=== PATIENT | female | born 1955 | race Caucasian/White ===

== ENCOUNTER 2020-07-31 11:05 | Outpatient (CLI) | payer MEDICARE, MEDICAID, SELFPAY ==
[2020-07-31 11:28] LABS: Basophils Percent Auto 0.3 % (0.2-1.2); Eosinophils Absolute Auto 0.2 K/mm3 (0-0.3); Hematocrit 37.9 % (37.0-47.0); Immature Granulocyte Absolute 0.05 K/mm3 (0.00-0.031); Immature Granulocyte Percent A 0.5 % (0-0.5); Lymphocytes Absolute Auto 1.74 K/mm3 (0.9-3.2); Lymphocytes Percent Auto 17.7 % (18.3-44.2); Mean Corpuscular HGB Conc 31.7 g/dl (32-36); Mean Corpuscular Hemoglobin 27.5 pg (26-34); Mean Corpuscular Volume 86.9 fl (80-100); Mean Platelet Volume 9.3 fl (7.4-10.4); Monocytes Absolute Auto 0.9 K/mm3 (0.1-0.6); Monocytes Percent Auto 9.5 % (2.6-8.5); Neutrophils Absolute Auto 6.9 K/mm3 (1.3-6.7); Platelet Count Result 285 k/mm3 (150-375); Red Blood Count 4.36 M/mm3 (4.2-5.4); Red Cell Distribution Width 15.2 % (11.5-14.5); White Blood Count 9.8 K/mm3 (4.5-10.0)
[2020-07-31 15:12] LABS: Iron 38 ug/dL (37-170)
[2020-07-31 15:22] LABS: Percent Iron Saturation 10 % (20-50)
== END 2020-07-31 11:06 | disposition home or self-care (01) ==
PROVIDERS: PCP Internal Medicine; Visit Provider Internal Medicine Hematology & Oncology
DX: D50.9 Iron deficiency anemia, unspecified (principal)
CPT/HCPCS: 36415; 82728; 83540; 83550; 85025

== ENCOUNTER 2025-03-19 10:04 | Emergency (ER) | payer MEDICARE, MEDICAID, SELFPAY ==
--- NOTE | ~2025-03-19 | XR_ITS ---
XR shoulder LT min 2V Ordering provider: Vitaliy Otto III, DO History: . FALL, PAIN AND DECREASED rom, LEFT SHOULDER . Comparison: None. FINDINGS: BONES: No acute fracture or dislocation. JOINT SPACES: The acromioclavicular joint is normal. The glenohumeral joint is normal. SOFT TISSUES: Normal. Stents are seen in the left brachiocephalic and subclavian vessels area. IMPRESSION: No acute osseous abnormality left shoulder. Reviewed, dictated and finalized at location A.
[2025-03-19 10:09] VITALS: BP 129/64; PULSE 74; RESP 16; TEMP 36.6; O2SAT 94
--- OUTSIDE RECORDS SUMMARY | 2025-03-19 10:51 | XMS_ITS | Encounter Summary ---
Author Organization [facility] Health Address [address] [place] [address] [place] [address] Care Team Providers Care Corporation Officer Name Role Phone Mar Reynolds MD Primary Care Provider Reason for Visit * Reason Onset Date Comments Appointment 08/17/2019 Encounter Details Date Type Department Care Team (Late st Contact Info) Description 08/17/2019 Telephone [facility] [address] [place], [place] [id number] Lisa Cancino Appointment Social History Tobacco Use Types Packs/Day Years Used Date Smoking Tobacco: Former Cigarettes 2 46 Smokeless Tobacco: Never Comments:QUIT 9 YEARS AGO Alcohol Use Standard Drinks/Week Comments Yes 0 (1 standard drink = 0.6 oz pur e alcohol) HEAVY IN PAST, QUIT-1990 Comments Unknown Sex and Gender Information Value Date Recorded Sex Assigned at Not on file Legal Sex Female 9:49 AM CUTTER DOWN Gender Identity Not on file Sexual Orientation Not on file documented as of this encounter Miscellaneous Notes * Telephone Encounter - Lisa Cancino - 08/17/2019 3:16 PM CDT 1st attempt to contact this patient to reschedule appointment. No answer vm left. documented in this encounter Plan of Treatment Not on file documented as of this encounter Visit Diagnoses Not on filedocumented in this encounter Care Teams Corporation Officer Relationship Specialty Start Date End Date Mar Reynolds MD [address] [facility] [address] [place] [id number] PCP - General Internal Medicine 12/27/18 documented as of this encounter
--- OUTSIDE RECORDS SUMMARY | 2025-03-19 10:51 | XMS_ITS | Referral Summary ---
Author Organization [facility] Physician Office Building [address] [place] [address] Care Team Providers Care Lip Of Shank Cutter Name Role Phone Khalif Reynolds MD Primary Care Provide r Chriss Hendrickson MD Unavailable [phone] Zaid Adams MD Unavailable [phone] Nadir Ross MD Unavailable [phone] Encounters Date Type Department Care Team Description 03/07/2025 2:00 PM CDT Office Visit [facility] Pulmonary at [address] [place] [id number] Elizabeth Barr NP Immunoglobulin G subclass deficiency (HCC) (Primary Dx); Moderate chronic obstructive pulmonary disease (HCC); Obstructive sleep apnea 03/01/2025 7:00 PM CDT - 03/01/2025 11:59 PM CDT Hospital Encounter [facility] 1 [place] [address] Obstructive sleep apnea Discharge Disposition: Discharge to home or self care 02/12/2025 9:30 AM CDT Office Visit [facility] Sleep Medicine at [address] [place] [phone] Luli Devlin MD Obstructive sleep apnea (Primary Dx); Hypersomnia; Obesity, unspecified class, unspecified obesity type, unspecified whether serious comorbidity present 02/08/2025 9:30 AM CDT Office Visit [facility] Minimally Invasive Surgery [address] [place] [address] 12th Floor, [place] [address] Asad Aldridge MD Incisional hernia, without obstruction or gangrene (Primary Dx); Malignant neoplasm of right ovary (HCC) 01/14/2025 Telephone [facility] [address] [facility] [address] [place] [address] Asad Aldridge MD 01/14/2025 Telephone [facility] [id number] [place] [address] [address] [place] [address] Cat Villalba MD appointment schedule from Last 3 Months Allergies Active Allergy Reactions Criticality Noted Date Comments Doxycycline Hives Medium 12/12/2020 Levofloxacin Rash,Hives Medium 08/16/2014 Sulfa (Sulfonamide Antibiotics) Rash,Hives Medium 1001/2014 Medications calcitRIOL (ROCALTROL) 0.25 mcg capsule Take 1 capsule (0.25 mcg total) by mouth nightly Active lisinopril (PRINIVIL,ZESTRI L) 2.5 mg tablet Take 1 tablet (2.5 mg total) by mouth daily after lunch Active metoprolol (LOPRESSOR) 25 mg tablet Take 1 tablet (25 mg total) by mouth 2 (two) times a day Active montelukast (SINGULAIR) 10 mg tabletIndication s:Maintenance Therapy for Asthma Take 1 tablet (10 mg total) by mouth daily before lunch Active nitroglycerin (NITROSTAT) 0.[address] 1 tablet (0.4 mg total) under the tongue every 5 (five) minutes as needed for chest pain Active pantoprazole DR (PROTONIX) 40 mg EC tablet Take 1 tablet (40 mg total) by mouth every morning Active linaclotide (LINZESS) 290 mcg capsule Take 1 capsule (290 mcg total) by mouth every morning Active fluticasone propionate (FLONASE) 50 mcg/actuation nasal spray Administer 2 sprays into each nostril every morning 020 Active BD Ultra-Fine Meg Pen Needle 32 gauge x needle 022 Active allopurinoL (ZYLOPRIM) 300 mg tablet Take 1 tablet (300 mg total) by mouth every morning Active albuterol 0.63 mg/3 mL nebulizer solution Take 3 mL (0.63 mg total) by nebulization 2 (two) times a day Active multivit ujlilrto-xstt-DS -calcium (THERA-M) 9 mg iron-400 mcg tablet Take 1 tablet by mouth daily 30 tablet Active Additional Information Patient not taking.Reported on 03/07/2025 glimepiride (AMARYL) 2 mg tablet Take by mouth 2 (two) times a day before breakfast and dinner Active gabapentin (NEURONTIN) 300 mg capsule Take 1 capsule (300 mg total) by mouth 2 (two) times a day Active potassium chloride ER 20 mEq CR tablet Take 1 tablet (20 mEq total) by mouth Active Prolia 60 mg/mL syringe INJECT 1 ML SUBCUTANEOUSLY DIRECTED Active levothyroxine (SYNTHROID) 25 mcg tablet Take 1 tablet (25 mcg total) by mouth daily Active ipratropium (ATROVENT) 0.02 % nebulizer solution USE 1 VIAL VIA NEBULIZER EVERY 6 HOURS NEEDED Active Jardiance 10 mg tablet Take 1 tablet (10 mg total) by mouth daily Active budesonide-formo teroL (SYMBICORT) 160-4.5 mcg/actuation inhaler Inhale 2 puffs 2 (two) times a day Rinse mouth with water after use to reduce aftertaste and incidence of candidiasis. Do not swallow. 1 each Active albuterol HFA (ProAir HFA) 90 mcg/actuation inhaler Inhale 2 puffs every 4 (four) hours as needed for wheezing 8.5 g 2024 Active rosuvastatin (CRESTOR) 40 mg tablet Take 1 tablet (40 mg total) by mouth daily Active ipratropium-albu teroL (COMBIVENT RESPIMAT) 20-100 mcg/actuation inhalerIndicatio ns:Chronic Obstructive Pulmonary Disease with Bronchospasms Inhale 1 puff 4 (four) times a day as needed for wheezing 4 g 2 024 2024 Active budesonide-formo teroL (SYMBICORT) 160-4.5 mcg/actuation inhaler Inhale 2 puffs 2 (two) times a day Rinse mouth with water after use. Do not swallow. Active ensifentrine (Ohtuvayre) 3 mg/2.5 mL suspension for nebulization Inhale PRN Active zolpidem (AMBIEN) 10 mg tabletIndication s:Sleep-Onset Insomnia Take 1 tablet (10 mg total) by mouth nightly as needed for sleep (for sleep study) 1 tablet 025 Active torsemide (DEMADEX) 100 mg tablet Take 1 tablet (100 mg total) by mouth 2 (two) times a day 025 Active Trulicity 3 mg/0.5 mL pen injector Inject 0.5 mL (3 mg total) under the skin once a week 025 Active azithromycin (ZITHROMAX) 500 mg tabletIndication s:Moderate chronic obstructive pulmonary disease (HCC) Take 1 tablet (500 mg total) by mouth 3 (three) times a week On Tuesday and Tuesday 36 tablet 3 025 Active apixaban (ELIQUIS) 2.5 mg tablet Take 1 tablet (2.5 mg total) by mouth 2 (two) times a day for 28 days 56 tablet 022 2021 Discontinued cefuroxime (CEFTIN) 250 mg tablet every 12 hours 025 2024 Active Problems Problem Noted Date Diagnosed Date Incarcerated incisional hernia 02/21/2025 Incisional hernia, without obstruction or gangre ne 02/08/2025 Metatarsalgia of left foot 09/24/2024 Pain of left heel 05/29/2024 Plantar fasciitis of left foot 05/29/2024 Skin tag 04/17/2024 Skin lesion 12/07/2023 Pneumonia due to Streptococcus 10/02/2023 Coronary arteriosclerosis 09/23/2023 Overview (09/23/2023): s/p stent 09/28 Immunoglobulin G subclass deficiency 09/19/2023 Osteoarthritis of left knee 09/15/2023 Erythrocytosis 09/08/2023 Elevated liver enzymes 08/30/2023 Osteoporosis 07/19/2023 Hypokalemia 06/02/2023 Steatosis of liver 05/30/2023 Pruritic rash 03/07/2023 Neuropathy 01/20/2023 COVID-19 11/11/2022 Infection due to Klebsiella pneumoniae Multiple nodules of lung 09/07/2022 Assessment & Plan (05/10/2024 11:59 AM CDT): These appear to be stable per last CT imaging She has been followed with CT chest abdomen pelvis through Oncology with her next CT scheduled for June She does qualify for annual low-dose cancer screening, these will start after surveillance imaging through oncology is completed Hyperglycemia 09/01/2022 Urinary tract infectious disease 06/24/2022 Adnexal mass 06/02/2022 Severe malnutrition 06/02/2022 Abnormal voice 05/20/2022 Chronic pain syndrome 05/20/2022 Constipation 05/20/2022 Neck pain 05/20/2022 Pain in limb 05/20/2022 Onychomycosis 05/20/2022 Rectal hemorrhage 05/20/2022 Swelling of upper arm 05/20/2022 Syncope and collapse 05/20/2022 Tinea corporis 05/20/2022 Urinary incontinence 05/20/2022 Peripheral vascular disease 05/20/2022 Ovarian mass 05/18/2022 Overview (05/18/2022): Added automatically from request for surgery [id number] Abdominal pain 05/17/2022 Ovarian cancer 05/16/2022 Overview (02/14/2023): STEVE/BSO May 2022, then chemotherapy Pseudomonas aeruginosa infection 05/10/2022 Infection due to Pseudomonas species 05/10/2022 Chronic cough 03/19/2022 Assessment & Plan (05/10/2024 12:04 PM CDT): She has a history of Streptococcus and Pseudomonas infection (06/2023) She had no clinical benefit from Augmentin that was prescribed several weeks ago and continues to have yellow/green sputum in increased amounts Check sputum culture Uncontrolled type 2 diabetes mellitus 01/29/2022 Dyslipidemia 01/28/2022 Pain in left foot 12/28/2021 Arthralgia of left knee 12/10/2021 Selective deficiency of IgG 09/01/2021 Dystrophia unguium 01/21/2021 Ganglion cyst 09/24/2020 Leukemoid reaction 07/31/2020 Avulsion of toenail 06/02/2020 Cysts of both ovaries 04/14/2020 Plantar fasciitis of right foot 02/11/2020 Diabetic neuropathy 01/14/2020 Subclavian steal syndrome 01/14/2020 Hyperthyroidism 01/14/2020 Abnormal cardiovascular stress test 06/20/2019 Allergic rhinitis 02/05/2019 Anemia 02/05/2019 CAD (coronary artery disease) 02/05/2019 Overview (04/14/2020): Stented 2013, 2015, 2019 Depression 02/05/2019 GERD (gastroesophageal reflux disease) 9 Overview (04/14/2020): EGD 10/19/17 Gout 02/05/2019 Hyperlipidemia 02/05/2019 Hypertension 02/05/2019 IBS (irritable bowel syndrome) 02/05/2019 Overview (04/14/2020): Constipation Migraine 02/05/2019 NAFLD (nonalcoholic fatty liver disease) 019 Overview (02/14/2023): 08/14/18 CT w/o contrast: NAFLD 05/07/19 Fibroscan CAP 321, LSM 9.4 kPa dwp 01/14/20 Fibroscan CAP 323, LSM 10.5 kPa dwp 08/14/18 CT w/o contrast: NAFLD 05/07/19 Fibroscan CAP 321, LSM 9.4 kPa dwp 01/14/20 Fibroscan CAP 323, LSM 10.5 kPa dwp 02/07/23 Fibroscan CAP 301, LSM 5.7 kPa dwp Morbid obesity 02/05/2019 Obstructive sleep apnea 02/05/2019 Overview (04/14/2020): CPAP since about 2016 Assessment & Plan (03/10/2025 8:24 PM CDT): Continue PAP use with all sleep She is aware of the risks of uncorrected sleep apnea I have reinforced weekly cleaning and frequent supply replacement She should follow closely with sleep medicine Assessment & Plan (10/18/2024 1:36 PM CLOTH MENDER): Continue PAP use with all sleep She is aware of the risks of uncorrected sleep apnea I have reinforced weekly cleaning Assessment & Plan (05/10/2024 12:00 PM CDT): Continue PAP use with all sleep She is aware of the risks of uncorrected sleep apnea Osteoarthritis 02/05/2019 Type 2 diabetes mellitus 02/05/2019 Vitamin D deficiency 02/05/2019 Lipoma 01/08/2019 Retroperitoneal mass 05/29/2018 Renal mass 03/06/2018 Respiratory infection due to fungus 01/11/2018 Goiter 11/22/2017 Assessment & Plan (11/22/2017 4:45 PM CLOTH MENDER): Ultrasound performed ( see report ) No solid nodules that need attention are visualized Continue to watch, no indication for any intervention at this point. Subclinical hyperthyroidism 11/22/2017 Assessment & Plan (02/21/2018 3:49 PM CDT): Check TFT's Start Tapazole if indicated Otherwise, f/u in 6 m Assessment & Plan (11/22/2017 4:44 PM CLOTH MENDER): Will check TFTs Stop PTU ( risk of liver damage ) If TFT's are normal, will recheck and reassess in 3 months Otherwise, will consider use of Tapazole Asthma 05/26/2017 Moderate chronic obstructive pulmonary disease 0 05/26/2017 Assessment & Plan (03/10/2025 8:22 PM CDT): Continue Symbicort 160/4.5 twice daily While she is working she will continue DuoNebs while at home alternating with Combivent when working, not to exceed 4 times daily When she has no longer working we may investigate switch to traditional LAMA therapy or nebulized yupelri Her recent liver enzymes were normal. We have discussed additional therapies to decrease exacerbation frequency Otuvayre was cost prohibitive I will start her on Azithromycin three times weekly. I would also consider biologics cautiously, I will request recent CBC from her PCM We have discussed signs and symptoms that would require additional evaluation or change to her plan of care Assessment & Plan (10/18/2024 1:35 PM CLOTH MENDER): Continue Symbicort 160/4.5 twice daily While she is working she will continue DuoNebs while at home alternating with Combivent when working, not to exceed 4 times daily When she has no longer working we may investigate switch to traditional LAMA therapy Her recent liver enzymes were normal. We have discussed additional therapies to decrease exacerbation frequency I will start her on Otuvayre twice daily via nebulizer We have discussed signs and symptoms that would require additional evaluation or change to her plan of care Assessment & Plan (05/10/2024 12:02 PM CDT): Continue Symbicort 160 twice daily While she is working she will continue DuoNebs while at home alternating with Combivent when working, not to exceed 4 times daily When she has no longer working we may investigate switch to traditional LAMA therapy She has previously had elevated liver enzymes however consider roflumilast if sputum culture returns negative Mitral regurgitation 02/09/2017 Stage 2 chronic kidney disease 08/24/2016 Dyspnea on exertion 10/29/2015 Dizziness 09/17/2015 Immunizations Immunization Administration Dates Next Due Hep B, Unspecified 03/18/2023 Influenza, Quadrivalent, Hig h Dose, Preservative Free, Intrr 08/15/2022 Influenza, Quadrivalent, Spl it, Intramuscular 07/19/2019 Influenza, Quadrivalent, Spl it, Preservative Free, Intramuscular 08/27/2020,07/19/2019 Influenza, Trivalent, IM (MDV) 09/07/2021,2012 Pfizer Sars-Cov-2 Bivalent V accination (12+ YRS) 09/06/2022,03/01/2022 Pneumococcal Polysaccharide PPV23 12/17/2015 Sars-CoV-2, Unspecified 09/06/2022,03/01/2022, Tdap 07/19/2019 Social History Tobacco Use Types Packs/Day Years Used Date Smoking Tobacco: Former Cigarettes 1.3 44 1 967 - 2011 Smokeless Tobacco: Never Tobacco Cessation:Counseling Given: Not Answered Alcohol Use Standard Drinks/Week Comments No 0 (1 standard drink = 0.6 oz pur e alcohol) AUDIT-C Answer Date Recorded Q1: How often do you have a drink containing alc ohol? Monthly or less 2022 Q2: How many drinks containi ng alcohol do you have on a typical day when you are drinking? 1 or 2 2022 Q3: How often do you have si x or more drinks on one occasion? Never 2022 PHQ-2 Answer Date Recorded PHQ-2 Score 0 07/05/2019 Personal Safety Answer Date Recorded Have you ever been in or are you currently in a harmful physical or emotional relationship or is someone making you feel afraid or unsafe? Denies 05/03/2023 Comments No Sex and Gender Information Value Date Recorded Sex Assigned at Not on file Legal Sex Female 12:59 PM CLOTH MENDER Gender Identity Not on file Sexual Orientation Not on file Last Filed Vital Signs Vital Sign Reading Time Taken Comments Blood Pressure 114/50 03/07/2025 1:45 PM CDT Pulse 90 03/07/2025 1:45 PM CDT Temperature 36.4 C (97.5 F) 03/07/2025 1:45 PM CDT Respiratory Rate 20 02/21/2025 10:18 AM CDT Oxygen Saturation 93% 03/07/2025 1:45 PM CDT Inhaled Oxygen Concentration - - Weight 85.4 kg (188 lb 3.2 oz) 03/07/2025 1:45 P M CDT Height 157.5 cm (5' 2 ) 03/07/2025 1:45 PM CDT Body Mass Index 34.42 03/07/2025 1:45 PM CDT Plan of Treatment Upcoming Encounters Date Type Department Care Team (Late st Contact Info) Description 05/21/2025 Hospital Encounter [facility] Operating Room 1 [place] [id number] Asad Aldridge MD [address] [place] [address] (work) Scheduled Procedures Name Priority Associated Diagnoses Date/Ti me XI REPAIR INCISIONAL HERNIA - LAPAROSCOPIC ROBOTIC ASSISTED RETRO-RECTUS APPROACH Incarcerated incisional hernia Medical Devices Implanted Type Area Shuttle Threader Device Identifier Shelf Expiration Date Model / Serial / Lot [employer] Xcela Power Port 8fr [id number] - [id number] Implanted:Qty: 1 on 07/09/2022 at [facility] [employer] 01/05/2027 [id number] / / [id number] Procedures Procedure Name Priority Date/Time Associated Diagnosis Comments PSG (SIMPLE) Routine 03/05/2025 Obstructive sleep apnea COMPREHENSIVE METABOLIC PANEL Routine 10/02/2024 10:02 AM CLOTH MENDER HEMOGLOBIN A1C Timed 05/17/2022 12:15 AM CDT LIPID PANEL Timed 05/17/2022 12:15 AM CDT from Last 3 Months or Most Recently Relevant to Health Maintenance Results * PSG (03/05/2025) Impressions Luli Devlin MD - 03/05/2025 SPLIT NIGHT POLYSOMNOGRAPHY History: Crissy Parham is a 69 y.o. female who presented for a baseline polysomnogram. Reason for sleep study: Obstructive sleep apnea, needs a new device [place] sleepiness score: 1 Weight: 189 lbs BMI: 34.66 Procedure: This overnight split night polysomnogram was performed with the surgical scrub technologist in attendance. Patient is studied with multiple channel polysomnography to include EEG sleep stage recording, cardio-respiratory monitoring, monitoring for limb movements as well as videotaping. Central, frontal, occipital and temporal EEG, bilateral EOG, submental EMG, oral and nasal airflow, thoracoabdominal motion, bilateral anterior tibialis EMG, one lead EKG, snore sensor, pulse oximetry and transcutaneous CO2 were monitored. Sleep stages, periodic limb movements, EEG arousals and respiratory events were scored according to the criteria from The [place] [employer] (AASM) Manual for the scoring of sleep and associated events - version 2.6. Positive airway pressure titration was done using continuous positive airway pressure (CPAP). Findings: Diagnostic portion Baseline parameters: Baseline heart rate=80/m, Oxygen saturation =97% Sleep architecture: Diagnostic polysomnogram revealed total recording time of 229.5 minutes and total sleep time of 166.0 minutes with sleep efficiency of 72.3%. Sleep onset latency was 36.0 minutes, and REM latency 89.5 minutes. N1 9.0%, N2 69.3%, N3 13.6% and REM 8.1% accounted for the total sleep time during the diagnostic portion. EEG profile: EEG was reviewed. Snoring profile: The patient had mild snoring. Snoring was not associated with arousals. Respiratory analysis during diagnostic study: A total of 0 obstructive apneas, 0 mixed apneas, 0 central apneas and 40 hypopneas were seen with AHI of 14.5 per hour. In addition, 5 Respiratory Effort Related Arousals (RERAs) were seen with AHI+RERA index or respiratory disturbance index (RDI) of 16.3. Respiratory events occurred more in supine than non-supine position with a supine AHI 29.1, supine RDI of 32.6, nonsupine AHI of 3.8, and nonsupine RDI of 4.4 and during REM sleep with REM AHI of 57.8 and non-REM AHI 10.6. The study was split after observing significant obstructive respiratory events. Therapeutic portion Sleep architecture: PAP titration revealed total recording time of 215.9 minutes and total sleep time of 162.0 minutes with sleep efficiency of 75.0%. N1 5.2%, N2 63.6%, N3 6.2% and REM 25.0% accounted for the total sleep time during the therapeutic portion. Respiratory analysis during PAP titration: A total of 9 obstructive apneas, 0 mixed apneas, 1 central apneas, 24 hypopneas, and 3 Respiratory Effort Related Arousals (RERAs) were seen. PAP titration: CPAP was started at 4 cm of water. CPAP was incrementally increased to 11 cm of water. Sleep apnea was corrected at final CPAP pressure 11 cm of water where apnea hypopnea index was 0.0 and supine REM sleep was studied. The patient reported no significant change following CPAP titration. Oximetry data: Lowest oxygen saturation was 84%, and this was associated with a respiratory event. The patient had an O2 saturation < 88% for 18.5 minutes. Limb movement profile: A total of 105 periodic limb movements were noted, of which 36 movements were associated with arousal. Total movement index was 38.0 per hour and movement with arousal index was 13.0 per hour. Parasomnia profile: No abnormal behavior to suggest parasomnia was noted. EKG analysis: revealed normal sinus rhythm. Interpretation and Recommendations: This is an abnormal split night polysomnogram due to the presence of: 1. Moderate obstructive sleep apnea during the diagnostic portion of the study. This is supported by snoring, increased apnea/hypopnea index of 14.5, respiratory disturbance index of 16.3 and significant desaturations. Respiratory events occurred more in supine than non-supine position with a supine AHI 29.1, supine RDI of 32.6, nonsupine AHI of 3.8, and nonsupine RDI of 4.4 and during REM sleep with REM AHI of 57.8 and non-REM AHI 10.6. 2. Alleviation of obstructive sleep apnea at 11 cm of water during the therapeutic portion of the study. 3. CPAP at 11 cm of water is recommended for use. 4. ResMed, air touch, F20, small, fullface mask was used during titration. 5. Multiple factors can be contributory such as obesity, thyroid disease and structural/obstructive abnormalities in the upper airway. An evaluation and management of these factors may be beneficial. 6. Hypnotics, sedatives, and related medications have the potential of worsening the apnea and should be avoided. 7. Patients with sleep apnea may have excessive daytime hypersomnolence. If that is the case, driving or handling heavy machinery should be avoided until the apnea and excessive sleepiness have resolved. 8. Weight loss for ideal body weight range is recommended 9. Many periodic limb movements of sleep (PLMS) noted. PLMS can be associated with conditions such as restless leg syndrome, iron deficiency anemia, uremia, peripheral neuropathy, and use of medications such as tricyclic antidepressants. Clinical correlation is recommended. 10. Prolonged sleep latency and reduced sleep efficiency: Patient has prolonged sleep onset latency of 36.0 minutes and reduced sleep efficiency of 72.3%. Factors like, psychiatric illness, insomnia or chronic pain may be contributory as well as poor sleep hygiene and/or daytime napping. Clinical correlation is recommended. Luli Devlin MD [facility] Sleep Medicine Narrative Luli Devlin MD - 03/05/2025 In lab for review Luli Devlin MD SLEEP CENTER ORDERABLES Final Re sult * (ABNORMAL) Comprehensive metabolic panel (10/02/2024 10:02 AM CLOTH MENDER) Glucose 130(H) 65 - 99 mg/dL [facility] Comment: Fasting reference interval For someone without known diabetes, a glucose value >125 mg/dL indicates that they may have diabetes and this should be confirmed with a follow-up test. BUN 15 7 - 25 mg/dL [facility] Creatinine 1.01 0.50 - 1.05 mg/dL [facility] eGFR 61 > OR = 60 mL/min/1.7 3m2 [facility] BUN/creat ratio SEE NOTE: 6 - 22 (calc) [facility] Comment: Not Reported: BUN and Creatinine are within reference range. Sodium 137 135 - 146 mmol/L [facility] Potassium, pl 3.8 3.5 - 5.3 mmol/L [facility] Chloride 101 98 - 110 mmol/L [facility] CO2 26 20 - 32 mmol/L [facility] Calcium 9.4 8.6 - 10.4 mg/dL [facility] Protein, sr 6.8 6.1 - 8.1 g/dL [facility] Albumin 4.1 3.6 - 5.1 g/dL [facility] GLOBULIN 2.7 1.9 - 3.7 g/dL (calc) [facility] Alb/glob ratio 1.5 1.0 - 2.5 (calc) [facility] Bilirubin, total 0.6 0.2 - 1.2 mg/dL [facility] Alk phos 95 37 - 153 U/L [facility] AST 18 10 - 35 U/L [facility] ALT (SGPT) 18 6 - 29 U/L [facility] 10/02/2024 10:0 2 AM CLOTH MENDER 10/02/2024 10:02 AM CLOTH MENDER Lisseth Peters MD LAB BLOOD ORDERABLES Fin al Result Performing Organization Address City/State/[facility] de [facility] Number [facility] [address] [place] [address] * (ABNORMAL) Hemoglobin A1c (05/17/2022 12:15 AM CDT) Hgb A1C 6.0(H) 4.0 - 5.6 % [facility] Estimated Average Glucose 126 mg/dL [facility] Comment: The ADA recommends reporting an estimated Average Glucose (eAG) with all Hemoglobin A1c results using the equation derived from a study of 507 normal and diabetic adults. Minority populations were underrepresented and children were not included. (Diabetes Care 2020; 43(S1): S66-S76). The eAG is not equivalent to a fasting glucose. Blood 05/17/2022 12:1 5 AM CDT 05/17/2022 1:26 AM CDT [facility] Willie Peters MD LAB BLOOD ORDERABLES Fin al Result Performing Organization Address [facility] [facility] de Phone Number [facility] Department [place] [address] * Lipid panel (05/17/2022 12:15 AM CDT) Pathologist [facility] Cholesterol 88 30 - 199 mg/dL [facility] Comment: Interpretive Data Ages < or = 19 years Acceptable: <170 mg/dL Borderline high: 170-199 mg/dL High: >or= 200 mg/dL Ages > or = 20 years Desirable: <200 mg/dL Borderline high: 200-239 mg/dL High: >or= 240 mg/dL Literature References: 1. Expert Panel on Integrated Guidelines for Cardiovascular Health and Risk Reduction in Children and Adolescents. Pediatrics 2011;128:S213 2. NCEP Expert Panel. Circulation 2004;110:227 Current Interpretive Data was last revised on 2018. Triglycerides 100 <=149 mg/dL [facility] Comment: Interpretive Data Ages < or = 9 years Acceptable: <75 mg/dL Borderline high: 75-99 mg/dL High: >or= 100 mg/dL Ages 10 to 20 years Acceptable: <90 mg/dL Borderline high: 90-129 mg/dL High: >or= 130 mg/dL Ages > or = 20 years Desirable: <150 mg/dL Borderline high: 150-199 mg/dL High: 200-499 mg/dL Very high: >or= 499 mg/dL Literature References: 1. Expert Panel on Integrated Guidelines for Cardiovascular Health and Risk Reduction in Children and Adolescents. Pediatrics 2011;128:S213 2. NCEP Expert Panel. Circulation 2004;110:227 Current Interpretive Data was last revised on 2018. HDL 42 >=40 mg/dL [facility] Comment: Interpretive Data Ages < or = 19 years Acceptable: >45 mg/dL Borderline low: 40-45 mg/dL Low: <40 mg/dL Ages > or = 20 years Desirable: >or= 60 mg/dL Low: <40 mg/dL Literature References: 1. Expert Panel on Integrated Guidelines for Cardiovascular Health and Risk Reduction in Children and Adolescents. Pediatrics 2011;128:S213 2. NCEP Expert Panel. Circulation 2004;110:227 Current Interpretive Data was last revised on 2018. LDL, calculated 26 <=129 mg/dL [facility] Comment: Interpretive Data Ages < or = 19 years Acceptable: <110 mg/dL Borderline high: 110-129 mg/dL High: >or= 130 mg/dL Ages > or = 20 years Optimal: <100 mg/dL Near optimal: 100-129 mg/dL Borderline high: 130-159 mg/dL High: >160 mg/dL Literature References: 1. Expert Panel on Integrated Guidelines for Cardiovascular Health and Risk Reduction in Children and Adolescents. Pediatrics 2011;128:S213 2. NCEP Expert Panel. Circulation 2004;110:227 Current Interpretive Data was last revised on 2018. Non-HDL Cholesterol 46 mg/dL [facility] Comment: Interpretive Data Ages < or = 19 years Acceptable: <120 mg/dL Borderline high: 120-144 mg/dL High: >145 mg/dL Ages > or = 20 years When triglycerides are >200 mg/dL, Non-HDL cholesterol is a secondary target of therapy with treatment goals that are 30 mg/dL greater than the LDL cholesterol target. Literature References: 1. Expert Panel on Integrated Guidelines for Cardiovascular Health and Risk Reduction in Children and Adolescents. Pediatrics 2011;128:S213 2. NCEP Expert Panel. Circulation 2004;110:227 Current Interpretive Data was last revised on 2018. Chol/HDL ratio 2 [facility] Blood 05/17/2022 12:1 5 AM CDT 05/17/2022 1:26 AM CDT us Premal Willie Peters MD LAB BLOOD ORDERABLES Fin al Result [facility] Department [place] [address] from Last 3 Months or Most Recently Relevant to Health Maintenance Insurance * Guarantor: Crissy Parhma Account Type Relation to Patient Date of Phone Billing Address Personal/Family Self 1955 [address] [place] [address] [facility] MEDICARE ADVANTAGE IDPA * Guarantor: Crissy Parham Account Type Relation to Patient Date of Phone Billing Address Personal/Family Self 1955 [address] [place] [address] IDPA [facility] MEDICARE ADVANTAGE IDNE [facility] MEDICARE ADVANTAGE Advance Directives For more information, please contact: [phone] * Full Code (Latest Code Status on File) Date Activated Date Inactivated Comments 05/03/2023 12:51 PM 05/04/2023 4:49 AM * Full Code Date Activated Date Inactivated Comments 09/03/2022 7:43 AM 09/04/2022 4:50 AM * Full Code Date Activated Date Inactivated Comments 07/09/2022 7:09 AM 07/10/2022 4:47 AM * Full Code Date Activated Date Inactivated Comments 05/16/2022 11:52 PM 05/18/2022 9:16 PM Care Teams Lip Of Shank Cutter Relationship Specialty Start Date End Date Khalif Reynolds MD [address] [facility] [address] [place] [address] PCP - General Internal Medicine 10/28/17 Chriss Hendrickson MD [address] [place] [address] [place] [address] Referring Physician Obstetrics and Gynecology 01/18/20 Zaid Adams MD [facility] [place] [address] Referring Physician Gastroenterology 02/14/23 Nadir Ross MD [address] [place] [address] Consulting Physician Cardiovascular Disease 02/14/23
--- OUTSIDE RECORDS SUMMARY | 2025-03-19 10:51 | XMS_ITS | Continuity of Care Document ---
Author Organization [facility] Eye [facility] Address [address] [place] [address] [address] [place] [address] Phone Care Team Providers Care Line Construction Superintendent Name Role Phone Parker Cabral Unavailable Unavailable Procedures Procedure Date Visual Field Examination(s) Visual Field Examination(s) Eye Exam & Treatment Optic Nerve Head Eval No Script Corneal Pachymetry Eye Exam, New Patient Advance Directives Directive Yes / No Effective Date File Name No Information Encounters Encounter Description Practice Location Reason(s) For Visit Diagnoses Date Provider Providers Copied on Encounter [facility], [address] [place] [address] [address], [place], [place], [id number], tel:[phone] [facility] No Information 2-200 9 Krishnasamy Parker. [address] [place] [address], [facility], [place]. tel:[phone] Referring Provider: Parker douglas, [address] [place] [address], [facility]. tel:[phone] [facility], [address] [place] [address] [address], [place], [place], [id number], tel:[phone] [facility] No Information 5-200 9 Krishnasamy Parker. [address] [place] [address], [facility], [place]. tel:[phone] Referring Provider: Parker douglas, [address] [place] [address] [address], [place], [address]. tel:[phone] [facility], [address], [place], [place], [id number], tel:[phone] [facility] No Information Feb-2 7-200 9 Misha Herringhil. [address] [place] [address] [address], [place], [facility], . tel:[phone] Referring Provider: Parker douglas, [address] [place] [address] [address], [place], [place], [facility]. tel:[phone] [facility], [address] [place] [address], [place], [place], [id number], tel:[phone] [facility] No Information March-3 0-200 7 Cannon OD Jose. [address] [place] [address] , [address], [place], [address], . tel:[phone] Family History Family Member Type Diagnosis Age At Onset No Information Payers Payer name Insurance type Covered republican ID Authoriza tion(s) Medicare [facility] [id number] Medicaid [facility] [id number] Social History Type Description Quantity Date Captured Comments Sex Female Smoking Status No Information Chief Complaint And Reason For Visit No Information Reason For Referral Reason For Referral No Information History Of Present Illness Encounter Date Complaint History Of Prese nt Illness No Information Functional Status Date Functional Assessmen t No Information Instructions Date Instruction Additional Infor mation No Information Assessments Type Assessment Date No Information Patient Care Teams Name Effective Dates (start - stop) Status Members No Information
--- OUTSIDE RECORDS SUMMARY | 2025-03-19 10:51 | XMS_ITS ---
Author Organization [facility] [address] [place] [address] Care Team Providers Care Paint Preparer Name Role Phone Khalif Reynolds MD Primary Care Provide r Chriss Hendrickson MD Unavailable [phone] Zaid Adams MD Unavailable Nadir Ross MD Unavailable Active Problems Problem Noted Date Diagnosed Date [...] (05/18/2022): Added automatically from request for surgery [id number] Abdominal pain 05/17/2022 Ovarian cancer 05/16/2022 Overview [...] artery disease) 02/05/2019 Overview (04/14/2020): Stented 2013, 2014, 2018 Depression 02/05/2019 GERD (gastroesophageal reflux disease) 9 [...] medicine Assessment & Plan (10/18/2024 1:36 PM GOLD NIB GRINDER): Continue PAP use with all sleep She [...] 11/22/2017 Assessment & Plan (11/22/2017 4:45 PM GOLD NIB GRINDER): Ultrasound performed ( see report ) No solid nodules that need attention are visualized Continue to watch, no indication for any intervention at this point. Subclinical hyperthyroidism 11/22/2017 Assessment & Plan (02/21/2018 3:49 PM CDT): Check TFT's Start Tapazole if indicated Otherwise, f/u in 6 m Assessment & Plan (11/22/2017 4:44 PM GOLD NIB GRINDER): Will check TFTs Stop PTU ( risk [...] care Assessment & Plan (10/18/2024 1:35 PM GOLD NIB GRINDER): Continue Symbicort 160/4.5 twice daily While she [...] 08/24/2016 Dyspnea on exertion 10/29/2015 Dizziness 09/17/2015 Current Treatment and Therapy Plans IV Maintenance Therapy Plan* Plan Start Date:07/09/2022 Plan Provider:Lisseth Peters MD Linked Problems Ovarian cancer (HCC)Ovarian mass Treatment Medications No medications scheduled. PACLItaxel / CARBOplatin (AUC 5) 21 Day Cycles - EVENT SERVICES MANAGER* Plan Start Date:07/04/2022 Plan Provider:Lisseth Peters MD Linked Problems Ovarian cancer (HCC) Treatment Medications Current Day (Day 1 , Cycle 7 - Planned for 11/17/2022) CARBOplatin (by AUC:GOG) (PARAPLATIN)CARBOplatin (PARAPLATIN) IVPB in 250 mL (by AUC: GOG)PACLitaxel (TAXOL)PACLItaxel (TAXOL) IVPB in 500 mL CARBOplatin (PARAPLATIN) in sodium chloride 0.9% 250 mL IVPB (BY AUC GOG)PACLitaxeL (TAXOL) 270 mg in sodium chloride 0.9% (PVC-FREE) 500 mL IVPB Past Treatment and Therapy Plans No past plan information found. Lifetime Dose Tracking * Chemical Lifetime Dose Automatic Entry Manual Entr y Fluoro Time 0.2 minutes 0.2 minutes 0 minutes DLP 6,453 mGycm 6,453 mGycm 0 mGycm
--- OUTSIDE RECORDS SUMMARY | 2025-03-19 10:51 | XMS_ITS ---
Author Organization [facility] Address [address] [place] [address] [place] [address] Care Team Providers Care Results Engineer Name Role Phone MichaelMikeDamian Unavailable [phone] MEDICATIONS Medication SIG (Take, Route, Frequency, Duration) Notes Start Date End Date Status Cefuroxime Axetil 250 MG 1 tablet Orally every 12 hrs for 10 days 03/05/2025 03/15/2025 Active Encounters Encounter Location Date Provider Diagnosis [facility] [place] [facility] [address] [place] [address] [place] [address] 03/05/2025 Damian Rodriguez PLAN OF TREATMENT Medication Medication Name Sig Start Date Stop Date Notes Cefuroxime Axetil 250 MG 1 tablet Orally every 12 hrs for 10 days 03/05/2025 03/15/2025 Next Appt Details Provider Name:Damian Rodriguez , 03/22/2025 12:30:00 PM, [address] [place] [address], [place], [address], Progress Notes * KAYLACRISSY JUANDOB:1955 (69 yo F)Acc No.[id number]:03/05/2025 Patient: CRISSY GARZA :1955 Age:69 Y Sex:Female Address:[facility] [address] [place], [address] * Refills Start Cefuroxime Axetil Tablet, 250 MG, Orally, 20 Tablet, 1 tablet, every 12 hrs, 10 days, Refills=0 * * Date:
--- OUTSIDE RECORDS SUMMARY | 2025-03-19 10:51 | XMS_ITS ---
Author Organization [facility] Address [address] [facility] [address] [facility] [address] [place] [address] Care Team Providers Care Healthcare Management Consultant Name Role Phone Damian Rodriguez Unavailable [phone] Encounters Encounter Location Date Provider Diagnosis [place] [facility] [address] [facility] [address] [place] [address] 03/04/2025 Damian Rodriguez Chronic kidney disea se, [...] abdominal hernia without obstruction or gangrene K46.9 ASSESSMENTS Encounter Date Diagnosis Assessment Notes Treatment Notes Treatment Clinical Notes [...] without obstruction or gangrene (ICD-10 - K46.9) PLAN OF TREATMENT Next Appt Details Provider Name:Damian Michael , 03/22/2025 12:30:00 PM, [address] [place] [address], [place], [place], [address], Progress Notes * CRISSY GARZADOB:1955 (69 yo F)Acc No.[id number]:03/04/2025 Patient: CRISSY GARZA Provider: MD RAQUEL, F.A.C.P, F.A.S.N. :1955 Age:69 Y Sex:Female Date:03/04/2025 Address:[facility] [address] [facility] Subjective: * Chief Complaints: Objective: Assessment: * Assessment: 1. Chronic kidney disease, stage 3 unspecified - N18.30 (Primary) 2. Essential hypertension - I10 3. Type 2 diabetes mellitus with hyperglycemia - E11.65 4. Renal osteodystrophy - N25.0 5. Secondary hyperparathyroidism, not elsewhere classified - E21.1 6. Vitamin D deficiency, unspecified - E55.9 7. Viral upper respiratory tract infection - J06.9 8. Hyperlipidemia, unspecified - E78.5 9. Metabolic disorder, unspecified - E88.9 10. Unspecified abdominal hernia without obstruction or gangrene - K46.9 Plan: * Billing Information: * Visit Code: * Procedure Codes: * Sign off status: Pending * Provider: MD RAQUEL, F.A.C.P, F.A.S.N. Date: 03/04/2025
--- OUTSIDE RECORDS SUMMARY | 2025-03-19 10:52 | XMS_ITS ---
Author Organization [facility] Address [address] [place] [address] [place] [address] Care Team Providers Care Opinion Polls Survey Worker Name Role Phone RodriguezMikeDamian Unavailable [phone] MEDICATIONS Medication SIG (Take, Route, Fr equency, Duration) Notes Start Date End Date Status Jardiance 10 MG 1 tablet Orally Once a day for 30 day(s) 03/04/2025 04/03/2025 Active Encounters Encounter Location Date Provider Diagnosis [place] Office [address] [facility] [address] [place] [address] 03/04/2025 Damian Rodriguez PLAN OF TREATMENT Medication Medication Name Sig Start Date Stop Date Notes Jardiance 10 MG 1 tablet Orally Once a day for 30 day(s) 0 03/04/2025 04/03/2025 Next Appt Details Provider Name:Damian Rodriguez , 03/22/2025 12:30:00 PM, [address] [place] [address], [place], [address], Progress Notes * KAYLACRISSY JUANDOB:1955 (69 yo F)Acc No.[id number]:03/04/2025 Patient: CRISSY GARZA :1955 Age:69 Y Sex:Female Address:[facility] [address] [place], [address] * Refills Start Jardiance Tablet, 10 MG, Orally, 30, 1 tablet, Once a day, 30 day(s) * * Date:
--- OUTSIDE RECORDS SUMMARY | 2025-03-19 10:52 | XMS_ITS | Encounter Summary ---
Demographics Address [address] [place] [address] Mobile Phone Home Phone Preferred Language Mongolian Marital Status Single Judaism Affiliation Unknown Race White Ethnic Group Not or Lati no Author Organization [facility] Healthcare Address [address] [place] [address] Care Team Providers Care Emergency Medicine Physician Assistant Name Role Phone Khalif Reynolds MD Primary Care Provide r Chriss Hendrickson MD Unavailable [phone] Zaid Adams MD Unavailable [phone] Nadir Ross MD Unavailable [phone] Encounter Details Date Type Department Care Team (Late Contact Info) Description 09/02/2022 Telephone [facility] [address] [place] [address] Nicolasa Gilbert, RN Social History Tobacco Use Types Packs/Day Years Used Date Smoking Tobacco: Former Cigarettes 1.3 44 1 967 - 2010 Smokeless Tobacco: Never Alcohol Use Standard Drinks/Week Comments No 0 [...] Answer Date Recorded PHQ-2 Score 0 07/05/2019 Comments No Sex and Gender Information Value Date Recorded Sex Assigned at Not on file Legal Sex Female 12:59 PM MACHINE GRINDER Gender Identity Not on file Sexual Orientation Not on file documented as of this encounter Plan of Treatment Upcoming Encounters Date Type Department Care Team (Late Contact Info) Description 05/21/2025 Hospital Encounter [facility] 1 [place] [address] Asad Aldridge MD [address] [place] [address] Scheduled Procedures Name Priority Associated Diagnoses Date/Ti me XI REPAIR INCISIONAL HERNIA - LAPAROSCOPIC ROBOTIC ASSISTED RETRO-RECTUS APPROACH Incarcerated incisional hernia documented as of this encounter Visit Diagnoses Not on filedocumented in this encounter Care Teams Emergency Medicine Physician Assistant Relationship Specialty Start Date End Date Khalif Reynolds MD [address] [facility] [address] [place] [address] PCP - General Internal Medicine 10/28/17 Chriss Hendrickson MD [address] [place] [address] Referring Physician Obstetrics and Gynecology 01/18/20 Zaid Adams MD [address] [place] [address] Referring Physician Gastroenterology 02/14/23 Nadir Ross MD [address] [place] [address] Consulting Physician Cardiovascular Disease 02/14/23 documented as of this encounter
--- OUTSIDE RECORDS SUMMARY | 2025-03-19 10:52 | XMS_ITS | Clinical Summary ---
Author Organization [facility] Address [facility] [place] [address] Care Team Providers Care Screen Printing Inspector Name Role Phone Unavailable Primary Care Provider Unavailabl e Medications pantoprazole 40 MG tablet Take 1 tablet by mouth daily. 11/30/2016 Active tiotropium (SPIRIVA HANDIHALER) [address] into inhaler and inhale daily. 11/30/2016 Active budesonide-formo terol (SYMBICORT) 160-4.5 MCG/ACT inhaler Inhale 2 puffs into the lungs 2 (two) times daily. 11/30/2016 Active ipratropium-albu terol (COMBIVENT RESPIMAT) 20-100 MCG/ACT inhaler 11/30/2016 Act golden albuterol sulfate HFA (VENTOLIN HFA) 108 (90 Base) MCG/ACT inhalerIndicatio ns:Asthma ([facility]),COPD (chronic obstructive pulmonary disease) ([facility]) Inhale 2 puffs into the lungs every 6 (six) hours as needed for Wheezing. 12/01/2018 Active Active Problems Problem Noted Date Diagnosed Date Asthma ([facility]) 05/26/2017 COPD (chronic obstructive pu lmonary disease) ([facility]) 05/26/2017 Social History Tobacco Use Types Packs/Day Years Used Date Smoking Tobacco: Never Assessed Comments Unknown Sex and Gender Information Value Date Recorded Sex Assigned at Not on file Legal Sex Female 4:54 PM CDT Gender Identity Not on file Sexual Orientation Not on file Last Filed Vital Signs Vital Sign Reading Time Taken Comments Blood Pressure 100/60 06/02/2017 3:41 PM CDT Pulse 83 06/02/2017 3:41 PM CDT Temperature - - Respiratory Rate - - Oxygen Saturation - - Inhaled Oxygen Concentration - - Weight 99.8 kg (220 lb) 06/02/2017 3:41 PM CDT Height 162.6 cm (5' 4 ) 06/02/2017 3:41 PM CDT Body Mass Index 37.76 06/02/2017 3:41 PM CDT Plan of Treatment Health Maintenance Due Date Last Done Comments Colorectal Cancer Screening Colonoscopy (10 Years) 1955 Hepatitis C 1974 DTaP, Tdap and Td Vaccines ( 1 - Tdap) 1975 Mammogram Screening 1996 Pneumococcal Vaccine: 50+ Ye ars (1 of 1 - PCV) 2006 Zoster Vaccines (1 of 2) 2006 Dexa Scan (General) 2021 COVID-19 Vaccine ( - 2023-2 5 season) 2024 RSV Immunization or 60+ Years (1 - 1-dose 75+ series) 2031 Meningococcal B Vaccine Aged Out No l onger eligible based on patient's age to complete this topic Meningococcal Vaccine Aged Out No deneen marvin eligible based on patient's age to complete this topic RSV Immunizations Under 20 Months Aged Out No longer eligible based on patient's age to complete this topic
--- OUTSIDE RECORDS SUMMARY | 2025-03-19 10:52 | XMS_ITS | CONTINUITY OF CARE DOCUMENT ---
Author Name morales nielsen Address Unknown Organization [facility] Address [address] [place] [address] Phone [phone] Care Team Providers Care Construction Site Manager Name Role Phone Vandana COLUNGA, Nadir Bird Unavailable [phone] Lorraine COLUNGA, Premal H Unavailable [phone] MARIA A PINTO MD Unavailable PROBLEMS Condition Status Date Provider Notes Chronic kidney disease stage 2 active Deepak Mann Family History of CVA or Stroke: active ? Keyla Banks MD Family History of Hypertension: active ? Fabian Banks MD Other symptoms involving car diovascular system active Boston Banks MD PVD active Boston Banks MD COPD active Boston Banks MD Peripheral Vascular Disease active ? Nadir Ross MD Diabetes, Type 2 active ? Nadir Ross MD Hypertension active ? Nadir Ross MD HTN borderline active Nadir Ross MD Chest pain-type to be determined active Chaim Ross MD Dizziness active Nadir Ross MD Sleep apnea active Nadir Ross MD Shortness of breath active Nadir Ross MD COPD active Nadir Ross MD Dyspnea on exertion active Nadir Ross MD CAD S/P PROMUS PREMIER STENT TO RCA (09/2015) active Nadir Ross MD Mitral regurgitation active Nadir schneider MD Weakness - muscular active Nadir Ross MD Abnormal cardiovascular stress test active Nadir Ross MD Hypothyroidism active Nadir Ross MD Preop cardiovasc. examination active Solitario Ross MD Ovarian cancer active Nadir Ross MD Cardiology examination active Nadir workman MD ENCOUNTERS Date Type Provider Location Encounter Diag nosis - In-person encounter Office Visit Nadir Ross MD [place] [facility] - In-person encounter Office Visit Nadir Ross MD [facility] Cardiology examination - In-person encounter Office Visit Nadir Ross MD [facility] - In-person encounter Office Visit Nadir Ross MD [facility] - In-person encounter Office Visit Nadir Ross MD [facility] - In-person encounter Office Visit Nadir Ross MD [facility] - In-person encounter Office Visit Nadir Ross MD [facility] - In-person encounter Office Visit Nadir Ross MD [facility] - In-person encounter Office Visit Nadir Ross MD [facility] - In-person encounter Office Visit Nadir Ross MD [facility] - In-person encounter Office Visit Nadir Ross MD [facility] Ovarian cancer - In-person encounter Office Visit Nadir Ross MD [facility] - In-person encounter Office Visit Nadir Ross MD [facility] - In-person encounter Office Visit Nadir Ross MD [facility] - In-person encounter Office Visit Nadir Ross MD [facility] - In-person encounter Office Visit Nadir Ross MD [facility] - In-person encounter Office Visit Nadir Ross MD [facility] - In-person encounter Office Visit Nadir Ross MD [facility] - In-person encounter Office Visit Nadir Ross MD [facility] Preop cardiovasc. examination - In-person encounter Office Visit Nadir Ross MD [facility] Hypothyroidism - In-person encounter Office Visit Nadir Ross MD [facility] - In-person encounter Office Visit Chang Olivas MD [facility] - In-person encounter Office Visit Nadir Ross MD [facility] - In-person encounter Office Visit Nadir Ross MD [facility] Abnormal cardiovascular stress test - In-person encounter Office Visit Nadir Ross MD [facility] - In-person encounter Office Visit Nadir Ross MD [facility] - In-person encounter Office Visit Nadir Ross MD [facility] Weakness - muscular - In-person encounter Office Visit Nadir Ross MD [facility] - In-person encounter Office Visit Nadir Ross MD [facility] - In-person encounter Office Visit Nadir Ross MD [facility] - In-person encounter Office Visit Nadir Ross MD [facility] - In-person encounter Office Visit Nadir Ross MD [facility] - In-person encounter Office Visit Nadir Ross MD [facility] Mitral regurgitation - In-person encounter Office Visit Nadir Ross MD [facility] - In-person encounter Office Visit Nadir Ross MD [facility] - In-person encounter Office Visit Nadir Ross MD [facility] - In-person encounter Office Visit Nadir Ross MD [facility] CAD S/P PROMUS PREMIER STENT TO RCA (09/2015) - In-person encounter Office Visit Nadir Ross MD [facility] - In-person encounter Office Visit Nadir Ross MD [facility] Shortness of breathCOPDDyspnea on exertion - In-person encounter Office Visit Nadir Ross MD [facility] DizzinessSleep apnea - In-person encounter Office Visit Nadir Ross MD [facility] - In-person encounter Office Visit Naidr Ross MD [facility] - In-person encounter Office Visit Nadir Ross MD [facility] Chest pain-type to be determined - In-person encounter Office Visit Nadir Ross MD [facility] Peripheral Vascular DiseaseDiabetes, Type 2HypertensionHTN borderline - In-person encounter Office Visit Boston Banks MD [facility] Family History of CVA or Stroke:Family History of Hypertension:Other symptoms involving cardiovascular systemPVDCOPD VITAL SIGNS Date Observation Value Provider Body Mass Index (Ratio) 32.44 kg/m2 Jaskaran vin Umaña pulse rate 76 /min Eve hernandez oxygen saturation, oximetry 90 % Eve Melendez blood pressure, diastolic 79 mm[Hg] Ti aneudy Melendez blood pressure, systolic 127 mm[Hg] Jhoana Melendez weight E&M 189 [lb_av] Eve Byrne s blood pressure, cuff size regular Ti aneudy Melendez height E&M 64 [in_i] Eve Byrne s blood pressure, diastolic 72 mm[Hg] Li nkLogic blood pressure, systolic 100 mm[Hg] Jane kLogic blood pressure, cuff size regular Harjeet Shetty blood pressure, diastolic 72 mm[Hg] Harjeet Shetty blood pressure, systolic 100 mm[Hg] [facility] o[facility] 95 % Bibiana Shetty pulse rate 86 /min Bibiana Shetty height E&M 64 [in_i] Bibiana Shetty height in centimeters E&M 162.56 cm Harjeet Shetty Body Mass Index (Ratio) 36.04 kg/m2 Jessica Ross MD blood pressure, diastolic 73 mm[Hg] Li nkLogic blood pressure, systolic 128 mm[Hg] Jane kLogic blood pressure, cuff size regular Ja rret blood pressure, diastolic 73 mm[Hg] Ja rret blood pressure, systolic 128 mm[Hg] Jar ret pulse rate 96 /min Mark y oxygen saturation, oximetry 94 % Mark respiratory rate E&M 16 /min Mark weight E&M 210 [lb_av] Mark y height E&M 64 [in_i] Mark y Body Mass Index (Ratio) 36.73 kg/m2 Jessica Ross MD blood pressure, diastolic 69 mm[Hg] Li nkLogic blood pressure, systolic 100 mm[Hg] Jane og blood pressure, cuff size regular Ja et blood pressure, diastolic 69 mm[Hg] Ja et blood pressure, systolic 100 mm[Hg] Jar ret pulse rate 84 /min Mark oxygen saturation, oximetry 95 % Mark respiratory rate E&M 16 /min Mark weight E&M 214 [lb_av] Mark y height E&M 64 [in_i] Mark y Body Mass Index (Ratio) 48.57 kg/m2 Jessica Ross MD blood pressure, diastolic 66 mm[Hg] Li nkLogic blood pressure, systolic 98 mm[Hg] Jane kLogic blood pressure, cuff size regular Fa [facility] blood pressure, diastolic 66 mm[Hg] Fa ith Najera blood pressure, systolic 98 mm[Hg] Jak [facility] oxygen saturation, oximetry 93 % Serena Najera respiratory rate E&M 15 /min Serena ndiaye pulse rate 90 /min Serena Najera weight E&M 283 [lb_av] Serena Najera height E&M 64 [in_i] Serena Najera Body Mass Index (Ratio) 35.70 kg/m2 Jessica Ross MD blood pressure, diastolic -1 mm[Hg] Li nkLognandini blood pressure, systolic 108 mm[Hg] Jane Noraognandini blood pressure, diastolic 80 mm[Hg] Kim Santiago blood pressure, systolic 108 mm[Hg] She sarah beth Santiago weight E&M 208 [lb_av] Erin Santiago respiratory rate E&M 20 /min Erin Santiago pulse rate 90 /min Erin Santiago oxygen saturation, oximetry 94 % Erin Santiago blood pressure, cuff size large Sh lubna Santiago height E&M 64 [in_i] Erin Santiago Body Mass Index (Ratio) 34.67 kg/m2 Jessica Ross MD blood pressure, diastolic 76 mm[Hg] Li nkLogic blood pressure, systolic 126 mm[Hg] Jane blood pressure, cuff size regular Ja rret blood pressure, diastolic 76 mm[Hg] Ja rret blood pressure, systolic 126 mm[Hg] Jar ret oxygen saturation, oximetry 94 % Mark respiratory rate E&M 12 /min Mark pulse rate 81 /min Mark er y weight E&M 202 [lb_av] Mark erda y height E&M 64 [in_i] Mark erda y Body Mass Index (Ratio) 33.64 kg/m2 Jessica Ross MD blood pressure, diastolic 78 mm[Hg] St liane Myers blood pressure, systolic 114 mm[Hg] Amber Myers oxygen saturation, oximetry 93 % Zahraa Myers pulse rate 79 /min Zahraa Louis respiratory rate E&M 18 /min Zahraaivan boggs weight E&M 196 [lb_av] Zahraa Louis height E&M 64 [in_i] Zahraa Louis Body Mass Index (Ratio) 32.61 kg/m2 Jessica Ross MD blood pressure, diastolic 68 mm[Hg] Leticia gibsonLognandini blood pressure, systolic 122 mm[Hg] Jane Holliday blood pressure, diastolic 68 mm[Hg] St liane Myers blood pressure, systolic 122 mm[Hg] Amber olguin Louis oxygen saturation, oximetry 95 % Zahraa Louis pulse rate 85 /min Zahraa Louis respiratory rate E&M 18 /min Zahraa boggs weight E&M 190 [lb_av] Zahraa Louis height E&M 64 [in_i] Zahraa Louis Body Mass Index (Ratio) 33.12 kg/m2 Jessica Ross MD blood pressure, cuff size large Ke rri Carline blood pressure, diastolic 67 mm[Hg] Ke rri Carline blood pressure, systolic 109 mm[Hg] Elisabet ri Carline oxygen saturation, oximetry 96 % Mayela Carline respiratory rate E&M 14 /min Mayela G teresaenenfmadelin pulse rate 82 /min Mayela Giancarloueneamira er weight E&M 193 [lb_av] Mayela Gruenenfe lder height E&M 64 [in_i] Mayela Gruenenfe [facility] Body Mass Index (Ratio) 33.64 kg/m2 Billy Salazar blood pressure, diastolic 70 mm[Hg] Li nkLogic blood pressure, systolic 129 mm[Hg] Jane kLogic blood pressure, diastolic 70 mm[Hg] Sa ra Parsons blood pressure, systolic 129 mm[Hg] Mariama a Parsons respiratory rate E&M 17 /min Liz Si ms oxygen saturation, oximetry 95 % Liz Parsons pulse rate 83 /min Liz Parsons weight E&M 196 [lb_av] Liz Parsons blood pressure, cuff size regular Sa ra Parsons height E&M 64 [in_i] Liz Parsons Body Mass Index (Ratio) 40.16 kg/m2 Jessica Ross MD blood pressure, diastolic 61 mm[Hg] Leticia gibsonLogic blood pressure, systolic 120 mm[Hg] Jane kLogic blood pressure, cuff size regular Silvia Reyna blood pressure, diastolic 61 mm[Hg] Silvia Reyna blood pressure, systolic 120 mm[Hg] Ward banegasgraciela Axel oxygen saturation, oximetry 95 % Jaime Reyna respiratory rate E&M 18 /min Stacia Reyna pulse rate 83 /min Jaime franco weight E&M 234 [lb_av] Jaime franco height E&M 64 [in_i] Jaime franco Body Mass Index (Ratio) 39.82 kg/m2 Jessica Ross MD blood pressure, diastolic 71 mm[Hg] Leticia nkLognandini blood pressure, systolic 160 mm[Hg] Jane Melendezognandini blood pressure, diastolic 71 mm[Hg] Ca therine [place] blood pressure, systolic 160 mm[Hg] Cat herine [place] oxygen saturation, oximetry 93 % Sabrina Juancho respiratory rate E&M 16 /min Catheri ne [place] pulse rate 88 /min Sabrina Juancho weight E&M 232 [lb_av] Sabrina [place] blood pressure, cuff size regular Ca therine [place] height E&M 64 [in_i] Sabrina Juancho Body Mass Index (Ratio) 40.16 kg/m2 Jessica Ross MD blood pressure, cuff size large Ke rri Luis Miguelneafuaeldsun blood pressure, diastolic 76 mm[Hg] Ke rri Giancarlouedariuszeldsun blood pressure, systolic 132 mm[Hg] Ker ri Carline oxygen saturation, oximetry 96 % Mayela Carline respiratory rate E&M 16 /min Mayela G teresaeneafuaeldsun pulse rate 84 /min Mayela Luis Miguelnenfe lder weight E&M 234 [lb_av] Mayela Gruenenfe lder height E&M 64 [in_i] Mayela Gruenenfe lder Body Mass Index (Ratio) 40.16 kg/m2 Jessica Ross MD blood pressure, diastolic 60 mm[Hg] Ma ha O'Jaun blood pressure, systolic 120 mm[Hg] Jeana morris O'Jaun oxygen saturation, oximetry 92 % Laine O'Jaun respiratory rate E&M 16 /min Laine O'Jaun pulse rate 90 /min Laine O'Jaun weight E&M 234 [lb_av] Laine O'Jaun height E&M 64 [in_i] Laine O'Jaun Body Mass Index (Ratio) 39.13 kg/m2 Jessica Ross MD blood pressure, cuff size large Ke rri Gruenenfelder blood pressure, diastolic 60 mm[Hg] Ke rri Gruenenfelder blood pressure, systolic 96 mm[Hg] Ker ri Gruenenfelder oxygen saturation, oximetry 93 % Mayela Gruenenfelder respiratory rate E&M 18 /min Mayela G ruenenfelder pulse rate 75 /min Mayela Gruenenfe lder weight E&M 228 [lb_av] Mayela Gruenenfe lder height E&M 64 [in_i] Mayela Gruenenfe lder Body Mass Index (Ratio) 38.79 kg/m2 Jessica Ross MD blood pressure, cuff size large Ke rri Gruenenfelder blood pressure, diastolic 70 mm[Hg] Ke rri Gruenenfelder blood pressure, systolic 130 mm[Hg] Ker ri Gruenenfelder oxygen saturation, oximetry 96 % Mayela Gruenenfelder respiratory rate E&M 16 /min Mayela G ruenenfelder pulse rate 65 /min Mayela Gruenenfe lder weight E&M 226 [lb_av] Mayela Gruenenfe lder height E&M 64 [in_i] Mayela Gruenenfe lder Body Mass Index (Ratio) 39.13 kg/m2 Jessica Ross MD blood pressure, diastolic 69 mm[Hg] Ivan Hutchison blood pressure, systolic 114 mm[Hg] Evelyn peewee Hutchison blood pressure, cuff size regular Cy saroj Hutchison pulse rate 77 /min Tonya sanchez respiratory rate E&M 16 /min Tonya Hutchison oxygen saturation, oximetry 96 % Tonya Hutchison weight E&M 228 [lb_av] Tonya sanchez height E&M 64 [in_i] Tonya sanchez Body Mass Index (Ratio) 39.99 kg/m2 Jessica Ross MD blood pressure, diastolic 81 mm[Hg] Cy saroj Hutchison blood pressure, systolic 129 mm[Hg] Evelyn Hutchison blood pressure, cuff size regular Ivan Hutchison oxygen saturation, oximetry 93 % Tonya Hutchison pulse rate 87 /min Tonya sanchez respiratory rate E&M 18 /min Tonya Hutchison weight E&M 233 [lb_av] Tonya sanchez height E&M 64 [in_i] Tonya sanchez Body Mass Index (Ratio) 39.65 kg/m2 Jessica Ross MD pulse rate 134 /min [facility] weight E&M 231 [lb_av] [facility] height E&M 64 [in_i] [facility] respiratory rate E&M 16 /min [facility] Chanel Body Mass Index (Ratio) 40.16 kg/m2 Jessica Ross MD respiratory rate E&M 16 /min Tonsha Chanel blood pressure, resting Yes Tons mejia Chanel blood pressure, diastolic 84 mm[Hg] To nsha Chanel blood pressure, systolic 111 mm[Hg] Ton sha Chanel oxygen saturation, oximetry 95 % Tonsha Chaenl pulse rate 93 /min Tonsha Chanel weight E&M 234 [lb_av] Tonsha Chanel height E&M 64 [in_i] Tonsha Chanel Body Mass Index (Ratio) 39.13 kg/m2 Justin Olivas MD blood pressure, cuff size regular Cy saroj Hutchison blood pressure, diastolic 70 mm[Hg] Cy saroj Hutchison blood pressure, systolic 114 mm[Hg] Evelyn peewee Hutchison pulse rate 75 /min Tonya sanchez oxygen saturation, oximetry 95 % Tonya Hutchison respiratory rate E&M 16 /min Tonya Hutchison weight E&M 228 [lb_av] Tonya Luevano l height E&M 64 [in_i] Tonya Luevano l Body Mass Index (Ratio) 38.45 kg/m2 Jessica Ross MD blood pressure, diastolic 80 mm[Hg] Alexandr garcia Maurice blood pressure, systolic 120 mm[Hg] Apryl Readby pulse rate 96 /min Mai Maurice oxygen saturation, oximetry 97 % Mai Maurice respiratory rate E&M 18 /min Mai Maurice blood pressure, cuff size regular Kr isadalberto Readby weight E&M 224 [lb_av] Mai Maurice height E&M 64 [in_i] Mai Maurice Body Mass Index (Ratio) 37.76 kg/m2 Jessica Ross MD blood pressure, diastolic 68 mm[Hg] Ki lleen Hartman blood pressure, systolic 122 mm[Hg] Charanjit stover Hartman oxygen saturation, oximetry 96 % Carlton Hartman respiratory rate E&M 16 /min Ouray Hartman pulse rate 86 /min Carlton Hartman weight E&M 220 [lb_av] Ouray Hartman height E&M 64 [in_i] Carlton Hartman Body Mass Index (Ratio) 37.93 kg/m2 Jessica Ross MD blood pressure, cuff size large Cr lyn Acuña blood pressure, diastolic 60 mm[Hg] Cr lyn Domenico blood pressure, systolic 110 mm[Hg] Cry stal Domenico oxygen saturation, oximetry 96 % Nae Acuña respiratory rate E&M 17 /min Nae Acuña pulse rate 98 /min Nae Metzger s weight E&M 221 [lb_av] Nae Metzger s height E&M 64 [in_i] Nae Metzger s Body Mass Index (Ratio) 37.07 kg/m2 Jessica Ross MD blood pressure, cuff size regular Cr lyn Acuña blood pressure, diastolic 65 mm[Hg] Cr lyn Acuña blood pressure, systolic 130 mm[Hg] Cry stalaura Acuña oxygen saturation, oximetry 97 % Nae Acuña respiratory rate E&M 17 /min Nae Acuña pulse rate 90 /min Nae Metzger s weight E&M 216 [lb_av] Nae Metzger s height E&M 64 [in_i] Nae Metzger s Body Mass Index (Ratio) 37.07 kg/m2 Krishna Plurad blood pressure, diastolic 78 mm[Hg] Issac Fowler blood pressure, systolic 133 mm[Hg] Jeana Fowler oxygen saturation, oximetry 93 % Laury Fowler respiratory rate E&M 18 /min Rebel Fowler pulse rate 81 /min Laury milian weight E&M 216 [lb_av] Laury milian height E&M 64 [in_i] Laury milian Body Mass Index (Ratio) 37.66 kg/m2 Jessica Ross MD blood pressure, diastolic 75 mm[Hg] Issac Fowler blood pressure, systolic 132 mm[Hg] Jeana Fowler oxygen saturation, oximetry 96 % Laury Fowler respiratory rate E&M 20 /min Rebel Fowler pulse rate 109 /min Laury milian weight E&M 219.4 [lb_av] Laury bartletton height E&M 64 [in_i] Laury Oviedo nson Body Mass Index (Ratio) 38.62 kg/m2 Krishna Plurad blood pressure, cuff size large Ke rri Gruenenfelder blood pressure, diastolic 80 mm[Hg] Ke rri Gruenenfelder blood pressure, systolic 140 mm[Hg] Ker ri Emnfelder oxygen saturation, oximetry 96 % Mayela Hitesher respiratory rate E&M 20 /min Mayela mahajan pulse rate 90 /min Mayela Grnuhae er weight E&M 225 [lb_av] Mayela Gruenenfe er height E&M 64 [in_i] Mayela Gruenenfe lder Body Mass Index (Ratio) 39.13 kg/m2 Jose Fajardo blood pressure, diastolic 80 mm[Hg] Da kenia Sharla blood pressure, systolic 132 mm[Hg] Dac ia Sharla oxygen saturation, oximetry 93 % Yamileth Sharla respiratory rate E&M 20 /min Yamileth V oss pulse rate 85 /min Yamileth Sharla weight E&M 228 [lb_av] Yamileth Sharla height E&M 64 [in_i] Yamileth Sharla Body Mass Index (Ratio) 40.16 kg/m2 Jessica Ross MD blood pressure, diastolic 76 mm[Hg] Issac Fowler blood pressure, systolic 130 mm[Hg] Jeana Fowler oxygen saturation, oximetry 97 % Laury Fowler respiratory rate E&M 18 /min Rebel Fowler pulse rate 103 /min Laury milian weight E&M 234 [lb_av] Laury milian height E&M 64 [in_i] Laury milian Body Mass Index (Ratio) 39.82 kg/m2 Jessica Ross MD blood pressure, cuff size large Ke rri Giancarlouenedeuce blood pressure, diastolic 84 mm[Hg] Ke rri Giancarlouenenfmadelin blood pressure, systolic 122 mm[Hg] Elisabet ri Carline oxygen saturation, oximetry 97 % Mayela Carline respiratory rate E&M 20 /min Mayela G zaina pulse rate 88 /min Mayela Edwine lder weight E&M 232 [lb_av] Mayela Edwine lder height E&M 64 [in_i] Mayela Edwine lder Body Mass Index (Ratio) 36.73 kg/m2 Jessica Ross MD blood pressure, cuff size regular Ke rri Giancarlouenenfmadelin blood pressure, diastolic 62 mm[Hg] Ke rri Gruenenfmadelin blood pressure, systolic 112 mm[Hg] Ker ri Carline oxygen saturation, oximetry 96 % Mayela Luis Miguelnenfmadelin respiratory rate E&M 16 /min Mayela G teresaenenfelder pulse rate 88 /min Mayela Gruenenfe lder weight E&M 214 [lb_av] Mayela Gruenenfe lder height E&M 64 [in_i] Mayela Gruenenfe lder Body Mass Index (Ratio) 39.65 kg/m2 Jessica Ross MD blood pressure, cuff size regular Ke rri Giancarlonuhamadelin blood pressure, diastolic 75 mm[Hg] Ke rri Edwinmadelin blood pressure, systolic 122 mm[Hg] Elisabet Bolanossherryafuamadelin oxygen saturation, oximetry 95 % Mayela Pinedamadelin respiratory rate E&M 16 /min Mayela G teresaeneafuamadelin pulse rate 100 /min Mayela Quintero er weight E&M 231 [lb_av] Mayela Edwine lder height E&M 64 [in_i] Mayela Edwine rafitaer blood pressure, diastolic 60 mm[Hg] Issac Fowler blood pressure, systolic 114 mm[Hg] Jeana Fowler pulse rate 76 /min Laury milian oxygen saturation, oximetry 98 % Laury Fowler respiratory rate E&M 18 /min Rebel Fowler Body Mass Index (Ratio) 39.23 kg/m2 Lashae Fowler weight E&M 228.6 [lb_av] Laury bales blood pressure, diastolic 70 mm[Hg] Issac Fowler blood pressure, systolic 130 mm[Hg] Jeana Fowler pulse rate 74 /min Laury milian oxygen saturation, oximetry 96 % Laury Fowler respiratory rate E&M 18 /min Rebel Fowler Body Mass Index (Ratio) 37.86 kg/m2 Lashae Fowler weight E&M 220.6 [lb_av] Laury bales blood pressure, diastolic 79 mm[Hg] Issac Fowler blood pressure, systolic 143 mm[Hg] Jeana Fowler pulse rate 83 /min Laury milian oxygen saturation, oximetry 95 % Laury Fowler respiratory rate E&M 16 /min Rebel Fowler Body Mass Index (Ratio) 38.45 kg/m2 Lashae Fowler weight E&M 224 [lb_av] Laury milian blood pressure, diastolic 83 mm[Hg] Issac Fowler blood pressure, systolic 147 mm[Hg] Jeana Fowler pulse rate 61 /min Laury milian oxygen saturation, oximetry 96 % Laury Fowler respiratory rate E&M 16 /min Rebel Fowler Body Mass Index (Ratio) 38.34 kg/m2 Lashae Fowler weight E&M 223.4 [lb_av] Laury bartlettmaria eugenia blood pressure, diastolic 77 mm[Hg] In perry Macedo blood pressure, systolic 134 mm[Hg] Kimberly ellison Macedo pulse rate 82 /min Gaye Macedo oxygen saturation, oximetry 94 % Gaye Macedo respiratory rate E&M 16 /min Gaye Macedo Body Mass Index (Ratio) 36.39 kg/m2 Susan desai Macedo weight E&M 212 [lb_av] Gaye Macedo blood pressure, diastolic 74 mm[Hg] Issac Fowler blood pressure, systolic 128 mm[Hg] Jeana Fowler pulse rate 94 /min Laury Oviedo gregorymaria eugenia oxygen saturation, oximetry 98 % Laury Fowler respiratory rate E&M 18 /min Rebel Fowler Body Mass Index (Ratio) 38.10 kg/m2 Lashae Fowler weight E&M 222 [lb_av] Laury Oviedo gregorymaria eugenia Body Mass Index (Ratio) 37.59 kg/m2 Anea javier Cale blood pressure, diastolic 70 mm[Hg] An reyesris Cale blood pressure, systolic 111 mm[Hg] Ane atris Brown pulse rate 77 /min Aneatris Brown oxygen saturation, oximetry 96 % Aneatris Cale respiratory rate E&M 17 /min Aneatri s Brown weight E&M 219 [lb_av] Aneatris [facility] Body Mass Index (Ratio) 37.93 kg/m2 Anea javier [facility] blood pressure, diastolic 87 mm[Hg] An reyesris [facility] blood pressure, systolic 145 mm[Hg] Ane atris [facility] pulse rate 73 /min Aneatris [facility] oxygen saturation, oximetry 97 % Aneatris [facility] respiratory rate E&M 18 /min Aneatri s [facility] weight E&M 221 [lb_av] Aneatris [facility] Body Mass Index (Ratio) 35.70 kg/m2 Moran i Carline blood pressure, diastolic 60 mm[Hg] Ke rri [facility] plano blood pressure, systolic 112 mm[Hg] Elisabet ri Giancarlouecornelius pulse rate 79 /min Mayela Edwine lder oxygen saturation, oximetry 94 % Mayela Emnfmadelin respiratory rate E&M 16 /min Mayela Shree mooreenedeuce weight E&M 208 [lb_av] Mayela Giancarlouenenfe lder Body Mass Index (Ratio) 36.56 kg/m2 Moran i Giancarlouenenfeldsun blood pressure, diastolic 73 mm[Hg] Ke rri Gruenenfelder blood pressure, systolic 107 mm[Hg] Ker ri Giancarlouenenfelder pulse rate 79 /min Mayela Gruenenfe lder oxygen saturation, oximetry 96 % Mayela Crowley respiratory rate E&M 16 /min Mayela wallssun weight E&M 213 [lb_av] Mayela Quintero rafitaer height E&M 64 [in_i] Mayela Quintero [facility] blood pressure, diastolic 93 mm[Hg] An eatris [facility] blood pressure, systolic 134 mm[Hg] Ane atris [facility] Body Mass Index (Ratio) 39.86 kg/m2 Anea javier [facility] pulse rate 88 /min Aneatris [facility] oxygen saturation, oximetry 95 % Aneatris [facility] respiratory rate E&M 17 /min Aneatri s [facility] weight E&M 211 [lb_av] Aneatris [facility] height E&M 61 [in_i] [facility] Allergy Name Onset Date Reaction Criticality Status DOXYCYCLINE HYCLATE Low Criticality active LEVAQUIN hives hives Low Criticality active SULFA hives hives Low Criticality active RESULTS Date Observation Value Provider Reference Range Interpretation Location 4 alanine aminotransferase (SGPT), serum 25 1/L [facility] 0-32 4 aspartate aminotransferase (SGOT), serum 22 1/L [facility] 0-40 4 alkaline phosphatase, serum 165 1/L [facility] 44-121 High 4 bilirubin, serum, total 0.3 mg/dL [facility] 0.0-1.2 4 albumin/globulin ratio, serum 2.0 [facility] 1.2-2.2 4 globulin, serum 2.2 [facility] 1.5-4.5 4 albumin, serum 4.3 g/dL [facility] 3.8-4.8 4 protein, total, serum 6.5 g/dL [facility] 6.0-8.5 4 calcium, serum 9.5 mg/dL [facility] 8.7-10.3 4 carbon dioxide, venous blood 24 mmol/L [facility] 20-29 4 chloride, serum 99 mmol/L [facility] 96-106 4 potassium, serum 3.7 mmol/L [facility] 3.5-5.2 4 sodium, serum 141 mmol/L [facility] [phone]/10/1 4 urea nitrogen/creatinine ratio, serum 20 [facility] 12-28 4 eGFR if 57 mL/min/{1 .73_m2} [facility] >59 Low 4 eGFR if not 50 mL/min/{1 .73_m2} [facility] >59 Low 4 creatinine, serum 1.16 mg/dL [facility] 0.57-1.00 High 4 urea nitrogen, blood 23 mg/dL [facility] - 4 blood glucose, random 139 mg/dL [facility] 65-99 High 3 calcium, serum 11.1 mg/dL [facility] 8.7-10.3 High 3 carbon dioxide, venous blood 26 mmol/L [facility] - 3 chloride, serum 93 mmol/L [facility] 96-106 Low 3 potassium, serum 4.4 mmol/L [facility] 3.5-5.2 3 sodium, serum 137 mmol/L [facility] 704-300 8779/07/2 3 urea nitrogen/creatinine ratio, serum 26 [facility] - 3 eGFR if 37 mL/min/{1 .73_m2} [facility] >59 Low 3 eGFR if not 32 mL/min/{1 .73_m2} [facility] >59 Low 3 creatinine, serum 1.66 mg/dL [facility] 0.57-1.00 High 3 urea nitrogen, blood 43 mg/dL [facility] 8-27 High 3 blood glucose, random 195 mg/dL [facility] 65-99 High 8 prothrombin time (patient) 9.7 s [facility] 9.1-12.0 8 international normalized ratio (INR) 0.9 [facility] 0.8-1.2 8 lipoprotein, beta, serum, point, quantitative, calculated 45 mg/dL [facility] 0-99 8 very low density lipoproteins 24 mg/dL [facility] 5-40 8 HDL cholesterol, serum 54 mg/dL [facility] >39 8 triglyceride, serum, random 122 mg/dL [facility] 0-149 8 cholesterol, serum 123 mg/dL [facility] [phone] 8 calcium, serum 9.7 mg/dL [facility] 8.7-10.3 8 carbon dioxide, venous blood 21 mmol/L [facility] 20-29 8 chloride, serum 101 mmol/L [facility] 96-106 8 potassium, serum 4.1 mmol/L [facility] 3.5-5.2 8 sodium, serum 141 mmol/L [facility] [phone] 8 urea nitrogen/creatinine ratio, serum 21 [facility] 12-28 8 eGFR if 42 mL/min/{1 .73_m2} [facility] >59 Low 8 eGFR if not 37 mL/min/{1 .73_m2} [facility] >59 Low 8 creatinine, serum 1.51 mg/dL [facility] 0.57-1.00 High 8 urea nitrogen, blood 32 mg/dL [facility] 8-27 High 8 blood glucose, random 118 mg/dL [facility] 65-99 High 8 basophil count, absolute 0.0 x10E3/uL [facility] 0.0-0.2 8 Eosinophil Absolute Count 0.1 X10E3/UL [facility] 0.0-0.4 8 monocyte count, blood, automated 1.3 X10E3/UL [facility] 0.1-0.9 High 8 lymphocyte count, blood, automated 2.8 X10E3/UL [facility] 0.7-3.1 8 Absolute Neutrophils 9.2 X10E3/UL [facility] 1.4-7.0 High 8 basophils as percent of blood leukocytes 0 % [facility] Not Estab. 8 eosinophils as percent of blood leukocytes 1 % [facility] Not Estab. 8 monocytes as percent of blood leukocytes 10 % [facility] Not Estab. 8 lymphocytes as percent of blood leukocytes 21 % [facility] Not Estab. 8 neutrophils as percent of blood leukocytes 68 % [facility] Not Estab. 8 platelet count 360 X10E3/UL [facility] [phone] 8 red blood cell distribution width 14.4 % [facility] 12.3-15.4 8 mean corpuscular hemoglobin concentration, RBC 33.5 G/DL [facility] 31.5-35.7 8 mean corpuscular hemoglobin, RBC 27.4 pg [facility] 26.6-33.0 8 mean corpuscular volume, RBC 82 fL [facility] 79-97 8 hematocrit, blood 37.0 % [facility] 34.0-46.6 8 hemoglobin, blood 12.4 g/dL [facility] 11.1-15.9 8 erythrocyte (RBC) count 4.52 X10E6/UL [facility] 3.77-5.28 8 leukocyte count, blood 13.5 X10E3/UL [facility] 3.4-10.8 High 6 pro brain natriuretic peptide 85 pg/mL [facility] 0-450 6 Estimated Glomerular Filtration Rate (calc) 55 (?) [facility] >59 Low 6 chloride, serum 99 mmol/L [facility] 98-107 6 potassium, serum 4.4 mmol/L [facility] 3.5-5.1 6 sodium, serum 138 mmol/L [facility] 052-825 5150/10/1 6 creatinine, serum 1.1 mg/dL [facility] 0.5-0.9 High 6 carbon dioxide, venous blood 23 mmol/L [facility] 23-31 6 albumin, serum 4.6 g/dL [facility] 3.5-5.2 6 calcium, serum 9.3 mg/dL [facility] 8.6-10.2 6 aspartate aminotransferase (SGOT), serum 12 1/L [facility] 0-32 6 alkaline phosphatase, serum 90 1/L [facility] 40-130 6 alanine aminotransferase (SGPT), serum 25 1/L [facility] 0-33 6 protein, total, serum 6.7 g/dL [facility] 6.6-8.7 6 bilirubin, serum, total 0.2 mg/dL [facility] 0.0-1.2 6 urea nitrogen, blood 27 mg/dL [facility] 8-23 High 6 blood glucose, random 252 mg/dL [facility] 74-99 High 7 very low density lipoproteins 22.8 mg/dL [facility] 5.0 - 40.0 7 LDL/HDL (low-density lipoprotein/high-den sity lipoprotein) ratio 1.9 RATIO [facility] - 7 lipoprotein, beta, serum, point, quantitative, calculated 139.2 (?) [facility] 0.0 - 100.0 High 7 HDL cholesterol, serum 72.0 mg/dL [facility] 45.0 - 65.0 High 7 cholesterol, serum 234.0 mg/dL [facility] 0.0 - 200.0 High 7 triglyceride, serum, fasting 114.0 mg/dL [facility] 0.0 - 150.0 7 urea nitrogen/creatinine ratio, serum 17.8 [facility] - 7 Estimated Glomerular Filtration Rate (calc) 68.1 (?) [facility] 59.0 - 7 chloride, serum 102.2 mmol/L [facility] 98.0 - 107.0 7 potassium, serum 4.5 mmol/L [facility] 3.5 - 5.1 7 sodium, serum 143.0 mmol/L [facility] 136.0 - 145.0 7 creatinine, serum 0.9 mg/dL [facility] 0.5 - 1.0 7 carbon dioxide, venous blood 26.0 mmol/L [facility] 22.0 - 29.0 7 calcium, serum 9.9 mg/dL [facility] 8.6 - 10.2 7 urea nitrogen, blood 16.0 mg/dL [facility] 6.0 - 20.0 7 blood glucose, random 102.0 mg/dL [facility] 74.0 - 99.0 High red blood cell distribution width, size density 52.1 fL [facility] - 7 immature granulocytes, percentage of total cells, blood 0.5 % [facility] nucleated red blood cells as percent of blood leukocytes 0.0 % [facility] - 7 red blood cell (erythrocyte) count, per high power field 0.0 10*3/UL [facility] - 7 eosinophils as percent of blood leukocytes 1.7 % [facility] - 7 neutrophils as percent of blood leukocytes 61.7 % [facility] Absolute Neutrophils 4.8 CELLS/UL [facility] 1.5 - 7.8 7 basophils as percent of blood leukocytes 0.6 % [facility] - 7 Absolute Basophils 0.1 CELLS/UL [facility] 0.0 - 0.2 7 monocytes as percent of blood leukocytes 8.5 % [facility] - 7 Absolute Monocytes 0.7 CELLS/UL [facility] 0.2 - 1.0 7 lymphocytes as percent of blood leukocytes 27.0 % [facility] - 7 Absolute Lymphocytes 2.1 CELLS/UL [facility] 0.9 - 3.9 7 mean platelet volume 10.1 (?) [facility] - 7 platelet count 314.0 THOUSAND/ UL [facility] 100.0 - 400.0 7 mean corpuscular hemoglobin concentration, RBC 29.5 G/DL [facility] 31.0 - 38.0 Low 7 mean corpuscular hemoglobin, RBC 27.0 pg [facility] 25.0 - 35.0 7 mean corpuscular volume, RBC 91.7 fL [facility] 75.0 - 100.0 7 hematocrit, blood 46.1 % [facility] 35.0 - 55.0 7 hemoglobin, blood 13.6 g/dL [facility] 11.5 - 16.5 7 erythrocyte count, whole blood 5.0 MILLION/U L [facility] 3.5 - 5.5 7 prothrombin time (patient) 9.9 s [facility] 9.0 - 11.5 7 international normalized ratio (INR) 0.9 [facility] 0.9 - 1.1 2 very low density lipoproteins 18.8 mg/dL [facility] 5.0 - 40.0 2 LDL/HDL (low-density lipoprotein/high-den sity lipoprotein) ratio 1.2 RATIO [facility] - 2 lipoprotein, beta, serum, point, quantitative, calculated 91.2 (?) [facility] - 2 HDL cholesterol, serum 78.0 mg/dL [facility] 45.0 - 65.0 High 2 cholesterol, serum 188.0 mg/dL [facility] 0.0 - 200.0 2 triglyceride, serum, fasting 94.0 mg/dL [facility] 0.0 - 150.0 2 prothrombin time (patient) 9.6 s [facility] 9.0 - 11.5 2 international normalized ratio (INR) 0.9 [facility] 0.9 - 1.1 2 urea nitrogen/creatinine ratio, serum 19.1 [facility] - 2 Estimated Glomerular Filtration Rate (calc) 54.0 (?) [facility] 59.0 - Low 2 chloride, serum 99.7 mmol/L [facility] 98.0 - 107.0 2 potassium, serum 4.1 mmol/L [facility] 3.5 - 5.1 2 sodium, serum 141.0 mmol/L [facility] 136.0 - 145.0 2 creatinine, serum 1.1 mg/dL [facility] 0.5 - 0.9 High 2 carbon dioxide, venous blood 27.0 mmol/L [facility] 22.0 - 29.0 2 calcium, serum 9.5 mg/dL [facility] 8.6 - 10.2 2 urea nitrogen, blood 21.0 mg/dL [facility] 6.0 - 20.0 High 2 blood glucose, random 97.0 mg/dL [facility] 74.0 - 99.0 HISTORY OF MEDICATION USE Medication Status Instructions Dates Provider Indications [facility] cetirizine 10 mg tablet completed Take 1 tablet by mouth once a day - 12/22 Genevieve Mota NP glimepiride 2 mg tablet completed - 12/22 Genevieve Mota NP pantoprazole 40 mg tablet,delayed release (DR/EC) active TAKE 1 TABLET BY MOUTH EVERY DAY 03/01 Rolanda Madera clopidogrel 75 mg tablet completed TAKE 1 TABLET BY MOUTH EVERY DAY 01/26 - 03/25 Candelario Jane NP aspirin 81 mg tablet,delayed release (DR/EC) active TAKE 1 TABLET BY MOUTH EVERY DAY 01/26 Micheline Quevedo torsemide 100 mg tablet active Take 1/2 tablet twice a day 07/05 Candelario Jane NP Protonix 40 mg tablet,delayed release (DR/EC) completed TAKE ONE TABLET BY MOUTH EVERY DAY 03/03 - 03/01 Patricia Do clopidogrel 75 mg tablet completed TAKE 1 TABLET BY MOUTH EVERY DAY 01/18 - 12/24 Nadir Ross MD lisinopril 2.5 mg tablet active TAKE 1 TABLET BY MOUTH EVERY DAY 01/13 Mark Martinez rosuvastatin 20 mg tablet active TAKE 1 TABLET BY MOUTH DAILY 11/30 Laine Cheung potassium chloride 10 mEq tablet,ER particles/crystals active TAKE 1 TABLET BY MOUTH TWICE DAILY 07/31 Genevieve Mota NP metoprolol tartrate 25 mg tablet active TAKE 1 TABLET BY MOUTH TWICE DAILY 07/14 [facility] cholecalciferol (vitamin D3) 1,250 mcg (50,000 unit) capsule active 1 capsule by mouth once a week 04/24 Mayela Crowley levothyroxine 25 mcg capsule active Take 1 tablet once a day 12/12 Candelario Jane NP Toujeo Max U-300 SoloStar 300 unit/mL (3 mL) insulin pen active inject 6 am and 10 pm daily 11/19 Tonya Hutchison Trulicity 0.75 mg/0.5 mL pen injector active once a week 11/19 Tonya Hutchison gabapentin 300 mg capsule active Take 1 twice a day 11/19 Candelario Jane NP METHYLPREDNISOLONE 4 MG ORAL TABLET completed take as directed 11/20 - 12/12 Tonya Hutchison SPIRIVA HANDIHLR completed INHALE ONE CAPSULE VIA HANDIHALER ONCE DAILY 03/06 - 06/03 Mayela Crowley TRULICITY 0.75 MG/0.5ML SUBCUTANEOUS SOLUTION PEN-INJECTOR completed - 11/20 Tonya Hutchison #2, 30 days supply, Filled 9 torsemide 100 mg tablet completed Take 1 tablet by mouth twice a day - 07/05 Liz Parsons #90, 90 days supply, Filled 9 spironolactone 25 mg tablet active Take 1 tablet by mouth once a day Laine Cheung #90, 90 days supply, Filled 9 aspirin 325 mg tablet completed Take 1 tablet once a day 03/23 - 01/26 Micheline Quevedo allopurinol 300 mg tablet active Take 1 tablet once a day 11/19 Genevieve Mota NP METOLAZONE 2.5 MG ORAL TABLET completed once daily - 03/23 Nadir Ross MD TORSEMIDE 100 MG ORAL TABLET completed 1/2 tab once daily - 06/03 Laury Fowler Crestor 20 mg tablet completed 1 tablet on ce a day 01/06 - 11/30 Nadir Ross MD GNP IRON 142 (45 FE) MG ORAL TABLET EXTENDED RELEASE completed take one tablet daily 01/06 - 06/03 Laury Fowler VITAMIN D3 5000UNIT completed TAKE ONE TABLET BY MOUTH DAILY 03/23 - 12/12 Tonya Hutchison BUMETANIDE 2 MG ORAL TABLET completed 1 tab twice daily - 06/03 Laury Fowler calcitriol 0.25 mcg capsule active 1 tablet twice a day Laury Fowler GABAPENTIN 300 MG ORAL CAPSULE completed ONE TAB twice daily - 06/03 Laury Fowler Spiriva with HandiHaler 18 mcg capsule, w/inhalation device active Inhale 1 capsule once a day 03/23 Laine Linn'Jaun METOLAZONE 2.5 MG ORAL TABLET completed Take one tablet one half hour before taking Bumex Tuesday, Tuesday and Tuesday - 06/03 Laury Fowler Plavix 75 mg tablet completed 1 tablet onc e a day 12/30 - 01/18 Nadir Ross MD metoprolol tartrate 25 mg tablet completed Take 1 tablet by mouth twice a day 05/09 - 07/14 Lavjean Rojas STIOLTO RESPIMAT AEROSOL SOLUTION completed once dialy - 06/03 Mayela Crowley TOPIRAMATE 25 MG ORAL TABLET completed twice daily - 03/23 Nadir Ross MD PRESTIGE TRUE PLUS completed 3 times daily - 06/03 Mayela Crowley Klor-Con M10 10 mEq tablet,ER particles/crystals completed Take 1 twice a day 01/23 - 07/31 Mayela Crowley lisinopril 2.5 mg tablet completed Take 1 tablet by mouth once a day 05/09 - 01/13 Laury Fowler BLANCOSALON PERLES 100 MG ORAL CAPSULE completed take as directed 12/04 - 06/03 Aneatrtaz Madsen PROPYLTHIOURACIL 50 MG ORAL TABLET completed take one pill twice a day 12/04 - 06/03 Mayela Crowley BIAXIN XL 500 MG ORAL TABLET EXTENDED RELEASE 24 HOUR completed take one pill twice aday 12/04 - 06/03 Hilario Madsen TRAMADOL HCL 50 MG ORAL TABLET completed take one pill three times a day 12/04 - 06/03 Laury Fowler TRUDOZA completed twice a day 12/04 - 06/03 Laury Fowler ALBUTEROL SULFATE (5 MG/ML) 0.5% INHALATION NEBULIZATION SOLUTION completed use 4 times a day - 06/03 Laury Fowler Nitrostat 0.4 mg tablet, sublingual active 1 tablet under tongue as needed Nadir Ross MD NYSTATIN CREAM completed use twice a day - 06/03 Laury Fowler ZYRTEC ALLERGY 10 MG ORAL TABLET completed take one pill at betime - 06/03 Laury Fowler HYDROCODONE-ACETAMIN OPHEN TABLET completed as needed - 06/03 Mayela Crowley DALIRESP 500 MCG ORAL TABLET completed take one pill a day - 06/03 Laury Fowler Singulair 10 mg tablet active 1 tablet once a day 03/23 Nadir Ross MD Ventolin HFA 90 mcg/actuation HFA aerosol inhaler active 2 puff every four to six hours 04/07 Mayela Crowley Linzess 290 mcg capsule active as directed Candelario Jane NP Protonix 40 mg tablet,delayed release (DR/EC) completed 1 tablet once a day - 03/03 Laury Fowler BYSTOLIC TABLET completed as directed - 12/30 Gaye Macedo FLONASE SUSPENSION active as directed Laine Cheung Combivent Respimat 20-100 mcg/actuation mist active 2 puff every six hours 03/23 Nadir Ross MD RANITIDINE HCL 150 MG ORAL TABLET completed ONE TAB TWICE DAILY - 03/23 Nadir Ross MD BUSPIRONE HCL TABLET completed as directed - 06/03 Yamileth Sharla LAMISIL TABLET completed as directed - 06/03 Laury Fowler VITAMIN D CAPS completed as directed - 06/03 Mayela Bolanosnedeuce SPIRIVA HANDIHALER CAPSULE completed as directed - 06/03 Laury Fowler Symbicort 160-4.5 mcg/actuation HFA aerosol inhaler active as directed Laine Cheung METFORMIN HCL 500 MG ORAL TABLET completed take one pill three times a day 04/07 - 06/20 Carlton Hartman LEXAPRO TABLET completed 1 tab twice daily - 06/03 Laury Fowler PLAVIX 75 MG ORAL TABLET completed 1 tab daily - 06/03 Aneatris Brown ASPIRIN 325 MG ORAL TABLET completed take one pill a day - 03/23 Nadir Ross MD FUROSEMIDE 40 MG ORAL TABLET completed take one pill twice a day 02/09 - 06/03 Laury Fowler SOCIAL HISTORY Date Observation Value Provider alcohol use no Nadir schneider MD chewing tobacco use Current Nadir Ross MD smoking, year quit 2011 Nadir Ross MD number of years as a smoker 47 a Nadir Ross MD smoking, date started 47 Solitario Ross MD smoking history, tot al pack/day 2 Nadir Ross MD cigarette use yes Ndair tovar MD smoking status Former smoker Nadir kern MD alcohol use no Nadir schneider MD chewing tobacco use Current Nadir Ross MD smoking, year quit 2010 Nadir Ross MD number of years as a smoker 47 a Nadir Ross MD smoking, date started 47 Solitario Ross MD smoking history, tot al pack/day 2 Nadir Ross MD cigarette use yes Nadir tovar MD smoking status Former smoker Nadir kern MD alcohol use no Nadir schneider MD chewing tobacco use Current Nadir Ross MD smoking, year quit 2010 Nadir Ross MD number of years as a smoker 47 a Nadir Ross MD smoking, date started 47 Solitario Ross MD smoking history, tot al pack/day 2 Nadir Ross MD cigarette use yes Nadir tovar MD smoking status Former smoker Nadir kern MD smoking, year quit 2010 Genevieve Hansenr SAL[employer] APPRENTICE number of years as a smoker 47 a Genevieve Hansenr SALES APPRENTICE smoking history, tot al pack/day 2 Genevieve Hansenr SALES APPRENTICE cigarette use yes Genevieve Hilario er SALES APPRENTICE alcohol use no Genevieve Sodle r SALES APPRENTICE smoking status Former smoker Genevieve Saray leeer SALES APPRENTICE social history E&M Patient is a former smoker. s topped september 2011 pt had smoked for 46 yrs S moking History: P atient has never smoked. Nadir Ross MD social history reviewed E&M revi ewed - no changes required Nadir Ross MD social history E&M Patient is a former smoker. s topped september 2011 pt had smoked for 46 yrs Smoking History: Mayo mcintosh has never smoked. Nadir Ross MD social history reviewed E&M revi ewed - no changes required Nadir Ross MD smoking status Never smoker Erin Santiago social history reviewed E&M revi ewed - no changes required Nadir Ross MD social history E&M Patient is a former smoker. s topped september 2011 pt had smoked for 46 yrs Smoking History: P dayna is a former smoker. Candelario Jane NP social history reviewed E&M revi ewed - no changes required Candelario Jane NP chewing tobacco use Current Zahraa Andrea aguayo smoking, year quit 2010 Zahraa Alexis is number of years as a smoker 47 a Zahraa Louis smoking, date started 47 Zahraaivan Meyrs smoking history, tot al pack/day 2-3 ppd Zahraa Louis cigarette use yes Zahraa Louis smoking status Former smoker Zahraaivan Myers social history reviewed E&M revi ewed - no changes required Nadir Ross MD social history E&M Patient is a former smoker. s topped september 2011 pt had smoked for 46 yrs Smoking History: Mayo mcintosh is a former smoker. Nadir Ross MD social history reviewed E&M revi ewed - no changes required Nadir Ross MD chewing tobacco use Current Mayela Gr luz marinaenenfnorbetrer smoking, year quit 2010 Mayela Michelle granados number of years as a smoker 47 a Mayela Carline smoking, date started 47 Mayela Luis Miguelnenfelder smoking history, tot al pack/day 2-3 ppd Mayela Luis Miguelnenfelder cigarette use yes Mayela Edwin yusuf smoking status Former smoker Mayela Strickland nfelder social history reviewed E&M revi ewed - no changes required Nadir Ross MD social history reviewed E&M revi ewed - no changes required Nadir Ross MD social history E&M Patient is a former smoker. s topped september 2011 pt had smoked for 46 yrs Smoking History: P atient is a former smoker. Nadir Ross MD social history reviewed E&M revi ewed - no changes required Nadir Ross MD chewing tobacco use Current Catherin e Juancho smoking, year quit 2010 Sabrina Juancho number of years as a smoker 47 a Sabrina [place] smoking, date started 47 Cather ine Juancho smoking history, tot al pack/day 2-3 ppd Sabrina Juancho cigarette use yes Sabrina [place] smoking status Former smoker Sabrina Ot is social history E&M Patient is a former smoker. s topped september 2011 pt had smoked for 46 yrs Smoking History: P atient is a former smoker. Nadir Ross MD social history reviewed E&M revi ewed - no changes required Nadir Ross MD chewing tobacco use Current Mayela Giancarlo ernst smoking, year quit 2010 Mayela Michelle granados number of years as a smoker 47 a Mayela Hitesher smoking, date started 47 Mayela Hitesher smoking history, tot al pack/day 2-3 ppd Mayela Hitesher cigarette use yes Mayela Edwin yusuf smoking status Former smoker Mayela Mondragonubaldo nfelder social history reviewed E&M revi ewed - no changes required Nadir Ross MD social history E&M Patient is a former smoker. s topped september 2011 pt had smoked for 46 yrs Smoking History: P dayna is a former smoker. Nadir Ross MD chewing tobacco use Current Laine O 'Jaun smoking, year quit 2010 Laine O' Jaun number of years as a smoker 47 a Laine O'Jaun smoking, date started 47 Laine O'Jaun smoking history, tot al pack/day 2-3 ppd Laine O'Jaun cigarette use yes Laine O'Jaun smoking status Former smoker Laine Cabreraa l social history E&M Patient is a former smoker. s topped september 2011 pt had smoked for 46 yrs Smoking History: Mayo mcintosh is a former smoker. Nadir Ross MD social history reviewed E&M revi ewed - no changes required Nadir Ross MD chewing tobacco use Current Mayela Gr luz marinaenenfelder smoking, year quit 2010 Mayela Michelle enkristinafelder number of years as a smoker 47 a Mayela Pinedaelder smoking, date started 47 Mayela Luis Miguelneafuaelder smoking history, tot al pack/day 2-3 ppd Mayela Grjahnenfelder cigarette use yes Mayela Edwin [facility] plano smoking status Former smoker Mayela Bolanossherry caalelder social history E&M Patient is a former smoker. s topped september 2011 pt had smoked for 46 yrs Smoking History: P dayna is a former smoker. Nadir Ross MD social history reviewed E&M revi ewed - no changes required Nadir Ross MD chewing tobacco use Current Mayela Gr uenenfelder smoking, year quit 2010 Mayela Grluz marina enenfelder number of years as a smoker 47 a Mayela Carline smoking, date started 47 Mayela Crowley smoking history, tot al pack/day 2-3 ppd Mayela Crowley cigarette use yes Mayela yusuf smoking status Former smoker Mayela tripathi social history E&M Patient is a former smoker. s topped september 2011 pt had smoked for 46 yrs Smoking History: P atjet is a former smoker. Nadir Ross MD social history reviewed E&M revi ewed - no changes required Nadir Ross MD chewing tobacco use Current Tonya Foster smoking, year quit 2010 Tonya aragon number of years as a smoker 47 a Tonya Foster smoking, date started 47 Evelynclaudia wyatt Hutchison smoking history, tot al pack/day 2-3 ppd Tonya Foster cigarette use yes Tonya hook smoking status Former smoker Tonya egan social history E&M Patient is a former smoker. s topped september 2011 pt had smoked for 46 yrs Smoking History: P dayna is a former smoker. Nadir Ross MD social history reviewed E&M revi ewed - no changes required Nadir Ross MD chewing tobacco use Current Tonya Hutchison smoking, year quit 2010 Tonya aragon number of years as a smoker 47 a Tonya Foster smoking, date started 47 Nayeli schneider Foster smoking history, tot al pack/day 2-3 ppd Tonyawyatt Hutchison cigarette use yes Tonya hook smoking status Former smoker Tonya egan social history E&M Patient is a former smoker. s topped september 2011 pt had smoked for 46 yrs Smoking History: P dayna is a former smoker. Nadir Ross MD social history reviewed E&M revi ewed - no changes required Nadir Ross MD smoking status Former smoker Nadir kern MD chewing tobacco use Current Tonsha M oss smoking, year quit 2010 Tonsha Mo ss number of years as a smoker 47 a Tonsha Chanel smoking, date started 47 Tonsha Chanel smoking history, tot al pack/day 2-3 ppd Tonsha Chanel cigarette use yes Tonsha Chanel social history E&M Patient is a former smoker. s topped september 2011 pt had smoked for 46 yrs Smoking History: P atient is a former smoker. Nadir Ross MD social history reviewed E&M revi ewed - no changes required Nadir Ross MD chewing tobacco use Current Tonsha M oss smoking, year quit 2010 Tonsha Mo ss number of years as a smoker 47 a Tonsha Chanel smoking, date started 47 Tonsha Chanel smoking history, tot al pack/day 2-3 ppd Tonsha Chanel cigarette use yes Tonsha Chanel smoking status Former smoker Tonsha Chanel chewing tobacco use Current Tonya Foster smoking, year quit 2010 Tonya aragon number of years as a smoker 47 a oTnya Hutchison smoking, date started 47 Nayeli Hutchison smoking history, tot al pack/day 2-3 ppd Tonyawyatt Hutchison cigarette use yes Tonya hook smoking status Former smoker Tonya egan social history E&M Patient is a former smoker. s topped september 2011 pt had smoked for 46 yrs Smoking History: P atient is a former smoker. Nadir Ross MD chewing tobacco use Current Mai B usby smoking, year quit 2010 Mai Bu sby number of years as a smoker 47 a Mai Meryl smoking, date started 47 Mai Sheth smoking history, tot al pack/day 2-3 ppd Mai Sheth cigarette use yes Mai Sheth smoking status Former smoker Mai Sheth chewing tobacco use Current Carlton Hartman smoking, year quit 2010 Carlton friedman number of years as a smoker 47 a Carlton Hartman smoking, date started 47 Charles Solomonam smoking history, tot al pack/day 2-3 ppd Carlton Solomonam cigarette use yes Carlton Solomonam smoking status Former smoker Carlton Solomon social history E&M Patient is a former smoker. s topped september 2011 pt had smoked for 46 yrs Smoking History: P atjet is a former smoker. Nadir Ross MD social history reviewed E&M revi ewed - no changes required Nadir Ross MD cigarette use yes Nea Blackman ms smoking status Former smoker Nae [employer] social history E&M Patient is a former smoker. s topped september 2011 pt had smoked for 46 yrs Smoking History: P atjet is a former smoker. Nadir Ross MD social history reviewed E&M revi ewed - no changes required Nadir Ross MD cigarette use yes Nae Blackman ms smoking status Former smoker Nae [employer] social history E&M Patient is a former smoker. s topped september 2011 pt had smoked for 46 yrs Smoking History: P dayna is a former smoker. Nadir Ross MD social history reviewed E&M revi ewed - no changes required Nadir Ross MD alcohol use no Laury milian chewing tobacco use Current Connor Fowler smoking, year quit 2010 Laury Fowler number of years as a smoker 47 a Laury Fowler smoking, date started 47 Mckenzie Fowler smoking history, tot al pack/day 2-3 ppd Laury Fowler cigarette use yes Laury bartletton smoking status Former smoker Laury Fan social history reviewed E&M revi ewed - no changes required Nadir Ross MD alcohol use no Laury jenkinson chewing tobacco use Current Connor Fowler smoking, year quit 2010 Laury Fowler number of years as a smoker 47 a Laury Fowler smoking, date started 47 Mckenzie Fowler smoking history, tot al pack/day 2-3 ppd Laury Fowler cigarette use yes Laury bales smoking status Former smoker Laury Fan social history reviewed E&M revi ewed - no changes required Nadir Ross MD social history E&M Patient is a former smoker. s topped september 2011 pt had smoked for 46 yrs Smoking History: P atient is a former smoker. Nadir Ross MD alcohol use no Mayelajuan luis ellerer chewing tobacco use Current Mayela Mondragon mingoer smoking, year quit 2010 Mayela Michelle granados number of years as a smoker 47 a Mayela Mondragonmingoer smoking, date started 47 Mayela Edwinelder smoking history, tot al pack/day 2-3 ppd Mayela Edwinelder cigarette use yes Mayela yusuf smoking status Former smoker Mayela Mondargonubaldo jacksoner social history E&M Patient is a former smoker. s topped september 2011 pt had smoked for 46 yrs Smoking History: P atient is a former smoker. Nadir Ross MD social history reviewed E&M revi ewed - no changes required Nadir Ross MD alcohol use no Yamileth Sharla chewing tobacco use Current Yamileth Vo ss smoking, year quit 2010 Yamileth Hallie s number of years as a smoker 47 a Yamileth Sharla smoking, date started 47 Yamileth Sharla smoking history, tot al pack/day 2-3 ppd Yamileth Sharla cigarette use yes Yamileth Sharla smoking status Former smoker Yamileth Sharla social history reviewed E&M revi ewed - no changes required Nadir Ross MD social history E&M Patient is a former smoker. s topped september 2011 pt had smoked for 46 yrs Smoking History: P atient is a former smoker. Nadir Ross MD alcohol use no Laury Oviedo nson chewing tobacco use Current Connor Fowler smoking, year quit 2010 Laury Fowler number of years as a smoker 47 a Laury Fowler smoking, date started 47 Mckenzie Fowler smoking history, tot al pack/day 2-3 ppd Laury Fowler cigarette use yes Laury Mares enson smoking status Former smoker Laury Fan number of grandchildren Nadir Ross MD social history E&M Patient is a former smoker. s topped september 2011 pt had smoked for 46 yrs Smoking History: P atient is a former smoker. Nadir Ross MD social history reviewed E&M revi ewed - no changes required Nadir Ross MD alcohol use no Mayela Quintero lder chewing tobacco use Current Mayela Gr mingoer smoking, year quit 2010 Mayela Michelle enkristinafeldsun number of years as a smoker 47 a Mayela Carline smoking, date started 47 Mayela Carline smoking history, tot al pack/day 2-3 ppd Mayela Hitesher cigarette use yes Mayela yusuf smoking status Former smoker Mayela caalelder social history reviewed E&M revi ewed - no changes required Nadir Ross MD alcohol use no Mayela Leon lder chewing tobacco use Current Mayela Giancarlo ernst smoking, year quit 2010 Mayela Martinez enkristinafelder number of years as a smoker 47 a Mayela Proctorer smoking, date started 47 Mayela Crowley smoking history, tot al pack/day 2-3 ppd Mayela Proctorer cigarette use yes Mayela [facility] plano smoking status Former smoker Mayela caalelder alcohol use no Mayela Leon lder chewing tobacco use Current Mayela Giancarlo aguilaer smoking, year quit 2010 Mayela austinfeld number of years as a smoker 47 a Mayela Proctorer smoking, date started 47 Mayela Proctorer smoking history, tot al pack/day 2-3 ppd Mayela Hitesher cigarette use yes Mayela [facility] plano smoking status Former smoker Mayela caalelder social history reviewed E&M revi ewed - no changes required Nadir Ross MD alcohol use no Laury milian chewing tobacco use Current Connor Fowler smoking, year quit 2010 Laury Fowler number of years as a smoker 47 a Laury Fowler smoking, date started 47 Mckenzie Fowler smoking history, tot al pack/day 2-3 ppd Laury Maresenson cigarette use yes Laury Mares enson smoking status Former smoker Laury Fan alcohol use no Laury Oviedo nson chewing tobacco use Current Connor Fowler smoking, year quit 2010 Laury Maresenson number of years as a smoker 47 a Laury Fowler smoking, date started 47 Mckenzie Maresenson smoking history, tot al pack/day 2-3 ppd Laury Maresenson cigarette use yes Laury Mares enson smoking status Former smoker Laury Fan social history reviewed E&M revi dyllan - no changes required Nadir Ross MD alcohol use no Laury Oviedo nson chewing tobacco use Current Connor Fowler smoking, year quit 2010 Laury Fowler number of years as a smoker 47 a Laury Fowler smoking, date started 47 Mckenzie Maresenson smoking history, tot al pack/day 2-3 ppd Laury Maresenson cigarette use yes Laury Mares enson smoking status Former smoker Laury Fan chewing tobacco use 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 alcohol use no Laury Oviedo nson smoking, year quit 2010 Laury Fowler number of years as a smoker 47 a Laury Fowler smoking, date started 47 Mckenzie Maresenson smoking history, tot al pack/day 2-3 ppd Laury Maresenson cigarette use yes Laury Mares enson smoking status Former smoker Laury Fan alcohol use no Gaye Macedo smoking, year quit 2010 Gaye Comer Yeny number of years as a smoker 47 a Gaye Macedo smoking, date started 47 Eduard Macedo smoking history, tot al pack/day 2-3 ppd Gaye Macedo cigarette use yes Gaye Macedo smoking status Former smoker Gaye Blanca nn social history reviewed E&M revi ewed - no changes required Nadir Ross MD alcohol use no Laury Oviedo nson smoking, year quit 2010 Laury Fowler number of years as a smoker 47 a Laury Fowler smoking, date started 47 Mckenzie Fowler smoking history, tot al pack/day 2-3 ppd Laury Fowler cigarette use yes Laury bales smoking status Former smoker Laury Fan social history reviewed E&M revi ewed - no changes required Nadir Ross MD smoking status Former smoker Sammirhondataz camacho smoking status Former smoker Sammiluanne Ruben camacho social history reviewed E&M revi ewed - no changes required Nadir Ross MD alcohol use no Mayela ellerer smoking, date started 47 Mayela Crowley smoking history, tot al pack/day 2-3 ppd Mayela Proctorer smoking, year quit 2010 Mayela granados cigarette use yes Mayela yusuf smoking status Former smoker Mayela jacksoner social history E&M Patient is a former smoker. Smoking History: Mayo mcintosh is a former smoker. stopped september 2011 pt had smoked for 46 yrs Nadir Ross MD social history reviewed E&M revi ewed - no changes required Nadir Ross MD alcohol use no Mayela ellerer smoking, year quit 2010 Mayela granados number of years as a smoker 47 a Mayela Crowley smoking history, tot al pack/day 2 Mayela Carline cigarette use yes Mayela Edwin yusuf smoking status Former smoker Nadir kern MD social history reviewed E&M revi ewed - no changes required Boston Banks MD smoking, date started 1963 Aneatr is [facility] smoking, year quit 2010 Aneatris [facility] smoking history, tot al pack/day 3 Aneatris [facility] cigarette use yes Aneatris [facility] smoking status Former smoker Aneatris [facility] FUNCTIONAL STATUS Date Observation Value Provider HRA, CV Assess/Plan, Angina (inactive) Management Plan continue current therapy Nadir Ross MD HRA, CV Assess/Plan, Angina (inactive) Management Plan continue current therapy Nadir Ross MD HRA, CV Assess/Plan, Angina (inactive) Management Plan continue current therapy Genevieve Mota NP HRA, CV Assess/Plan, Angina (inactive) Management Plan continue current therapy Nadir Ross MD HRA, CV Assess/Plan, Angina (inactive) Management Plan continue current therapy Nadir Ross MD HRA, CV Assess/Plan, Angina (inactive) Management Plan continue current therapy Nadir Ross MD HRA, CV Assess/Plan, Angina (inactive) Management Plan continue current therapy Candelario Jane NP HRA, CV Assess/Plan, Angina (inactive) Management Plan continue current therapy Nadir Ross MD HRA, CV Assess/Plan, Angina (inactive) Management Plan continue current therapy Nadir Ross MD HRA, CV Assess/Plan, Angina (inactive) Management Plan continue current therapy Nadir Ross MD HRA, CV Assess/Plan, Angina (inactive) Management Plan continue current therapy Nadir Ross MD HRA, CV Assess/Plan, Angina (inactive) Management Plan continue current therapy Nadir Ross MD HRA, CV Assess/Plan, Angina (inactive) Management Plan continue current therapy Nadir Ross MD HRA, CV Assess/Plan, Angina (inactive) Management Plan continue current therapy Nadir Ross MD HRA, CV Assess/Plan, Angina (inactive) Management Plan continue current therapy, antianginal therapy Nadir Ross MD HRA, CV Assess/Plan, Angina (inactive) Management Plan continue current therapy Nadir Ross MD HRA, CV Assess/Plan, Angina (inactive) Management Plan continue current therapy Nadir Ross MD HRA, CV Assess/Plan, Angina (inactive) Management Plan continue current therapy Nadir Ross MD HRA, CV Assess/Plan, Angina (inactive) Management Plan continue current therapy Nadir Ross MD HRA, CV Assess/Plan, Angina (inactive) Management Plan continue current therapy Nadir Ross MD HRA, CV Assess/Plan, Angina (inactive) Management Plan continue current therapy Nadir Ross MD HRA, CV Assess/Plan, Angina (inactive) Management Plan continue current therapy Nadir Ross MD HRA, CV Assess/Plan, Angina (inactive) Management Plan continue current therapy Krishna Sorin HRA, CV Assess/Plan, Angina (inactive) Management Plan continue current therapy Nadir Ross MD HRA, CV Assess/Plan, Angina (inactive) Management Plan continue current therapy Krishna Sorin HRA, CV Assess/Plan, Angina (inactive) Management Plan continue current therapy Komal Fajardo HRA, CV Assess/Plan, Angina (inactive) Management Plan continue current therapy, antianginal therapy Nadir Ross MD HRA, CV Assess/Plan, Angina (inactive) Management Plan continue current therapy Nadir Ross MD HRA, CV Assess/Plan, Angina (inactive) Management Plan continue current therapy Nadir Ross MD HRA, CV Assess/Plan, Angina (inactive) Management Plan continue current therapy, refer to Cardiac Rehab Nadir Ross MD FAMILY HISTORY Family Member Condition Full Brother Family History of Co ngestive Heart Failure: Full Brother Family History of Co ronary Artery Disease: Full Brother Family History of Hy pertension: Full Brother Family History of Di abetes: Full Sister Family History of Co ngestive Heart Failure: Full Sister Family History of Co ronary Artery Disease: Full Sister Family History of Di abetes: Full Sister Family History of CV A or Stroke: INSURANCE PROVIDERS Payer name Policy type / Coverage type Rolfe red democrat ID [id number] COMPLETE CARE [id number] (PPO C-SNP) [employer] insurance [employer] [id number] [facility] Medicaid 1 [id number] ADVANCE DIRECTIVES Name Date DISCUSSED - NO DECISION MADE TREATMENT PLAN Date Name Performer [id number],C, d elen fatigue. G et sleep study on CPAP at home to evaluate for adewuate treatment. do on CPAP that she has at home to determine if she is adequately being treated or if she needs to be titrated July 27, 2019 H ad CPAP testing done with home sleep and was normal, suspect that she is adequatley treated. December 14, 2019 The patient is using CPAP on a regular basis. The patient has been benefiting from therapy and should continue use. January 23, 2021 T he patient is using CPAP on a regular basis. The patient has been benefiting from therapy and should continue use. April 24, 2021 T he patient is using CPAP on a regular basis. The patient has been benefiting from therapy and should continue use. September 02, 2023 T he patient is using CPAP on a regular basis. The patient has been benefiting from therapy and should continue use. Nadir Ross MD [id number],C,U tilizes nebulizer. M ay be underlying reason for SOB. S ees pulmonary December 24, 2022 H er SOB has gotten worse although I think it is more related to COPD since it resolves with Ventelon Nadir Ross MD [id number],[place] s corey rodriguez for renal Nadir Ross MD [id number],C,D ocumented BP reading is from patient's home BP readings due to white coat hypertension. BP today: 98/66 P rior BP: 108/-1 (07/08/2023) Labs Reviewed: C reat: 1.16 (08/27/2021) C hol: 123 (05/01/2019) HDL: 54 (05/01/2019) Her updated medication list for this problem includes: Metoprolol Tartrate 25 Mg Tablet (Metoprolol tartrate) ..... Take 1 tablet by mouth twice daily Lisinopril 2.5 Mg Tablet (Lisinopril) ..... Take 1 tablet by mouth every day Torsemide 100 Mg Tablet (Torsemide) ..... Take 1/2 tablet twice a day Aspirin 81 Mg Tablet,delayed Release (dr/ec) (Aspirin) ..... Take 1 tablet by mouth every day Spironolactone 25 Mg Tablet (Spironolactone) ..... Take 1 tablet by mouth once a day Nadir Ross MD [id number],David Lino Dr. for hypothyroidism and diabetes. Check tele for arrhythmia. Nadir Ross MD [id number],david Lino tage IIIA low-grade ovarian cancer, arising from the right ovary. The patient underwent an exam under anesthesia, exploratory laparotomy, t otal abdominal hysterectomy, bilateral salpingo-oophorectomy, omentectomy, along with peritoneal s taging biopsies. Frozen section revealed that the patient had at least a borderline tumor. 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 The patient had a prolonged hospital course secondary to the fact that the patient had developed an ileus. The patient was ultimately d ischarged on 06/08/2022. The patient re-presented to the emergency room on 06/10/2022, with wound d rainage that did not require any intervention. June 25, 2022 P ost op follow up with Dr Cabrera at [facility]. 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 Energy levels good since completing chemo. July 08, 2023 S iteman for ovarian ca Nadir Ross MD [id number],C, N ovember 2021 c urrent cp is completley reproducible and is not related to cardiac issues December 24, 2022 H er SOB has gotten worse although I think it is more related to COPD since it resolves with Ventelon. OKAY FOR HER TO HOLD OFF ON TAKING PLAVIX SINCE SHE IS TAKING CHEMO AND CURRENTLY SHE REMAINS ON ASA 81MG March 25, 2023 S table without angina. On Aspirin. Nadir Ross MD [id number],C, B ilateral subclavian stenosis S/P revascularization. Pulses are intact bialterally. 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 Stent of the LEFT subclavian artery with 8x19 omnilink stent 2018 Direct stenting of the left subclavian 70% instent stenosis reduced to 0% residual with implantation of 8 x 29 OmniLink bare metal stent, balloon expandable bare metal stent Still uses disposable cups and plates April 24, 2021 h ad stent to the LSCA in dec 2020 direct stenting of the left subclavian 70% instent stenosis reduced to 0% residual with implantation of 8 x 29 OmniLink bare metal stent, balloon expandable bare metal sten March 25, 2023 C HECK INGE AND HAVE ULTRASOUND OF THE LCFA DONE A LSO CHECK ARTERIAL ULTRASOUND OF LUE July 08, 2023 C heck US of upper extremities she is dropping coffee cups again September 02, 2023 S he had arterial doppler UE 07/27/23 C ONCLUSIONS: 1 . Triphasic waveforms are seen in the subclavian, brachial, ulnar and radial. 2 . Triphasic waveforms are seen in the subclavian, brachial and radial. Biphasic waveforms are seen in the ulnar. 3 . Wrist Pressures: Right 127mmHg Left 110mmHg N o plans for angio. Suspect neuropathy. REcommended B12 pills 100mcg. Nadir Ross MD [id number],C, M ay be underlying reason for SOB. S ees pulmonary December 24, 2022 H er SOB has gotten worse although I think it is more related to COPD since it resolves with Ventelon Nadir Ross MD [id number],C, B ilateral subclavian stenosis S/P revascularization. Pulses are intact bialterally. 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 Stent of the LEFT subclavian artery with 8x19 omnilink stent 2018 Direct stenting of the left subclavian 70% instent stenosis reduced to 0% residual with implantation of 8 x 29 OmniLink bare metal stent, balloon expandable bare metal stent Still uses disposable cups and plates April 24, 2021 h ad stent to the LSCA in dec 2020 direct stenting of the left subclavian 70% instent stenosis reduced to 0% residual with implantation of 8 x 29 OmniLink bare metal stent, balloon expandable bare metal sten March 25, 2023 C HECK INGE AND HAVE ULTRASOUND OF THE LCFA DONE A LSO CHECK ARTERIAL ULTRASOUND OF LUE July 08, 2023 C heck US of upper extremities she is dropping coffee cups again Nadir Ross MD [id number],C, C ONCLUSIONS: 1 . Normal left ventricular systolic function. Normal left ventricular size. Normal left ventricular wall thickness. There is E to A w ave reversal consistent with impaired LV relaxation. E/E': 6.2 Left ventricular ejection fraction is measured at 60 %. 2 . Normal right ventricular size. Normal right ventricular systolic function. 3 . There is trace physiologic mitral valve regurgitation. 4 . There is trace physiologic aortic valve regurgitation. 5 . There is trace physiologic tricuspid valve regurgitation. IVC is normal in size with normal respiratory response. The RA p ressure is estimated at 5.0 mmHg Estimated peak pulmonary artery systolic pressure is 27.0 mmHg. E lectronically signed by Nadir Ross MD on 09/27/2022 at 5:35 PM December 24, 2022 H er SOB has gotten worse although I think it is more related to COPD since it resolves with Ventelon Nadir Ross MD [id number],C, s tage IIIA low-grade ovarian cancer, arising from the right ovary. The patient underwent an exam under anesthesia, exploratory laparotomy, t otal abdominal hysterectomy, bilateral salpingo-oophorectomy, omentectomy, along with peritoneal s taging biopsies. Frozen section revealed that the patient had at least a borderline tumor. 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 The patient had a prolonged hospital course secondary to the fact that the patient had developed an ileus. The patient was ultimately d ischarged on 06/08/2022. The patient re-presented to the emergency room on 06/10/2022, with wound d rainage that did not require any intervention. June 25, 2022 P ost op follow up with Dr Cabrera at [facility]. 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 Energy levels good since completing chemo. July 08, 2023 S iteman for ovarian ca Nadir Ross MD [id number],C, N ovember 2021 c urrent cp is completley reproducible and is not related to cardiac issues December 24, 2022 H er SOB has gotten worse although I think it is more related to COPD since it resolves with Ventelon. OKAY FOR HER TO HOLD OFF ON TAKING PLAVIX SINCE SHE IS TAKING CHEMO AND CURRENTLY SHE REMAINS ON ASA 81MG March 25, 2023 S table without angina. On Aspirin. Nadir Ross MD [id number],C, F INDINGS: R t Upper Ext: Triphasic waveforms are seen in the subclavian, brachial, ulnar and radial. L t Upper Ext: Triphasic waveforms are seen in the subclavian, brachial, ulnar and radial. Elevated velocities are demonstrated in t he mid subclavian at stent. - C ONCLUSIONS: 1 . Elevated velocities in the left middle subclavian artery consistant with in-stent restenosis (PSV=3.23m/s). 2 . Wrist Pressures: Right 129mmHg Left 113mmHg. LSCA 8 x 19 omnilink. S He had new stenosis in the mid left subclavian that was stented. 8x19 omnilink. June 11, 2020 S he has leg fatigue, may be related to PAD and edema. Check arterial/ venous doppler. September 19, 2020 S uspects that she has developed stenosis in the LSCA. Dropping coffee cups again. Plan for UE angio. June 25, 2022 n o new sxs in the upper ext. March 25, 2023 H aving claudication type symptoms in the legs (L>R) and potential symptoms in the L arm. 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 Hx of subclavian stent and will check u/s LUE. Nadir Ross MD [id number],C, s s [facility] for renal Nadir Ross MD [id number],C,C ONCLUSIONS: 1 . Normal left ventricular systolic function. Normal left ventricular size. Normal left ventricular wall thickness. Normal left v entricular diastolic function. E/E': 12.8 Left ventricular ejection fraction is measured at 60 %. 2 . Normal right ventricular size. Normal right ventricular systolic function. 3 . The tricuspid valve is normal in appearance and function. There is mild tricuspid regurgitation. IVC is normal in size with n ormal respiratory response. The RA pressure is estimated at 5.0 mmHg Estimated peak pulmonary artery systolic pressure is 2 5.0 mmHg. 4 . Normal pericardium with no pericardial or pleural effusion. There is an anterior echo free space consistent with epicardial f at pad. Nadir Ross MD [id number],S, N ovember 2021 c urrent cp is completley reproducible and is not related to cardiac issues December 24, 2022 H er SOB has gotten worse although I think it is more related to COPD since it resolves with Ventelon. OKAY FOR HER TO HOLD OFF ON TAKING PLAVIX SINCE SHE IS TAKING CHEMO AND CURRENTLY SHE REMAINS ON ASA 81MG March 25, 2023 S table without angina. On Aspirin. Nadir Ross MD [id number],C,B lood pressure at goal. Her updated medication list for this problem includes: Torsemide 100 Mg Tablet (Torsemide) ..... Take 1/2 tablet twice a day Aspirin 81 Mg Tablet,delayed Release (dr/ec) (Aspirin) ..... Take 1 tablet by mouth every day Lisinopril 2.5 Mg Tablet (Lisinopril) ..... Take 1 tablet by mouth every day Metoprolol Tartrate 25 Mg Tablet (Metoprolol tartrate) ..... Take 1 tablet by mouth twice daily Spironolactone 25 Mg Tablet (Spironolactone) ..... Take 1 tablet by mouth once a day Candelario Jane NP [id number],C,N ovember 2021 c urrent cp is completley reproducible and is not related to cardiac issues December 24, 2022 H er SOB has gotten worse although I think it is more related to COPD since it resolves with Ventelon. OKAY FOR HER TO HOLD OFF ON TAKING PLAVIX SINCE SHE IS TAKING CHEMO AND CURRENTLY SHE REMAINS ON ASA 81MG March 25, 2023 S table without angina. On Aspirin. Candelario Jane NP [id number],C,s tage IIIA low-grade ovarian cancer, arising from the right ovary. The patient underwent an exam under anesthesia, exploratory laparotomy, t otal abdominal hysterectomy, bilateral salpingo-oophorectomy, omentectomy, along with peritoneal s taging biopsies. Frozen section revealed that the patient had at least a borderline tumor. 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 The patient had a prolonged h ospital course secondary to the fact that the patient had developed an ileus. The patient was ultimately d ischarged on 06/08/2022. The patient re-presented to the emergency room on 06/10/2022, with wound d rainage that did not require any intervention. June 25, 2022 P ost op follow up with Dr Cabrera at [facility]. 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 Energy levels good since completing chemo. Candelario Jane SALES APPRENTICE [id number],C, F INDINGS: R t Upper Ext: Triphasic waveforms are seen in the subclavian, brachial, ulnar and radial. L t Upper Ext: Triphasic waveforms are seen in the subclavian, brachial, ulnar and radial. Elevated velocities are demonstrated in t he mid subclavian at stent. - C ONCLUSIONS: 1 . Elevated velocities in the left middle subclavian artery consistant with in-stent restenosis (PSV=3.23m/s). 2 . Wrist Pressures: Right 129mmHg Left 113mmHg. LSCA 8 x 19 omnilink. S He had new stenosis in the mid left subclavian that was stented. 8x19 omnilink. June 11, 2020 S he has leg fatigue, may be related to PAD and edema. Check arterial/ venous doppler. September 19, 2020 S uspects that she has developed stenosis in the LSCA. Dropping coffee cups again. Plan for UE angio. June 25, 2022 n o new sxs in the upper ext. March 25, 2023 H aving claudication type symptoms in the legs (L>R) and potential symptoms in the L arm. 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 Hx of subclavian stent and will check u/s LUE. Candelario Jane NP [id number],C,B ilateral subclavian stenosis S/P revascularization. Pulses are intact bialterally. 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 Stent of the LEFT subclavian artery with 8x19 omnilink stent 2018 Direct stenting of the left subclavian 70% instent stenosis reduced to 0% residual with implantation of 8 x 29 OmniLink bare metal stent, balloon expandable bare metal stent Still uses disposable cups and plates April 24, 2021 h ad stent to the LSCA in dec 2020 direct stenting of the left subclavian 70% instent stenosis reduced to 0% residual with implantation of 8 x 29 OmniLink bare metal stent, balloon expandable bare metal sten March 25, 2023 C HECK INGE AND HAVE ULTRASOUND OF THE LCFA DONE A LSO CHECK ARTERIAL ULTRASOUND OF CAMMIE Jane 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 Normal left ventricular systolic function. Normal left ventricular size. Normal left ventricular wall thickness. There is E to A w ave reversal consistent with impaired LV relaxation. E/E': 6.2 Left ventricular ejection fraction is measured at 60 %. 2 . Normal right ventricular size. Normal right ventricular systolic function. 3 . There is trace physiologic mitral valve regurgitation. 4 . There is trace physiologic aortic valve regurgitation. 5 . There is trace physiologic tricuspid valve regurgitation. IVC is normal in size with normal respiratory response. The RA p ressure is estimated at 5.0 mmHg Estimated peak pulmonary artery systolic pressure is 27.0 mmHg. E lectronically signed by Nadir Ross MD on 09/27/2022 at 5:35 PM December 24, 2022 H er SOB has gotten worse although I think it is more related to COPD since it resolves with Ventelon Nadir Ross MD [id number],C, M ay be underlying reason for SOB. S ees pulmonary December 24, 2022 H er SOB has gotten worse although I think it is more related to COPD since it resolves with Ventelon Nadir Ross MD [id number],C, L ikely related to obesity. S till sees pulmonary. s ays she uses the inhalers and was feeling sob thinks its related to the mask wears it almost all the time since she is on chemo s he had recent stress done 03/01/22 C ONCLUSIONS: 1 . Normal resting ECG. 2 . Normal walking Regadenoson ECG with no ischemic ST or T changes. Threre is no ECG evidence of myocardial ischemia w ith vasodilator stress and simultaneous low-level exercise. 3 . Normal left ventricle size. 4 . Left Ventricular Ejection Fraction is 63 %. TID: 1.03. 5 . Normal myocardial perfusion imaging with no evidence of ischemia or scar. echo done recnetly showed C ONCLUSIONS: 1 . Technically difficult study, limited views secondary to poor acoustic windows. Interpretation is based on available limited v iews. Normal left ventricular systolic function. Normal left ventricular size. Normal left ventricular wall thickness. There is E t o A wave reversal consistent with impaired LV relaxation. E/E': 6.0 Left ventricular ejection fraction is measured at 60 %. 2 . No significant valvular abnormalities. F ebruary 2022 H er SOB has gotten worse although I think it is more related to COPD since it resolves with Ventelon Nadir Ross MD [id number],C, s tage IIIA low-grade ovarian cancer, arising from the right ovary. The patient underwent an exam under anesthesia, exploratory laparotomy, t otal abdominal hysterectomy, bilateral salpingo-oophorectomy, omentectomy, along with peritoneal s taging biopsies. Frozen section revealed that the patient had at least a borderline tumor. 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 The patient had a prolonged hospital course secondary to the fact that the patient had developed an ileus. The patient was ultimately d ischarged on 06/08/2022. The patient re-presented to the emergency room on 06/10/2022, with wound d rainage that did not require any intervention. June 25, 2022 P ost op follow up with Dr Cabrera at [facility]. 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 OKAY FOR HER TO HOLD OFF ON TAKING PLAVIX SINCE SHE IS TAKING CHEMO AND CURRENTLY SHE REMAINS ON ASA 81MG Nadir Ross MD [id number],S, L ikely related to obesity. S onesimo sees pulmonary. s ays she uses the inhalers and was feeling sob thinks its related to the mask wears it almost all the time since she is on chemo s he had recent stress done 03/01/22 C ONCLUSIONS: 1 . Normal resting ECG. 2 . Normal walking Regadenoson ECG with no ischemic ST or T changes. Threre is no ECG evidence of myocardial ischemia w ith vasodilator stress and simultaneous low-level exercise. 3 . Normal left ventricle size. 4 . Left Ventricular Ejection Fraction is 63 %. TID: 1.03. 5 . Normal myocardial perfusion imaging with no evidence of ischemia or scar. echo done recnetly showed C ONCLUSIONS: 1 . Technically difficult study, limited views secondary to poor acoustic windows. Interpretation is based on available limited v iews. Normal left ventricular systolic function. Normal left ventricular size. Normal left ventricular wall thickness. There is E t o A wave reversal consistent with impaired LV relaxation. E/E': 6.0 Left ventricular ejection fraction is measured at 60 %. 2 . No significant valvular abnormalities. Nadir Ross MD [id number],C, C ONCLUSIONS: 1 . Technically difficult study, limited views secondary to poor acoustic windows. Interpretation is based on available limited v iews. Normal left ventricular systolic function. Normal left ventricular size. Normal left ventricular wall thickness. There is E t o A wave reversal consistent with impaired LV relaxation. E/E': 0.2. Left ventricular ejection fraction is measured at 70 %. 2 . Normal right ventricular size. Normal right ventricular systolic function. 3 . There is trace physiologic aortic valve regurgitation. 4 . Normal appearing tricuspid valve leaflets. There is trace physiologic tricuspid valve regurgitation. IVC is normal in size with n ormal respiratory response. Unable to adequately assess the RVSP. E lectronically Signed By: David Ross MD, [facility] 2 020-06-30 09:31:19 CDT Nadir Ross MD [id number],C, S janie Siddiqi for hypothyroidism and diabetes. Check tele for arrhythmia. Nadir Ross MD [id number],C, s tage IIIA low-grade ovarian cancer, arising from the right ovary. The patient underwent an exam under anesthesia, exploratory laparotomy, t otal abdominal hysterectomy, bilateral salpingo-oophorectomy, omentectomy, along with peritoneal s taging biopsies. Frozen section revealed that the patient had at least a borderline tumor. 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 The patient had a prolonged hospital course secondary to the fact that the patient had developed an ileus. The patient was ultimately d ischarged on 06/08/2022. The patient re-presented to the emergency room on 06/10/2022, with wound d rainage that did not require any intervention. June 25, 2022 P ost op follow up with Dr Cabrera at [facility]. 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 Pulses are intact bialterally. 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 Stent of the LEFT subclavian artery with 8x19 omnilink stent 2018 Direct stenting of the left subclavian 70% instent stenosis reduced to 0% residual with implantation of 8 x 29 OmniLink bare metal stent, balloon expandable bare metal stent Still uses disposable cups and plates April 24, 2021 h ad stent to the LSCA in dec 2020 direct stenting of the left subclavian 70% instent stenosis reduced to 0% residual with implantation of 8 x 29 OmniLink bare metal stent, balloon expandable bare metal sten Nadir Ross MD [id number],C, F INDINGS: R t Upper Ext: Triphasic waveforms are seen in the subclavian, brachial, ulnar and radial. L t Upper Ext: Triphasic waveforms are seen in the subclavian, brachial, ulnar and radial. Elevated velocities are demonstrated in t he mid subclavian at stent. - C ONCLUSIONS: 1 . Elevated velocities in the left middle subclavian artery consistant with in-stent restenosis (PSV=3.23m/s). 2 . Wrist Pressures: Right 129mmHg Left 113mmHg. LSCA 8 x 19 omnilink. S He had new stenosis in the mid left subclavian that was stented. 8x19 omnilink. June 11, 2020 S he has leg fatigue, may be related to PAD and edema. Check arterial/ venous doppler. September 19, 2020 S uspects that she has developed stenosis in the LSCA. Dropping coffee cups again. Plan for UE angio. June 25, 2022 n o new sxs in the upper ext. Nadir Ross MD [id number],C, P rior CAD stent RCA, no new CP Nadir Ross MD [id number],C,s tage IIIA low-grade ovarian cancer, arising from the right ovary. The patient underwent an exam under anesthesia, exploratory laparotomy, t otal abdominal hysterectomy, bilateral salpingo-oophorectomy, omentectomy, along with peritoneal s taging biopsies. Frozen section revealed that the patient had at least a borderline tumor. 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 The patient had a prolonged h ospital course secondary to the fact that the patient had developed an ileus. The patient was ultimately d ischarged on 06/08/2022. The patient re-presented to the emergency room on 06/10/2022, with wound d rainage that did not require any intervention. June 25, 2022 P ost op follow up with Dr Cabrera at [facility]. Currently holding plavix and glimeperide for DM, continues with ASA at present Nadir Ross MD [id number],C, F INDINGS: R t Upper Ext: Triphasic waveforms are seen in the subclavian, brachial, ulnar and radial. L t Upper Ext: Triphasic waveforms are seen in the subclavian, brachial, ulnar and radial. Elevated velocities are demonstrated in t he mid subclavian at stent. - C ONCLUSIONS: 1 . Elevated velocities in the left middle subclavian artery consistant with in-stent restenosis (PSV=3.23m/s). 2 . Wrist Pressures: Right 129mmHg Left 113mmHg. LSCA 8 x 19 omnilink. S He had new stenosis in the mid left subclavian that was stented. 8x19 omnilink. June 11, 2020 S he has leg fatigue, may be related to PAD and edema. Check arterial/ venous doppler. September 19, 2020 S uspects that she has developed stenosis in the LSCA. Dropping coffee cups again. Plan for UE angio. Nadir Ross MD [id number],C, L ikely related to obesity. S till sees pulmonary. Nadir Ross MD [id number],C, C ath 11/01/19 I MPRESSION: 1 . False positive stress. 2 . Patent subclavians B/L. 3 . Elevated SBP and LVDEP. Nadir Ross MD [id number],C,S he used to be on protnix, suspect based on current testing and sx it is not cardiac related. Recommend restarting protonix. 03/01/22 CONCLUSIONS: 1 . Normal resting ECG. 2 . Normal walking Regadenoson ECG with no ischemic ST or T changes. Threre is no ECG evidence of myocardial ischemia w ith vasodilator stress and simultaneous low-level exercise. 3 . Normal left ventricle size. 4 . Left Ventricular Ejection Fraction is 63 %. TID: 1.03. 5 . Normal myocardial perfusion imaging with no evidence of ischemia or scar. - C ONCLUSIONS: 1 . Technically difficult study, limited views secondary to poor acoustic windows. Interpretation is based on available limited v iews. Normal left ventricular systolic function. Normal left ventricular size. Normal left ventricular wall thickness. There is E t o A wave reversal consistent with impaired LV relaxation. E/E': 6.0 Left ventricular ejection fraction is measured at 60 %. 2 . No significant valvular abnormalities. Nadir Ross MD [id number],C,P er PCP H er updated medication list for this problem includes: Lisinopril 2.5 Mg Tablet (Lisinopril) ..... Take 1 tablet by mouth every day Glimepiride 2 Mg Tablet (Glimepiride) ..... Take 1 tablet once a day Trulicity 0.75 Mg/0.5 Ml Pen Injector (Dulaglutide) ..... Once a week Aspirin 325 Mg Tablet (Aspirin) ..... Take 1 tablet once a day Toujeo Max U-300 Solostar 300 Unit/ml (3 Ml) Insulin Pen (Insulin glargine u-300 conc) ..... Inject 6 am and 10 pm daily Nadir Ross MD [id number],S,Check stress nuc Nadir Ross MD [id number],C,L upper ex stent, pulses are equal, back to using foam cups. Will obtain US of L subclavain Nadir Ross MD [id number],S,P rior CAD stent RCA, has intemittent CP, will obtrain nuc stress Nadir Ross MD [id number],C, L ikely related to obesity. S till sees pulmonary. Nadir Ross MD [id number],C, d escribes fatigue. G et sleep study on CPAP at home to evaluate for adewuate treatment. do on CPAP that she has at home to determine if she is adequately being treated or if she needs to be titrated July 27, 2019 H ad CPAP testing done with home sleep and was normal, suspect that she is adequatley treated. December 14, 2019 The patient is using CPAP on a regular basis. The patient has been benefiting from therapy and should continue use. January 23, 2021 T he patient is using CPAP on a regular basis. The patient has been benefiting from therapy and should continue use. April 24, 2021 T he patient is using CPAP on a regular basis. The patient has been benefiting from therapy and should continue use. Nadir Ross MD [id number],[place] C ath 11/01/19 I MPRESSION: 1 . False positive stress. 2 . Patent subclavians B/L. 3 . Elevated SBP and LVDEP. Nadir Ross MD [id number],C, S tays on ASA Plavix Nadir Ross MD [id number],C, B ilateral subclavian stenosis S/P revascularization. Pulses are intact bialterally. Direct stenting of the left subclavian 70% instent stenosis reduced to 0% residual with implantation of 8 x 29 OmniLink bare metal stent, balloon expandable bare metal stent Still uses disposable cups and plates April 24, 2021 h ad stent to the LSCA in dec 2020 will get ultrasound to eval patency Nadir Ross MD [id number],C, H er updated medication list for this problem includes: Lisinopril 2.5 Mg Tablet (Lisinopril) ..... Take 1 tablet by mouth once a day Glimepiride 2 Mg Tablet (Glimepiride) ..... Take 1 tablet once a day Trulicity 0.75 Mg/0.5 Ml Pen Injector (Dulaglutide) ..... Once a week Aspirin 325 Mg Tablet (Aspirin) ..... Take 1 tablet once a day Toujeo Max U-300 Solostar 300 Unit/ml (3 Ml) Insulin Pen (Insulin glargine u-300 conc) ..... Inject 6 am and 10 pm daily Nadir Ross MD [id number],C, C ONCLUSIONS: 1 . Technically difficult study, limited views secondary to poor acoustic windows. Interpretation is based on available limited v iews. Normal left ventricular systolic function. Normal left ventricular size. Normal left ventricular wall thickness. There is E t o A wave reversal consistent with impaired LV relaxation. E/E': 0.2. Left ventricular ejection fraction is measured at 70 %. 2 . Normal right ventricular size. Normal right ventricular systolic function. 3 . There is trace physiologic aortic valve regurgitation. 4 . Normal appearing tricuspid valve leaflets. There is trace physiologic tricuspid valve regurgitation. IVC is normal in size with n ormal respiratory response. Unable to adequately assess the RVSP. E lectronically Signed By: David Ross MD, [facility] 2 020-06-30 09:31:19 CDT Nadir Ross MD [id number],C, A ortogram performed demonstrated RSCA, prior 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 site, with 30% stenosis. LSCA two stents, both w/out significant ISR. Both patent. Nadir Ross MD [id number],C, W ILL GET HEART MONITOR TO EXCLUDE AFIB t 07/2020 Rhythm: Sinus Rhythm T he average heart rate was 81 BPM with a maximum of 104 BPM and a minimum of 57 BPM. N o arrhythmias or ectopy was observed for duration of test. Nadir Ross MD [id number],C,sees IJ rodriguez for renal Nadir Ross MD [id number],S, M ay be underlying reason for SOB. S ees pulmonary Nadir Ross MD [id number],S, L ikely related to obesity. S till sees pulmonary. Nadir Ross MD [id number],C, d escribes fatigue. G et sleep study on CPAP at home to evaluate for adewuate treatment. do on CPAP that she has at home to determine if she is adequately being treated or if she needs to be titrated July 27, 2019 H ad CPAP testing done with home sleep and was normal, suspect that she is adequatley treated. December 14, 2019 The patient is using CPAP on a regular basis. The patient has been benefiting from therapy and should continue use. January 23, 2021 T he patient is using CPAP on a regular basis. The patient has been benefiting from therapy and should continue use. April 24, 2021 T he patient is using CPAP on a regular basis. The patient has been benefiting from therapy and should continue use. Nadir Ross MD [id number],C, B ilateral subclavian stenosis S/P revascularization. Pulses are intact bialterally. Direct stenting of the left subclavian 70% instent stenosis reduced to 0% residual with implantation of 8 x 29 OmniLink bare metal stent, balloon expandable bare metal stent Still uses disposable cups and plates April 24, 2021 h ad stent to the LSCA in dec 2020 will get ultrasound to eval patency Nadir Ross MD Cardiology: s corey rodriguez for renal; avoid iv dye exposure due to known hx of CKD. Nadir Ross MD Cardiology: A BI and B/L upper extremity US reviewed. No plans for angio 12/20/23 CONCLUSIONS: 1 . Left upper extremity biphasic waveforms are seen in the subclavian, brachial, ulnar and radial. Possible stenosis of the mid t o distal subclavian artery with monophasic and biphasic flow. 2 . Normal arterial flow of the right upper extremity. 12/20/23 FINDINGS: R ight Lower Extremity: Triphasic waveforms are seen in the common femoral, proximal femoral, mid femoral and distal femoral. B iphasic waveforms are seen in the profunda femoris, popliteal, anterior tibial and posterior tibial. The INGE is 0.96. L eft Lower Extremity: Biphasic waveforms are seen in the common femoral, profunda femoris, proximal femoral, mid femoral, d istal femoral, popliteal, anterior tibial and posterior tibial. The INGE is 0.87. - C ONCLUSIONS: 1 . Mild arterial disease of the lower extremities bilaterally. Nadir Ross MD Cardiology: N ovember 2021 c urrent cp is completley reproducible and is not related to cardiac issues December 24, 2022 H er SOB has gotten worse although I think it is more related to COPD since it resolves with Ventelon. OKAY FOR HER TO HOLD OFF ON TAKING PLAVIX SINCE SHE IS TAKING CHEMO AND CURRENTLY SHE REMAINS ON ASA 81MG March 25, 2023 S table without angina. On Aspirin. , d ecember 06/2023 n o angina February 27, 2024 N o new angina symptoms August 24, 2024 N o new angina symptoms February 22, 2025 p hansel jackson for evaluation. Nadir Ross MD Cardiology: a t baseline Nadir Ross MD Cardiology: E CHO 03/2023 C ONCLUSIONS: 1 . Normal left ventricular systolic function. Normal left ventricular size. Normal left ventricular wall thickness. Normal left v entricular diastolic function. E/E': 12.8 Left ventricular ejection fraction is measured at 60 %. 2 . Normal right ventricular size. Normal right ventricular systolic function. 3 . The tricuspid valve is normal in appearance and function. There is mild tricuspid regurgitation. IVC is normal in size with n ormal respiratory response. The RA pressure is estimated at 5.0 mmHg Estimated peak pulmonary artery systolic pressure is 2 5.0 mmHg. 4 . Normal pericardium with no pericardial or pleural effusion. There is an anterior echo free space consistent with epicardial f at pad F ebruary 2022 H er SOB has gotten worse although I think it is more related to COPD since it resolves with Ventelon continues with intermittent sob/baig February 27, 2024 C urrently is congested, suspect related to seasonal allergies and COPD rather than heart failure. August 24, 2024 n o new sob at present Nadir Ross MD Cardiology: C ath 11/01/19 I MPRESSION: 1 . False positive stress. 2 . Patent subclavians B/L. 3 . Elevated SBP and LVDEP. February 22, 2025 p reviously had false positive stress 2019; if unchanged will recommend she proceed with surgery for hernia. Nadir Ross MD Cardiology:Macie mcdonough planning on hernia surgey with Soraya. Will arrange for a preop eval: nuclear stress, echo. Robbi has known hx of PAD. No plans for intervention at present. Expect her to be able to come off ASA prior to procedure. Nadir Ross MD Cardiology: s tage IIIA low-grade ovarian cancer, arising from the right ovary. The patient underwent an exam under anesthesia, exploratory laparotomy, t otal abdominal hysterectomy, bilateral salpingo-oophorectomy, omentectomy, along with peritoneal s taging biopsies. Frozen section revealed that the patient had at least a borderline tumor. 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 The patient had a prolonged h ospital course secondary to the fact that the patient had developed an ileus. The patient was ultimately d ischarged on 06/08/2022. The patient re-presented to the emergency room on 06/10/2022, with wound d rainage that did not require any intervention. June 25, 2022 P ost op follow up with Dr Cabrera at [facility]. 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 Energy levels good since completing chemo. & #13;July 08, 2023 S iteman for ovarian ca February 27, 2024 C eric has a hernia, plan for surgical management once she loses weight with TRADE SHOW MANAGER/Onc Nadir Ross MD Cardiology: B ilateral subclavian stenosis S/P revascularization. Pulses are intact bialterally. 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 Stent of the LEFT subclavian artery with 8x19 omnilink stent 2018 Direct stenting of the left subclavian 70% instent stenosis reduced to 0% residual with implantation of 8 x 29 OmniLink bare metal stent, balloon expandable bare metal stent Still uses disposable cups and plates April 24, 2021 h ad stent to the LSCA in dec 2020 direct stenting of the left subclavian 70% instent stenosis reduced to 0% residual with implantation of 8 x 29 OmniLink bare metal stent, balloon expandable bare metal sten March 25, 2023 C HECK INGE AND HAVE ULTRASOUND OF THE LCFA DONE A LSO CHECK ARTERIAL ULTRASOUND OF LUE July 08, 2023 C heck US of upper extremities she is dropping coffee cups again September 02, 2023 S he had arterial doppler UE 07/27/23 C ONCLUSIONS: 1 . Triphasic waveforms are seen in the subclavian, brachial, ulnar and radial. 2 . Triphasic waveforms are seen in the subclavian, brachial and radial. Biphasic waveforms are seen in the ulnar. 3 . Wrist Pressures: Right 127mmHg Left 110mmHg N o plans for angio. Suspect neuropathy. REcommended B12 pills 100mcg. August 24, 2024 O N EXAM SHE HAS EQUAL RADIAL PULSES BILATERALLY. THERE IS NO PLAN TO REPEAT ANGIO THE SX ARE GROSSLY UNCHANGED COMPARED TO PRIOR EVALUATIONS Nadir Ross MD Cardiology: S he used to be on protnix, suspect based on current testing and sx it is not cardiac related. Recommend restarting protonix. 03/01/22 CONCLUSIONS: 1 . Normal resting ECG. 2. Normal walking Regadenoson ECG with no ischemic ST or T changes. Threre is no ECG evidence of myocardial ischemia w ith vasodilator stress and simultaneous low-level exercise. 3 . Normal left ventricle size. 4 . Left Ventricular Ejection Fraction is 63 %. TID: 1.03. 5 . Normal myocardial perfusion imaging with no evidence of ischemia or scar. Echo from 03/14/2023 C ONCLUSIONS: 1 . Normal left ventricular systolic function. Normal left ventricular size. Normal left ventricular wall thickness. Normal left v entricular diastolic function. E/E': 12.8 Left ventricular ejection fraction is measured at 60 %. 2 . Normal right ventricular size. Normal right ventricular systolic function. 3 . The tricuspid valve is normal in appearance and function. There is mild tricuspid regurgitation. IVC is normal in size with n ormal respiratory response. The RA pressure is estimated at 5.0 mmHg Estimated peak pulmonary artery systolic pressure is 2 5.0 mmHg. 4. Normal pericardium with no pericardial or pleural effusion. There is an anterior echo free space consistent with epicardial f at pad. Nadir Ross MD Cardiology:This visi t has been a part of the consistent, comprehensive, and ongoing management of the chronic medical condition(s) listed above for the patient. H er updated medication list for this problem includes: Metoprolol Tartrate 25 Mg Tablet (Metoprolol tartrate) ..... Take 1 tablet by mouth twice daily Lisinopril 2.5 Mg Tablet (Lisinopril) ..... Take 1 tablet by mouth every day Torsemide 100 Mg Tablet (Torsemide) ..... Take 1/2 tablet twice a day Aspirin 81 Mg Tablet,delayed Release (dr/ec) (Aspirin) ..... Take 1 tablet by mouth every day Spironolactone 25 Mg Tablet (Spironolactone) ..... Take 1 tablet by mouth once a day BP today: 100/72 P rior BP: 128/73 (02/27/2024) Labs Reviewed: C reat: 1.16 (08/27/2021) C hol: 123 (05/01/2019) HDL: 54 (05/01/2019) LDL: 45 (05/01/2019) T (05/01/2019) Nadir Ross MD Cardiology: N ovember 2021 c urrent cp is completley reproducible and is not related to cardiac issues December 24, 2022 H er SOB has gotten worse although I think it is more related to COPD since it resolves with Ventelon. OKAY FOR HER TO HOLD OFF ON TAKING PLAVIX SINCE SHE IS TAKING CHEMO AND CURRENTLY SHE REMAINS ON ASA 81MG March 25, 2023 S table without angina. On Aspirin. , d ecember 06/2023 n o angina February 27, 2024 N o new angina symptoms August 24, 2024 N o new angina symptoms Nadir Ross MD Cardiology: E CHO 03/2023 C ONCLUSIONS: 1 . Normal left ventricular systolic function. Normal left ventricular size. Normal left ventricular wall thickness. Normal left v entricular diastolic function. E/E': 12.8 Left ventricular ejection fraction is measured at 60 %. 2 . Normal right ventricular size. Normal right ventricular systolic function. 3 . The tricuspid valve is normal in appearance and function. There is mild tricuspid regurgitation. IVC is normal in size with n ormal respiratory response. The RA pressure is estimated at 5.0 mmHg Estimated peak pulmonary artery systolic pressure is 2 5.0 mmHg. 4 . Normal pericardium with no pericardial or pleural effusion. There is an anterior echo free space consistent with epicardial f at pad F ebruary 2022 H er SOB has gotten worse although I think it is more related to COPD since it resolves with Ventelon continues with intermittent sob/baig February 27, 2024 C urrently is congested, suspect related to seasonal allergies and COPD rather than heart failure. August 24, 2024 n o new sob at present Nadir Ross MD Cardiology:at baseline Nadir Ross MD Cardiology:ECHO CONCLUSIONS: 1 . Normal left ventricular systolic function. Normal left ventricular size. Normal left ventricular wall thickness. Normal left v entricular diastolic function. E/E': 12.8 Left ventricular ejection fraction is measured at 60 %. 2 . Normal right ventricular size. Normal right ventricular systolic function. 3 . The tricuspid valve is normal in appearance and function. There is mild tricuspid regurgitation. IVC is normal in size with n ormal respiratory response. The RA pressure is estimated at 5.0 mmHg Estimated peak pulmonary artery systolic pressure is 2 5.0 mmHg. 4 . Normal pericardium with no pericardial or pleural effusion. There is an anterior echo free space consistent with epicardial f at pad. T his visit has been a part of the consistent, comprehensive, and ongoing management of the chronic medical condition(s) listed above for the patient. Nadir Ross MD Cardiology: s tage IIIA low-grade ovarian cancer, arising from the right ovary. The patient underwent an exam under anesthesia, exploratory laparotomy, t otal abdominal hysterectomy, bilateral salpingo-oophorectomy, omentectomy, along with peritoneal s taging biopsies. Frozen section revealed that the patient had at least a borderline tumor. 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 The patient had a prolonged h ospital course secondary to the fact that the patient had developed an ileus. The patient was ultimately d ischarged on 06/08/2022. The patient re-presented to the emergency room on 06/10/2022, with wound d rainage that did not require any intervention. June 25, 2022 P ost op follow up with Dr Cabrera at [facility]. 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 Energy levels good since completing chemo. & #13;July 08, 2023 S iteman for ovarian ca February 27, 2024 C urrently has a hernia, plan for surgical management once she loses weight with TRADE SHOW MANAGER/Onc Nadir Ross MD Cardiology:INGE and B /L upper extremity US reviewed. No plans for angio 12/20/23 CONCLUSIONS: 1 . Left upper extremity biphasic waveforms are seen in the subclavian, brachial, ulnar and radial. Possible stenosis of the mid t o distal subclavian artery with monophasic and biphasic flow. 2 . Normal arterial flow of the right upper extremity. 12/20/23 FINDINGS: R ight Lower Extremity: Triphasic waveforms are seen in the common femoral, proximal femoral, mid femoral and distal femoral. B iphasic waveforms are seen in the profunda femoris, popliteal, anterior tibial and posterior tibial. The INGE is 0.96. L eft Lower Extremity: Biphasic waveforms are seen in the common femoral, profunda femoris, proximal femoral, mid femoral, d istal femoral, popliteal, anterior tibial and posterior tibial. The INGE is 0.87. - C ONCLUSIONS: 1 . Mild arterial disease of the lower extremities bilaterally. Nadir Ross MD Cardiology: E CHO 03/2023 C ONCLUSIONS: 1 . Normal left ventricular systolic function. Normal left ventricular size. Normal left ventricular wall thickness. Normal left v entricular diastolic function. E/E': 12.8 Left ventricular ejection fraction is measured at 60 %. 2 . Normal right ventricular size. Normal right ventricular systolic function. 3 . The tricuspid valve is normal in appearance and function. There is mild tricuspid regurgitation. IVC is normal in size with n ormal respiratory response. The RA pressure is estimated at 5.0 mmHg Estimated peak pulmonary artery systolic pressure is 2 5.0 mmHg. 4 . Normal pericardium with no pericardial or pleural effusion. There is an anterior echo free space consistent with epicardial f at pad F ebruary 2022 H er SOB has gotten worse although I think it is more related to COPD since it resolves with Ventelon continues with intermittent sob/baig February 27, 2024 C urrently is congested, suspect related to seasonal allergies and COPD rather than heart failure. Nadir Ross MD Cardiology: N ovember 2021 c urrent cp is completley reproducible and is not related to cardiac issues December 24, 2022 H er SOB has gotten worse although I think it is more related to COPD since it resolves with Ventelon. OKAY FOR HER TO HOLD OFF ON TAKING PLAVIX SINCE SHE IS TAKING CHEMO AND CURRENTLY SHE REMAINS ON ASA 81MG March 25, 2023 S table without angina. On Aspirin. , d ecember 06/2023 n o angina February 27, 2024 N o new angina symptoms Nadir Ross MD Cardiology: L ikely related to obesity. S till sees pulmonary. Sees Dr. Jacoby Fields in [place]. Pulmonary Nadir Ross MD Cardiology: s tage IIIA low-grade ovarian cancer, arising from the right ovary. The patient underwent an exam under anesthesia, exploratory laparotomy, t otal abdominal hysterectomy, bilateral salpingo-oophorectomy, omentectomy, along with peritoneal s taging biopsies. Frozen section revealed that the patient had at least a borderline tumor. 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 The patient had a prolonged h ospital course secondary to the fact that the patient had developed an ileus. The patient was ultimately d ischarged on 06/08/2022. The patient re-presented to the emergency room on 06/10/2022, with wound d rainage that did not require any intervention. June 25, 2022 P ost op follow up with Dr Cabrera at [facility]. 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 Energy levels good since completing chemo. & #13;July 08, 2023 S iteman for ovarian ca February 27, 2024 C eric has a hernia, plan for surgical management once she loses weight with TRADE SHOW MANAGER/Onc Nadir Ross MD Cardiology:Bronchi o n exam. Likely related to COPD, allergies. Uses nebulizer at home. Nadir Ross MD Cardiology: F INDINGS: R t Upper Ext: Triphasic waveforms are seen in the subclavian, brachial, ulnar and radial. L t Upper Ext: Triphasic waveforms are seen in the subclavian, brachial, ulnar and radial. Elevated velocities are demonstrated in t he mid subclavian at stent. - C ONCLUSIONS: 1 . Elevated velocities in the left middle subclavian artery consistant with in-stent restenosis (PSV=3.23m/s). 2 . Wrist Pressures: Right 129mmHg Left 113mmHg. LSCA 8 x 19 omnilink. S He had new stenosis in the mid left subclavian that was stented. 8x19 omnilink. & #13;June 11, 2020 S he has leg fatigue, may be related to PAD and edema. Check arterial/ venous doppler. September 19, 2020 S uspects that she has developed stenosis in the LSCA. Dropping coffee cups again. Plan for UE angio. June 25, 2022 n o new sxs in the upper ext. March 25, 2023 H aving claudication type symptoms in the legs (L>R) and potential symptoms in the L arm. 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 Hx of subclavian stent and will check u/s LUE. W ith IVUS interrogation, we were unable to find definitive location of mobile plaque as identified on the surface vascular US in LCFA. This leads to possibility of embolization or dissolution of the ultrasound finding. Would recommend repeat surface US to evaluate October 21, 2023 B ILRTERAL PULSES IN RADIAL ARE EQUAL WILL NOT PROCEED WITH ANIGO Genevieve Mota SALES APPRENTICE Cardiology: C ath 11/01/19 I MPRESSION: 1 . False positive stress. 2 . Patent subclavians B/L. 3 . Elevated SBP and LVDEP. Genevieve Mota NP Cardiology: S janie Siddiqi for hypothyroidism and diabetes. Genevieve Mota NP Cardiology:ECHO 04/02 23 C ONCLUSIONS: 1 . Normal left ventricular systolic function. Normal left ventricular size. Normal left ventricular wall thickness. Normal left v entricular diastolic function. E/E': 12.8 Left ventricular ejection fraction is measured at 60 %. 2 . Normal right ventricular size. Normal right ventricular systolic function. 3 . The tricuspid valve is normal in appearance and function. There is mild tricuspid regurgitation. IVC is normal in size with n ormal respiratory response. The RA pressure is estimated at 5.0 mmHg Estimated peak pulmonary artery systolic pressure is 2 5.0 mmHg. 4 . Normal pericardium with no pericardial or pleural effusion. There is an anterior echo free space consistent with epicardial f at pad F ebruary 2022 H er SOB has gotten worse although I think it is more related to COPD since it resolves with Ventelon continues with intermittent sob/baig Genevieve Mota NP Cardiology:no recurrence Rian Mota NP Cardiology: B P today: 100/69 P rior BP: 98/66 (09/02/2023) Labs Reviewed: C reat: 1.16 (08/27/2021) C hol: 123 (05/01/2019) HDL: 54 (05/01/2019) LDL: 45 (05/01/2019) T (05/01/2019) Her updated medication list for this problem includes: Metoprolol Tartrate 25 Mg Tablet (Metoprolol tartrate) ..... Take 1 tablet by mouth twice daily Lisinopril 2.5 Mg Tablet (Lisinopril) ..... Take 1 tablet by mouth every day Torsemide 100 Mg Tablet (Torsemide) ..... Take 1/2 tablet twice a day Aspirin 81 Mg Tablet,delayed Release (dr/ec) (Aspirin) ..... Take 1 tablet by mouth every day Spironolactone 25 Mg Tablet (Spironolactone) ..... Take 1 tablet by mouth once a day Genevieve Mota NP Cardiology: s corey rodriguez for renal Genevieve Mota NP Cardiology: N ovember 2021 c urrent cp is completley reproducible and is not related to cardiac issues December 24, 2022 H er SOB has gotten worse although I think it is more related to COPD since it resolves with Ventelon. OKAY FOR HER TO HOLD OFF ON TAKING PLAVIX SINCE SHE IS TAKING CHEMO AND CURRENTLY SHE REMAINS ON ASA 81MG March 25, 2023 S table without angina. On Aspirin. , d ecember 06/2023 n o angina Genevieve Mota NP Cardiology: d escribes fatigue. G et sleep study on CPAP at home to evaluate for adewuate treatment. do on CPAP that she has at home to determine if she is adequately being treated or if she needs to be titrated July 27, 2019 H ad CPAP testing done with home sleep and was normal, suspect that she is adequatley treated. December 14, 2019 The patient is using CPAP on a regular basis. The patient has been benefiting from therapy and should continue use. January 23, 2021 T he patient is using CPAP on a regular basis. The patient has been benefiting from therapy and should continue use. April 24, 2021 T he patient is using CPAP on a regular basis. The patient has been benefiting from therapy and should continue use. September 02, 2023 T he patient is using CPAP on a regular basis. The patient has been benefiting from therapy and should continue use. Nadir Ross MD Cardiology:Utilizes nebulizer. M ay be underlying reason for SOB. S ees pulmonary December 24, 2022 H er SOB has gotten worse although I think it is more related to COPD since it resolves with Ventelon Nadir Ross MD Cardiology: s corey rodriguez for renal Nadir Ross MD Cardiology:Documente d BP reading is from patient's home BP readings due to white coat hypertension. BP today: 98/66 P rior BP: 108/-1 (07/08/2023) Labs Reviewed: C reat: 1.16 (08/27/2021) C hol: 123 (05/01/2019) HDL: 54 (05/01/2019) Her updated medication list for this problem includes: Metoprolol Tartrate 25 Mg Tablet (Metoprolol tartrate) ..... Take 1 tablet by mouth twice daily Lisinopril 2.5 Mg Tablet (Lisinopril) ..... Take 1 tablet by mouth every day Torsemide 100 Mg Tablet (Torsemide) ..... Take 1/2 tablet twice a day Aspirin 81 Mg Tablet,delayed Release (dr/ec) (Aspirin) ..... Take 1 tablet by mouth every day Spironolactone 25 Mg Tablet (Spironolactone) ..... Take 1 tablet by mouth once a day Nadir Ross MD Cardiology: S ee Dr. Siddiqi for hypothyroidism and diabetes. Check tele for arrhythmia. Nadir Ross MD Cardiology: s tage IIIA low-grade ovarian cancer, arising from the right ovary. The patient underwent an exam under anesthesia, exploratory laparotomy, t otal abdominal hysterectomy, bilateral salpingo-oophorectomy, omentectomy, along with peritoneal s taging biopsies. Frozen section revealed that the patient had at least a borderline tumor. 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 The patient had a prolonged h ospital course secondary to the fact that the patient had developed an ileus. The patient was ultimately d ischarged on 06/08/2022. The patient re-presented to the emergency room on 06/10/2022, with wound d rainage that did not require any intervention. June 25, 2022 P ost op follow up with Dr Cabrera at [facility]. 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 Energy levels good since completing chemo. July 08, 2023 S iteman for ovarian ca Nadir Ross MD Cardiology: N ovember 2021 c urrent cp is completley reproducible and is not related to cardiac issues December 24, 2022 H er SOB has gotten worse although I think it is more related to COPD since it resolves with Ventelon. OKAY FOR HER TO HOLD OFF ON TAKING PLAVIX SINCE SHE IS TAKING CHEMO AND CURRENTLY SHE REMAINS ON ASA 81MG March 25, 2023 S table without angina. On Aspirin. Nadir Ross MD Cardiology: B ilateral subclavian stenosis S/P revascularization. Pulses are intact bialterally. 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 Stent of the LEFT subclavian artery with 8x19 omnilink stent 2018 Direct stenting of the left subclavian 70% instent stenosis reduced to 0% residual with implantation of 8 x 29 OmniLink bare metal stent, balloon expandable bare metal stent Still uses disposable cups and plates April 24, 2021 h ad stent to the LSCA in dec 2020 direct stenting of the left subclavian 70% instent stenosis reduced to 0% residual with implantation of 8 x 29 OmniLink bare metal stent, balloon expandable bare metal sten March 25, 2023 C HECK INGE AND HAVE ULTRASOUND OF THE LCFA DONE A LSO CHECK ARTERIAL ULTRASOUND OF [facility] July 08, 2023 C heck US of upper extremities she is dropping coffee cups again September 02, 2023 S he had arterial doppler UE 07/27/23 C ONCLUSIONS: 1 . Triphasic waveforms are seen in the subclavian, brachial, ulnar and radial. 2 . Triphasic waveforms are seen in the subclavian, brachial and radial. Biphasic waveforms are seen in the ulnar. 3 . Wrist Pressures: Right 127mmHg Left 110mmHg N o plans for angio. Suspect neuropathy. REcommended B12 pills 100mcg. Nadir Ross MD Cardiology: M ay be underlying reason for SOB. S ees pulmonary December 24, 2022 H er SOB has gotten worse although I think it is more related to COPD since it resolves with Ventelon Nadir Ross MD Cardiology: B ilateral subclavian stenosis S/P revascularization. Pulses are intact bialterally. 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 Stent of the LEFT subclavian artery with 8x19 omnilink stent 2018 Direct stenting of the left subclavian 70% instent stenosis reduced to 0% residual with implantation of 8 x 29 OmniLink bare metal stent, balloon expandable bare metal stent Still uses disposable cups and plates April 24, 2021 h ad stent to the LSCA in dec 2020 direct stenting of the left subclavian 70% instent stenosis reduced to 0% residual with implantation of 8 x 29 OmniLink bare metal stent, balloon expandable bare metal sten March 25, 2023 C HECK INGE AND HAVE ULTRASOUND OF THE LCFA DONE A LSO CHECK ARTERIAL ULTRASOUND OF [facility] July 08, 2023 C heck US of upper extremities she is dropping coffee cups again Nadir Ross MD Cardiology: C ONCLUSIONS: 1 . Normal left ventricular systolic function. Normal left ventricular size. Normal left ventricular wall thickness. There is E to A w ave reversal consistent with impaired LV relaxation. E/E': 6.2 Left ventricular ejection fraction is measured at 60 %. 2 . Normal right ventricular size. Normal right ventricular systolic function. 3 . There is trace physiologic mitral valve regurgitation. 4 . There is trace physiologic aortic valve regurgitation. 5 . There is trace physiologic tricuspid valve regurgitation. IVC is normal in size with normal respiratory response. The RA p ressure is estimated at 5.0 mmHg Estimated peak pulmonary artery systolic pressure is 27.0 mmHg. E lectronically signed by Nadir Ross MD on 09/27/2022 at 5:35 PM F ebruary 2022 H er SOB has gotten worse although I think it is more related to COPD since it resolves with Ventelon Nadir Ross MD Cardiology: s tage IIIA low-grade ovarian cancer, arising from the right ovary. The patient underwent an exam under anesthesia, exploratory laparotomy, t otal abdominal hysterectomy, bilateral salpingo-oophorectomy, omentectomy, along with peritoneal s taging biopsies. Frozen section revealed that the patient had at least a borderline tumor. 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 The patient had a prolonged h ospital course secondary to the fact that the patient had developed an ileus. The patient was ultimately d ischarged on 06/08/2022. The patient re-presented to the emergency room on 06/10/2022, with wound d rainage that did not require any intervention. June 25, 2022 P ost op follow up with Dr Cabrera at [facility]. 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 Energy levels good since completing chemo. July 08, 2023 S iteman for ovarian ca Nadir Ross MD Cardiology: N ovember 2021 c urrent cp is completley reproducible and is not related to cardiac issues December 24, 2022 H er SOB has gotten worse although I think it is more related to COPD since it resolves with Ventelon. OKAY FOR HER TO HOLD OFF ON TAKING PLAVIX SINCE SHE IS TAKING CHEMO AND CURRENTLY SHE REMAINS ON ASA 81MG March 25, 2023 S table without angina. On Aspirin. Nadir Ross MD Cardiology: F INDINGS: R t Upper Ext: Triphasic waveforms are seen in the subclavian, brachial, ulnar and radial. L t Upper Ext: Triphasic waveforms are seen in the subclavian, brachial, ulnar and radial. Elevated velocities are demonstrated in t he mid subclavian at stent. - C ONCLUSIONS: 1 . Elevated velocities in the left middle subclavian artery consistant with in-stent restenosis (PSV=3.23m/s). 2 . Wrist Pressures: Right 129mmHg Left 113mmHg. LSCA 8 x 19 omnilink. S He had new stenosis in the mid left subclavian that was stented. 8x19 omnilink. & #13;June 11, 2020 S he has leg fatigue, may be related to PAD and edema. Check arterial/ venous doppler. September 19, 2020 S uspects that she has developed stenosis in the LSCA. Dropping coffee cups again. Plan for UE angio. June 25, 2022 n o new sxs in the upper ext. March 25, 2023 H aving claudication type symptoms in the legs (L>R) and potential symptoms in the L arm. 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 Hx of subclavian stent and will check u/s LUE. Nadir Ross MD Cardiology: s corey rodriguez for renal Nadir Ross MD Cardiology:CONCLUSIO NS: 1 . Normal left ventricular systolic function. Normal left ventricular size. Normal left ventricular wall thickness. Normal left v entricular diastolic function. E/E': 12.8 Left ventricular ejection fraction is measured at 60 %. 2 . Normal right ventricular size. Normal right ventricular systolic function. 3 . The tricuspid valve is normal in appearance and function. There is mild tricuspid regurgitation. IVC is normal in size with n ormal respiratory response. The RA pressure is estimated at 5.0 mmHg Estimated peak pulmonary artery systolic pressure is 25.0 mmHg. 4 . Normal pericardium with no pericardial or pleural effusion. There is an anterior echo free space consistent with epicardial f at pad. Nadir Ross MD Cardiology: N ovember 2021 c urrent cp is completley reproducible and is not related to cardiac issues December 24, 2022 H er SOB has gotten worse although I think it is more related to COPD since it resolves with Ventelon. OKAY FOR HER TO HOLD OFF ON TAKING PLAVIX SINCE SHE IS TAKING CHEMO AND CURRENTLY SHE REMAINS ON ASA 81MG March 25, 2023 S table without angina. On Aspirin. Nadir Ross MD Cardiology:Blood pre ssure at goal. Her updated medication list for this problem includes: Torsemide 100 Mg Tablet (Torsemide) ..... Take 1/2 tablet twice a day Aspirin 81 Mg Tablet,delayed Release (dr/ec) (Aspirin) ..... Take 1 tablet by mouth every day Lisinopril 2.5 Mg Tablet (Lisinopril) ..... Take 1 tablet by mouth every day Metoprolol Tartrate 25 Mg Tablet (Metoprolol tartrate) ..... Take 1 tablet by mouth twice daily Spironolactone 25 Mg Tablet (Spironolactone) ..... Take 1 tablet by mouth once a day Candelario Jane NP Cardiology:September 24, 2022 c urrent cp is completley reproducible and is not related to cardiac issues December 24, 2022 H er SOB has gotten worse although I think it is more related to COPD since it resolves with Ventelon. OKAY FOR HER TO HOLD OFF ON TAKING PLAVIX SINCE SHE IS TAKING CHEMO AND CURRENTLY SHE REMAINS ON ASA 81MG March 25, 2023 S table without angina. On Aspirin. Candelario Jane NP Cardiology:stage III A low-grade ovarian cancer, arising from the right ovary. The patient underwent an exam under anesthesia, exploratory laparotomy, t otal abdominal hysterectomy, bilateral salpingo-oophorectomy, omentectomy, along with peritoneal s taging biopsies. Frozen section revealed that the patient had at least a borderline tumor. 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 The patient had a prolonged h ospital course secondary to the fact that the patient had developed an ileus. The patient was ultimately d ischarged on 06/08/2022. The patient re-presented to the emergency room on 06/10/2022, with wound drainage that did not require any intervention. June 25, 2022 P ost op follow up with Dr Cabrera at [facility]. 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 Energy levels good since completing chemo. Candelario Jane NP Cardiology: F INDINGS: R t Upper Ext: Triphasic waveforms are seen in the subclavian, brachial, ulnar and radial. L t Upper Ext: Triphasic waveforms are seen in the subclavian, brachial, ulnar and radial. Elevated velocities are demonstrated in t he mid subclavian at stent. - C ONCLUSIONS: 1 . Elevated velocities in the left middle subclavian artery consistant with in-stent restenosis (PSV=3.23m/s). 2 . Wrist Pressures: Right 129mmHg Left 113mmHg. LSCA 8 x 19 omnilink. S He had new stenosis in the mid left subclavian that was stented. 8x19 omnilink. & #13;June 11, 2020 S he has leg fatigue, may be related to PAD and edema. Check arterial/ venous doppler. September 19, 2020 S uspects that she has developed stenosis in the LSCA. Dropping coffee cups again. Plan for UE angio. June 25, 2022 n o new sxs in the upper ext. March 25, 2023 H aving claudication type symptoms in the legs (L>R) and potential symptoms in the L arm. 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 Hx of subclavian stent and will check u/s LUE. Candelario Jane NP Cardiology:Bilateral subclavian stenosis S/P revascularization. Pulses are intact bialterally. 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 Stent of the LEFT subclavian artery with 8x19 omnilink stent 2018 Direct stenting of the left subclavian 70% instent stenosis reduced to 0% residual with implantation of 8 x 29 OmniLink bare metal stent, balloon expandable bare metal stent Still uses disposable cups and plates April 24, 2021 h ad stent to the LSCA in dec 2020 direct stenting of the left subclavian 70% instent stenosis reduced to 0% residual with implantation of 8 x 29 OmniLink bare metal stent, balloon expandable bare metal sten March 25, 2023 C HECK INGE AND HAVE ULTRASOUND OF THE LCFA DONE A LSO CHECK ARTERIAL ULTRASOUND OF CAMMIE Jane NP Cardiology:CONCLUSIO NS: 1 . Normal left ventricular systolic function. Normal left ventricular size. Normal left ventricular wall thickness. There is E to A w ave reversal consistent with impaired LV relaxation. E/E': 6.2 Left ventricular ejection fraction is measured at 60 %. 2 . Normal right ventricular size. Normal right ventricular systolic function. 3 . There is trace physiologic mitral valve regurgitation. 4 . There is trace physiologic aortic valve regurgitation. 5 . There is trace physiologic tricuspid valve regurgitation. IVC is normal in size with normal respiratory response. The RA p ressure is estimated at 5.0 mmHg Estimated peak pulmonary artery systolic pressure is 27.0 mmHg. E lectronically signed by Nadir Ross MD on 09/27/2022 at 5:35 PM & #13;December 24, 2022 H er SOB has gotten worse although I think it is more related to COPD since it resolves with Antolin Ross MD Cardiology: M ay be underlying reason for SOB. S ees pulmonary December 24, 2022 H er SOB has gotten worse although I think it is more related to COPD since it resolves with Antolin Ross MD Cardiology: L ikely related to obesity. S till sees pulmonary. s ays she uses the inhalers and was feeling sob thinks its related to the mask wears it almost all the time since she is on chemo s he had recent stress done 03/01/22 C ONCLUSIONS: 1 . Normal resting ECG. 2 . Normal walking Regadenoson ECG with no ischemic ST or T changes. Threre is no ECG evidence of myocardial ischemia w ith vasodilator stress and simultaneous low-level exercise. 3 . Normal left ventricle size. 4 . Left Ventricular Ejection Fraction is 63 %. TID: 1.03. 5 . Normal myocardial perfusion imaging with no evidence of ischemia or scar. echo done recnetly showed C ONCLUSIONS: 1 . Technically difficult study, limited views secondary to poor acoustic windows. Interpretation is based on available limited v iews. Normal left ventricular systolic function. Normal left ventricular size. Normal left ventricular wall thickness. There is E t o A wave reversal consistent with impaired LV relaxation. E/E': 6.0 Left ventricular ejection fraction is measured at 60 %. 2 . No significant valvular abnormalities. F ebruary 2022 H er SOB has gotten worse although I think it is more related to COPD since it resolves with Ventelon Nadir Ross MD Cardiology: s tage IIIA low-grade ovarian cancer, arising from the right ovary. The patient underwent an exam under anesthesia, exploratory laparotomy, t otal abdominal hysterectomy, bilateral salpingo-oophorectomy, omentectomy, along with peritoneal s taging biopsies. Frozen section revealed that the patient had at least a borderline tumor. 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 The patient had a prolonged h ospital course secondary to the fact that the patient had developed an ileus. The patient was ultimately d ischarged on 06/08/2022. The patient re-presented to the emergency room on 06/10/2022, with wound d rainage that did not require any intervention. June 25, 2022 P ost op follow up with Dr Cabrera at [facility]. 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 OKAY FOR HER TO HOLD OFF ON TAKING PLAVIX SINCE SHE IS TAKING CHEMO AND CURRENTLY SHE REMAINS ON ASA 81MG Nadir Ross MD Cardiology: L ikely related to obesity. S till sees pulmonary. s ays she uses the inhalers and was feeling sob thinks its related to the mask wears it almost all the time since she is on chemo s he had recent stress done 03/01/22 C ONCLUSIONS: 1 . Normal resting ECG. 2 . Normal walking Regadenoson ECG with no ischemic ST or T changes. Threre is no ECG evidence of myocardial ischemia w ith vasodilator stress and simultaneous low-level exercise. 3 . Normal left ventricle size. 4 . Left Ventricular Ejection Fraction is 63 %. TID: 1.03. 5 . Normal myocardial perfusion imaging with no evidence of ischemia or scar. echo done recnetly showed C ONCLUSIONS: 1 . Technically difficult study, limited views secondary to poor acoustic windows. Interpretation is based on available limited v iews. Normal left ventricular systolic function. Normal left ventricular size. Normal left ventricular wall thickness. There is E t o A wave reversal consistent with impaired LV relaxation. E/E': 6.0 Left ventricular ejection fraction is measured at 60 %. 2 . No significant valvular abnormalities. Nadir Ross MD Cardiology: C ONCLUSIONS: 1 . Technically difficult study, limited views secondary to poor acoustic windows. Interpretation is based on available limited v iews. Normal left ventricular systolic function. Normal left ventricular size. Normal left ventricular wall thickness. There is E t o A wave reversal consistent with impaired LV relaxation. E/E': 0.2. Left ventricular ejection fraction is measured at 70 %. 2 . Normal right ventricular size. Normal right ventricular systolic function. 3 . There is trace physiologic aortic valve regurgitation. 4 . Normal appearing tricuspid valve leaflets. There is trace physiologic tricuspid valve regurgitation. IVC is normal in size with n ormal respiratory response. Unable to adequately assess the RVSP. E lectronically Signed By: David Ross MD, [facility] 2 020-06-30 09:31:19 CDT Nadir Ross MD Cardiology: S ee Dr. Siddiqi for hypothyroidism and diabetes. Check tele for arrhythmia. Nadir Ross MD Cardiology: s tage IIIA low-grade ovarian cancer, arising from the right ovary. The patient underwent an exam under anesthesia, exploratory laparotomy, t otal abdominal hysterectomy, bilateral salpingo-oophorectomy, omentectomy, along with peritoneal s taging biopsies. Frozen section revealed that the patient had at least a borderline tumor. 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 The patient had a prolonged h ospital course secondary to the fact that the patient had developed an ileus. The patient was ultimately d ischarged on 06/08/2022. The patient re-presented to the emergency room on 06/10/2022, with wound d rainage that did not require any intervention. June 25, 2022 P ost op follow up with Dr Cabrera at [facility]. 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 Pulses are intact bialterally. 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 Stent of the LEFT subclavian artery with 8x19 omnilink stent 2018 Direct stenting of the left subclavian 70% instent stenosis reduced to 0% residual with implantation of 8 x 29 OmniLink bare metal stent, balloon expandable bare metal stent Still uses disposable cups and plates April 24, 2021 h ad stent to the LSCA in dec 2020 direct stenting of the left subclavian 70% instent stenosis reduced to 0% residual with implantation of 8 x 29 OmniLink bare metal stent, balloon expandable bare metal sten Nadir Ross MD Cardiology: F INDINGS: R t Upper Ext: Triphasic waveforms are seen in the subclavian, brachial, ulnar and radial. L t Upper Ext: Triphasic waveforms are seen in the subclavian, brachial, ulnar and radial. Elevated velocities are demonstrated in t he mid subclavian at stent. - C ONCLUSIONS: 1 . Elevated velocities in the left middle subclavian artery consistant with in-stent restenosis (PSV=3.23m/s). 2 . Wrist Pressures: Right 129mmHg Left 113mmHg. LSCA 8 x 19 omnilink. S He had new stenosis in the mid left subclavian that was stented. 8x19 omnilink. & #13;June 11, 2020 S he has leg fatigue, may be related to PAD and edema. Check arterial/ venous doppler. September 19, 2020 S uspects that she has developed stenosis in the LSCA. Dropping coffee cups again. Plan for UE angio. June 25, 2022 n o new sxs in the upper ext. Nadir Ross MD Cardiology: P rior CAD stent RCA, no new CP Nadir Ross MD Cardiology:stage III A low-grade ovarian cancer, arising from the right ovary. The patient underwent an exam under anesthesia, exploratory laparotomy, t otal abdominal hysterectomy, bilateral salpingo-oophorectomy, omentectomy, along with peritoneal s taging biopsies. Frozen section revealed that the patient had at least a borderline tumor. 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 The patient had a prolonged h ospital course secondary to the fact that the patient had developed an ileus. The patient was ultimately d ischarged on 06/08/2022. The patient re-presented to the emergency room on 06/10/2022, with wound drainage that did not require any intervention. June 25, 2022 P ost op follow up with Dr Cabrera at [facility]. Currently holding plavix and glimeperide for DM, continues with ASA at present Nadir Ross MD Cardiology: F INDINGS: R t Upper Ext: Triphasic waveforms are seen in the subclavian, brachial, ulnar and radial. L t Upper Ext: Triphasic waveforms are seen in the subclavian, brachial, ulnar and radial. Elevated velocities are demonstrated in t he mid subclavian at stent. - C ONCLUSIONS: 1 . Elevated velocities in the left middle subclavian artery consistant with in-stent restenosis (PSV=3.23m/s). 2 . Wrist Pressures: Right 129mmHg Left 113mmHg. LSCA 8 x 19 omnilink. S He had new stenosis in the mid left subclavian that was stented. 8x19 omnilink. & #13;June 11, 2020 S he has leg fatigue, may be related to PAD and edema. Check arterial/ venous doppler. September 19, 2020 S uspects that she has developed stenosis in the LSCA. Dropping coffee cups again. Plan for UE angio. Nadir Ross MD Cardiology: L ikely related to obesity. S till sees pulmonary. Nadir Ross MD Cardiology: C ath 11/01/19 I MPRESSION: 1 . False positive stress. 2 . Patent subclavians B/L. 3 . Elevated SBP and LVDEP. Nadir Ross MD Cardiology:She used to be on protnix, suspect based on current testing and sx it is not cardiac related. Recommend restarting protonix. 03/01/22 CONCLUSIONS: 1 . Normal resting ECG. 2 . Normal walking Regadenoson ECG with no ischemic ST or T changes. Threre is no ECG evidence of myocardial ischemia w ith vasodilator stress and simultaneous low-level exercise. 3 . Normal left ventricle size. 4 . Left Ventricular Ejection Fraction is 63 %. TID: 1.03. 5 . Normal myocardial perfusion imaging with no evidence of ischemia or scar. - C ONCLUSIONS: 1 . Technically difficult study, limited views secondary to poor acoustic windows. Interpretation is based on available limited v iews. Normal left ventricular systolic function. Normal left ventricular size. Normal left ventricular wall thickness. There is E t o A wave reversal consistent with impaired LV relaxation. E/E': 6.0 Left ventricular ejection fraction is measured at 60 %. 2 . No significant valvular abnormalities. Nadir Ross MD Cardiology:Per PCP H er updated medication list for this problem includes: Lisinopril 2.5 Mg Tablet (Lisinopril) ..... Take 1 tablet by mouth every day Glimepiride 2 Mg Tablet (Glimepiride) ..... Take 1 tablet once a day Trulicity 0.75 Mg/0.5 Ml Pen Injector (Dulaglutide) ..... Once a week Aspirin 325 Mg Tablet (Aspirin) ..... Take 1 tablet once a day Toujeo Max U-300 Solostar 300 Unit/ml (3 Ml) Insulin Pen (Insulin glargine u-300 conc) ..... Inject 6 am and 10 pm daily Nadir Ross MD Cardiology:Check stress nuc Jessica Ross MD Cardiology:L upper e x stent, pulses are equal, back to using foam cups. Will obtain US of L subclavain Nadir Ross MD Cardiology:Prior CAD stent RCA, has intemittent CP, will obtrain nuc stress Nadir Ross MD Cardiology: L ikely related to obesity. S onesimo sees pulmonary. Nadir Ross MD Cardiology: d mkribedavid fatigue. G et sleep study on CPAP at home to evaluate for adewuate treatment. do on CPAP that she has at home to determine if she is adequately being treated or if she needs to be titrated July 27, 2019 H ad CPAP testing done with home sleep and was normal, suspect that she is adequatley treated. December 14, 2019 The patient is using CPAP on a regular basis. The patient has been benefiting from therapy and should continue use. January 23, 2021 T he patient is using CPAP on a regular basis. The patient has been benefiting from therapy and should continue use. April 24, 2021 T he patient is using CPAP on a regular basis. The patient has been benefiting from therapy and should continue use. Nadir Ross MD Cardiology: C ath 11/01/19 I MPRESSION: 1 . False positive stress. 2 . Patent subclavians B/L. 3 . Elevated SBP and LVDEP. Nadir Ross MD Cardiology: S shonda on ASA Plavix Nadir Ross MD Cardiology: B ilateral subclavian stenosis S/P revascularization. Pulses are intact bialterally. Direct stenting of the left subclavian 70% instent stenosis reduced to 0% residual with implantation of 8 x 29 OmniLink bare metal stent, balloon expandable bare metal stent Still uses disposable cups and plates April 24, 2021 h ad stent to the LSCA in dec 2020 will get ultrasound to eval patency Nadir Ross MD Cardiology: H er updated medication list for this problem includes: Lisinopril 2.5 Mg Tablet (Lisinopril) ..... Take 1 tablet by mouth once a day Glimepiride 2 Mg Tablet (Glimepiride) ..... Take 1 tablet once a day Trulicity 0.75 Mg/0.5 Ml Pen Injector (Dulaglutide) ..... Once a week Aspirin 325 Mg Tablet (Aspirin) ..... Take 1 tablet once a day Toujeo Max U-300 Solostar 300 Unit/ml (3 Ml) Insulin Pen (Insulin glargine u-300 conc) ..... Inject 6 am and 10 pm daily Nadir Ross MD Cardiology: C ONCLUSIONS: 1 . Technically difficult study, limited views secondary to poor acoustic windows. Interpretation is based on available limited v iews. Normal left ventricular systolic function. Normal left ventricular size. Normal left ventricular wall thickness. There is E t o A wave reversal consistent with impaired LV relaxation. E/E': 0.2. Left ventricular ejection fraction is measured at 70 %. 2 . Normal right ventricular size. Normal right ventricular systolic function. 3 . There is trace physiologic aortic valve regurgitation. 4 . Normal appearing tricuspid valve leaflets. There is trace physiologic tricuspid valve regurgitation. IVC is normal in size with n ormal respiratory response. Unable to adequately assess the RVSP. E lectronically Signed By: David Ross MD, [facility] 2 020-06-30 09:31:19 CDT Nadir Ross MD Cardiology: A ortogram performed demonstrated RSCA, prior 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 site, with 30% stenosis. LSCA two stents, both w/out significant ISR. Both patent. Nadir Ross MD Cardiology follow up : W ILL GET HEART MONITOR TO EXCLUDE AFIB t jaylen 07/2020 Rhythm: Sinus Rhythm T he average heart rate was 81 BPM with a maximum of 104 BPM and a minimum of 57 BPM. N o arrhythmias or ectopy was observed for duration of test. Nadir Ross MD Cardiology follow up:sees IJ sin gh for renal Nadir Ross MD Cardiology follow up : M ay be underlying reason for SOB. S ees pulmonary Nadir Ross MD Cardiology follow up : L ikely related to obesity. S till sees pulmonary. Nadir Ross MD Cardiology follow up : d escribedavid fatigue. G et sleep study on CPAP at home to evaluate for adewuate treatment. do on CPAP that she has at home to determine if she is adequately being treated or if she needs to be titrated July 27, 2019 H ad CPAP testing done with home sleep and was normal, suspect that she is adequatley treated. December 14, 2019 The patient is using CPAP on a regular basis. The patient has been benefiting from therapy and should continue use. January 23, 2021 T he patient is using CPAP on a regular basis. The patient has been benefiting from therapy and should continue use. April 24, 2021 T he patient is using CPAP on a regular basis. The patient has been benefiting from therapy and should continue use. Nadir Ross MD Cardiology follow up : B ilateral subclavian stenosis S/P revascularization. Pulses are intact bialterally. Direct stenting of the left subclavian 70% instent stenosis reduced to 0% residual with implantation of 8 x 29 OmniLink bare metal stent, balloon expandable bare metal stent Still uses disposable cups and plates April 24, 2021 h ad stent to the LSCA in dec 2020 will get ultrasound to eval patency Nadir Ross MD Cardiology Hospital Follow up : [place]. G et sleep study on CPAP at home to evaluate for adewuate treatment. do on CPAP that she has at home to determine if she is adequately being treated or if she needs to be titrated July 27, 2019 H ad CPAP testing done with home sleep and was normal, suspect that she is adequatley treated. December 14, 2019 The patient is using CPAP on a regular basis. The patient has been benefiting from therapy and should continue use. January 23, 2021 T he patient is using CPAP on a regular basis. The patient has been benefiting from therapy and should continue use. Nadir Ross [facility] Follow up : C ONCLUSIONS: 1 . Technically difficult study, limited views secondary to poor acoustic windows. Interpretation is based on available limited v iews. Normal left ventricular systolic function. Normal left ventricular size. Normal left ventricular wall thickness. There is E t o A wave reversal consistent with impaired LV relaxation. E/E': 0.2. Left ventricular ejection fraction is measured at 70 %. 2 . Normal right ventricular size. Normal right ventricular systolic function. 3 . There is trace physiologic aortic valve regurgitation. 4 . Normal appearing tricuspid valve leaflets. There is trace physiologic tricuspid valve regurgitation. IVC is normal in size with n ormal respiratory response. Unable to adequately assess the RVSP. E lectronically Signed By: David Ross MD, [facility] 2 020-06-30 09:31:19 CDT Nadir Ross MD [facility] Follow up : B ilateral subclavian stenosis S/P revascularization. Pulses are intact bialterally. Direct stenting of the left subclavian 70% instent stenosis reduced to 0% residual with implantation of 8 x 29 OmniLink bare metal stent, balloon expandable bare metal stent Still uses disposable cups and plates Nadir [facility] Follow up : S shonda on ASA Plavix Nadir Ross MD Cardiology follow up : B ilateral subclavian stenosis S/P revascularization. Pulses are intact bialterally. Nadir Ross MD Cardiology follow up : S janie Siddiqi for hypothyroidism and diabetes. Check tele for arrhythmia. Nadir Ross MD Cardiology follow up :FINDINGS: R t Upper Ext: Triphasic waveforms are seen in the subclavian, brachial, ulnar and radial. L t Upper Ext: Triphasic waveforms are seen in the subclavian, brachial, ulnar and radial. Elevated velocities are demonstrated in t he mid subclavian at stent. - C ONCLUSIONS: 1 . Elevated velocities in the left middle subclavian artery consistant with in-stent restenosis (PSV=3.23m/s). 2 . Wrist Pressures: Right 129mmHg Left 113mmHg. LSCA 8 x 19 omnilink. S He had new stenosis in the mid left subclavian that was stented. 8x19 omnilink. J brianna 2019 S he has leg fatigue, may be related to PAD and edema. Check arterial/ venous doppler. September 19, 2020 S uspects that she has developed stenosis in the LSCA. Dropping coffee cups again. Plan for UE angio. Nadir Ross MD Cardiology follow up : N eeds to see renal for clearance to proceed with any further angio. creatinine was 1.88 06/2020 C R 1.66 06/04/2020 and 1.88 06/23/2020 Nadir Ross MD Cardiology follow up :EFE FOR GI PROCEDURE WITH MARIAH. EFE FOR HOLDING ASA PLAVIX FOR 5 DAYS. Nadir Ross MD Cardiology follow up :CONCLUSIONS: 1 . Technically difficult study, limited views secondary to poor acoustic windows. Interpretation is based on available limited v iews. Normal left ventricular systolic function. Normal left ventricular size. Normal left ventricular wall thickness. There is E t o A wave reversal consistent with impaired LV relaxation. E/E': 0.2. Left ventricular ejection fraction is measured at 70 %. 2 . Normal right ventricular size. Normal right ventricular systolic function. 3 . There is trace physiologic aortic valve regurgitation. 4 . Normal appearing tricuspid valve leaflets. There is trace physiologic tricuspid valve regurgitation. IVC is normal in size with n ormal respiratory response. Unable to adequately assess the RVSP. E lectronically Signed By: David Ross MD, [facility] 020-- 09:31:19 CDT Nadir Ross MD Cardiology follow up :Needs to see renal for clearance to proceed with any further angio C R 1.66 06/04/2020 and 1.88 06/23/2020 Nadir Ross MD Cardiology follow up :Likely related to obesity. S till sees pulmonary. Nadir Ross MD Cardiology follow up : L SCA 8 x 19 omnilink. S He had new stenosis in the mid left subclavian that was stented. 8x19 omnilink. June 11, 2020 S he has leg fatigue, may be related to PAD and edema. Check arterial/ venous doppler. September 19, 2020 S uspects that she has developed stenosis in the LSCA. Dropping coffee cups again. Plan for UE angio. Nadir Ross MD Cardiology:See Dr. Fransisco guo for hypothyroidism and diabetes. Check tele for arrhythmia. Nadir Ross MD Cardiology: Mayo rior BP: 111/84 (12/14/2019) Labs Reviewed: C reat: 1.66 (06/05/2020) C hol: 123 (05/01/2019) HDL: 54 (05/01/2019) Her updated medication list for this problem includes: Torsemide 100 Mg Oral Tablet (Torsemide) ..... Take one tablet by mouth twice daily Spironolactone 25 Mg Oral Tablet (Spironolactone) ..... Take one tablet by mouth once daily Aspirin Adult Low Dose 81 Mg Oral Tablet Delayed Release (Aspirin) ..... One tab by mouth daily Metoprol Tar 25mg (Metoprolol tartrate) ..... Take one tablet by mouth twice daily Lisinopril 2.5mg (Lisinopril) ..... Take 1 tablet by mouth every day Nadir Ross MD Cardiology: L SCA 8 x 19 omnilink. S He had new stenosis in the mid left subclavian that was stented. 8x19 omnilink. June 11, 2020 S he has leg fatigue, may be related to PAD and edema. Check arterial/ venous doppler. Nadir Ross MD Cardiology: S nixons on ASA Plavix Nadir Ross MD Cardiology: C ath 11/01/19 I MPRESSION: 1 . False positive stress. 2 . Patent subclavians B/L. 3 . Elevated SBP and LVDEP. Nadir Ross MD Cardiology: P er Pulmonary/IM Nadir Ross MD Cardiology: d elen fatigue. G et sleep study on CPAP at home to evaluate for adewuate treatment. do on CPAP that she has at home to determine if she is adequately being treated or if she needs to be titrated July 27, 2019 H ad CPAP testing done with home sleep and was normal, suspect that she is adequatley treated. December 14, 2019 The patient is using CPAP on a regular basis. The patient has been benefiting from therapy and should continue use. Nadir Ross MD Cardiology: H er updated medication list for this problem includes: Torsemide 100 Mg Oral Tablet (Torsemide) ..... Take one tablet by mouth twice daily Spironolactone 25 Mg Oral Tablet (Spironolactone) ..... Take one tablet by mouth once daily Aspirin Adult Low Dose 81 Mg Oral Tablet Delayed Release (Aspirin) ..... One tab by mouth daily Metoprolol Tartrate 25 Mg Oral Tablet (Metoprolol tartrate) ..... One tab. twice daily Lisinopril 2.5 Mg Oral Tablet (Lisinopril) ..... Daily BP today: 111/84 P rior BP: 114/70 (09/20/2019) Labs Reviewed: C reat: 1.51 (05/01/2019) C hol: 123 (05/01/2019) HDL: 54 (05/01/2019) Nadir Ross MD Cardiology: S shonda on ASA Plavix Nadir Ross MD Cardiology: P er Pulmonary/IM Nadir Ross MD Cardiology:Cath 10/14 08/02 I MPRESSION: 1 . False positive stress. 2 . Patent subclavians B/L. 3 . Elevated SBP and LVDEP. Nadir Ross MD Cardiology:Aortogram performed demonstrated RSCA, prior 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 site, with 30% stenosis. LSCA two stents, both w/out significant ISR. Both patent. Nadir Ross MD Cardiology follow up Chang comer MD Cardiology follow up :Per Pulmon jose de jesus/IM Chang Haddadyum MD Cardiology follow up Chang comer MD Cardiology follow up :Will let Vin Ross decide. Chang Olivas MD Cardiology: Jyotsna hinds 01/2018 Conclusions: 1 . Normal left ventricular systolic function. Normal left ventricular size. Normal left ventricular wall t hickness. Mitral inflow Doppler demonstrates pseudonormal pattern consistent with diastolic d ysfunction. Normal E/E` 9.0. Left ventricular ejection fraction is estimated at 60 %. 2 . Normal right ventricular size. Normal right ventricular systolic function. 3 . No significant valvular abnormalities. Nadir Ross MD Cardiology: vin terrazasribedavid fatigue. G et sleep study on CPAP at home to evaluate for adewuate treatment. do on CPAP that she has at home to determine if she is adequately being treated or if she needs to be titrated July 27, 2019 H ad CPAP testing done with home sleep and was normal, suspect that she is adequatley treated. Nadir Ross MD Cardiology:Stays on ASA Plavix S tu Ross MD Cardiology:Stent to L: SCA with occlusion that was noted. WIll get UE US done. Nadir Ross MD Cardiology:Cath munoz nt cors, stent patent LCX. Normal NL LVF. Nadir Ross MD Cardiology:I'll have her come back in a month, she will determine if her Sx are worse or stable and will review with her regarding cardiac cath. Nadir Ross MD Cardiology: L SCA 8 x 19 omnilink. S He had new stenosis in the mid left subclavian that was stented. 8x19 omnilink. Nadir Ross MD Cardiology:Instent r estenosis, may be an issues. Abnormal stress test inferior wall. Reviewed with her. At present, it is unclear what her symptoms are and everything may be just related to COPD. Her LVF is preserved. R emains DAPT. P TCA stenting of high-grade 90% to 95% mid RCA lesion reduced to a 0% residual with implantation o f a 3 mm x 12 mm [employer] Promus PREMIER drug-eluting stent. Nadir Ross MD Cardiology:May be un derlying reason for SOB. S ees pulmonary Nadir Ross MD Cardiology: B P today: 110/60 P rior BP: 130/65 (04/06/2019) Labs Reviewed: C reat: 1.51 (05/01/2019) C hol: 123 (05/01/2019) HDL: 54 (05/01/2019) Her updated medication list for this problem includes: Torsemide 100 Mg Oral Tablet (Torsemide) ..... Take one tablet by mouth twice daily Spironolactone 25 Mg Oral Tablet (Spironolactone) ..... Take one tablet by mouth once daily Aspirin Adult Low Dose 81 Mg Oral Tablet Delayed Release (Aspirin) ..... One tab by mouth daily Metoprolol Tartrate 25 Mg Oral Tablet (Metoprolol tartrate) ..... One tab. twice daily Lisinopril 2.5 Mg Oral Tablet (Lisinopril) ..... Daily Nadir Ross MD Cardiology: d escribes fatigue. G et sleep study on CPAP at home to evaluate for adewuate treatment. do on CPAP that she has at home to determine if she is adequately being treated or if she needs to be titrated Nadir Ross MD Cardiology: R emains DAPT. P TCA stenting of high-grade 90% to 95% mid RCA lesion reduced to a 0% residual with implantation o f a 3 mm x 12 mm [employer] Promus PREMIER drug-eluting stent. Nadir Ross MD Cardiology:LSCA 8 x 19 omnilink. c rogerk INGE LUE Nadir Ross MD Cardiology :Echo 01/13 018 Conclusions: 1 . Normal left ventricular systolic function. Normal left ventricular size. Normal left ventricular wall t hickness. Mitral inflow Doppler demonstrates pseudonormal pattern consistent with diastolic d ysfunction. Normal E/E` 9.0. Left ventricular ejection fraction is estimated at 60 %. 2 . Normal right ventricular size. Normal right ventricular systolic function. 3 . No significant valvular abnormalities. Nadir Ross MD Cardiology Nadir Ross MD Cardiology :Arterial Conclusions: 1 . Severe disease of the left upper extremity. Normal waveforms are seen in the proximal segment of the subclavian artery, however they b ecome monophasic just distal to the body of the clavicle. Disturbed flow with alaising can be seen as the artery emerges from behind the c lavicular body. Suspected high grade stenosis, although this could not be confirmed with ultrasound due to bone shadowing. There is no e vidence of vertebral steal syndrome The risks and benefits of the procedure, including but not limited the risk of heart attack, , stroke, bleeding, kidney failure, and loss of limb as well as the alternative of continued medical therapy, stress testing or bypass surgery were discussed with the patient and any present family members and the patient wishes to proceed with cardiac cath and stenting. The patient and family had opportunity to discuss this with us. Written material including informed consent was given out. Nadir Ross MD Cardiology :Remains DAPT. P TCA stenting of high-grade 90% to 95% mid RCA lesion reduced to a 0% residual with implantation o f a 3 mm x 12 mm [employer] Promus PREMIER drug-eluting stent. Nadir Ross MD Cardiology:having up per ext weakenss on left says she dropps coffee cup and cant hold on to anything h ad an arterial study done before and was neg for blockage by ultrasound no prior angio or cta Nadir Ross MD Cardiology: S ees pulmonary had cxr done recently by pcp Nadir Ross MD Cardiology:still has wekness in the uper extremities has weak pulse on the left radial compared to right this started 2-3 wks ago and unclear if vascular U E ABIs. C onclusions: 1 . Normal arterial flow of the upper extremities. Nadir Ross MD Cardiology: U E ABIs. C onclusions: 1 . Normal arterial flow of the upper extremities. Nadir Ross MD Cardiology Nadir Ross MD Cardiology: 1 . Normal left ventricular systolic function. Normal left ventricular size. Normal left ventricular wall t hickness. Mitral inflow Doppler demonstrates pseudonormal pattern consistent with diastolic d ysfunction. Normal E/E` 9.0. Left ventricular ejection fraction is estimated at 60 %. 2 . Normal right ventricular size. Normal right ventricular systolic function. 3 . No significant valvular abnormalities. Nadir Ross MD Cardiology:Wheezing. Nadir bravo MD Cardiology: T he following medications were removed from the medication list: Bumetanide 2 Mg Oral Tablet (Bumetanide) ..... 1 tab twice daily Metolazone 2.5 Mg Oral Tablet (Metolazone) ..... Take one tablet one half hour before taking bumex tuesday, tuesday and tuesday Her updated medication list for this problem includes: Metolazone 2.5 Mg Oral Tablet (Metolazone) ..... Once daily Torsemide 100 Mg Oral Tablet (Torsemide) ..... 1/2 tab once daily Metoprolol Tartrate 25 Mg Oral Tablet (Metoprolol tartrate) ..... One tab. twice daily Lisinopril 2.5 Mg Oral Tablet (Lisinopril) ..... Daily Aspirin 325 Mg Oral Tablet (Aspirin) ..... Take one pill a day BP today: 132/75 P rior BP: 140/80 (04/07/2018) Labs Reviewed: C reat: 1.1 (08/29/2017) C hol: 234.0 (05/20/2016) HDL: 72.0 (05/20/2016) T.0 (05/20/2016) Nadir Ross MD Cardiology Follow up : d escribedavid fatigue. G et sleep study on CPAP at home to evaluate for adewuate treatment. do on CPAP that she has at home to determine if she is adequately being treated or if she needs to be titrated Krishna Sorin Cardiology Follow up : d elen fatigue. G et sleep study on CPAP at home to evaluate for adewuate treatment. Nadir Ross MD Cardiology Follow up : H er updated medication list for this problem includes: Bumetanide 2 Mg Oral Tablet (Bumetanide) ..... 1 tab twice daily Metolazone 2.5 Mg Oral Tablet (Metolazone) ..... Take one tablet one half hour before taking bumex tuesday, tuesday and tuesday Metoprolol Tartrate 25 Mg Oral Tablet (Metoprolol tartrate) ..... One tab. twice daily Lisinopril 2.5 Mg Oral Tablet (Lisinopril) ..... Daily Aspirin 325 Mg Oral Tablet (Aspirin) ..... Take one pill a day Nadir Ross MD Cardiology Follow up : David nicole pulmonary Nadir Ross MD Cardiology Follow up :1. Normal left ventricular systolic function. Normal left ventricular size. Normal left ventricular wall t hickness. Mitral inflow Doppler demonstrates pseudonormal pattern consistent with diastolic d ysfunction. Normal E/E` 9.0. Left ventricular ejection fraction is estimated at 60 %. 2 . Normal right ventricular size. Normal right ventricular systolic function. 3 . No significant valvular abnormalities. Nadir Ross MD Cardiology Follow up Nadir bravo MD Cardiology follow up:JAH Griffith. Sa dann Ross MD Cardiology follow up :describes fatigue. G et sleep study on CPAP at home to evaluate for adewuate treatment. Nadir Ross MD Cardiology follow up:Phylicia Ross MD Cardiology follow up Nadir bravo MD Cardiology follow up :No new issues. No recent stress test. Nadir Ross MD Cardiology follow up Nadir bravo MD Cardiology:Belkis barber following medications were removed from the medication list: Furosemide 40 Mg Oral Tablet (Furosemide) ..... Take one pill twice a day Her updated medication list for this problem includes: Bumetanide 2 Mg Oral Tablet (Bumetanide) ..... 1 tab twice daily Metolazone 2.5 Mg Oral Tablet (Metolazone) ..... Take one tablet one half hour before taking bumex tuesday, tuesday and tuesday Metoprolol Tartrate 25 Mg Oral Tablet (Metoprolol tartrate) ..... One tab. twice daily Lisinopril 2.5 Mg Oral Tablet (Lisinopril) ..... Daily Aspirin 325 Mg Oral Tablet (Aspirin) ..... Take one pill a day Nadir Ross MD Cardiology:Intermitt enly there. Most likely, COPD related. Nadir Ross MD Cardiology Nadir Ross MD Cardiology:Needs to be seen by pulmonary. Has had PFTs done. Nadir Ross MD Cardiology:Coronarie s patent 2016 in the setting of abnormal stress test. Continues ASA/Plavix Nadir Ross MD Cardiology Follow up :Elevated d ue to steroids. Nadir Ross MD Cardiology Follow up : U sing CPAP T he patient has been using their CPAP device at least 4 hours at night, at least 5 days per week and has noticed sleep apnea symptoms improved, including improved energy, decreased daytime sleepiness, decreased awakenings, and improved sleep quality. Nadir Ross MD Cardiology Follow up Nadir bravo MD Cardiology Follow up :Most likely diastolic CHF. Has to have salt reduction, has been eating pickles. Nadir Ross MD Cardiology Follow up :Wheezing. Nadir Ross MD Cardiology Follow up :Bilateral subclavian stenosis S/P revascularization. Pulses are intact bialterally. Nadir Ross MD Cardiology Follow up :Check echo. Last echo was in 2013, she has HTN and CAD and PVD. Nadir Ross MD Cardiology Follow up Nadir bravo MD Cardiology Follow up :Check an echo to evaluate for LVH. Nadir Ross MD Cardiology Follow up :Patent based on recent cath and in the setting of abnormal stress. Has remained on Aspirin and Plavix. Prefers to remain on it. In perspective of CAD and PAD. Nadir Ross MD Cardiology Follow up : U sing CPAP T he patient has been using their CPAP device at least 4 hours at night, at least 5 days per week and has noticed sleep apnea symptoms improved, including improved energy, decreased daytime sleepiness, decreased awakenings, and improved sleep quality. Nadir Ross MD Cardiology Follow up :Stable, no med channges at si time. H er updated medication list for this problem includes: Metoprolol Tartrate 25 Mg Tabs (Metoprolol tartrate) ..... One tab. twice daily Lisinopril 2.5 Mg Tabs (Lisinopril) ..... Daily Aspirin 325 Mg Tabs (Aspirin) ..... Hold till 09/02 Lasix 20 Mg Tabs (Furosemide) ..... 1 tab daily Erin Macias NP Cardiology Follow up :Stable H er updated medication list for this problem includes: Stiolto Respimat Aers (Tiotropium bromide-olodaterol aers) ..... Once dialy Singulair 10 Mg Tabs (Montelukast sodium) ..... As directed Proair Hfa Aers (Albuterol sulfate aers) ..... As directed Combivent Respimat Aers (Ipratropium-albuterol aers) ..... As directed Symbicort Aero (Budesonide-formoterol fumarate aero) ..... As directed Erin Macias NP Cardiology Follow up :Denies chest pain or sob. H er updated medication list for this problem includes: Plavix 75 Mg Tabs (Clopidogrel bisulfate) ..... One tab. daily Metoprolol Tartrate 25 Mg Tabs (Metoprolol tartrate) ..... One tab. twice daily Lisinopril 2.5 Mg Tabs (Lisinopril) ..... Daily Nitroglycerin Aers (Nitroglycerin aers) ..... Use as needed Aspirin 325 Mg Tabs (Aspirin) ..... Hold till 09/02 Erin Macias NP Cardiology Follow up:No complain ts of chest pain. Erin Macias NP Cardiology Nadir Ross MD Cardiology Nadir Ross MD Cardiology:Using CPAP Nadir Ross MD Cardiology: H er updated medication list for this problem includes: Stiolto Respimat Aers (Tiotropium bromide-olodaterol aers) ..... Once dialy Singulair 10 Mg Tabs (Montelukast sodium) ..... As directed Proair Hfa Aers (Albuterol sulfate aers) ..... As directed Combivent Respimat Aers (Ipratropium-albuterol aers) ..... As directed Symbicort Aero (Budesonide-formoterol fumarate aero) ..... As directed Nadir Ross MD Cardiology Nadir Ross MD Cardiology:Will chec k upper extremity and lower extremity ultrasounds in the setting of her symptoms and history of PAD H er updated medication list for this problem includes: Plavix 75 Mg Tabs (Clopidogrel bisulfate) ..... One tab. daily Aspirin 325 Mg Tabs (Aspirin) ..... Hold till 09/02 Nadir Ross MD Cardiology Nadir Ross MD Cardiology:C/O inter mitten chest pain. Plan for cath in light of positive nuclear stress test. H er updated medication list for this problem includes: Plavix 75 Mg Tabs (Clopidogrel bisulfate) ..... One tab. daily Metoprolol Tartrate 25 Mg Tabs (Metoprolol tartrate) ..... One tab. twice daily Lisinopril 2.5 Mg Tabs (Lisinopril) ..... Daily Nitroglycerin Aers (Nitroglycerin aers) ..... Use as needed Aspirin 325 Mg Tabs (Aspirin) ..... Hold till 09/02 Erin Macias NP Cardiology:Managed p er her PCP H er updated medication list for this problem includes: Lisinopril 2.5 Mg Tabs (Lisinopril) ..... Daily Metformin Hcl Tabs (Metformin hcl tabs) ..... 1 tab daily Aspirin 325 Mg Tabs (Aspirin) ..... Hold till 09/02 Erin Macias NP Cardiology: H er updated medication list for this problem includes: Lisinopril 2.5 Mg Tabs (Lisinopril) ..... Daily Metformin Hcl Tabs (Metformin hcl tabs) ..... 1 tab daily Aspirin 325 Mg Tabs (Aspirin) ..... Hold till 09/02 Erin Macias NP Cardiology:BP adequa tely controlled H er updated medication list for this problem includes: Metoprolol Tartrate 25 Mg Tabs (Metoprolol tartrate) ..... One tab. twice daily Lisinopril 2.5 Mg Tabs (Lisinopril) ..... Daily Aspirin 325 Mg Tabs (Aspirin) ..... Hold till 09/02 Lasix 20 Mg Tabs (Furosemide) ..... 1 tab daily Erin Macias NP Cardiology:Positive nuclear stress test. Will triage for cardiac catheterization. Patient aware and agreeable Erin Macias NP Cardiology: H er updated medication list for this problem includes: Plavix 75 Mg Tabs (Clopidogrel bisulfate) ..... One tab. daily Metoprolol Tartrate 25 Mg Tabs (Metoprolol tartrate) ..... One tab. twice daily Lisinopril 2.5 Mg Tabs (Lisinopril) ..... Daily Nitroglycerin Aers (Nitroglycerin aers) ..... Use as needed Aspirin 325 Mg Tabs (Aspirin) ..... Hold till 09/02 Erin Macias NP Cardiology Erin Huber Cardiology:BP today: 143/79 P rior BP: 147/83 (02/06/2016) Nadir Ross MD Cardiology:S/P BILAT ERAL SUBCLAVIAN INTERVENTION. L SUBCLAVIAN STENT. WILL OBTAIN UPPER EXTREMITY INGE'S Nadir Ross MD Cardiology:Bilateral subclavian steel. Erin Macias NP Cardiology:Stress te st reviewed by Dr. Ross. No need for repeat cardiac cath. Continue current meds. H er updated medication list for this problem includes: Plavix 75 Mg Tabs (Clopidogrel bisulfate) ..... One tab. daily Metoprolol Tartrate 25 Mg Tabs (Metoprolol tartrate) ..... One tab. twice daily Lisinopril 2.5 Mg Tabs (Lisinopril) ..... Daily Nitroglycerin Aers (Nitroglycerin aers) ..... Use as needed Aspirin 325 Mg Tabs (Aspirin) ..... Hold till 09/02 Erin Macias NP Cardiology:controlled Nadir Ross MD Cardiology:repeat nu clear stress test just had stent to the rca and has sob still c heck pft Nadir Ross MD Cardiology:do repeat titration study mask doesnt fit and has a leak Nadir Ross MD Cardiology: O rders: [phone] HIGH Complex ([id number]) S TR - Adenosine (62462) S leep Study Home (*) F VC - 35024 (43137) F RC - 01696 (00907) D LCO - 34292 (57266) S NOMED-CT: [id number] Physical Exam, Performed: Pulse Exam of Foot ([id number]) Nadir Ross MD Cardiology:SLEEP STUDY TITRATION Nadir Ross MD Cardiology: H er updated medication list for this problem includes: Lisinopril 2.5 Mg Tabs (Lisinopril) ..... Daily Bystolic Tabs (Nebivolol hcl tabs) ..... As directed Aspirin 325 Mg Tabs (Aspirin) ..... Hold till 09/02 Lasix 20 Mg Tabs (Furosemide) ..... 1 tab daily Nadir Ross MD Cardiology:REPEAT TO STRESS WIT H ? ANGINA Nadir Ross MD Cardiology:WILL GET HEART MONITO R TO EXCLUDE AFIB Nadir Ross MD follow up: O rders: E KG (CPT-[id number]) Nadir Ross MD Hospital Follow up : H er updated medication list for this problem includes: Lisinopril 2.5 Mg Tabs (Lisinopril) ..... Daily Metformin Hcl Tabs (Metformin hcl tabs) ..... 1 tab daily Aspirin 325 Mg Tabs (Aspirin) ..... Hold till 09/02 Orders: C omplete Echo (CPT-12275) S TR - Adenosine (86844) C arotid Duplex Bilateral (CPT-68529) A ortic Abdominal Ultrasound (CPT-87739) Nadir Ross MD Hospital Follow up : H er updated medication list for this problem includes: Plavix 75 Mg Tabs (Clopidogrel bisulfate) ..... 1 tab daily Aspirin 325 Mg Tabs (Aspirin) ..... Hold till 09/02 Orders: C omplete Echo (CPT-74012) S TR - Adenosine (75375) C arotid Duplex Bilateral (CPT-59559) A ortic Abdominal Ultrasound (CPT-57384) Nadir Ross MD Hospital Follow up : O rders: C omplete Echo (CPT-76267) S TR - Adenosine (67230) C arotid Duplex Bilateral (CPT-00326) A ortic Abdominal Ultrasound (CPT-03259) Nadir Ross MD Hospital Follow up : O rders: E KG (CPT-83685) Nadir Ross MD Hospital Follow up : H er updated medication list for this problem includes: Lisinopril 2.5 Mg Tabs (Lisinopril) ..... Daily Bystolic Tabs (Nebivolol hcl tabs) ..... As directed Aspirin 325 Mg Tabs (Aspirin) ..... Hold till 09/02 Lasix 20 Mg Tabs (Furosemide) ..... 1 tab daily Orders: C omplete Echo (CPT-74525) S TR - Adenosine (18211) C arotid Duplex Bilateral (CPT-78373) A ortic Abdominal Ultrasound (CPT-05372) Nadir Ross MD Follow u p: H er updated medication list for this problem includes: Metformin Hcl Tabs (Metformin hcl tabs) ..... 1 tab daily Aspirin 325 Mg Tabs (Aspirin) ..... Hold till 09/02 Nadir Ross MD Follow u p: H er updated medication list for this problem includes: Plavix 75 Mg Tabs (Clopidogrel bisulfate) ..... 1 tab daily Aspirin 325 Mg Tabs (Aspirin) ..... Hold till 09/02 Nadir Ross MD Follow u p: H er updated medication list for this problem includes: Bystolic Tabs (Nebivolol hcl tabs) ..... As directed Aspirin 325 Mg Tabs (Aspirin) ..... Hold till 09/02 Lasix 20 Mg Tabs (Furosemide) ..... 1 tab daily aNdir Ross MD Follow u p: O rders: E KG (CPT-23911) Nadir Ross MD Follow u p: H er updated medication list for this problem includes: Bystolic Tabs (Nebivolol hcl tabs) ..... As directed Aspirin 325 Mg Tabs (Aspirin) ..... Hold till 09/02 Lasix 20 Mg Tabs (Furosemide) ..... 1 tab daily Nadir Ross MD hospital fu after subclavian PTC A faxed 09/03/14 0939 Boston Banks MD hospital fu after hinds bclavian PTCA faxed 09/03/14 0939:On 07/09/2014 P ROCEDURES PERFORMED: 1 . Aortogram. 2 . Selective injection of the right subclavian artery with catheter within the right subclavian. 3 . Selective injection of the left subclavian artery with catheter in the left subclavian. 4 . Percutaneous transluminal angioplasty of the right subclavian 99% stenosis reduced to a 30% r esidual with 7 mm x 40 mm balloon. 5 . Right femoral angiogram, and 8-[place] Angio-Seal closure. O rders: S chedule Followup (*) Boston Banks MD hospital fu after subclavian PTC A faxed 09/03/14 0939 Boston Banks MD hospital fu after subclavian PTC A faxed 09/03/14 0939 Boston Banks MD Date Name Complete Echo Stress Regadenoson Arterial Duplex Bi-L ower EX Arterial Duplex Uppe r Extremity Bilateral EKG Arterial Duplex Uppe r Extremity Bilateral Arterial Duplex LUE Arterial Duplex Bi-L ower EX Complete Echo Complete Echo Arterial Duplex LUE Stress Regadenoson Complete Echo COMPREHENSIVE METABO LIC PANEL, W/EGFR COMPREHENSIVE METABO LIC PANEL, W/EGFR Carotid Duplex Bilat eral Arterial Duplex LUE LIPID PANEL BASIC METABOLIC PANE L W/EGFR AIF Intervention - S LHV Arterial Duplex Uppe r Extremity Bilateral Event Monitor Venous Doppler Bilat eral LE - Reflux Arterial Duplex Bi-L ower EX BASIC METABOLIC PANE L W/EGFR Carotid Duplex Bilat eral Complete Echo Arterial Duplex LUE Arterial Duplex Uppe r Extremity Bilateral PROTHROMBIN TIME WIT H INR LIPID PANEL CBC (INCLUDES DIFF/P LT) BASIC METABOLIC PANE L W/EGFR AIF Diagnostic - SLH V AIF Intervention - S LHV Arterial Duplex Uppe r Extremity Bilateral Sleep Study Home Sleep Study Home Arterial Duplex Uppe r Extremity Bilateral STR - Adenosine Complete Echo COMPREHENSIVE METABO LIC PANEL, W/EGFR B TYPE NATRIURETIC P EPTIDE (BNP) Holter Monitor 24 Hr 6 minute walk test DLCO - 32579 FRC - 94309 FVC - 92875 Complete Echo Complete Echo Arterial Duplex Bi-L ower EX Arterial Duplex to r /o psuedoanuerysim Arterial Duplex Uppe r Extremity Bilateral PROTHROMBIN TIME WIT H INR CBC (INCLUDES DIFF/P LT) LIPID PANEL BASIC METABOLIC PANE L W/EGFR Arterial Duplex Uppe r Extremity Bilateral Sleep Study Titratio n DLCO - 53386 FRC - 55322 FVC - 77452 Sleep Study Home STR - Adenosine LIPID PANEL PROTHROMBIN TIME WIT H INR BASIC METABOLIC PANE L W/EGFR Holter Monitor 24 Hr Sleep Study Titratio n STR - Adenosine Arterial Duplex Uppe r Extremity Bilateral Arterial Duplex Bi-L ower EX Aortic Abdominal Ult rasound Carotid Duplex Bilat eral STR - Adenosine Complete Echo Peripheral Stent - G C AIF - GC Arterial Duplex RUE HISTORY OF PROCEDURES Procedure Date Procedure Name Provider Procedure Notes S tatus Complex e/m visit add on Nadir Ross MD completed EKG Nadir Ross MD completed Complex e/m visit add on Nadir Ross MD completed EKG Nadir Ross MD completed EKG Nadir Ross MD completed EKG Nadir Ross MD completed EKG Nadir Ross MD completed EKG Nadir Ross MD completed EKG Sanjaya Pelon Ross MD completed EKG Radhaya Pelon Ross MD completed EKG Radhaya Pelon Ross MD completed EKG Radhaya Pelon Ross MD completed EKG Radhaya Pelon Ross MD completed EKG Radhaya Pelon Ross MD completed EKG Nadir Ross MD completed EKG Nadir Ross MD completed EKG Chaimjaya Pelon Ross MD completed EKG Radhaya Pelon Ross MD completed EKG Radhaya Pelon Ross MD completed Mobile Cardiac Telem etry - Tech Nadir Ross MD completed Mobile Cardiac Telem etry - Prof Nadir Ross MD completed EKG Nadir Ross MD completed EKG Nadir Ross MD completed EKG Chang Olivas MD completed EKG Chaimjaya Pelon Ross MD completed EKG Radhaya Pelon Ross MD completed Regadenoson, 4 units Nadir bravo MD completed Cardiolite, 2 units Nadir kern MD completed SPECT Images Nadir Ross MD completed Stress EKG Nadir Ross MD completed EKG Nadir Ross MD completed EKG Radhaya Pelon Ross MD completed EKG Nadir Ross MD completed EKG Nadir Ross MD completed EKG Nadir Ross MD completed Regadenoson, 4 units Radhaya Pelon bravo MD completed Cardiolite, 2 units Radhaya Pelon kern MD completed SPECT Images Criselda Hoang MD compl eted Stress EKG Nate Bundy MD complete d EKG Nadir Ross MD completed EKG Nadir Ross MD completed SNOMED-CT: 824654708720814 Current Medications Documented Nadir Ross MD completed FVC / MVV with bronchodilator - 61334 Nadir Ross MD completed 6 minute walk test Nadir workman MD completed BLOOD COUNT HEMOGLOBIN Nadir Ross MD completed FRC - 74687 Nadir Ross MD completed SpO2 - 13276 Nadir Ross MD completed DLCO - 48249 Nadir Ross MD completed ZIO Holter Hookup Nadir tovar MD completed Ambulatory Oximetry Nadir kern MD completed EKG Nadir Ross MD completed SNOMED-CT: 017292286071549 Current Medications Documented Nadir Ross MD completed EKG Nadir Ross MD completed SNOMED-CT: 680390980319544 Current Medications Documented Nadir Ross MD completed EKG Nadir Ross MD completed SNOMED-CT: 702777977515809 Current Medications Documented Nadir Ross MD completed Ultrasound, retroperitoneal, complete Maykel Rodriguez MD completed EKG Nadir Ross MD completed SNOMED-CT: 462062011081504 Current Medications Documented Nadir Ross MD completed EKG Nadir Ross MD completed SNOMED-CT: 745822518560595 Current Medications Documented Nadir Ross MD completed Stress EKG Nadir Ross MD completed Regadenoson, 4 units Nadir bravo MD completed Cardiolite, 2 units Nadir kern MD completed SPECT Images Nadir Ross MD completed SNOMED-CT: 75607674 Physical Exam, Performed: Pulse Exam of Foot Nadir Ross MD completed EKG Nadir Ross MD completed SNOMED-CT: 110004355767348 Current Medications Documented Nadir Ross MD completed EKG Nadir Ross MD completed SNOMED-CT: 162705236569485 Current Medications Documented Nadir Ross MD completed Stress EKG Alonso Renner MD complete d Regadenoson, 4 units Nadir bravo MD completed Cardiolite, 2 units Nadir kren MD completed SPECT Images Criselda Hoang MD compl eted BLOOD COUNT HEMOGLOBIN Nadir Ross MD completed FVC - 54338 Nadir Ross MD completed FRC - 54618 Nadir Ross MD completed DLCO - 85994 Nadir Ross MD completed SNOMED-CT: 51398350 Physical Exam, Performed: Pulse Exam of Foot Nadir Ross MD completed EKG Nadir Ross MD completed SNOMED-CT: 284000389521267 Current Medications Documented Nadir Ross MD completed Stress EKG Maykel Rodriguez MD completed Regadenoson, 4 units Nadir bravo MD completed Cardiolite, 2 units Nadir kern MD completed SPECT Images Nadir Ross MD completed Holter, 24 or 48 Criselda Hoang MD c ompleted EKG Nadir Ross MD completed SNOMED-CT: 885362887825060 Current Medications Documented Nadir Ross MD completed EKG Nadir Ross MD completed EKG Nadir Ross MD completed EKG Boston hernandez MD completed EKG Nadir Ross MD completed Schedule Followup Boston hines MD Please schedule a follow-up appointment with Dr. ross in 6 months. completed EKG Boston hernandez MD completed
--- OUTSIDE RECORDS SUMMARY | 2025-03-19 10:52 | XMS_ITS | Patient Health Record ---
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 Waxer Operator Name Role Phone Damian Rodriguez Unavailable [phone] REASON FOR REFERRAL No Information MEDICATIONS Medication SIG (Take, Route, Frequency, Duration) Notes Start Date End Date Status Torsemide 100 MG TAKE 1/2 TABLET BY MOUTH TWICE DAILY DIRECTED for 90 Active Cipro 500 MG 1 tablet Orally ever y 12 hrs for 10 01/18/2024 Active Potassium Chloride ER 20 MEQ TAKE 1 TABLET BY MOUTH TWICE DAILY WITH FOOD for 90 Active Jardiance 10 MG 1 tablet Orally Once a day for 30 day(s) 03/04/2025 04/03/2025 Active Vitamin D (Ergocalciferol) 1.25 MG (93307 UT) TAKE 1 CAPSULE BY MOUTH 1 TIME A WEEK for 91 Active Klor-Con 20 MEQ MIX AND DRINK 1 PACK ET BY MOUTH DAILY WITH FOOD for 90 Active Spironolactone 25 MG 1 tablet Orally onc e a day for 90 days 09/20/2024 09/15/2025 Active Protonix 40 MG 1 tablet Orally Once a day for 90 day(s) 03/10/2022 Active Medrol 4 MG as directed Orally 03/10/2022 Active Azithromycin 1 GM 1 martina as directed 03/10/2022 Active Calcitriol 0.25 MCG TAKE 1 CAPSULE BY MO UTH TWICE DAILY for 90 Active Allopurinol 300 MG TAKE 1 TABLET BY MAY TH DAILY for 90 Active PROBLEMS Problem Type ICD Code Onset Dates Problem Status W/U Status Risk SNOMED Code Notes Problem Type 2 diabetes mellitus with hyperglycemia (E11.65) Active confirmed Hyperglycemia d ue to type 2 diabetes mellitus (931564040755171) Problem Secondary hyperparathyroid ism, not elsewhere classified (E21.1) Active confirmed Secondary hyperparathyroidism (79737733) Problem Vitamin D deficiency, unspecified (E55.9) Active confirmed Vitamin D defic iency (57688222) Problem Hyperlipidemia, unspecified (E78.5) Active confirmed Hyperlipidemia (97624753) Problem Metabolic disorder, unspecified (E88.9) Active confirmed Metabolic disor beto (41311230) Problem Unspecified abdominal hernia without obstruction or gangrene (K46.9) Active confirmed Problem Renal osteodystrophy (N25.0) Active confirmed Renal osteodyst rophy (48904670) Problem Essential hypertension (I10) Active confirmed Essential hypertension (68813254) Problem Viral upper respiratory tract infection (J06.9) Active confirmed Viral upper respiratory tract infection (519968921) Problem Chronic kidney disease, stage 3 unspecified (N18.30) Active confirmed Chronic kidney disease stage 3 (disorder) (042472895) Encounters Encounter Location Date Provider Diagnosis [facility] [address] [address] 03/21/2024 Damian Rodriguez Chronic kidney disea se, stage 3 unspecified N18.30 ; Type 2 diabetes mellitus with hyperglycemia E11.65 ; Renal osteodystrophy N25.0 ; Secondary hyperparathyroidism, not elsewhere classified E21.1 ; Vitamin D deficiency, unspecified E55.9 and Viral upper respiratory tract infection J06.9 [facility] [address] [place] [address] 04/13/2024 Damian Rodriguez Chronic kidney disea se, stage 3 unspecified N18.30 ; Type 2 diabetes mellitus with hyperglycemia E11.65 ; Renal osteodystrophy N25.0 ; Secondary hyperparathyroidism, not elsewhere classified E21.1 ; Vitamin D deficiency, unspecified E55.9 and Viral upper respiratory tract infection J06.9 [facility] [address] [address] 07/11/2024 Damian Rodriguez Chronic kidney disea se, stage 3 unspecified N18.30 ; Essential hypertension I10 ; Type 2 diabetes mellitus with hyperglycemia E11.65 ; Renal osteodystrophy N25.0 ; Secondary hyperparathyroidism, not elsewhere classified E21.1 ; Vitamin D deficiency, unspecified E55.9 and Viral upper respiratory tract infection J06.9 [facility] [address] [place] [address] [place] [address] 08/29/2024 Damian Rodriguez [facility] [address] [place] [address] [place] [address] 08/31/2024 Damian Rodriguez Chronic kidney disea se, stage 3 unspecified N18.30 ; Type 2 diabetes mellitus with hyperglycemia E11.65 ; Renal osteodystrophy N25.0 ; Secondary hyperparathyroidism, not elsewhere classified E21.1 ; Vitamin D deficiency, unspecified E55.9 ; Viral upper respiratory tract infection J06.9 and Essential hypertension I10 [facility] [address] [place] [address] 09/19/2024 Damian Rodriguez Chronic kidney disea se, stage 3 unspecified N18.30 ; Type 2 diabetes mellitus with hyperglycemia E11.65 ; Renal osteodystrophy N25.0 ; Secondary hyperparathyroidism, not elsewhere classified E21.1 ; Vitamin D deficiency, unspecified E55.9 ; Viral upper respiratory tract infection J06.9 and Essential hypertension I10 [facility] [address] [place] [address] 09/21/2024 [facility] [address] [place] [address] 10/05/2024 Damian Rodriguez Chronic kidney disea se, stage 3 unspecified N18.30 ; Type 2 diabetes mellitus with hyperglycemia E11.65 ; Renal osteodystrophy N25.0 ; Secondary hyperparathyroidism, not elsewhere classified E21.1 ; Vitamin D deficiency, unspecified E55.9 ; Viral upper respiratory tract infection J06.9 and Essential hypertension I10 [facility] [address] [place] [address] 11/30/2024 Damian Rodriguez Chronic kidney disea se, stage 3 unspecified N18.30 ; Type 2 diabetes mellitus with hyperglycemia E11.65 ; Hypokalemia E87.6 ; Edema, unspecified R60.9 ; Hyperlipidemia, unspecified E78.5 ; Renal osteodystrophy N25.0 and Secondary hyperparathyroidism, not elsewhere classified E21.1 [facility] [address] [place] [address] 01/18/2025 Damian Rodriguez Chronic kidney disea se, stage 3 unspecified N18.30 ; Type 2 diabetes mellitus with hyperglycemia E11.65 ; Renal osteodystrophy N25.0 ; Secondary hyperparathyroidism, not elsewhere classified E21.1 ; Vitamin D deficiency, unspecified E55.9 ; Viral upper respiratory tract infection J06.9 ; Essential hypertension I10 and Hyperlipidemia, unspecified E78.5 [facility] [address] [place] [address] 02/27/2025 Damian Rodriguez Chronic kidney disea se, [...] abdominal hernia without obstruction or gangrene K46.9 [facility] [address] [place] [address] 03/04/2025 Damian Rodriguez Chronic kidney disea se, [...] abdominal hernia without obstruction or gangrene K46.9 [facility] [address] [address] 09/20/2024 [facility] [address] [address] 09/20/2024 [facility] [address] [address] 09/20/2024 [facility] [address] [address] 11/30/2024 [facility] [address] [address] 02/27/2025 [facility] [address] [address] 02/27/2025 [facility] [address] [facility] [place] [address] [place] [address] 03/04/2025 Damian Rodriguez [facility] [address] [place] [address] [place] [address] 03/05/2025 Damian Rodriguez [facility] [address] [facility] [place] [address] [place] [address] 09/20/2024 Damian Rodriguez [facility] [address] [address] 09/20/[address] [place] [address] [place] [address] 09/20/[address] [place] [address] [place] [address] 09/20/2024 Damian Rodriguez ASSESSMENTS Encounter Date Diagnosis Assessment Notes Treatment Notes Treatment Clinical Notes Section Notes 03/21/2024 Chronic kidney disease, stage 3 unspecified (ICD-10 - N18.30) 04/13/2024 Chronic kidney disease, stage 3 unspecified (ICD-10 - N18.30) 07/11/2024 Chronic kidney disease, stage 3 unspecified (ICD-10 - N18.30) 07/11/2024 Essential hypertension (ICD-10 - I10) 08/31/2024 Chronic kidney disease, stage 3 unspecified (ICD-10 - N18.30) 09/19/2024 Chronic kidney disease, stage 3 unspecified (ICD-10 - N18.30) 10/05/2024 Chronic kidney disease, stage 3 unspecified (ICD-10 - N18.30) 01/18/2025 Chronic kidney disease, stage 3 unspecified (ICD-10 - N18.30) 02/27/2025 Chronic kidney disease, stage 3 unspecified (ICD-10 - N18.30) 03/04/2025 Chronic kidney disease, stage 3 unspecified (ICD-10 - N18.30) 11/30/2024 Chronic kidney disease, stage 3 unspecified (ICD-10 - N18.30) 11/30/2024 Type 2 diabetes mellitus with hyperglycemia (ICD-10 - E11.65) 11/30/2024 Hypokalemia (ICD-10 - E87.6) 03/04/2025 Essential hypertension (ICD-10 - I10) 02/27/2025 Essential hypertension (ICD-10 - I10) 01/18/2025 Type 2 diabetes mellitus with hyperglycemia (ICD-10 - E11.65) 10/05/2024 Type 2 diabetes mellitus with hyperglycemia (ICD-10 - E11.65) 09/19/2024 Type 2 diabetes mellitus with hyperglycemia (ICD-10 - E11.65) 08/31/2024 Type 2 diabetes mellitus with hyperglycemia (ICD-10 - E11.65) 07/11/2024 Type 2 diabetes mellitus with hyperglycemia (ICD-10 - E11.65) 04/13/2024 Type 2 diabetes mellitus with hyperglycemia (ICD-10 - E11.65) 03/21/2024 Type 2 diabetes mellitus with hyperglycemia (ICD-10 - E11.65) 03/21/2024 Renal osteodystrophy (ICD-10 - N25.0) 04/13/2024 Renal osteodystrophy (ICD-10 - N25.0) 07/11/2024 Renal osteodystrophy (ICD-10 - N25.0) 08/31/2024 Renal osteodystrophy (ICD-10 - N25.0) 09/19/2024 Renal osteodystrophy (ICD-10 - N25.0) 10/05/2024 Renal osteodystrophy (ICD-10 - N25.0) 01/18/2025 Renal osteodystrophy (ICD-10 - N25.0) 02/27/2025 Type 2 diabetes mellitus with hyperglycemia (ICD-10 - E11.65) 03/04/2025 Type 2 diabetes mellitus with hyperglycemia (ICD-10 - E11.65) 11/30/2024 Edema, unspecified (ICD-10 - R60.9) 11/30/2024 Hyperlipidemia, unspecified (ICD-10 - E78.5) 03/04/2025 Renal osteodystrophy (ICD-10 - N25.0) 02/27/2025 Renal osteodystrophy (ICD-10 - N25.0) 01/18/2025 Secondary hyperparathyroidism , not elsewhere classified (ICD-10 - E21.1) 10/05/2024 Secondary hyperparathyroidism , not elsewhere classified (ICD-10 - E21.1) 09/19/2024 Secondary hyperparathyroidism , not elsewhere classified (ICD-10 - E21.1) 08/31/2024 Secondary hyperparathyroidism , not elsewhere classified (ICD-10 - E21.1) 07/11/2024 Secondary hyperparathyroidism , not elsewhere classified (ICD-10 - E21.1) 04/13/2024 Secondary hyperparathyroidism , not elsewhere classified (ICD-10 - E21.1) 03/21/2024 Secondary hyperparathyroidism , not elsewhere classified (ICD-10 - E21.1) 03/21/2024 Vitamin D deficiency, unspecified (ICD-10 - E55.9) 04/13/2024 Vitamin D deficiency, unspecified (ICD-10 - E55.9) 07/11/2024 Vitamin D deficiency, unspecified (ICD-10 - E55.9) 08/31/2024 Vitamin D deficiency, unspecified (ICD-10 - E55.9) 09/19/2024 Vitamin D deficiency, unspecified (ICD-10 - E55.9) 10/05/2024 Vitamin D deficiency, unspecified (ICD-10 - E55.9) 01/18/2025 Vitamin D deficiency, unspecified (ICD-10 - E55.9) 02/27/2025 Secondary hyperparathyroidism , not elsewhere classified (ICD-10 - E21.1) 03/04/2025 Secondary hyperparathyroidism , not elsewhere classified (ICD-10 - E21.1) 11/30/2024 Renal osteodystrophy (ICD-10 - N25.0) 11/30/2024 Secondary hyperparathyroidism , not elsewhere classified (ICD-10 - E21.1) 03/04/2025 Vitamin D deficiency, unspecified (ICD-10 - E55.9) 02/27/2025 Vitamin D deficiency, unspecified (ICD-10 - E55.9) 01/18/2025 Viral upper respiratory tract infection (ICD-10 - J06.9) 10/05/2024 Viral upper respiratory tract infection (ICD-10 - J06.9) 09/19/2024 Viral upper respiratory tract infection (ICD-10 - J06.9) 08/31/2024 Viral upper respiratory tract infection (ICD-10 - J06.9) 07/11/2024 Viral upper respiratory tract infection (ICD-10 - J06.9) 04/13/2024 Viral upper respiratory tract infection (ICD-10 - J06.9) 03/21/2024 Viral upper respiratory tract infection (ICD-10 - J06.9) 08/31/2024 Essential hypertension (ICD-10 - I10) 09/19/2024 Essential hypertension (ICD-10 - I10) 10/05/2024 Essential hypertension (ICD-10 - I10) 01/18/2025 Essential hypertension (ICD-10 - I10) 02/27/2025 Viral upper respiratory tract infection (ICD-10 - J06.9) 03/04/2025 Viral upper respiratory tract infection (ICD-10 - J06.9) 03/04/2025 Hyperlipidemia, unspecified (ICD-10 - E78.5) 02/27/2025 Hyperlipidemia, unspecified (ICD-10 - E78.5) 01/18/2025 Hyperlipidemia, unspecified (ICD-10 - E78.5) 02/27/2025 Metabolic disorder, unspecified (ICD-10 - E88.9) 03/04/2025 Metabolic disorder, unspecified (ICD-10 - E88.9) 03/04/2025 Unspecified abdominal hernia without obstruction or gangrene (ICD-10 - K46.9) 02/27/2025 Unspecified abdominal hernia without obstruction or gangrene (ICD-10 - K46.9) 09/20/2024 Other CancelRx Response got Denied on 2024-09-20 10:26:52 for 'Spironolacto ne 25 MG Tablet'Pharma cy Notes: Unable to Cancel Rx. Please contact Pharmacy CancelRx Response got Denied on 2024-09-20 10:26:52 for 'Spironolacto ne 25 MG Tablet'Pharma cy Notes: Unable to Cancel Rx. Please contact Pharmacy CancelRx Response got Denied on 2024-09-20 10:26:52 for 'Spironolacto ne 25 MG Tablet'Pharma cy Notes: Unable to Cancel Rx. Please contact Pharmacy CancelRx Response got Denied on 2024-09-20 10:26:52 for 'Spironolacto ne 25 MG Tablet'Pharma cy Notes: Unable to Cancel Rx. Please contact Pharmacy CancelRx Response got Denied on 2024-09-20 10:26:52 for 'Spironolacto ne 25 MG Tablet'Pharma cy Notes: Unable to Cancel Rx. Please contact Pharmacy CancelRx Response got Denied on 2024-09-20 10:26:52 for 'Spironolacto ne 25 MG Tablet'Pharma cy Notes: Unable to Cancel Rx. Please contact Pharmacy CancelRx Response got Denied on 2024-09-20 10:26:52 for 'Spironolacto ne 25 MG Tablet'Pharma cy Notes: Unable to Cancel Rx. Please contact Pharmacy CancelRx Response got Denied on 2024-09-20 10:26:53 for 'Spironolacto ne 25 MG Tablet'Pharma cy Notes: Unable to Cancel Rx. Please contact Pharmacy CancelRx Response got Denied on 2024-09-20 10:26:53 for 'Spironolacto ne 25 MG Tablet'Pharma cy Notes: Unable to Cancel Rx. Please contact Pharmacy CancelRx Response got Denied on 2024-09-20 10:26:53 for 'Spironolacto ne 25 MG Tablet'Pharma cy Notes: Unable to Cancel Rx. Please contact Pharmacy CancelRx Response got Denied on 2024-09-20 10:26:53 for 'Spironolacto ne 25 MG Tablet'Pharma cy Notes: Unable to Cancel Rx. Please contact Pharmacy PLAN OF TREATMENT Next Appt Details Provider Name:Damian Rodriguez , 03/22/2025 12:30:00 PM, [address] [place] [address], [place], [address],
--- OUTSIDE RECORDS SUMMARY | 2025-03-19 10:52 | XMS_ITS | Encounter Summary ---
Demographics Address [address] [place] [address] Mobile Phone Home Phone Preferred Language Khmer Marital Status Single Orthodox Affiliation Unknown Race White Ethnic Group Not or Lati no Author Organization [facility] Healthcare Address [address] [place] [address] Care Team Providers Care Or Rn Name Role Phone Khalif Reynolds MD Primary Care Provide r Chriss Hendrickson MD Unavailable [phone] Zaid Adams MD Unavailable [phone] Nadir Ross MD Unavailable [phone] Encounter Details Date Type Department Care Team (Late st Contact Info) Description 07/07/2022 Telephone [facility] Radiology [facility] [place] [address] [place] [address] Mellissa Junior RN Social History Tobacco Use Types Packs/Day [...] on file 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 Gender Identity Not on file Sexual Orientation Not on file documented as of this encounter Plan of Treatment Upcoming Encounters Date Type Department Care Team (Late Contact Info) Description 05/21/2025 Hospital Encounter [facility] Operating Room 1 [place] [address] Asad Aldrideg MD [address] [place] [address] Scheduled Procedures Name Priority Associated Diagnoses Date/Ti me XI REPAIR INCISIONAL HERNIA - LAPAROSCOPIC ROBOTIC ASSISTED RETRO-RECTUS APPROACH Incarcerated incisional hernia documented as of this encounter Visit Diagnoses Not on filedocumented in this encounter Care Teams Or Rn Relationship Specialty Start Date End Date Khalif Reynolds MD [address] [facility] [place] [address] [place] [address] PCP - General Internal Medicine 10/28/17 Chriss Hendrickson MD [address] [place] [address] [place] [address] Referring Physician Obstetrics and Gynecology 01/18/20 Zaid Adams MD [address] [place] [address] Referring Physician Gastroenterology 02/14/23 Nadir Ross MD [address] [place] [address] Consulting Physician Cardiovascular Disease 02/14/23 documented as of this encounter
--- OUTSIDE RECORDS SUMMARY | 2025-03-19 10:52 | XMS_ITS | Clinical Summary ---
Demographics Address [address] [place] [address] Home Phone Mobile Phone Email Address Preferred Language Unknown Marital Status Yazdanism Affiliation Unknown Race White Ethnic Group Unknown Author Organization [facility] Address [address] [facility] [address] Care Team Providers Care Consultant Name Role Phone Mar Reynolds MD Primary Care Provider Allergies Active Allergy Reactions Criticality Noted Date Comments Levofloxacin Rash Medium 11/22/2017 Sulfa (Sulfonamide Antibiotics) Rash Medium 07/2018 Medications ipratropium/al buterol sulfate (COMBIVENT INHALATION) Post-Proc q 6 hours. Active magnesium oxide 400 mg magnesium Tablet magnesium 400 mg (as magnesium oxide) tablet Take by oral route. Active allopurinoL (ZYLOPRIM) 100 mg tablet allopurinol 100 mg tablet 9 Active aspirin (ECOTRIN EC) 325 mg Tablet, Delayed Release (E.C.) aspirin 325 mg tablet,delayed release TAKE ONE TABLET BY MOUTH ONCE DAILY Active budesonide-for moterol (SYMBICORT) 160-4.5 mcg/actuation HFA Aerosol Inhaler Take 2 Puffs by inhalation. Active calcitRIOL (ROCALTROL) 0.25 mcg capsule calcitriol 0.25 mcg capsule 9 Active Cetirizine 10 mg Capsule every 24 hours. Act golden cholecalcifero l, Vitamin D3, (VITAMIN D3) 1,000 unit Capsule Take by mouth. Activ e clopidogrel (PLAVIX) 75 mg Tablet clopidogrel 75 mg tablet 9 Active dulaglutide (TRULICITY) 0.75 mg/0.5 mL Pen Injector Trulicity 0.75 mg/0.5 mL subcutaneous pen injector 9 Active fluticasone propionate (FLOVENT DISKUS) 100 mcg/actuation Disk with Device Take 1 Puff by inhalation. Active linaclotide (LINZESS) 290 mcg capsule Linzess 290 mcg capsule 9 Active montelukast (SINGULAIR) 10 mg tablet montelukast 10 mg tablet Active nitroglycerin (NITROSTAT) 0.4 mg Tablet, Sublingual nitroglycerin 0.4 mg sublingual tablet 9 Active potassium CHLORIDE (KLOR-CON) 20 mEq Packet potassium chloride 20 mEq oral packet One packet in water daily po Active rosuvastatin (CRESTOR) 20 mg tablet rosuvastatin 20 mg tablet 9 Active torsemide (DEMADEX) 100 mg tablet torsemide 100 mg tablet Take 1/2 bid 9 Active lisinopril (PRINIVIL) 2.5 mg tablet Take 2.5 mg by mouth daily. Active metoprolol succinate (TOPROL XL) 25 mg Extended Release 24 hour tablet Take 25 mg by mouth daily. Active albuterol HFA 90 mcg inhaler Take 2 Puffs by inhalation every 6 hours as needed for Shortness of Breath. Active spironolactone (ALDACTONE) 25 mg tablet Take 25 mg by mouth daily. Active insulin glargine,hum.r ec.anlog (TOUTRESA SOLOSTAR U-300 INSULIN SUBCUT) Inject by subcutaneous injection 2 times daily. 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 Family History Medical History Relation Name Comments Diabetes Brother 2 Dislocations Brother 2 Heart Disease Brother 2 Diabetes Sister 1 Diabetes Sister 2 Heart Disease Sister 2 Relation Name Status Comments Brother 1 Brother 2 Alive Brother 3 Alive Brother 4 Alive Brother 5 Alive Father Mother Sister 1 Alive Sister 2 Social History Tobacco Use Types Packs/Day Years Used Date Smoking Tobacco: Former Cigarettes 2 46 0 03/07/1965 - 03/07/2011 Smokeless Tobacco: Never Tobacco Cessation:Counseling Given: Not Answered Alcohol Use Standard Drinks/Week Comments Not Currently 0 (1 standard drink = 0.6 oz pur e alcohol) Comments No Sex and Gender Information Value Date Recorded Sex Assigned at Not on file Legal Sex Female 3:07 AM WRAPPER AND PRESERVER Gender Identity Not on file Sexual Orientation Not on file Last Filed Vital Signs Vital Sign Reading Time Taken Comments Blood Pressure 119/73 12/01/2022 2:00 PM WRAPPER AND PRESERVER Pulse 85 12/01/2022 2:00 PM WRAPPER AND PRESERVER Temperature 37.4 C (99.3 F) 12/01/2022 2:00 PM WRAPPER AND PRESERVER Respiratory Rate 14 12/01/2022 2:00 PM WRAPPER AND PRESERVER Oxygen Saturation 96% 12/01/2022 2:00 PM WRAPPER AND PRESERVER Inhaled Oxygen Concentration - - Weight 87.3 kg (192 lb 8 oz) 12/01/2022 2:00 PM WRAPPER AND PRESERVER Height 161.3 cm (5' 3.5 ) 07/31/2020 11:29 AM CD T Body Mass Index 33.56 07/31/2020 11:29 AM CDT Plan of Treatment Upcoming Encounters Date Type Department Care Team (Late st Contact Info) Description 05/28/2025 11:15 AM CDT Office Visit [facility] Oncology and Hematology [facility] [address] [facility] [address] [place] [address] Stephen Douglas MD [address] [facility] [address] [place] [address] Health Maintenance Due Date Last Done Comments DIABETES MICROALBUMIN ANNUAL SCREEN 1974 LDL CHOLESTEROL ANNUAL 1974 ZOSTER VACCINE (1 of 2) 1975 FIT-DNA Q 3 years 2001 FIT/FOBT Q 1 year 2001 Flex Sig/CT Colonography Q 5 years 2001 RSV VACCINE (60+ or ) (1 - Risk 60-74 years 1-dose series) 2016 PNEUMOCOCCAL VACCINE 50+ YEA RS (2 of 2 - PCV) 12/17/2016 12/17/2015 DIABETES ANNUAL FOOT EXAM 02/21/2019 02/21/2018 DIABETES ANNUAL RETINAL EXAM 03/31/2021, 03/31/2020, 03/07/2018, Additional history exists BREAST CANCER SCREENING 09/01/2021 09/01/20 20, 09/01/2020, 12/04/2018, Additional history exists DIABETES HBA1C Q 6 MONTHS 11/17/20222021, 01/26/2021, 11/25/2020, Additional history exists INFLUENZA VACCINE (#1) 2024 2, 09/07/2021, 08/27/2020, Additional history exists OSTEOPOROSIS SCREENING 08/20/2024 08/20/2019 DTAP/TDAP/TD VACCINES (2 - T d or Tdap) 07/19/2029 07/19/2019 COLORECTAL SCREENING 08/31/2029 08/31/2019, 08/31/2019, 08/31/2019 Colorectal Cancer Screening 08/31/2029 Insurance [address] [address] [facility] [address] [place] [id number] [facility] [address] [facility] [place] Care Teams Consultant Relationship Specialty Start Date End Date Mar Reynolds MD PCP - General Internal Medicine 02/13/19
--- OUTSIDE RECORDS SUMMARY | 2025-03-19 10:52 | XMS_ITS | Clinical Summary ---
Author Organization [facility] Physician Office Building [address] [place] [address] Care Team Providers Care Wash Oil Pump Operator Helper Name Role Phone Khalif Reynolds MD Primary Care Provide r Chriss Hendrickson MD Unavailable Zaid Adams MD Unavailable [phone] Nadir Ross MD Unavailable Allergies Active Allergy Reactions Criticality Noted Date Comments Doxycycline Hives Medium 12/12/2020 Levofloxacin Rash,Hives Medium 08/16/2014 Sulfa (Sulfonamide Antibiotics) Rash,Hives Medium 01/2014 Medications calcitRIOL (ROCALTROL) 0.25 mcg capsule Take [...] 2 sprays into each nostril every morning Active BD Ultra-Fine Meg Pen Needle 32 gauge x 5/32 needle Active allopurinoL (ZYLOPRIM) 300 mg tablet Take 1 tablet (300 mg total) by mouth every morning Active albuterol 0.63 mg/3 mL nebulizer solution Take 3 mL (0.63 mg total) by nebulization 2 (two) times a day Active multivit pivsedcs-yfwb-DJ -calcium (THERA-M) 9 mg iron-400 mcg tablet [...] tablet (40 mg total) by mouth daily 024 Active ipratropium-albu teroL (COMBIVENT RESPIMAT) 20-100 mcg/actuation inhalerIndicatio ns:Chronic Obstructive Pulmonary Disease with Bronchospasms Inhale 1 puff 4 (four) times a day as needed for wheezing 4 g 11 024 2024 Active budesonide-formo teroL (SYMBICORT) 160-4.5 [...] (05/18/2022): Added automatically from request for surgery [id number] Abdominal pain 05/17/2022 Ovarian cancer 05/16/2022 Overview [...] disease) 02/05/2019 Overview (04/14/2020): Stented 2013, 2014, 2019 Depression 02/05/2019 GERD (gastroesophageal reflux disease) [...] medicine Assessment & Plan (10/18/2024 1:36 PM LEAD EMBEDDED SOFTWARE ENGINEER): Continue PAP use with all sleep She [...] 11/22/2017 Assessment & Plan (11/22/2017 4:45 PM LEAD EMBEDDED SOFTWARE ENGINEER): Ultrasound performed ( see report ) No solid nodules that need attention are visualized Continue to watch, no indication for any intervention at this point. Subclinical hyperthyroidism 11/22/2017 Assessment & Plan (02/21/2018 3:49 PM CDT): Check TFT's Start Tapazole if indicated Otherwise, f/u in 6 m Assessment & Plan (11/22/2017 4:44 PM LEAD EMBEDDED SOFTWARE ENGINEER): Will check TFTs Stop PTU ( risk [...] care Assessment & Plan (10/18/2024 1:35 PM LEAD EMBEDDED SOFTWARE ENGINEER): Continue Symbicort 160/4.5 twice daily While she [...] 08/24/2016 Dyspnea on exertion 10/29/2015 Dizziness 09/17/2015 Encounters Date Type Department Care Team Description 03/07/2025 2:00 PM CDT Office Visit [facility] Pulmonary at [address] [place] [address] Elizabeth Barr, MENDEL Immunoglobulin G subclass deficiency (HCC) (Primary Dx); Moderate chronic obstructive pulmonary disease (HCC); Obstructive sleep apnea 03/01/2025 7:00 PM CDT - 03/01/2025 11:59 PM CDT Hospital Encounter [facility] 1 [place] [address] Obstructive sleep apnea Discharge Disposition: Discharge to home or self care 02/12/2025 9:30 AM CDT Office Visit [facility] Sleep Medicine at [place] [address] [facility] [address] [place] [address] Luli Devlin MD Obstructive sleep apnea (Primary Dx); Hypersomnia; Obesity, unspecified class, unspecified obesity type, unspecified whether serious comorbidity present 02/08/2025 9:30 AM CDT Office Visit [facility] Minimally Invasive Surgery [address] [place] [address] 12th [place], [place] [address] Asad Aldridge MD Incisional hernia, without obstruction or gangrene (Primary Dx); Malignant neoplasm of right ovary (HCC) 01/14/2025 Telephone [facility] Minimally Invasive Surgery [address] [facility] Medical Office Building [address] [place] [address] Asad Aldridge MD 01/14/2025 [facility]phone [facility] [id number] [place] [address] [address] [place] [address] Cat Villalba MD appointment schedule from Last 3 Months Immunizations Immunization Administration Dates Next Due Hep B, Unspecified 03/18/2023 Influenza, Quadrivalent, Hig h Dose, Preservative Free, Intrr 08/15/2022 Influenza, Quadrivalent, Spl it, Intramuscular 07/19/2019 Influenza, Quadrivalent, Spl it, Preservative Free, Intramuscular 08/27/2020,07/19/2019 Influenza, Trivalent, IM (MDV) 09/07/2021,2012 Pfizer Sars-Cov-2 Bivalent V accination (12+ YRS) 09/06/2022,03/01/2022 Pneumococcal Polysaccharide PPV23 12/17/2015 Sars-CoV-2, Unspecified 09/06/2022,03/01/2022, Tdap 07/19/2019 Surgical History Surgery Date Site/Laterality Comments FOOT SURGERY ganglion KNEE SURGERY Right TUBAL LIGATION PORT PLACEMENT CHEST >5 YEARS 07/09/2022 N/A HYSTERECTOMY PORT REMOVAL 05/03/2023 N/A Medical History Medical History Date Comments Asthma COPD (chronic obstructive pulmonary disease) (HC C) Hypertension Type 2 diabetes mellitus (HCC) Hyperthyroidism Kidney disease Heart palpitations Heart failure (HCC) Heart attack (HCC) Headache Liver disease Sleep apnea 2000-uses cpap Hyperlipidemia H/O blood clots Diabetes (HCC) CHF (congestive heart failure) (HCC) Irritable bowel syndrome Cancer (HCC) Ovarian cancer (HCC) Obesity Family History Medical History Relation Name Comments Cirrhosis Brother 1 Other Brother 2 internal bleedi ng Other Father bleeding hemorr hoids/ulcer Car Accident Mother Heart attack Sister Thyroid disease Sister Anesthesia problems Neg Hx Relation Name Status Comments Brother 1 Brother 2 Father Mother Sister Social History Tobacco Use Types Packs/Day Years Used Date Smoking Tobacco: Former Cigarettes 1.3 44 1 967 - 2010 Smokeless Tobacco: Never Tobacco Cessation:Counseling Given: Not [...] on file Legal Sex Female 12:59 PM LEAD EMBEDDED SOFTWARE ENGINEER Gender Identity Not on file Sexual Orientation Not on file Obstetrics History Para Term AB IAB SAB Ectopic Multiple Livin g Live Births 0 0 0 0 0 0 0 0 0 0 0 Last Filed Vital Signs Vital Sign Reading [...] st Contact Info) Description 05/21/2025 Hospital Encounter [facility] Operating Room 1 [place] [address] Asad Aldridge MD [address] [place] [address] Scheduled Procedures Name Priority Associated Diagnoses Date/Ti me XI REPAIR INCISIONAL HERNIA - LAPAROSCOPIC ROBOTIC ASSISTED RETRO-RECTUS APPROACH Incarcerated incisional hernia Health Maintenance Due Date Last Done Comments Albumin Creatinine Ratio, Urine 1955 Breast Cancer Screening-Mammogram 1955 Colon Cancer Screening-Colonoscopy 1955 Hepatitis C Screening 1955 Dilated Eye Exam 1955 Zoster Vaccine (1 of 2) 1975 Lung Cancer Screening 2006 Pneumococcal vaccine 65+ (2 of 2 - PCV) 12/17/2016 12/17/2015 Foot Exam 02/21/2019 02/21/2018 Depression Screening 09/05/2019 09/05/2018, 02/21/2018, 11/22/2017 Well Visit 65+ 2021 Hemoglobin A1C 11/17/2022 05/17/2022, 04/14/2020 Lipid Panel 05/17/2023 05/17/2022, 02/15/2018 Fall Risk Assessment 09/03/2023 09/03/2022 Covid-19 Vaccine (8 - 2024-2 5 season) 2024 09/06/2022, 09/06/2022, 03/01/2022, Additional history exists Osteoporosis Screening-Bone Density Scan 06/07/2025 06/07/2023, 09/21/2021, 08/25/2021 Influenza Vaccine (Season Ended) 2025 08/15/2022, 09/07/2021, 08/27/2020, Additional history exists eGFR 10/02/2025 10/02/2024, 05/15, 06/06/2022, Additional history exists DTaP/Tdap/Td Vaccine (2 - Td or Tdap) 07/19/2029 07/19/2019 Medical Devices Implanted Type Area Loss Prevention Officer Device Identifier Shelf Expiration Date Model / Serial / Lot [employer] Xcela Power Port 8fr [id number] - [id number] Implanted:Qty: 1 on 07/09/2022 at [facility] [employer] 01/05/2027 [id number] / / [id number] Procedures Procedure Name Priority Date/Time Associated Diagnosis Comments PSG (SIMPLE) Routine 03/05/2025 Obstructive sleep apnea COMPREHENSIVE METABOLIC PANEL Routine 10/02/2024 10:02 AM LEAD EMBEDDED SOFTWARE ENGINEER HEMOGLOBIN A1C Timed 05/17/2022 12:15 AM CDT LIPID PANEL Timed 05/17/2022 12:15 AM CDT from Last 3 Months or Most Recently Relevant to Health Maintenance Results * PSG (03/05/2025) Impressions Luli Devlin MD - 03/05/2025 SPLIT NIGHT POLYSOMNOGRAPHY History: Crissy Parham is a 69 y.o. female who presented for a baseline polysomnogram. Reason for sleep study: Obstructive sleep apnea, needs a new device [place] sleepiness score: 1 Weight: 189 lbs BMI: 34.66 Procedure: This overnight split night polysomnogram was performed with the fiber technologist in attendance. Patient is studied with [...] scored according to the criteria from The [place] Academy of Sleep Medicine (AASM) Manual for [...] Clinical correlation is recommended. Luli Devlin MD [facility] Sleep Medicine Narrative Luli Delvin MD - 03/05/2025 In lab for review us Luli Devlin MD SLEEP CENTER ORDERABLES Final Re sult * (ABNORMAL) Comprehensive metabolic panel (10/02/2024 10:02 AM LEAD EMBEDDED SOFTWARE ENGINEER) Glucose 130(H) 65 - 99 mg/dL [email or web address] Comment: Fasting reference interval For someone without known diabetes, a glucose value >125 mg/dL indicates that they may have diabetes and this should be confirmed with a follow-up test. BUN 15 7 - 25 mg/dL [facility] [place] [facility] Creatinine 1.01 0.50 - 1.05 mg/dL [facility] eGFR 61 > OR = 60 mL/min/1.7 3m2 [facility] [place] [facility] BUN/creat ratio SEE NOTE: 6 - 22 (calc) [facility] Comment: Not Reported: BUN and Creatinine are within reference range. Sodium 137 135 - 146 mmol/L [facility] [place] [facility] Potassium, pl 3.8 3.5 - 5.3 mmol/L [facility] Chloride 101 98 - 110 mmol/L [facility] CO2 26 20 - 32 mmol/L [facility] Calcium 9.4 8.6 - 10.4 mg/dL [facility] Protein, sr 6.8 6.1 - 8.1 g/dL [facility] [place] [facility] Albumin 4.1 3.6 - 5.1 g/dL [facility] GLOBULIN 2.7 1.9 - 3.7 g/dL (calc) [facility] [place] [facility] Alb/glob ratio 1.5 1.0 - 2.5 (calc) [facility] [place] [facility] Bilirubin, total 0.6 0.2 - 1.2 mg/dL [facility] Alk phos 95 37 - 153 U/L [facility] AST 18 10 - 35 U/L [facility] ALT (SGPT) 18 6 - 29 U/L [facility] 10/02/2024 10:0 2 AM LEAD EMBEDDED SOFTWARE ENGINEER 10/02/2024 10:02 AM LEAD EMBEDDED SOFTWARE ENGINEER [facility] Willie Peters MD LAB BLOOD ORDERABLES Fin al Result Performing Organization Address City/[facility] Co de Phone Number [facility] [address] [place] [address] * (ABNORMAL) Hemoglobin A1c (05/17/2022 12:15 AM CDT) Hgb A1C 6.0(H) 4.0 - 5.6 % [facility]ONATHAN SLOAN Estimated Average Glucose 126 mg/dL JONATHAN SLOAN Comment: The ADA recommends reporting an estimated Average Glucose (eAG) with all Hemoglobin A1c results using the equation derived from a study of 507 normal and diabetic adults. Minority populations were underrepresented and children were not included. (Diabetes Care 2020; 43(S1): S66-S76). The eAG is not equivalent to a fasting glucose. Blood 05/17/2022 12:1 5 AM CDT 05/17/2022 1:26 AM CDT [facility] LAB BLOOD ORDERABLES Fin al Result Performing Organization Address [facility] de Phone Number [facility] Department [place] [address] * Lipid panel (05/17/2022 12:15 AM CDT) Cholesterol 88 30 - 199 mg/dL [facility] Comment: Interpretive Data Ages < or = [...] revised on 2018. Triglycerides 100 <=149 mg/dL [facility] Comment: Interpretive Data Ages < or = [...] revised on 2018. HDL 42 >=40 mg/dL [facility] Comment: Interpretive Data Ages < or = [...] on 2018. LDL, calculated 26 <=129 mg/dL [facility] Comment: Interpretive Data Ages < or = [...] revised on 2018. Non-HDL Cholesterol 46 mg/dL [facility] Comment: Interpretive Data Ages < or = [...] last revised on 2018. Chol/HDL ratio 2 JONATHAN SLOAN Blood 05/17/2022 12:1 5 AM CDT 05/17/2022 1:26 AM CDT [facility] Willie Peters MD LAB BLOOD ORDERABLES Fin al Result JONATHAN SLOAN [facility] Department [place] [address] from Last 3 Months or Most Recently Relevant to Health Maintenance Insurance * Guarantor: Crissy Parham Account Type Relation to Patient Date of Phone Billing Address Personal/Family Self 1955 [address] [place] [address] [facility]V[employer]AGE IDPA * Guarantor: Crissy Parham Account Type Relation to Patient Date of Phone Billing Address Personal/Family Self 1955 [address] [place] [address] [employer]PA [facility] [employer] * Guarantor: Crissy Parham Account Type Relation to Patient Date of Phone Billing Address Personal/Family Self 1955 [address] [place] [address] [employer]PA [facility] [employer] Advance Directives For more information, please contact: [phone] * Full Code (Latest Code Status on File) Date Activated Date Inactivated Comments 05/03/2023 12:51 PM 05/04/2023 4:49 AM * Full Code Date Activated Date Inactivated Comments 09/03/2022 7:43 AM 09/04/2022 4:50 AM * Full Code Date Activated Date Inactivated Comments 07/09/2022 7:09 AM 07/10/2022 4:47 AM * Full Code Date Activated Date Inactivated Comments 05/16/2022 11:52 PM 05/18/2022 9:16 PM Care Teams Wash Oil Pump Operator Helper Relationship Specialty Start Date End Date Khalif Reynolds MD [address] [facility] [address] [place] [address] PCP - General Internal Medicine 10/28/17 Chriss Hendrickson MD [address] [place] [address] Referring Physician Obstetrics and Gynecology 01/18/20 Zaid Adams MD [address] [place] [address] Referring Physician Gastroenterology 02/14/23 Nadir Ross MD [address] [place] [address] Consulting Physician Cardiovascular Disease 02/14/23
--- OUTSIDE RECORDS SUMMARY | 2025-03-19 10:53 | XMS_ITS | Clinical Summary ---
Author Organization [facility] [employer] Address [employer] 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 This disclosure is being madepursuant to the Care Everywhere program and may not contain all information available regarding this patient. Last updated 18.[facility] [employer] Allergies Active Allergy Reactions Criticality Noted Date Comments Levofloxacin Rash Medium 11/22/2017 other [Other] Rash Medium 11/22/2017 Received name: Sulfa (sulfonamide Antibiotics) Medications * Be aware that medications may not be up to date on this document. Alwaysverify current medications with the patient. VENTOLIN HFA 108 (90 BASE) MCG/ACT inhaler Inhale 2 (two) puffs by mouth every 4 hours as needed 9 Active allopurinol (ZYLOPRIM) 100 MG tablet Take 3 (three) tablets by mouth once daily 9 Active ASPIRIN 81 PO Take 81 mg by mouth once daily Active budesonide-for moterol (Symbicort) 160-4.5 MCG/ACT inhaler Inhale 2 (two) puffs by mouth 2 times daily Active calcitriol (ROCALTROL) 0.25 MCG capsule Take 1 (one) capsule by mouth once daily 9 Active cetirizine (ZYRTEC) 10 MG tablet Take 1 (one) tablet by mouth once daily Active clopidogrel (PLAVIX) 75 MG tablet Take 75 mg by mouth once daily 9 Active TRULICITY 0.75 MG/0.5ML injection Inject 0.75 mg subcutaneously every 7 days 9 Active fluticasone propionate (FLONASE) 50 MCG/ACT nasal spray [place] 2 (two) sprays into each nostril once daily 9 Active COMBIVENT RESPIMAT 20-100 MCG/ACT inhaler Inhale 1 (one) puff by mouth 4 times daily 9 Active albuterol-ipra tropium (DUO-NEB) 0.5-2.5 (3) MG/3ML nebulizer solution Inhale by mouth every 6 hours Active LINZESS 290 MCG capsule Take 1 (one) capsule by mouth daily before breakfast 9 Active lisinopril (PRINIVIL; ZESTRIL) 2.5 MG tablet Take 1 (one) tablet by mouth once daily 9 Active metoprolol tartrate (LOPRESSOR) 25 MG tablet Take 1 (one) tablet by mouth 2 times daily Active montelukast (SINGULAIR) 10 MG tablet Take 1 (one) tablet by mouth once daily Active potassium chloride ER (Klor-Con) 10 MEQ tablet Take 2 (two) tablets by mouth 2 times daily Active raNITIdine (ZANTAC) 150 MG tablet Take 150 mg by mouth 2 times daily Active rosuvastatin (CRESTOR) 20 MG tablet Take 1 (one) tablet by mouth at bedtime 9 Active tiotropium (Spiriva) 18 MCG inhalation capsule Inhale 1 (one) capsule by mouth once daily 9 Active torsemide (DEMADEX) 100 MG tablet Take 0.5 (one-half) tablet by mouth once daily 9 Active spironolactone (ALDACTONE) 25 MG tablet Take 1 (one) tablet by mouth once daily Active glimepiride (AMARYL) 2 MG tablet Take 1 (one) tablet by mouth daily with breakfast 0 Active nizatidine (AXID) 300 MG capsule Take 1 capsule by mouth once daily 30 capsule 5 0 Active Docusate Sodium (DSS) 100 MG Take 1 capsule by mouth once daily 2 Active gabapentin (Neurontin) 100 MG capsule Take 1 (one) capsule by mouth once daily 3 Active levothyroxine (Synthroid) 25 MCG tablet Take 1 (one) tablet by mouth once daily 2 Active nitroGLYCERIN (Nitrostat) 0.4 MG tablet Dissolve 1 (one) tablet under the tongue as needed Active ondansetron (Zofran) 8 MG tablet Take 1 (one) tablet by mouth every 8 hours as needed 2 Active pantoprazole EC (Protonix) 40 MG tablet Take 1 (one) tablet by mouth once daily 2 Active polyethylene glycol 3350 (Miralax) 17 GM/SCOOP powder Take 17 (seventeen) g by mouth 2 times daily 2 Active prochlorperazi ne (Compazine) 10 MG tablet Take 1 (one) tablet by mouth every 6 hours as needed 2 Active sennosides (Senokot) 8.6 MG tablet Take 1 (one) tablet by mouth 2 times daily 2 Active Insulin Glargine, 1 Unit Dial, (Kalyn SoloStar) pen INJECT UP TO 12 UNITS IN MORNING AND 14 UNITS AT BEDTIME x 90 DAYS 1 Active denosumab (Prolia) 60 MG/ML SC injection Inject 1 mL subcutaneously once EVERY 6 MONTHS Active empagliflozin (Jardiance) 10 MG tablet Take 1 (one) tablet by mouth once daily Active Active Problems Problem Noted Date Diagnosed Date Ovarian cancer 06/25/2022 Overview (02/07/2023): STEVE/BSO May 2022, then chemotherapy Diabetic neuropathy 01/14/2020 Hyperthyroidism 01/14/2020 Subclavian steal syndrome 01/14/2020 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, previously known as NAFLD) 02/05/2019 Overview (02/11/2025): 08/14/18 CT w/o contrast: NAFLD 05/07/19 Fibroscan CAP 321, LSM 9.4 kPa 01/14/20 Fibroscan CAP 323, LSM 10.5 kPa 02/07/23 Fibroscan CAP 301, LSM 5.7 kPa 02/13/24 Fibroscan CAP 281, LSM 4.6 kPa 02/11/25 Fibroscan CAP 285, LSM 5.3 kPa Obesity 02/05/2019 Hypertension 02/05/2019 COPD (chronic obstructive pulmonary disease) Type 2 diabetes mellitus 02/05/2019 GERD (gastroesophageal reflux disease) 9 Overview (02/05/2019): EGD 10/19/17 CAD (coronary artery disease) 02/05/2019 Overview (01/14/2020): Stented 2013, 2015, 2018 Osteoarthritis 02/05/2019 Hyperlipidemia 02/05/2019 Gout 02/05/2019 Migraine 02/05/2019 IBS (irritable bowel syndrome) 02/05/2019 Overview (02/05/2019): Constipation Allergic rhinitis 02/05/2019 Anemia 02/05/2019 CKD (chronic kidney disease) 02/05/2019 Vitamin D deficiency 02/05/2019 Depression 02/05/2019 JASE (obstructive sleep apnea) 02/05/2019 Overview (02/05/2019): CPAP since about 2016 Asthma 05/26/2017 Encounters Date Type Department Care Team Description 02/11/2025 8:30 AM CDT Office Visit [facility] [address] [facility], [place] [phone] None, Physician Zaid Randolph MD 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, previously known as NAFLD) (Primary Dx) 02/11/2025 8:00 AM CDT Procedure visit [facility] - [facility] [address] [facility], [place] [phone] None, Physician ERIS (metabolic dysfunction associated steatotic liver disease, previously known as NAFLD) 02/11/2025 Travel from Last 3 Months Immunizations Immunization Administration Dates Next Due HEP B VACCINE ADOL/ADULT 2 DOSE 04/14/2023 Social History Tobacco Use Types Packs/Day Years Used Date Smoking Tobacco: Former Cigarettes 2 46 Smokeless Tobacco: Never Tobacco Cessation:Counseling Given: Not Answered Comments:QUIT 9 YEARS AGO Alcohol Use Standard Drinks/Week Comments Yes 0 (1 standard drink = 0.6 oz pure alcohol) HEAVY IN PAST, QUIT-1990. 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 Gender Identity Not on file Sexual Orientation Not on file Last Filed Vital Signs Vital Sign Reading Time Taken Comments Blood Pressure 121/54 02/11/2025 8:23 AM CDT Pulse 75 02/11/2025 8:23 AM CDT Temperature 36.1 C (97 F) 02/13/2024 8:21 AM CDT Respiratory Rate 20 02/07/2023 8:39 AM CDT Oxygen Saturation 94% 02/11/2025 8:23 AM CDT Inhaled Oxygen Concentration - - Weight 84.4 kg (186 lb) 02/11/2025 8:23 AM CDT Height 157.5 cm (5' 2 ) 02/07/2023 8:39 AM CDT Body Mass Index 34.02 02/07/2023 8:39 AM CDT Plan of Treatment Health Maintenance Due Date Last Done Comments BONE DENSITY TESTING 1955 COLOGUARD (AGES 45-75) - COLON CA SCREENING [address] COLONO[address]APHY - COLON CA SCREENING 1955 FIT - COLON CA SCREENING 1955 FLEX SIG - COLON CA SCREENING 1955 DTAP/TDAP/TD VACCINES (1 - Tdap) 1975 PNEUMOCOCCAL VACCINE 50+ (1 of 2 - PCV) 1975 ZOSTER VACCINE (1 of 2) 2006 Respiratory Syncytial Virus (RSV) Vaccine Pt: or over 60 yrs (1 - Risk 60-74 years 1-dose series) 2016 DIABETES RETINOPATHY SCREENING 02/05/2019 DIABETES-FOOT EXAM WITH MONOFILAMENT 02/05/2019 MAMMOGRAM 03/15/2020 03/15/2018 DIABETES-HGB A1C 11/17/2022 05/17/2022, 01/11/2020 HEPATITIS B VACCINE (2 of 3 - 19+ 3-dose series) 05/12/2023 04/14/2023 DIABETES-SERUM CREATININE 06/10/20232021, 06/07/2022, 06/06/2022, Additional history exists COVID-19 VACCINE ( season) 2024 09/06/2022, 09/06/2022, 03/01/2022, Additional history exists DEPRESSION SCREENING 11/14/2024 DIABETES - URINE PROTEIN SCREENING 11/14/2024 MEDICARE AWV CALENDAR YEAR 2024 INFLUENZA VACCINE (Season Ended) 2025 09/07/2021, 08/27/2020, 07/19/2019, Additional history exists COLONOSCOPY - COLON CA SCREENING 08/31/2029 08/31/2019 Colorectal Cancer Screening 08/31/2029 HEPATITIS C SCREENING Completed 02/26/2019 HIB VACCINE Aged Out No longer eligi ble based on patient's age to complete this topic HPV VACCINE Aged Out No longer eligi ble based on patient's age to complete this topic MENINGOCOCCAL (Group B) VACCINE SHARED DECISION-MAKING Aged Out No longer eligible based on patient's age to complete this topic MENINGOCOCCAL GROUPS A/C/Y/W VACCINE Aged Out No longer eligible based on patient's age to complete this topic Goals Goal Patient Goal Type Associated Problems Recent Progress Patient-Stated? 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 Procedure explained. Date of Exam: 02/11/2025 Liver Stiffness: (LSM, kPa) median: 5.3 IQR/Median% (ideally < 30%): 8% CAP (controlled attenuation parameter): 285 Technical Difficulty: None Ordering Provider: Dr. Adams Phone Fax Fibroscan interpretation: I have personally reviewed the Fibroscan report and associated tracings. The calculated Liver Stiffness Measurement (LSM, kPa) indicates that: The probability of advanced liver fibrosis is: low. The loss of ultrasound signal, (controlled attenuation parameter, CAP [dB/m]), indicates that the probability of hepatic steatosis is: high. Zaid Adams MD The following criteria are used to indicate the probability of advanced (stage 3-4) fibrosis: < 7.0 kPa: low 7.0-8.9 kPa: low to moderate 9.0-14.9 kPa: moderate 15-20 kPa: high > 20 kPa: very high Liver stiffness > 12 kPa is associated with an increased risk of cirrhosis-related complications over the next 3-5 years (Boabdulazizier, 202). Liver stiffness > 20 kPa is also associated with a high probability of complications of portal hypertension including varices and ascites. Liver stiffness > 50 kPa is associated with a high risk of variceal bleeding. These interpretations are based on the following published data: Jovana J, Hagstr m H, Ekstedt M, Florian C, Bonacci M, Cure S, Ampuero J, Nasr P, Tallab L, Canivet CM, Kelivia S, S ncjoyce Y, Franco E, Irina A, Randy M, Laura J, Orly A and Cuong-Vic M. Non-invasive tests accurately stratify patients with NAFLD based on their risk of liver-related events. J Hepatol (2021) 76: 4960-3723. Sandar PJ, Florence M, Beth M, et al. Accuracy of FibroScan controlled attenuation parameter and liver stiffness measurement in assessing steatosis and fibrosis in patients with nonalcoholic fatty liver disease. Gastroenterology 2019;156:7928-3838. Sharif MS, Rubin R, Van Gera ML, et al. Vibration-controlled transient elastography to assess fibrosis and steatosis in patients with nonalcoholic fatty liver disease. Clin Gastroenterol Hepatol 2019;17:156-163. Note that scores have been developed that incorporate the Fibroscan liver stiffness measurement from large cohorts of patients with liver biopsies to further refine the ability of Fibroscan to identify patients with MASH and advanced fibrosis. These include the FAST (Fibroscan-AST) score (Connor, 2021) and the Agile3+ and Agile4 scores (Shira, 2022; Jane, 2023). Connor TA, Joe ARMSTRONG, Kenzie M, Juan A, et al. Validation of the accuracy of the FAST score for detecting patients with at-risk nonalcoholic steatohepatitis (WILCOX) in a [place] cohort and comparison to other non-invasive algorithms. PLoS ONE (2021) 17: [id number]. Shira GARCIA, Gavin J, Youncooper ZM, et al. Enhanced diagnosis of advanced fibrosis and cirrhosis in individuals with NAFLD using FibroScan-based Agile scores. J Hepatol (2022) 78: 247-259. Jane et al. Vibration-controlled transient elastography scores to predict liver-related events in steatotic liver disease. OLEKSANDR (2023) 331: 0825-4675 Fibroscan LSM can also be used with laboratory parameters without formulas to assess prognosis. According to the Baveno-VII criteria (Leyva, 2021), Fibroscan LSM <=15 kPa plus a platelet count of >=[id number]/L rules out clinically significant portal hypertension (sensitivity and negative predictive value >90%) in patients with compensated advanced chronic liver disease. Leyva R, Oz J, Carrington-Lexus G, Shima T, David Lino on behalf of the Baveno VII Faculty. Baveno VII--Renewing consensus in portal hypertension. J Hepatol (2021) 76: 959-974 Assessing the likelihood of advanced fibrosis in patients with intermediate liver stiffness measurement (LSM) by Fibroscan (e.g., 8-15 kPa) can be improved by also calculating the FIB-4 score (Jagdish et al. Hepatology Communications 2019;3:3881-8003) or NAFLD Fibrosis score (Turcios et al. Clinical Gastroenterology and Hepatology 2019;17:7565-2186 using routine clinical data. Notes: 1. Fibroscan cannot reliably identify earlier stages of fibrosis (ie distinguish F0 from F1 and F2) and thus a histologic stage cannot be predicted from the Fibroscan reading. 2. Liver stiffness can be increased by factors other than fibrosis including passive congestion, infiltrative processes, active alcoholism, recent moderate alcohol consumption in the 2 weeks before the exam, biliary obstruction and marked inflammation. The interpretation of the Fibroscan result provided above may not have taken such clinical factors into account. 3. Identifying steatosis by an elevated CAP score (> 250 db/m) is useful for establishing a diagnosis of steatotic liver disease. However the severity of steatosis does not correlate with liver related outcomes. Disease etiology also influences Fibroscan cutoff values for fibrosis stages and the following cutoffs have been proposed (Liam et al, Clin Gastro Hepatol 2015; 13:27-36): Cutoffs for Stage 3 and Stage 4 fibrosis respectively: Hepatitis B: >9 and >11.7 kPa Hepatitis C: >9.5 and >12.5 kPa HCV-HIV: >11 and >14 kPa Cholestatic liver diseases: >10 and >17.9 kPa MASLD/MASH: >10 and >14 kPa CAP estimates of steatosis: normal <200 dB/m mild 200 to 250 dB/m moderate 250-290 dB/m substantial > 290 dB/m (Note that Fibroscan is not a quantitative measure of liver fat.) These criteria are estimates and may change as additional supporting data becomes available. (This additional interpretive data was last updated 11/16/24.) [email or web address] Zaid Randolph MD PROCEDURE/MINOR PATEL RGICAL ORDERABLES Final Result * (ABNORMAL) COMP MET PANEL (EXTERNAL RESULT ENTRY) (01/11/2020) Glucose (EXTERNAL) 86 70 - 99 mg/dL Sodium (EXTERNAL RESULT) 138 137 - 145 mmol/L Potassium (EXTERNAL RESULT) 3.4(A) 3.5 - 5.1 mmol/L Chloride (EXTERNAL RESULT) 95(A) 98 - 107 mmol/L CO2 (EXTERNAL) 29 22 - 30 mmol/L Calcium (EXTERNAL RESULT) 9.5 8.4 - 10.2 mg/dL Anion Gap (EXTERNAL RESULT) 17.4 14 - 22 mmol/L BUN (EXTERNAL RESULT) 29(A) 8 - 19 mg/dL Creatinine (EXTERNAL RESULT) 1.11 0.66 - 1.25 mg/dl Alkaline Phosphatase (EXTERNAL RESULT) 143(A) 38 - 126 U/L ALT (EXTERNAL RESULT) 35 0 - 35 U/L AST (EXTERNAL RESULT) 41(A) 15 - 37 U/L Protein Total (EXTERNAL RESULT) 6.9 6.3 - 8.2 gm/dL Albumin (EXTERNAL RESULT) 4.2 3.0 - 4.4 gm/dL Bilirubin Total (EXTERNAL RESULT) 0.50 0.20 - 1.30 mg/dL eGFR MDRD (EXTERNAL RESULT) 50(A) >60 mL/min/1.7 3m2 eGFR (EXTERNAL) Blood BLOOD SPECIMEN / Unknown 01/11/2020 Historical Provider MD LAB - CHEMISTRY ORDERABLE S Final Result * (ABNORMAL) HEMOGLOBIN A1C (EXTERNAL RESULT ENTRY) (01/11/2020) Hemoglobin A1c (EXTERNAL RESULT) 7.4(A) 4.0 - 6.0 % Blood BLOOD SPECIMEN / Unknown 01/11/2020 [facility] Provider MD LAB - CHEMISTRY ORDERABLE S Final Result * HEPATITIS SCREEN ACUTE (EXTERNAL RESULTS) (02/26/2019 3:06 PM CDT) Hepatitis A Virus Antibody IgM (EXTERNAL RESULT) NONREACTIVE NONREACTIVE Hepatitis B Core Virus Antibody IgM (EXTERNAL RESULT) NONREACTIVE NONREACTIVE Hepatitis B Virus Surface Antigen (EXTERNAL RESULT) NONREACTIVE NONREACTIVE Hepatitis C Antibody Screen (EXTERNAL RESULT) 0.01 0.00 - 0.99 Hepatitis C Virus Index (EXTERNAL) Blood 02/26/2019 3:06 PM CDT us Historical Provider LAB - CHEMISTRY ORDERABLE S Final Result from Last 3 Months or Most Recently Relevant to Health Maintenance Insurance MEDICAID - OUT OF STATE [facility] MANAGED MEDICARE ADV * Guarantor: Crissy Parham Account Type Relation to Patient Date of Phone Billing Address Personal/Family Self 1955 [facility] [address] [place] [address] [facility] MANAGED MEDICARE ADV [facility] MEDICAID 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
--- NOTE | 2025-03-19 12:23 | ED_ITS ---
HPI - Extremity Injury (Upper) General Chief Complaint: Extremity Injury, Upper Stated Complaint: left shoulder pain after fall Time Seen by Provider: 03/19/25 11:57 Source: patient Mode of arrival: ambulatory Limitations: no limitations History of Present Illness HPI narrative: This is a 69-year-old female, no significant past medical history, presents emergency department complaining of left shoulder pain after a ground level fall. The patient states last night she tripped on a [id number], landing on the right shoulder. She complains of dull, moderate left shoulder pain She denies head injury or loss of consciousness. She denies chest pain, shortness of breath or palpitations. She has no other complaints at this time. Related Data Allergies Allergy/AdvReac Type Severity Reaction Status Date / Time doxycycline Allergy Mild Rash Verified 03/19/25 10:32 levofloxacin (From Levaquin) Allergy Mild Rash Verified 03/19/25 10:32 Sulfa (Sulfonamide AdvReac Mild Rash Verified 03/19/25 10:32 Antibiotics) Review of Systems Review of Systems: All systems reviewed & are unremarkable except as noted in HPI and below PMFSH Past Medical History Medical History Hyperthyroidism Diabetes type 2, uncontrolled Surgical History Surgical History No significant past surgical history Family History Family History Other Cerebrovascular accident Depression Diabetes mellitus Family history of arthritis Family history of cardiovascular disease Family history of congestive heart failure Hypertension Social History Social History Smoking status: Never smoker Alcohol intake: never Exam Narrative: GENERAL: Well-developed, well-nourished, and in no acute distress. HEAD: Normocephalic, atraumatic. EYES: PERRLA and EOMI. NECK: Supple. No midline spine tenderness to palpation, no step-off or crepitus CHEST: Clear to auscultation. No respiratory distress. No wheezes rales or rhonchi HEART: Regular rate and rhythm. No murmur heard. Normal peripheral pulses. ABDOMEN: Soft, nontender, nondistended, normal active bowel sounds. EXTREMITIES: There is no noted deformity of the left shoulder. Tender palpation over the 3rd left trapezius and lateral shoulder. Range of motion of the left shoulder limited on abduction, anterior and posterior rotation by pain. Range of motion of the elbow, hand and wrist intact. Normal range of motion of all other extremities. No edema. SKIN: Warm, dry, no rash. NEURO: Alert and oriented x3. No focal deficit. Moving all 4 limbs spontaneously PSYCH: Normal mood and affect. Course Course Emergency Course: 12:23 - X-rays of left shoulder not concerning for fracture or dislocation. Range of motion limited by pain without other changes concerning for humerus fracture. I suspect contusion of the shoulder. Will discharge with lidocaine patches, Tylenol and recommendation for shoulder exercises and primary care follow-up. I discussed the findings and recommendations with the patient. Discussed return and emergency precautions including signs/symptoms of septic arthritis and neurovascular compromise. The patient voiced understanding and agreement with the plan. All questions answered to her satisfaction. Vital Signs Vital signs: Vital Signs Temperature 97.8 F 03/19/25 10:09 Pulse Rate 74 03/19/25 10:09 Respiratory Rate 16 03/19/25 10:09 Blood Pressure 129/64 03/19/25 10:09 Pulse Oximetry 94 03/19/25 10:09 Oxygen Delivery Room Air 03/19/25 10:09 Temperature 97.8 F 03/19/25 10:09 Pulse Rate 74 03/19/25 10:09 Respiratory Rate 16 03/19/25 10:09 Blood Pressure 129/64 03/19/25 10:09 Pulse Oximetry 94 03/19/25 10:09 Oxygen Delivery Room Air 03/19/25 10:09 MDM - Extremity Injury (Upper) MDM Narrative Medical decision making narrative: Plan: Imaging, pain control, reassess Differential Diagnosis Differential diagnosis: Likely dislocation of shoulder, fracture of clavicle and other (Humerus fracture, shoulder separation, other) Discharge Plan Discharge Clinical Impression: Acute pain of left shoulder Contusion of left shoulder Qualifiers: Encounter type: initial encounter Qualified Code(s): S40.012A - Contusion of left shoulder, initial encounter Patient Disposition: Home Condition: Stable Instructions: Antibiotic Form, Contusion in Adults (ED), Rotator Cuff Injury Exercises (DC) Additional Instructions: You were seen in the emergency department. X-ray of the shoulder were not concerning for fracture or dislocation. I recommend lidocaine patches, Tylenol, rest, gentle exercises and follow-up with your primary care doctor. If you develop weakness/numbness in the arm, fevers with severe joint pain in the arm appears blue/cold, or if you have other emergent concerns for life, limb, or eyesight, return to the emergency department. Patient Language: Kinyarwanda Prescriptions: New lidocaine 5 % adhesive patch,medicated 1 patch topical DAILY Qty: 30 0RF Rx Instructions: leave on most painful area for up to 12 hrs Follow-up/Referrals: Rodolfo,MD Mar [Primary Care Provider] - 2 Weeks Time of Disposition: 12:23
--- OUTSIDE RECORDS SUMMARY | 2025-03-19 12:25 | XMS_ITS | CONTINUITY OF CARE DOCUMENT ---
Author Name morales nielsen Address Unknown Organization [facility] Address [address] [place] [address] Phone [phone] Care Team Providers Care Carpenter Labor Supervisor Name Role Phone Vandana COLUNGA, Nadir Bird Unavailable Lorraine COLUNGA, Premal H Unavailable [phone] MARIA A PINTO MD Unavailable [phone] PROBLEMS Condition Status Date Provider Notes Chronic [...] In-person encounter Office Visit Nadir Ross MD [facility] - In-person encounter Office Visit Nadir Ross MD [facility] Cardiology examination - In-person encounter Office Visit Nadir Ross MD [facility] - In-person encounter Office Visit Nadir Ross MD [facility] - In-person encounter Office Visit Nadir Ross MD [facility] - In-person encounter Office Visit Nadir Ross MD [facility] - In-person encounter Office Visit Nadir Ross MD [facility] - In-person encounter Office Visit Nadir Ross MD [facility] - In-person encounter Office Visit Nadir Ross MD [facility] - In-person encounter Office Visit Nadir Ross MD [facility] - In-person encounter Office Visit Nadir Ross MD [facility] Ovarian cancer - In-person encounter Office Visit Nadir Ross MD [facility] - In-person encounter Office Visit Nadir Ross MD [facility] - In-person encounter Office Visit Nadir Ross MD [facility] - In-person encounter Office Visit Nadir Ross MD [facility] - In-person encounter Office Visit Nadir Ross MD [facility] - In-person encounter Office Visit Nadir Ross MD [facility] - In-person encounter Office Visit Nadir Ross MD [facility] - In-person encounter Office Visit Nadir Ross MD [facility] Preop cardiovasc. examination - In-person encounter Office Visit Nadir Ross MD [facility] Hypothyroidism - In-person encounter Office Visit Nadir Ross MD [facility] - In-person encounter Office Visit Chang Olivas MD [facility] - In-person encounter Office Visit Nadir Ross MD [facility] - In-person encounter Office Visit Nadir Ross MD [facility] Abnormal cardiovascular stress test - In-person encounter Office Visit Nadir Ross MD [facility] - In-person encounter Office Visit Nadir Ross MD [facility] - In-person encounter Office Visit Nadir Ross MD [facility] Weakness - muscular - In-person encounter Office Visit Nadir Ross MD [facility] - In-person encounter Office Visit Nadir Ross MD [facility] - In-person encounter Office Visit Nadir Ross MD [facility] - In-person encounter Office Visit Nadir Ross MD [facility] - In-person encounter Office Visit Nadir Ross MD [facility] - In-person encounter Office Visit Nadir Ross MD [facility] Mitral regurgitation - In-person encounter Office Visit Nadir Ross MD [facility] - In-person encounter Office Visit Nadir Ross MD [facility] - In-person encounter Office Visit Nadir Ross MD [facility] - In-person encounter Office Visit Nadir Ross MD [facility] CAD S/P PROMUS PREMIER STENT TO RCA (09/2015) - In-person encounter Office Visit Nadir Ross MD [facility] - In-person encounter Office Visit Nadir Ross MD [facility] Shortness of breathCOPDDyspnea on exertion - In-person encounter Office Visit Nadir Ross MD [facility] DizzinessSleep apnea - In-person encounter Office Visit Nadir Ross MD [facility] - In-person encounter Office Visit Nadir Ross MD [facility] - In-person encounter Office Visit Nadir Ross MD [facility] Chest pain-type to be determined - In-person encounter Office Visit Nadir Ross MD [facility] Peripheral Vascular DiseaseDiabetes, Type 2HypertensionHTN borderline - In-person encounter Office Visit Boston Banks MD [facility] Family History of CVA or Stroke:Family [...] Shetty blood pressure, systolic 100 mm[Hg] [facility], oximetry 95 % Bibiana [...] kLogic blood pressure, cuff size regular Fa [facility] blood pressure, diastolic 66 mm[Hg] Fa ith Najera blood pressure, systolic 98 mm[Hg] Jak [facility] oxygen saturation, oximetry 93 % Serena Najera [...] lder height E&M 64 [in_i] Mayela Gruenenfe formerly named [facility] Body Mass Index (Ratio) 33.64 kg/m2 Billy [...] blood pressure, diastolic 71 mm[Hg] Ca therine [place] blood pressure, systolic 160 mm[Hg] Cat herine [place] oxygen saturation, oximetry 93 % Sabrina Juancho respiratory rate E&M 16 /min Catheri ne [place] pulse rate 88 /min Sabrina Juancho weight E&M 232 [lb_av] Sabrina [place] blood pressure, cuff size regular Ca therine [place] height E&M 64 [in_i] Sabrina Juancho Body [...] Tonya Hutchison weight E&M 233 [lb_av] Tonya sancehz height E&M 64 [in_i] Tonya sanchez Body Mass Index (Ratio) 39.65 kg/m2 Jessica Ross MD pulse rate 134 /min [facility] weight E&M 231 [lb_av] [facility] height E&M 64 [in_i] [facility] respiratory rate E&M 16 /min [facility] Chanel Body Mass Index (Ratio) 40.16 kg/m2 Jessica Ross MD respiratory rate E&M 16 /min Tonsha Chanel blood pressure, resting Yes Tons mejia Chanel blood pressure, diastolic 84 mm[Hg] To nsha Chanel blood pressure, systolic 111 mm[Hg] Ton sha Chanel oxygen saturation, oximetry 95 % Tonsha Chanel pulse rate 93 /min Tonsha Chanel weight [...] blood pressure, diastolic 80 mm[Hg] Alexandr garcia [place] blood pressure, systolic 120 mm[Hg] Apryl Readby pulse rate 96 /min Mai [place] oxygen saturation, oximetry 97 % Mai [place]a respiratory rate E&M 18 /min Mai [place] blood pressure, cuff size regular Kr isadalberto Readby weight E&M 224 [lb_av] Mai [place] height E&M 64 [in_i] Mai [place] Body Mass Index (Ratio) 37.76 kg/m2 Jessica Ross MD blood pressure, diastolic 68 mm[Hg] Ki lleen Hartman blood pressure, systolic 122 mm[Hg] Charanjit stover Hartman oxygen saturation, oximetry 96 % Carlton Hartman respiratory rate E&M 16 /min Upperglade Hartman pulse rate 86 /min Carlton Hartman weight E&M 220 [lb_av] Upperglade Hartman height E&M 64 [in_i] Carlton Hartman [...] Body Mass Index (Ratio) 38.34 kg/m2 Lashae Folwer weight E&M 223.4 [lb_av] Laury bartlettmaria eugenia blood pressure, diastolic 77 mm[Hg] Ms perry Macedo blood pressure, systolic 134 mm[Hg] [...] s Brown weight E&M 219 [lb_av] Aneatris [facility] Body Mass Index (Ratio) 37.93 kg/m2 Anea javier [facility] blood pressure, diastolic 87 mm[Hg] An reyesris [facility] blood pressure, systolic 145 mm[Hg] Ane atris [facility] pulse rate 73 /min Aneatris [facility] oxygen saturation, oximetry 97 % Aneatris [facility] respiratory rate E&M 18 /min Aneatri s [facility] weight E&M 221 [lb_av] Aneatris [facility] Body Mass Index (Ratio) 35.70 kg/m2 Moran i Carline blood pressure, diastolic 60 mm[Hg] Ke rri [facility] blood pressure, systolic 112 mm[Hg] Elisabet ri [...] rafitaer height E&M 64 [in_i] Mayela Quintero formerly named [facility] blood pressure, diastolic 93 mm[Hg] An eatris [facility] blood pressure, systolic 134 mm[Hg] Ane atris [facility] Body Mass Index (Ratio) 39.86 kg/m2 Anea javier [facility] pulse rate 88 /min Aneatris [facility] oxygen saturation, oximetry 95 % Aneatris [facility] respiratory rate E&M 17 /min Aneatri s [facility] weight E&M 211 [lb_av] Aneatris [facility] height E&M 61 [in_i] [facility] Allergy Name Onset Date Reaction Criticality [...] 3.5-5.2 4 sodium, serum 141 mmol/L LinkLogic 360-326 5994/10/1 4 urea nitrogen/creatinine ratio, serum 20 LinkLogic [...] 3.5-5.2 3 sodium, serum 137 mmol/L [employer] 314-348 8020/07/2 3 urea nitrogen/creatinine ratio, serum 26 LinkLogic [...] 0-149 8 cholesterol, serum 123 mg/dL [facility] 140-601 4958 8 calcium, serum 9.7 mg/dL [facility] 8.7-10.3 8 carbon dioxide, venous blood 21 mmol/L [employer] 20-29 8 chloride, serum 101 mmol/L [facility] 96-106 8 potassium, serum 4.1 mmol/L [facility] 3.5-5.2 8 sodium, serum 141 mmol/L [facility] 297-073 1913 8 urea nitrogen/creatinine ratio, serum 21 LinkLogic [...] Estab. 8 platelet count 360 X10E3/UL [facility] [phone] 8 red blood cell distribution width 14.4 [...] 3.5-5.1 6 sodium, serum 138 mmol/L [facility] 408-168 1255/10/1 6 creatinine, serum 1.1 mg/dL LinkLogic 0.5-0.9 [...] cell distribution width, size density 52.1 fL [facility] - 7 immature granulocytes, percentage of total cells, blood 0.5 % [facility] nucleated red blood cells as percent of blood leukocytes 0.0 % [facility] - 7 red blood cell (erythrocyte) count, per high power field 0.0 10*3/UL [facility] - 7 eosinophils as percent of blood leukocytes 1.7 % [facility] - 7 neutrophils as percent of blood leukocytes 61.7 % [facility] Absolute Neutrophils 4.8 CELLS/UL [...] USE Medication Status Instructions Dates Provider Indications [facility] cetirizine 10 mg tablet completed Take 1 [...] 1 TABLET BY MOUTH TWICE DAILY 07/14 [facility] cholecalciferol (vitamin D3) 1,250 mcg (50,000 unit) [...] Nadir kern MD alcohol use no Nadir schnedier MD chewing tobacco use Current Nadir Ross [...] MD smoking, year quit 2010 Genevieve Hansenr SOFTWARE SALES CONSULTANT number of years as a smoker 47 a Genevieve Hansenr SOFTWARE SALES CONSULTANT smoking history, tot al pack/day 2 Genevieve Hansenr SOFTWARE SALES CONSULTANT cigarette use yes Genevieve Hilario er SOFTWARE SALES CONSULTANT alcohol use no Genevieve Sodle r SOFTWARE SALES CONSULTANT smoking status Former smoker Genevieve Saray leeer SOFTWARE SALES CONSULTANT social history E&M Patient is a former [...] Zahraa Louis smoking, date started 47 Zahraaivan Myers smoking history, tot al pack/day 2-3 ppd [...] chewing tobacco use Current Mayela Gr luz marinaenenfnorberter smoking, year quit 2010 Mayela Michelle granados [...] years as a smoker 47 a Sabrina [place] smoking, date started 47 Cather ine Juancho smoking history, tot al pack/day 2-3 ppd Sabrina Juancho cigarette use yes Sabrina [place] smoking status Former smoker Sabrina Ot is [...] Mayela Grjahnenfelder cigarette use yes Mayela [facility] smoking status Former smoker Mayela Bolanossherry caalelder [...] Foster smoking, date started 47 Nayeli schneider Fsoter smoking history, tot al pack/day 2-3 ppd [...] years as a smoker 47 a Tonya Hutchison smoking, date started 47 Nayeli Hutchison [...] Current Carlton Hartman smoking, year quit 2010 Cralton friedman number of years as a smoker [...] ms smoking status Former smoker Nae [facility] social history E&M Patient is a former smoker. s topped september 2011 pt had smoked for 46 yrs Smoking History: P atjet is a former smoker. Nadir Ross MD social history reviewed E&M revi ewed - no changes required Nadir Ross MD cigarette use yes Nae Blackman ms smoking status Former smoker Nae [facility] social history E&M Patient is a former [...] years as a smoker 47 a Mayela Mondragonminoger smoking, date started 47 Mayela Edwinelder smoking history, tot al pack/day 2-3 ppd Mayela Edwinelder cigarette use yes Mayela yusuf smoking status Former smoker Mayela Mondragonubaldo jacksoner social history E&M Patient is a [...] Mayela Proctorer cigarette use yes Mayela Pineda [facility] smoking status Former smoker Mayela caalelder alcohol use no Mayela Leon lder chewing tobacco use Current Mayela Giancarlo aguilaer smoking, year quit 2010 Mayela austinfeld number of years as a smoker 47 a Mayela Proctorer smoking, date started 47 Mayela Proctorer smoking history, tot al pack/day 2-3 ppd Mayela Hitesher cigarette use yes Mayela Pineda [facility] smoking status Former smoker Mayela caalelder social [...] Fan chewing tobacco use Current Erin zuletageno SOFTWARE SALES CONSULTANT alcohol use no Laury Oviedo nson smoking, [...] Nadir Ross MD alcohol use no Laury Ovideo nson smoking, year quit 2010 Laury Fowler [...] MD smoking, date started 1964 Aneatr is [facility] smoking, year quit 2010 Aneatris [facility] smoking history, tot al pack/day 3 Aneatris [facility] cigarette use yes Aneatris [facility] smoking status Former smoker Aneatris [facility] FUNCTIONAL STATUS Date Observation Value Provider HRA, [...] Payer name Policy type / Coverage type [place] red libertarian ID UHC COMPLETE CARE [id number] (PPO C-SNP) [employer] insurance PVPower [id number] [facility] Medicaid 1 [id number] ADVANCE DIRECTIVES Name Date DISCUSSED - NO DECISION MADE TREATMENT PLAN Date Name Performer [id number],C, d elen fatigue. G et sleep study [...] and should continue use. Nadir Ross MD [id number],C,U tilizes nebulizer. M ay be underlying reason for SOB. S ees pulmonary December 24, 2022 H er SOB has gotten worse although I think it is more related to COPD since it resolves with Ventelon Nadir Ross MD [id number],[place] s corey rodriguez for renal Nadir Ross MD [id number],C,D ocumented BP reading is from patient's home [...] mouth once a day Nadir Ross MD [id number],David Lino Dr. for hypothyroidism and diabetes. Check tele for arrhythmia. Nadir Ross MD [id number],david Lino tage IIIA low-grade ovarian cancer, arising [...] op follow up with Dr Cabrera at [facility]. Currently holding plavix and glimeperide for DM, continues with ASA at present September 24, 2022 s ees OCC THERAPY ASST ONC at [facility] Dr Cabrera and managed for right ovarian cancer March 25, 2023 D oing well overall. Energy levels good since completing chemo. July 08, 2023 S iteman for ovarian ca Nadir Ross MD [id number],C, N ovember 2021 c urrent cp is [...] without angina. On Aspirin. Nadir Ross MD [id number],C, B ilateral subclavian stenosis S/P revascularization. Pulses are intact bialterally. PROCESSING ASSISTANT Stent of the LEFT subclavian artery with [...] REcommended B12 pills 100mcg. Nadir Ross MD [id number],C, M ay be underlying reason for SOB. S ees pulmonary December 24, 2022 H er SOB has gotten worse although I think it is more related to COPD since it resolves with Ventelon Nadir Ross MD [id number],C, B ilateral subclavian stenosis S/P revascularization. Pulses are intact bialterally. PROCESSING ASSISTANT Stent of the LEFT subclavian artery with [...] dropping coffee cups again Nadir Ross MD [id number],C, C ONCLUSIONS: 1 . Normal left ventricular [...] it resolves with Ventelon Nadir Ross MD [id number],C, s tage IIIA low-grade ovarian cancer, arising [...] op follow up with Dr Cabrera at [facility]. Currently holding plavix and glimeperide for DM, continues with ASA at present September 24, 2022 s ees OCC THERAPY ASST ONC at [facility] Dr Cabrera and managed for right ovarian cancer March 25, 2023 D oing well overall. Energy levels good since completing chemo. July 08, 2023 S iteman for ovarian ca Nadir Ross MD [id number],C, N ovember 2021 c urrent cp is [...] without angina. On Aspirin. Nadir Ross MD [id number],C, F INDINGS: R t Upper Ext: Triphasic [...] u/s to re-evaluate flow and visualize L GROUT MACHINE TENDER which had a potential mobile plaque in past. Hx of subclavian stent and will check u/s LUE. Nadir Ross MD [id number],C, s s [facility] for renal Nadir Ross MD [id number],C,C ONCLUSIONS: 1 . Normal left ventricular systolic [...] epicardial f at pad. Nadir Ross MD [id number],S, N ovember 2021 c urrent cp is [...] without angina. On Aspirin. Nadir Ross MD [id number],C,B lood pressure at goal. Her updated medication [...] mouth once a day Candelario Jane NP [id number],C,N ovember 2021 c urrent cp is completley [...] without angina. On Aspirin. Candelario Jane NP [id number],C,s tage IIIA low-grade ovarian cancer, arising from [...] op follow up with Dr Cabrera at [facility]. Currently holding plavix and glimeperide for DM, continues with ASA at present September 24, 2022 s ees OCC THERAPY ASST ONC at [facility] Dr Cabrera and managed for right ovarian cancer March 25, 2023 D oing well overall. Energy levels good since completing chemo. Candelario Jane SOFTWARE SALES CONSULTANT [id number],C, F INDINGS: R t Upper Ext: Triphasic [...] u/s to re-evaluate flow and visualize L GROUT MACHINE TENDER which had a potential mobile plaque in past. Hx of subclavian stent and will check u/s LUE. Candelario Jane NP [id number],C,B ilateral subclavian stenosis S/P revascularization. Pulses are intact bialterally. PROCESSING ASSISTANT Stent of the LEFT subclavian artery with [...] LSO CHECK ARTERIAL ULTRASOUND OF CAMMIE Jane SOFTWARE SALES CONSULTANT [id number],C,C ONCLUSIONS: 1 . Normal left ventricular systolic [...] it resolves with Ventelon Nadir Ross MD [id number],C, M ay be underlying reason for SOB. S ees pulmonary December 24, 2022 H er SOB has gotten worse although I think it is more related to COPD since it resolves with Ventelon Nadir Ross MD [id number],C, L ikely related to obesity. S till [...] it resolves with Ventelon Nadir Ross MD [id number],C, s tage IIIA low-grade ovarian cancer, arising [...] op follow up with Dr Cabrera at [facility]. Currently holding plavix and glimeperide for DM, continues with ASA at present September 24, 2022 s ees OCC THERAPY ASST ONC at [facility] Dr Cabrera and managed for right ovarian cancer Nadir Ross MD [id number],S, P rior CAD stent RCA, no new [...] REMAINS ON ASA 81MG Nadir Ross MD [id number],S, L ikely related to obesity. S onesimo [...] No significant valvular abnormalities. Nadir Ross MD [id number],C, C ONCLUSIONS: 1 . Technically difficult study, [...] 2 020-06-30 09:31:19 CDT Nadir Ross MD [id number],C, S janie Siddiqi for hypothyroidism and diabetes. Check tele for arrhythmia. Nadir Ross MD [id number],C, s tage IIIA low-grade ovarian cancer, arising [...] op follow up with Dr Cabrera at [facility]. Currently holding plavix and glimeperide for DM, continues with ASA at present September 24, 2022 s ees OCC THERAPY ASST ONC at [facility] Dr Cabrera and managed for right ovarian cancer Nadir Ross MD [id number],C, P rior CAD stent RCA, no new CP September 24, 2022 c urrent cp is completley reproducible and is not related to cardiac issues Nadir Ross MD [id number],C, B ilateral subclavian stenosis S/P revascularization. Pulses are intact bialterally. PROCESSING ASSISTANT Stent of the LEFT subclavian artery with [...] metal stent, balloon expandable bare metal sten Naidr Ross MD [id number],C, F INDINGS: R t Upper Ext: Triphasic [...] in the upper ext. Nadir Ross MD [id number],C, P rior CAD stent RCA, no new CP Nadir Ross MD [id number],C,s tage IIIA low-grade ovarian cancer, arising from [...] op follow up with Dr Cabrera at [facility]. Currently holding plavix and glimeperide for DM, continues with ASA at present Nadir Ross MD [id number],C, F INDINGS: R t Upper Ext: Triphasic [...] Plan for UE angio. Nadir Ross MD [id number],C, L ikely related to obesity. S till sees pulmonary. Nadir Ross MD [id number],C, C ath 11/01/19 I MPRESSION: 1 . False positive stress. 2 . Patent subclavians B/L. 3 . Elevated SBP and LVDEP. Nadir Ross MD [id number],C,S he used to be on protnix, suspect [...] No significant valvular abnormalities. Nadir Ross MD [id number],C,P er PCP H er updated medication list [...] and 10 pm daily Nadir Ross MD [id number],S,Check stress nuc Nadir Ross MD [id number],C,L upper ex stent, pulses are equal, back to using foam cups. Will obtain US of L subclavain Nadir Ross MD [id number],S,P rior CAD stent RCA, has intemittent CP, will obtrain nuc stress Nadir Ross MD [id number],C, L ikely related to obesity. S till sees pulmonary. Nadir Ross MD [id number],C, d escribes fatigue. G et sleep study [...] and should continue use. Nadir Ross MD [id number],[place] C ath 11/01/19 I MPRESSION: 1 . False positive stress. 2 . Patent subclavians B/L. 3 . Elevated SBP and LVDEP. Nadir Ross MD [id number],C, S tays on ASA Plavix Nadir Ross MD [id number],C, B ilateral subclavian stenosis S/P revascularization. Pulses [...] ultrasound to eval patency Nadir Ross MD [id number],C, H er updated medication list for this [...] and 10 pm daily Nadir Ross MD [id number],C, C ONCLUSIONS: 1 . Technically difficult study, [...] 2 020-06-30 09:31:19 CDT Nadir Ross MD [id number],C, A ortogram performed demonstrated RSCA, prior PROCESSING ASSISTANT site, with 30% stenosis. LSCA two stents, both w/out significant ISR. Both patent. Nadir Ross MD [id number],C, W ILL GET HEART MONITOR TO EXCLUDE AFIB t 07/2020 Rhythm: Sinus Rhythm T he average heart rate was 81 BPM with a maximum of 104 BPM and a minimum of 57 BPM. N o arrhythmias or ectopy was observed for duration of test. Nadir Ross MD [id number],C,sees IJ rodriguez for renal Nadir Ross MD [id number],S, M ay be underlying reason for SOB. S ees pulmonary Nadir Ross MD [id number],S, L ikely related to obesity. S till sees pulmonary. Nadir Ross MD [id number],C, d escribes fatigue. G et sleep study [...] and should continue use. Nadir Ross MD [id number],C, B ilateral subclavian stenosis S/P revascularization. Pulses [...] op follow up with Dr Cabrera at [facility]. Currently holding plavix and glimeperide for DM, continues with ASA at present September 24, 2022 s ees OCC THERAPY ASST ONC at [facility] Dr Cabrera and managed for right ovarian cancer March 25, 2023 D oing well overall. Energy levels good since completing chemo. & #13;July 08, 2023 S iteman for ovarian ca February 27, 2024 C eric has a hernia, plan for surgical management once she loses weight with OCC THERAPY ASST/Onc Nadir Ross MD Cardiology: B ilateral subclavian stenosis S/P revascularization. Pulses are intact bialterally. 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 Currently holding plavix and glimeperide for DM, continues with ASA at present September 24, 2022 s ees OCC THERAPY ASST ONC at [facility] Dr Cabrera and managed for right ovarian cancer March 25, 2023 D oing well overall. Energy levels good since completing chemo. & #13;July 08, 2023 S iteman for ovarian ca February 27, 2024 C urrently has a hernia, plan for surgical management once she loses weight with OCC THERAPY ASST/Onc Nadir Ross MD Cardiology:INGE and B /L [...] sees pulmonary. Sees Dr. Jacoby Fields in [place]. Pulmonary Nadir Ross MD Cardiology: s tage [...] op follow up with Dr Cabrera at [facility]. Currently holding plavix and glimeperide for DM, continues with ASA at present September 24, 2022 s ees OCC THERAPY ASST ONC at [facility] Dr Cabrera and managed for right ovarian cancer March 25, 2023 D oing well overall. Energy levels good since completing chemo. & #13;July 08, 2023 S iteman for ovarian ca February 27, 2024 C eric has a hernia, plan for surgical management once she loses weight with OCC THERAPY ASST/Onc Nadir Ross MD Cardiology:Bronchi o n exam. [...] u/s to re-evaluate flow and visualize L GROUT MACHINE TENDER which had a potential mobile plaque in [...] WILL NOT PROCEED WITH ANIGO Genevieve Mota SOFTWARE SALES CONSULTANT Cardiology: C ath 11/01/19 I MPRESSION: 1 [...] op follow up with Dr Cabrera at [facility]. Currently holding plavix and glimeperide for DM, continues with ASA at present September 24, 2022 s ees OCC THERAPY ASST ONC at [facility] Dr Cabrera and managed for right ovarian [...] stenosis S/P revascularization. Pulses are intact bialterally. PROCESSING ASSISTANT Stent of the LEFT subclavian artery with [...] DONE A [place] [facility] C heck US of [...] stenosis S/P revascularization. Pulses are intact bialterally. PROCESSING ASSISTANT Stent of the LEFT subclavian artery with [...] DONE A [place] [facility] C heck US of [...] op follow up with Dr Cabrera at [facility]. Currently holding plavix and glimeperide for DM, continues with ASA at present September 24, 2022 s ees OCC THERAPY ASST ONC at [facility] Dr Cabrera and managed for right ovarian [...] u/s to re-evaluate flow and visualize L GROUT MACHINE TENDER which had a potential mobile plaque in [...] op follow up with Dr Cabrera at [facility]. Currently holding plavix and glimeperide for DM, continues with ASA at present N ovember 2021 s ees OCC THERAPY ASST ONC at [facility] Dr Cabrera and managed for right ovarian [...] u/s to re-evaluate flow and visualize L GROUT MACHINE TENDER which had a potential mobile plaque in past. Hx of subclavian stent and will check u/s LUE. Candelario Jane NP Cardiology:Bilateral subclavian stenosis S/P revascularization. Pulses are intact bialterally. 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 Currently holding plavix and glimeperide for DM, continues with ASA at present September 24, 2022 s ees OCC THERAPY ASST ONC at [facility] Dr Cabrera and managed for right ovarian [...] op follow up with Dr Cabrera at [facility]. Currently holding plavix and glimeperide for DM, continues with ASA at present September 24, 2022 s ees OCC THERAPY ASST ONC at [facility] Dr Cabrera and managed for right ovarian cancer Nadir Ross MD Cardiology: P rior CAD stent RCA, no new CP September 24, 2022 c urrent cp is completley reproducible and is not related to cardiac issues Nadir Ross MD Cardiology: B ilateral subclavian stenosis S/P revascularization. Pulses are intact bialterally. 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 Currently holding plavix and glimeperide for [...] Cardiology: A ortogram performed demonstrated RSCA, prior PROCESSING ASSISTANT site, with 30% stenosis. LSCA two stents, [...] E lectronically Signed By: David Ross MD, [facility] 020-- 09:31:19 CDT Nadir Ross MD [...] Ross MD Cardiology:Aortogram performed demonstrated RSCA, prior PROCESSING ASSISTANT site, with 30% stenosis. LSCA two stents, both w/out significant ISR. Both patent. Nadir Ross MD Cardiology follow up Chang comer MD Cardiology follow up :Per Pulmon jose de jesus/IM Chang Haddadyum MD Cardiology follow up Chang comer MD Cardiology follow up :Will let Vin Ross decide. Chang Olivas MD Cardiology: Joytsna hinds 01/2018 Conclusions: 1 . Normal left [...] f a 3 mm x 12 mm [employer] Promus PREMIER drug-eluting stent. Nadir Ross [...] f a 3 mm x 12 mm [employer] Promus PREMIER drug-eluting stent. Nadir Ross [...] f a 3 mm x 12 mm [employer] Promus PREMIER drug-eluting stent. Nadir Ross [...] 09/02 Erin Macias NP Cardiology Follow up:No complai nts of chest pain. Erin Macias NP Cardiology [...] Cardiology: O rders: 9 9215 HIGH Complex (CPT-46556) S TR - Adenosine (99166) S leep Study Home (*) F VC - 58573 (58639) F RC - 36864 (59971) D LCO - 82336 (13708) S NOMED-CT: 54360209 Physical Exam, Performed: Pulse Exam of Foot (SCT-[id number]) Nadir Ross MD Cardiology:SLEEP STUDY TITRATION Nadir [...] MD follow up: O rders: E KG (CPT-92221) Nadir Ross MD Hospital Follow up : H er updated medication list for this problem includes: Lisinopril 2.5 Mg Tabs (Lisinopril) ..... Daily Metformin Hcl Tabs (Metformin hcl tabs) ..... 1 tab daily Aspirin 325 Mg Tabs (Aspirin) ..... Hold till 09/02 Orders: C omplete Echo (CPT-20857) S TR - Adenosine (55450) C arotid Duplex Bilateral (CPT-37185) A ortic Abdominal Ultrasound (CPT-07045) Nadir Ross MD Hospital Follow up : H er updated medication list for this problem includes: Plavix 75 Mg Tabs (Clopidogrel bisulfate) ..... 1 tab daily Aspirin 325 Mg Tabs (Aspirin) ..... Hold till 09/02 Orders: C omplete Echo (CPT-22348) S TR - Adenosine (67142) C arotid Duplex Bilateral (CPT-35800) A ortic Abdominal Ultrasound (CPT-48220) Nadir Ross MD Hospital Follow up : O rders: C omplete Echo (CPT-08860) S TR - Adenosine (33270) C arotid Duplex Bilateral (CPT-44197) A ortic Abdominal Ultrasound (CPT-53663) Nadir Ross MD Hospital Follow up : O rders: E KG (CPT-62593) Nadir Ross MD Hospital Follow up : H er updated medication list for this problem includes: Lisinopril 2.5 Mg Tabs (Lisinopril) ..... Daily Bystolic Tabs (Nebivolol hcl tabs) ..... As directed Aspirin 325 Mg Tabs (Aspirin) ..... Hold till 09/02 Lasix 20 Mg Tabs (Furosemide) ..... 1 tab daily Orders: C omplete Echo (CPT-12081) S TR - Adenosine (53359) C arotid Duplex Bilateral (CPT-27881) A ortic Abdominal Ultrasound (CPT-44452) Nadir Ross MD Follow u p: H [...] ..... 1 tab daily Nadir Ross MD Follow u p: O rders: E KG (CPT-72194) Nadir Ross MD Follow u p: H [...] balloon. 5 . Right femoral angiogram, and 8-Japanese Angio-Seal closure. O rders: S chedule Followup [...] Hr 6 minute walk test DLCO - 03329 FRC - 85858 FVC - 99257 Complete Echo Complete Echo Arterial Duplex Bi-L ower EX Arterial Duplex to r /o psuedoanuerysim Arterial Duplex Uppe r Extremity Bilateral PROTHROMBIN TIME WIT H INR CBC (INCLUDES DIFF/P LT) LIPID PANEL BASIC METABOLIC PANE L W/EGFR Arterial Duplex Uppe r Extremity Bilateral Sleep Study Titratio n DLCO - 21875 FRC - 41903 FVC - 70725 Sleep Study Home STR - Adenosine LIPID [...] completed EKG Nadir Ross MD completed EKG Naidr Ross MD completed EKG Sanjaya Pelon Ross [...] Radhaya Pelon Ross MD completed EKG Nadir oRss MD completed EKG Nadir Ross MD completed EKG Nadir Ross MD completed Regadenoson, 4 units Radhaya Pelon bravo MD completed Cardiolite, 2 units Radhaya Pelon kern MD completed SPECT Images Criselda Hoang MD compl eted Stress EKG Nate Bundy MD complete d EKG Nadir Ross MD completed EKG Nadir Ross MD completed SNOMED-CT: 820551233030741 Current Medications Documented Nadir Ross MD completed FVC / MVV with bronchodilator - 27777 Nadir Ross MD completed 6 minute walk test Nadir workman MD completed BLOOD COUNT HEMOGLOBIN Nadir Ross MD completed FRC - 84528 Nadir Ross MD completed SpO2 - 51864 Nadir Ross MD completed DLCO - 94820 Nadir Ross MD completed ZIO Holter Hookup Nadir tovar MD completed Ambulatory Oximetry Nadir kern MD completed EKG Nadir Ross MD completed SNOMED-CT: 971669541514691 Current Medications Documented Nadir Ross MD completed EKG Nadir Ross MD completed SNOMED-CT: 303722816999842 Current Medications Documented Nadir Ross MD completed EKG Nadir Ross MD completed SNOMED-CT: 349695200816285 Current Medications Documented Nadir Ross MD completed Ultrasound, retroperitoneal, complete Maykel Rodriguez MD completed EKG Nadir Ross MD completed SNOMED-CT: 769717547749770 Current Medications Documented Nadir Ross MD completed EKG Nadir Ross MD completed SNOMED-CT: 794184604315021 Current Medications Documented Nadir Ross MD completed Stress EKG Nadir Ross MD completed Regadenoson, 4 units Nadir bravo MD completed Cardiolite, 2 units Nadir kern MD completed SPECT Images Nadir Ross MD completed SNOMED-CT: 92418004 Physical Exam, Performed: Pulse Exam of Foot Nadir Ross MD completed EKG Nadir Ross MD completed SNOMED-CT: 689032288149175 Current Medications Documented Nadir Ross MD completed EKG Nadir Ross MD completed SNOMED-CT: 315602591761817 Current Medications Documented Nadir Ross MD completed Stress EKG Alonso Renner MD complete d Regadenoson, 4 units Nadir bravo MD completed Cardiolite, 2 units Nadir kern MD completed SPECT Images Criselda Hoang MD compl eted BLOOD COUNT HEMOGLOBIN Nadir Ross MD completed FVC - 51324 Nadir Ross MD completed FRC - 35194 Nadir Ross MD completed DLCO - 46586 Nadir Ross MD completed SNOMED-CT: 92697615 Physical Exam, Performed: Pulse Exam of Foot Nadir Rsos MD completed EKG Nadir Ross MD completed SNOMED-CT: 702716025831667 Current Medications Documented Nadir Ross MD completed Stress EKG Maykel Rodriguez MD completed Regadenoson, 4 units Nadir bravo MD completed Cardiolite, 2 units Nadir kern MD completed SPECT Images Nadir Ross MD completed Holter, 24 or 48 Criselda Hoang MD c ompleted EKG Nadir Ross MD completed SNOMED-CT: 659261406421862 Current Medications Documented Nadir Ross MD completed EKG Nadir Ross MD completed EKG Nadir Ross MD completed EKG [place] hernandez MD completed EKG Nadir Ross MD completed Schedule Followup Boston hines MD Please schedule a follow-up appointment with Dr. ross in 6 months. completed EKG Boston hernandez MD completed
--- OUTSIDE RECORDS SUMMARY | 2025-03-19 12:25 | XMS_ITS | Encounter Summary ---
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
--- OUTSIDE RECORDS SUMMARY | 2025-03-19 12:25 | XMS_ITS | Continuity of Care Document ---
Author Organization [facility] [place] [address] [place] [address] [address] [place] [address] Phone Care Team Providers Care Golf Caddy Name Role Phone Parker Cabral Unavailable Unavailable Procedures Procedure Date Visual Field Examination(s) Visual Field Examination(s) Eye Exam & Treatment Optic Nerve Head Eval No Script Corneal Pachymetry Eye Exam, New Patient Advance Directives Directive Yes / No Effective Date File Name No Information Encounters Encounter Description Practice Location Reason(s) For Visit Diagnoses Date Provider Providers Copied on Encounter [facility], [address] [place] [address] [address], [place], [place], [id number], tel:[phone] [facility] No Information 2-200 9 Krishnasamy Parker. [address] [place] [address], [facility], [place]. tel:[phone] Referring Provider: Parker douglas, [address] [place] [address], [facility]. tel:[phone] [facility], [address] [place] [address] [address], [place], [place], [id number], tel:[phone] [facility] No Information 5-200 9 Krishnasamy Parker. [address] [place] [address], [facility], [place]. tel:[phone] Referring Provider: Parker douglas, [address] [place] [address] [address], [place], [address]. tel:[phone] [facility], [address], [place], [place], [id number], tel:[phone] [facility] No Information Feb-2 7-200 9 Misha Herringhil. [address] [place] [address] [address], [place], [facility], . tel:[phone] Referring Provider: Parker douglas, [address] [place] [address] [address], [place], [place], [facility]. tel:[phone] [facility], [address], [place], [place], [id number], tel:[phone] [facility] No Information March-3 0-200 7 Cannon OD Jose. [address] [place] [address] , [address], [place], [address], . tel:[phone] Family History Family Member Type Diagnosis Age At Onset No Information Payers Payer name Insurance type Covered alliance party ID Authoriza tion(s) Medicare [facility] [id number] Medicaid [facility]LY [facility], 1928–1983 [id number] Social History Type Description Quantity Date Captured [...]
--- OUTSIDE RECORDS SUMMARY | 2025-03-19 12:25 | XMS_ITS ---
Author Organization [facility] [address] [place] [address] Care Team Providers Care Gmat Instructor Name Role Phone Khalif Reynolds MD Primary Care Provide r Chriss Hendrickson MD Unavailable [phone] Zaid Adams MD Unavailable [phone] Nadir Ross MD Unavailable [phone] Active Problems Problem Noted Date Diagnosed Date [...] (05/18/2022): Added automatically from request for surgery [id number] Abdominal pain 05/17/2022 Ovarian cancer 05/16/2022 Overview [...] medicine Assessment & Plan (10/18/2024 1:36 PM ROCK CRUSHER): Continue PAP use with all sleep She [...] 11/22/2017 Assessment & Plan (11/22/2017 4:45 PM ROCK CRUSHER): Ultrasound performed ( see report ) No solid nodules that need attention are visualized Continue to watch, no indication for any intervention at this point. Subclinical hyperthyroidism 11/22/2017 Assessment & Plan (02/21/2018 3:49 PM CDT): Check TFT's Start Tapazole if indicated Otherwise, f/u in 6 m Assessment & Plan (11/22/2017 4:44 PM ROCK CRUSHER): Will check TFTs Stop PTU ( risk [...] care Assessment & Plan (10/18/2024 1:35 PM ROCK CRUSHER): Continue Symbicort 160/4.5 twice daily While she [...] CARBOplatin (AUC 5) 21 Day Cycles - MANAGER PUBLIC* Plan Start Date:07/04/2022 Plan Provider:Lisseth Peters MD [...]
--- OUTSIDE RECORDS SUMMARY | 2025-03-19 12:25 | XMS_ITS | Clinical Summary ---
Author Organization [facility] Address [facility] [place] [address] Care Team Providers Care Breakdown Worker Name Role Phone Unavailable Primary Care Provider [...] HFA) 108 (90 Base) MCG/ACT inhalerIndicatio ns:Asthma ([facility]),COPD (chronic obstructive pulmonary disease) ([facility]) Inhale 2 puffs into the lungs every 6 (six) hours as needed for Wheezing. 12/01/2018 Active Active Problems Problem Noted Date Diagnosed Date Asthma ([facility]) 05/26/2017 COPD (chronic obstructive pu lmonary disease) ([facility]) 05/26/2017 Social History Tobacco Use Types Packs/Day [...]
--- OUTSIDE RECORDS SUMMARY | 2025-03-19 12:25 | XMS_ITS | Encounter Summary ---
Demographics Address [address] [place] [address] Mobile Phone Home Phone Preferred Language Italian Marital Status Single Pentecostalism Affiliation Unknown Race White Ethnic Group Not or Lati no Author Organization [facility] Healthcare Address [address] [place] [address] Care Team Providers Care Habitat Management Coordinator Name Role Phone Khalif Reynolds MD Primary Care Provide r Chriss Hendrickson MD Unavailable [phone] Zaid Adams MD Unavailable [phone] Nadir Ross MD Unavailable [phone] Encounter Details Date Type Department Care Team (Late Contact Info) Description 09/02/2022 Telephone [facility] Radiology 1 [place] [address] Nicolasa Gilbert, RN Social History Tobacco Use [...] on file 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 Gender Identity Not on file Sexual Orientation Not on file documented as of this encounter Plan of Treatment Upcoming Encounters Date Type Department Care Team (Late Contact Info) Description 05/21/2025 Hospital Encounter [facility] Operating Room [address] [place] [address] Asad Aldridge MD [address] [place] [address] Scheduled Procedures Name Priority Associated Diagnoses Date/Ti me XI REPAIR INCISIONAL HERNIA - LAPAROSCOPIC ROBOTIC ASSISTED RETRO-RECTUS APPROACH Incarcerated incisional hernia documented as of this encounter Visit Diagnoses Not on filedocumented in this encounter Care Teams Habitat Management Coordinator Relationship Specialty Start Date End Date Khalif Reynolds MD [address] [facility] [place] [address] [place] [address] PCP - General Internal Medicine 10/28/17 Chriss Hendrickson MD [address] [place] [address] [place] [address] Referring Physician Obstetrics and Gynecology 01/18/20 Zaid Adams MD [address] [place] [address] Referring Physician Gastroenterology 02/14/23 Nadir Ross MD [address] [place] [address] Consulting Physician Cardiovascular Disease 02/14/23 documented as of this encounter
--- OUTSIDE RECORDS SUMMARY | 2025-03-19 12:25 | XMS_ITS | Encounter Summary ---
Demographics Address [address] [place] [address] Mobile Phone Home Phone Preferred Language Greenlandic Marital Status Single Mosque Affiliation Unknown Race White Ethnic Group Not or Lati no Author Organization [facility] Healthcare Address [address] [place] [address] Care Team Providers Care Chief Diversity Officer Name Role Phone Khalif Reynolds MD Primary Care Provide r Chriss Hendrickson MD Unavailable [phone] Zaid Adams MD Unavailable [phone] Nadir Ross MD Unavailable [phone] Encounter Details Date Type Department Care Team (Late st Contact Info) Description 07/07/2022 Telephone [facility] Radiology [facility] [place] [address] [place] [address] Mellissa Junior RN Social History Tobacco Use [...] on file 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 Gender Identity Not on file Sexual Orientation Not on file documented as of this encounter Plan of Treatment Upcoming Encounters Date Type Department Care Team (Late Contact Info) Description 05/21/2025 Hospital Encounter [facility] Operating Room [address] [place] [address] Asad Aldridge MD [address] [place] [address] Scheduled Procedures Name Priority Associated Diagnoses Date/Ti me XI REPAIR INCISIONAL HERNIA - LAPAROSCOPIC ROBOTIC ASSISTED RETRO-RECTUS APPROACH Incarcerated incisional hernia documented as of this encounter Visit Diagnoses Not on filedocumented in this encounter Care Teams Chief Diversity Officer Relationship Specialty Start Date End Date Khalif Reynolds MD [address] [facility] [place] [address] [place] [address] PCP - General Internal Medicine 10/28/17 Chriss Hendrickson MD [address] [place] [address] [place] [address] Referring Physician Obstetrics and Gynecology 01/18/20 Zaid Adams MD [address] [place] [address] Referring Physician Gastroenterology 02/14/23 Nadir Ross MD [address] [place] [address] Consulting Physician Cardiovascular Disease 02/14/23 documented as of this encounter
--- OUTSIDE RECORDS SUMMARY | 2025-03-19 12:25 | XMS_ITS | Clinical Summary ---
Author Organization [facility] Physician Office Building [address] [place] [address] Care Team Providers Care Bankruptcy Paralegal Name Role Phone Khalif Reynolds MD Primary Care Provide r Chriss Hendrickson MD Unavailable [phone] Zaid Adams MD Unavailable [phone] Nadir oRss MD Unavailable Allergies Active Allergy Reactions Criticality [...] 2 (two) times a day Active multivit adcovcmm-hain-ZC -calcium (THERA-M) 9 mg iron-400 mcg tablet [...] (05/18/2022): Added automatically from request for surgery [id number] Abdominal pain 05/17/2022 Ovarian cancer 05/16/2022 Overview [...] medicine Assessment & Plan (10/18/2024 1:36 PM ENGINEERING PROFESSOR): Continue PAP use with all sleep She [...] 11/22/2017 Assessment & Plan (11/22/2017 4:45 PM ENGINEERING PROFESSOR): Ultrasound performed ( see report ) No solid nodules that need attention are visualized Continue to watch, no indication for any intervention at this point. Subclinical hyperthyroidism 11/22/2017 Assessment & Plan (02/21/2018 3:49 PM CDT): Check TFT's Start Tapazole if indicated Otherwise, f/u in 6 m Assessment & Plan (11/22/2017 4:44 PM ENGINEERING PROFESSOR): Will check TFTs Stop PTU ( risk [...] care Assessment & Plan (10/18/2024 1:35 PM ENGINEERING PROFESSOR): Continue Symbicort 160/4.5 twice daily While she [...] Description 03/07/2025 2:00 PM CDT Office Visit [facility] Pulmonary at [address] [place] [address] Elizabeth Barr, MENDEL Immunoglobulin G subclass deficiency (HCC) (Primary Dx); Moderate chronic obstructive pulmonary disease (HCC); Obstructive sleep apnea 03/01/2025 7:00 PM CDT - 03/01/2025 11:59 PM CDT Hospital Encounter [facility] Center 1 [place] [address] Obstructive sleep apnea Discharge Disposition: Discharge to home or self care 02/12/2025 9:30 AM CDT Office Visit [facility] Sleep Medicine at [place] [address] [facility] [address] [place] [address] Luli Devlin MD Obstructive sleep apnea (Primary Dx); Hypersomnia; Obesity, unspecified class, unspecified obesity type, unspecified whether serious comorbidity present 02/08/2025 9:30 AM CDT Office Visit [facility] Minimally Invasive Surgery [address] [place] [address] 12th Floor, [place] [phone] Asad Aldridge MD Incisional hernia, without obstruction or gangrene (Primary Dx); Malignant neoplasm of right ovary (HCC) 01/14/2025 Telephone [facility] Minimally Invasive Surgery [address] [facility] Medical Office Building 4 [address] [place] [address] Asad Aldridge MD 01/14/2025 [facility] [id number] [place] [address] [address] [place] [address] Cat Villalba MD appointment schedule [...] on file Legal Sex Female 12:59 PM ENGINEERING PROFESSOR Gender Identity Not on file Sexual Orientation [...] st Contact Info) Description 05/21/2025 Hospital Encounter [facility] Operating Room 1 [place] [address] Asad Aldridge MD [address] [place] [address] Scheduled Procedures Name Priority Associated Diagnoses Date/Ti [...] 07/19/2029 07/19/2019 Medical Devices Implanted Type Area Sap Director Device Identifier Shelf Expiration Date Model / Serial / Lot [employer] Xcela Power Port 8fr [id number] - [id number] Implanted:Qty: 1 on 07/09/2022 at [facility] [employer] 01/05/2027 [id number] / / [id number] Procedures Procedure Name Priority Date/Time Associated Diagnosis Comments PSG (SIMPLE) Routine 03/05/2025 Obstructive sleep apnea COMPREHENSIVE METABOLIC PANEL Routine 10/02/2024 10:02 AM ENGINEERING PROFESSOR HEMOGLOBIN A1C Timed 05/17/2022 12:15 AM CDT LIPID PANEL Timed 05/17/2022 12:15 AM CDT from Last 3 Months or Most Recently Relevant to Health Maintenance Results * PSG (03/05/2025) Impressions Luli Devlin MD - 03/05/2025 SPLIT NIGHT POLYSOMNOGRAPHY History: Crissy Parham is a 69 y.o. female who presented for a baseline polysomnogram. Reason for sleep study: Obstructive sleep apnea, needs a new device [place] sleepiness score: 1 Weight: 189 lbs BMI: 34.66 Procedure: This overnight split night polysomnogram was performed with the processing technologist in attendance. Patient is studied with [...] scored according to the criteria from The [place] Academy of Sleep Medicine (AASM) Manual for [...] Clinical correlation is recommended. Luli Devlin MD [facility] Sleep Medicine Narrative Luli Devlin MD - 03/05/2025 In lab for review us Luli Devlin MD SLEEP CENTER ORDERABLES Final Re sult * (ABNORMAL) Comprehensive metabolic panel (10/02/2024 10:02 AM ENGINEERING PROFESSOR) Glucose 130(H) 65 - 99 mg/dL [facility] Comment: Fasting reference interval For someone without known diabetes, a glucose value >125 mg/dL indicates that they may have diabetes and this should be confirmed with a follow-up test. BUN 15 7 - 25 mg/dL [facility] Creatinine 1.01 0.50 - 1.05 mg/dL [facility] eGFR 61 > OR = 60 mL/min/1.7 3m2 [facility] BUN/creat ratio SEE NOTE: 6 - 22 (calc) [facility] Comment: Not Reported: BUN and Creatinine are within reference range. Sodium 137 135 - 146 mmol/L [facility] Potassium, pl 3.8 3.5 - 5.3 mmol/L [facility] Chloride 101 98 - 110 mmol/L [facility] CO2 26 20 - 32 mmol/L [facility] Calcium 9.4 8.6 - 10.4 mg/dL [facility] Protein, sr 6.8 6.1 - 8.1 g/dL [facility] Albumin 4.1 3.6 - 5.1 g/dL [facility] GLOBULIN 2.7 1.9 - 3.7 g/dL (calc) [facility] Alb/glob ratio 1.5 1.0 - 2.5 (calc) [facility] Bilirubin, total 0.6 0.2 - 1.2 mg/dL [facility] Alk phos 95 37 - 153 U/L [facility] AST 18 10 - 35 U/L [facility] ALT (SGPT) 18 6 - 29 U/L [facility] 10/02/2024 10:0 2 AM ENGINEERING PROFESSOR 10/02/2024 10:02 AM ENGINEERING PROFESSOR [facility] Willie Peters MD LAB BLOOD ORDERABLES Fin al Result Performing Organization Address City/[facility] Co de Phone Number [facility] [address] [place] [address] * (ABNORMAL) Hemoglobin A1c (05/17/2022 12:15 AM [...] 5 AM CDT 05/17/2022 1:26 AM CDT [facility] MD LAB BLOOD ORDERABLES Fin al Result Performing Organization Address [facility] de Phone Number [facility] Department [place] [address] * Lipid panel (05/17/2022 12:15 AM CDT) Cholesterol 88 30 - 199 mg/dL [facility] Comment: Interpretive Data Ages < or [...] on 2018. Triglycerides 100 <=149 mg/dL [facility] Comment: Interpretive Data Ages < or [...] on 2018. HDL 42 >=40 mg/dL [facility] Comment: Interpretive Data Ages < or [...] 2018. LDL, calculated 26 <=129 mg/dL [facility] Comment: Interpretive Data Ages < or [...] on 2018. Non-HDL Cholesterol 46 mg/dL [facility] Comment: Interpretive Data Ages < or [...] 5 AM CDT 05/17/2022 1:26 AM CDT [facility] Willie Peters MD LAB BLOOD ORDERABLES Fin al Result [facility] Department [place] [address] from Last 3 Months or Most Recently Relevant to Health Maintenance Insurance * Guarantor: Crissy Parham Account Type Relation to Patient Date of Phone Billing Address Personal/Family Self 1955 [address] [place] [address] [facility] MEDICARE ADVANTAGE IDPA * Guarantor: Crissy Parham Account Type Relation to Patient Date of Phone Billing Address Personal/Family Self 1955 [address] [place] [address] [employer] [facility] MEDICARE ADVANTAGE * Guarantor: Crissy Parham Account Type Relation to Patient Date of Phone Billing Address Personal/Family Self 1955 [address] [place] [address] [employer] [facility] MEDIC[facility] ADVANTAGE Advance Directives For more information, please contact: [phone] * Full Code (Latest Code Status on File) Date Activated Date Inactivated Comments 05/03/2023 12:51 PM 05/04/2023 4:49 AM * Full Code Date Activated Date Inactivated Comments 09/03/2022 7:43 AM 09/04/2022 4:50 AM * Full Code Date Activated Date Inactivated Comments 07/09/2022 7:09 AM 07/10/2022 4:47 AM * Full Code Date Activated Date Inactivated Comments 05/16/2022 11:52 PM 05/18/2022 9:16 PM Care Teams Bankruptcy Paralegal Relationship Specialty Start Date End Date Khalif Reynolds MD [address] [facility] [address] [place] [address] PCP - General Internal Medicine 10/28/17 Chriss Hendrickson MD [address] [place] [address] [place] [address] Referring Physician Obstetrics and Gynecology 01/18/20 Zaid Adams MD [address] [place] [address] Referring Physician Gastroenterology 02/14/23 Nadir Ross MD [address] [place] [address] Consulting Physician Cardiovascular Disease 02/14/23
--- OUTSIDE RECORDS SUMMARY | 2025-03-19 12:25 | XMS_ITS | Clinical Summary ---
Author Organization [facility] Address [facility] [place] [address] Care Team Providers Care Veterinary Medicine Teacher Name Role Phone Mar Reynolds MD Primary Care Provider Source Comments [facility],non-owned Affiliates and Associated Physician Practices is amultiple site organization consisting of ambulatory clinics and hospital sitesin [place], [place], [place] and [place]. This disclosure is being madepursuant to the Care Everywhere program and may not contain all information available regarding this patient. 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, previously known as NAFLD) (Primary Dx) 02/11/2025 8:00 AM CDT Procedure visit [facility] - GI [address] [facility], [place] [phone] None, Physician ERIS (metabolic dysfunction associated steatotic [...] on file Legal Sex Female 9:49 AM AUTOMATIC STEEL TIE ADJUSTER Gender Identity Not on file Sexual Orientation [...] Procedure Name Priority Date/Time Associated Diagnosis Comments SC LIVER ELASTOGRAPHY Routine 02/11/2025 8:02 AM CDT 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, previously known as NAFLD) COMP MET PANEL (EXTERNAL RESULT ENTRY) Routine 01/11/2020 HEMOGLOBIN A1C (EXTERNAL RESULT ENTRY) Routine 01/11/2020 HEPATITIS SCREEN ACUTE (EXTERNAL RESULTS) Routine 02/26/2019 3:06 PM CDT from Last 3 Months or Most Recently Relevant to Health Maintenance Results * SC LIVER ELASTOGRAPHY (02/11/2025 8:02 AM CDT) Narrative [...] of liver-related events. J Hepatol (2021) 76: 9514-9325. Sandra PJ, Florence M, Beth M, et al. Accuracy of FibroScan controlled attenuation parameter and liver stiffness measurement in assessing steatosis and fibrosis in patients with nonalcoholic fatty liver disease. Gastroenterology 2019;156:4450-2912. Sharif MS, Rubin R, Van Gera ML, [...] at-risk nonalcoholic steatohepatitis (WILCOX) in a [place] cohort and comparison to other non-invasive algorithms. PLoS ONE (2021) 17: [id number]. Shira GARCIA, Gavin J, Youncooper ZM, et al. Enhanced diagnosis of advanced fibrosis and cirrhosis in individuals with NAFLD using FibroScan-based Agile scores. J Hepatol (2022) 78: 247-259. Jane et al. Vibration-controlled transient elastography scores to predict liver-related events in steatotic liver disease. OLEKSANDR (2023) 331: 8025-0515 Fibroscan LSM can also be used with laboratory parameters without formulas to assess prognosis. According to the Baveno-VII criteria (Leyva, 2021), Fibroscan LSM <=15 kPa plus a platelet count of >=136j467/L rules out clinically significant portal hypertension (sensitivity [...] FIB-4 score (Jagdish et al. Hepatology Communications 2019;3:3653-5616) or NAFLD Fibrosis score (Turcios et al. Clinical Gastroenterology and Hepatology 2019;17:9674-6495 using routine clinical data. Notes: 1. Fibroscan [...] additional interpretive data was last updated 11/16/24.) [email or web address] Zaid Randolph MD PROCEDURE/MINOR PATEL RGICAL [...] % Blood BLOOD SPECIMEN / Unknown 01/11/2020 [facility] Provider MD LAB - CHEMISTRY ORDERABLE S [...] Maintenance Insurance MEDICAID - OUT OF STATE [facility] MANAGED MEDICARE ADV * Guarantor: Crissy Parham Account Type Relation to Patient Date of Phone Billing Address Personal/Family Self 1955 [facility] [address] [place] [address] [facility] MANAGED MEDICARE ADV [facility] MEDICAID Care Teams Veterinary Medicine Teacher Relationship Specialty Start Date End Date Mar Reynolds MD [address] [place] [phone] PCP - General Internal Medicine 12/27/18
--- OUTSIDE RECORDS SUMMARY | 2025-03-19 12:25 | XMS_ITS | Clinical Summary ---
Demographics Address [address] [place] [address] Home Phone Mobile Phone Email Address Preferred Language Unknown Marital Status Jehovah'S Witness Affiliation Unknown Race White Ethnic Group Unknown Author Organization [facility] Address [address] [facility] [place] [address] Care Team Providers Care Record Pressman Name Role Phone Mar Reynolds MD Primary [...] on file Legal Sex Female 3:07 AM CONTROL CLERK SUBASSEMBLY Gender Identity Not on file Sexual Orientation Not on file Last Filed Vital Signs Vital Sign Reading Time Taken Comments Blood Pressure 119/73 12/01/2022 2:00 PM CONTROL CLERK SUBASSEMBLY Pulse 85 12/01/2022 2:00 PM CONTROL CLERK SUBASSEMBLY Temperature 37.4 C (99.3 F) 12/01/2022 2:00 PM CONTROL CLERK SUBASSEMBLY Respiratory Rate 14 12/01/2022 2:00 PM CONTROL CLERK SUBASSEMBLY Oxygen Saturation 96% 12/01/2022 2:00 PM CONTROL CLERK SUBASSEMBLY Inhaled Oxygen Concentration - - Weight 87.3 kg (192 lb 8 oz) 12/01/2022 2:00 PM CONTROL CLERK SUBASSEMBLY Height 161.3 cm (5' 3.5 ) 07/31/2020 11:29 AM CD T Body Mass Index 33.56 07/31/2020 11:29 AM CDT Plan of Treatment Upcoming Encounters Date Type Department Care Team (Late st Contact Info) Description 05/28/2025 11:15 AM CDT Office Visit [facility] Oncology and Hematology [facility] [address] [facility] [address] [place] [address] Stephen Douglas MD [address] [facility] [address] [place] [address] Health Maintenance Due Date Last [...] Colorectal Cancer Screening 08/31/2029 Insurance [address] [address] [facility] [address] [place] [id number] [facility] [address] [facility] [place] Care Teams Record Pressman Relationship Specialty Start Date End Date Mar Reynolds MD PCP - General Internal Medicine 02/13/19
--- OUTSIDE RECORDS SUMMARY | 2025-03-19 12:25 | XMS_ITS | Referral Summary ---
Author Organization [facility] Physician Office Building [address] [place] [address] Care Team Providers Care Internet Marketing Executive Name Role Phone Khalif Reynolds MD Primary Care Provide r Chriss Hendrickson MD Unavailable [phone] Zaid Adams MD Unavailable [phone] Nadir Ross MD Unavailable [phone] Encounters Date Type Department Care Team Description 03/07/2025 2:00 PM CDT Office Visit [facility] Pulmonary at [address] [place] [address] Elizabeth Barr NP Immunoglobulin G subclass deficiency (HCC) (Primary Dx); Moderate chronic obstructive pulmonary disease (HCC); Obstructive sleep apnea 03/01/2025 7:00 PM CDT - 03/01/2025 11:59 PM CDT Hospital Encounter [facility] 1 [place] [address] Obstructive sleep apnea Discharge Disposition: Discharge to home or self care 02/12/2025 9:30 AM CDT Office Visit [facility] Sleep Medicine at [address] [place] [address] Luli Devlin MD Obstructive sleep apnea (Primary Dx); Hypersomnia; Obesity, unspecified class, unspecified obesity type, unspecified whether serious comorbidity present 02/08/2025 9:30 AM CDT Office Visit [facility]ally [facility]vasive Surgery [address] [place] [address] 12th Floor, [place] [address] Asad Aldridge MD Incisional hernia, without obstruction or gangrene (Primary Dx); Malignant neoplasm of right ovary (HCC) 01/14/2025 Telephone [facility] [address] [facility] [address] [place] [address] Asad Aldridge MD 01/14/[address] [facility] Specialists [facility] [address] [place] [address] [address] [place] [address] Cat Villalba MD appointment schedule [...] 2 (two) times a day Active multivit eltekznh-ykej-GC -calcium (THERA-M) 9 mg iron-400 mcg tablet [...] (05/18/2022): Added automatically from request for surgery [id number] Abdominal pain 05/17/2022 Ovarian cancer 05/16/2022 Overview [...] medicine Assessment & Plan (10/18/2024 1:36 PM SCARF GLUER): Continue PAP use with all sleep She [...] 11/22/2017 Assessment & Plan (11/22/2017 4:45 PM SCARF GLUER): Ultrasound performed ( see report ) No solid nodules that need attention are visualized Continue to watch, no indication for any intervention at this point. Subclinical hyperthyroidism 11/22/2017 Assessment & Plan (02/21/2018 3:49 PM CDT): Check TFT's Start Tapazole if indicated Otherwise, f/u in 6 m Assessment & Plan (11/22/2017 4:44 PM SCARF GLUER): Will check TFTs Stop PTU ( risk [...] care Assessment & Plan (10/18/2024 1:35 PM SCARF GLUER): Continue Symbicort 160/4.5 twice daily While she [...] on file Legal Sex Female 12:59 PM SCARF GLUER Gender Identity Not on file Sexual Orientation [...] st Contact Info) Description 05/21/[address] [facility] Operating Room 1 [place] [id number] Asad Aldridge MD [address] [place] [address] (work) Scheduled Procedures Name Priority Associated Diagnoses Date/Ti me XI REPAIR INCISIONAL HERNIA - LAPAROSCOPIC ROBOTIC ASSISTED RETRO-RECTUS APPROACH Incarcerated incisional hernia Medical Devices Implanted Type Area Auditing Specialist Device Identifier Shelf Expiration Date Model / Serial / Lot [employer] Xcela Power Port 8fr [id number] - [id number] Implanted:Qty: 1 on 07/09/2022 at [facility] [employer] 01/05/2027 [id number] / / [id number] Procedures Procedure Name Priority Date/Time Associated Diagnosis Comments PSG (SIMPLE) Routine 03/05/2025 Obstructive sleep apnea COMPREHENSIVE METABOLIC PANEL Routine 10/02/2024 10:02 AM SCARF GLUER HEMOGLOBIN A1C Timed 05/17/2022 12:15 AM CDT LIPID PANEL Timed 05/17/2022 12:15 AM CDT from Last 3 Months or Most Recently Relevant to Health Maintenance Results * PSG (03/05/2025) Impressions Luli Devlin MD - 03/05/2025 SPLIT NIGHT POLYSOMNOGRAPHY History: Crissy Parham is a 69 y.o. female who presented for a baseline polysomnogram. Reason for sleep study: Obstructive sleep apnea, needs a new device [place] sleepiness score: 1 Weight: 189 lbs BMI: 34.66 Procedure: This overnight split night polysomnogram was performed with the agricultural research technologist in attendance. Patient is studied with [...] scored according to the criteria from The [place] Academy [employer] Sleep Medicine (AASM) Manual for [...] Clinical correlation is recommended. Luli Devlin MD [facility] Sleep Medicine Narrative Luli Devlin MD - 03/05/2025 In lab for review Luli Devlin MD SLEEP CENTER ORDERABLES Final Re sult * (ABNORMAL) Comprehensive metabolic panel (10/02/2024 10:02 AM SCARF GLUER) Glucose 130(H) 65 - 99 mg/dL [facility] [...] Diagnostics-S t Greg 10/02/2024 10:0 2 AM SCARF GLUER 10/02/2024 10:02 AM SCARF GLUER Lisseth Peters MD LAB BLOOD ORDERABLES Fin al Result Performing Organization Address City/State/[facility] de Phone Number [facility] [address] [place] [address] * (ABNORMAL) Hemoglobin A1c (05/17/2022 12:15 AM CDT) Hgb A1C 6.0(H) 4.0 - 5.6 % [facility] Estimated Average Glucose 126 mg/dL [facility] Comment: The ADA recommends reporting an estimated Average Glucose (eAG) with all Hemoglobin A1c results using the equation derived from a study of 507 normal and diabetic adults. Minority populations were underrepresented and children were not included. (Diabetes Care 2020; 43(S1): S66-S76). The eAG is not equivalent to a fasting glucose. Blood 05/17/2022 12:1 5 AM CDT 05/17/2022 1:[address] [facility] Willie Peters MD LAB BLOOD ORDERABLES Fin al Result Performing Organization Address [facility] de Phone Number [facility] Department [place] [address] * Lipid panel (05/17/2022 12:15 AM CDT) Pathologist [facility] Cholesterol 88 30 - 199 mg/dL [facility] Comment: Interpretive Data Ages < or = [...] revised on 2018. Triglycerides 100 <=149 mg/dL [facility] Comment: Interpretive Data Ages < or = [...] revised on 2018. HDL 42 >=40 mg/dL [facility] Comment: Interpretive Data Ages < or = [...] on 2018. LDL, calculated 26 <=129 mg/dL [facility] Comment: Interpretive Data Ages < or = [...] revised on 2018. Non-HDL Cholesterol 46 mg/dL [facility] Comment: Interpretive Data Ages < or [...] last revised on 2018. Chol/HDL ratio 2 [facility] Blood 05/17/2022 12:1 5 AM CDT 05/17/2022 1:26 AM CDT us Premal Willie Peters MD LAB BLOOD ORDERABLES Fin al Result [facility] Department [place] [address] from Last 3 Months or Most Recently Relevant to Health Maintenance Insurance * Guarantor: Crissy Parham Account Type Relation to Patient Date of Phone Billing Address Personal/Family Self 1955 [address] [place] [address] [facility] MEDICARE ADVANTAGE IDPA * Guarantor: Crissy Parham Account Type Relation to Patient Date of Phone Billing Address Personal/Family Self 1955 [address] [place] [address] [facility] MEDICARE ADVANTAGE IDIA [facility] MEDICARE ADVANTAGE Advance Directives For more information, please contact: [phone] * Full Code (Latest Code Status on File) Date Activated Date Inactivated Comments 05/03/2023 12:51 PM 05/04/2023 4:49 AM * Full Code Date Activated Date Inactivated Comments 09/03/2022 7:43 AM 09/04/2022 4:50 AM * Full Code Date Activated Date Inactivated Comments 07/09/2022 7:09 AM 07/10/2022 4:47 AM * Full Code Date Activated Date Inactivated Comments 05/16/2022 11:52 PM 05/18/2022 9:16 PM Care Teams Internet Marketing Executive Relationship Specialty Start Date End Date Khalif Reynolds MD [address] [facility] [place] [address] [place] [address] PCP - General Internal Medicine 10/28/17 Chriss Hendrickson MD [address] [place] [address] [place] [address] Referring Physician Obstetrics and Gynecology 01/18/20 Zaid Adams MD [facility] [place] [address] Referring Physician Gastroenterology 02/14/23 Nadir Ross MD [address] [place] [address] Consulting Physician Cardiovascular Disease 02/14/23
== END 2025-03-19 12:34 | disposition home or self-care (01) ==
PROVIDERS: Emergency Provider Preventive Medicine Aerospace Medicine; PCP Internal Medicine
DX: S40.012A Contusion of left shoulder, initial encounter (principal); E05.90 Thyrotoxicosis, unspecified without thyrotoxic crisis or storm; E11.9 Type 2 diabetes mellitus without complications; W01.0XXA Fall on same level from slipping, tripping and stumbling without subsequent striking against object, initial encounter
CPT/HCPCS: 73030; 99283

== ENCOUNTER 2025-06-25 10:30 | Outpatient (CLI) | payer MEDICARE, MEDICAID, SELFPAY ==
--- NOTE | ~2025-06-25 | XR_ITS ---
Exam: X-ray right third toe minimum 2 views. Clinical history: Pain in right third toe. TECHNIQUE: 4 images of the right third toe were obtained. Comparisons: None. FINDINGS: Bone mineralization is within normal limits. No fracture. No dislocation. No sclerotic or destructive bone lesion. Soft tissue swelling about the right third toe. No convincing radiographic evidence for osteomyelitis at this time. Mild joint space narrowing in the PIP and DIP joints of the third toe. IMPRESSION: 1. No acute bony abnormality identified. If symptoms persist or worsen, consider a short-term follow-up study or additional imaging for furthe r assessment. Reviewed, dictated and finalized at location A. IMPRESSION: 1. No acute bony abnormality identified. If symptoms persist or worsen, consider a short-term follow-up study or additio nal imaging for further assessment.
--- OUTSIDE RECORDS SUMMARY | 2025-06-25 11:19 | XMS_ITS | Encounter Summary ---
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 [place] 15 [place] [address] PCP - General Internal Medicine 12/27/18 documented as of this encounter
--- OUTSIDE RECORDS SUMMARY | 2025-06-25 11:19 | XMS_ITS ---
Author Organization [facility] Address [address] [facility] [address] [facility] [address] [place] [address] Care Team Providers Care Websphere Process Server Developer Name Role Phone Damian Rodriguez Unavailable [phone] Encounters Encounter Location Date Provider Diagnosis [place] [facility] 2043 [facility] 15 [place] [address] 03/04/2025 Damian Rodriguez Chronic kidney disea se, [...] gangrene (ICD-10 - K46.9) Plan Of Treatment No Information Progress Notes * CRISSY GARZADOB:1955 (70 yo F)Acc No.[id number]:03/04/2025 Patient: CRISSY RUIZ Provider: Deepika ABDI MD, F.A.C.P, F.A.S.N. :1955 A ge:69 Y S ex:Female Date:03/04/2025 Address:[facility] 11[address] [facility] Subjective: * Chief Complaints: Objective: Assessment: * [...] Electronic signature of Raphael Rodriguez MD on 06/25/2025 at 11:19 AM CDT Sign off status: Pending * Provider: Deepika ABDI MD, F.A.C.P, F.A.S.N. Date: 0 03/04/2025 Generated for Printing/Faxing/eTransmitting on: 0 06/25/2025 11:19 AM CDT
--- OUTSIDE RECORDS SUMMARY | 2025-06-25 11:20 | XMS_ITS ---
Author Organization [facility] Address [address] [address] Care Team Providers Care Brim Plater Name Role Phone Vicky Siddiqi Unavailable [phone] REASON FOR VISIT referral / diabetes Encounters Encounter Location Date Provider Diagnosis [facility] Siddiqi [address] [place] [address] 06/21/2025 Vicky Siddiqi Plan Of Treatment Next Appt Details Provider Name:Vicky Siddiqi, 09:20:00 AM, [address] [place] [address], [phone], Progress Notes * Tsering GARZADOB:1955 (70 yo F)Acc No.[id number]:06/21/2025 Progress Notes Patient: Tsering Garcia Provider: Jarret Siddiqi MD :1955 A ge:70 Y S ex:Female Date:06/21/2025 Phone: Address:[address] [place], [place] [phone] Subjective: * Chief Complaints: * R eferral / diabetes * Electronic signature of Rafa Siddiqi MD on 06/25/2025 at 11:19 AM CDT Sign off status: Pending * Provider: Jarret Siddiqi MD Date: 06/21/2025 Generated for Danny ng/Fakareng/eTransmitting on: 0 06/25/2025 11:19 AM CDT
--- OUTSIDE RECORDS SUMMARY | 2025-06-25 11:20 | XMS_ITS ---
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 Name Role Phone Vicky Siddiqi Unavailable [phone] Allergies No Known Allergies REASON FOR VISIT EST CARE Medications Medication SIG (Take, Route, Frequency, Duration) Notes Start Date End Date Status Prolia 60 MG/ML Solution Prefilled Syringe BRING TO DOCTOR OFFICE EVERY 6 MONTHS FOR INJECTION Subcutaneous; Duration: 180 Days Active Calcitriol 0.25 MCG Capsule Oral; Duration: 90 Days Active Torsemide 100 MG Tablet Oral; Duration: 90 Days Active Allopurinol 300 MG Tablet Oral; Duration: 90 Days Active Albuterol Sulfate HFA 108 (90 Base) MCG/ACT Aerosol Solution INHALE 2 PUFFS BY MOUTH EVERY 4 HOURS NEEDED FOR WHEEZING Inhalation; Duration: 16 Days Active Gabapentin 300 MG Capsule TAKE 1 CAPSULE BY MOUTH TWICE DAILY Oral; Duration: 90 Days Active Linzess 290 MCG Capsule TAKE 1 CAPSULE B Y MOUTH DAILY Oral; Duration: 90 Days Active Nitroglycerin 0.4 MG Tablet Sublingual Sublingual; Duration: 10 Days Active Toujeo SoloStar 300 UNIT/ML Solution Pen-injector INJECT UP TO 12 UNITS EVERY MORNING AND INJECT 14 UNITS EVERY NIGHT AT BEDTIME Subcutaneous; Duration: 75 Days Active Dexcom G7 Sensor - Miscellaneous as directed every 10 days; Duration: 90 days 06/24/2025 Active Jardiance 10 MG Tablet Oral; Duration: 30 Days Active Fluticasone Propionate 50 MCG/ACT Suspension SHAKE LIQUID AND USE 2 SPRAYS IN EACH NOSTRIL DAILY Nasal; Duration: 90 Days Active Trulicity 06/24/2025 Active Potassium 06/24/2025 Active Ozempic (0.25 or 0.5 MG/DOSE) 2 MG/3ML Solution Pen-injector 0.5 mg Subcutaneous once a week; Duration: 90 days 06/24/2025 Active Pantoprazole Sodium 40 MG Tablet Delayed Release TAKE 1 TABLET BY MOUTH EVERY DAY Oral; Duration: 90 Days Active Montelukast Sodium 06/24/2025 Active OneTouch Verio - Strip USE TO TEST BLOOD SUGAR THREE TIMES DAILY In Vitro; Duration: 90 Days Active Metoprolol Succinate 06/24/2025 Active Lisinopril 06/24/2025 Active dexAMETHasone 1 MG Tablet 1 tablet Orall y at 10 pm night before 8 am cortisol; Duration: 1 days 06/24/2025 Active Glimepiride 06/24/2025 Active Aspirin 81 81 MG Tablet Delayed Release 1 tablet Orally Once a day; Duration: 30 day(s) 06/24/2025 Active Levothyroxine Sodium 06/24/2025 Active Ipratropium Bruni 06/24/2025 Active BD Pen Needle Meg 2nd Gen 32G X 4 MM Miscellaneous USE WITH INSULIN INJECTIONS TWICE DAILY; Duration: 90 Days Active Rosuvastatin Calcium 20 MG Tablet TAKE 1 TABLET BY MOUTH EVERY DAY Oral; Duration: 90 Days Active Problems Problem Type SNOMED Code ICD Code Onset Dates Problem Status W/U Status Risk Notes Problem Hyperglycemia due to type 2 diabetes mellitus (872111204224178) Type 2 diabetes mellitus with hyperglycemia (E11.65) Active confirmed Problem Long-term current use of insulin (761741544) 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 (Z79.4) Active confirmed Problem Dyslipidemia (406916433) Dyslipidemia (E78.5) Active confirmed Problem Obesity (089583811) Obesity (BMI 30-39.9) (E66.9) Active confirmed Problem 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 E06.3 and Dietary counseling and surveillance Z71.3 Assessments Encounter Date Diagnosis (ICD Code) Assessment Notes Treatment Notes Treatment Clinical Notes Section Notes 06/24/2025 Type 2 diabetes mellitus with hyperglycemia (ICD-10 - E11.65) 06/24/2025 custodial (current) use of insulin (ICD-10 - Z79.4) 06/24/2025 Dyslipidemia (ICD-10 - E78.5) 06/24/2025 Obesity (BMI 30-39.9) (ICD-10 - E66.9) 06/24/2025 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 06/24/2025 Loli Cagle is a female patient with a history of diabetes, heart disease, and recent surgery, presenting for endocrinology follow-up with concerns about medication management and recurrent infections. Type 2 Diabetes MellitusAssessment : Patient has a history of type 2 diabetes mellitus with suboptimal control. Recent A1c was 7.4% (improved from 7.7% in January). Currently on Trulicity and Toujeo insulin (13 units AM, 15 units PM). Patient reports frequent infections, which may be related to poorly controlled blood glucose. Recent discontinuation of Jardiance by another provider, possibly due to concerns about kidney function or recurrent infections.Plan:- Discontinue Trulicity- Start Ozempic (semaglutide) weekly injections - Provided patient education on administration and storage - Informed patient to check with pharmacy for insurance coverage - Discussed [employer] patient assistance program as a backup option- Continue Toujeo insulin at current doses (13 units AM, 15 units PM)- Initiate continuous glucose monitoring - Provided PinkUP G7 sensor and reader device as patient doesn't have a compatible cell phone - Educated patient on sensor application, use of reader, and interpretation of results - Instructed to change sensor every 10 days- Follow up in 4-6 weeks Cardiovascular DiseaseAssessment: Patient has a history of myocardial infarction and coronary artery stents. 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 No recent cardiac symptoms reported.Plan:- Continue current cardiac medications (not specified in transcript)- Emphasized importance of switching from Trulicity to Ozempic due to cardiovascular history Suspected Adrenal excessAssessment: Given patient's history of recurrent infections, recent surgery, and multiple comorbidities, there is concern for possible adrenal insufficiency. Further evaluation is warranted.Plan:- Order cortisol level testing - Patient to take dexamethasone between 10-11 PM night before test - Blood draw to be done between 8-9 AM the following morning- Instructed patient to schedule blood draw with [facility] Thyroid NoduleAssessment: Previous ultrasound from May 2024 showed a 0.8 cm nodule in the right posterior thyroid. Given the small size, no immediate intervention is required.Plan:- Continue monitoring; no immediate biopsy indicated due to small size Peripheral NeuropathyAssessme nt: Patient reports numbness in feet, which may be contributing to falls. Recent toe fracture on June 05, 2025, possibly related to neuropathy and fall risk.Plan:- Emphasize fall prevention strategies (not detailed in transcript)- Consider referral for podiatry evaluation (not explicitly stated in transcript) Osteoporosis RiskAssessment: Given patient's age, gender, and recent fracture, there is concern for possible osteoporosis. Bone density scan is already scheduled for September.Plan:- Await results of scheduled bone density scan in September- Follow up on results at next visit Spent 45 minutes preparing to see the patient (ex review of tests/chart), obtaining and / or reviewing separately obtained history, performing a medically appropriate examination and/or evaluation, counseling and educating the patient/family/car egiver, ordering medications, tests, or procedures, referring and communicating with other health hearing care professional, documenting clinical information in the electronic or other health record, independently interpreting results and communicating results to the patient/family/car egiver and care coordinating patient plan. Patient alert and oriented x 4 and aware of discussion noted above and in agreeance to plan in management of uncontrolled type 2 dm/treatment resistant, hypertension, dyslipidemia, hx of heart disease, hypothyroidism and concern for hypercortisolism. Plan Of Treatment Medication Medication Name Sig Start Date Stop Date Notes Dexcom G7 Sensor - Miscellaneous as directed every 10 days; Duration: 90 days 06/24/2025 Ozempic (0.25 or 0.5 MG/DOSE ) 2 MG/3ML Solution Pen-injector 0.5 mg Subcutaneous once a week; Duration: 90 days 06/24/2025 dexAMETHasone 1 MG Tablet 1 tablet Orall y at 10 pm night before 8 am cortisol; Duration: 1 days 06/24/2025 Treatment Notes Assessment Notes Dietary counseling and surveillance Spent 15 minutes preventative counseling patient on dietary recommendations and changes in setting of hyperglycemia- need to restrict refined sugars and processed foods and incorporate up to 150 minutes of moderate level activity weekly. Other Tsering is a female patient with a history of diabetes, heart disease, and recent surgery, presenting for endocrinology follow-up with concerns about medication management and recurrent infections. Type 2 Diabetes MellitusAssessment: Patient has a history of type 2 diabetes mellitus with suboptimal control. Recent A1c was 7.4% (improved from 7.7% in January). Currently on Trulicity and Toujeo insulin (13 units AM, 15 units PM). Patient reports frequent infections, which may be related to poorly controlled blood glucose. Recent discontinuation of Jardiance by another provider, possibly due to concerns about kidney function or recurrent infections.Plan:- Discontinue Trulicity- Start Ozempic (semaglutide) weekly injections - Provided patient education on administration and storage - Informed patient to check with pharmacy for insurance coverage - Discussed [employer] patient assistance program as a backup option- Continue Toujeo insulin at current doses (13 units AM, 15 units PM)- Initiate continuous glucose monitoring - Provided DexInnohat G7 sensor and reader device as patient doesn't have a compatible cell phone - Educated patient on sensor application, use of reader, and interpretation of results - Instructed to change sensor every 10 days- Follow up in 4-6 weeks Cardiovascular DiseaseAssessment: Patient has a history of myocardial infarction and coronary artery stents. 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 No recent cardiac symptoms reported.Plan:- Continue current cardiac medications (not specified in transcript)- Emphasized importance of switching from Trulicity to Ozempic due to cardiovascular history Suspected Adrenal excessAssessment: Given patient's history of recurrent infections, recent surgery, and multiple comorbidities, there is concern for possible adrenal insufficiency. Further evaluation is warranted.Plan:- Order cortisol level testing - Patient to take dexamethasone between 10-11 PM night before test - Blood draw to be done between 8-9 AM the following morning- Instructed patient to schedule blood draw with [facility] Thyroid NoduleAssessment: Previous ultrasound from May 2024 showed a 0.8 cm nodule in the right posterior thyroid. Given the small size, no immediate intervention is required.Plan:- Continue monitoring; no immediate biopsy indicated due to small size Peripheral NeuropathyAssessment: Patient reports numbness in feet, which may be contributing to falls. Recent toe fracture on June 05, 2025, possibly related to neuropathy and fall risk.Plan:- Emphasize fall prevention strategies (not detailed in transcript)- Consider referral for podiatry evaluation (not explicitly stated in transcript) Osteoporosis RiskAssessment: Given patient's age, gender, and recent fracture, there is concern for possible osteoporosis. Bone density scan is already scheduled for September.Plan:- Await results of scheduled bone density scan in September- Follow up on results at next visit Spent 45 minutes preparing to see the patient (ex review of tests/chart), obtaining and / or reviewing separately obtained history, performing a medically appropriate examination and/or evaluation, counseling and educating the patient/family/caregiver, ordering medications, tests, or procedures, referring and communicating with other health hearing care professional, documenting clinical information in the electronic or other health record, independently interpreting results and communicating results to the patient/family/caregiver and care coordinating patient plan. Patient alert and oriented x 4 and aware of discussion noted above and in agreeance to plan in management of uncontrolled type 2 dm/treatment resistant, hypertension, dyslipidemia, hx of heart disease, hypothyroidism and concern for hypercortisolism. Next Appt Details Follow Up: 2 Months, Reason: labwork Provider Name:Vicky Siddiqi, 09:20:00 AM, [address] [place] [address], [phone], History and Physical Notes * HPI (History of Present Illness) Category Sub-Category Detail Notes Category Not es History of Present Illness 70 yo female comes in as referral by courtesy of Dr. Reynolds for management and evaluation of poorly controlled type 2 DM/treatment resistant (A1C of 7.7%), dyslipidemia, hx of CAD/CKD, obesity and concern for hypercortisolism. Tsering, a female with diabetes, presented for endocrinology follow-up reporting frequent infections, foot numbness causing falls, and a possible toe fracture from June 05. Her medical history includes coronary artery disease with stents, chronic kidney disease, and obstructive sleep apnea requiring CPAP. Recent A1c improved to 7.4% from 7.7% in January. Trulicity was discontinued and replaced with weekly Ozempic injections while continuing Toujeo insulin (13 units AM, 15 units PM). A Freestyle Elias continuous glucose monitor was provided, and cortisol testing was ordered to evaluate for possible hypercortisolism. Chief Complaint Diabetes management, frequent infections, numbness in feet, recent fall with possible toe fracture, history of heart problems History of Present Illness Tsering is a patient with a history of diabetes, heart disease, and kidney problems presenting for follow-up of her diabetes management. She reports frequent infections, including urinary tract infections, which she attributes to toilet paper use. Tsering mentions having heart stents and a history of heart attack, but no strokes. She uses a CPAP machine for sleep which helps, but she still wakes up to urinate. The patient reports numbness in her feet, which she believes contributes to her falls. She mentions fracturing her toe on June 05 after having surgery on June 07. Tsering also sustained an injury to her arm where she tore all this off and there was no skin. She is scheduled for a bone density scan in September due to concerns about osteoporosis. Tsering is currently taking Trulicity weekly on Saturdays, along with Toujeo insulin (13 units in the morning and 15 units in the evening). She was previously on Jardiance but reports it was discontinued by Dr. Rodriguez due to concerns about her kidney function. The patient denies any retinopathy or eye damage based on recent eye tests. Medical History - Diabetes mellitus - Coronary artery disease with history of myocardial infarction and multiple stent placements - Chronic kidney disease - Obstructive sleep apnea, using CPAP - Peripheral neuropathy - History of falls - Possible osteoporosis (pending bone density scan) Surgical History - Multiple cardiac stent placements in both arms - Heart surgery (type unspecified) Medications and Supplements - Jardiance - Discontinued due to frequent infections - Trulicity - Taken every Tuesday - Toujeo - 13 units in the morning and 15 units in the evening - Insulin Social History - Living Situation: Lives independently, requires some assistance from a worker for appointment tracking - Transportation: Uses [employer] for medical appointments - Technology Use: Has a basic cell phone ([employer]ibe [employer] phone), not a smartphone - Social Support: Has a worker who helps keep track of appointments Review of Systems General: Positive for frequent infections. Skin: Positive for skin infections. HEENT: Negative for vision changes. Cardiovascular: Negative for recent heart attacks or strokes. Genitourinary: Positive for frequent urination. Musculoskeletal: Positive for falls, numbness in feet. Neurological: Positive for numbness in feet. Physical Examination Skin: Few stretch call noted, not super dark. Wound observed on arm where skin was torn off. Musculoskeletal: Possible fractured toe observed. Laboratory, Imaging, and Diagnostic Test Results - Date: 01/2025 - Hemoglobin A1c: 7.7% - TSH: 0.24 - T4: 1.4 - Previous results: - Hemoglobin A1c: 7.4% (06/13/2025) - Thyroid ultrasound (05/2024): 0.8 cm nodule in right posterior thyroid - Bone density scan: Scheduled for September 2025 Complications: positive CAD with hx of stent placement, no stroke last eye exam: no retinopathy last foot exam: positive neuropathy, no sores, ulcers or amputations Examination Category Sub-Category Detail Notes Category Not es Physical Exam SPC General: no acute distress obese female Eyes: pupil equal and reac tive to light, conjunctiva pink Ear, Nose, and Throat: No erythema poste rior Pharynx,, tympanic membrane normal Neck/Thyroid: neck supple, no thyr oid enlargement noticed Lymphatics: no palpable lymph no de in neck Cardiac: regular, rate and rh ythm Lung: clear to auscultatio n Abdomen: soft, non tender, no n distended, bowel sounds present Musculoskeletal normal range of vince on Extremities: no edema Neurologic: alert oriented Progress Notes * Tsering GARZADOB:1955 (70 yo F)Acc No.[id number]:06/24/2025 Progress Notes Patient: Tsering Garcia Provider: Jarret Siddiqi MD :1955 A ge:70 Y S ex:Female Date:06/24/2025 Phone: Address:[facility] [place], [place] [id number] Subjective: * Chief Complaints: * 1 . EST CARE. * HPI: H istory of Present Illness: 70 yo female comes in as referral by courtesy of Dr. Reynolds for management and evaluation of poorly controlled type 2 DM/treatment resistant (A1C of 7.7%), dyslipidemia, hx of CAD/CKD, obesity and concern for hypercortisolism. Tsering, a female with diabetes, presented for endocrinology follow-up reporting frequent infections, foot numbness causing falls, and a possible toe fracture from June 05. Her medical history includes coronary artery disease with stents, chronic kidney disease, and obstructive sleep apnea requiring CPAP. Recent A1c improved to 7.4% from 7.7% in January. Trulicity was discontinued and replaced with weekly Ozempic injections while continuing Toujeo insulin (13 units AM, 15 units PM). A [employer] Elias continuous glucose monitor was provided, and cortisol testing was ordered to evaluate for possible hypercortisolism. Chief Complaint Diabetes management, frequent infections, numbness in feet, recent fall with possible toe fracture, history of heart problems History of Present Illness Tsering is a patient with a history of diabetes, heart disease, and kidney problems presenting for follow-up of her diabetes management. She reports frequent infections, including urinary tract infections, which she attributes to toilet paper use. Tsering mentions having heart stents and a history of heart attack, but no strokes. She uses a CPAP machine for sleep which helps, but she still wakes up to urinate. The patient reports numbness in her feet, which she believes contributes to her falls. She mentions fracturing her toe on June 05 after having surgery on June 07. Tsering also sustained an injury to her arm where she tore all this off and there was no skin. She is scheduled for a bone density scan in September due to concerns about osteoporosis. Tsering is currently taking Trulicity weekly on Saturdays, along with Toujeo insulin (13 units in the morning and 15 units in the evening). She was previously on Jardiance but reports it was discontinued by Dr. Rodriguez due to concerns about her kidney function. The patient denies any retinopathy or eye damage based on recent eye tests. Medical History - Diabetes mellitus - Coronary artery disease with history of myocardial infarction and multiple stent placements - Chronic kidney disease - Obstructive sleep apnea, using CPAP - Peripheral neuropathy - History of falls - Possible osteoporosis (pending bone density scan) Surgical History - Multiple cardiac stent placements in both arms - Heart surgery (type unspecified) Medications and Supplements - Jardiance - Discontinued due to frequent infections - Trulicity - Taken every Tuesday - Toujeo - 13 units in the morning and 15 units in the evening - Insulin Social History - Living Situation: Lives independently, requires some assistance from a worker for appointment tracking - Transportation: Uses [employer] for medical appointments - Technology Use: Has a basic cell phone ([employer] phone), not a smartphone - Social Support: Has a worker who helps keep track of appointments Review of Systems General: Positive for frequent infections. Skin: Positive for skin infections. HEENT: Negative for vision changes. Cardiovascular: Negative for recent heart attacks or strokes. Genitourinary: Positive for frequent urination. Musculoskeletal: Positive for falls, numbness in feet. Neurological: Positive for numbness in feet. Physical Examination Skin: Few stretch call noted, not super dark. Wound observed on arm where skin was torn off. Musculoskeletal: Possible fractured toe observed. Laboratory, Imaging, and Diagnostic Test Results - Date: 01/2025 - Hemoglobin A1c: 7.7% - TSH: 0.24 - T4: 1.4 - Previous results: - Hemoglobin A1c: 7.4% (06/13/2025) - Thyroid ultrasound (05/2024): 0.8 cm nodule in right posterior thyroid - Bone density scan: Scheduled for September 2025 Complications: positive CAD with hx of stent placement, no stroke last eye exam: no retinopathy last foot exam: positive neuropathy, no sores, ulcers or amputations. * ROS: G eneral: Fatigue a dmits. N o F ever. S leep disturbance?admits. W eakness a dmits. E ye: No C hange in vision. E NT: No C hange in hearing. R espiratory: Yes C ough. Y es S hortness of breath. ? C ardiovascular: No C hest pain. I rregular heartbeat a dmits. N o P alpitations. G astrointestinal: No A bdominal pain. Y es C onstipation. Y es?Diarrhea. N o N ausea. N o V omiting. G enitourinary: No F requent urination. N o P ainful urination.? M usculoskeletal: No B ack pain. N o M uscle aches. N o N brennon pain. N o P ainful joints. N eurologic: No D izziness. N o H eadache. P sychiatric: Anxiety a dmits. N o R ecent mood changes. ? A llergy / Immunology: Patient denies h verito, itching, rash. O phthalmologic: Patient denies b lurry vision, discharge, red eye(s). P atient complains of d ouble vision. N o C hange in vision. E ndocrine: Patient denies c old intolerance, hair loss. n o C old intolerance. n o D izziness. n o E xcessive sweating. n o E xcessive thirst. n o F requent urination. H air loss y es. n o H eat intolerance. n o H ot flashes. n o I rregular menses. n o W eakness. n o W eight loss.? B reast: Patient denies b loody nipple discharge, breast pain, breast swelling. n o B loody nipple discharge. n o B reast lump or mass. n o B reast pain. n o B reast swelling. n o F ever. n o N ipple discharge. n o?Persistent breast pain. n o R ed skin. H ematology: Patient denies e asy bleeding, easy bruising, recent transfusion. E asy bleeding a dmits. E asy bruising a dmits. G ynecology: Patient denies a bnormal bleeding, hot flashes, pelvic pain. A bnormal bleeding N o. B reast lump N o. B reast pain N o. D ischarge from the breast N o. H eavy bleeding during menses N o. H ot flashes N o. I rregular menses N o. M issed periods N o. P ainful intercourse N o. P ainful menses N o. P elvic pain N o. V aginal bleeding between periods N o. V aginal discharge / itching N o. I nterval between periods is more than 35 days N o. P eriods lasting more than 7 days N o. H aving a period in the past 6 months N o. V aginal odor N o. F H of breast cancer N o. C ontraception N o. S exually active?Yes. S coretta partner as last visit Y es. P eripheral Vascular: Patient denies b lanching of skin, cold extremities, decreased sensation in extremities. P odiatric: Patient denies a nkle pain, foot pain, sole pain. ? S kin: Patient complains of S KIN TEAR. n o A cne. n o?Changing moles. n o E czema. n o I tching. n o M ole(s). n o R juanjo. n o S kin cancer. G eneral PWC: no C hange in appetite. n o C hills. n o F atigue. n o F ever. n o H eadache. n o L ightheadedness. n o N ight sweats. n o S leep disturbance. n o W eight gain. n o W eight loss. n o?Weakness. G eneral health is good y es. E NT PWC: no B locked ear(s). n o C hange in hearing. n o?Decreased sense of smell. n o D ifficulty in swallowing. n o D ry mouth. n o E ar pain. n o H oarseness. n o M ass. n o N bertha congestion. n o Nosebleed. n o P ain. n o R inging in the ears. n o S cratchy throat.?no S inus pain. n o S inus problems. n o S neezing. n o S ore throat. n o S wollen glands. R espiratory PWC: no C hest pain. n o C hest tightness. n o C hronic cough. n o C ough. n o H emoptysis. n o P ain with inspiration. n o S hortness of breath. n o S hortness of breath at rest. n o S hortness of breath with exertion. n o S putum production. n o W heezing. C ardiovascular PWC: no C hest pain. n o C hest pain at rest. n o?Chest pain with exertion. n o C laudication. n o C ongenital heart problems. n o C yanosis. n o D ifficulty laying flat. n o D izziness. n o D yspnea on exertion. n o F luid accumulation in the legs. n o H eart murmur. n o H igh blood pressure. n o I rregular heartbeat. n o O rthopnea. n o O ther vascular anomalies. n o P alpitations. n o R heumatic fever. n o S hortness of breath. n o S welling in hands / feet. n o W eakness. n o W eight gain. G astrointestinal PWC: no A bdominal pain. n o B lood in stool. n o?Change in bowel habits. n o C olitis. n o C onstipation. n o D ecreased appetite. n o D iarrhea. n o D ifficulty swallowing. n o E xposure to hepatitis. n o H eartburn. n o H epatitis. n o J aundice. n o N ausea. n o R ectal bleeding. n o S tomach problems. n o V omiting. n o W eight loss. G enitourinary PWC: no A bdominal pain / swelling. n o B lood in the urine. n o D ifficulty urinating. n o F requent urination. n o S tress Incontinence. n o P ainful urination. n o P oor urine output. n o S ymptoms of urinary tract infection. M usculoskeletal PWC: no A rthritis / arthralgia. n o B ack pain. n o?Back problems. n o H istory of gout. n o J oint stiffness. n o L eg cramps. n o L imping gait. n o M uscle aches. n o M uscle spasms. n o N brennon pain. n o P ain in shoulder(s). n o P ainful joints. n o S ciatica.?no S wollen joints. n o T rauma to arm(s). n o T rauma to hip(s). n o?Trauma to knee(s). n o T rauma to ankle(s). n o W eakness. N eurologic PWC: no B alance difficulty. n o D ifficulty speaking.?no D izziness. n o F ainting. n o G ait abnormality. n o H eadache.?no I rritability. n o L oss of strength. n o L oss of use of extremity. no L ow back pain. n o M tiana loss. n o P ain. n o P aralysis. n o S eizures. n o S troke. n o T ic. n o T ingling / numbness. n o?Transient loss of vision. n o T remor. P sychiatric PWC: no A nxiety. n o A uditory / visual hallucinations.?no D elusions. n o R ecent mood changes. n o D ifficulty sleeping. n o?Eating disorder. n o L oss of appetite. n o M ental or physical abuse. n o Mood disorder. n o N ervous breakdown. n o S tressors. n o S ubstance abuse. n o S uicidal thoughts. G ynecology PWC: no A bnormal bleeding. n o B reast lump. n o?Breast pain. n o D ischarge from the breast. n o H eavy bleeding during menses.?no H ot flashes. n o I rregular menses. n o M issed periods. n o P ainful intercourse. n o P ainful menses. n o P elvic pain. n o V aginal bleeding between periods. n o V aginal discharge / itching. n o I nterval between periods is more than 35 days. n o P eriods lasting more than 7 days. n o H aving a period in the past 6 months. n o V aginal odor. n o F H of breast cancer. n o C ontraception. n o S exually active. n o S coretta partner as last visit. B reast PWC: no B loody nipple discharge. n o B reast lump or mass. n o B reast pain. n o B reast swelling. n o F ever. n o N ipple discharge. n o P ersistent breast pain. n o R ed skin. A llergy PWC: no B listering skin. n o C ongestion. n o C ough. n o H verito. n o I tching. n o R juanjo. n o R ecurrent serious infections. n o S easonal allergies. n o S neezing. n o U nusual reaction to medication(s), food, animals or insects. n o W atery eyes. n o W heezing. E ndocrine PWC: no C old intolerance. n o D izziness. n o E xcessive sweating. n o E xcessive thirst. n o F requent urination. n o H air loss. n o H eat intolerance. n o H ot flashes. n o I rregular menses. n o W eakness. n o W eight loss. G astroenterology PWC: no N ausea. n o H eartburn. n o S tool incontinence. n o R eflux. n o A bdominal pain. n o I ndigestion. n o H emorrhoids. n o H iatal hernia. n o U lcers. n o A nal fissures. n o?Hepatitis. n o G allstones. n o R ed blood after bowel movements. n o V omiting. n o B loating/belching. n o D ifficulty swallowing. n o D iarrhea.?no C onstipation. n o C hange in bowel habits. n o B lood in stool. ? U rology PWC: no D ifficulty urinating. n o B lood in urine. n o U rinary urgency. n o F requent urination. n o U rinary incontinence. n o V oiding dysfunction. n o V ulvodynia. n o D ysparaunia. n o R ecurrent UTI. n o W eak flow. n o D ribbling after urination. n o F requent bladder infections. n o K idney stone. n o K idney disease. n o U rine hesitancy.?no P ainful urination. C onstitutional PWC: no N o weight gain. n o L oss of appetite. n o?Fever. n o W eakness. n o W eight loss. n o N ight sweats. n o N ausea. n o V isual changes. n o C hange in sleep patterns. H +p reviewed y es. n o C hange in activity capacity. F emale Reproductive PWC: no H eavy periods. n o D ysparaunia. n o S exually active. n o P remenstrual syndrome. n o D ysmenorrhea. n o I nfertility. n o F requent yeast infections. n o V aginal itching. n o I ntermenstrual bleeding. n o P ost coital bleeding. n o P ostmenopausal bleeding. n o P elvic pain. n o M enstral cycle. n o V aginal discharge. n o V aginal dryness. n o O varian cysts. No fibroids. n o D ischarge from breast. n o A bn. Bleeding between cycles. n o P ostmenopausal symptoms. n o L oss of sexual interest.?no P ainful sexual intercourse. n o E ndometriosis. n o V aginal warts. n o A bnormal pap. n o I rregular periods. n o A bnormal vaginal discharge. n o H ot flashes. H ematology/lymph PWC: no S wollen glands. n o F atigue. n o L oss of appetite. n o E asy bruising. n o E asy bleeding. n o A nemia. ? s noring falls. * Medical History: * Family History: Zac menjivar: diagnosed with Diabetes. Leticia parekh: diagnosed with Diabetes. * Social History: Social History Verified. No Social History documented. * Medications: T aking Jardiance 10 MG Tablet Oral , Taking Fluticasone Propionate 50 MCG/ACT Suspension SHAKE LIQUID AND USE 2 SPRAYS IN EACH NOSTRIL DAILY Nasal , Taking Linzess 290 MCG Capsule TAKE 1 CAPSULE BY MOUTH DAILY Oral , Taking Gabapentin 300 MG Capsule TAKE 1 CAPSULE BY MOUTH TWICE DAILY Oral , Taking Toujeo SoloStar 300 UNIT/ML Solution Pen-injector INJECT UP TO 12 UNITS EVERY MORNING AND INJECT 14 UNITS EVERY NIGHT AT BEDTIME Subcutaneous , Taking Nitroglycerin 0.4 MG Tablet Sublingual Sublingual , Taking Albuterol Sulfate HFA 108 (90 Base) MCG/ACT Aerosol Solution INHALE 2 PUFFS BY MOUTH EVERY 4 HOURS NEEDED FOR WHEEZING Inhalation , Taking Allopurinol 300 MG Tablet Oral , Taking Calcitriol 0.25 MCG Capsule Oral , Taking Prolia 60 MG/ML Solution Prefilled Syringe BRING TO DOCTOR OFFICE EVERY 6 MONTHS FOR INJECTION Subcutaneous , Taking Torsemide 100 MG Tablet Oral , Taking BD Pen Needle Meg 2nd Gen 32G X 4 MM Miscellaneous USE WITH INSULIN INJECTIONS TWICE DAILY , Taking Rosuvastatin Calcium 20 MG Tablet TAKE 1 TABLET BY MOUTH EVERY DAY Oral , Taking Aspirin 81 81 MG Tablet Delayed Release 1 tablet Orally Once a day , Taking Glimepiride , Taking Ipratropium [place] , Taking Levothyroxine Sodium , Taking Lisinopril , Taking Metoprolol Succinate , Taking Montelukast Sodium , Taking Pantoprazole Sodium 40 MG Tablet Delayed Release TAKE 1 TABLET BY MOUTH EVERY DAY Oral , Taking OneTouch Verio - Strip USE TO TEST BLOOD SUGAR THREE TIMES DAILY In Vitro , Taking Potassium , Taking Trulicity * Allergies: N .K.D.A. Allergies Verified. Objective: * Vitals: H t:62in, Wt:180.0lbs, BMI:32.92Index, BP:103/64mm Hg, HR:82/min, Oxygen sat %:92%, Wt-k.65 kg, Ht-cm: 157.48 cm, Body Surface Area: 1.89. * Examination: P hysical Exam SPC: General: n o acute distress obese female. Eyes: p upil equal and reactive to light, conjunctiva pink.? Ear, Nose, and Throat: N o erythema posterior Pharynx,, tympanic membrane normal. Neck/Thyroid: n brennon supple, no thyroid enlargement noticed.? Lymphatics: n o palpable lymph node in neck. Cardiac: r egular, rate and rhythm. Lung: c lear to auscultation. Abdomen: s oft, non tender, non distended, bowel sounds present. Musculoskeletal n ormal range of motion. Extremities: n o edema. Neurologic: a lert oriented. Assessment: * Assessment: 1. T ype 2 diabetes mellitus with hyperglycemia - E11.65 (Primary) 2 . L serjio term (current) use of insulin - Z79.4 3 . D yslipidemia - E78.5 ?4. O besity (BMI 30-39.9) - E66.9 5 . 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 D ietary counseling and surveillance - Z71.3 ? Plan: * Treatment: 2. L serjio term (current) use of insulin Start Dexcom G7 Sensor Miscellaneous, -, as directed every 10 days, 90 days, 9, Refills 1. ? 3. O besity (BMI 30-39.9) Start dexAMETHasone Tablet, 1 MG, 1 tablet, Orally, at 10 pm night before 8 am cortisol, 1 days, 1, Refills 1. 4. D ietary counseling and surveillance Notes: Spent 15 minutes preventative counseling patient on dietary recommendations and changes in setting of hyperglycemia- need to restrict refined sugars and processed foods and incorporate up to 150 minutes of moderate level activity weekly. 5. O thers Notes: Tsering is a female patient with a history of diabetes, heart disease, and recent surgery, presenting for endocrinology follow-up with concerns about medication management and recurrent infections. Type 2 Diabetes MellitusAssessment: Patient has a history of type 2 diabetes mellitus with suboptimal control. Recent A1c was 7.4% (improved from 7.7% in January). Currently on Trulicity and Toujeo insulin (13 units AM, 15 units PM). Patient reports frequent infections, which may be related to poorly controlled blood glucose. Recent discontinuation of Jardiance by another provider, possibly due to concerns about kidney function or recurrent infections.Plan:- Discontinue Trulicity- Start Ozempic (semaglutide) weekly injections - Provided patient education on administration and storage - Informed patient to check with pharmacy for insurance coverage - Discussed [employer] patient assistance program as a backup option- Continue Toujeo insulin at current doses (13 units AM, 15 units PM)- Initiate continuous glucose monitoring - Provided Dexcom G7 sensor and reader device as patient doesn't have a compatible cell phone - Educated patient on sensor application, use of reader, and interpretation of results - Instructed to change sensor every 10 days- Follow up in 4-6 weeks Cardiovascular DiseaseAssessment: Patient has a history of myocardial infarction and coronary artery stents. 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 No recent cardiac symptoms reported.Plan:- Continue current cardiac medications (not specified in transcript)- Emphasized importance of switching from Trulicity to Ozempic due to cardiovascular history Suspected Adrenal excessAssessment: Given patient's history of recurrent infections, recent surgery, and multiple comorbidities, there is concern for possible adrenal insufficiency. Further evaluation is warranted.Plan:- Order cortisol level testing - Patient to take dexamethasone between 10-11 PM night before test - Blood draw to be done between 8-9 AM the following morning- Instructed patient to schedule blood draw with [facility] Thyroid NoduleAssessment: Previous ultrasound from May 2024 showed a 0.8 cm nodule in the right posterior thyroid. Given the small size, no immediate intervention is required.Plan:- Continue monitoring; no immediate biopsy indicated due to small size Peripheral NeuropathyAssessment: Patient reports numbness in feet, which may be contributing to falls. Recent toe fracture on June 05, 2025, possibly related to neuropathy and fall risk.Plan:- Emphasize fall prevention strategies (not detailed in transcript)- Consider referral for podiatry evaluation (not explicitly stated in transcript) Osteoporosis RiskAssessment: Given patient's age, gender, and recent fracture, there is concern for possible osteoporosis. Bone density scan is already scheduled for September.Plan:- Await results of scheduled bone density scan in September- Follow up on results at next visit Spent 45 minutes preparing to see the patient (ex review of tests/chart), obtaining and / or reviewing separately obtained history, performing a medically appropriate examination and/or evaluation, counseling and educating the patient/family/caregiver, ordering medications, tests, or procedures, referring and communicating with other health hearing care professional, documenting clinical information in the electronic or other health record, independently interpreting results and communicating results to the patient/family/caregiver and care coordinating patient plan. Patient alert and oriented x 4 and aware of discussion noted above and in agreeance to plan in management of uncontrolled type 2 dm/treatment resistant, hypertension, dyslipidemia, hx of heart disease, hypothyroidism and concern for hypercortisolism. * Procedure Codes: 9 9401 P/M CORRECTION OFFICER, INDIV 15 MIN, 44259 GLUC MONITOR, CONT, PHYS I&R * Follow Up: 2 Months (Reason: labwork) Billing Information: * Visit Code: 62897 Office Visit, New Pt., Level 4. * Procedure Codes: 58394 P/M CORRECTION OFFICER, INDIV 15 MIN. 85943 GLUC MONITOR, CONT, PHYS I&R. * Sign off status: Completed true * Provider: Jarret Siddiqi MD Date: 0 06/24/2025 Generated for Danny wright/Asmita/Wendi on: 0 06/25/2025 11:20 AM CDT
--- OUTSIDE RECORDS SUMMARY | 2025-06-25 11:20 | XMS_ITS | Patient Health Record ---
Author Organization [facility] MENA PRESTIGE Address [address] [facility] [address] [place] [address] Care Team Providers Care Sanipractic Physician Name Role Phone Solitario Connell Unavailable [phone] Reason For Referral No Information Plan Of Treatment No Information
--- OUTSIDE RECORDS SUMMARY | 2025-06-25 11:20 | XMS_ITS | Patient Health Record ---
Author Organization [facility] Address [address] [facility] [address] [place] [address] Care Team Providers Care Gamb Cutter Name Role Phone Vicky Siddiqi Unavailable [phone] Allergies No Known Allergies Reason For Referral No Information Medications Medication SIG (Take, Route, Frequency, Duration) Notes Start Date End Date Status Prolia 60 MG/ML Solution Prefilled Syringe BRING TO DOCTOR OFFICE EVERY 6 MONTHS FOR INJECTION Subcutaneous; Duration: 180 Days Active Calcitriol 0.25 MCG Capsule Oral; Duration: 90 Days Active BD Pen Needle Meg 2nd Gen 32G X 4 MM Miscellaneous USE WITH INSULIN INJECTIONS TWICE DAILY; Duration: 90 Days Active Torsemide 100 MG Tablet Oral; Duration: 90 Days Active Trulicity 06/24/2025 Active Potassium 06/24/2025 Active Gabapentin 300 MG Capsule TAKE 1 CAPSULE BY MOUTH TWICE DAILY Oral; Duration: 90 Days Active Linzess 290 MCG Capsule TAKE 1 CAPSULE B Y MOUTH DAILY Oral; Duration: 90 Days Active Nitroglycerin 0.4 MG Tablet Sublingual Sublingual; Duration: 10 Days Active Ozempic (0.25 or 0.5 MG/DOSE) 2 MG/3ML Solution Pen-injector 0.5 mg Subcutaneous once a week; Duration: 90 days 06/24/2025 Active Toujeo SoloStar 300 UNIT/ML Solution Pen-injector INJECT UP TO 12 UNITS EVERY MORNING AND INJECT 14 UNITS EVERY NIGHT AT BEDTIME Subcutaneous; Duration: 75 Days Active Dexcom G7 Sensor - Miscellaneous as directed every 10 days; Duration: 90 days 06/24/2025 Active Allopurinol 300 MG Tablet Oral; Duration: 90 Days Active Albuterol Sulfate HFA 108 (90 Base) MCG/ACT Aerosol Solution INHALE 2 PUFFS BY MOUTH EVERY 4 HOURS NEEDED FOR WHEEZING Inhalation; Duration: 16 Days Active dexAMETHasone 1 MG Tablet 1 tablet Orall y at 10 pm night before 8 am cortisol; Duration: 1 days 06/24/2025 Active Pantoprazole Sodium 40 MG Tablet Delayed Release TAKE 1 TABLET BY MOUTH EVERY DAY Oral; Duration: 90 Days Active Montelukast Sodium 06/24/2025 Active Jardiance 10 MG Tablet Oral; Duration: 30 Days Active OneTouch Verio - Strip USE TO TEST BLOOD SUGAR THREE TIMES DAILY In Vitro; Duration: 90 Days Active Fluticasone Propionate 50 MCG/ACT Suspension SHAKE LIQUID AND USE 2 SPRAYS IN EACH NOSTRIL DAILY Nasal; Duration: 90 Days Active Rosuvastatin Calcium 20 MG Tablet TAKE 1 TABLET BY MOUTH EVERY DAY Oral; Duration: 90 Days Active Glimepiride 06/24/2025 Active Aspirin 81 81 MG Tablet Delayed Release 1 tablet Orally Once a day; Duration: 30 day(s) 06/24/2025 Active Levothyroxine Sodium 06/24/2025 Active Ipratropium [place] 06/24/2025 Active Metoprolol Succinate 06/24/2025 Active Lisinopril 06/24/2025 Active Problems Problem Type SNOMED Code ICD Code Onset Dates Problem Status W/U Status Risk Notes Problem Hyperglycemia due to type 2 diabetes mellitus (704264753656735) Type 2 diabetes mellitus with hyperglycemia (E11.65) Active confirmed Problem Long-term current use of insulin (633597940) exterminator helper termite (current) use of insulin (Z79.4) Active confirmed Problem Dyslipidemia (892001301) Dyslipidemia (E78.5) Active confirmed Problem Obesity (557436152) Obesity (BMI 30-39.9) (E66.9) Active confirmed Problem Hypothyroidism due to Avelina thyroiditis (054797791) Hypothyroidism due to Avelina thyroiditis (E06.3) Active confirmed Vital Signs Heart Rate 82 /min 06/24/2025 Height-cm 157.48 cm 06/24/2025 Oximetry 92 % 06/24/2025 Blood pressure diastolic 64 mm Hg 06/24/2025 Weight-kg 81.65 kg 06/24/2025 Height 62 in 06/24/2025 Blood pressure systolic 103 mm Hg 06/24/2025 Weight 180.0 lbs 06/24/2025 BMI 32.92 kg/m2 06/24/2025 Encounters Encounter Location Date Provider Diagnosis [facility] Siddiqi [address] [place] [address] 06/24/2025 Vicky Siddiqi Type 2 diabetes tisha litus with hyperglycemia E11.65 ; exterminator helper termite (current) use of insulin Z79.4 ; Dyslipidemia E78.5 ; Obesity (BMI 30-39.9) E66.9 ; Hypothyroidism due to Avelina thyroiditis E06.3 and Dietary counseling and surveillance Z71.3 Assessments Encounter Date Diagnosis (ICD Code) Assessment Notes Treatment Notes Treatment Clinical Notes Section Notes 06/24/2025 skilled nursing (current) use of insulin (ICD-10 - Z79.4) 06/24/2025 Type 2 diabetes mellitus with hyperglycemia (ICD-10 - E11.65) 06/24/2025 Dyslipidemia (ICD-10 - E78.5) 06/24/2025 Obesity [...] with pharmacy for insurance coverage - Discussed [employer] patient assistance program as a backup option- Continue Toujeo insulin at current doses (13 units AM, 15 units PM)- Initiate continuous glucose monitoring - Provided DexVoxeo G7 sensor and reader device as patient doesn't have a compatible cell phone - Educated patient on sensor application, use of reader, and interpretation of results - Instructed to change sensor every 10 days- Follow up in 4-6 weeks Cardiovascular DiseaseAssessment: Patient has a history of myocardial infarction and coronary artery stents. 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 No recent cardiac symptoms reported.Plan:- Continue current [...] Instructed patient to schedule blood draw with [facility] Thyroid NoduleAssessment: Previous ultrasound from May 2024 [...] procedures, referring and communicating with other health care specialist, documenting clinical information in the electronic or [...] and concern for hypercortisolism. Plan Of Treatment Next Appt Details Provider Name:Vicky Siddiqi, 09:20:00 AM, [address] [place], [address], Insurance Providers Payer Name Payer Address Payer Phone Subscriber Number Group Number Insured Name Patient Relationship to Insured Coverage Start Date Coverage End Date [facility] ([facility]) [address] [address] [place] [address] [id number] Tsering Parham Self - patient is the insured Medical (General) History Medical History History ICD Code diabeties
--- OUTSIDE RECORDS SUMMARY | 2025-06-25 11:20 | XMS_ITS ---
Author Organization [facility] Address [address] [facility] [address] [facility] [address] [place] [address] Care Team Providers Care Public Relations Analyst Name Role Phone Damian Rodriguez Unavailable [phone] Encounters Encounter Location Date Provider Diagnosis [place] [facility] [address] [facility] [address] [place] [address] 03/22/2025 Damian Rodriguez Chronic kidney disea se, [...] Notes * CRISSY GARZADOB:1955 (70 yo F)Acc No.[id number]:03/22/2025 Patient: CRISSY RUIZ Provider: Deepika ABDI MD, F.Kael.C.P, F.A.S.N. :1955 A ge:69 Y S ex:Female Date:03/22/2025 Address:[facility] [address] [facility] Subjective: * Chief Complaints: Objective: Assessment: * [...] Plan: * Billing Information: * Visit Code: 66218 Office Visit, Est Pt., Level 5. * Procedure Codes: * Electronic signature of Raphael Rodriguez MD on 06/25/2025 at 11:20 AM CDT Sign off status: Pending * Provider: Deepika ABDI MD, F.Kael.C.P, F.A.S.N. Date: 0 03/22/2025 Generated for Printing/Faxing/eTransmitting on: 0 06/25/2025 11:20 AM CDT
--- OUTSIDE RECORDS SUMMARY | 2025-06-25 11:20 | XMS_ITS | Clinical Summary ---
Author Organization [facility] [address] [place] [address] Care Team Providers Care Photograph Retoucher Name Role Phone Khalif Reynolds MD Primary Care Provide r Chriss Hendrickson MD Unavailable [phone] Zaid Adams MD Unavailable [phone] Nadir Ross MD Unavailable Asad Aldridge MD Unavailable [phone] Allergies Active Allergy Reactions Criticality Noted Date Comments Doxycycline Hives Medium 12/12/2020 Levofloxacin Hives,Rash Medium 08/16/2014 Levaquin Sulfa (Sulfonamide Antibiotics) Rash,Hives Medium 01/2014 Medications calcitRIOL (ROCALTROL) 0.25 mcg capsuleIndicatio ns:Vitamin D Deficiency,hypoc alcemia Take 1 capsule (0.25 mcg total) by mouth 2 (two) times a day Active lisinopril (PRINIVIL,ZESTRI L) 2.5 mg tabletIndication s:hypertension Take 1 tablet (2.5 mg total) by mouth daily after lunch Active metoprolol (LOPRESSOR) 25 mg tabletIndication s:hypertension Take 1 tablet (25 mg total) by mouth 2 (two) times a day Active montelukast (SINGULAIR) 10 mg tabletIndication s:Maintenance Therapy for Asthma Take 1 tablet (10 mg total) by mouth daily before lunch Active nitroglycerin (NITROSTAT) 0.[address] 1 tablet (0.4 mg total) under the tongue every 5 (five) minutes as needed for chest pain Emergency use Active pantoprazole DR (PROTONIX) 40 mg EC tabletIndication s:Treatment of Non-Bleeding Gastric Disorder Take 1 tablet (40 mg total) by mouth every morning Active linaclotide (LINZESS) 290 mcg capsuleIndicatio ns:functional constipation Take 1 capsule (290 mcg total) by mouth nightly Active fluticasone propionate (FLONASE) 50 mcg/actuation nasal sprayIndications :Allergic Conjunctivitis,A llergic Rhinitis Administer 2 sprays into each nostril every morning 020 Active BD Ultra-Fine Meg Pen Needle 32 gauge x /32 needle 022 Active allopurinoL (ZYLOPRIM) 300 mg tabletIndication s:prevention of acute gout attack,states she has neuropathy Take 1 tablet (300 mg total) by mouth every morning 022 Active glimepiride (AMARYL) 2 mg tabletIndication s:type 2 diabetes mellitus Take 1 tablet (2 mg total) by mouth 2 (two) times a day before breakfast and dinner 023 Active gabapentin (NEURONTIN) 300 mg capsuleIndicatio ns:Neuropathic Pain Take 1 capsule (300 mg total) by mouth 2 (two) times a day 023 Active potassium chloride ER 20 mEq CR tabletIndication s:supplement Take 1 tablet (20 mEq total) by mouth director of early childhood education before breakfast 023 Active Prolia 60 mg/mL syringeIndicatio ns:postmenopausa l osteoporosis and high fracture risk Inject under the skin once Every 6 months for bone health 023 Active levothyroxine (SYNTHROID) 25 mcg tabletIndication s:hypothyroidism Take 1 tablet (25 mcg total) by mouth director of early childhood education before breakfast 023 Active ipratropium (ATROVENT) 0.02 % nebulizer solution Take 2.5 mL (0.5 mg total) by nebulization director of early childhood education before breakfast 023 Active Jardiance 10 mg tabletIndication s:type 2 diabetes mellitus Take 1 tablet (10 mg total) by mouth director of early childhood education before breakfast Active rosuvastatin (CRESTOR) 40 mg tabletIndication s:hyperlipidemia Take 1 tablet (40 mg total) by mouth nightly 11/07/2 024 Active ipratropium-albu teroL (COMBIVENT RESPIMAT) 20-100 mcg/actuation inhalerIndicatio ns:Chronic Obstructive Pulmonary Disease with Bronchospasms Inhale 1 puff 4 (four) times a day as needed for wheezing 4 g 11 2024 Active torsemide (DEMADEX) 100 mg tabletIndication s:Edema Take 1 tablet (100 mg total) by mouth 2 (two) times a day Active Trulicity 3 mg/0.5 mL pen injectorIndicati ons:type 2 diabetes mellitus Inject 0.5 mL (3 mg total) under the skin once a week Saturdays Active cetirizine (ZyrTEC) 10 mg tabletIndication s:Allergic Conjunctivitis,A llergic Rhinitis Take 1 tablet (10 mg total) by mouth director of early childhood education before breakfast Active OneTouch Delica Plus Lancet 33 gauge misc USE TO TEST THREE TIMES DAILY Active lidocaine (LIDODERM) 5 %Indications:Alvarado ropathic Pain Place 1 patch on the skin director of early childhood education before breakfast Active meloxicam (MOBIC) 7.5 mg tabletIndication s:Osteoarthritis Take 1 tablet (7.5 mg total) by mouth 2 (two) times a day as needed for pain Active PopJaxTouch Verio test strips strip as directed Active TOUJEO 300 unit/mL (1.5 mL) pen for injection Inject 13 Units under the skin 2 (two) times a day 13 Units in the morning and 15 units in the Evening Active aspirin 81 mg chewable tabletIndication s:prevention of thrombosis Take 1 tablet (81 mg total) by mouth director of early childhood education before breakfast Active senna (SENOKOT) 8.6 mg tablet Take 1 tablet by mouth daily Active budesonide-formo teroL (Symbicort) 160-4.5 mcg/actuation inhaler INHALE 2 PUFFS BY MOUTH TWICE DAILY. RINSE MOUTH WITH WATER AFTER USE FOR AFTERTASTE AND INCIDENCE OF CANDIDIASIS. DO NOT SWALLOW 10.2 g 11 Active acetaminophen 500 mg capsuleIndicatio ns:Pain Take 2 capsules (1,000 mg total) by mouth every 8 (eight) hours as needed for pain 025 Active apixaban (ELIQUIS) 2.5 mg tablet Take 1 tablet (2.5 mg total) by mouth 2 (two) times a day for 28 days 56 tablet 022 2021 Discontinued revefenacin (Yupelri) 175 mcg/3 mL solution for nebulizationIndi cations:Moderate chronic obstructive pulmonary disease (HCC) Inhale 3 mL daily To replace Combivent and duoneb 90 mL 11 025 2024 oxyCODONE (ROXICODONE) 5 mg immediate release tabletIndication s:Pain Take 1 tablet (5 mg total) by mouth every 4 (four) hours as needed for pain 10 tablet 025 2024 Discontinued(P atient Reported) docusate sodium (COLACE) 100 mg capsuleIndicatio ns:constipation Take 1 capsule (100 mg total) by mouth 2 (two) times a day 30 capsule 025 2024 Discontinued(P atient Reported) cyclobenzaprine (FLEXERIL) 10 mg tabletIndication s:Muscle Spasm Take 1 tablet (10 mg total) by mouth 3 (three) times a day as needed for muscle spasms 15 tablet 025 2024 Discontinued(P atient Reported) Active Problems Problem Noted Date Diagnosed Date History of incisional hernia repair 06/21/2025 Cigarette nicotine dependence in remission 05/06 Assessment & Plan (05/06/2025 11:03 AM CDT): She quit in 2010 At the latest she will be due for her annual screening in June of 2025 Hoarseness, persistent 05/06/2025 Assessment & Plan (05/06/2025 11:05 AM CDT): I have sent a referral to ENT today to evaluate for laryngoscopy Pain in joint of left shoulder 03/21/2025 Metatarsalgia of left foot 09/24/2024 Pain of left heel 05/29/2024 Plantar fasciitis of left foot 05/29/2024 Skin tag 04/17/2024 Skin lesion 12/07/2023 Pneumonia due to Streptococcus 10/02/2023 Coronary arteriosclerosis 09/23/2023 Overview (09/23/2023): s/p stent 09/28 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 pn eumoniae) as the cause of diseases classified elsewhere 09/07/2022 Multiple nodules of lung 09/07/2022 Assessment & [...] (05/18/2022): Added automatically from request for surgery [id number] Abdominal pain 05/17/2022 Malignant neoplasm of ovary 05/16/2022 Overview (02/14/2023): STEVE/BSO May 2022, then chemotherapy Pseudomonas aeruginosa infection 05/10/2022 Infection due to Pseudomonas species 05/10/2022 Chronic cough 03/19/2022 Assessment & Plan (05/06/2025 11:02 AM CDT): She has a history of Streptococcus and Pseudomonas infection (06/2023) I previously spent for additional sputum cultures but she has been able to complete this She denies GERD I have encouraged her to start NAC 600 mg twice daily in order to thin secretions She does have a component of chronic bronchitis and we are trialing azithromycin 3 times weekly I will review her labs and discuss a further plan of care with her. Assessment & Plan (05/10/2024 12:04 PM CDT): [...] CPAP since about 2016 Assessment & Plan (05/06/2025 11:00 AM CDT): Continue PAP use with all sleep including naps She is aware of the risks of uncorrected sleep apnea I have reinforced weekly cleaning and frequent supply replacement She is aware that recurrent infections could come from contaminated disposable parts She should follow closely with sleep medicine Assessment & Plan (03/10/2025 8:24 PM CDT): Continue PAP use with all sleep She is aware of the risks of uncorrected sleep apnea I have reinforced weekly cleaning and frequent supply replacement She should follow closely with sleep medicine Assessment & Plan (10/18/2024 1:36 PM FIRE MANAGER): Continue PAP use with all sleep She is aware of the risks of uncorrected sleep apnea I have reinforced weekly cleaning Assessment & Plan (05/10/2024 12:00 PM CDT): Continue PAP use with all sleep She is aware of the risks of uncorrected sleep apnea Osteoarthritis 02/05/2019 Type 2 diabetes mellitus 02/05/2019 Vitamin D deficiency 02/05/2019 NAFLD (nonalcoholic fatty liver disease) 019 Overview (04/01/2025): 08/14/18 CT w/o contrast: NAFLD 05/07/19 Fibroscan CAP 321, LSM 9.4 kPa 01/14/20 Fibroscan CAP 323, LSM 10.5 kPa 02/07/23 Fibroscan CAP 301, LSM 5.7 kPa 02/13/24 Fibroscan CAP 281, LSM 4.6 kPa 02/11/25 Fibroscan CAP 285, LSM 5.3 kPa Lipoma 01/08/2019 Retroperitoneal mass 05/29/2018 Renal mass 03/06/2018 Recurrent respiratory infection 01/11/2018 Assessment & Plan (05/06/2025 11:04 AM CDT): We will check immunoglobulin levels today Goiter 11/22/2017 Assessment & Plan (11/22/2017 4:45 PM FIRE MANAGER): Ultrasound performed ( see report ) No solid nodules that need attention are visualized Continue to watch, no indication for any intervention at this point. Subclinical hyperthyroidism 11/22/2017 Assessment & Plan (02/21/2018 3:49 PM CDT): Check TFT's Start Tapazole if indicated Otherwise, f/u in 6 m Assessment & Plan (11/22/2017 4:44 PM FIRE MANAGER): Will check TFTs Stop PTU ( risk of liver damage ) If TFT's are normal, will recheck and reassess in 3 months Otherwise, will consider use of Tapazole Asthma 05/26/2017 Moderate chronic obstructive pulmonary disease 0 05/26/2017 Assessment & Plan (05/06/2025 11:00 AM CDT): Continue Symbicort 160/4.5 twice daily Anticipate that she would have better clinical benefit from once daily long- acting nebulized LAMA therapy I have discussed switching her to Yupelri and I have sent this to her pharmacy to check a hooker We may end up having to send this to a mail-order specialty pharmacy. Otuvayre was cost prohibitive She will restart her Azithromycin 500 mg three times weekly after she is finished with her Augmentin. I would also consider biologics cautiously I have ordered lab work today to check for peripheral eosinophilia and also immunoglobulin levels We have discussed signs and symptoms that would require additional evaluation or change to her plan of care Assessment & Plan (03/10/2025 8:22 PM CDT): [...] care Assessment & Plan (10/18/2024 1:35 PM FIRE MANAGER): Continue Symbicort 160/4.5 twice daily While she [...] 08/24/2016 Dyspnea on exertion 10/29/2015 Dizziness 09/17/2015 Resolved Problems Problem Noted Date Diagnosed Date Resolved Date Incarcerated incisional hernia 02/21/2025 06/21/2025 Incisional hernia, without o bstruction or gangrene 02/08/2025 06/21/2025 Encounters Date Type Department Care Team Description 06/21/2025 11:30 AM CDT [facility] ([facility]) - [facility] Minimally Invasive Surgery [address], [place] [address] Sujatha Sibley NP History of incisional hernia repair (Primary Dx); Personal history of fall 05/31/2025 Telephone [facility]) [facility] Minimally Invasive Surgery [address], [place] [address] Belinda Spears, KARLA Post-op Problem 05/27/2025 Telephone [facility]) [facility] Minimally Invasive Surgery [address], [place] [phone] Asad Aldridge MD Post-op Problem 05/21/2025 2:25 PM CDT Anesthesia Event [facility] Operating Room [address] [place] [address] Brenda Archer DO Botkin, Amanda Marie, NP 05/21/2025 1:45 PM CDT - 05/21/2025 4:55 PM CDT Surgery [facility] Operating Room [address] [place] [address] Asad Aldridge MD Robotic, retro-rectus repair of incisional hernia 05/21/2025 10:44 AM CDT - 05/22/2025 12:06 PM CDT Hospital Encounter [address] [address] Asad Aldridge MD Incarcerated incisional hernia [K43.0] (Primary Dx) Discharge Disposition: Discharge to home or self care 05/20/2025 Telephone [facility] ([facility]) - [facility] Minimally Invasive Surgery [address], [place] [address] Asad Aldridge MD Medical Question/Miscellaneo us 05/20/2025 [facility] ([facility]) - [facility] Minimally Invasive Surgery [address], [place] [phone] Asad Aldridge MD 05/16/2025 Telephone [facility]) [facility] Minimally Invasive Surgery [address], [place] [phone] Belinda Spears, make ready mechanic Confirmation 05/10/2025 Telephone [facility] Pulmonary at [address] [place] [address] Agnes Murcia LPN 05/09/2025 Telephone [facility]) - [facility] Minimally Invasive Surgery [address], [place] [phone] Asad Aldridge MD Medical Question/Miscellaneo us 05/08/2025 Results Follow-Up [facility] Pulmonary at [address] [place] [address] Elizabeth Barr NP CBC with auto differential, IgM, IgA, Additional followed-up results: 2 05/07/2025 Telephone [facility] Pulmonary at [address] [place] [address] Tomasa Pino LPN Surgical Clearance 05/06/2025 10:30 AM CDT Lab [address] Recurrent respiratory infection 05/06/2025 10:00 AM CDT Office Visit [facility] Pulmonary at [address] [place] [phone] Elizabeth Barr NP Moderate chronic obstructive pulmonary disease (HCC) (Primary Dx); Obstructive sleep apnea; Recurrent respiratory infection; Hoarseness, persistent; Chronic cough; Cigarette nicotine dependence in remission 04/22/2025 Telephone [facility] Obstetrics and Gynecology [address] [place] [address] [place] [phone] Marita Lamar RN 04/16/2025 7:44 AM CDT - 04/16/2025 11:59 PM CDT Hospital Encounter [facility] [address] [place] [address] Malignant neoplasm of right ovary (HCC) Discharge Disposition: Discharge to home or self care 04/03/2025 Telephone [facility] Pulmonary at [address] [place] [phone] Tomasa Pino LPN sick call 04/01/2025 8:30 AM CDT Office Visit [facility] Obstetrics and Gynecology [address] [facility] 13th [place] [address] [place] [address] Lisseth Peters MD Malignant neoplasm of right ovary (HCC) (Primary Dx); Ventral hernia without obstruction or gangrene 03/26/2025 9:30 AM CDT Office Visit [facility] Sleep Medicine at [address] [place] [phone] Luli Devlin MD Obstructive sleep apnea (Primary Dx); Hypersomnia; Obesity, unspecified class, unspecified obesity type, unspecified whether serious comorbidity present from Last 3 Months Immunizations Immunization Administration [...] History Surgery Date Site/Laterality Comments FOOT SURGERY Right ganglion/unknown date KNEE SURGERY Right unknown date TUBAL LIGATION unknown date PORT PLACEMENT CHEST >5 YEARS 07/09/2022 N/A HYSTERECTOMY 11/14/2023 - 11/13/2024 PORT REMOVAL 05/03/2023 N/A CARDIAC STENT PLACEMENT x1//unknown date per pt VASCULAR SURGERY multiple vascular stents in upper extremeties per pt/unknown dates Medical History Medical History Date Comments Asthma COPD (chronic obstructive pulmonary disease) Hypertension Type 2 diabetes mellitus Hyperthyroidism Kidney disease Heart palpitations Heart failure Heart attack (HCC) Headache Liver disease Sleep apnea 1999-uses cpap Hyperlipidemia H/O blood clots Diabetes (HCC) CHF (congestive heart failure) (HCC) Irritable bowel syndrome Cancer (HCC) Ovarian cancer (HCC) Obesity Cigarette nicotine dependence in remission 05/06 Incisional hernia, without obstruction or gangre ne 02/08/2025 Family History Medical History Relation Name Comments [...] Cigarettes 1.3 44 1 967 - 2010 Passive Smoke Exposure: Past Smokeless Tobacco: Never Tobacco Cessation:Counseling Given: Yes Alcohol Use Standard Drinks/Week Comments No 0 (1 standard drink = 0.6 oz pur e alcohol) AUDIT-C Answer Date Recorded Q1: How often do you have a drink containing alcohol? Never 05/21/2025 Q2: How many drinks containi ng alcohol do you have on a typical day when you are drinking? Patient does not drink Q3: How often do you have si x or more drinks on one occasion? Never 05/21/2025 PHQ-2 Answer Date Recorded PHQ-2 Score 0 07/05/2019 Personal Safety Answer Date Recorded Have you ever been in or are you currently in a harmful physical or emotional relationship or is someone making you feel afraid or unsafe? Denies 05/21/2025 Comments No Sex and Gender Information Value Date Recorded Sex Assigned at Not on file Legal Sex Female 12:59 PM FIRE MANAGER Gender Identity Not on file Sexual Orientation Not on file Obstetrics History Para Term AB IAB SAB Ectopic Multiple Livin g Live Births 0 0 0 0 0 0 0 0 0 0 0 Last Filed Vital Signs Vital Sign Reading Time Taken Comments Blood Pressure 101/63 06/21/2025 11:06 AM CDT Pulse 90 06/21/2025 11:06 AM CDT Temperature 36.7 C (98 F) 06/21/2025 11:06 AM CDT Respiratory Rate 18 05/22/2025 8:01 AM CDT Oxygen Saturation 93% 05/22/2025 10:16 AM CDT Inhaled Oxygen Concentration - - Weight 83.2 kg (183 lb 6.4 oz) 06/21/2025 11:06 AM CDT Height 157.5 cm (5' 2) 06/21/2025 11:06 AM CDT Body Mass Index 33.54 06/21/2025 11:06 AM CDT Plan of Treatment Health Maintenance [...] 05/17/2022, 04/14/2020 Lipid Panel 05/17/2023 05/17/2022, 02/15/2018 Covid-19 Vaccine (8 - 2023-2 5 season) 2024 09/06/2022, 09/06/2022, 03/01/2022, Additional history exists Osteoporosis Screening-Bone Density Scan 06/07/2025 06/07/2023, 09/21/2021, 08/25/2021 Influenza Vaccine (#1) 2025 , 09/07/2021, 08/27/2020, Additional history exists eGFR 05/21/2026 05/21/2025, 09/14, 06/07/2022, Additional history exists Fall Risk Assessment 05/22/2026 05/22/2025 DTaP/Tdap/Td Vaccine (2 - Td or Tdap) 07/19/2029 07/19/2019 Medical Devices Implanted Type Area Director Of Operations Support Device Identifier Shelf Expiration Date Model / Serial / Lot [employer]/C R Bard Mesh Surgical Hernia Synthetic Patch [id number] Polypropylene [id number] - [id number] Implanted:Qty: 1 on 05/21/2025 by Asad Aldridge MD at [facility] Mesh N/A: Abdomen [employer] [id number] 08/11/2029 [id number] / / Stent Stent Heart Stent Stent Bilateral: Leg Description:For DVT Explanted Type Area Director Of Operations Support Device Identifier Shelf Expiration Date Model / Serial / Lot [employer] Xcela Power Port 8fr [id number] - [id number] Implanted:Qty: 1 on 07/09/2022 at [facility] [employer] 01/05/2027 [id number] / / [id number] Procedures Procedure Name Priority Date/Time Associated Diagnosis Comments POCT GLUCOSE DEVICE Routine 05/22/2025 8 :25 AM CDT EGFR Routine 05/21/2025 9:43 PM CDT MAGNESIUM Routine 05/21/2025 9:43 PM CDT BASIC METABOLIC PANEL Routine 05/21/2025 9:43 PM CDT CBC WITHOUT DIFFERENTIAL Routine 05/21/2025 9:43 PM CDT POCT GLUCOSE DEVICE Routine 05/21/2025 9 :32 PM CDT POCT GLUCOSE DEVICE Routine 05/21/2025 5 :35 PM CDT FL AN PROCEDURE PLACEHOLDER Routine 05/21/2025 3:11 PM CDT FL AN PROCEDURE PLACEHOLDER Routine 05/21/2025 3:10 PM CDT FL AN ELECTIVE ENDOTRACHEAL AIRWAY Routine 05/21/2025 3:10 PM CDT POCT GLUCOSE DEVICE Routine 05/21/2025 3 :02 PM CDT XI REPAIR INCISIONAL HERNIA - LAPAROSCOPIC ROBOTIC ASSISTED RETRO-RECTUS APPROACH 05/21/2025 2:29 PM CDT Incarcerated incisional hernia Special Needs Mesh POCT GLUCOSE DEVICE Routine 05/21/2025 1 2:06 PM CDT POCT GLUCOSE DEVICE Routine 05/21/2025 1 2:05 PM CDT DIFFERENTIAL AUTO Routine 05/06/2025 10: 24 AM CDT Recurrent respiratory infection IMMUNOGLOBULIN IGG SUBCLASSES Routine 05/06/2025 10:24 AM CDT Recurrent respiratory infection IGA Routine 05/06/2025 10:24 AM CDT Recurrent respiratory infection IGM Routine 05/06/2025 10:24 AM CDT Recurrent respiratory infection CBC WITH AUTO DIFFERENTIAL Routine 05/06/2025 10:24 AM CDT Recurrent respiratory infection CT ABDOMEN PELVIS W CONTRAST Schedule Routine, Read Routine (OP Routine) 04/16/2025 9:09 AM CDT Malignant neoplasm of right ovary (HCC) POCT CREATININE - DEVICE Routine 04/16/2025 8:33 AM CDT HEMOGLOBIN A1C Timed 05/17/2022 12:15 AM CDT LIPID PANEL Timed 05/17/2022 12:15 AM CDT from Last 3 Months or Most Recently Relevant to Health Maintenance Results * POCT glucose (05/22/2025 8:25 AM CDT) Glucose, POC 137 70 - 199 mg/dL Blood 05/22/2025 8:25 AM CDT 05/22/2025 8:25 AM CDT Asad Aldridge MD LAB POCT ORDERABLES - DE VICE Final Result Performing Organization Address [facility] Co de Phone Number [facility] [place] [address] * eGFR (05/21/2025 9:43 PM CDT) eGFR 60 >=60 mL/min/1. 73 m2 Comment: Interpretive Data Reference Interval Normal >/= 90 mL/min/1.73m2 Mildly decreased* 60 - 89 mL/min/1.73m2 Mildly to moderately decreased 45 - 59 mL/min/1.73m2 Moderately to severely decreased 30 - 44 mL/min/1.73m2 Severely decreased 15 - 29 mL/min/1.73m2 Kidney Failure < 15 mL/min/1.73m2 *Relative to young adult level Estimated glomerular filtration rate is determined by the 2020 CKD-EPI equation recommended by the National Kidney Foundation (A Unifying Approach to GFR Estimation: Recommendations of the NKF-ASK Task Force on Reassessing the Inclusion of Race in Diagnosing Kidney Disease, JASN 2020). The CKD-EPI equation should not be used for patients with unstable renal function and has not been validated in children and those over 70. Current interpretive data was last reviewed 2021. Blood 05/21/2025 9:43 PM CDT 05/21/2025 10:40 PM CDT Dewayne Santillan MD LAB BLOOD ORDERABLES Fin al Result Performing Organization Address City/[facility]/ZIP Co de Phone Number JONATHAN [facility] [place] [address] * (ABNORMAL) CBC without differential (05/21/2025 9:43 PM CDT) WBC 11.91(H) 3.80 - 9.90 K/cumm Hgb 13.3 11.9 - 15.5 g/dL [facility] Hct 40.7 35.6 - 45.5 % [facility] Plt 242 150 - 400 K/cumm [facility] MPV 10.0 9.1 - 12.3 fL [facility] RBC 4.69 3.90 - 5.20 M/cumm [facility] MCV 86.8 81.3 - 96.4 fL [facility] MCH 28.4 27.1 - 33.3 pg [facility] MCHC 32.7 32.3 - 35.7 g/dL [facility] RDW CV 16.5(H) 11.1 - 14.9 % [facility] RDW SD 52.3(H) 35.7 - 48.1 fL [facility] NRBC abs 0.00 0.00 - 0.01 K/cumm [facility] Blood 05/21/2025 9:43 PM CDT 05/21/2025 10:43 PM CDT Dewayne Santillan MD LAB BLOOD ORDERABLES Fin al Result Performing Organization Address [facility] de Phone Number [facility] [place] [address] * (ABNORMAL) Magnesium (05/21/2025 9:43 PM CDT) [facility] Magnesium 2.8(H) 1.4 - 2.5 mg/dL Blood 05/21/2025 9:43 PM CDT 05/21/2025 10:40 PM CDT Dewayne Santillan MD LAB BLOOD ORDERABLES Fin al Result Performing Organization Address [facility] de Phone Number [facility] [place] [address] * Basic metabolic panel (05/21/2025 9:43 PM CDT) [facility] Sodium 141 135 - 145 mmol/L Potassium, pl 4.0 3.3 - 4.9 mmol/L [facility] Chloride 106 97 - 110 mmol/L [facility] CO2 24 22 - 32 mmol/L [facility] Anion gap 11 2 - 15 mmol/L [facility] BUN 15 6 - 25 mg/dL [facility] Creatinine 1.02 0.60 - 1.10 mg/dL [facility] Glucose 199 70 - 199 mg/dL [facility] Comment: Interpretive Data Fasting glucose >/= 126 mg/dl is diagnostic for diabetes. Fasting is defined as no caloric intake for at least 8 hours. Fasting glucose between 100 mg/dl to 125 mg/dl is diagnostic of prediabetes. In a patient with classic symptoms of hyperglycemia or hyperglycemic crisis, a random glucose >/= 200 mg/dl is diagnostic for diabetes. In the absence of unequivocal hyperglycemia, results should be confirmed by repeat testing. The classification and Diagnosis of Diabetes Diabetes Care 2021; 46: S19-S40. Current interpretive data was last revised 2022. Calcium 8.9 8.5 - 10.3 mg/dL [facility] Blood 05/21/2025 9:43 PM CDT 05/21/2025 10:40 PM CDT us Dewayne Santillan MD LAB BLOOD ORDERABLES Fin al Result [facility] Department [place] [employer] [place] [address] * POCT glucose (05/21/2025 9:32 PM CDT) Glucose, POC 177 70 - 199 mg/dL Blood 05/21/2025 9:32 PM CDT 05/21/2025 9:32 PM CDT Asad Aldridge MD LAB POCT ORDERABLES - DE VICE Final Result [facility] [employer] [place] [employer] [place] [address] * POCT glucose (05/21/2025 5:35 PM CDT) Glucose, POC 149 70 - 199 mg/dL Blood 05/21/2025 5:35 PM CDT 05/21/2025 5:35 PM CDT Asad Aldridge MD LAB POCT ORDERABLES - DE VICE Final Result [facility] [place] [address] * FL AN PROCEDURE PLACEHOLDER (05/21/2025 3:11 PM CDT) Narrative Lashae Arellano CRNA - 05/21/2025 3:11 PM CDT Lashae Arellano CRNA 05/21/2025 3:11 PM Peripheral IV Catheter Patient location: OR Staff: Placed by: Anesthesiologist: Bennett Carcamo MD Preprocedure prep: Prep solution: chlorhexadine PPE: gloves and provider hat/mask PIV line: Laterality: right Site: forearm Catheter size: 20 g Technique: anatomical landmarks Procedure details: good blood return and occlusive dressing applied Number of attempts: 1 Assessment: Events: patient tolerated procedure well with no complications Bennett Carcamo MD ANESTHESIA ORDERABLES Final Res ult * FL AN ELECTIVE ENDOTRACHEAL AIRWAY, FL AN PROCEDURE PLACEHOLDER (05/21/2025 3:10 PM CDT) Lashae Gonzalez CRNA - 05/21/2025 3:10 PM CDT Lashae Arellano CRNA 05/21/2025 3:11 PM Airway Patient location: OR Urgency: elective Indications for airway management: anesthesia Difficult airway: no Staff: Supervising provider: Bennett Carcamo MD Placed by: HVAC TECHNICIAN: Lashae Arellano CRNA Emergent airway documentation: Risks and benefits discussed: yes Consent obtained: yes Consent given by: patient Airway prep: Preoxygenated: yes Patient position: sniffing Mask difficulty assessment: 0 - not attempted Spontaneous ventilation during airway: absent Sedation level during airway: GA Final airway details: Final airway type: endotracheal airway Tube type: ETT ETT size: 7.0 mm Cuffed: yes Technique used for successful ETT placement: video laryngoscopy Devices/Methods used in placement: intubating stylet Insertion site: oral Video blade type: Samson Blade size: 3 Cormack-Lehane (video): grade I - full view of glottis Initial cuff pressure: 29 cm H2O Cuff volume: 7 mL Cuff inflated with: air ETT to teeth: 20 cm Placement verified by: auscultation and CO2 detection Airway secured with: silk tape Number of attempts: 1 Bennett Carcamo MD ANESTHESIA ORDERABLES Final Res ult * POCT glucose (05/21/2025 3:02 PM CDT) Glucose, POC 87 70 - 199 mg/dL Blood 05/21/2025 3:02 PM CDT 05/21/2025 3:02 PM CDT Asad Aldridge MD LAB POCT ORDERABLES - DE VICE Final Result Performing Organization Address [facility] Phone Number [facility] [employer] [place] [employer] [place] [address] * POCT glucose (05/21/2025 12:06 PM CDT) Glucose, POC 93 70 - 199 mg/dL Blood 05/21/2025 12:0 6 PM CDT 05/21/2025 12:06 PM CDT Asad Aldridge MD LAB POCT ORDERABLES - DE VICE Final Result Performing Organization Address [facility] Co ri Phone Number [facility] [place] [employer] [place] [address] * (ABNORMAL) POCT glucose (05/21/2025 12:05 PM CDT) Glucose, POC 66(L) 70 - 199 mg/dL Blood 05/21/2025 12:0 5 PM CDT 05/21/2025 12:05 PM CDT Asad Aldridge MD LAB POCT ORDERABLES - DE VICE Final Result [facility] [place] [address] * (ABNORMAL) Immunoglobulin IgG subclasses (05/06/2025 10:24 AM CDT) Pathologist [facility] IgG 607(L) 767 - 1590 mg/dL [place] [facility] IgG, fraction 1 421 341 - 894 mg/dL [facility] ([facility]) IgG, fraction 2 76(L) 171 - 632 mg/dL [facility] ([facility]) IgG, fraction 3 29.0 18.4 - 106.0 mg/dL [facility] ([facility]) IgG, fraction 4 1.3(L) 2.4 - 121.0 mg/dL [facility] ([facility]) Comment: Test Performed by: [place] [address] Employee Counselor: Mohan Mcgraw Ph.D.; CLIA# [id number] Blood 05/06/2025 10:2 4 AM CDT 05/06/2025 1:26 PM CDT us Elizabeth Barr [employer] DEVELOPER LAB BLOOD ORDERABLES Final Result JONATHAN [facility] (ROB) 1 [facility] Department [place] [address] [place] ref [facility] * Differential, auto (05/06/2025 10:24 AM CDT) Neutrophil abs 5.90 1.50 - 6.50 K/cumm Imm gran abs 0.04 0.00 - 0.10 K/cumm [facility] ([facility]) Lymphocyte abs 2.58 0.80 - 3.30 K/cumm [facility] ([facility]) Monocyte abs 0.70 0.20 - 0.80 K/cumm [facility] ([facility]) Eosinophil abs 0.17 0.00 - 0.50 K/cumm [facility] ([facility]) Basophil abs 0.04 0.00 - 0.10 K/cumm [facility] ([facility]) Neutrophil pct 62.6 % [facility] ([facility]) Comment: Interpretive Data Percent cell count reference ranges are not reported, since discordance with absolute values may lead to misinterpretation of CBC data. Current Interpretive Data was last revised on 2018. Imm gran pct 0.4 % [facility] ([facility]) Comment: Interpretive Data Percent cell count reference ranges are not reported, since discordance with absolute values may lead to misinterpretation of CBC data. Current Interpretive Data was last revised on 2018. Lymphocyte pct 27.4 % [facility] ([facility]) Comment: Interpretive Data Percent cell count reference ranges are not reported, since discordance with absolute values may lead to misinterpretation of CBC data. Current Interpretive Data was last revised on 2018. Monocyte pct 7.4 % [facility] ([facility]) Comment: Interpretive Data Percent cell count reference ranges are not reported, since discordance with absolute values may lead to misinterpretation of CBC data. Current Interpretive Data was last revised on 2018. Eosinophil pct 1.8 % [facility] ([facility]) Comment: Interpretive Data Percent cell count reference ranges are not reported, since discordance with absolute values may lead to misinterpretation of CBC data. Current Interpretive Data was last revised on 2018. Basophil pct 0.4 % [facility] ([facility]) Comment: Interpretive Data Percent cell count reference ranges are not reported, since discordance with absolute values may lead to misinterpretation of CBC data. Current Interpretive Data was last revised on 2018. Blood 05/06/2025 10:2 4 AM CDT 05/06/2025 1:26 PM CDT us Elizabeth Barr RU[employer] DEVELOPER LAB BLOOD ORDERABLES Final Result JONATHNA PA (ROB) 1 [facility] Department [place] [address] * (ABNORMAL) CBC with auto differential (05/06/2025 10:24 AM CDT) WBC 9.43 3.80 - 9.90 K/cumm Hgb 14.2 11.9 - 15.5 g/dL [facility] ([facility]) Hct 43.9 35.6 - 45.5 % [facility] ([facility]) Plt 262 150 - 400 K/cumm [facility] ([facility]) MPV 9.7 9.1 - 12.3 fL [facility] ([facility]) RBC 4.98 3.90 - 5.20 M/cumm [facility] ([facility]) MCV 88.2 81.3 - 96.4 fL [facility] ([facility]) MCH 28.5 27.1 - 33.3 pg [facility] ([facility]) MCHC 32.3 32.3 - 35.7 g/dL [facility] ([facility]) RDW CV 16.4(H) 11.1 - 14.9 % [facility] ([facility]) RDW SD 52.2(H) 35.7 - 48.1 fL [facility] ([facility]) NRBC abs 0.00 0.00 - 0.01 K/cumm [facility] ([facility]) Blood 05/06/2025 10:2 4 AM CDT 05/06/2025 1:26 PM CDT us Elizabeth Barr RU[employer] DEVELOPER LAB BLOOD ORDERABLES Final Result Performing Organization Address City/[facility]/ZIP Co de Phone Number JONATHAN PA (ROB) 1 [facility] [place] [address] * IgA (05/06/2025 10:24 AM CDT) [facility] Signature Immunoglobulin A 194 70 - 400 mg/dL Comment:Testing performed by : [facility], [address] [place] [address]., [id number] Blood 05/06/2025 10:2 4 AM CDT 05/06/2025 7:03 PM CDT us Elizabeth Barr RU[employer] DEVELOPER LAB BLOOD ORDERABLES Final Result JONATHAN PA (ROB) 1 [facility] [place] [employer] [place] [address] * IgM (05/06/2025 10:24 AM CDT) Pathologist [facility] Immunoglobulin M 62 40 - 150 mg/dL Comment:Testing performed by : [facility], [address] [place] [address], [place]., [address] Blood 05/06/2025 10:2 4 AM CDT 05/06/2025 7:03 PM CDT us Elizabeth Barr RU[employer] RA[employer] DEVELOPER LAB BLOOD ORDERABLES Final Result JONATHAN PA (CARY) 1 [facility] Department of Laboratories [place], [place] [id number] * CT Abdomen Pelvis W Contrast (04/16/2025 9:09 AM CDT) Anatomical Region Laterality Modality Body N/A Computed Tomogra phy 04/16/2025 9:45 AM CDT Impressions 04/16/2025 9:52 AM CDT 1. No evidence of metastatic disease in the abdomen or pelvis. 2. Unchanged indeterminant left retroperitoneal lipomatous lesion which was previously biopsied benign. Dictated by: Herber Patel MD The radiology attending physician has personally reviewed this study, and had reviewed and/or edited this written report and agrees with it. Electronically signed by: Leobardo Sheikh M.D. Narrative 04/16/2025 9:52 AM CDT EXAMINATION: CT of the abdomen and pelvis with intravenous contrast. HISTORY: Ovarian cancer status post chemotherapy. TECHNIQUE: Transaxial computed tomographic images of the abdomen and pelvis were obtained after the uneventful administration of 72 mL of Optiray 350 intravenous contrast according to the standard protocol. COMPARISON: Multiple prior CTs most recently dated 07/02/2024. FINDINGS: 4 mm fitz-fissural right middle lobe pulmonary nodule is unchanged dating back to 01/08/2020 and is considered benign. Coronary vascular calcifications. The remaining imaged lower chest is unremarkable. No suspicious hepatic mass. Patent portal venous vasculature. Cholecystectomy. No intrahepatic or extra hepatic biliary ductal dilation. Normal spleen, pancreas, and adrenal glands. Kidneys enhance symmetrically without hydronephrosis. Normal caliber small and large bowel without evidence of obstruction or bowel wall thickening. Normal urinary bladder. Postsurgical changes of hysterectomy and bilateral salpingo-oophorectomy. No ascites or organized fluid collection. No pneumoperitoneum. Unchanged ill-defined left retroperitoneal lipomatous lesion. Small fat-containing anterior abdominal wall incisional hernias. No intra-abdominal or pelvic lymphadenopathy. Normal caliber intra-abdominal aorta with moderate calcified atherosclerosis. No suspicious osseous lesions. Procedure Note Leobardo Sheikh MD - 04/16/2025 EXAMINATION: CT of the abdomen and pelvis with intravenous contrast. HISTORY: Ovarian cancer status post chemotherapy. TECHNIQUE: Transaxial computed tomographic images of the abdomen and pelvis were obtained after the uneventful administration of 72 mL of Optiray 350 intravenous contrast according to the standard protocol. COMPARISON: Multiple prior CTs most recently dated 07/02/2024. FINDINGS: 4 mm fitz-fissural right middle lobe pulmonary nodule is unchanged dating back to 01/08/2020 and is considered benign. Coronary vascular calcifications. The remaining imaged lower chest is unremarkable. No suspicious hepatic mass. Patent portal venous vasculature. Cholecystectomy. No intrahepatic or extra hepatic biliary ductal dilation. Normal spleen, pancreas, and adrenal glands. Kidneys enhance symmetrically without hydronephrosis. Normal caliber small and large bowel without evidence of obstruction or bowel wall thickening. Normal urinary bladder. Postsurgical changes of hysterectomy and bilateral salpingo-oophorectomy. No ascites or organized fluid collection. No pneumoperitoneum. Unchanged ill-defined left retroperitoneal lipomatous lesion. Small fat-containing anterior abdominal wall incisional hernias. No intra-abdominal or pelvic lymphadenopathy. Normal caliber intra-abdominal aorta with moderate calcified atherosclerosis. No suspicious osseous lesions. IMPRESSION: 1. No evidence of metastatic disease in the abdomen or pelvis. 2. Unchanged indeterminant left retroperitoneal lipomatous lesion which was previously biopsied benign. Dictated by: Herber Patel MD The radiology attending physician has personally reviewed this study, and had reviewed and/or edited this written report and agrees with it. Electronically signed by: Leobardo Sheikh M.D. us Premal Willie Peters MD IMG CT PROCEDURES Final Result * POCT creatinine (04/16/2025 8:33 AM CDT) Creatinine POC 1.0 0.6 - 1.1 mg/dL Blood 04/16/2025 8:33 AM CDT 04/16/2025 8:33 AM CDT [facility] Willie Peters MD LAB POCT ORDERABLES - DE VICE Final Result Performing Organization Address [facility] Co de Phone Number [facility] [place] [address] * (ABNORMAL) Hemoglobin A1c (05/17/2022 12:15 AM CDT) Hgb A1C 6.0(H) 4.0 - 5.6 % [facility] Estimated Average Glucose 126 mg/dL [facility] Comment: The ADA recommends reporting an estimated Average Glucose (eAG) with all Hemoglobin A1c results using the equation derived from a study of 507 normal and diabetic adults. Minority populations were underrepresented and children were not included. (Diabetes Care 2020; 43(S1): S66-S76). The eAG is not equivalent to a fasting glucose. Blood 05/17/2022 12:1 5 AM CDT 05/17/2022 1:26 AM CDT [facility] Willie Peters MD LAB BLOOD ORDERABLES Fin al Result Performing Organization Address [facility] Co de Phone Number [facility] [place] [address] * Lipid panel (05/17/2022 12:15 AM CDT) Cholesterol 88 30 - 199 mg/dL [facility] Comment: Interpretive Data Ages < or [...] revised on 2018. Triglycerides 100 <=149 mg/dL [facility] Comment: Interpretive Data Ages < or [...] revised on 2018. HDL 42 >=40 mg/dL [facility] Comment: Interpretive Data Ages < or [...] on 2018. LDL, calculated 26 <=129 mg/dL [facility] Comment: Interpretive Data Ages < or [...] revised on 2018. Non-HDL Cholesterol 46 mg/dL [facility] Comment: Interpretive Data Ages < or [...] Fin al Result [facility] [place] [address] from Last 3 Months or Most Recently Relevant to Health Maintenance Insurance * Guarantor: Crissy Parham Account Type Relation to Patient Date of Phone Billing Address Personal/Family Self 1955 [address] [place] [address] [facility] Address: [address] [address] [place] [address] IDPA * Guarantor: Crissy Parham Account Type Relation to Patient Date of Phone Billing Address Personal/Family Self 1955 [address] [place] [address] [employer] [facility] MEDIC[facility] Address: [address] [address] [place] [address] [employer] [facility] MEDIC[facility] Address: [facility] [address] [place] [address] Advance Directives For more information, please contact: [phone] * Full Code (Latest Code Status on File) Date Activated Date Inactivated Comments 05/21/2025 7:01 PM 05/22/2025 4:12 PM * Full Code Date Activated Date Inactivated Comments 05/03/2023 12:51 PM 05/04/2023 4:49 AM * Full Code Date Activated Date Inactivated Comments 09/03/2022 7:43 AM 09/04/2022 4:50 AM * Full Code Date Activated Date Inactivated Comments 07/09/2022 7:09 AM 07/10/2022 4:47 AM * Full Code Date Activated Date Inactivated Comments 05/16/2022 11:52 PM 05/18/2022 9:16 PM Care Teams Photograph Retoucher Relationship Specialty Start Date End Date Khalif Reynolds MD [address] [facility] [place] [address] [place] [address] PCP - General Internal Medicine 10/28/17 Chriss Hendrickson MD [address] [place] [address] [place] [address] Referring Physician Obstetrics and Gynecology 01/18/20 Zaid Adams MD [address] [facility] [address] [place] [address] Referring Physician Gastroenterology 02/14/23 Nadir Ross MD [address] [place] [address] Consulting Physician Cardiovascular Disease 02/14/23 Asad Aldridge MD [address] [facility] [address] [place] [address] Consulting Physician General Surgery 05/08/25
--- OUTSIDE RECORDS SUMMARY | 2025-06-25 11:20 | XMS_ITS | Encounter Summary ---
Demographics Address [address] [place] [address] Mobile Phone Home Phone Preferred Language Citizen Of [place] Marital Status Single Mandaeism Affiliation Unknown Race White Ethnic Group Not or Lati no Author Organization [facility] Healthcare Address [address] [place] [address] Care Team Providers Care Quality Process Lead Name Role Phone Khalif Reynolds MD Primary Care Provide r Chriss Hendrickson MD Unavailable [phone] Zaid Adams MD Unavailable [phone] Nadir Ross MD Unavailable [phone] Asad Aldridge MD Unavailable [phone] Encounter Details Date Type Department Care Team (Late st Contact Info) Description 05/08/2025 Results Follow-Up [facility] Pulmonary at [address] [place] [address] Elizabeth Barr, MENDEL [address] [place] [address] [address] [place] [address] CBC with auto differential, IgM, IgA, Additional followed-up results: 2 Social History Tobacco Use Types Packs/Day Years Used Date Smoking Tobacco: Former Cigarettes 1.3 44 1 967 - 2011 Smokeless Tobacco: Never Alcohol Use Standard Drinks/Week Comments No 0 (1 standard drink = 0.6 oz pur e alcohol) AUDIT-C Answer Date Recorded Q1: How often do you have a drink containing alc ohol? Monthly or less 05/03/2025 Q2: How many drinks containi ng alcohol do you have on a typical day when you are drinking? 1 or 2 05/03/2025 Q3: How often do you have si x or more drinks on one occasion? Never 05/03/2025 PHQ-2 Answer Date Recorded PHQ-2 Score 0 07/05/2019 Personal Safety Answer Date Recorded Have you ever been in or are you currently in a harmful physical or emotional relationship or is someone making you feel afraid or unsafe? 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 Gender Identity Not on file Sexual Orientation Not on file documented as of this encounter Plan of Treatment Not on file documented as of this encounter Visit Diagnoses Not on filedocumented in this encounter Care Teams Quality Process Lead Relationship Specialty Start Date End Date Khalif Reynolds MD [address] [facility] [address] [place] [address] PCP - General Internal Medicine 10/28/17 Chriss Hendrickson MD [address] [place] [address] [place] [address] Referring Physician Obstetrics and Gynecology 01/18/20 Zaid Adams MD [address] [place] [address] Referring Physician Gastroenterology 02/14/23 Nadir Ross MD [address] [place] [address] Consulting Physician Cardiovascular Disease 02/14/23 Asad Aldridge MD [address] [facility] [address] [place] [address] Consulting Physician General Surgery 05/08/25 documented as of this encounter
--- OUTSIDE RECORDS SUMMARY | 2025-06-25 11:20 | XMS_ITS ---
Author Organization [facility] Physician Office Building [address] [place] [address] Care Team Providers Care Ship Manager Name Role Phone Khalif Reynolds MD Primary Care Provide r Chriss Hendrickson MD Unavailable [phone] Zaid Adams MD Unavailable [phone] Nadir Ross MD Unavailable [phone] Asad Aldridge MD Unavailable [phone] Active Problems Problem Noted Date Diagnosed Date [...] (05/18/2022): Added automatically from request for surgery [id number] Abdominal pain 05/17/2022 Malignant neoplasm of ovary [...] medicine Assessment & Plan (10/18/2024 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 Subclinical hyperthyroidism 11/22/2017 Assessment & Plan (02/21/2018 3:49 PM CDT): Check TFT's Start Tapazole if indicated Otherwise, f/u in 6 m Assessment & Plan (11/22/2017 4:44 PM MIXED LIVESTOCK FARMER): Will check TFTs Stop PTU ( risk [...] care Assessment & Plan (10/18/2024 1:35 PM MIXED LIVESTOCK FARMER): Continue Symbicort 160/4.5 twice daily While she [...] Date:07/09/2022 Plan Provider:Lisseth Peters MD Linked Problems Malignant neoplasm of ovaryO varian mass Treatment Medications No medications scheduled. PACLItaxel / CARBOplatin (AUC 5) 21 Day Cycles - FORKLIFT PICKER* Plan Start Date:07/04/2022 Plan Provider:Lisseth Peters MD Linked Problems Malignant neoplasm of ovary Treatment Medications Current Day (Day 1 , [...] 0.2 minutes 0.2 minutes 0 minutes DLP 7,015 mGycm 7,015 mGycm 0 mGycm Resolved Problems Problem Noted Date Diagnosed Date Resolved Date Incarcerated incisional hernia 02/21/2025 06/21/2025 Incisional hernia, without o bstruction or gangrene 02/08/2025 06/21/2025
--- OUTSIDE RECORDS SUMMARY | 2025-06-25 11:20 | XMS_ITS | Clinical Summary ---
Author Organization [facility] Address [facility] [place] [address] Care Team Providers Care Automatic Glove Turner And Former Name Role Phone Unavailable Primary Care Provider [...] HFA) 108 (90 Base) MCG/ACT inhalerIndicatio ns:Asthma ([facility]),COPD (chronic obstructive pulmonary disease) ([facility]) Inhale 2 puffs into the lungs every 6 (six) hours as needed for Wheezing. 12/01/2018 Active Active Problems Problem Noted Date Diagnosed Date Asthma ([facility]) 05/26/2017 COPD (chronic obstructive pu lmonary disease) ([facility]) 05/26/2017 Social History Tobacco Use [...] 3:41 PM CDT Height 162.6 cm (5' 4) 06/02/2017 3:41 PM CDT Body Mass Index [...]
--- OUTSIDE RECORDS SUMMARY | 2025-06-25 11:20 | XMS_ITS | Patient Health Record ---
Author Organization [facility] Address [address] [place] [address] [place] [address] Care Team Providers Care Resource Program Teacher Name Role Phone Damian Rodriguez Unavailable [phone] Reason For Referral No Information Medications Medication SIG (Take, Route, Frequency, Duration) Notes Start Date End Date Status Torsemide 100 MG TAKE 1/2 TABLET BY MOUTH TWICE DAILY DIRECTED; Duration: 90 Active Cipro 500 MG 1 tablet Orally ever y 12 hrs; Duration: 10 01/18/2024 Active Potassium Chloride ER 20 MEQ TAKE 1 TABLET BY MOUTH TWICE DAILY WITH FOOD; Duration: 90 Active Jardiance 10 MG TAKE 1 TABLET BY MAY TH DAILY; Duration: 30 Active Vitamin D (Ergocalciferol) 1.25 MG (88772 UT) TAKE 1 CAPSULE BY MOUTH 1 TIME A WEEK; Duration: 91 Active Klor-Con 20 MEQ MIX AND DRINK 1 PACK ET BY MOUTH DAILY WITH FOOD; Duration: 90 Active Spironolactone 25 MG 1 tablet Orally onc e a day; Duration: 90 days 09/20/2024 09/15/2025 Active Protonix 40 MG 1 tablet Orally Once a day; Duration: 90 day(s) 03/10/2022 Active Medrol 4 MG as directed Orally 03/10/2022 Active Azithromycin 1 GM 1 martina as directed 03/10/2022 Active Calcitriol 0.25 MCG TAKE 1 CAPSULE BY MO UTH TWICE DAILY; Duration: 90 Active Allopurinol 300 MG TAKE 1 TABLET BY MAY TH DAILY; Duration: 90 Active Problems Problem Type SNOMED Code ICD Code Onset Dates Problem Status W/U Status Risk Notes Problem Hypothyroidism (81702074) Hypothyroidism, unspecified (E03.9) Active confirmed Problem Hyperglycemia due to type 2 diabetes mellitus (067715019710523) Type 2 diabetes mellitus with hyperglycemia (E11.65) Active confirmed Problem Primary hyperparathyroidism (60079287) Primary hyperparathyroidism (E21.0) Active confirmed Problem Secondary hyperparathyroidism (28696452) Secondary hyperparathyroidism, not elsewhere classified (E21.1) Active confirmed Problem Vitamin D deficiency (36289381) Vitamin D deficiency, unspecified (E55.9) Active confirmed Problem Hyperlipidemia (17057266) Hyperlipidemia, unspecified (E78.5) Active confirmed Problem Metabolic disorder (34458491) Metabolic disorder, unspecified (E88.9) Active confirmed Problem Hernia of abdominal cavity (disorder) (13828794) Unspecified abdominal hernia without obstruction or gangrene (K46.9) Active confirmed Problem Renal osteodystrophy (07366385) Renal osteodystrophy (N25.0) Active confirmed Problem Essential hypertension (49019465) Essential hypertension (I10) Active confirmed Problem Viral upper respiratory tract infection (371386894) Viral upper respiratory tract infection (J06.9) Active confirmed Problem Chronic kidney disease stage 3A (disorder) (556621582) Chronic kidney disease, stage 3a (N18.31) Active confirmed Encounters Encounter Location Date Provider Diagnosis [facility] [address] [address] 07/11/2024 Damian Rodriguez Chronic kidney disea se, stage 3 unspecified N18.30 ; Essential hypertension I10 ; Type 2 diabetes mellitus with hyperglycemia E11.65 ; Renal osteodystrophy N25.0 ; Secondary hyperparathyroidism, not elsewhere classified E21.1 ; Vitamin D deficiency, unspecified E55.9 and Viral upper respiratory tract infection J06.9 [facility] [address] [place] [address] [place] [address] 08/31/2024 Damian Rodriguez Chronic kidney disea se, stage 3 unspecified N18.30 ; Type 2 diabetes mellitus with hyperglycemia E11.65 ; Renal osteodystrophy N25.0 ; Secondary hyperparathyroidism, not elsewhere classified E21.1 ; Vitamin D deficiency, unspecified E55.9 ; Viral upper respiratory tract infection J06.9 and Essential hypertension I10 [facility] [address] [address] 09/19/2024 Damian Rodriguez Chronic kidney disea se, stage 3 unspecified N18.30 ; Type 2 diabetes mellitus with hyperglycemia E11.65 ; Renal osteodystrophy N25.0 ; Secondary hyperparathyroidism, not elsewhere classified E21.1 ; Vitamin D deficiency, unspecified E55.9 ; Viral upper respiratory tract infection J06.9 and Essential hypertension I10 [facility] [address] [place] [address] 10/05/2024 Damian Rodriguez Chronic kidney disea se, stage 3 unspecified N18.30 ; Type 2 diabetes mellitus with hyperglycemia E11.65 ; Renal osteodystrophy N25.0 ; Secondary hyperparathyroidism, not elsewhere classified E21.1 ; Vitamin D deficiency, unspecified E55.9 ; Viral upper respiratory tract infection J06.9 and Essential hypertension I10 [facility] [address] [place] [address] 11/30/2024 Damian Rodriguez Chronic kidney disea se, stage 3 unspecified N18.30 ; Type 2 diabetes mellitus with hyperglycemia E11.65 ; Hypokalemia E87.6 ; Edema, unspecified R60.9 ; Hyperlipidemia, unspecified E78.5 ; Renal osteodystrophy N25.0 and Secondary hyperparathyroidism, not elsewhere classified E21.1 [facility] [address] [place] [address] 01/18/2025 Damian Rodriguez Chronic kidney disea se, stage 3 unspecified N18.30 ; Type 2 diabetes mellitus with hyperglycemia E11.65 ; Renal osteodystrophy N25.0 ; Secondary hyperparathyroidism, not elsewhere classified E21.1 ; Vitamin D deficiency, unspecified E55.9 ; Viral upper respiratory tract infection J06.9 ; Essential hypertension I10 and Hyperlipidemia, unspecified E78.5 [facility] [address] [place] [address] 02/27/2025 Damian Rodriguez Chronic kidney disea se, [...] abdominal hernia without obstruction or gangrene K46.9 [facility] [address] [place] [address] 03/04/2025 Damian Rodriguez Chronic kidney disea se, [...] abdominal hernia without obstruction or gangrene K46.9 [facility] [address] [address] 03/22/2025 Damian Rodriguez Chronic kidney disea se, [...] abdominal hernia without obstruction or gangrene K46.9 [facility] [address] [address] 04/24/2025 Damian Rodriguez Chronic kidney disea se, stage 3a N18.31 [...] Hypothyroidism, unspecified E03.9 and Primary hyperparathyroidism E21.0 [facility] [address] [address] 09/20/[facility] [address] [address] [facility] [address] [address] [facility] [address] [address] [place] [address] 11/30/2024 Damian Rodriguez [facility] [address] [place] [address] [place] [address] 02/27/2025 Damian Rodriguez [facility] [address] [place] [address] [place] [address] 02/27/2025 Damian Rodriguez [facility] [address] [place] [address] [place] [address] 03/04/2025 Damian Rodriguez [facility] [address] [place] [address] [place] [address] 03/05/2025 Damain Rodriguez [facility] [address] [place] [address] [place] [address] 09/20/2024 Damian Rodriguez [facility] [address] [facility] [place] [address] [place] [address] 09/20/[address] [place] [address] [place] [address] 09/20/2024 Damian Mckeon [address] [place] [address] 09/20/2024 Damian Rodriguez Assessments Encounter Date Diagnosis (ICD Code) Assessment Notes Treatment Notes Treatment Clinical Notes Section Notes 11/30/2024 Type 2 diabetes mellitus with hyperglycemia (ICD-10 - E11.65) 11/30/2024 Chronic kidney disea se, stage 3 unspecified (ICD-10 - N18.30) 03/04/2025 Chronic kidney disea se, stage 3 unspecified (ICD-10 - N18.30) 03/22/2025 Chronic kidney disea se, stage 3 unspecified (ICD-10 - N18.30) 04/24/2025 Chronic kidney disea se, stage 3a (ICD-10 - N18.31) 04/24/2025 Essential hypertensi on (ICD-10 - I10) 02/27/2025 Chronic kidney disea se, stage 3 unspecified (ICD-10 - N18.30) 01/18/2025 Chronic kidney disea se, stage 3 unspecified (ICD-10 - N18.30) 09/19/2024 Chronic kidney disea se, stage 3 unspecified (ICD-10 - N18.30) 08/31/2024 Chronic kidney disea se, stage 3 unspecified (ICD-10 - N18.30) 07/11/2024 Chronic kidney disea se, stage 3 unspecified (ICD-10 - N18.30) 07/11/2024 Essential hypertensi on (ICD-10 - I10) 10/05/2024 Chronic kidney disea se, stage 3 unspecified (ICD-10 - N18.30) 10/05/2024 Type 2 diabetes mellitus with hyperglycemia (ICD-10 - E11.65) 07/11/2024 Type 2 diabetes mellitus with hyperglycemia (ICD-10 - E11.65) 08/31/2024 Type 2 diabetes mellitus with hyperglycemia (ICD-10 - E11.65) 09/19/2024 Type 2 diabetes mellitus with hyperglycemia (ICD-10 - E11.65) 01/18/2025 Type 2 diabetes mellitus with hyperglycemia (ICD-10 - E11.65) 02/27/2025 Essential hypertensi on (ICD-10 - I10) 04/24/2025 Type 2 diabetes mellitus with hyperglycemia (ICD-10 - E11.65) 03/22/2025 Essential hypertensi on (ICD-10 - I10) 03/04/2025 Essential hypertensi on (ICD-10 - I10) 11/30/2024 Hypokalemia (ICD-10 - E87.6) 11/30/2024 Edema, unspecified (ICD-10 - R60.9) 03/22/2025 Type 2 diabetes mellitus with hyperglycemia (ICD-10 - E11.65) 03/04/2025 Type 2 diabetes mellitus with hyperglycemia (ICD-10 - E11.65) 04/24/2025 Renal osteodystrophy (ICD-10 - N25.0) 02/27/2025 Type 2 diabetes mellitus with hyperglycemia (ICD-10 - E11.65) 01/18/2025 Renal osteodystrophy (ICD-10 - N25.0) 09/19/2024 Renal osteodystrophy (ICD-10 - N25.0) 08/31/2024 Renal osteodystrophy (ICD-10 - N25.0) 07/11/2024 Renal osteodystrophy (ICD-10 - N25.0) 10/05/2024 Renal osteodystrophy (ICD-10 - N25.0) 10/05/2024 Secondary hyperparathyroidism, not elsewhere classified (ICD-10 - E21.1) 08/31/2024 Secondary hyperparathyroidism, not elsewhere classified (ICD-10 - E21.1) 07/11/2024 Secondary hyperparathyroidism, not elsewhere classified (ICD-10 - E21.1) 09/19/2024 Secondary hyperparathyroidism, not elsewhere classified (ICD-10 - E21.1) 01/18/2025 Secondary hyperparathyroidism, not elsewhere classified (ICD-10 - E21.1) 02/27/2025 Renal osteodystrophy (ICD-10 - N25.0) 04/24/2025 Secondary hyperparathyroidism, not elsewhere classified (ICD-10 - E21.1) 03/04/2025 Renal osteodystrophy (ICD-10 - N25.0) 03/22/2025 Renal osteodystrophy (ICD-10 - N25.0) 11/30/2024 Hyperlipidemia, unspecified (ICD-10 - E78.5) 11/30/2024 Renal osteodystrophy (ICD-10 - N25.0) 03/04/2025 Secondary hyperparathyroidism, not elsewhere classified (ICD-10 - E21.1) 03/22/2025 Secondary hyperparathyroidism, not elsewhere classified (ICD-10 - E21.1) 04/24/2025 Vitamin D deficiency , unspecified (ICD-10 - E55.9) 02/27/2025 Secondary hyperparathyroidism, not elsewhere classified (ICD-10 - E21.1) 01/18/2025 Vitamin D deficiency , unspecified (ICD-10 - E55.9) 09/19/2024 Vitamin D deficiency , unspecified (ICD-10 - E55.9) 07/11/2024 Vitamin D deficiency , unspecified (ICD-10 - E55.9) 08/31/2024 Vitamin D deficiency , unspecified (ICD-10 - E55.9) 10/05/2024 Vitamin D deficiency , unspecified (ICD-10 - E55.9) 10/05/2024 Viral upper respirat ory tract infection (ICD-10 - J06.9) 07/11/2024 Viral upper respirat ory tract infection (ICD-10 - J06.9) 08/31/2024 Viral upper respirat ory tract infection (ICD-10 - J06.9) 01/18/2025 Viral upper respirat ory tract infection (ICD-10 - J06.9) 09/19/2024 Viral upper respirat ory tract infection (ICD-10 - J06.9) 02/27/2025 Vitamin D deficiency , unspecified (ICD-10 - E55.9) 04/24/2025 Viral upper respirat ory tract infection (ICD-10 - J06.9) 03/22/2025 Vitamin D deficiency , unspecified (ICD-10 - E55.9) 03/04/2025 Vitamin D deficiency , unspecified (ICD-10 - E55.9) 11/30/2024 Secondary hyperparathyroidism, not elsewhere classified (ICD-10 - E21.1) 03/04/2025 Viral upper respirat ory tract infection (ICD-10 - J06.9) 03/22/2025 Viral upper respirat ory tract infection (ICD-10 - J06.9) 04/24/2025 Hyperlipidemia, unspecified (ICD-10 - E78.5) 09/19/2024 Essential hypertensi on (ICD-10 - I10) 01/18/2025 Essential hypertensi on (ICD-10 - I10) 02/27/2025 Viral upper respirat ory tract infection (ICD-10 - J06.9) 08/31/2024 Essential hypertensi on (ICD-10 - I10) 10/05/2024 Essential hypertensi on (ICD-10 - I10) 01/18/2025 Hyperlipidemia, unspecified (ICD-10 - E78.5) 04/24/2025 Metabolic disorder, unspecified (ICD-10 - E88.9) 02/27/2025 Hyperlipidemia, unspecified (ICD-10 - E78.5) 03/04/2025 Hyperlipidemia, unspecified (ICD-10 - E78.5) 03/22/2025 Hyperlipidemia, unspecified (ICD-10 - E78.5) 03/22/2025 Metabolic disorder, unspecified (ICD-10 - E88.9) 03/04/2025 Metabolic disorder, unspecified (ICD-10 - E88.9) 02/27/2025 Metabolic disorder, unspecified (ICD-10 - E88.9) 04/24/2025 Unspecified abdomina l hernia without obstruction or gangrene (ICD-10 - K46.9) 04/24/2025 Hypokalemia (ICD-10 - E87.6) 02/27/2025 Unspecified abdomina l hernia without obstruction or gangrene (ICD-10 - K46.9) 03/04/2025 Unspecified abdomina l hernia without obstruction or gangrene (ICD-10 - K46.9) 03/22/2025 Unspecified abdomina l hernia without obstruction or gangrene (ICD-10 - K46.9) 04/24/2025 Hypothyroidism, unspecified (ICD-10 - E03.9) 04/24/2025 Primary hyperparathyroidism (ICD-10 - E21.0) 09/20/2024 Other CancelRx Response got Denied on [...] Unable to Cancel Rx. Please contact Pharmacy Plan Of Treatment No Information
--- OUTSIDE RECORDS SUMMARY | 2025-06-25 11:21 | XMS_ITS | Encounter Summary ---
Demographics Address [address] [place] [address] Mobile Phone Home Phone Preferred Language Burundian Marital Status Single Presybeterian Affiliation Unknown Race White Ethnic Group Not or Lati no Author Organization [facility] Address [address] [place] [address] Care Team Providers Care Toy Assembler Wood Name Role Phone Khalif Reynolds MD Primary Care Provide r Chriss Hendrickson MD Unavailable [phone] Zaid Adams MD Unavailable [phone] Nadir Ross MD Unavailable [phone] Asad Aldridge MD Unavailable [phone] Encounter Details Date Type Department Care Team (Late st Contact Info) Description 09/02/2022 Telephone [facility] [address] [place] [address] Nicolasa Gilbert, RN Social History Tobacco Use [...] on file 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 Gender Identity Not on file Sexual Orientation Not on file documented as of this encounter Plan of Treatment Not on file documented as of this encounter Visit Diagnoses Not on filedocumented in this encounter Care Teams Toy Assembler Wood Relationship Specialty Start Date End Date Khalif Reynolds MD [address] [facility] [place] [address] [place] [address] PCP - General Internal Medicine 10/28/17 Chriss Hendrickson MD [address] [place] [address] [place] [address] Referring Physician Obstetrics and Gynecology 01/18/20 Zaid Adams MD [address] [place] [address] Referring Physician Gastroenterology 02/14/23 Nadir Ross MD [address] [place] [address] Consulting Physician Cardiovascular Disease 02/14/23 Asad Aldridge MD [address] [facility] [address] [place] [address] Consulting Physician General Surgery 05/08/25 documented as of this encounter
--- OUTSIDE RECORDS SUMMARY | 2025-06-25 11:21 | XMS_ITS ---
Author Organization [facility] Address [address] [place] [address] Care Team Providers Care Four Slide Machine Operator Name Role Phone MichaelMekaDamian Unavailable [phone] Problems Problem Type SNOMED Code ICD Code Onset Dates Problem Status W/U Status Risk Notes Problem Chronic kidney disease stage 3A (disorder) (886484072) Chronic kidney disease, stage 3a (N18.31) Active confirmed Problem Hypothyroidism, unspecified (E03.9) Active confirmed Problem Primary hyperparathyroidism (95338551) Primary hyperparathyroidism (E21.0) Active confirmed Encounters Encounter Location Date Provider Diagnosis [place] [facility] [address] [facility] [address] [place] [address] 04/24/2025 Damian Rodriguez Chronic kidney disea se, [...] hyperparathyroidism (ICD-10 - E21.0) Plan Of Treatment No Information Progress Notes * KAYLA CRISSYDOB:1955 (70 yo F)Acc No.[id number]:04/24/2025 Progress Notes Patient: CRISSY RUIZ Provider: Deepika ABDI MD, F.A.C.P, F.A.S.N. :1955 A ge:69 Y S ex:Female Date:04/24/2025 Address:[facility] [address] [address] Subjective: * Chief Complaints: * * Medical [...] Treatment: * Billing Information: * Visit Code: 58859 Office Visit, Est Pt., Level 4. * Procedure Codes: * Electronic signature of Raphael Rodriguez MD on 06/25/2025 at 11:20 AM CDT Sign off status: Pending * Provider: Deepika ABDI MD, F.A.C.P, F.A.S.N. Date: 04/24/2025 Generated for Printing/Faxing/eTransmitting on: 0 06/25/2025 11:20 AM CDT
--- OUTSIDE RECORDS SUMMARY | 2025-06-25 11:21 | XMS_ITS | Encounter Summary ---
Demographics Address [address] [place] [address] Mobile Phone Home Phone Preferred Language Equ[place] Guinean Marital Status Single Pentecostal Affiliation Unknown Race White Ethnic Group Not or Lati no Author Organization [facility] Healthcare Address [address] [place] [address] Care Team Providers Care Business Area Director Name Role Phone Khalif Reynolds MD Primary Care Provide r Chriss Hendrickson MD Unavailable [phone] Zaid [place] MD Unavailable [phone] Nadir Ross MD Unavailable [phone] Asad Aldridge MD Unavailable [phone] Encounter Details Date Type Department Care Team (Late st Contact Info) Description 07/07/2022 Telephone [facility] [place] [address] Mellissa Junior RN Social History Tobacco Use [...] on file 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 Gender Identity Not on file Sexual Orientation Not on file documented as of this encounter Plan of Treatment Not on file documented as of this encounter Visit Diagnoses Not on filedocumented in this encounter Care Teams Business Area Director Relationship Specialty Start Date End Date Khalif Reynolds MD [address] [facility] [place] [address] [place] [address] PCP - General Internal Medicine 10/28/17 Chriss Hendrickson MD [address] [place] [address] [place] [address] Referring Physician Obstetrics and Gynecology 01/18/20 Zaid Adams MD [address] [place] [address] Referring Physician Gastroenterology 02/14/23 Nadir Ross MD [address] [place] [address] Consulting Physician Cardiovascular Disease 02/14/23 Asad Aldridge MD [address] [facility] [place] [address] [place] [address] Consulting Physician General Surgery 05/08/25 documented as of this encounter
--- OUTSIDE RECORDS SUMMARY | 2025-06-25 11:21 | XMS_ITS | Clinical Summary ---
Demographics Address [address] [place] [address] Home Phone Mobile Phone Email Address Preferred Language Unknown Marital Status Latter-Day Affiliation Unknown Race White Ethnic Group Unknown Author Organization [facility] Address [address] [facility] [place] [address] Care Team Providers Care Horses Or Mules Teamster Name Role Phone Mar Reynolds MD Primary [...] by mouth daily. Active insulin glargine,hum.r ec.anlog (TOUJEO SOLOSTAR U-300 INSULIN SUBCUT) Inject by subcutaneous injection 2 times daily. Active docusate sodium (COLACE) 100 mg capsule Take 100 mg by mouth 2 times daily. 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 Encounters Date Type Department Care Team Description 05/28/2025 11:15 AM CDT Office Visit [facility] Oncology and Hematology - [place] [address] [place] [id number] Stephen Douglas MD Chronic anemia (Primary Dx) 05/27/2025 Orders Only Initial Department [address] JEROME: [place] [address] Provider, Historical 03/26/2025 Orders Only [facility] Oncology and Hematology - [place] [address] [place] [phone] Stephen Douglas MD Iron deficiency anemia, unspecified iron deficiency anemia type (Primary Dx) 03/25/2025 Abstract [facility] Oncology and Hematology [facility] [address] [facility] [place] [address] Stephen Douglas MD from Last 3 Months Family History Medical History Relation Name Comments [...] on file Legal Sex Female 3:07 AM ACUTE DIALYSIS REGISTERED NURSE Gender Identity Not on file Sexual Orientation Not on file Last Filed Vital Signs Vital Sign Reading Time Taken Comments Blood Pressure 112/69 05/28/2025 11:12 AM CDT Pulse 81 05/28/2025 11:12 AM CDT Temperature 36.7 C (98.1 F) 05/28/2025 11:12 AM CDT Respiratory Rate 16 05/28/2025 11:12 AM CDT Oxygen Saturation 94% 05/28/2025 11:12 AM CDT Inhaled Oxygen Concentration - - Weight 85.5 kg (188 lb 6.4 oz) 05/28/2025 11:12 AM CDT Height 161.3 cm (5' 3.5) 07/31/2020 11:29 AM CD T Body Mass Index 32.85 07/31/2020 11:29 AM CDT Plan of Treatment Upcoming Encounters Date Type Department Care Team (Late st Contact Info) Description 12/05/2025 10:15 AM ACUTE DIALYSIS REGISTERED NURSE Office Visit [facility] Oncology and Hematology [facility] [address] [place] [address] Stephen Douglas MD [address] [facility] [address] [place] [address] Health Maintenance Due Date Last Done Comments DIABETES MICROALBUMIN ANNUAL SCREEN 1974 LDL CHOLESTEROL ANNUAL 1974 ZOSTER VACCINE (1 of 2) 1975 FIT-DNA Q 3 years 2001 FIT/FOBT Q 1 year 2001 Flex Sig/CT Colonography Q 5 years 2001 Lung Cancer Screening 2006 RSV VACCINE (60+ or ) (1 - Risk 60-74 years 1-dose series) 2016 PNEUMOCOCCAL VACCINE 50+ YEA RS (2 of 2 - PCV) 12/17/2016 12/17/2015 DIABETES ANNUAL FOOT EXAM 02/21/2019 02/21/2018 DIABETES ANNUAL RETINAL EXAM 03/31/2021, 03/31/2020, 03/07/2018, Additional history exists BREAST CANCER SCREENING 09/01/2021 09/01/20 20, 09/01/2020, 12/04/2018, Additional history exists DIABETES HBA1C Q 6 MONTHS 11/17/20222021, 01/26/2021, 11/25/2020, Additional history exists OSTEOPOROSIS SCREENING 08/20/2024 08/20/2019 INFLUENZA VACCINE (#1) 2025 2, 09/07/2021, 08/27/2020, Additional history exists DTAP/TDAP/TD VACCINES (2 - T d or Tdap) 07/19/2029 07/19/2019 COLORECTAL SCREENING 08/31/2029 08/31/2019, 08/31/2019, 08/31/2019 Colorectal Cancer Screening 08/31/2029 Procedures Procedure Name Priority Date/Time Associated Diagnosis Comments VITAMIN B12 AND FOLATE Routine 9:02 AM CDT FERRITIN Routine 05/27/2025 9:02 AM CDT IRON, TIBC, AND PERCENT SATURATION Routine 05/27/2025 9:02 AM CDT CBC WITH DIFFERENTIAL Routine 05/27/2025 9:02 AM CDT COMPREHENSIVE METABOLIC PANEL Routine 05/27/2025 9:02 AM CDT from Last 3 Months Results * (ABNORMAL) VITAMIN B12 AND FOLATE (05/27/2025 9:02 AM CDT) VITAMIN B12 1213(H) 200 - 1100 pg/mL [facility] FOLATE, SERUM 7.1 ng/mL [facility] Comment: Reference Range Low: <3.4 Borderline: 3.4-5.4 Normal: >5.4 FASTING:YES FASTING: YES Test Performed at: [facility] [address] [place] [address] Andra Macias MD 05/27/2025 9:02 AM CDT 05/27/2025 9:04 AM CDT Stephen Douglas MD CHEMISTRY ORDERABLES Final Resu lt Performing Organization Address [facility] Co de Phone Number [facility] [phone] [address] [place] [phone] * (ABNORMAL) IRON, TIBC, AND PERCENT SATURATION (05/27/2025 9:02 AM CDT) IRON 42(L) 45 - 160 mcg/dL [facility] TIBC 311 250 - 450 mcg/dL (calc) [facility] IRON % SATURATION 14(L) 16 - 45 % (calc) [facility] Comment: FASTING:YES FASTING: YES Test Performed at: [facility] [address] [place] [address] Andra Macias MD 05/27/2025 9:02 AM CDT 05/27/2025 9:04 AM CDT Stephen Douglas MD CHEMISTRY ORDERABLES Final Resu lt Performing Organization Address [facility] Co de Phone Number [facility] [phone] [facility] [place] [address] * (ABNORMAL) CBC WITH DIFFERENTIAL (05/27/2025 9:02 AM CDT) Pathologist [facility] WBC 12.2(H) 3.8 - 10.8 Thousand/ uL [facility] RBC 5.05 3.80 - 5.10 Million/u L [facility] HEMOGLOBIN 14.5 11.7 - 15.5 g/dL [facility] HEMATOCRIT 45.3(H) 35.0 - 45.0 % [facility] MCV 89.7 80.0 - 100.0 fL [facility] MCH 28.7 27.0 - 33.0 pg [facility] MCHC 32.0 32.0 - 36.0 g/dL [facility] Comment: For adults, a slight decrease in the calculated MCHC value (in the range of 30 to 32 g/dL) is most likely not clinically significant; however, it should be interpreted with caution in correlation with other red cell parameters and the patient's clinical condition. RDW 16.0(H) 11.0 - 15.0 % [facility] PLATELETS 298 140 - 400 Thousand/ uL [facility] MPV 10.2 7.5 - 12.5 fL [facility] NEUTROPHIL ABSOLUTE 9,065(H) 1,500 - 7,800 cells/uL [facility] LYMPHOCYTE ABSOLUTE 1,976 850 - 3,900 cells/uL [facility] MONOCYTE ABSOLUTE 732 200 - 950 cells/uL [facility] EOSINOPHIL ABSOLUTE 378 15 - 500 cells/uL [facility] BASOPHILS ABSOLUTE 49 0 - 200 cells/uL [facility] NEUTROPHIL 74.3 % [facility] LYMPHOCYTES 16.2 % [facility] MONOCYTE 6.0 % [facility] EOSINOPHILS 3.1 % [facility] BASOPHILS 0.4 % [facility] Comment: FASTING:YES FASTING: YES Test Performed at: [facility] [address] [address] [facility] 05/27/2025 9:02 AM CDT 05/27/2025 9:04 AM CDT Stephen Douglas MD HEMATOLOGY ORDERABLES Final Res ult [facility] [phone] [facility] [address] [place] [address] * FERRITIN (05/27/2025 9:02 AM CDT) [facility] FERRITIN 139 16 - 288 ng/mL [facility] Comment: Test Performed at: [facility] [address] [place] [address] Andra Macias MD 05/27/2025 9:02 AM CDT 05/27/2025 9:04 AM CDT Stephen Douglas MD CHEMISTRY ORDERABLES Final Resu lt Performing Organization Address City/State/ZIP Co nc Phone Number [facility] [phone] [facility] [address] [place] [address] * (ABNORMAL) COMPREHENSIVE METABOLIC PANEL (05/27/2025 9:02 AM CDT) [facility] GLUCOSE 193(H) 65 - 99 mg/dL [facility] Comment: Fasting reference interval For someone without known diabetes, a glucose value >125 mg/dL indicates that they may have diabetes and this should be confirmed with a follow-up test. BUN 20 7 - 25 mg/dL [facility] CREATININE 1.07(H) 0.50 - 1.05 mg/dL [facility] GFR 57(L) > OR = 60 mL/min/1. 73m2 [facility] BUN/CREAT RATIO 19 6 - 22 (calc) [facility] SODIUM 137 135 - 146 mmol/L [facility] POTASSIUM 3.2(L) 3.5 - 5.3 mmol/L [facility] CHLORIDE 98 98 - 110 mmol/L [facility] CO2 29 20 - 32 mmol/L [facility] CALCIUM 8.8 8.6 - 10.4 mg/dL [facility] TOTAL PROTEIN 6.4 6.1 - 8.1 g/dL [facility] ALBUMIN 3.9 3.6 - 5.1 g/dL [facility] GLOBULIN 2.5 1.9 - 3.7 g/dL (calc) [facility] ALBUMIN/GLOBULIN RATIO 1.6 1.0 - 2.5 (calc) [facility] BILIRUBIN TOTAL 0.6 0.2 - 1.2 mg/dL [facility] ALKALINE PHOSPHATASE 103 37 - 153 U/L [facility] AST 17 10 - 35 U/L [facility] ALT 25 6 - 29 U/L [facility] Comment: FASTING:YES FASTING: YES Test Performed at: [facility] [place] [address] [address] [address] Andra Smart Gilberto 05/27/2025 9:02 AM CDT 05/27/2025 9:04 AM CDT us Stephen Douglas MD CHEMISTRY ORDERABLES Final Resu lt [facility] [phone] [place] [address] [address] [address] from Last 3 Months Insurance [facility] 1/[address] DUAL COMPLETE PPO DSNP [facility] [id number] [facility] PLAN [address] [place] [id number] [facility] DUAL COMPLETE PPO DSNP [facility] [id number] [facility] Care Teams Horses Or Mules Teamster Relationship Specialty Start Date End Date Mar Reynolds MD PCP - General Internal Medicine 02/13/19
--- OUTSIDE RECORDS SUMMARY | 2025-06-25 11:21 | XMS_ITS | Clinical Summary ---
Author Organization [facility] Address [facility] [place] [address] Care Team Providers Care Cooker Loader Name Role Phone Mar Reynolds MD Primary Care Provider Source Comments [facility],non-owned Affiliates and Associated Physician Practices is amultiple site organization consisting of ambulatory clinics and hospital sitesin [place], [place], [place] and [place]. This disclosure is being madepursuant to the Care Everywhere program and may not contain all information available regarding this patient. Last updated 18.[facility] Allergies Active Allergy Reactions Criticality Noted Date [...] fluticasone propionate (FLONASE) 50 MCG/ACT nasal spray [place] 2 (two) sprays into each nostril once [...] (02/05/2019): CPAP since about 2016 Asthma 05/26/2017 Immunizations Immunization Administration Dates Next Due HEP [...] on file Legal Sex Female 9:49 AM DIRECTOR OF CLINICAL SERVICES Gender Identity Not on file Sexual Orientation [...] 8:23 AM CDT Height 157.5 cm (5' 2) 02/07/2023 8:39 AM CDT Body Mass Index 34.02 02/07/2023 8:39 AM CDT Plan of Treatment Health Maintenance Due Date Last Done Comments BONE DENSITY TESTING 1955 COLOGUARD (AGES 45-75) - COLON CA SCREENING 1955 CT COLONOGRAPHY - COLON CA SCREENING 1955 FIT - COLON CA SCREENING 1955 FLEX SIG - COLON CA SCREENING 1955 MAMMOGRAM 1955 DTAP/TDAP/TD VACCINES (1 - Tdap) 1975 PNEUMOCOCCAL VACCINE 50+ (1 of 2 - PCV) 1975 ZOSTER VACCINE (1 of 2) 2006 Respiratory Syncytial Virus (RSV) Vaccine Pt: or over 60 yrs (1 - Risk 60-74 years 1-dose series) 2016 DIABETES RETINOPATHY SCREENING 02/05/2019 DIABETES-FOOT EXAM WITH MONOFILAMENT 02/05/2019 DIABETES-HGB A1C 11/17/2022 05/17/2022, 01/11/2020 HEPATITIS B VACCINE (2 of 3 - 19+ 3-dose series) 05/12/2023 04/14/2023 DIABETES-SERUM CREATININE 06/10/20232021, 06/07/2022, 06/06/2022, Additional history exists COVID-19 VACCINE ( season) 2024 09/06/2022, 09/06/2022, 03/01/2022, Additional history exists DEPRESSION SCREENING 11/14/2024 DIABETES - URINE PROTEIN SCREENING 11/14/2024 MEDICARE AWV CALENDAR YEAR 2024 INFLUENZA VACCINE (#1) 2025 , 08/27/2020, 07/19/2019, Additional history exists COLON MONITORING 08/31/2029 08/31/2019 COLONOSCOPY - COLON CA SCREENING 08/31/2029 08/31/2019 [...] Procedure Name Priority Date/Time Associated Diagnosis Comments COMP MET PANEL (EXTERNAL RESULT ENTRY) Routine 01/11/2020 HEMOGLOBIN A1C (EXTERNAL RESULT ENTRY) Routine 01/11/2020 HEPATITIS SCREEN ACUTE (EXTERNAL RESULTS) Routine 02/26/2019 3:06 PM CDT from Last 3 Months or Most Recently Relevant to Health Maintenance Results * (ABNORMAL) COMP MET PANEL (EXTERNAL RESULT [...] (EXTERNAL) Blood BLOOD SPECIMEN / Unknown 01/11/2020 [facility] Provider LAB - CHEMISTRY ORDERABLE S Final Result * (ABNORMAL) HEMOGLOBIN A1C (EXTERNAL RESULT ENTRY) (01/11/2020) Hemoglobin A1c (EXTERNAL RESULT) 7.4(A) 4.0 - 6.0 % Blood BLOOD SPECIMEN / Unknown 01/11/2020 [facility] Provider LAB - CHEMISTRY ORDERABLE S Final [...] Index (EXTERNAL) Blood 02/26/2019 3:06 PM CDT Result [facility] Provider LAB - CHEMISTRY ORDERABLE S Final Result from Last 3 Months or Most Recently Relevant to Health Maintenance Insurance MEDICAID - OUT OF STATE [facility] MANAGED MEDICARE ADV * Guarantor: Tsering Garza Account Type Relation to Patient Date of Phone Billing Address Personal/Family Self 1955 [facility] [address] [place] [address] [facility] MANAGED MEDICARE ADV [facility] MEDICAID Care Teams Cooker Loader Relationship Specialty Start Date End Date Mar Reynolds MD [address] [address] PCP - General Internal Medicine 12/27/18
== END 2025-06-25 10:31 | disposition home or self-care (01) ==
PROVIDERS: PCP Internal Medicine; Visit Provider Podiatrist Foot & Ankle Surgery
DX: M79.674 Pain in right toe(s) (principal)
CPT/HCPCS: 73660

== ENCOUNTER 2025-07-25 08:43 | Outpatient (CLI) | payer MEDICARE, MEDICAID, SELFPAY ==
--- NOTE | ~2025-07-25 | MM_ITS ---
EXAMINATION: MM screening elise BI w mackenzie HISTORY: Screening TECHNIQUE: Craniocaudal and mediolateral oblique 3-D tomosynthesis images were obtained and synthetic 2-D images were generated. CAD analysis was submitted and interpreted. COMPARISON: None provided BREAST PARENCHYMAL COMPOSITION: The breasts are almost entirely fatty. FINDINGS: There is no evidence of suspicious mass, calcification, or architectural distortion to suggest malignancy in either breast. IMPRESSION: 1. No mammographic evidence of malignancy. 2. Recommend routine screening mammography in one year. BI-RADS Category 1: Negative Reviewed, dictated and finalized at location B.
--- NOTE | ~2025-07-25 | US_ITS ---
EXAMINATION: US thyroid DATE: 07/25/2025 09:11 INDICATION: Hypothyroidism. TECHNIQUE: Multiple ultrasound images of the thyroid were obtained. COMPARISON: None. FINDINGS: The right thyroid lobe measures 6.9 x 2.4 x 2.1 cm. The left thyroid lobe measures 4.3 x 1.7 x 1.6 cm. The thyroid demonstrates diffusely heterogeneous echogenicity. Vascularity is normal. In the right thyroid lobe, there is a 12 mm solid, hypoechoic, wider than tall nodule with ill-defined margin without echogenic foci (TI-RADS TR4). In the right thyroid lobe, there is a 13 mm solid, hypoechoic, wider than tall nodule with ill-defined margin (TR4). In the left thyroid lobe, there is a 5 mm solid, hypoechoic, wider than tall nodule with smooth margin without echogenic foci (TR4). IMPRESSION: 1. Multinodular goiter. Consider thyroid ultrasound in one year. Reviewed, dictated and finalized at location E.
== END 2025-07-25 08:44 | disposition home or self-care (01) ==
LOC: MICIMG 08:44
PROVIDERS: PCP Internal Medicine; Visit Provider Internal Medicine
DX: Z12.31 Encounter for screening mammogram for malignant neoplasm of breast (principal); E03.9 Hypothyroidism, unspecified; E04.2 Nontoxic multinodular goiter
CPT/HCPCS: 76536; 77063; 77067

== ENCOUNTER 2025-10-04 12:49 | Outpatient (CLI) | payer MEDICARE, MEDICAID, SELFPAY ==
--- OUTSIDE RECORDS SUMMARY | 2024-11-30 08:15 | XMS_ITS ---
Author Organization [facility] Office Address [address] [place] [address] Care Team Providers Care Entry Level Finance Name Role Phone Michael Damian Unavailable [phone] Social History Sex Assigned At : Social History Observation Description Sex Assigned At Female Problems Problem Type SNOMED Code ICD Code Onset Dates Problem Status W/U Status Risk Notes Problem Hyperlipidemia (93930805) Hyperlipidemia, unspecified (E78.5) Active confirmed Encounters Encounter Location Date Provider Diagnosis [facility] [address] [facility] [address] [place] [address] 11/30/2024 Damian Rodriguez Chronic kidney disease, stage 3 unspecified N18.30 ; Type 2 diabetes mellitus with hyperglycemia E11.65 ; Hypokalemia E87.6 ; Edema, unspecified R60.9 ; Hyperlipidemia, unspecified E78.5 ; Renal osteodystrophy N25.0 and Secondary hyperparathyroidism, not elsewhere classified E21.1 Assessments Encounter Date Diagnosis (ICD Code) Assessment Notes Treatment Notes Treatment Clinical Notes Section Notes 11/30/2024 Chronic kidney disease, stage 3 unspecified (ICD-10 - N18.30) 11/30/2024 Type 2 diabetes mellitus with hyperglycemia (ICD-10 - E11.65) 11/30/2024 Hypokalemia (ICD-10 - E87.6) 11/30/2024 Edema, unspecified (ICD-10 - R60.9) 11/30/2024 Hyperlipidemia, unspecified (ICD-10 - E78.5) 11/30/2024 Renal osteodystrophy (ICD-10 - N25.0) 11/30/2024 Secondary hyperparathyroidism , not elsewhere classified (ICD-10 - E21.1) Plan Of Treatment Next Appt Details Provider Name:Damian Rodriguez , 10/18/2025 02:30:00 PM, [facility], [place], [address], Progress Notes * CRISSY GARZADOB:1955 (70 yo F)Acc No.[id number]:11/30/2024 Progress Notes Patient: CRISSY RUIZ Provider: Deepika ABDI MD, Rk.Kael.Holland.P, F.A.S.N. :1955 A ge:69 Y S ex:Female Date:11/30/2024 Address:[facility] 11/15 [id number] Subjective: * Chief Complaints: * * Medical History: Objective: * Vitals: Assessment: * Assessment: 1. C hronic kidney disease, stage 3 unspecified - N18.30 (Primary) 2 . T ype 2 diabetes mellitus with hyperglycemia - E11.65 3 . H ypokalemia - E87.6 ? 4 . E janes, unspecified - R60.9 5 . H yperlipidemia, unspecified - E78.5 6 . R enal osteodystrophy - N25.0 7 . S econdary hyperparathyroidism, not elsewhere classified - E21.1 Plan: * Treatment: * Billing Information: * Visit Code: 48530 Office Visit, Est Pt., Level 4. * Procedure Codes: * Electronic signature of Raphael Rodriguez MD on 10/04/2025 at 12:56 PM SALES PROJECT COORDINATOR Sign off status: Pending * Provider: Deepkia ABDI MD, F.Kael.C.P, F.A.S.N. Date: 11/30/2024 Generated for Printing/Faxing/eTransmitting on: 12/04/2024 12:56 PM SALES PROJECT COORDINATOR
--- OUTSIDE RECORDS SUMMARY | 2025-01-18 08:30 | XMS_ITS ---
Author Organization [facility] Office Address [address] [facility] [address] [facility] [address] [place] [address] Care Team Providers Care Digital Operations Analyst Name Role Phone Michael Damian Unavailable [phone] Medications Medication SIG (Take, Route, Frequency, Duration) Notes Start Date End Date Status Torsemide 100 MG TAKE 1/2 TABLET BY MOUTH TWICE DAILY DIRECTED; Duration: 90 Active Calcitriol 0.25 MCG TAKE 1 CAPSULE BY MO UTH TWICE DAILY; Duration: 90 Active Allopurinol 300 MG TAKE 1 TABLET BY MAY TH DAILY; Duration: 90 Active Potassium Chloride ER 20 MEQ TAKE 1 TABLET BY MOUTH TWICE DAILY WITH FOOD; Duration: 90 Active Spironolactone 25 MG 1 tablet Orally onc e a day; Duration: 90 days 09/20/2024 09/15/2025 Active Cipro 500 MG 1 tablet Orally ever y 12 hrs; Duration: 10 01/18/2024 Active Vitamin D (Ergocalciferol) 1.25 MG (03643 UT) TAKE 1 CAPSULE BY MOUTH 1 TIME A WEEK; Duration: 91 Active Klor-Con 20 MEQ MIX AND DRINK 1 PACK ET BY MOUTH DAILY WITH FOOD; Duration: 90 Active Medrol 4 MG as directed Orally 03/10/2022 Active Azithromycin 1 GM 1 martina as directed 03/10/2022 Active Protonix 40 MG 1 tablet Orally Once a day; Duration: 90 day(s) 03/10/2022 Active Social History Sex Assigned At : Social History Observation Description Sex Assigned At Female Encounters Encounter Location Date Provider Diagnosis [place] [facility] 2043 [facility] 15 [place] [address] 01/18/2025 Damian Rodriguez Chronic kidney disea se, stage 3 unspecified N18.30 ; Type 2 diabetes mellitus with hyperglycemia E11.65 ; Renal osteodystrophy N25.0 ; Secondary hyperparathyroidism, not elsewhere classified E21.1 ; Vitamin D deficiency, unspecified E55.9 ; Viral upper respiratory tract infection J06.9 ; Essential hypertension I10 and Hyperlipidemia, unspecified E78.5 Assessments Encounter Date Diagnosis (ICD Code) Assessment Notes Treatment Notes Treatment Clinical Notes Section Notes 01/18/2025 Chronic kidney disease, stage 3 unspecified (ICD-10 - N18.30) 01/18/2025 Type 2 diabetes mellitus with hyperglycemia (ICD-10 - E11.65) 01/18/2025 Renal osteodystrophy (ICD-10 - N25.0) 01/18/2025 Secondary hyperparathyroidism , not elsewhere classified (ICD-10 - E21.1) 01/18/2025 Vitamin D deficiency, unspecified (ICD-10 - E55.9) 01/18/2025 Viral upper respiratory tract infection (ICD-10 - J06.9) 01/18/2025 Essential hypertension (ICD-10 - I10) 01/18/2025 Hyperlipidemia, unspecified (ICD-10 - E78.5) Plan Of Treatment Next Appt Details Provider Name:Damian Rodriguez , 10/18/2025 02:30:00 PM, [address], [address], Progress Notes * KAYLA, CRISSYDOB:1955 (70 yo F)Acc No.[id number]:01/18/2025 Progress Notes Patient: CRISSY RUIZ Provider: Deepika ABDI MD, F.A.C.P, F.A.S.N. :1955 A ge:69 Y S ex:Female Date:01/18/2025 Address:[facility] 11/15 [id number] Subjective: * Chief Complaints: * * Medical History: * Medications: T aking Protonix 40 MG Tablet Delayed Release 1 tablet Orally Once a day , Taking Medrol 4 MG Tablet Therapy Pack as directed Orally , Taking Azithromycin 1 GM Packet 1 martina as directed , Taking Cipro 500 MG Tablet 1 tablet Orally every 12 hrs , Taking Vitamin D (Ergocalciferol) 1.25 MG (38054 UT) Capsule TAKE 1 CAPSULE BY MOUTH 1 TIME A WEEK , Taking Klor-Con 20 MEQ Packet MIX AND DRINK 1 PACKET BY MOUTH DAILY WITH FOOD , Taking Spironolactone 25 MG Tablet 1 tablet Orally once a day , stop date 09/15/2025, Taking Torsemide 100 MG Tablet TAKE 1/2 TABLET BY MOUTH TWICE DAILY DIRECTED , Taking Calcitriol 0.25 MCG Capsule TAKE 1 CAPSULE BY MOUTH TWICE DAILY , Taking Allopurinol 300 MG Tablet TAKE 1 TABLET BY MOUTH DAILY , Taking Potassium Chloride ER 20 MEQ Tablet Extended Release TAKE 1 TABLET BY MOUTH TWICE DAILY WITH FOOD Objective: * Vitals: Assessment: * Assessment: 1. C hronic kidney disease, stage 3 unspecified - N18.30 (Primary) 2 . T ype 2 diabetes mellitus with hyperglycemia - E11.65 3 . R enal osteodystrophy - N25.0 4 . S econdary hyperparathyroidism, not elsewhere classified - E21.1 & #160; 5 . V itamin D deficiency, unspecified - E55.9 6 . V iral upper respiratory tract infection - J06.9 7 . E ssential hypertension - I10 ?8. H yperlipidemia, unspecified - E78.5 Plan: * Treatment: * Billing Information: * Visit Code: 85203 Office Visit, Est Pt., Level 5. * Procedure Codes: * Electronic signature of Raphael Rodriguez MD on 10/04/2025 at 12:54 PM MECHATRONICS TECHNOLOGIST Sign off status: Pending * Provider: Deepika ABDI MD, F.A.C.P, F.A.S.N. Date: 0 01/18/2025 Generated for Printing/Faxing/eTransmitting on: 12/04/2024 12:54 PM MECHATRONICS TECHNOLOGIST
--- OUTSIDE RECORDS SUMMARY | 2025-02-27 09:30 | XMS_ITS ---
Author Organization [facility] Office Address [address] [place] [address] Care Team Providers Care Activity Coordinator Name Role Phone MichaelMekaDamian Unavailable [phone] Social History Sex Assigned At : Social History Observation Description Sex Assigned At Female Problems Problem Type SNOMED Code ICD Code Onset Dates Problem Status W/U Status Risk Notes Problem Metabolic disorder (56482860) Metabolic disorder, unspecified (E88.9) Active confirmed Problem Hernia of abdominal cavity (disorder) (86601160) Unspecified abdominal hernia without obstruction or gangrene (K46.9) Active confirmed Encounters Encounter Location Date Provider Diagnosis [place] [facility] 2043 [facility] 15 [place] [address] 02/27/2025 Damian Rodriguez Chronic kidney disea se, stage 3 unspecified N18.30 ; Essential hypertension I10 ; Type 2 diabetes mellitus with hyperglycemia E11.65 ; Renal osteodystrophy N25.0 ; Secondary hyperparathyroidism, not elsewhere classified E21.1 ; Vitamin D deficiency, unspecified E55.9 ; Viral upper respiratory tract infection J06.9 ; Hyperlipidemia, unspecified E78.5 ; Metabolic disorder, unspecified E88.9 and Unspecified abdominal hernia without obstruction or gangrene K46.9 Assessments Encounter Date Diagnosis (ICD Code) Assessment Notes Treatment Notes Treatment Clinical Notes Section Notes 02/27/2025 Chronic kidney disease, stage 3 unspecified (ICD-10 - N18.30) 02/27/2025 Essential hypertension (ICD-10 - I10) 02/27/2025 Type 2 diabetes mellitus with hyperglycemia (ICD-10 - E11.65) 02/27/2025 Renal osteodystrophy (ICD-10 - N25.0) 02/27/2025 Secondary hyperparathyroidism , not elsewhere classified (ICD-10 - E21.1) 02/27/2025 Vitamin D deficiency, unspecified (ICD-10 - E55.9) 02/27/2025 Viral upper respiratory tract infection (ICD-10 - J06.9) 02/27/2025 Hyperlipidemia, unspecified (ICD-10 - E78.5) 02/27/2025 Metabolic disorder, unspecified (ICD-10 - E88.9) 02/27/2025 Unspecified abdominal hernia without obstruction or gangrene (ICD-10 - K46.9) Plan Of Treatment Next Appt Details Provider Name:Damian Michael , 10/18/2025 02:30:00 PM, 2043 [facility] [address], [address], Progress Notes * KAYLA, CRISSYDOB:1955 (70 yo F)Acc No.[id number]:02/27/2025 Progress Notes Patient: CRISSY RUIZ Provider: Deepika ABDI MD, F.A.C.P, F.A.S.N. :1955 A ge:69 Y S ex:Female Date:02/27/2025 Address:[facility] 11/15 [id number] Subjective: * Chief Complaints: * * Medical History: Objective: * Vitals: Assessment: * Assessment: 1. C hronic kidney disease, stage 3 unspecified - N18.30 (Primary) 2 . E ssential hypertension - I10 3 . T ype 2 diabetes mellitus with hyperglycemia - E11.65 4 . R enal osteodystrophy - N25.0 5 . S econdary hyperparathyroidism, not elsewhere classified - E21.1 6 . V itamin D deficiency, unspecified - E55.9 7 . V iral upper respiratory tract infection - J06.9 ?8. H yperlipidemia, unspecified - E78.5 9 . M etabolic disorder, unspecified - E88.9 1 0. U nspecified abdominal hernia without obstruction or gangrene - K46.9 Plan: * Treatment: * Billing Information: * Visit Code: 36806 Office Visit, Est Pt., Level 4. * Procedure Codes: * Electronic signature of Raphael Rodriguez MD on 10/04/2025 at 12:54 PM TUBE DRAW HELPER Sign off status: Pending * Provider: Deepika ABDI MD, F.A.C.P, F.A.S.N. Date: 0 02/27/2025 Generated for Printing/Faxing/eTransmitting on: 1 12/04/2024 12:54 PM TUBE DRAW HELPER
--- OUTSIDE RECORDS SUMMARY | 2025-03-04 11:45 | XMS_ITS ---
Author Organization [facility] Office Address [address] [place] [address] Care Team Providers Care Exploration Manager Name Role Phone MichaelMekaDamian Unavailable [phone] Social History Sex Assigned At : Social History Observation Description Sex Assigned At Female Encounters Encounter Location Date Provider Diagnosis [place] [facility] 2043 [facility] 15 [place] [address] 03/04/2025 Damian Rodriguez Chronic kidney disea se, stage [...] Treatment Notes Treatment Clinical Notes Section Notes 03/04/2025 Chronic kidney disease, stage 3 unspecified (ICD-10 - N18.30) 03/04/2025 Essential hypertension (ICD-10 - I10) 03/04/2025 Type 2 diabetes mellitus with hyperglycemia (ICD-10 - E11.65) 03/04/2025 Renal osteodystrophy (ICD-10 - N25.0) 03/04/2025 Secondary hyperparathyroidism , not elsewhere classified (ICD-10 - E21.1) 03/04/2025 Vitamin D deficiency, unspecified (ICD-10 - E55.9) 03/04/2025 Viral upper respiratory tract infection (ICD-10 - J06.9) 03/04/2025 Hyperlipidemia, unspecified (ICD-10 - E78.5) 03/04/2025 Metabolic disorder, unspecified (ICD-10 - E88.9) 03/04/2025 Unspecified abdominal hernia without obstruction or gangrene (ICD-10 - K46.9) Plan Of Treatment Next Appt Details Provider Name:Damian Rodriguez , 10/18/2025 02:30:00 PM, 2043 [facility], [facility] 15, [place], [address], Progress Notes * CRISSY GARZADOB:1955 (70 yo F)Acc No.[id number]:03/04/2025 Patient: CRISSY RUIZ Provider: Deepika ABDI MD, F.A.C.P, F.A.S.N. :1955 A ge:69 Y S ex:Female Date:03/04/2025 Address:[facility] 11/15 [id number] Subjective: * Chief Complaints: Objective: Assessment: * Assessment: 1. C hronic kidney [...] obstruction or gangrene - K46.9 Plan: * Billing Information: * Visit Code: * Procedure Codes: * Electronic signature of Raphael Rodriguez MD on 10/04/2025 at 12:53 PM OVEREDGER Sign off status: Pending * Provider: Deepika ABDI MD, F.A.C.P, F.A.S.N. Date: 0 03/04/2025 Generated for Printing/Faxing/eTransmitting on: 1 12/04/2024 12:53 PM OVEREDGER
--- OUTSIDE RECORDS SUMMARY | 2025-03-22 11:00 | XMS_ITS ---
Author Organization [facility] Address [address] [place] [address] Care Team Providers Care Track Repairer Name Role Phone MichaelMekaDamian Unavailable [phone] Social History Sex Assigned At : Social History Observation Description Sex Assigned At Female Encounters Encounter Location Date Provider Diagnosis [place] [facility] [address] [facility] 15 [place] [address] 03/22/2025 Damian Rodriguez Chronic kidney disea se, stage [...] Treatment Notes Treatment Clinical Notes Section Notes 03/22/2025 Chronic kidney disease, stage 3 unspecified (ICD-10 - N18.30) 03/22/2025 Essential hypertension (ICD-10 - I10) 03/22/2025 Type 2 diabetes mellitus with hyperglycemia (ICD-10 - E11.65) 03/22/2025 Renal osteodystrophy (ICD-10 - N25.0) 03/22/2025 Secondary hyperparathyroidism , not elsewhere classified (ICD-10 - E21.1) 03/22/2025 Vitamin D deficiency, unspecified (ICD-10 - E55.9) 03/22/2025 Viral upper respiratory tract infection (ICD-10 - J06.9) 03/22/2025 Hyperlipidemia, unspecified (ICD-10 - E78.5) 03/22/2025 Metabolic disorder, unspecified (ICD-10 - E88.9) 03/22/2025 Unspecified abdominal hernia without obstruction or gangrene (ICD-10 - K46.9) Plan Of Treatment Next Appt Details Provider Name:Damian Michael , 10/18/2025 02:30:00 PM, [address] [facility], [place], [address], Progress Notes * CRISSY GARZADOB:1955 (70 yo F)Acc No.[id number]:03/22/2025 Patient: CRISSY RUIZ Provider: Deepika ABDI MD, F.A.C.P, F.A.S.N. :1955 A ge:69 Y S ex:Female Date:03/22/2025 Address:[facility] [address] [facility] Subjective: * Chief Complaints: Objective: Assessment: * [...] Plan: * Billing Information: * Visit Code: 84050 Office Visit, Est Pt., Level 5. * Procedure Codes: * Electronic signature of Raphael Rodriguez MD on 10/04/2025 at 12:55 PM TUBULAR STOCK GLASS BULB MACHINE FORMER Sign off status: Pending * Provider: Deepika ABDI MD, Rk.Kael.C.P, F.A.S.N. Date: 0 03/22/2025 Generated for Printing/Faxing/eTransmitting on: 12/04/2024 12:55 PM TUBULAR STOCK GLASS BULB MACHINE FORMER
--- OUTSIDE RECORDS SUMMARY | 2025-04-24 08:45 | XMS_ITS ---
Author Organization [facility] Address [address] [place] [address] Care Team Providers Care Dietetic Assistant Name Role Phone MichaelMikeDamian Unavailable [phone] Social History Sex Assigned At : Social History Observation Description Sex Assigned At Female Problems Problem Type SNOMED Code ICD Code Onset Dates Problem Status W/U Status Risk Notes Problem Chronic kidney disease stage 3A (disorder) (165944300) Chronic kidney disease, stage 3a (N18.31) Active confirmed Problem Hypothyroidism (25177921) Hypothyroidism, unspecified (E03.9) Active confirmed Problem Primary hyperparathyroidism (26574275) Primary hyperparathyroidism (E21.0) Active confirmed Encounters Encounter Location Date Provider Diagnosis [place] [facility] [address] [facility] 15 [place] [address] 04/24/2025 Damian Rodrigeuz Chronic kidney disea se, stage 3a N18.31 ; Essential hypertension I10 ; Type 2 diabetes mellitus with hyperglycemia E11.65 ; Renal osteodystrophy N25.0 ; Secondary hyperparathyroidism, not elsewhere classified E21.1 ; Vitamin D deficiency, unspecified E55.9 ; Viral upper respiratory tract infection J06.9 ; Hyperlipidemia, unspecified E78.5 ; Metabolic disorder, unspecified E88.9 ; Unspecified abdominal hernia without obstruction or gangrene K46.9 ; Hypokalemia E87.6 ; Hypothyroidism, unspecified E03.9 and Primary hyperparathyroidism E21.0 Assessments Encounter Date Diagnosis (ICD Code) Assessment Notes Treatment Notes Treatment Clinical Notes Section Notes 04/24/2025 Chronic kidney disea se, stage 3a (ICD-10 - N18.31) 04/24/2025 Essential hypertensi on (ICD-10 - I10) 04/24/2025 Type 2 diabetes mellitus with hyperglycemia (ICD-10 - E11.65) 04/24/2025 Renal osteodystrophy (ICD-10 - N25.0) 04/24/2025 Secondary hyperparathyroidism, not elsewhere classified (ICD-10 - E21.1) 04/24/2025 Vitamin D deficiency , unspecified (ICD-10 - E55.9) 04/24/2025 Viral upper respirat ory tract infection (ICD-10 - J06.9) 04/24/2025 Hyperlipidemia, unspecified (ICD-10 - E78.5) 04/24/2025 Metabolic disorder, unspecified (ICD-10 - E88.9) 04/24/2025 Unspecified abdomina l hernia without obstruction or gangrene (ICD-10 - K46.9) 04/24/2025 Hypokalemia (ICD-10 - E87.6) 04/24/2025 Hypothyroidism, unspecified (ICD-10 - E03.9) 04/24/2025 Primary hyperparathyroidism (ICD-10 - E21.0) Plan Of Treatment Next Appt Details Provider Name:Damian Rodriguez , 10/18/2025 02:30:00 PM, [address], [address], Progress Notes * KAYLA, CRISSYDOB:1955 (70 yo F)Acc No.[id number]:04/24/2025 Progress Notes Patient: CRISSY RUIZ Provider: Deepika ABDI MD, F.A.C.P, F.A.S.N. :1955 A ge:69 Y S ex:Female Date:04/24/2025 Address:[facility] 11[address] [facility] Subjective: * Chief Complaints: * * Medical History: Objective: * Vitals: Assessment: * Assessment: 1. C hronic kidney disease, stage 3a - N18.31 (Primary) 2 . E ssential hypertension - I10 3 . T ype 2 diabetes mellitus with hyperglycemia - E11.65 ? 4 . R enal osteodystrophy - N25.0 5 . S econdary hyperparathyroidism, not elsewhere classified - E21.1 6 . V itamin D deficiency, unspecified - E55.9 7 . V iral upper respiratory tract infection - J06.9 8 . H yperlipidemia, unspecified - E78.5 9 . M etabolic disorder, unspecified - E88.9 1 0. U nspecified abdominal hernia without obstruction or gangrene - K46.9? 11. H ypokalemia - E87.6 1 2. H ypothyroidism, unspecified - E03.9 1 3. P rimary hyperparathyroidism - E21.0 Plan: * Treatment: * Billing Information: * Visit Code: 22999 Office Visit, Est Pt., Level 4. * Procedure Codes: * Electronic signature of Raphael Rodriguez MD on 10/04/2025 at 12:56 PM [facility] Sign off status: Pending * Provider: Deepika ABDI MD, F.A.C.P, F.A.S.N. Date: 0 04/24/2025 Generated for Printing/Faxing/eTransmitting on: 1 12/04/2024 12:56 PM [facility]
--- OUTSIDE RECORDS SUMMARY | 2025-06-21 02:40 | XMS_ITS ---
Author Organization [facility] Address [address] [place] [address] [place] [address] Care Team Providers Care Chief Recordist Name Role Phone Vicky Siddiqi Unavailable [phone] REASON FOR VISIT referral / diabetes Encounters Encounter Location Date Provider Diagnosis [facility] S[facility] [address] [place] [address] 06/21/2025 Vicky Siddiqi Plan Of Treatment No Information Progress Notes * KAYLATsering JUANDOB:1955 (70 yo F)Acc No.[id number]:06/21/2025 Progress Notes Patient: Tsering Garcia Provider: Jarret Siddiqi MD :1955 A ge:70 Y S ex:Female Date:06/21/2025 Phone: Address:[address] [place], [place] [id number] Subjective: * Chief Complaints: * R eferral / diabetes * Electronic signature of Rafa Siddiqi MD on 10/04/2025 at 12:54 PM SKI TOW OPERATOR Sign off status: Pending * Provider: Jarret Siddiqi MD Date: 0 06/21/2025 Generated for Danny wright/Asmita/eTransmitting on: 12/04/2024 12:54 PM SKI TOW OPERATOR
--- OUTSIDE RECORDS SUMMARY | 2025-07-03 08:15 | XMS_ITS ---
Author Organization [facility] Address [address] [place] [address] [place] [address] Care Team Providers Care Health Safety Engineer Name Role Phone Damian Rodriguez Unavailable [phone] Medications Medication SIG (Take, Route, Frequency, Duration) Notes Start Date End Date Status Calcitriol 0.25 MCG TAKE 1 CAPSULE BY MO UTH TWICE DAILY; Duration: 90 Active Potassium Chloride ER 20 MEQ TAKE 1 TABLET BY MOUTH TWICE DAILY WITH FOOD; Duration: 90 Active Cipro 500 MG 1 tablet Orally ever y 12 hrs; Duration: 10 01/18/2024 Active Torsemide 100 MG TAKE 1/2 TABLET BY MOUTH TWICE DAILY DIRECTED; Duration: 90 Active Allopurinol 300 MG TAKE 1 TABLET BY MAY TH DAILY; Duration: 90 Active Medrol 4 MG as directed Orally 03/10/2022 Active Vitamin D (Ergocalciferol) 1.25 MG (50110 UT) TAKE 1 CAPSULE BY MOUTH 1 TIME A WEEK; Duration: 91 Active Azithromycin 1 GM 1 martina as directed 03/10/2022 Active Spironolactone 25 MG 1 tablet Orally onc e a day; Duration: 90 days 09/20/2024 09/15/2025 Active Klor-Con 20 MEQ MIX AND DRINK 1 PACK ET BY MOUTH DAILY WITH FOOD; Duration: 90 Active Protonix 40 MG 1 tablet Orally Once a day; Duration: 90 day(s) 03/10/2022 Active Jardiance 10 MG TAKE 1 TABLET BY MAY TH DAILY; Duration: 30 Active Social History Sex Assigned At : Social History Observation Description Sex Assigned At Female Problems Problem Type SNOMED Code ICD Code Onset Dates Problem Status W/U Status Risk Notes Problem Coronary artery disease (85004785) CAD (coronary artery disease) (I25.10) Active confirmed Problem History of malignant neoplasm of ovary (429782069) Personal history of malignant neoplasm of ovary (Z85.43) Active confirmed Encounters Encounter Location Date Provider Diagnosis [facility] [address] [facility] [address] [place] [address] 07/03/2025 Damian Rodriguez Chronic kidney disea se, stage [...] hernia without obstruction or gangrene K46.9 ; Hypothyroidism, unspecified E03.9 ; Primary hyperparathyroidism E21.0 ; Hypokalemia E87.6 ; CAD (coronary artery disease) I25.10 ; Glycosuria R81 and Personal history of malignant neoplasm of ovary Z85.43 Assessments Encounter Date Diagnosis (ICD Code) Assessment Notes Treatment Notes Treatment Clinical Notes Section Notes 07/03/2025 Chronic kidney disea se, stage 3a (ICD-10 - N18.31) 07/03/2025 Essential hypertensi on (ICD-10 - I10) 07/03/2025 Type 2 diabetes mellitus with hyperglycemia (ICD-10 - E11.65) 07/03/2025 Renal osteodystrophy (ICD-10 - N25.0) 07/03/2025 Secondary hyperparathyroidism, not elsewhere classified (ICD-10 - E21.1) 07/03/2025 Vitamin D deficiency , unspecified (ICD-10 - E55.9) 07/03/2025 Viral upper respirat ory tract infection (ICD-10 - J06.9) 07/03/2025 Hyperlipidemia, unspecified (ICD-10 - E78.5) 07/03/2025 Metabolic disorder, unspecified (ICD-10 - E88.9) 07/03/2025 Unspecified abdomina l hernia without obstruction or gangrene (ICD-10 - K46.9) 07/03/2025 Hypothyroidism, unspecified (ICD-10 - E03.9) 07/03/2025 Primary hyperparathyroidism (ICD-10 - E21.0) 07/03/2025 Hypokalemia (ICD-10 - E87.6) 07/03/2025 CAD (coronary artery disease) (ICD-10 - I25.10) 07/03/2025 Glycosuria (ICD-10 - R81) 07/03/2025 Personal history of malignant neoplasm of ovary (ICD-10 - Z85.43) Plan Of Treatment Next Appt Details Provider Name:Damian Rodriguez , 10/18/2025 02:30:00 PM, [address] [facility] [address], [place], [address], Progress Notes * CRISSY GARZADOB:1955 (70 yo F)Acc No.[id number]:07/03/2025 Progress Notes Patient: CRISSY RUIZ Provider: Deepika ABDI MD, F.A.C.P, F.A.S.N. :1955 A ge:70 Y S ex:Female Date:07/03/2025 Address:[facility] [address] [facility] Subjective: * Chief Complaints: Objective: Assessment: [...] obstruction or gangrene - K46.9? 11. H ypothyroidism, unspecified - E03.9 1 2. P rimary hyperparathyroidism - E21.0 1 3. H ypokalemia - E87.6 1 4. C AD (coronary artery disease) - I25.10 1 5. G lycosuria - R81 1 6. P ersonal history of malignant neoplasm of ovary - Z85.43 Plan: * Billing Information: * Visit Code: 42767 Office Visit, Est Pt., Level 4. * Procedure Codes: * Electronic signature of Raphael Rodriguez MD on 10/04/2025 at 12:55 PM LOOM DOFFER Sign off status: Pending * Provider: Deepika ABDI MD, F.A.C.P, F.A.S.N. Date: 0 07/03/2025 Generated for Printing/Faxing/eTransmitting on: 1 12/04/2024 12:55 PM LOOM DOFFER
--- OUTSIDE RECORDS SUMMARY | 2025-08-28 13:45 | XMS_ITS ---
Author Organization [facility] Address [address] [facility] [address] [facility] [address] [place] [address] Care Team Providers Care Bioinformatics Software Engineer Name Role Phone MichaelMkeaDamian Unavailable [phone] REASON FOR VISIT r/s 09/13 Social History Sex Assigned At : Social History Observation Description Sex Assigned At Female Encounters Encounter Location Date Provider Diagnosis [place] [facility] [address] [facility] [address] [place] [address] 08/28/2025 Damian Rodriguez Plan Of Treatment Next Appt Details Provider Name:Damian Rodriguez , 10/18/2025 02:30:00 PM, [address] [facility] [address], [place], [address], Progress Notes * CRISSY GARZADOB:1955 (70 yo F)Acc No.[id number]:08/28/2025 Progress Notes Patient: CRISSY RUIZ Provider: Deepika ABDI MD, Rk.Kael.C.P, F.A.S.N. :1955 A ge:70 Y S ex:Female Date:08/28/2025 Address:[facility] [place], [place] [id number] Subjective: * Chief Complaints: Objective: Assessment: Plan: * Billing Information: * Visit Code: * Procedure Codes: * Electronic signature of Raphael Rodriguez MD on 10/04/2025 at 12:55 PM JUNIOR PHP DEVELOPER Sign off status: Pending * Provider: Deepika ABDI MD, Rk.Kael.C.P, F.A.S.N. Date: Generated for Printing/Faxing/eTransmitting on: 12/04/2024 12:55 PM JUNIOR PHP DEVELOPER
--- OUTSIDE RECORDS SUMMARY | 2025-09-13 12:00 | XMS_ITS ---
Author Organization [facility] Office Address [address] [facility] [address] [place] [address] Care Team Providers Care Surveyor Mine Name Role Phone MichaelMekaDamian Unavailable [phone] Social History Sex Assigned At : Social History Observation Description Sex Assigned At Female Encounters Encounter Location Date Provider Diagnosis [facility] [address] [facility] [address] [place] [address] 09/13/2025 Damian Rodriguez Plan Of Treatment Next Appt Details Provider Name:Damian Rodriguez , 10/18/2025 02:30:00 PM, [address] [facility], [facility] [address], [place], [address], Progress Notes * CRISSY GARZADOB:1955 (70 yo F)Acc No.[id number]:09/13/2025 Progress Notes Patient: CRISSY RUIZ Provider: Deepika ABDI MD, Rk.Kael.C.P, F.A.S.N. :1955 A ge:70 Y S ex:Female Date:09/13/2025 Address:[facility] [place], [place] [id number] Subjective: * Chief Complaints: Objective: Assessment: Plan: * Billing Information: * Visit Code: * Procedure Codes: * Electronic signature of Raphael Rdoriguez MD on 10/04/2025 at 12:56 PM HAIR PREPARER Sign off status: Pending * Provider: Deepika ABDI MD, Rk.Kael.C.P, F.A.S.N. Date: Generated for Printing/Faxing/eTransmitting on: 12/04/2024 12:56 PM HAIR PREPARER
--- OUTSIDE RECORDS SUMMARY | 2025-09-23 08:15 | XMS_ITS ---
Author Organization [facility] Address [address] [facility] [address] [facility] [address] [place] [address] Care Team Providers Care Manufacturing Accountant Name Role Phone Michael Damian Unavailable [phone] Social History Sex Assigned At : Social History Observation Description Sex Assigned At Female Encounters Encounter Location Date Provider Diagnosis [facility] [address] [place] [address] 09/23/2025 Damian Rodriguez Chronic kidney disea se, stage [...] unspecified E03.9 ; Primary hyperparathyroidism E21.0 ; CAD (coronary artery disease) I25.10 and Personal history of malignant neoplasm of ovary Z85.43 Assessments Encounter Date Diagnosis (ICD Code) Assessment Notes Treatment Notes Treatment Clinical Notes Section Notes 09/23/2025 Chronic kidney disea se, stage 3a (ICD-10 - N18.31) 09/23/2025 Essential hypertensi on (ICD-10 - I10) 09/23/2025 Type 2 diabetes mellitus with hyperglycemia (ICD-10 - E11.65) 09/23/2025 Renal osteodystrophy (ICD-10 - N25.0) 09/23/2025 Secondary hyperparathyroidism, not elsewhere classified (ICD-10 - E21.1) 09/23/2025 Vitamin D deficiency , unspecified (ICD-10 - E55.9) 09/23/2025 Viral upper respirat ory tract infection (ICD-10 - J06.9) 09/23/2025 Hyperlipidemia, unspecified (ICD-10 - E78.5) 09/23/2025 Metabolic disorder, unspecified (ICD-10 - E88.9) 09/23/2025 Unspecified abdomina l hernia without obstruction or gangrene (ICD-10 - K46.9) 09/23/2025 Hypothyroidism, unspecified (ICD-10 - E03.9) 09/23/2025 Primary hyperparathyroidism (ICD-10 - E21.0) 09/23/2025 CAD (coronary artery disease) (ICD-10 - I25.10) 09/23/2025 Personal history of malignant neoplasm of ovary (ICD-10 - Z85.43) Plan Of Treatment Next Appt Details Provider Name:Damian Michael , 10/18/2025 02:30:00 PM, [address], [address], Progress Notes * KAYLA, CRISSYDOB:1955 (70 yo F)Acc No.[id number]:09/23/2025 Progress Notes Patient: CRISSY RUIZ Provider: Deepika ABDI MD, F.A.C.P, F.A.S.N. :1955 A ge:70 Y S ex:Female Date:09/23/2025 Address:[facility] [address] [id number] Subjective: * Chief Complaints: Objective: Assessment: [...] P rimary hyperparathyroidism - E21.0 1 3. C AD (coronary artery disease) - I25.10 14. P ersonal history of malignant neoplasm of ovary - Z85.43 Plan: * Billing Information: * Visit Code: * Procedure Codes: * Electronic signature of Raphael Rodriguez MD on 10/04/2025 at 12:55 PM FILM RENTAL CLERK Sign off status: Pending * Provider: Deepika ABDI MD, F.A.C.P, F.A.S.N. Date: 11/23/2024 Generated for Printing/Faxing/eTransmitting on: 12/04/2024 12:55 PM FILM RENTAL CLERK
--- NOTE | ~2025-10-04 | DEXA_ITS ---
Bone Density Report Name: CRISSY GARZA Age: 70 Sex: Female Ethnicity: White Date of : 1955 Indication: postmenopausal; screening for osteoporosis; height loss; cancer; hysterectomy; Referring Provider: MILLIE, MARIA A Study: Bone densitometry was performed. Exam Date: October 04, 2025 Accession number: [id number] Bone Density: Region BMD T-score Z-score Classification AP Spine(L1-L4) 0.952 -0.9 1.2 Normal Femoral Neck (Left) 0.496 -3.2 -1.4 Osteoporosis Total Hip (Left) 0.728 -1.8 -0.3 Osteopenia Femoral Neck (Right) 0.509 -3.1 -1.3 Osteoporosis Total Hip (Right) 0.746 -1.6 -0.1 Osteopenia Total Hip Mean 0.737 -1.7 -0.2 Osteopenia World Health Organization criteria for BMD impression classify patients as: Normal (T-score at or above -1.0), Osteopenia (T-score between -1.0 and -2.5), or Osteoporosis (T-score at or below -2.5). 10-year Fracture Risk: FRAX not reported because: Some T-score for Spine Total or Hip Total or Femoral Neck at or below -2.5 Treated for osteoporosis Clinical Information Provided by Patient: Is being treated for osteoporosis Has used the following medications: Prolia (i.e. denosumab) Has the following medical conditions: Cancer, Hysterectomy Patient maximum height was 66 Menopause Age: 47 No regular weight bearing exercise Drinks caffeinated beverages Onset of menses at age 12 Number of children 0 Impression: The patient has osteoporosis, based on the Left Femoral Neck T-score. Discussion: It is important to ask patients whether they are taking their medications and to encourage continued and appropriate compliance with their osteoporosis therapies to reduce fracture risk. It is also important to review their risk factors and encourage appropriate calcium and vitamin D intakes, exercise, fall prevention and other lifestyle measures. Follow-Up: Consider a repeat BMD and Vertebral Fracture Assessment (VFA) exam in 2 years or sooner if medically necessary, to reassess this patient's status. Reported by: SOBEIDA on 10/04/2025 1:33:00 PM. Reviewed, dictated and finalized at location A.
--- OUTSIDE RECORDS SUMMARY | 2025-10-04 12:54 | XMS_ITS | Encounter Summary ---
Author Organization [facility] Address [address] [place] [address] [place] [address] Care Team Providers Care Community Planner Name Role Phone Mar Reynolds MD Primary Care Provider Reason for Visit * Reason Onset Date Comments Appointment 08/17/2019 Encounter Details Date Type Department Care Team (Late st Contact Info) Description 08/17/2019 Telephone [facility] [address] [place], [place] [phone] Lisa Cancino Appointment Social History Tobacco Use [...] on file Legal Sex Female 9:49 AM [employer] Gender Identity Not on file Sexual Orientation [...] on filedocumented in this encounter Care Teams Community Planner Relationship Specialty Start Date End Date Mar Reynolds MD [address] [facility] [address] [place] [id number] PCP - General Internal Medicine 12/27/18 documented as of this encounter
--- OUTSIDE RECORDS SUMMARY | 2025-10-04 12:55 | XMS_ITS | Data Portability ---
Demographics Address [address] [place] [address] Home Phone Mobile Phone Preferred Language en Marital Status Episcopal Affiliation Unknown Race White Ethnic Group Not or Lati no Author Organization [place] [facility], Main Office Address [address] [place] [address] Care Team Providers Care Assistant Portfolio Manager Name Role Phone MARIA A REYNOLDS Primary Care Provider MARIA A REYNOLDS Referring Provider AMANDA HURTADO Cloth Colors Examiner AASHISH BOND Crossing Guard MIKI VILLALBA Switch Tender DORCAS BARR Water Taxi Captain Assessment Encounter Date Assessment Date Assessment LastModified by Organization Details LastModified Time 04/02/2025 04/02/2025 69-year-old patient presents today with left shoulder pain and weakness after a fall 2 weeks ago. She states that she fell directly onto the left shoulder and landed on a box. She felt immediate pain and was not able to lift her arm. The pain shoots up into her neck and down her arm. She denies any bruising around the shoulder or feeling a pop. She x-rays taken and she was told she did not have a fracture. Since then she has been using Tylenol and lidocaine patches, which have not helped. She denies any issues with moving the arm before this injury. She rates her pain today 8/10. Review of systems per patient questionnaire Imaging: X-rays reviewed of shoulder and clavicle show no acute bony abnormality or fracture. physical exam: Patient states that the majority of her pain is along the clavicle and down the biceps. Pain with palpitation along the clavicle and anterior shoulder. Active range of motion 80 / 20/back pocket. Passive elevation to 120. Unable to keep arm elevated. Sensation intact. No bruising. Positive spurlings. we discussed that she likely tore her rotator cuff in her fall. Typically with acute loss of function we would order an MRI, she states she is claustrophobic and can not handle a closed MRI. We discussed taking a sedative medication beforehand and she does not think this would work. She would need a open MRI. She states she has a scheduled surgery coming up for hernia repair and does not want shoulder surgery at this time. She would like to try more conservative measures 1st. We will order physical therapy. She can continue with tylenol as needed. We will see her back in a few weeks and see how her function is. She is in agreement with this plan. Not available 04/02/2025 15:36:46 05/13/2025 05/13/2025 69-year-old patient presents today for follow up of left shoulder pain and weakness after a fall directly onto the left shoulder. She felt immediate pain and was not able to lift her arm. She has been attending physical therapy, which she states has helped with function. She has been using Tylenol and lidocaine patches, which have helped. She denies any issues with moving the arm before this injury. She rates her pain today 8/10. She is scheduled for hernia surgery next week and will not be able to continue PT. physical exam: Pain with palpitation of anterior shoulder, down the biceps. Active range of motion 110/30/back pocket. Passive elevation to 120. Sensation intact. We discussed that she likely tore her rotator cuff in her fall. Typically with acute loss of function we would order an MRI, she states she is claustrophobic and can not handle a closed MRI. We discussed taking a sedative medication beforehand and she does not think this would work. She would need a open MRI. We will see her back after she has recovered from her hernia repair and order an MRI at that time. In the meantime for pain we discussed risks and benefits of a cortisone injection to help with pain. This was given without issue. She will call when she is ready to return. Not available 05/13/2025 09:50:28 06/25/2025 06/25/2025 This note is dictated and transcribed by [employer]. Shooting Gallery Operator variances may occur. Despite proofreading, typographical errors may occur. Occasional wrong-word or 'aywge-e-erpa' substitutions may have occurred due to the inherent limitations of voice recording. Read the chart carefully and recognize, using context, where substitutions have occurred. Not available 06/25/2025 14:10:19 06/27/2025 06/27/2025 02/17/2023: A1C 7.7 Urine alb 20.3 05/20/2023: Dr Michael BROWN K 3.3, ALP 148, Gluc 124 WBC 12.4 A1C 7.5 TSH <0.015L 08/29/2023: A1C 8.4 Gluc 152, ALP 159 TSH <0.015 HCT 48.4 10/25/2023: TSH 0.296 A1C 7.4 Gluc 130, BUN 21, GFR 51 11/21/2023: COIVD 19 Neg 03/19/2024: A1C 8.4 TSH 0.345L Gluc 149, Glob 2.4 07/17/2024: A1C 7.9 WBC 11.3 TSH 0.247 Urine micro alb 23.2 K 3.1L, gluc 108, BUN 21, Cr 1.23, GFR 43, TP 6.1L, Glob 2.1 09/13/2024: TSH 0.150L TG 180 K 2.9L Gluc 276, AST/ALT 38/36 HCT 45.8 A1C 7.4 09/20/2024: K 3.6 01/15/2025: A1C 7.7 TSH 0.24L, FT4 1.4 WBC 12.6H, HCT 47.1 Gluc 167, Cr 1.09, GFR 55, K 2.9 Urine alb 50 06/13/2025: A1C 7.7 Gluc 120, Cr 1.12, GFR 53, K 2.8 WBC 11.7, HCT 46.3 45 minutes spent with the patient from 8.40am till 9.25am, reviewed all her labs and provided referrals and labs to be done Case discussed with Dr Michael BROWN and her K and jardiance sent as he did agree [email or web address] Not available 06/27/2025 14:02:35 09/24/2025 09/24/2025 This note is dictated and transcribed by [employer]. Shooting Gallery Operator variances may occur. Despite proofreading, typographical errors may occur. Occasional wrong-word or 'gtaei-d-aiig' substitutions may have occurred due to the inherent limitations of voice recording. Read the chart carefully and recognize, using context, where substitutions have occurred. Not available 09/24/2025 09:50:42 Plan of Treatment Reminders Order Date Submit Date Provider Last Modified By Organization Details Last Modified Time Details Appointments Any 15 2024 09:15A M Maria A vasquez MD Not available Not available Not available Establish ed Patient 10 2025 10:00A M Aashish Bond DPM Not available Not available Not available Lab lipid panel, serum [address] (Lab), [address] [place], [address], 06/27/2025 10:37:52 CMP, serum or plasma [address] (Lab), [address] [place], [address], 06/27/2025 10:37:53 CBC w/ auto diff [address] (Lab), [address] [place], [address], 06/27/2025 10:37:53 TSH + free T4, serum [address] (Lab), [address] [place], [address], 06/27/2025 10:37:53 vitamin D, 25-hydrox y, total, serum [address] (Lab), [address] [place], [address], 06/27/2025 10:37:53 microalbu min, urine [address] (Lab), [address] [place], [address], 06/27/2025 10:37:52 glycohemo globin, total, blood [address] (Lab), [address] [place], [address], 06/27/2025 10:37:52 potassium , serum or plasma [address] (Lab), [address] [place], [address], 07/08/2025 11:57:41 Referral orthopedi c surgeon referral - Please call patient to schedule an appointme nt. Thank you. 2024 025 LALITHA Milligan MD, [address] [facility], [address], [place], [address], 09/29/2025 04:05:04 nephrolog ist referral - Please call patient to schedule an appointme nt. Thank you. 2024 025 LALITHA Hurtado MD (Nephrology, [address], [address], [place], [address], 09/29/2025 04:05:03 cardiolog ist referral - Please call patient to schedule an appointme nt. Thank you. 2024 025 LALITHA Ross MD, [address] [facility], [address], [place], [address], 09/29/2025 04:05:04 physical therapist referral - Please schedule pt for L shoulder. Thanks [address] [facility] [address], [address] [facility], [place], [address], 04/22/2025 15:20:25 Procedures injection /aspirati on joint/bur sa (PROC) 2024 025 [email or web address] 1 In-Office Order, Internal Use Only DO Not Attach Compendium DO Not Attach Compendium, Do Not Delete/merge, [id number] 05/13/2025 09:46:37 Surgeries None recorded. Imaging XR, toe(s), 2 or more view 2024 025 [email or web address] [facility] ([facility] Sched[facility]), [address] [place], [address], 10/01/2025 08:14:24 MAMMO, screening , digital, bilateral 2024 025 [email or web address] [facility], [address] [place], [address], 06/27/2025 11:20:01 US, thyroid - Please call patient to schedule. 2024 025 [email or web address] [facility], [address] [facility], [place], [address], 07/31/2025 16:15:29 XR, toe(s), 2 or more view 2024 025 [email or web address] [facility] ([facility] Call Scheduling), [address] [place], [address], 08/20/2025 08:20:54 XR, clavicle 2024 025 [email or web address] [facility], [address] [place] [address], [address], [place], [address], 04/03/2025 09:06:25 Medication Orders Jardiance 10 mg tablet 2024 025 [facility] [address] [place], [place], [id number], 06/27/2025 10:36:58 Unithroid 25 mcg tablet 2024 025 [facility] [address] [place], [place], [id number], 06/27/2025 10:36:59 potassium chloride ER 20 mEq tablet,ex tended release 2024 025 [facility], [address] [place], [place], [id number], 06/27/2025 10:36:57 bupivacai ne HCl 0.5 % (5 mg/mL) injection solution [address] [facility]46, [address] [place], [place], [id number], 06/27/2025 10:11:18 Kenalog 10 mg/mL suspensio n for injection [address] [facility]96237, [address] [place], [place], [id number], 06/27/2025 10:11:40 Patient Targets Encounter Date Encounter Id Patient Goals Patient Target Last Modified By Organization Details Last Modified Time 06/27/2025 [id number] reviewed , diet, exercise, home safety, bladder control , alcohol/ tobacco , vaccines Not available 06/27/2025 10:42:44 Patient Instructions Encounter Date Encounter Id Patient Instructions Last Modified By Organization Details Last Modified Time 06/27/2025 [id number] dementia rating scale-2* [email or web address] Not available 08/28/2025 18:09:28 multi-dimensiona l health assessment questionnaire* [email or web address] Not available 08/28/2025 18:09:38 care plan* Not available 06/14 10:42:34 advance directiv es: care instructions [email or web address] Not available 06/27/2025 10:36:51 advance care planning: care instructions [email or web address] Not available 06/27/2025 10:36:50 [place] Advance Directives [email or web address] Not available 06/27/2025 10:36:50 diabetic eye exam* [email or web address] Not availa ble 06/27/2025 10:37:54 Personalized Hea lt Plan and Screening Recommendations Advance Directives - Do you have one? No Advance Directives - Do we have your advance directive on file in your health record? No, please bring in a copy at your earliest convenience Primary Prevention/Interven tion (prevents or decreases the chance of common diseases from occurring) Smoking Risk: Non Smoker Alcohol Misuse Screening: Negative Weight: Overweight Physical activity: Need more exercise/physical activity minimum of 10-20 minutes of activity that causes mild breathlessness/day Nutrition: Average Fall Risk (screened today): High Vaccines Pneumococcal: Recommended today Influenza: Recommended today Chronic Disease Risks Stroke: Intermediate Risk Active diagnosis, Continue current treatment plan Heart Attack: Intermediate Risk Active diagnosis, Continue current treatment plan Clogging of the Arteries: Active diagnosis, Continue current treatment plan Diabetes: High Risk Active diagnosis, Continue current treatment plan Secondary Prevention/Interven tion (detects treatable diseases before they may cause symptoms, disability, or ) Breast Cancer Screening with mammogram: Recommended today Cervical/Uterine/Ov delbert Cancer Screening: Recommended today Osteoporosis Screening: Recommended today Date Screening Last Performed: Colon Cancer Screening: No screening necessary Date Screening Last Performed: Eye Disease Screening: Recommended today Dementia Risk: Low Depression Screening: Negative Active diagnosis, Continue current treatment plan Not available 06/27/2025 10:43:30 reviewed , diet, exercise, home safety, bladder control , alcohol/ tobacco , vaccines . patient needs smoke detector provided resource Not available 06/27/2025 10:44:03 Reason for Referral Physical Therapist Referral for Pain of left shoulder region L shoulder pain Please schedule pt for L shoulder. Thanks Referring Physician: Sujatha Klein, Orthopedic Surgery, Encounter Date: 04/02/2025 Cloth Colors Examiner Referral for Ch ronic kidney disease Please call patient to schedule an appointment. Thank you. Referring Physician: Maria A Reynolds, Internal Medicine, Encounter Date: 06/27/2025 Orthopedic Surgeon Referral for Pain of left shoulder joint Please call patient to schedule an appointment. Thank you. Referring Physician: Maria A Reynolds, Internal Medicine, Encounter Date: 06/27/2025 Paymaster Of Purses Referral for Co ronary arteriosclerosis Please call patient to schedule an appointment. Thank you. Referring Physician: Maria A Reynolds, Internal Medicine, Encounter Date: 06/27/2025 Results Created Date Observation Date Name Description Value Unit Range Abnormal Flag Note LastModifiedBy Organization Detail LastModifiedTime 03/06/20 25 03/05/2025 imagi ng/di agnos tic resul t No observ ation record ed. [facility] [address], [place], [address], 03/06/2025 10:23:38 03/19/20 25 03/19/2025 imagi ng/di agnos tic resul t No observ ation record ed. [place] [id number] [facility] [address], [place], [address], 03/19/2025 11:57:05 04/02/20 XR, clavi ken No observ ation record ed. [email or web address] [facility] [address], [address], [place], [address], 04/02/2025 15:12:41 04/11/20 25 04/11/2025 imagi ng/di agnos tic resul t No observ ation record ed. [facility] [address], [place], [address], 04/11/2025 18:38:59 06/25/20 25 06/25/2025 imagi ng/di agnos tic resul t No observ ation record ed. [place] [id number] [facility] [address], [place], [address], 06/25/2025 13:26:54 07/25/20 25 07/25/2025 MAMMO , scree ankur, digit al, bilat eral No observ ation record ed. [facility] [address] [facility], [place], [address], 07/25/2025 18:28:37 08/03/2007/25/2025 US, thyro id No observ ation record ed. [facility] [address], [place], [address], 08/03/2025 11:07:02 09/18/20 25 09/06/2025 imagi ng/di agnos tic resul t No observ ation record ed. [facility] [address], [place], [address], 09/18/2025 09:48:05 09/18/2009/06/2025 imagi ng/di agnos tic resul t No observ ation record ed. [facility] [address], [place], [address], 09/18/2025 15:34:26 10/03/20 25 10/03/2025 imagi ng/di agnos tic resul t No observ ation record ed. [facility] [address], [place], [address], 10/03/2025 13:03:20 10/03/20 25 09/13/2025 imagi ng/di agnos tic resul t No observ ation record ed. [facility] [address], [place], [address], 10/03/2025 14:12:19 Result Notes None recorded. Problems Name Problem SNOMED Code Status Onset Date Resolution Date Notes Provider Name and Address Organization Details Recorded Time Acute bronchiti s 88862261 Active Not Available [facility] 3 00:51:38 Rectal hemorrhag e 06640934 Active Not Available [facility] 3 00:51:39 Chronic obstructi ve pulmonary disease 30781819 Active Not Available [facility] 3 00:51:39 Constipat ion 56591739 Active Not Available [facility] 3 00:51:39 Subclavia n steal syndrome 86448362 Active Not Available [facility] 3 00:51:39 Acute sinusitis 65018013 Active Not Available [facility] 3 00:51:39 Urinary incontine nce 052361521 Active Not Available [facility] 3 00:51:39 Acute exacerbat ion of chronic obstructi ve pulmonary disease 187835762 Active Not Available [facility] 3 00:51:39 Disorder of upper respirato ry system 524175423 Active [facility] 3 00:51:39 Neuropath y due to diabetes mellitus 286687243 Active Not Available [facility] 3 00:51:39 Gastroeso phageal reflux disease 553916110 Active Not Available [facility] 3 00:51:39 Syncope and collapse 322972579 Active Not Available [facility] 3 00:51:39 Bronchiti s 35834610 Active Not Available [facility] 3 00:51:39 Hyperthyr oidism 20970383 Active Not Available [facility] 3 00:51:39 Vitamin D deficienc y 18448694 Active Not Available [facility] 3 00:51:39 Depressiv e disorder 76488633 Active Not Available [facility] 3 00:51:39 Sinusitis 50581469 Active Not Available [facility] 3 00:51:39 Goiter 8812975 Active Not Available [facility] 3 00:51:39 Chronic pain syndrome 707178642 Active Not Available [facility] 3 00:51:39 Abnormal voice 18009776 Active Not Available [facility] 3 00:51:39 Disorder of vitamin D 477725156 Active Not Available [facility] 3 00:51:39 Osteoarth ritis 280529669 Active Not Available [facility] 3 00:51:39 Pharyngit is 734690738 Active Not Available [facility] 3 00:51:39 Obesity 866518766 Active Not Available [facility] 3 00:51:39 Onychomyc osis 050126016 Active Not Available [facility] 3 00:51:39 Swelling of upper arm 658481665 Active Not Available [facility] 3 00:51:40 Coronary arteriosc lerosis 17217862 Active s/p stent 09/28 Not Available [facility] 3 00:51:40 Upper respirato ry infection 50328872 Active Not Available [facility] 3 00:51:40 Essential hypertens ion 81443469 Active Not Available [facility] 3 00:51:40 Allergic rhinitis 78888753 Active Not Available [facility] 3 00:51:40 Closed traumatic dislocati on of joint of finger 43742738 Active Not Available [facility] 3 00:51:40 Obstructi ve sleep apnea syndrome 20246472 Active Not Available [facility] 3 00:51:40 Neck pain 37800304 Active Not Available [facility] 3 00:51:40 Tinea corporis 14847386 Active Not Available [facility] 3 00:51:40 Pain in limb 77543926 Active Not Available [facility] 3 00:51:40 Body mass index 30+ - obesity 214528697 Active 2016 Not Available [facility] 3 00:51:39 Moderate chronic obstructi ve pulmonary disease 767155929 Active 2016 Not Available [facility] 3 00:51:39 Former heavy tobacco smoker 13290209593 4100 Active 2016 Not Available [facility] 3 00:51:39 Fungal respirato ry infection 776997591 Active 2017 Not Available [facility] 3 00:51:39 Dyspnea on exertion 93522783 Active 2017 Not Available [facility] 3 00:51:40 Asthma-ch ronic obstructi ve pulmonary disease overlap syndrome 97355664803 984410 Active 2017 Not Available [facility] 3 00:51:38 Foot pain 95666790 Active 2018 Not Available [facility] 3 00:51:40 Foot pain 61545785 Completed 201809/25/2020 Not Available [facility] 3 02:56:01 Plantar fasciitis of right foot 32876995058 051430 Active 2019 Not Available [facility] 3 00:51:39 Injury of toe 741010807 Completed 201909/25/2020 Not Available [facility] 3 02:55:53 Injury of toe 107768313 Active 2019 Not Available [facility] 3 00:51:39 Avulsion of toenail 997115512 Active 2019 Not Available [facility] 3 00:51:39 Diabetic periphera l neuropath y 529255729 Active 2019 Not Available [facility] 3 00:51:39 Ganglion cyst 017754781 Active 2019 Not Available [facility] 3 00:51:40 Diabetes mellitus 28072388 Active 2019 Not Available [facility] 3 00:51:40 Dystrophi a unguium 44251623 Active 2020 Not Available [facility] 3 00:51:40 Selective immunoglo bulin G deficienc y 279766003 Active 2020 Not Available [facility] 3 00:51:39 Ex-smoker 0518210 Active 2020 Not Available [facility] 3 00:51:40 Pain of left knee joint 12349052810 4107 Active 2021 Not Available [facility] 3 00:51:40 Pain in left foot 95928426961 9107 Active 2021 Not Available [facility] 3 00:51:39 Dyslipide angela 928236875 Active 2021 Not Available [facility] 3 00:51:39 Hypothyro idism 11464087 Active 2021 Not Available [facility] 3 00:51:39 Well controlle d type 2 diabetes mellitus 869025686 Active 2021 Not Available [facility] 3 00:51:40 Cramp in lower limb 540477497 Active 2021 Not Available [facility] 3 00:51:40 Uncontrol led type 2 diabetes mellitus 838670331 Active 2021 Not Available [facility] 3 00:51:40 Chronic cough 04864390 Active 2021 Not Available [facility] 3 00:51:40 Foot pain 17545254 Active 2021 Not Available [facility] 3 00:51:40 Pain of left hip joint 74188023938 9100 Active 2021 Not Available [facility] 3 00:51:39 Pain in lower limb 62976777 Active 2021 Not Available [facility] 3 00:51:38 Acute upper respirato ry infection 61118248 Active 2021 [facility] Available [facility] 3 00:51:40 Bacterial infection caused by Pseudomon as 56436296 Active 2021 Not Available [facility] 3 00:51:40 Malignant neoplasm of ovary 111952014 Active 2021 Not Available [facility] 3 00:51:39 Urinary tract infectiou s disease 10143923 Active 2021 Not Available [facility] 3 00:51:40 Dry skin 81325446 Active 2021 Not Available [facility] 3 00:51:39 Hyperglyc emia 31696610 Active 2021 Not Available [facility] 3 00:51:40 Bacterial infection caused by Klebsiell a pneumonia e 308844834 Active 2021 Not Available [facility] 3 00:51:39 Multiple nodules of lung 072087733 Active 2021 Not Available [facility] 3 00:51:40 COVID-19 846744302 Active 2021 Not Available [facility] 3 00:51:40 Neuropath y 108265191 Active 2022 Not Available [facility] 3 00:51:39 Pruritic rash 19457214 Active 2022 Not Available [facility] 3 00:51:40 Type 2 diabetes mellitus without complicat ion 520981755 Active 2022 Not Available [facility] 3 00:51:39 Hyperlipi demia 99353496 Active 2022 Not Available [facility] 3 00:51:40 Leukocyto sis 663214336 Active 2022 Maria A schneider MD [address] [facility], [address], [place], [address] , [employer] [facility] 5 10:05:32 Steatotic liver disease 875472084 Active 2022 Not Available [facility] 3 00:51:39 Chronic kidney disease 045272001 Active 2022 Not Available [facility] 3 00:51:40 Gout 27567051 Active 2022 Not Available [facility] 3 00:51:40 Gastroeso phageal reflux disease without esophagit is 182621681 Active 2022 Not Available [facility] 3 00:51:39 Cyst of ovary 37687737 Active 2022 Not Available [facility] 3 00:51:40 Hypokalem ia 29353596 Active 2022 Maria A schneider MD [address] [facility], [address], [place], [address] , [employer] [facility] 5 10:16:58 Cough 59648371 Active 2022 JOJO Cabrera null, [employer] [facility] 5 17:30:43 Infection caused by Pseudomon as aeruginos a 79647606 Active 2022 Not Available [facility] 3 00:51:39 Osteoporo sis 36850377 Active 2022 Not Available [facility] 3 00:51:40 Liver enzymes level above reference range 832555087 Active 2022 Not Available [facility] 3 00:51:40 Erythrocy tosis 691803803 Active 2022 Not Available [facility] 3 00:51:39 Osteoarth ritis of left knee joint 69784298715 9109 Active 2022 Not Available [facility] 3 00:51:39 Immunoglo bulin G subclass deficienc y [id number] Active 2022 Not Available [facility] 3 00:51:39 Pneumonia caused by Streptoco ccus [id number] Active 2022 Not Available [facility] 3 00:51:39 Acute urinary tract infection [id number] Active 2023 JOJO Cabrera null, [place] - [facility] 5 17:31:16 Skin lesion 85415306 Active 2023 Maria A schneider MD [address], [address], [place], [address] , [employer] [facility] 4 10:10:19 Skin tag 394070589 Active 2023 Maria A schneider MD [address], [address], [place], [address] , [facility] 4 10:47:48 Plantar fasciitis of left foot [id number] 985332 Active 2023 Aashish Bond DPM [address], [address], [place], [address] , [employer] [facility] 4 09:43:02 Pain of left heel [id number] 02791 Active 2023 Aashish Bond DPM [address], [address], [place], [address] , [facility] 4 10:09:33 Knee pain Active 2023 Aashish Bond DPM [address], [place], [address] , [facility] 4 10:15:40 Metatarsa lgia of left foot [id number] 9106 Active 2023 Aashish Bond DPM [address], [place], [address] , [facility] 4 14:58:03 Pain of left shoulder joint [id number] 079747 Active 2024 Maria A schneider MD [address], [address], [place], [address] , [facility] 5 09:52:45 Pain of right shoulder region Active 2024 JOJO Cortés, [place] [facility] 5 13:59:32 Pain of left shoulder region Active 2024 JOJO Cortés, [place] [facility] 5 14:04:10 Productiv e cough 72130990 Active 2024 JOJO Cabrera, [place] [facility] 5 14:51:14 Hypoglyce angela due to type 2 diabetes mellitus 44419598720 9103 Active 2024 JOJO Cabrera, [place] [facility] 5 18:23:42 Hernia of anterior abdominal wall 194769332 Active 2024 Maria A schneider MD [address], [address], [place], [address] , [facility] 5 10:34:00 Pain of toe of right foot [id number] 9101 Active 2024 Aashish Bond DPM [address], [place], [address] , [facility] 5 10:55:53 Ingrowing toenail 644478555 Active 2024 Aashish Bond DPM [address], [address], [place], [address] , [employer] 09:50:35 Notes:Medical History: Depre ssion Rhinitis IgE 29 IU/mL Hypogammaglobulinemia (IgG2) Obesity with mild OSAHS, AHI = 11, 07/28/16, on CPAP c/o Provider Plus Hypothyroidism Hyperlipidemia Hypertension CAD s/p MS Alpha-1 antitrypsin PiMM 135 mg% Mod COPD T2DM with neuropathy DOLORES PLMD Iron deficiency Vit E deficiency Vit D deficiency Gout Osteoarthritis Tinea corporis Onychomycosis Medical History: Bilateral cataract extraction with IOL 2012 One coronary artery stent placement 2014 Some problems listed in Document: #[id number] could not be added to this patient's chart. Please review this document and add these problems to the patient's chart manually as needed. Problem Notes None recorded. Procedures Surgical History Date Name Laterality Status Provider Name and Address Organization Details Recorded Time 09/24/20 25 Nail Debridement completed Aashish Bond DPM [address], [address], [place], [address], [employer] 09/24/2025 10:04:48 06/27/20 25 Medicare Wellness CPT Code, subsequent completed Milka Fuentes [place] 06/26/2025 08:09:53 05/13/20 25 Ortho - Cortisone Injection completed Sujatha Klein NP [address], [address], [place], [address], [employer] 05/13/2025 09:50:39 05/29/20 24 Plantar Fascia Injection Left Foot completed Aashish Bond DPM [address], [address], [place], [address], [employer] 05/29/2024 09:45:35 04/17/20 24 Medicare Wellness CPT Code, subsequent completed Jez Renee LPN [place] 04/13/2024 09:51:17 04/17/20 24 Advanced Care Planning completed Jez Renee LPN [place] 04/17/2024 10:30:52 02/28/20 24 Nail Debridement completed Aashish Bond DPM [address], [place], [address], [employer] [facility] [employer] 02/28/2024 15:27:21 10/25/20 23 Nail Debridement completed Aashish Bond DPM [address], [place], [address], [facility] [employer] [facility] [employer] 10/26/2023 11:48:42 06/28/20 23 Nail Debridement completed Aashish Bond DPM [address], [place], [address], [employer] [facility] [employer] 07/14/2023 10:53:40 03/03/20 23 Nail Debridement completed Aashish Bond DPM [address], [place], [address], [employer] 03/03/2023 10:48:06 06/01/20 22 Hysterectomy completed Not Available [facility] 01/12/2023 02:46:50 08/25/20 21 Most Recent Bone Density completed Not Available [facility] 01/12/2023 02:46:43 08/31/20 19 Date of Last Colonoscopy completed Not Available [facility] 01/12/2023 02:46:43 08/31/20 19 Colonoscopy with biopsy completed Not Available [facility] 01/12/2023 02:46:50 08/29/20 18 [facility]23 02:46:50 Stent Placement completed Not Available [facility] 01/12/2023 02:46:50 Foot Surgery completed Not Available [facility] 01/12/2023 02:46:50 Knee [facility] 01/12/2023 02:46:50 Cataract Surgery completed [facility] 01/12/2023 02:46:50 fallopian tube excision completed Not Available [facility] 01/12/2023 02:46:50 removal of implantable venous access port completed JOJO Cabrera [employer] [facility] [employer] 06/02/2023 09:53:18 Imaging Results None recorded. Procedure Notes None recorded. Medical Equipment None Reported. Allergies Allergen ID Allergen Name Allergen Category Reaction Reaction Severity Criticality Documentation Date Start Date Code Code System Note Provider Name and Address Organization Details Recorded Time 5524 Substance with sulfonami de structure and antibacte rial mechanism of action (substanc e) medicatio n Not available Not available Not available 01/12/2023 41338 [id number] SNOMED Not Available [facility] 3 03:14:06 5525 Levaquin medicatio n hives moderate Not available 01/12/2023 77662 2 RxNorm pt state s that she gets littl e bumps all over her body looks like she has chick en pox Not Available [facility] 3 03:14:06 5526 doxycycli ne Not available Not available Not available Not available 01/12/2023 3640 RxNorm Not Available [facility] 3 03:14:06 Medications Name Sig Start Date Stop Date Status Note LastModified by Organization Details LastModified Time Prescript ion - Renewal active Not Available Not Available Not Available sure comfort pen needles 32gx5/32 32g x 4 mm misc active Not Available Not Available Not Available cyclobenz aprine 10 mg tablet active Not Available Not Available No t Available amoxicill in 500 mg capsule Take 1 capsule 3 times a day by oral route for 7 days. 07/24 completed Not Available Not Available Not Available furosemid e 40 mg tablet 1 po bid 04/05 completed Not Available Not Available Not Available metolazon e 2.5 mg tablet TAKE 1 TABLET BY MOUTH EVERY OTHER DAY 04/08 completed Not Available Not Available Not Available fluconazo le 100 mg tablet 03/31 completed Not Available Not Available Not Available clotrimaz ole 10 mg benjamin Take 1 tablet 5 times a day by oral route. 07/09 completed Not Available Not Available Not Available buspirone 5 mg tablet prn 07/09 completed Not Available Not Available Not Available metformin 500 mg tablet TAKE ONE TABLET DAILY 07/09 completed Not Available Not Available Not Available fluticaso ne propionat e 50 mcg/actua tion blister powder for inhalatio n Inhale 2 puffs by inhalati on route at bedtime. 2019 active Not Available Not Available Not Avai lable albuterol sulfate 0.63 mg/3 mL solution for nebulizat ion Inhale 0.63 mg 3 times a day by inhalati on route. 02/27 completed Not Available Not Available Not Available nystatin 100,000 unit/mL oral suspensio n Take 5 mL 4 times a day by oral route as directed for 10 days. 03/31 completed Not Available Not Available Not Available potassium chloride ER 10 mEq capsule,e xtended release Take 4 capsules every day by oral route. 03/31 completed Not Available Not Available Not Available prednison e 10 mg tablet TAKE 3 TABLETS BY MOUTH EVERY MORNING FOR 5 DAYS. 03/31 completed Not Available Not Available Not Available doxycycli ne hyclate 100 mg capsule 09/20 completed Not Available Not Available Not Available cefuroxim e axetil 250 mg tablet TAKE 1 TABLET BY MOUTH EVERY 12 HOURS FOR 10 DAYS 03/21 completed Not Available Not Available Not Available ipratropi um 0.5 mg-albute rol 3 mg (2.5 mg base)/3 mL nebulizat ion soln USE 3 ML VIA NEBULIZE R FOUR TIMES DAILY 04/17 completed Not Available Not Available Not Available torsemide 20 mg tablet Take 1 tablet every day by oral route. 11/26 completed Not Available Not Available Not Available bumetanid e 2 mg tablet 1 bid 07/09 completed Not Available Not Available Not Available erythromy ibis 500 mg tablet Take 1 tablet every other day by oral route as directed . 06/27 completed 3 x weekly Not Available Not Available Not Available albuterol sulfate 2.5 mg/3 mL (0.083 %) solution for nebulizat ion Inhale 3 mL 4 times a day by nebuliza tion route as directed for 30 days. 09/07 completed Not Available Not Available Not Available ciproflox acin 750 mg tablet TAKE 1 TABLET BY MOUTH TWICE DAILY FOR 10 DAYS DIRECTED 09/08 completed Not Available Not Available Not Available ammonium lactate 12 % lotion APPLY TOPICALL Y TO THE AFFECTED AREA EVERY DAY NEEDED active Not Available Not Available No t Available potassium chloride ER 8 mEq capsule,e xtended release active Not Available Not Available Not Available propylthi ouracil 50 mg tablet TAKE ONE TABLET BY MOUTH TWICE DAILY 07/09 completed Not Available Not Available Not Available cetirizin e 10 mg tablet TAKE 1 TABLET BY MOUTH DAILY active Not Available Not Available No t Available clarithro mycin 250 mg tablet 03/19 completed Not Available Not Available Not Available Iron (ferrous sulfate) 325 mg (65 mg iron) tablet Take 1 tablet every day by oral route. 03/20 completed Not Available Not Available Not Available azithromy ibis 250 mg tablet TAKE 2 TABLETS (500 MG) BY ORAL ROUTE ONCE DAILY FOR 1 DAY THEN 1 TABLET (250 MG) BY ORAL ROUTE ONCE DAILY FOR 4 DAYS 04/17 completed Not Available Not Available Not Available aspirin 325 mg tablet Take 1 tablet every day by oral route. 02/02 completed Not Available Not Available Not Available fluconazo le 150 mg tablet TAKE 1 TABLET BY MOUTH 03/21 completed Not Available Not Available Not Available clarithro mycin 500 mg tablet Take 1 tablet every 12 hours by oral route for 7 days. 03/19 completed Not Available Not Available Not Available albuterol sulfate 1.25 mg/3 mL solution for nebulizat ion Inhale 6 mL every 4 hours by inhalati on route. 02/22 completed Not Available Not Available Not Available hydrocodo ne 5 mg-acetam inophen 325 mg tablet twice daily as needed 06/07 completed Not Available Not Available Not Available senna 8.6 mg tablet TAKE 1 TABLET BY MOUTH EVERY MORNING AND 2 TABLET S EVERY EVENING 07/24 completed Not Available Not Available Not Available Claritin 10 mg tablet Take 1 tablet every day by oral route. 09/09 completed Not Available Not Available Not Available ondansetr on HCl 8 mg tablet 06/02 completed Not Available Not Available Not Available fluconazo le 200 mg tablet 12/03 completed Not Available Not Available Not Available bupivacai ne HCl 0.5 % (5 mg/mL) injection solution Take 4 mL by injectio n route. 06/27 completed Not Available Not Available Not Available prednison e 20 mg tablet Take 2 tablets every day by oral route in the morning for 5 days. 06/27 completed Not Available Not Available Not Available methylpre dnisolone 4 mg tablet 11/30 completed Not Available Not Available Not Available Nexium 40 mg capsule,d elayed release Take 1 capsule every day by oral route as needed. 04/20 completed Not Available Not Available Not Available topiramat e 25 mg tablet Take 1 tablet(s ) every day by oral route. 07/09 completed Not Available Not Available Not Available potassium chloride ER 10 mEq tablet,ex tended release TAKE 4 TABLETS BY MOUTH TWICE DAILY 03/31 completed Not Available Not Available Not Available clopidogr el 75 mg tablet Take 1 tablet every day by oral route. 06/02 completed Not Available Not Available Not Available ciproflox acin 250 mg tablet Take 1 tablet twice a day by oral route for 3 days. 03/19 completed Not Available Not Available Not Available prochlorp erazine maleate 10 mg tablet TAKE 1 TABLET BY MOUTH EVERY 6 HOURS NEEDED FOR NAUSEA OR VOMITING active Not Available Not Available No t Available allopurin ol 100 mg tablet Take 1 tablet twice a day by oral route. 06/17 completed Not Available Not Available Not Available ciproflox acin 500 mg tablet TAKE 1 TABLET BY MOUTH EVERY 12 HOURS 02/27 completed Not Available Not Available Not Available sulfameth oxazole 800 mg-trimet hoprim 160 mg tablet 12/28 completed Not Available Not Available Not Available aspirin 81 mg tablet,de layed release Take 1 tablet every day by oral route. 2021 active Not Available Not Available Not Avai lable doxycycli ne monohydra te 100 mg tablet 02/22 completed Not Available Not Available Not Available tramadol 50 mg tablet 1 PO Q 4HR PRN PAIN active Not Available Not Available No t Available acetamino phen 500 mg tablet TAKE 1 TABLET BY MOUTH EVERY 6 HOURS 09/09 completed Not Available Not Available Not Available triamcino lone acetonide 0.1 % topical cream APPLY TO THE AFFECTED AREA TWICE DAILY 02/27 completed Not Available Not Available Not Available spironola ctone 25 mg tablet TAKE 1 TABLET BY MOUTH EVERY DAY active Not Available Not Available No t Available glimepiri de 2 mg tablet TAKE 1 TABLET BY MOUTH TWICE DAILY BEFORE MEALS active Not Available Not Available No t Available lidocaine -prilocai ne 2.5 %-2.5 % topical cream APPLY 1 HOUR PRIOR TO IV ACCESS AND COVER NEEDED 06/02 completed Not Available Not Available Not Available levothyro xine 25 mcg tablet Take 1 tablet every day by oral route for 90 days. 2024 active Not Available Not Available Not Avai lable glimepiri de 1 mg tablet TAKE 1 TABLET BY MOUTH EVERY DAY BEFORE A MEAL 07/08 completed stopped by surgeon Not Available Not Available Not Available levothyro xine 75 mcg tablet TAKE 1 TABLET BY MOUTH EVERY MORNING 04/08 completed Not Available Not Available Not Available bethanech ol chloride 25 mg tablet 07/09 completed Not Available Not Available Not Available Nexium 20 mg capsule,d elayed release Take 1 capsule twice a day by oral route as needed for 30 days. 09/19 completed Not Available Not Available Not Available meloxicam 7.5 mg tablet TAKE 1 TABLET BY MOUTH TWICE DAILY NEEDED active Not Available Not Available No t Available levothyro xine 100 mcg tablet TAKE 1 TABLET BY MOUTH DAILY active Not Available Not Available No t Available Zofran 4 mg tablet Take 1 tablet twice a day by oral route as needed for 5 days. 03/31 completed Not Available Not Available Not Available oxycodone -acetamin ophen 5 mg-325 mg tablet 07/09 completed Not Available Not Available Not Available Tessalon Perles 100 mg capsule Take 1 capsule 3 times a day by oral route as needed. 11/26 completed Not Available Not Available Not Available terbinafi ne HCl 250 mg tablet Take 1 tablet every day by oral route. 06/07 completed Not Available Not Available Not Available potassium chloride 20 mEq oral packet One packet in water daily po active Not Available Not Available No t Available potassium chloride ER 20 mEq tablet,ex tended release(p art/cryst ) TAKE 2 TABLET(S ) TWICE A DAY BY ORAL ROUTE DIRECTED FOR 30 DAYS. TAKE WITH FOOD 06/02 completed Not Available Not Available Not Available prednisol one acetate 1 % eye drops,mandy pension 11/14 completed Not Available Not Available Not Available clarithro mycin ER 500 mg tablet,ex tended release 24 hr Take 2 tablets every day by oral route. 01/10 completed Not Available Not Available Not Available torsemide 100 mg tablet TAKE 1/2 TABLET BY MOUTH TWICE DAILY active Not Available Not Available No t Available aspirin 325 mg tablet,de layed release TAKE 1 TABLET BY MOUTH EVERY DAY 03/31 completed Not Available Not Available Not Available Kenalog 10 mg/mL suspensio n for injection Take 1 mL by injectio n route. 06/27 completed [facility] [place]: [id number] 4-20 Not Available Not Available Not Available dexametha sone 1 mg tablet TAKE 1 TABLET BY MOUTH 10 PM THE NIGHT BEFORE 8AM CORTISOL active Not Available Not Available No t Available Klor-Con 8 mEq tablet,ex tended release Take 1 tablet every day by oral route. 05/02 completed Not Available Not Available Not Available doxycycli ne monohydra te 100 mg capsule Take 1 capsule twice a day by oral route as directed for 7 days. 07/09 completed Not Available Not Available Not Available levothyro xine 50 mcg tablet TAKE 1 TABLET BY MOUTH EVERY DAY 02/27 completed Not Available Not Available Not Available hydrocodo ne 7.5 mg-acetam inophen 325 mg tablet 11/14 completed Not Available Not Available Not Available cephalexi n 500 mg capsule active Not Available Not Available Not Available pantopraz ole 40 mg tablet,de layed release TAKE 1 TABLET BY MOUTH EVERY DAY active Not Available Not Available No t Available metformin 1,000 mg tablet Take 1 tablet twice a day by oral route as directed for 30 days. 07/09 completed Not Available Not Available Not Available tobramyci n 0.3 % eye drops 08/10 completed Not Available Not Available Not Available ranitidin e 150 mg tablet TAKE ONE TABLET BY MOUTH TWICE DAILY 07/09 completed Not Available Not Available Not Available dexametha sone 4 mg tablet 12/27 completed Not Available Not Available Not Available lidocaine 5 % topical patch APPLY 1 PATCH TOPICALL Y TO THE SKIN DAILY. LEAVE ON MOST PAINFUL AREA FOR UP TO 12 HOURS active Not Available Not Available No t Available Advair Diskus 250 mcg-50 mcg/dose powder for inhalatio n Inhale 1 puff twice a day by inhalati on route for 90 days. 03/19 completed Not Available Not Available Not Available Combivent 18 mcg-103 mcg/actua tion aerosol inhaler Inhale 2 puffs every 6 hours by inhalati on route. 2012 active NO LONGER MADE Not Available Not Available Not Available nystatin- triamcino lone 100,000 unit/g-0. 1 % topical cream APLY TWICE DAILY TO AFFECTED AREA. USE SMALL AMOUNT SPARINGL Y. 06/02 completed Not Available Not Available Not Available nitroglyc florin 0.4 mg sublingua l tablet DISSOLVE 1 TABLET BY MOUTH SUBLIGUA LLY NEEDED FOR CHEST PAIN EVERY 5 MINUTES UP TO 3 TABLETS active Not Available Not Available No t Available docusate sodium 100 mg capsule TAKE ONE CAPSULE BY MOUTH TWICE DAILY active Not Available Not Available No t Available gabapenti n 300 mg capsule TAKE 1 CAPSULE BY MOUTH TWICE DAILY active Not Available Not Available No t Available omeprazol e 20 mg capsule,d elayed release 07/09 completed Not Available Not Available Not Available monteluka st 10 mg tablet TAKE 1 TABLET BY MOUTH EVERY DAY active Not Available Not Available No t Available allopurin ol 300 mg tablet TAKE 1 TABLET BY MOUTH DAILY active Not Available Not Available No t Available furosemid e 20 mg tablet TAKE TWO TABLETS BY MOUTH ONCE DAILY 09/20 completed Not Available Not Available Not Available gabapenti n 100 mg capsule Take 1 capsule every day by oral route. 01/21 completed Not Available Not Available Not Available ergocalci ferol (vitamin D2) 1,250 mcg (50,000 unit) capsule TAKE 1 CAPSULE BY MOUTH 1 TIME A WEEK active Not Available Not Available No t Available azelastin e 137 mcg (0.1 %) nasal spray qd 07/09 completed Not Available Not Available Not Available ibuprofen 600 mg tablet 04/15 completed Not Available Not Available Not Available cefuroxim e axetil 500 mg tablet Take 1 tablet every 12 hours by oral route as directed for 10 days. 03/31 completed Not Available Not Available Not Available polyethyl adalberto glycol 3350 17 gram/dose oral powder 04/15 completed Not Available Not Available Not Available Ativan 0.5 mg tablet Take 1 tablet every 8 hours by oral route as needed. 06/02 completed Not Available Not Available Not Available levofloxa ibis 750 mg tablet TAKE 1 TABLET BY MOUTH EVERY DAY FOR 10 DAYS DIRECTED 12/08 completed Not Available Not Available Not Available methylpre dnisolone 4 mg tablets in a dose pack take as directed 04/15 completed Not Available Not Available Not Available albuterol sulfate HFA 90 mcg/actua tion aerosol inhaler INHALE 2 PUFFS BY MOUTH EVERY 4 HOURS NEEDED FOR WHEEZING active Not Available Not Available No t Available ketoconaz ole 2 % topical cream APPLY TO THE AFFECTED AREA(S) great toenail left, BY TOPICAL ROUTE ONCE DAILY, 1 month 04/08 completed Not Available Not Available Not Available ondansetr on 4 mg disintegr ating tablet 07/08 completed Not Available Not Available Not Available cefdinir 300 mg capsule Take 1 capsule every 12 hours by oral route as directed for 7 days. 03/31 completed Not Available Not Available Not Available fluticaso ne propionat e 50 mcg/actua tion nasal spray,mandy pension SHAKE LIQUID AND USE 2 SPRAYS IN EACH NOSTRIL DAILY active Not Available Not Available No t Available lisinopri l 2.5 mg tablet TAKE 1 TABLET BY MOUTH EVERY DAY active Not Available Not Available No t Available itraconaz ole 100 mg capsule Take 2 capsules twice a day by oral route as directed for 14 days. 03/31 completed Not Available Not Available Not Available doxycycli ne hyclate 100 mg tablet 09/20 completed Not Available Not Available Not Available calcitrio l 0.25 mcg capsule TAKE 1 CAPSULE BY MOUTH TWICE DAILY active Not Available Not Available No t Available glipizide 5 mg tablet Take 0.5 tablets every day by oral route for 90 days. 03/31 completed Not Available Not Available Not Available ipratropi um bromide 0.02 % solution for inhalatio n USE 1 VIAL VIA NEBULIZE R EVERY 6 HOURS NEEDED active Not Available Not Available No t Available naproxen 500 mg tablet 04/15 completed Not Available Not Available Not Available Microlet Lancet TEST BLOOD GLUCOSE THREE TIMES DAILY active Not Available Not Available No t Available metoclopr amide 10 mg tablet 07/08 completed Not Available Not Available Not Available amoxicill in 875 mg-potass ium clavulana te 125 mg tablet TAKE 1 TABLET BY MOUTH TWICE DAILY FOR 7 DAYS 06/27 completed Not Available Not Available Not Available Clarinex 5 mg tablet Take 1 tablet every day by oral route as directed . 02/22 completed Not Available Not Available Not Available oxycodone 5 mg tablet active Not Available Not Available Not Available Mucinex 600 mg tablet, extended release Take 1 tablet every 12 hours by oral route as directed for 30 days. 11/23 completed Not Available Not Available Not Available escitalop otis 10 mg tablet take one tablet by mouth one time daily 06/07 completed Not Available Not Available Not Available nystatin- triamcino lone topical cream apply twice daily 02/22 completed Not Available Not Available Not Available cyclobenz aprine 5 mg tablet 09/20 completed Not Available Not Available Not Available bupivacai ne (PF) 0.5 % (5 mg/mL) injection solution In office injectio n administ ered by the provider 01/06 completed Not Available Not Available Not Available rosuvasta tin 10 mg tablet TAKE 1 TABLET BY MOUTH EVERY DAY 05/06 completed Not Available Not Available Not Available rosuvasta tin 20 mg tablet TAKE 1 TABLET BY MOUTH EVERY DAY active Not Available Not Available No t Available rosuvasta tin 40 mg tablet TAKE 1 TABLET BY MOUTH EVERY DAY active Not Available Not Available No t Available potassium chloride ER 10 mEq tablet,ex tended release(p art/cryst ) TAKE 4 TABLETS BY MOUTH TWICE DAILY 01/06 completed Not Available Not Available Not Available escitalop otis 5 mg tablet 08/13 completed Not Available Not Available Not Available metoprolo l tartrate 25 mg tablet TAKE 1 TABLET BY MOUTH TWICE DAILY active Not Available Not Available No t Available Spiriva with HandiHale r 18 mcg and inhalatio n capsules Inhale by inhalati on route. 03/19 completed Not Available Not Available Not Available Zyrtec 10 mg chewable tablet Chew 1 tablet every day by oral route. 02/22 completed Not Available Not Available Not Available nitrofura ntoin monohydra te/macroc rystals 100 mg capsule TAKE 1 CAPSULE BY MOUTH EVERY 12 HOURS BEFORE MEALS FOR 7 DAYS 07/24 completed Not Available Not Available Not Available Boostrix Tdap 2.5 Lf unit-8 mcg-5 Lf/0.5 mL intramusc ular syringe ADM 0.5ML IM UTD 03/31 completed Not Available Not Available Not Available levothyro xine 25mcgs daily 07/08 completed duplicat e Not Available Not Available Not Available lancets tests tid 2013 active Not Available Not Available Not Avai lable magnesium oxide i tablet daily 09/26 completed Not Available Not Available Not Available ferrous gluconate take 1 tab daily with meal 09/26 completed Not Available Not Available Not Available Benadryl 50mg once daily 11/14 completed Not Available Not Available Not Available Vitamin D 5,000uni t daily 2019 active Not Available Not Available Not Avai lable potassium 05/12 completed Not Available Not Available Not Available Zyloprim 200mg 1 TAB DAILY 02/25 completed Not Available Not Available Not Available Protonix 07/08 completed DUPLICAT E Not Available Not Available Not Available Spiriva with HandiHale r 18mcg 1puff daily as needed 03/31 completed Not Available Not Available Not Available lidocaine (PF) 10 mg/mL (1 %) injection solution In office injectio n administ ered by the provider 04/08 completed [facility] [place]: [phone] Not Available Not Available Not Available calcium 600 mg (as carbonate )-vitamin D3 10 mcg (400 unit) tablet Take by oral route. 2019 active Not Available Not Available Not Avai lable Symbicort 160 mcg-4.5 mcg/actua tion HFA aerosol inhaler INHALE 2 PUFFS BY MOUTH TWICE DAILY. RINSE MOUTH WITH WATER AFTER USE FOR AFTERTAS TE AND INCIDENC E OF CANDIDIA SIS. DO NOT SWALLOW active Not Available Not Available No t Available Bystolic 5 mg tablet once daily 06/07 completed Not Available Not Available Not Available Cepacol Sore Throat (benzocai ne-mentho l) 15 mg-3.6 mg lozenges Take 1 lozenge every 4-6 hours by mucous route. 01/10 completed Not Available Not Available Not Available Amitiza 8 mcg capsule one tab po bid 01/11 completed Not Available Not Available Not Available Truetest Test Strips test tid 2013 active changed machine Not Available Not Available Not Available GaviLyte- G 236 gram-22.7 4 gram-6.74 gram-5.86 gram oral solution 03/31 completed Not Available Not Available Not Available Embrace Blood Glucose System test 3 times per day 2013 active Not Available Not Available Not Avai lable Zyrtec 10 mg capsule Take by oral route. 06/02 completed duplicat e Not Available Not Available Not Available Dexilant 30 mg capsule, delayed release Take 1 capsule every day by oral route. 09/20 completed Not Available Not Available Not Available Vitamin D3 125 mcg (5,000 unit) tablet Take 1 tablet every day by oral route with meals. 08/09 completed Not Available Not Available Not Available Prolia 60 mg/mL subcutane ous syringe active Not Available Not Available Not Available Daliresp 500 mcg tablet Take 1 tablet every day by oral route. 03/19 completed Not Available Not Available Not Available ropivacai ne (PF) 5 mg/mL (0.5 %) injection solution in office 12/08 completed [facility] [place] [id number] - Not Available Not Available Not Available Adult Robitussi n Peak Cold DM Max 10 mg-200 mg/5 mL oral liquid 1 tsp every 4 hours as needed 04/08 completed Not Available Not Available Not Available Combivent Respimat 20 mcg-100 mcg/actua tion solution for inhalatio n INHALE 1 PUFF BY MOUTH FOUR TIMES DAILY NEEDED FOR WHEEZING active Not Available Not Available No t Available Tudorza Pressair 400 mcg/actua tion breath activated Inhale 1 puff every 12 hours by inhalati on route. 07/08 completed Not Available Not Available Not Available calcium 600 mg (as carbonate )-vitamin D3 20 mcg (800 unit) tablet Take 1 tablet every day by oral route in the morning for 30 days. 09/18 completed Not Available Not Available Not Available Linzess 145 mcg capsule Take 1 capsule every day by oral route. 12/27 completed Not Available Not Available Not Available Ultra Thin Lancets 31 gauge ONE THREE TIMES DAILY 2021 active Not Available Not Available Not Avai lable Linzess 290 mcg capsule TAKE 1 CAPSULE BY MOUTH DAILY active Not Available Not Available No t Available Eliquis 2.5 mg tablet Take 1 tablet every day by oral route for 28 days. 09/09 completed PT DOESNT THINK SHES TAKING Not Available Not Available Not Available TRUEplus Lancets 28 gauge USE TO TEST THREE TIMES DAILY 04/15 completed Not Available Not Available Not Available potassium chloride ER 20 mEq tablet,ex tended release TAKE 1 TABLET BY MOUTH TWICE DAILY active Not Available Not Available No t Available Jardiance 10 mg tablet TAKE 1 TABLET BY MOUTH EVERY DAY active Not Available Not Available No t Available Trulicity 1.5 mg/0.5 mL subcutane ous pen injector ADMINIST ER 1.5 MG UNDER THE SKIN EVERY WEEK IN THE MORNING 07/08 completed Not Available Not Available Not Available Trulicity 0.75 mg/0.5 mL subcutane ous pen injector INJECT 0.5ML UNDER THE SKIN EVERY WEEK 07/08 completed Not Available Not Available Not Available Kalyn SolNancyar U-300 Insulin 300 unit/mL (1.5 mL) subcutane ous pen INJECT UP TO 12 UNITS UNDER THE SKIN EVERY MORNING AND 14 UNITS EVERY NIGHT AT BEDTIME active Not Available Not Available No t Available ProAir RespiClic k 90 mcg/actua tion breath activated active Not Available Not Available No t Available Stiolto Respimat 2.5 mcg-2.5 mcg/actua tion solution for inhalatio n 06/07 completed Not Available Not Available Not Available Tresiba FlexTouch U-200 insulin 200 unit/mL (3 mL) subcutane ous pen Inject by subcutan eous route. 08/27 completed Not Available Not Available Not Available TechLITE Pen Needle 31 gauge x 03/29 USE TO INJECT INSULIN ONCE DAILY 2021 active Not Available Not Available Not Avai lable Bydureon BCise 2 mg/0.85 mL subcutane ous auto-inje ctor Inject by subcutan eous route. 03/31 completed Not Available Not Available Not Available OneTouch Ultra Blue Test Strip Use as directed . test sugars daily in morning x 90 days ok to substitu te meter, strips and lancets 06/29 completed Not Available Not Available Not Available magnesium 400 mg (as magnesium oxide) tablet Take by oral route. 08/09 completed Not Available Not Available Not Available OneTouch Delica Plus Lancet 33 gauge USE TO TEST THREE TIMES DAILY active Not Available Not Available No t Available Afluria Qd 2018- (36 mos up)(PF)60 mcg (15 mcg x4)/0.5 mL IM syringe ADM 0.5ML IM UTD 03/23 completed Not Available Not Available Not Available Salonpas 3.1 %-10 %-6 % topical patch Apply 1 patch every 12 hours by topical route as needed. 2024 active Not Available Not Available Not Avai lable FreeStyle Elias 2 Sensor kit Use as directed to check BG 06/02 completed Not Available Not Available Not Available Trulicity 3 mg/0.5 mL subcutane ous pen injector INJECT 3MG UNDER THE SKIN ONCE A WEEK AT DINNER 06/27 completed Not Available Not Available Not Available BinaxNOW COVID-19 Ag Self Test kit TEST DIRECTED TODAY 03/21 completed Not Available Not Available Not Available Paxlovid 300 mg (150 mg x 2)-100 mg tablets in a dose pack FOLLOW PACKAGE DIRECTIO NS 03/01 completed Not Available Not Available Not Available Dexcom G7 Sensor device CHANGE EVERY 10 DAYS active Not Available Not Available No t Available Ozempic 0.25 mg or 0.5 mg (2 mg/3 mL) subcutane ous pen injector Inject by subcutan eous route. active Not Available Not Available No t Available Contour Plus Test Strip USE TO TEST BLOOD SUGAR THREE TIMES DAILY active Not Available Not Available No t Available Contour Plus Blue Meter USE TO TEST BLOOD SUGAR THREE TIMES DAILY active Not Available Not Available No t Available Meg 2nd Gen Pen Needle 32 gauge x USE WITH INSULIN INJECTIO NS TWICE DAILY active Not Available Not Available No t Available Vitals Date Recorded Body height Body mass index (BMI) Body weight Pain severity - 0-10 verbal numeric rating [Score] - Reported Provider Name and Address Organization Details Last Updated DateTime 04/02/2025 160.02 cm 31.5 kg/m2 79698.44 g 8 Tamara Walker [facility] [place] 04/02/2025 13:55:50 Date Recorded Body height Body mass index (BMI) Body weight Pain severity - 0-10 verbal numeric rating [Score] - Reported Provider Name and Address Organization Details Last Updated DateTime 05/13/2025 160.02 cm 31.5 kg/m2 32559.44 g 8 Tamara Walker [employer] [place] 05/13/2025 09:17:21 Date Recorded Body height Body mass index (BMI) Body weight Heart rate Respiratory rate Oxygen saturation Systolic And Diastolic Provider Name and Address Organization Details Last Updated DateTime 5 160.02 cm 31.5 kg/m2 69507.4 4 g 81 /min 14 /min 98 % 111/65 mm[Hg] Pamela Booth [place] 5 10:44:14 Date Recorded Body height Body mass index (BMI) Body weight Body temperature Heart rate Oxygen saturation Respiratory rate Systolic And Diastolic Provider Name and Address Organization Details Last Updated DateTime 5 160.02 cm 32.1 kg/m2 13740.2 2 g 97.6 [degF] 71 /min 96 % 17 /min 104/60 mm[Hg] Milka Fuentes [place] 5 10:03:59 Date Recorded Body height Body mass index (BMI) Body weight Heart rate Respiratory rate Oxygen saturation Systolic And Diastolic Provider Name and Address Organization Details Last Updated DateTime 5 160.02 cm 32.1 kg/m2 47022.2 2 g 83 /min 14 /min 98 % 89/53 mm[Hg] Pamela Booth [place] 5 09:26:57 Social History Question Answer Notes LastModified by Organizat ion Details LastModified Time Tobacco Smoking Status Former Smoker Not Available [facility] 01/12/2023 02:30:13 Do You Have An Advance Directive? No Information Provided To Patient. [id number] Information not available 01/12/2023 Are You Blind Or Do You Have Difficulty Seeing? No MIGRATION.76122 96963 Information not available 01/12/2023 What Is Your Level Of Caffeine Consumption? Moderate Coffee Daily And Soda Weekly MIGRATION.22101 [id number] Information not available 01/12/2023 In The 14 Days Before Symptom Onset, Have You Had Close Contact With A Laboratory-confi rmed COVID-19 While That Case Was Ill? No MIGRATION.52369 [id number] Information not available 01/12/2023 In The 14 Days Before Symptom Onset, Have You Had Close Contact With A Person Who Is Under Investigation For COVID-19 While That Person Was Ill? No MIGRATION.64330 80217 Information not available 01/12/2023 Are You Deaf Or Do You Have Serious Difficulty Hearing? No MIGRATION.78139 24299 Information not available 01/12/2023 What Type Of Diet Are You Following? REGULAR MIGRATION.35781 34645 Information not available 01/12/2023 What Is The Highest Grade Or Level Of School You Have Completed Or The Highest Degree You Have Received? [id number] MIGRATION.60289 94315 Information not available 01/12/2023 Have There Been Any Changes To Your Family Or Social Situation? No MIGRATION.07394 26399 Information not available 01/12/2023 What Is The Fluoride Status Of Your Home? Unknown MIGRATION.35417 37713 Information not available 01/12/2023 When Did You Quit Smoking? 6-10yearssi ncelastciga rette MIGRATION.97255 91322 Information not available 01/12/2023 Are There Any Guns Present In Your Home? Yes MIGRATION.00024 03245 Information not available 01/12/2023 Do You Use Insect Repellent Routinely? No MIGRATION.29946 12994 Information not available 01/12/2023 [address] Do You Live? [place] MIGRATION.37310 33304 Information not available 01/12/2023 Presence Of Domestic Violence No Information not available 04/17/2024 Guns Present In The Home? Yes [email or web address] Information not available 04/17/2024 Are You Able To Care For Yourself? Yes [email or web address] Information not available 04/17/2024 Are You Blind Or Do Yo Have Difficulty Seeing? No Information not available 04/17/2024 Are You Deaf Or Do You Have Serious Difficulty Hearing? No [email or web address] Information not available 04/17/2024 General Stress Level? Low [email or web address] Information not available 04/17/2024 Live Alone Of With Others? Alone [email or web address] Information not available 04/17/2024 Do You Have A Medical Power Of Gasoline Attendant? No MIGRATION.70677 82914 Information not available 01/12/2023 What Was The Date Of Your Most Recent Tobacco Screening? 05/13/2025 [email or web address] Information not available 05/13/2025 What Is Your Current Pack Years? 30ormorepac kyears MIGRATION.70335 85522 Information not available 01/12/2023 Do You Have Any Pets? Yes MIGRATION.34695 31789 Information not available 01/12/2023 What Is Your Relationship Status? MIGRATION.29130 36391 Information not available 01/12/2023 Do You Use Your Seat Belt Or Car Seat Routinely? Yes MIGRATION.41458 56747 Information not available 01/12/2023 Do You Have Smoke And Carbon Monoxide Detectors In Your Home? Yes MIGRATION.10682 72868 Information not available 01/12/2023 At What Age Did You Start Smoking Tobacco? 10 MIGRATION.94370 82891 Information not available 01/12/2023 Are You Passively Exposed To Smoke? No MIGRATION.84937 74763 Information not available 01/12/2023 Are There Any Smokers In Your House? No MIGRATION.70082 47316 Information not available 01/12/2023 How Much Tobacco Do You Smoke? No MIGRATION.78035 33092 Information not available 01/12/2023 Do You Use Sunscreen Routinely? No MIGRATION.59314 29700 Information not available 01/12/2023 Has Tobacco Cessation Counseling Been Provided? No N/A MIGRATION.10869 89460 Information not available 01/12/2023 How Many Years Have You Smoked Tobacco? 46 MIGRATION.10305 93225 Information not available 01/12/2023 Have You Recently Traveled Abroad? No MIGRATION.90066 96688 Information not available 01/12/2023 Do You Have Difficulty Walking Or Climbing Stairs? Yes MIGRATION.97577 80511 Information not available 01/12/2023 Do You Have Any Dietary Restrictions? No MIGRATION.18167 90879 Information not available 01/12/2023 Sex: Female Functional Status Question Answer Note LastModified by Organizat ion Details LastModified Time Do you use any illicit or recreational drugs? No MIGRATION.52912 57445 Information not available 01/12/2023 Do you or have you ever used any other forms of tobacco or nicotine? No MIGRATION.47811 89807 Information not available 01/12/2023 What is your level of alcohol consumption? Occasional MIGRATION.73021 92217 Information not available 01/12/2023 Do you or have you ever used smokeless tobacco? Never used smokeless tobacco MIGRATION.26278 11221 Information not available 01/12/2023 Are you currently employed? No Disabled [email or web address] Information not available 12/20/2024 Do you have transportation difficulties? No MIGRATION.92260 62273 Information not available 01/12/2023 Are you able to walk independently without assistance or assistive devices? YESWOREST MIGRATION.34457 05680 Information not available 01/12/2023 Do you have difficulty doing errands alone? No MIGRATION.00396 20531 Information not available 01/12/2023 Are you able to care for yourself independently? Yes MIGRATION.64443 73746 Information not available 01/12/2023 Do you have difficulty dressing, bathing, grooming, or toileting? No MIGRATION.98658 48944 Information not available 01/12/2023 Do you or have you ever used e-cigarettes or vape? Never used electronic cigarettes MIGRATION.45312 21207 Information not available 01/12/2023 What is your exercise level? Occasional walk MIGRATION.28300 43137 Information not available 01/12/2023 Mental Status Question Answer Note LastModified by Organizat ion Details LastModified Time Do you feel stressed (tense, restless, nervous, or anxious, or unable to sleep at night)? [id number] MIGRATION.[id number] 26 Information not available 01/12/2023 Do you have difficulty concentrating, remembering or making decisions? No MIGRATION.[id number] 26 Information not available 01/12/2023 Family History Relationship Description Onset Age of this Age Resolved Age Notes LastModified by Organization Details LastModified Time Unspecified Relation Heart disease MIGRATION.274 [id number] Not available 01/12/2023 02:46:52 Unspecified Relation Family history of stroke MIGRATION.893 [id number] Not available 01/12/2023 02:46:52 Unspecified Relation Family history of malignant neoplasm MIGRATION.440 [id number] Not available 01/12/2023 02:46:52 Unspecified Relation History of hypertension MIGRATION.390 [id number] Not available 01/12/2023 02:46:52 Unspecified Relation Diabetes mellitus MIGRATION.135 [id number] Not available 01/12/2023 02:46:52 Unspecified Relation Kidney disease MIGRATION.553 [id number] Not available 01/12/2023 02:46:52 Brother Myocardial infarction MIGRATION.651 [id number] Not available 01/12/2023 02:46:52 Brother Cirrhosis of liver MIGRATION.690 [id number] Not available 01/12/2023 02:46:52 Sister Myocardial infarction MIGRATION.972 [id number] Not available 01/12/2023 02:46:52 Sister Cerebrovascu lar accident MIGRATION.956 [id number] Not available 01/12/2023 02:46:52 Medical History Condition Response NERVE DISEASE N BLINDNESS N RHEUMATIC FEVER N KIDNEY STONES N BLADDER PROBLEMS N MRSA N CARPAL TUNNEL SYNDROME N POLIO N LUNG DISEASE/DISORDER N HISTORY OF DRUG ABUSE N RADIATION / CHEMOTHERAPY Y COPD Y SPORTS INJURY N ANKLE PAIN N BLOOD DISEASES N SCHIZOPHRENIA N SHINGLES N BOWEL PROBLEMS Y SHOULDER PAIN N DEPRESSION (INCLUDING POST ) N STROKE/TIA N KNEE PAIN N ULCERS Y BENIGN PROSTATIC HYPERPLASIA N HYPOTENSION N MYOCARDIAL INFARCTION Y OBESITY N GERD/NAUSEA N ANEURYSM N URINARY/BLADDER/KIDNEY PROBLEMS Y CORONARY ARTERY DISEASE (CAD) Y ADDICTION CONCERNS N Impotence N USE OF BLOOD THINNERS Y SKIN PROBLEMS N EMPHYSEMA N PERIPHERAL VASCULAR DISEASE N MUSCLE,JOINT OR BONE PROBLEMS N DVT N STOMACH ULCERS N BLOOD CLOTS Y ASTHMA Y CATARACTS Y USE OF NSAIDS N CONCUSSION OR SPINAL TRAUMA N GI PROBLEMS Y NEUROPATHY N INFERTILITY N AIDS/HIV N FRACTURES N CHEMOTHERAPY / RADIATION N LIVER DISEASE Y ELBOW PAIN N HYPERTENSION Y TOURETTE'S N ANXIETY DISORDER N Metal allergy N BLOOD TRANSFUSION N ANEMIA/BLOOD DISORDER N CHRONIC EAR INFECTIONS N BIPOLAR DISORDER N BRONCHITIS Y OSTEOARTHRITIS N TUBERCULOSIS N FOOT PROBLEM N HEART VALVE DISORDERS N DIVERTICULITIS N CHICKENPOX N SLEEP APNEA Y SOFT TISSUE INJURY N ALLERGIES/HAYFEVER N INFECTIOUS DISEASE N HEART ARRHYTHMIA N PROSTATE N INSOMNIA N HIGH CHOLESTEROL / HYPERLIPIDEMIA N RHEUMATOID ARTHRITIS N HYPERTHYROIDISM Y EDEMA N CHRONIC PAIN SYNDROME N HYPOTHYROIDISM N CAROTID BLOCKAGE N BACK / NECK PROBLEMS Y HAVE YOU BEEN HOSPITALIZED OR SEEN IN [facility] IN THE PAST YEAR ? Y BURSITIS N BREAST PROBLEMS N HERNIATED DISC N DIALYSIS N FIBROMYALGIA N OSTEOPOROSIS N ARTHRITIS Y NO SIGNIFICANT PAST MEDICAL HISTORY N PERIPHERAL NEUROPATHY N APPENDICITIS N DIABETES, TYPE Y BAD TEETH N HEARTBURN / REFLUX N AUTISM SPECTRUM DISORDER (ASD) N HEPATITIS / LIVER DISEASE N GOUT N SLEEP DISORDER N ALZHEIMER'S DISEASE N Brain Problems N HERPES N DEMENTIA N HEADACHES/MIGRAINES N SEIZURES/EPILEPSY N VASCULAR DISEASE Y PACEMAKER N Blood Disorder N HIP PAIN N DIZZINESS Y HEAD TRAUMA OR INJURY N HEART DISEASE/HEART PROBLEMS Y KIDNEY DISEASE Y MULTIPLE SCLEROSIS N CARDIAC ARRHYTHMIA N CANCER: SPECIFY Y ANESTHESIA COMPLICATIONS N ATRIAL FIBRILLATION N PULMONARY EMBOLISM N AUTOIMMUNE DISEASE N Gynecological History Statement/Question Response How many live births 0 Date of Last Mammogram 02/16/2022 Date of Last Colonoscopy 08/31/2019 Date of Last Mammogram Most Recent Bone Density 08/25/2021 Date of LMP Date of Last Pap Current Control Method Hysterectom y Obstetrics History GPAL:G 0 P 0 0 0 0 Type Value Multiple Births 0 Full Term 0 Induced 0 Spontaneous 0 Premature 0 Living 0 Ectopics 0 Total 0 Immunizations Vaccine Type Date Status Note Provider Nam e and Address Organization Details Recorded Time Hep B, unspecified formulation 3 completed Not Available [facility] 11/02/2023 00:51:44 Influenza, split virus, trivalent, preservative 1 completed Not Available [facility] 06/27/2025 09:24:40 HepB-CpG 3 completed Not Available [facility] 06/27/2025 09:24:40 COVID-19, mRNA, LNP-S, bivalent, PF, 30 mcg/0.3 mL dose 3 completed [facility] 06/27/2025 09:24:40 COVID-19, mRNA, LNP-S, PF, 50 mcg/0.5 mL 3 completed Not Available [facility] 06/27/2025 09:24:40 Influenza, high-dose, quadrivalent, PF 3 completed Not Available [facility] 06/27/2025 09:24:40 RSV, recombinant, protein subunit RSVpreF, adjuvant reconstituted, 0.5 mL, PF 3 completed Not Available [facility] 06/27/2025 09:24:40 Influenza, high-dose, trivalent, PF 4 completed Not Available [facility] 06/27/2025 09:24:40 COVID-19, mRNA, LNP-S, PF, 50 mcg/0.5 mL 4 completed Not Available [facility] 06/27/2025 09:24:40 COVID-19, mRNA, LNP-S, bivalent, PF, 50 mcg/0.5 mL or 25mcg/0.25 mL dose 2 completed Not Available [facility] 11/02/2023 00:51:44 COVID-19, mRNA, LNP-S, bivalent, PF, 50 mcg/0.5 mL or 25mcg/0.25 mL dose 2 completed Not Available [facility] 11/02/2023 00:51:44 Influenza, split virus, quadrivalent, PF 0 completed Not Available [facility] 11/02/2023 00:51:44 pneumococcal polysaccharide PPV23 6 completed Not Available [facility] 11/02/2023 00:51:44 COVID-19 vaccine, vector-nr, [id number], PF, 0.5 mL 1 completed Not Available [facility] 11/02/2023 00:51:44 Influenza, split virus, quadrivalent, preservative 9 completed Not Available [facility] 11/02/2023 00:51:44 Tdap 9 completed Not Available [facility] 11/02/2023 00:51:44 Influenza, high-dose, quadrivalent, PF 2 completed Not Available [facility] 11/02/2023 00:51:44 COVID-19, mRNA, LNP-S, PF, 100 mcg/0.5mL dose or 50 mcg/0.25mL dose 1 completed Not Available [facility] 11/02/2023 00:51:44 Influenza, split virus, trivalent, preservative 3 completed Not Available [facility] 11/02/2023 00:51:44 Past Encounters Encounter ID Performer Location Encounter Start Date Encounter Closed Date Diagnosis/Indication Diagnosis SNOMED-CT Code Diagnosis ICD10 Code Diagnosis IMO Codes Diagnosis Note [id number] Aashish Bond DPM [facility] [address] 01/22/2021 00:00:00 01/22/2021 11:38:38 [id number] [facility] [address] [address] 03/23/2021 00:00:00 03/23/2021 17:08:51 [id number] Maria A schneider MD [facility] Internal Med [address] [address] 03/31/2021 00:00:00 03/31/2021 18:29:31 [id number] Vicky Siddiqi MD _[facility]_ IGRATION_ DEFAULT_1 _1 , 04/02/2021 00:00:00 04/02/2021 18:16:43 [id number] Eloy Lepe MD [facility] [address] [address] 04/23/2021 00:00:00 04/23/2021 10:16:44 [id number] Maria A schneider MD [facility] [address] [address] 1 05/12/2021 00:00:00 05/12/2021 15:33:41 [id number] Eloy Lepe MD [facility] [address] [address] 05/14/2021 00:00:00 05/14/2021 09:24:58 [id number] Aashish Bond DPM [facility] Podiat[address] [address] 05/21/2021 00:00:00 2021 09:05:21 [id number] Eloy Lepe MD [facility] [address] [address] 06/25/2021 00:00:00 07/12/2021 21:43:06 [id number] Eloy Lepe MD [facility] [address] [place] [address] 9 07/02/2021 00:00:00 07/12/2021 21:33:55 [id number] Osmani Flanagan MD [facility] Pulmonolo [address] [place] [address] 0 07/08/2021 00:00:00 08/28/2021 11:52:36 [id number] Vicky Siddiqi MD _ATHTERRY_M IGRATION_ DEFAULT_1 _1 , 07/23/2021 00:00:00 07/23/2021 20:50:38 [id number] Eloy Lepe MD [facility] [address] [address] 07/30/2021 00:00:00 07/30/2021 09:09:02 [id number] Maria A schneider MD [facility] Internal Med [facility] [address] [place] [address] 15 [place] [address] 08/04/2021 00:00:00 08/04/2021 16:49:20 [id number] Aashish Bond DPM [facility] Podiatry [address] [address] 08/27/2021 00:00:00 08/31/2021 08:56:33 [id number] [facility] Pulmonolo gy [place] [address] [place] [address] 09/01/2021 00:00:00 09/01/2021 14:52:49 [id number] Eloy Lepe MD [facility] [address] [place] [address] 09/03/2021 00:00:00 09/03/2021 11:30:33 [id number] Jesse Gilbert MD [facility] [address] [address] 09/22/2021 00:00:00 09/22/2021 09:18:24 [id number] MD ESTELLA Manriquez IGRATION_ DEFAULT_1 _1 , 11/19/2021 00:00:00 11/19/2021 17:32:25 [id number] [facility] Pulmonolo gy [place] [address] [place] [address] 12/01/2021 00:00:00 12/01/2021 11:34:23 [id number] Eloy Lepe MD [facility] [address] [place] [address] 12/10/2021 00:00:00 12/10/2021 09:27:24 [id number] Aashish Bond DPM [facility] Podiatry [address] [place] [address] 25 [place] [address] 12/29/2021 00:00:00 12/29/2021 13:52:27 [id number] [facility] _PRATIK IGRATION_ DEFAULT_1 _1 , 01/28/2022 00:00:00 01/28/2022 17:35:51 [id number] Maria A schneider MD [facility] Internal Med [place] [address] [facility], [address] [place] [address] 02/02/2022 00:00:00 02/02/2022 16:44:31 [id number] MD ESTELLA Manriquez IGRATION_ DEFAULT_1 _1 , 03/11/2022 00:00:00 03/11/2022 14:35:54 [id number] [facility] Pulmonolo gy [place] [address] [place] [address] 03/19/2022 00:00:00 03/19/2022 13:45:58 [id number] [facility] [address] [place] [address] 25 [place] [address] 03/29/2022 00:00:00 03/29/2022 10:06:38 [id number] Eloy Lepe MD [facility] [address] [place] [address] 04/08/2022 00:00:00 04/08/2022 15:42:54 [id number] Eloy Lepe MD [facility] [address] [place] [address] 04/15/2022 00:00:00 04/15/2022 15:58:36 [id number] Vicky Siddiqi MD _ATHENA_M IGRATION_ DEFAULT_1 _1 , 05/06/2022 00:00:00 05/06/2022 10:08:17 [id number] Maria A schneider MD [facility] Internal [place] [address] [place] [address], [facility] [address] [place] [address] 07/08/2022 00:00:00 07/08/2022 11:41:33 [id number] Eloy Lepe MD [facility] [address] [place] [address] 07/15/2022 00:00:00 07/15/2022 09:48:31 [id number] Aashish Bond DPM [facility] Podiatry [address] [place] [address] 25 [place] [address] 08/12/2022 00:00:00 08/12/2022 10:04:25 [id number] [facility] Endo Sosa [place] [address] [place] [address] 09/02/2022 00:00:00 09/02/2022 09:54:28 [id number] MINERVA ThomasBC [facility] Pulmonolo gy [place] [address] [place] [address] 09/07/2022 00:00:00 09/07/2022 16:01:31 [id number] Maria A schneider MD [facility] Internal Med [place] [address] [place] [place] [address] 09/09/2022 00:00:00 10/03/2022 20:48:25 [id number] Vicky Siddiqi MD [facility] Endo [place] [address] [place] [address] 12/27/2022 00:00:00 12/27/2022 12:56:54 [id number] Maria A schneider MD [facility] Med [facility] [address] [facility] [address] [place] [address] 01/06/2023 00:00:00 01/06/2023 10:51:33 [id number] Dorcas Barr, [facility] Pulmonolo gy [place] [address] [place] [address] 03/01/2023 10:56:01 03/01/2023 11:42:12 Asthma-chronic obstructive pulmonary disease overlap syndrome [id number] 5341185 J44.9 She is due for PFT and walk testingOrd er entered today, she will complete this prior to RTCContinu e ICS/LABA/L AMA therapy.In structed on techniqueS he is current on all vaccinesDi scussed reportable signs and symptomsRX for ventolin today, this works better for her than albuterolN ebulizer PRNRTC in 6 months, PRN for concerns Multiple n odules of lung 203326902 R91.[address] 09/2021 with small (less than 1mm nodules to RUL ) and 2.5mm nodule to RMLRepeat 09/2022 with nodules to RML 5.5 and RUL 4.5, stableRepe at in one year 09/2023 Obstructiv e sleep apnea syndrome 34157421 G47.33 Download today on CPAP pressure 8 cm with AHI 1.463% use greater than 4 hours.JASE is well correctedE ncouraged 100% compliance with all sleepAdvis ed good sleep habits and patterns:- Set a goal for at least 7 to 8 hours of sleep time per day.-Use the bed mainly for sleep and to go to bed only when tired. If unable to fall asleep after 30 minutes, patient should get out of bed but should not engage in any activity that requires sustained mental alertness. -Maintain a regular bedtime and wake-up time even on weekends or days off of work.-Avoi d excessive naps during the daytime. If a nap is necessary, limit it to no more than 30 minutes.-M inimize environmen oscar noise, bright lights, and extremes in bedroom temperatur e.-Avoid alcohol, caffeinate d beverages, and nicotine products for at least 6 hours prior to bedtime.-A void strenuous exercise and large meals for at least 4 hours prior to bedtime.Do wnload in 6 months Dyspnea on exertion 6084 5006 R06.09 Multifacto ralImprove dAlpha1 normal MMRAST, IGE, QFG, IGGS normal Chronic cough 82451936 R 05.3 Continue inhaled therapyExe rcise, declines PRWEight loss Bacterial infection caused by Pseudomonas 88490342 A49.8 +sputum 04/2022 [id number] Aashish Bond DPM [facility] Podiatry [address] [place] [address] 03/03/2023 10:12:08 03/03/2023 11:04:51 Diabetic peripheral neuropathy 334711719 E11.42 Patient educated on neuropathy , diabetes, diabetic diet, and daily foot exams. Patient is to check feet daily for new wounds, blisters, redness to prevent infection and ulceration s to the feet. Patient will return to clinic in 4 months for diabetic foot workup.Rec ommend diabetic shoes and inserts Dystrophia unguium 55949 009 L60.3 Nails 1 through 10 were debrided with sharp mechanical debridemen t without incident. Nails were debrided and greater than 50% length and thickness where needed. [id number] Eloy Lepe MD [facility] Ortho [address], [address] [place] [address] 03/31/2023 10:11:03 03/31/2023 11:30:47 Pain of left knee joint 7671176406 03161 M25.562 [id number] Maria A schneider MD [facility] [address] [facility], [address] [place] [address] 06/02/2023 09:30:39 06/02/2023 10:35:31 Screening - NAD 743793140 Z13.9 C-scope: 08/28/14: Dr. 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/2022 for bleeding from surgical site DEXA 08/20/19: Osteopenia , on vit d and caDEXA: 08/25/2021 : Osteopenia Ordered 06/02/2023 UTD flu shotUTD on PPV 23 12/17/2015 , does not want any more pneumonia vaccinesUT D Tdap last monthGet shingles if not doneUTD on COVID 19 vaccine RTC in 3 monthsDo labsER if any sx worsenshe did verbalize her understand ing of the above 45 minutes spent with the patient Type 2 kelly betes mellitus without complication 332933175 E11.9 On glimepirid e 2mg daily On toujeo 12U in am and 14U in pm On trulicity F/u with Dr Siddiqi/Andre Dewey 09/02/[address] Bond next apt 06/30/[address] Daniels 07/31/2021 Hyperlipidemia 87170566 E78.5 On rosuvastat in 20mg daily Get labs Leukocytosis 434425168 D 72.[address] Douglas 12/01/2022 Hypothyroidism 78201570 E03.9 05/01/18: US neck: R thyroid lobe nodule 05/30/18: She states that she has declined to get a biopsy, as she states Dr Villalba told her she did not need one as it is a very small nodule and will have another US in August ENT Dr Booth 05/03/19, no bx done, US done, one new nodule seen but not meeting criteria for biopsy, f/u in one year with US Did see Dr Astorga and is to get the US thyroid on 05/2020 S/p US thyroid 08/28/2020 : get another in one year S/p US thyroid 08/13/2021 : Next in one year On levothyrox ine 25mcgs Get labs Steatotic liver disease 470123505 K76.0 US abd/pelvis : 10/12/17: Fatty liver, advised to diet and exercise and declines any referral to hepatologi st CT abd 08/14/18, fatty liver Dr Adams 05/09/19, did recommend hep B vaccine 01/14/2020 : Dr Adams, Fibroscan to be done, worrisome for WILCOX with hepatitis Needs to see Dr Adams as she states that she missed her last apt d/t not having a ride Chronic ki dney disease 345298440 N18.9 On calcitriol On vit d weeklyOn allopurino l 300mg daily Sees Dr Hurtado IJ Coronary arteriosclerosis 22109272 I25.[address] Ross 04/27/2023 On eliquis but not taking thisOn lisinopril 2.5mg dailyOn metoprolol 25 mg bidNot on metolazone 2.5mg dailyOn NTGOn K 10meq dailyOn spirinolac tone 25mg dailyOn K Er 20meq bidOn toresamide 100mg bid 05/08/19: Dr Ross, s/p aortogram and stenting of subclavian , on ASA and plavix for 90 days: s/p angio, negative, Dr RossCT chest 08/21/2020 : [facility], next in one yearS/p AIF on 07/01/2020 S/p US UES/p US LE 04/14/2023 : Dr Brown 03/14/2023 US Arterial LE 04/14/2023 US Arterial UE 04/14/2023 Dr Ross 01/22/2022 , f/u in one month Dr Ross 03/03/2022 , f/u in 4 months, now on protonix Dr Ross 12/24/2022 , stopped the plavix and f/u in 3 monthsDr Ross 03/25/2023 Gout 84263866 M10.9 On allopurino Soy calcium Gastroesop hageal reflux disease without esophagitis 702493788 K21.9 S/p EGD 11/22/18 09/24/2020 : Dr Godoe, EGD: esophagiti s, moniliasis , gastritisD oes well now Neuropathy 239061785 G62 .9 On gabapentin 300mg bid, decreased to 100mg bid by her palliative nurse 08/17/2022 but is now only taking it daily She does have foot pain and was told to restart this by Dr Bond Rectal hemorrhage 382664 02 K62.[address] Turner Cyst of ovary 61977755 N 83.[address] Connelly [place]Sees OB [place] Dr Hendrickson, is to see Jil Peters on 04/14/2020 04/14/2020 : Dr Peters: is to get more imaging and may need to get surgery for the jonny ovarian cysts as the CEA was elevated OV 08/27/2020 :She does see Dr Peters OV 11/26/2020 :She states that now she sees Sandra Daugherty OV 03/31/2021 :Get an apt with Kristina Daugherty OV 05/12/2021 :Does need to see Dr Peters OV 08/04/2021 :Needs to see Dr Peters, but she is very insistent that she does not want to see her anymoreDec lines any symptoms OV 02/02/2022 :No more complaints at this time OV 07/08/2022 : to 05/18/2022 : admitted for abd pain, diagnosed with adnexal mass, readmitted and d/c 06/01 to 06/08/2022 , f/u with Dr Lisseth Peters OV 09/09/2022 :Now see a palliative RNSees Dr Peters OV 06/02/2023 :See Dr Turner Chronic ob structive pulmonary disease 10779422 J44.9 On CPAPOn combiventO n HHNsOn singulairO n symbicortO n zyrtecGet on augmentin for URI sx today 06/02/2023 PFT: 08/27/2021 LDCT 09/22/2021 : Next in one yearFifislim Barr CHIEF ORTHOPTIST next 09/13/2023 Constipation 06720525 K5 9.00 On linzessDoe s well on this Pain of le ft knee joint 3734353930 [address] Lepe last 07/15/2022 Jad CAMERON 03/31/2023 Screening mammography 24 809216 Z12.31 Screening for osteoporosis 622091967 Z13.820 Hypokalemia 21016800 E87 .6 Check K again [id number] Aashish Bond DPM S[facility] Podiatry [address] [facility] [address] [place] [address] 06/28/2023 13:59:49 07/14/2023 12:35:47 Diabetic peripheral neuropathy 279587591 E11.42 Patient educated on neuropathy , diabetes, diabetic diet, and daily foot exams. Patient is to check feet daily for new wounds, blisters, redness to prevent infection and ulceration s to the feet. Patient will return to clinic in 4 months for diabetic foot workup.Rec ommend diabetic shoes and inserts Dystrophia unguium 58721 009 L60.3 Nails 1 through 10 were debrided with sharp mechanical debridemen t without incident. Nails were debrided and greater than 50% length and thickness where needed. [id number] Maria A schneider MD [facility] Internal [facility] [address] [facility] [address] [place] [address] 09/08/2023 09:46:50 09/08/2023 11:00:04 Screening - NAD 448972485 Z13.9 C-scope: 08/28/14: Dr. Goode and next in 5 years08/31: Dr Goode, genet in 7 years Mammogram: 12/04/18, negMammogr am: 09/01/2020 : negMammogr am: 02/16/2022 : NegMammogr am: 07/08/2023 : Neg PAP: 12/02/17: CEA 9.3H done by Dr Sutton she sees Sandra Daugherty CHIEF ORTHOPTIST and will make her apt S/p hystrectom y, BRANDON: Dr Peters 2022 , s/p serous carcinoma R ovarySeen in ER on 06/10/2022 for bleeding from surgical site DEXA 08/20/19: Osteopenia , on vit d and caDEXA: 08/25/2021 : Osteopenia Ordered 06/02/2023 UTD flu shotUTD on PPV 23 12/17/2015 , does not want any more pneumonia vaccinesUT D Tdap last monthGet shingles if not doneUTD on COVID 19 vaccine RTC in 3 monthsDo labsER if any sx worsenshe did verbalize her understand ing of the above 45 minutes spent with the patient Type 2 kelly betes mellitus without complication 121800650 E11.9 On glimepirid e 2mg daily On toujeo 12U in am and 14U in pm On trulicity F/u with Dr Siddiqi/Andre Dewey 09/02/[address] Bond next apt 06/30/[address] Daniels 07/31/2021 Hyperlipidemia 47796564 E78.5 On rosuvastat in 20mg daily Get labs Leukocytosis 788300297 D 72.[address] Douglas 12/01/2022 Hypothyroidism 87042237 E03.9 05/01/18: US neck: R thyroid lobe nodule 05/30/18: She states that she has declined to get a biopsy, as she states Dr Villalba told her she did not need one as it is a very small nodule and will have another US in August ENT Dr Booth 05/03/19, no bx done, US done, one new nodule seen but not meeting criteria for biopsy, f/u in one year with US Did see Dr Astorga and is to get the US thyroid on 05/2020 S/p US thyroid 08/28/2020 : get another in one year S/p US thyroid 08/13/2021 : Next in one year On levothyrox ine 25mcgs Get labs Steatotic liver disease 482477211 K76.0 US abd/pelvis : 10/12/17: Fatty liver, advised to diet and exercise and declines any referral to hepatologi st CT abd 08/14/18, fatty liver Dr Adams 05/09/19, did recommend hep B vaccine 01/14/2020 : Dr Adams, Fibroscan to be done, worrisome for WILCOX with hepatitis Needs to see Dr Adams as she states that she missed her last apt d/t not having a ride Chronic ki dney disease 869211026 N18.9 On calcitriol On vit d weeklyOn allopurino l 300mg daily Sees Dr Hurtado IJ Coronary arteriosclerosis 73326208 I25.[address] Ross 04/27/2023 On eliquis but not taking thisOn lisinopril 2.5mg dailyOn metoprolol 25 mg bidNot on metolazone 2.5mg dailyOn NTGOn K 10meq dailyOn spironolac tone 25mg dailyOn K Er 20meq bidOn torasemide 100mg bid 05/08/19: Dr Ross, s/p aortogram and stenting of subclavian , on ASA and plavix for 90 days: s/p angio, negative, Dr RossCT chest 08/21/2020 : [facility], next in one yearS/p AIF on 07/01/2020 S/p US UES/p US LE 04/14/2023 : Dr RossECHKaveh 03/14/2023 US Arterial LE 04/14/2023 US Arterial UE 04/14/2023 Dr Ross 01/22/2022 , f/u in one month Dr Ross 03/03/2022 , f/u in 4 months, now on protonix Dr Ross 12/24/2022 , stopped the plavix and f/u in 3 monthsDr Ross 03/25/2023 Gout 94529685 M10.9 On allopurino Soy calcium Gastroesop hageal reflux disease without esophagitis 781993660 K21.9 S/p EGD 11/22/18 09/24/2020 : Dr Goode, EGD: esophagiti s, moniliasis , gastritisD oes well now Neuropathy 581782912 G62 .9 On gabapentin 300mg bid, decreased to 100mg bid by her palliative nurse 08/17/2022 but is now only taking it daily She does have foot pain and was told to restart this by Dr Bond Rectal hemorrhage 986750 02 K62.5 Does well Does see Dr Turner Cyst of ovary 89484853 N 83.209 Does antoinetteDojamel see Dr Gallagheryst of ovarySees OB [place] referred by Dr Hendrickson, is to see Jil Peters on 04/14/2020 04/14/2020 : Dr Peters: is to get more imaging and may need to get surgery for the jonny ovarian cysts as the CEA was elevated OV 08/27/2020 :She does see Dr Peters OV 11/26/2020 :She states that now she sees Sandra Daugherty OV 03/31/2021 :Get an apt with Kristina Daugherty OV 05/12/2021 :Does need to see Dr Peters OV 08/04/2021 :Needs to see Dr Peters, but she is very insistent that she does not want to see her anymoreDec lines any symptoms OV 02/02/2022 :No more complaints at this time OV 07/08/2022 : to 05/18/2022 : admitted for abd pain, diagnosed with adnexal mass, readmitted and d/c 06/01 to 06/08/2022 , f/u with Dr Lisseth Peters OV 09/09/2022 :Now see a palliative RNSees Dr Peters OV 06/02/2023 :See Dr Turner 09/08/2023 :Sees Dr Peters Chronic ob structive pulmonary disease 11063263 J44.9 On CPAPOn combiventO n HHNsOn singulairO n symbicortO n zyrtecGet on augmentin for URI sx today 09/08/2023 PFT: 08/27/2021 LDCT 09/22/2021 : Next in one yearDorcas Barr CHIEF ORTHOPTIST next 09/13/2023 Constipation 84023351 K5 9.00 On linzessDoe s well on this Pain of le ft knee joint 2404637770 [address] Lepe last 07/15/2022 Jad Coleman PA 03/31/2023 Screening for osteoporosis 222244791 Z13.820 Renewal of prescription 322127503 Z76.0 Erythrocytosis 860440736 D75.1 Repeat the labs, needs to see Dr Douglas [id number] Eloy Lepe MD [facility] [address] [facility], [address] [place] [address] 09/15/2023 11:07:25 09/15/2023 12:41:50 Osteoarthritis of left knee joint 1457766980 54039 M17.12 [id number] Dorcas Barr, [employer] 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-[facility] Pulmonolo gy [place] [address] [place] [address] 09/20/2023 10:32:28 09/20/2023 11:27:29 Asthma-chronic obstructive pulmonary disease overlap syndrome 1490177040 5730812 J44.9 PFT completed 08/2023Rat io 62FEV1 57, no BD responseTL C 117RV 154DLCO 63 adjustedCo ntinue ICS/LABA/L AMA therapy.Sy mbicort 160 two puffs BIDShe alternates duonebs with Combivent for a total of QID - I have advised her on max dose limitShe is current on all vaccinesAl pha1 normalDisc ussed reportable signs and symptoms Multiple n odules of lung 809370869 R91.[address] 09/2021 with small (less than 1mm nodules to RUL ) and 2.5mm nodule to RMLRepeat 09/2022 with nodules to RML 5.5 and RUL 4.5, stableRepe at in one year 09/2023, ordered today Obstructiv e sleep apnea syndrome 71679870 G47.33 Last download on CPAP pressure 8 cm with AHI 1.463% use greater than 4 hours.JASE was well correctedS he has good use and clinical benefitEnc ouraged 100% compliance with all sleepAdvis ed good sleep habits and patterns:- Set a goal for at least 7 to 8 hours of sleep time per day.-Use the bed mainly for sleep and to go to bed only when tired. If unable to fall asleep after 30 minutes, patient should get out of bed but should not engage in any activity that requires sustained mental alertness. -Maintain a regular bedtime and wake-up time even on weekends or days off of work.-Avoi d excessive naps during the daytime. If a nap is necessary, limit it to no more than 30 minutes.-M inimize environmen oscar noise, bright lights, and extremes in bedroom temperatur e.-Avoid alcohol, caffeinate d beverages, and nicotine products for at least 6 hours prior to bedtime.-A void strenuous exercise and large meals for at least 4 hours prior to bedtime. 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 Nails were debrided and greater than 50% length and thickness where needed. [id number] Maria A schneider MD [facility] [address] [facility], [address] [address] 12/08/2023 09:29:35 12/08/2023 10:25:00 Screening - NAD 312851097 Z13.9 C-scope: 08/28/14: Dr. Goode and next in 5 years08/31: Dr Goode, next in 7 years Mammogram: 12/04/18, negMammogr am: 09/01/2020 : negMammogr am: 02/16/2022 : NegMammogr am: 07/08/2023 : Neg PAP: 12/02/17: CEA 9.3H done by Dr Sutton she sees Sandra Daugherty CHIEF ORTHOPTIST and will make her apt S/p hystrectom y, BRANDON: Dr Peters 2022 , s/p serous carcinoma R ovarySeen in ER on 06/10/2022 for bleeding from surgical site DEXA 08/20/19: Osteopenia , on vit d and caDEXA: 08/25/2021 : Osteopenia Ordered 06/02/2023 UTD flu shotUTD on PPV 23 12/17/2015 , does not want any more pneumonia vaccinesUT D Tdap last monthGet shingles if not doneUTD on COVID 19 vaccine RTC in 3 monthsDo labsER if any sx worsenshe did verbalize her understand ing of the above 45 minutes spent with the patient Type 2 kelly betes mellitus without complication 686237899 E11.9 On glimepirid e 2mg dailyOn toujeo 12U in am and 14U in pmOn trulicity F/u with Dr Siddiqi/Andre Dewey 09/02/[address] Bond next apt 06/30/[address] Daniels 07/31/2021 Hyperlipidemia 60467935 E78.5 On rosuvastat in 20mg daily Get labs Leukocytosis 051753559 D 72.[address] Douglas 12/01/2022 Hypothyroidism 41627975 E03.9 05/01/18: US neck: R thyroid lobe nodule 05/30/18: She states that she has declined to get a biopsy, as she states Dr Villalba told her she did not need one as it is a very small nodule and will have another US in August ENT Dr Booth 05/03/19, no bx done, US done, one new nodule seen but not meeting criteria for biopsy, f/u in one year with US Did see Dr Astorga and is to get the US thyroid on 05/2020 S/p US thyroid 08/28/2020 : get another in one year S/p US thyroid 08/13/2021 : Next in one year On levothyrox ine 25mcgs Get labs Steatotic liver disease 641054164 K76.0 US abd/pelvis : 10/12/17: Fatty liver, advised to diet and exercise and declines any referral to hepatologi stCT abd 08/14/18, fatty liver Dr Adams 05/09/19, did recommend hep B vaccine 01/14/2020 : Dr Adams, Fibroscan to be done, worrisome for WILCOX with hepatitis Needs to see Dr Adams as she states that she missed her last apt d/t not having a ride US liver 09/27/2023 Chronic ki dney disease 844436294 N18.9 On calcitriol On vit d weeklyOn allopurino l 300mg daily Sees Dr Hurtado IJ Coronary arteriosclerosis 30855668 I25.10 [address] AS[address] on [address] Ross 04/27/2023 On eliquis but not taking thisOn lisinopril 2.5mg dailyOn metoprolol 25 mg bidNot on metolazone 2.5mg dailyOn NTGOn K 10meq dailyOn spironolac tone 25mg dailyOn K Er 20meq bidOn torasemide 100mg bid 05/08/19: Dr Ross, s/p aortogram and stenting of subclavian , on ASA and plavix for 90 days: s/p angio, negative, Dr RossCT chest 08/21/2020 : [facility], next in one yearS/p AIF on 07/01/2020 S/p US UES/p US LE 04/14/2023 : Dr Bronw 03/14/2023 US Arterial LE 04/14/2023 US Arterial UE 04/14/2023 Dr Ross 01/22/2022 , f/u in one month Dr Ross 03/03/2022 , f/u in 4 months, now on protonix Dr Ross 12/24/2022 , stopped the plavix and f/u in 3 monthsDr Ross 03/25/2023 , referred 12/08/2023 Gout 34376814 M10.9 On allopurino Soy calcium Gastroesop hageal reflux disease without esophagitis 284423564 K21.9 S/p EGD 11/22/18 09/24/2020 : Dr Goode, EGD: esophagiti s, moniliasis , gastritisD oes well now Neuropathy 842712126 G62 .9 On gabapentin 300mg bid, decreased to 100mg bid by her palliative nurse 08/17/2022 but is now only taking it daily She does have foot pain and was told to restart this by Dr Bond, f/u 02/28/2024 Rectal hemorrhage 329065 02 K62.5 Does well Does see Dr Turner Cyst of ovary 12458516 N 83.[address] Connelly of [place]Sees OB [place] referred by Dr Hendrickson, is to see [facility] MD Dr Peters on 04/14/2020 04/14/2020 : Dr Peters: is to get more imaging and may need to get surgery for the jonny ovarian cysts as the CEA was elevated OV 08/27/2020 :She does see Dr Peters OV 11/26/2020 :She states that now she sees Sandra Daugherty OV 03/31/2021 :Get an apt with Kristina Daugherty OV 05/12/2021 :Does need to see Dr Peters OV 08/04/2021 :Needs to see Dr Peters, but she is very insistent that she does not want to see her anymoreDec lines any symptoms OV 02/02/2022 :No more complaints at this time OV 07/08/2022 : to 05/18/2022 : admitted for abd pain, diagnosed with adnexal mass, readmitted and d/c 06/01 to 06/08/2022 , f/u with Dr Lisseth Peters OV 09/09/2022 :Now see a palliative RNSees Dr Peters OV 06/02/2023 :See Dr Turner 09/08/2023 :Sees Dr Lorraine Peters 09/26/2023 Chronic ob structive pulmonary disease 35778778 J44.9 On CPAPOn combiventO n HHNsOn singulairO n symbicortO n zyrtec PFT: 08/27/2021 LDCT 09/22/2021 : Next in one yearDorcas Barr CHIEF ORTHOPTIST next 09/13/2023 CT chest 10/27/2023 : Dorcas Mittal NPNow should see Dr Dorcas Barr CHIEF ORTHOPTIST again, referred 12/08/2023 Constipation 94240051 K5 9.00 On linzessDoe s well on this Pain of le ft knee joint 6110629968 [address] Lepe last 07/15/2022 Jad CAMERON 03/31/2023 Screening for osteoporosis 908424703 Z13.820 Erythrocytosis 525218683 D75.1 Repeat the labs, needs to see Dr Douglas [facility] ed type 2 diabetes mellitus 823896824 E11.65 Acute urin jose de jesus tract infection 949447339 N39.0 UA 12/08/2023 : Moderate Leuk, and bloodGet on augmentin 875mg po bid for 7 days Skin lesion 02839756 L98 .9 Small very tender soft mobile cyst noted on the R anterior scalp just at the hair line, will get on augmentin, if not better then will need to see G surgery [id number] Aashish Bond DPM [facility] [address] [facility] [address] [place] [address] 02/28/2024 14:32:36 02/28/2024 16:01:01 Diabetic peripheral neuropathy 455661034 E11.42 Continue diabetic control per PCPreferra l pain management Continue gabapentin per PCP, may benefit from LyricaCont inue supportive shoe gearMonito r feet daily for wounds infectionF ollow-up in 3 months Dystrophia unguium 52645 009 L60.3 Nails 1 through 10 were debrided with sharp mechanical debridemen t without incident. Nails were debrided and greater than 50% length and thickness where needed. [id number] Maria A schneider MD [facility] [address] [facility], [facility] [address] [place] [address] 04/17/2024 09:36:49 04/17/2024 10:50:09 Adult health examination 931160965 Z00.00 Screening for disorder 601170696 Z13.9 Screening - NAD 65077502 3 Z13.9 C-scope: 08/28/14: Dr. Goode and genet in 5 years08/31: Dr Nyazee, next in 7 years Mammogram: 12/04/18, negMammogr am: 09/01/2020 : negMammogr am: 02/16/2022 : NegMammogr am: 07/08/2023 : Neg PAP: 12/02/17: CEA 9.3H done by Dr Sutton she sees Sandra Daugherty CHIEF ORTHOPTIST and will make her apt S/p hystrectom y, BRANDON: Dr Peters 2022 , s/p serous carcinoma R ovarySeen in ER on 06/10/2022 for bleeding from surgical site DEXA 08/20/19: Osteopenia , on vit d and caDEXA: 08/25/2021 : Osteopenia Ordered 06/02/2023 UTD flu shotUTD on PPV 23 12/17/2015 , does not want any more pneumonia vaccinesUT D Tdap last monthGet shingles if not doneUTD on COVID 19 vaccineCan do RSV vaccine RTC in 3 monthsDo labsER if any sx worsenshe did verbalize her understand ing of the above 45 minutes spent with the patient Type 2 kelly betes mellitus without complication 221314834 E11.9 On glimepirid e 2mg dailyOn jardiance 10mg daily Dr Michael BROWN 04/13/2024 On toujeo 12U in am and 14U in pmOn trulicity F/u with Dr Siddiqi/Andre Dewey 09/02/[address] Bond next apt 06/30/[address] Daniels 07/31/2021 Dr Daniels 03/23/2024 Hyperlipidemia 48007106 E78.5 On rosuvastat in 20mg dailyGet labs Leukocytosis 231327231 D 72.[address] Douglas Hypothyroidism 77283911 E03.9 05/01/18: US neck: R thyroid lobe nodule 05/30/18: She states that she has declined to get a biopsy, as she states Dr Villalba told her she did not need one as it is a very small nodule and will have another US in August ENT Dr Booth 05/03/19, no bx done, US done, one new nodule seen but not meeting criteria for biopsy, f/u in one year with US Did see Dr Astorga and is to get the US thyroid on 05/2020 S/p US thyroid 08/28/2020 : get another in one year S/p US thyroid 08/13/2021 : Next in one year On levothyrox ine 25mcgs Get labs Steatotic liver disease 107246828 K76.0 US abd/pelvis : 10/12/17: Fatty liver, advised to diet and exercise and declines any referral to hepatologi stCT abd 08/14/18, fatty liver Dr Adams 05/09/19, did recommend hep B vaccine 01/14/2020 : Dr Adams, Fibroscan to be done, worrisome for WILCOX with hepatitis Needs to see Dr Adams as she states that she missed her last apt d/t not having a ride US liver 09/27/2023 Dr Adams 02/13/2024 Chronic ki dney disease 046824401 N18.9 On calcitriol On vit d weeklyOn allopurino l 300mg daily Sees Dr Hurtado IJ Coronary arteriosclerosis 39111300 I25.10 On ASANot on plavix Dr Ross 04/27/2023 On eliquis but not taking thisOn lisinopril 2.5mg dailyOn metoprolol 25 mg bidNot on metolazone 2.5mg dailyOn NTGOn K 10meq dailyOn spironolac tone 25mg dailyOn K Er 20meq bidOn torasemide 100mg bid 05/08/19: Dr Ross, s/p aortogram and stenting of subclavian , on ASA and plavix for 90 days: s/p angio, negative, Dr RossCT chest 08/21/2020 : [facility], next in one yearS/p AIF on 07/01/2020 S/p US UES/p US LE 04/14/2023 : Dr RossECHO 03/14/2023 US Arterial LE 04/14/2023 US Arterial UE 04/14/2023 Dr Ross 01/22/2022 , f/u in one month Dr Ross 03/03/2022 , f/u in 4 months, now on protonix Dr Ross 12/24/2022 , stopped the plavix and f/u in 3 monthsDr Ross 03/25/2023 , referred 12/08/2023 Gout 41997302 M10.9 On allopurino Soy calcium Gastroesop hageal reflux disease without esophagitis 038497196 K21.9 S/p EGD 11/22/18 09/24/2020 : Dr Goode, EGD: esophagiti s, moniliasis , gastritisD oes well now Neuropathy 646805556 G62 .9 On gabapentin 300mg bid, decreased to 100mg bid by her palliative nurse 08/17/2022 but is now only taking it daily She does have foot pain and was told to restart this by Dr Bond, f/u 02/28/2024 Rectal hemorrhage 195552 02 K62.5 Does well Does see Dr Turner Cyst of ovary 47149777 N 83.[address] Connelly of ovarySees OB [place] referred by Dr Hendrickson, is to see Jil Peters on 04/14/2020 04/14/2020 : Dr Peters: is to get more imaging and may need to get surgery for the jonny ovarian cysts as the CEA was elevated OV 08/27/2020 :She does see Dr Peters OV 11/26/2020 :She states that now she sees Sandra Daugherty OV 03/31/2021 :Get an apt with Kristina Daugherty OV 05/12/2021 :Does need to see Dr Peters OV 08/04/2021 :Needs to see Dr Peters, but she is very insistent that she does not want to see her anymoreDec lines any symptoms OV 02/02/2022 :No more complaints at this time OV 07/08/2022 : to 05/18/2022 : admitted for abd pain, diagnosed with adnexal mass, readmitted and d/c 06/01 to 06/08/2022 , f/u with Dr Lisseth Peters OV 09/09/2022 :Now see a palliative RNSees Dr Peters OV 06/02/2023 :See Dr Turner 09/08/2023 :Sees Dr Lorraine Peters 09/26/2023 Dr Peters 04/03/2024 , f/u in 3 months Chronic ob structive pulmonary disease 20475449 J44.9 On CPAPOn combiventO n HHNsOn singulairO n symbicortO n zyrtec PFT: 08/27/2021 LDCT 09/22/2021 : Next in one yearDorcas Barr CHIEF ORTHOPTIST next 09/13/2023 CT chest 10/27/2023 : Dorcas Mittal NPNow should see Dr Dorcas Barr CHIEF ORTHOPTIST again, referred 12/08/2023 Dr Fields: 02/02/2024 Genevieve Meza CHIEF ORTHOPTIST 03/20/2024 : Palliative care Today 04/17/2024 :Has noted a cough since about a week, got 'wet' in the rain, no fevers or chills, some wheezing is using her ventolin puffer, done with the z-pack given by Dr Michael BROWN, will start on augmentin 875mg po bid for 7 days, ER if worse, she is very appreciati ve and verbalized her understand ing of the above Constipation 04262026 K5 9.00 On linzessDoe s well on this Pain of le ft knee joint 9401404509 [address] Lepe last 07/15/2022 Jad CAMERON 03/31/2023 Screening for osteoporosis 475997032 Z13.820 Erythrocytosis 172513027 D75.1 Repeat the labs, needs to see Dr Douglas Skin lesion 98236196 L98 .9 Small very tender soft mobile cyst noted on the R anterior scalp just at the hair line, will get on augmentin, if not better then will need to see G surgery Renewal of prescription 170629125 Z76.0 Screening mammography 24 271105 Z12.31 Skin tag 624885981 L91.8 Small skin tag noted on the L cheek and L lower eyelidRefe r to Dr Clark [id number] Aashish Bodn DPM [facility] [address] [facility] [address] [place] [address] 05/29/2024 09:19:10 05/30/2024 11:03:46 Plantar fasciitis of left foot 9019286953 5567922 M72.2 injection left plantar heel todayexerc ises reviewed and displimite d weight bearingno strenuous activities follow up in 3-4 weeks, possible cam boot vs PT Pain of left heel 857732 7470 014764 M79.672 as abovea [id number] Aashish Bond DPM [facility] [address] [facility] [address] [place] [address] 06/26/2024 09:37:23 06/26/2024 14:01:22 Foot pain 32751544 M79.672 Plantar fa sciitis of left foot 5927430898 7993798 M72.2 injection left plantar heel todayexerc ises reviewed and displimite d weight bearingno strenuous activities follow up in 1 month, possible cam boot [id number] Maria A schneider MD [facility] [address] [facility], [address] [place] [address] 07/24/2024 09:43:47 07/24/2024 11:19:01 Type 2 diabetes mellitus without complication 825902801 E11.9 On glimepirid e 2mg dailyOn jardiance 10mg daily Dr Hurtado IJ 04/13/2024 On toujeo 12U in am and 14U in pmOn trulicity 3mg weekly, has tolerated this well, she has denied any MEN2/MCT/P arathyroid or pancreatic complaints , should hydrate and take supplement s F/u with Dr Siddiqi/Andre Dewey 09/02/[address] Bond next apt 06/30/2023 Dr Bond next apt 07/31/[address] Daniels 07/31/2021 Dr Daniels 03/23/2024 , now wants to see Dr [place], referred 07/24/2024 Screening - NAD 71977375 3 Z13.9 C-scope: 08/28/14: Dr. 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 on 06/10/2022 for bleeding from surgical site DEXA 08/20/19: Osteopenia , on vit d and caDEXA: 08/25/2021 : Osteopenia Ordered 06/02/2023 UTD flu shotUTD on PPV 23 12/17/2015 , does not want any more pneumonia vaccinesUT D Tdap last monthGet shingles if not doneUTD on COVID 19 vaccineCan do RSV vaccine RTC in 3 monthsDo labsER if any sx worsenshe did verbalize her understand ing of the above 45 minutes spent with the patient Hyperlipidemia 34414326 E78.5 On rosuvastat in 20mg dailyGet labs Leukocytosis 953076119 D 72.[address] Douglas Hypothyroidism 86251517 E03.9 05/01/18: US neck: R thyroid lobe nodule 05/30/18: She states that she has declined to get a biopsy, as she states Dr Villalba told her she did not need one as it is a very small nodule and will have another US in August ENT Dr Booth 05/03/19, no bx done, US done, one new nodule seen but not meeting criteria for biopsy, f/u in one year with US Did see Dr Astorga and is to get the US thyroid on 05/2020 S/p US thyroid 08/28/2020 : get another in one year S/p US thyroid 08/13/2021 : Next in one year On levothyrox ine 25mcgs, will change to unithroid 07/24/2024 Get labs US thyroid: 05/15/2024 Steatotic liver disease 224132002 K76.0 US abd/pelvis : 10/12/17: Fatty liver, advised to diet and exercise and declines any referral to hepatologi stCT abd 08/14/18, fatty liver Dr Adams 05/09/19, did recommend hep B vaccine 01/14/2020 : Dr Adams, Fibroscan to be done, worrisome for [facility]X with hepatitis Needs to see Dr Adams as she states that she missed her last apt d/t not having a ride US liver 09/27/2023 Dr Adams 02/13/2024 Chronic ki dney disease 039814769 N18.9 On calcitriol On vit d weeklyOn allopurino l 300mg daily Sees Dr Michael BROWN Coronary arteriosclerosis 84493695 I25.10 On ASANot on plavix Dr Ross 04/27/2023 On eliquis but not taking thisOn lisinopril 2.5mg dailyOn metoprolol 25 mg bidNot on metolazone 2.5mg dailyOn NTGOn K 10meq dailyOn spironolac tone 25mg dailyOn K Er 20meq bidOn torasemide 100mg bid 05/08/19: Dr Ross, s/p aortogram and stenting of subclavian , on ASA and plavix for 90 days: s/p angio, negative, Dr RossCT chest 08/21/2020 : [facility], next in one yearS/p AIF on 07/01/2020 S/p US UES/p US LE 04/14/2023 : Dr RossECHO 03/14/2023 US Arterial LE 04/14/2023 US Arterial UE 04/14/2023 Dr Ross 01/22/2022 , f/u in one month Dr Ross 03/03/2022 , f/u in 4 months, now on protonix Dr Ross 12/24/2022 , stopped the plavix and f/u in 3 monthsDr Ross 03/25/2023 Dr Knight 10/21/2023 Gout 37134212 M10.9 On allopurino Soy calcium Gastroesop hageal reflux disease without esophagitis 309507496 K21.9 S/p EGD 11/22/18 09/24/2020 : Dr Goode, EGD: esophagiti s, moniliasis , gastritisD oes well now Neuropathy 207113263 G62 .9 On gabapentin 300mg bid, decreased to 100mg bid by her palliative nurse 08/17/2022 but is now only taking it daily She does have foot pain and was told to restart this by Dr Bond, f/u 02/28/2024 Rectal hemorrhage 498278 02 K62.5 Does well Does see Dr Turner Cyst of ovary 12138196 N 83.[address] Gallagheryst of ovarySees OB [place] referred by Dr Hendrickson, is to see Jil Peters on 04/14/2020 04/14/2020 : Dr Peters: is to get more imaging and may need to get surgery for the jonny ovarian cysts as the CEA was elevated OV 08/27/2020 :She does see Dr Peters OV 11/26/2020 :She states that now she sees Sandra Daugherty OV 03/31/2021 :Get an apt with Kristina Daugherty OV 05/12/2021 :Does need to see Dr Peters OV 08/04/2021 :Needs to see Dr Peters, but she is very insistent that she does not want to see her anymoreDec lines any symptoms OV 02/02/2022 :No more complaints at this time OV 07/08/2022 : to 05/18/2022 : admitted for abd pain, diagnosed with adnexal mass, readmitted and d/c 06/01 to 06/08/2022 , f/u with Dr Lisseth Peters OV 09/09/2022 :Now see a palliative RNSees Dr Peters OV 06/02/2023 :See Dr Turner 09/08/2023 :Sees Dr Lorraine Peters 09/26/2023 Dr Peters 04/03/2024 , f/u in 3 monthsS/p CT C/A/P BJ 07/02/2024 : cystitis Chronic ob structive pulmonary disease 24226299 J44.9 On CPAPOn combiventO n HHNsOn singulairO n symbicortO n zyrtec PFT: 08/27/2021 LDCT 09/22/2021 : Next in one yearDorcas Barr CHIEF ORTHOPTIST next 09/13/2023 CT chest 10/27/2023 : Dorcas Mittal NPNow should see Dr Dorcas Barr CHIEF ORTHOPTIST again, referred 12/08/2023 Dr Fields: 02/02/2024 Genevieve Meza CHIEF ORTHOPTIST 03/20/2024 : Palliative care 04/17/2024 : Has noted a cough since about a week, got 'wet' in the rain, no fevers or chills, some wheezing is using her ventolin puffer, done with the z-pack given by Dr Michael BROWN, will start on augmentin 875mg po bid for 7 days, ER if worse, she is very appreciati ve and verbalized her understand ing of the above OV 07/24/2024 : Keep apt with Dorcas Corcoran Constipation 24122716 K5 9.00 On linzessDoe s well on this Pain of le ft knee joint 5591407085 [address] Lepe last 07/15/2022 Jad Coleman PA 03/31/2023 Screening for osteoporosis 053594568 Z13.820 Erythrocytosis 228053759 D75.1 Repeat the labs, needs to see Dr Douglas Skin lesion 54967299 L98 .9 Small very tender soft mobile cyst noted on the R anterior scalp just at the hair line, will get on augmentin, if not better then will need to see G surgery Renewal of prescription 033630542 Z76.0 Screening mammography 24 152492 Z12.31 Skin tag 831884541 L91.8 Small skin tag noted on the L cheek and L lower eyelidRefe r to Dr Clark Acute urin jose de jesus tract infection 653738534 N39.0 UA 12/08/2023 : Moderate Leuk, and bloodGet on augmentin 875mg po bid for 7 days UA 07/24/2024 : Leuk, trace bloodS/p CT C/A/P [facility] 07/02/2024 : cystitisGe t on augmentin 875mg po bid for 7 daysShe states that she was treated by Dr Peters for this last month [id number] Aashish Bond DPM [facility] [address] [address] 07/31/2024 09:55:40 07/31/2024 13:16:02 Pain in left foot 0263937681 73593 M79.672 Plantar fa sciitis of left foot 3000706384 9102603 M72.2 injection left plantar heel - Last visitPT not helpingRx cam bootexerci ses reviewed and displimite d weight bearingno strenuous activities follow up in 3-4 weeks- MRI at that time and possible endoscopic plantar fasciotomy [id number] Aashish Bond DPM [facility] [address] [address] 08/28/2024 09:55:58 08/28/2024 14:52:45 Pain of left heel 8363355094 152426 M79.672 Plantar fa sciitis of left foot 8721164538 0212802 M72.2 improvedin jection left plantar heel - Last visitPT at home finished formalRx cam boot- continue for 1 monthexerc ises reviewed and displimite d weight bearingno strenuous activities follow up in 3-4 weeks- [id number] Maria A schneider MD [facility] [address] [place] [address] 09/20/2024 13:56:16 09/20/2024 14:48:41 Type 2 diabetes mellitus without complication 009120967 E11.9 On glimepirid e 2mg dailyOn jardiance 10mg daily Dr Michael BROWN 04/13/2024 On toujeo 12U in am and 14U in pmOn trulicity 3mg weekly, has tolerated this well, she has denied any MEN2/MCT/P arathyroid or pancreatic complaints , should hydrate and take supplement s F/u with Dr Siddiqi/Andre Dewey 09/02/[address] Bond next apt 06/30/2023 Dr Bond next apt 07/31/[address] Daniels 07/31/2021 Dr Daniels 03/23/2024 , now wants to see Dr [place], referred 07/24/2024 Screening - NAD 08549942 3 Z13.9 C-scope: 08/28/14: Dr. 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 on 06/10/2022 for bleeding from surgical site DEXA 08/20/19: Osteopenia , on vit d and caDEXA: 08/25/2021 : Osteopenia Ordered 06/02/2023 UTD flu shotUTD on PPV 23 12/17/2015 , does not want any more pneumonia vaccinesUT D Tdap last monthGet shingles if not doneUTD on COVID 19 vaccineCan do RSV vaccine RTC in 3 monthsDo labsER if any sx worsenshe did verbalize her understand ing of the above 45 minutes spent with the patient, labs reviewed, chart updated Hyperlipidemia 46570120 E78.5 On rosuvastat in 20mg daily, declined any new meds, can do rosuvastat in 40mg dailyGet labs Leukocytosis 296699725 D 72.[address] Douglas Hypothyroidism 89232721 E03.9 05/01/18: US neck: R thyroid lobe nodule 05/30/18: She states that she has declined to get a biopsy, as she states Dr Villalba told her she did not need one as it is a very small nodule and will have another US in August ENT Dr Booth 05/03/19, no bx done, US done, one new nodule seen but not meeting criteria for biopsy, f/u in one year with US Did see Dr Astorga and is to get the US thyroid on 05/2020 S/p US thyroid 08/28/2020 : get another in one year S/p US thyroid 08/13/2021 : Next in one year On levothyrox ine 25mcgs, will change to unithroid 07/24/2024 Get labs US thyroid: 05/15/2024 Steatotic liver disease 792279702 K76.0 US abd/pelvis : 10/12/17: Fatty liver, advised to diet and exercise and declines any referral to hepatologi stCT abd 08/14/18, fatty liver Dr Adams 05/09/19, did recommend hep B vaccine 01/14/2020 : Dr Adams, Fibroscan to be done, worrisome for [place]IL[place]X with hepatitis Needs to see Dr Adams as she states that she missed her last apt d/t not having a ride US liver 09/27/2023 Dr Adams 02/13/2024 Chronic ki dney disease 542925104 N18.9 On calcitriol On vit d weeklyOn allopurino l 300mg daily Sees Dr Michael BROWN Coronary arteriosclerosis 86006512 I25.10 On ASANot on plavix Dr Ross 04/27/2023 On eliquis but not taking thisOn lisinopril 2.5mg dailyOn metoprolol 25 mg bidNot on metolazone 2.5mg dailyOn NTGOn K 10meq dailyOn spironolac tone 25mg dailyOn K Er 20meq bidOn torasemide 100mg bid 05/08/19: Dr Ross, s/p aortogram and stenting of subclavian , on ASA and plavix for 90 days: s/p angio, negative, Dr RossCT chest 08/21/2020 : [facility], next in one yearS/p AIF on 07/01/2020 S/p US UES/p US LE 04/14/2023 : Dr RossECHKaveh 03/14/2023 US Arterial LE 04/14/2023 US Arterial UE 04/14/2023 Dr Ross 01/22/2022 , f/u in one month Dr Ross 03/03/2022 , f/u in 4 months, now on protonix Dr Ross 12/24/2022 , stopped the plavix and f/u in 3 monthsDr Ross 03/25/2023 Dr Knight 10/21/2023 Gout 57468928 M10.9 On allopurino Soy calcium Gastroesop hageal reflux disease without esophagitis 194253707 K21.9 S/p EGD 11/22/18 09/24/2020 : Dr Goode, EGD: esophagiti s, moniliasis , gastritisD oes well now Neuropathy 604584618 G62 .9 On gabapentin 300mg bid, decreased to 100mg bid by her palliative nurse 08/17/2022 but is now only taking it daily She does have foot pain and was told to restart this by Dr Bond, f/u 02/28/2024 Rectal hemorrhage 934862 02 K62.5 Does well Does see Dr Turner Cyst of ovary 19922015 N 83.[address] Connelly of ovarySees OB [place] referred by Dr Hendrickson, is to see Jil Peters on 04/14/2020 04/14/2020 : Dr Peters: is to get more imaging and may need to get surgery for the jonny ovarian cysts as the CEA was elevated OV 08/27/2020 :She does see Dr Peters OV 11/26/2020 :She states that now she sees Sandra Daugherty OV 03/31/2021 :Get an apt with Kristina Daugherty OV 05/12/2021 :Does need to see Dr Peters OV 08/04/2021 :Needs to see Dr Peters, but she is very insistent that she does not want to see her anymoreDec lines any symptoms OV 02/02/2022 :No more complaints at this time OV 07/08/2022 : to 05/18/2022 : admitted for abd pain, diagnosed with adnexal mass, readmitted and d/c 06/01 to 06/08/2022 , f/u with Dr Lisseth Peters OV 09/09/2022 :Now see a palliative RNSees Dr Peters OV 06/02/2023 :See Dr Turner 09/08/2023 :Sees Dr Lorraine Peters 09/26/2023 Dr Peters 04/03/2024 , f/u in 3 monthsS/p CT C/A/P [facility] 07/02/2024 : cystitis Chronic ob structive pulmonary disease 05945504 J44.9 On CPAPOn combiventO n HHNsOn singulairO n symbicortO n zyrtec PFT: 08/27/2021 LDCT 09/22/2021 : Next in one yearDorcas Barr CHIEF ORTHOPTIST next 09/13/2023 CT chest 10/27/2023 : Dorcas Mittal NPNow should see Dr Dorcas Barr CHIEF ORTHOPTIST again, referred 12/08/2023 Dr Fields: 02/02/2024 Genevieve Meza CHIEF ORTHOPTIST 03/20/2024 : Palliative care 04/17/2024 : Has noted a cough since about a week, got 'wet' in the rain, no fevers or chills, some wheezing is using her ventolin puffer, done with the z-pack given by Dr Michael BROWN, will start on augmentin 875mg po bid for 7 days, ER if worse, she is very appreciati ve and verbalized her understand ing of the above OV 07/24/2024 : Keep apt with Dorcas Corcoran OV 09/20/2024 : Needs to see pulmonary Constipation 05965136 K5 9.00 On linzessDoe s well on this Pain of le ft knee joint 4418804624 [address] Lepe last 07/15/2022 Jad Coleman PA 03/31/2023 Screening for osteoporosis 704876852 Z13.820 Erythrocytosis 238764644 D75.1 Repeat the labs, needs to see Dr Douglas Skin lesion 08459245 L98 .9 Small very tender soft mobile cyst noted on the R anterior scalp just at the hair line, will get on augmentin, if not better then will need to see G surgery Renewal of prescription [id number] Z76.0 Screening mammography 24 170666 Z12.31 Skin tag 341960022 L91.8 Small skin tag noted on the L cheek and L lower eyelidRefe r to Dr Clark referred again 09/20/2024 Hypokalemia 23997774 E87 .6 Is on KCheck K again, given by Dr Michael BROWN [id number] Aashish Bond DPM [facility] [address] [facility] [address] [place] [address] 09/25/2024 14:28:11 11/09/2024 12:01:25 Plantar fasciitis of left foot 1549270032 6916929 M72.2 Resolvedco ntinue supportive shoe gear, orthotics, stretching to prevent recurrence Follow-up as needed Metatarsal ariadna of left foot 6914107302 91988 M77.42 dispensed dancer's pad added to accommodat golden insoles for offloading continue to break in diabetic insoles and shoesfollo w-up as needed [id number] Maria A schneider MD [facility] [address] [facility] [address] [place] [address] 12/20/2024 09:31:23 12/20/2024 10:31:16 Type 2 diabetes mellitus without complication 985977954 E11.9 On glimepirid e 2mg dailyOn jardiance 10mg daily Dr Michael BROWN 04/13/2024 On toujeo 12U in am and 14U in pmOn trulicity 3mg weekly, has tolerated this well, she has denied any MEN2/MCT/P arathyroid or pancreatic complaints , should hydrate and take supplement s F/u with Dr Siddiqi/Andre Dewey 09/02/[address] Bond next apt 06/30/2023 Dr Bond next apt 07/31/[address] Daniels 07/31/2021 Dr Daniels 03/23/2024 , now wants to see Dr [place], referred 07/24/2024 Screening - NAD 44858046 3 Z13.9 C-scope: 08/28/14: Dr. 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 on 06/10/2022 for bleeding from surgical site DEXA 08/20/19: Osteopenia , on vit d and caDEXA: 08/25/2021 : Osteopenia Ordered 06/02/2023 UTD flu shotUTD on PPV 23 12/17/2015 , does not want any more pneumonia vaccinesUT D Tdap last monthGet shingles if not doneUTD on COVID 19 vaccineCan do RSV vaccine RTC in 3 monthsDo labsER if any sx worsenshe did verbalize her understand ing of the above 45 minutes spent with the patient, labs reviewed, chart updated Hyperlipidemia 39436584 E78.5 On rosuvastat in 20mg daily, declined any new meds, can do rosuvastat in 40mg dailyGet labs Leukocytosis 964764276 D 72.[address] Douglas Hypothyroidism 37372390 E03.9 05/01/18: US neck: R thyroid lobe nodule 05/30/18: She states that she has declined to get a biopsy, as she states Dr Villalba told her she did not need one as it is a very small nodule and will have another US in August ENT Dr Booth 05/03/19, no bx done, US done, one new nodule seen but not meeting criteria for biopsy, f/u in one year with US Did see Dr Astorga and is to get the US thyroid on 05/2020 S/p US thyroid 08/28/2020 : get another in one year S/p US thyroid 08/13/2021 : Next in one year On levothyrox ine 25mcgs, will change to unithroid 07/24/2024 Get labs US thyroid: 05/15/2024 Steatotic liver disease 947157307 K76.0 US abd/pelvis : 10/12/17: Fatty liver, advised to diet and exercise and declines any referral to hepatologi stCT abd 08/14/18, fatty liver Dr Adams 05/09/19, did recommend hep B vaccine 01/14/2020 : Dr Adams, Fibroscan to be done, worrisome for WILCOX with hepatitis Needs to see Dr Adams as she states that she missed her last apt d/t not having a ride US liver 09/27/2023 Dr Adams 02/13/2024 Chronic ki dney disease 364414415 N18.9 On calcitriol 0.25mg bidOn vit d is now once a monthOn allopurino l 300mg daily Sees Dr Hurtado IJ Coronary arteriosclerosis 77999337 I25.10 On ASANot on pl[address] Dr Ross 04/27/2023 On eliquis but not taking thisOn lisinopril 2.5mg dailyOn metoprolol 25 mg bidNot on metolazone 2.5mg dailyOn NTGOn K 10meq dailyOn spironolac tone 25mg dailyOn K Er 20meq bidOn torasemide 100mg 1/2 tab bid 05/08/19: Dr Ross, s/p aortogram and stenting of subclavian , on ASA and plavix for 90 days12/19/ 19: s/p angio, negative, Dr RossCT chest 08/21/2020 : [facility], next in one yearS/p AIF on 07/01/2020 S/p US UES/p US LE 04/14/2023 : Dr RossECHKaveh 03/14/2023 US Arterial LE 04/14/2023 US Arterial UE 04/14/2023 Dr Ross 01/22/2022 , f/u in one month Dr Ross 03/03/2022 , f/u in 4 months, now on protonix Dr Ross 12/24/2022 , stopped the plavix and f/u in 3 monthsDr Ross 03/25/2023 Dr Knight 10/21/2023 Gout 12366156 M10.9 On allopurino Soy calcium Gastroesop hageal reflux disease without esophagitis 541618281 K21.9 S/p EGD 11/22/18 09/24/2020 : Dr Goode, EGD: esophagiti s, moniliasis , gastritisD oes well now Neuropathy 648537210 G62 .9 On gabapentin 300mg bid, decreased to 100mg bid by her palliative nurse 08/17/2022 but is now only taking it daily She does have foot pain and was told to restart this by Dr Bond, f/u 02/28/2024 Rectal hemorrhage 623239 02 K62.5 Does well Does see Dr Turner Cyst of ovary 00291900 N 83.[address] Gallagheryst of ovarySees OB [place] Dr Hendrickson, is to see Jil Peters on 04/14/2020 04/14/2020 : Dr Peters: is to get more imaging and may need to get surgery for the jonny ovarian cysts as the CEA was elevated OV 08/27/2020 :She does see Dr Peters OV 11/26/2020 :She states that now she sees Sandra Daugherty OV 03/31/2021 :Get an apt with Kristina Daugherty OV 05/12/2021 :Does need to see Dr Peters OV 08/04/2021 :Needs to see Dr Peters, but she is very insistent that she does not want to see her anymoreDec lines any symptoms OV 02/02/2022 :No more complaints at this time OV 07/08/2022 : to 05/18/2022 : admitted for abd pain, diagnosed with adnexal mass, readmitted and d/c 06/01 to 06/08/2022 , f/u with Dr Lisseth Peters OV 09/09/2022 :Now see a palliative RNSees Dr Peters OV 06/02/2023 :See Dr Turner 09/08/2023 :Sees Dr Lorraine Peters 09/26/2023 Dr Peters 04/03/2024 , f/u in 3 monthsS/p CT C/A/P [facility] 07/02/2024 : cystitis Chronic ob structive pulmonary disease 57881910 J44.9 On CPAPOn combiventO n HHNsOn singulairO n symbicortO n zyrtec PFT: 08/27/2021 LDCT 09/22/2021 : Next in one yearDorcas Barr CHIEF ORTHOPTIST next 09/13/2023 CT chest 10/27/2023 : Dorcas Mittal NPNow should see Dr Dorcas Barr CHIEF ORTHOPTIST again, referred 12/08/2023 Dr Fields: 02/02/2024 Genevieve Meza CHIEF ORTHOPTIST 03/20/2024 : Palliative care 04/17/2024 : Has noted a cough since about a week, got 'wet' in the rain, no fevers or chills, some wheezing is using her ventolin puffer, done with the z-pack given by Dr Michael BROWN, will start on augmentin 875mg po bid for 7 days, ER if worse, she is very appreciati ve and verbalized her understand ing of the above OV 07/24/2024 : Keep apt with Dorcas Corcoran OV 09/20/2024 : Needs to see pulmonary Dorcas Barr CHIEF ORTHOPTIST 10/18/2024 , to be on Symbicort, take Duonebs with Combivent, also on Otuvayre bid via nebs, to use her PAP and also started on prednisone She is also on Constipation 43456487 K5 9.00 On linzessDoe s well on this Pain of le ft knee joint 8012789944 [address] Roberth cali 07/15/2022 Jad CAMERON 03/31/2023 Screening for osteoporosis 966487135 Z13.820 Erythrocytosis 502253645 D75.1 Repeat the labs, needs to see Dr Douglas Skin lesion 45706277 L98 .9 Small very tender soft mobile cyst noted on the R anterior scalp just at the hair line, will get on augmentin, if not better then will need to see G surgery Skin tag 585455801 L91.8 Small skin tag noted on the L cheek and L lower eyelidRefe r to Dr Clark referred again 09/20/2024 , was told he does not remove the skin tag, refer to dermatolog y Hypokalemia 40033927 E87 .6 Is on KCheck K again, given by Dr Michael BROWN [id number] Aashish Bond, J LUIS [facility] [address] [place] [address] 12/25/2024 13:57:35 12/25/2024 17:52:16 Diabetes mellitus 54946144 E11.9 Continue with diabetic control per PCP recommenda tions Diabetic p eripheral neuropathy 078528989 E11.42 Continue gabapentin per PCP, may benefit from LyricaCont inue supportive shoe gearMonito r feet daily for wounds infectionF ollow-up in 6 months [id number] Maria A schneider MD [facility] [address] [facility], [address] [place] [address] 03/21/2025 09:24:20 03/21/2025 10:27:53 Type 2 diabetes mellitus without complication 559547138 E11.9 On glimepirid e 2mg dailyOn jardiance 10mg daily Dr Michael BROWN 04/13/2024 On toujeo 12U in am and 14U in pmOn trulicity 3mg weekly, has tolerated this well, she has denied any MEN2/MCT/P arathyroid or pancreatic complaints , should hydrate and take supplement s F/u with Dr Siddiqi referred 03/21/2025 Dr Bond podiatry Did see Dr Daniels 07/31/2021 Dr Daniels 03/23/2024 , now wants to see Dr [place], Screening - NAD 44525276 3 Z13.9 C-scope: 08/28/14: Dr. 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 on 06/10/2022 for bleeding from surgical site DEXA 08/20/19: Osteopenia , on vit d and caDEXA: 08/25/2021 : Osteopenia Ordered 06/02/2023 UTD flu shotUTD on PPV 23 12/17/2015 , does not want any more pneumonia vaccinesUT D Tdap last monthGet shingles if not doneUTD on COVID 19 vaccineCan do RSV vaccine RTC in 3 monthsDo labsER if any sx worsenshe did verbalize her understand ing of the above Hyperlipidemia 45204278 E78.5 On rosuvastat in 20mg daily, declined any new meds, can do rosuvastat in 40mg dailyGet labs Leukocytosis 727820257 D 72.829 80635743 Needs to see Dr Douglas Hypothyroidism 63344505 E03.9 05/01/18: US neck: R thyroid lobe nodule 05/30/18: She states that she has declined to get a biopsy, as she states Dr Villalba told her she did not need one as it is a very small nodule and will have another US in August ENT Dr Booth 05/03/19, no bx done, US done, one new nodule seen but not meeting criteria for biopsy, f/u in one year with US Did see Dr Astorga and is to get the US thyroid on 05/2020 S/p US thyroid 08/28/2020 : get another in one year S/p US thyroid 08/13/2021 : Next in one year On levothyrox ine 25mcgs, will change to unithroid 07/24/2024 Get labs US thyroid: 05/15/2024 Steatotic liver disease 132120473 K76.0 US abd/pelvis : 10/12/17: Fatty liver, advised to diet and exercise and declines any referral to hepatologi stCT abd 08/14/18, fatty liver Dr Adams 05/09/19, did recommend hep B vaccine 01/14/2020 : Dr Adams, Fibroscan to be done, worrisome for [facility] with hepatitis Needs to see Dr Adams as she states that she missed her last apt d/t not having a ride US liver 09/27/2023 Dr Adams 02/13/2024 Chronic ki dney disease 730716197 N18.9 On calcitriol 0.25mg bidOn vit d is now once a monthOn allopurino l 300mg daily Sees Dr Hurtado IJ Coronary arteriosclerosis 48551465 I25.10 On ASANot on pl[address] Dr Ross 04/27/2023 On eliquis but not taking thisOn lisinopril 2.5mg dailyOn metoprolol 25 mg bidNot on metolazone 2.5mg dailyOn NTGOn K 10meq dailyOn spironolac tone 25mg dailyOn K Er 20meq bidOn torasemide 100mg 1/2 tab bid 05/08/19: Dr Ross, s/p aortogram and stenting of subclavian , on ASA and plavix for 90 days: s/p angio, negative, Dr RossCT chest 08/21/2020 : [facility], next in one yearS/p AIF on 07/01/2020 S/p US UES/p US LE 04/14/2023 : Dr Brown 03/14/2023 Stress test 03/05/2025 US Arterial LE 04/14/2023 US Arterial UE 04/14/2023 Dr Ross 01/22/2022 , f/u in one month Dr Ross 03/03/2022 , f/u in 4 months, now on protonix Dr Ross 12/24/2022 , stopped the plavix and f/u in 3 monthsDr Ross 03/25/2023 Dr Knight 10/21/2023 Dr Ross 02/22/2025 , f/u in 3 months Gout 88792423 M10.9 On allopurino Soy calcium Gastroesop hageal reflux disease without esophagitis 286401275 K21.9 S/p EGD 11/22/18 09/24/2020 : Dr Goode, EGD: esophagiti s, moniliasis , gastritisD oes well now Neuropathy 075081120 G62 .9 On gabapentin 300mg bid, decreased to 100mg bid by her palliative nurse 08/17/2022 but is now only taking it daily She does have foot pain and was told to restart this by Dr Bond, f/u 02/28/2024 Rectal hemorrhage 540882 02 K62.5 Does well Does see Dr Turner Cyst of ovary 60584943 N 83.[address] Connelly of ovarySees OB [place] by Dr Hendrickson, is to see Jil Peters on 04/14/2020 04/14/2020 : Dr Peters: is to get more imaging and may need to get surgery for the jonny ovarian cysts as the CEA was elevated OV 08/27/2020 :She does see Dr Peters OV 11/26/2020 :She states that now she sees Sandra Daugherty OV 03/31/2021 :Get an apt with Kristina Daugherty OV 05/12/2021 :Does need to see Dr Peters OV 08/04/2021 :Needs to see Dr Peters, but she is very insistent that she does not want to see her anymoreDec lines any symptoms OV 02/02/2022 :No more complaints at this time OV 07/08/2022 : 2 to 05/18/2022 : admitted for abd pain, diagnosed with adnexal mass, readmitted and d/c 06/01 to 06/08/2022 , f/u with Dr Lisseth Peters OV 09/09/2022 :Now see a palliative RNSees Dr Peters OV 06/02/2023 :See Dr Turner 09/08/2023 :Sees Dr Lorraine Peters 09/26/2023 Dr Peters 04/03/2024 , f/u in 3 monthsS/p CT C/A/P [facility] 07/02/2024 : cystitis Dr Peters 10/08/2024 , next in 6 months, she to see her on 04/01/2025 as per her history today 03/21/2025 Chronic ob structive pulmonary disease 23590824 J44.9 On CPAPOn combiventO n HHNsOn singulairO n symbicortO n zyrtec PFT: 08/27/2021 LDCT 09/22/2021 : Next in one yearDorcas Barr CHIEF ORTHOPTIST next 09/13/2023 CT chest 10/27/2023 : Dorcas Mittal NPNow should see Dr Dorcas Barr CHIEF ORTHOPTIST again, referred 12/08/2023 Dr Fields: 02/02/2024 Genevieve Meza CHIEF ORTHOPTIST 03/20/2024 : Palliative care 04/17/2024 : Has noted a cough since about a week, got 'wet' in the rain, no fevers or chills, some wheezing is using her ventolin puffer, done with the z-pack given by Dr Michael BROWN, will start on augmentin 875mg po bid for 7 days, ER if worse, she is very appreciati ve and verbalized her understand ing of the above OV 07/24/2024 : Keep apt with Dorcas Corcoran OV 09/20/2024 : Needs to see pulmonary Dorcas Barr CHIEF ORTHOPTIST 10/18/2024 , to be on Symbicort, take Duonebs with Combivent, also on Otuvayre bid via nebs, to use her PAP and also started on prednisone Dorcas Barr CHIEF ORTHOPTIST 03/07/2025 , started on azithromyc in, 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 Constipation 16234460 K5 9.00 On linzessDoe s well on this Pain of le ft knee joint 0606679209 [address] Lepe last 07/15/2022 Jad Coleman PA 03/31/2023 Screening for osteoporosis 034456788 Z13.820 Erythrocytosis 094734384 D75.1 Repeat the labs, needs to see Dr Douglas Skin lesion 76333033 L98 .9 Small very tender soft mobile cyst noted on the R anterior scalp just at the hair line, will get on augmentin, if not better then will need to see G surgery Skin tag 864996757 L91.8 Small skin tag noted on the L cheek and L lower eyelidRefe r to Dr Clark referred again 09/20/2024 , was told he does not remove the skin tag, refer to dermatolog y Hypokalemia 21877016 E87 .6 Is on KCheck K again, given by Dr Michael BROWN Screening mammography 24 575702 Z12.31 74976135 Pain of le ft shoulder joint 0787238726 8511612 M25.512 187546 S/p fall, [facility] [id number] Dk Milligan MD [facility], [place] [address] 04/02/2025 13:38:40 04/02/2025 14:23:36 Pain of left shoulder region 2748665317 M25.512 46140966 [id number] Dk Milligan MD [facility]_[place] [address] 05/13/2025 09:08:53 05/13/2025 09:46:56 Pain of right shoulder region 0920462527 M25.511 97786935 [id number] Maria A cshneider MD [facility] Internal Med [address], [place] [address] 06/27/2025 09:22:48 06/27/2025 10:39:25 Screening - NAD 255426680 Z13.9 C-scope: 08/28/14: Dr. 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 on 06/10/2022 for bleeding from surgical site DEXA 08/20/19: Osteopenia , on vit d and caDEXA: 08/25/2021 : Osteopenia Ordered 06/02/2023 UTD flu shotUTD on PPV 23 12/17/2015 , does not want any more pneumonia vaccinesUT D Tdap last monthGet shingles if not doneUTD on COVID 19 vaccineCan do RSV vaccine RTC in 3 monthsDo labsER if any sx worsenshe did verbalize her understand ing of the above Type 2 kelly betes mellitus without complication 552018727 E11.9 On glimepirid e 2mg dailyOn jardiance 10mg daily Dr Michael BROWN 04/13/2024 , was renewed as per her request 06/27/2025 and confirmed to be renewed by personally d/w Dr Michael Westbrook toujeo 12U in am and 14U in pmNot on trulicity 3mg weekly, has tolerated this well, she has denied any MEN2/MCT/P arathyroid or pancreatic complaints , should hydrate and take supplement s Now on ozempic was given by Dr Devang Bond podiatry Did see Dr Daniels 07/31/2021 Dr Daniels 03/23/2024 , now wants to see Dr [place] S/p fall as per surgery note on 06/21/2025 with toe pain and fractureDr Mary Ellen 06/25/[address] Guevara, referred 06/27/2025 Hyperlipidemia 17367830 E78.5 On rosuvastat in 40mg dailyGet labs Leukocytosis 810840537 D 72.[id number] Douglas 05/28/2025 : F/u in 6 months Hypothyroidism 85486130 E03.9 05/01/18: US neck: R thyroid lobe nodule 05/30/18: She states that she has declined to get a biopsy, as she states Dr Villalba told her she did not need one as it is a very small nodule and will have another US in August ENT Dr Booth 05/03/19, no bx done, US done, one new nodule seen but not meeting criteria for biopsy, f/u in one year with US Did see Dr Astorga and is to get the US thyroid on 05/2020 S/p US thyroid 08/28/2020 : get another in one yearS/p US thyroid 08/13/2021 : Next in one yearUS thyroid: 05/15/2024 On levothyrox ine 25mcgs, will change to unithroid Get labs Steatotic liver disease 760770739 K76.0 US abd/pelvis : 10/12/17: Fatty liver, advised to diet and exercise and declines any referral to hepatologi stCT abd 08/14/18, fatty liver Dr Adams 05/09/19, did recommend hep B vaccine 01/14/2020 : Dr Adams, Fibroscan to be done, worrisome for [facility] with hepatitis Needs to see Dr Adams as she states that she missed her last apt d/t not having a ride US liver 09/27/2023 Dr Adams 02/13/2024 Dr Adams 02/11/2025 , f/u in one year Chronic ki dney disease 245259971 N18.9 On calcitriol 0.25mg bidOn vit d is now once a monthOn allopurino l 300mg daily Sees Dr Hurtado IJ Coronary arteriosclerosis 24457654 I25.10 On ASANot on plavix Dr Ross 04/27/2023 On eliquis but not taking thisOn lisinopril 2.5mg dailyOn metoprolol 25 mg bidNot on metolazone 2.5mg dailyOn NTGOn K 10meq dailyOn spironolac tone 25mg dailyOn K Er 20meq bidOn torasemide 100mg 1/2 tab bid 05/08/19: Dr Ross, s/p aortogram and stenting of subclavian , on ASA and plavix for 90 days: s/p angio, negative, Dr RossCT chest 08/21/2020 : [facility], next in one yearS/p AIF on 07/01/2020 S/p US UES/p US LE 04/14/2023 : Dr Brown 03/14/2023 Stress test 03/05/2025 US Arterial LE 04/14/2023 US Arterial UE 04/14/2023 Dr Ross 01/22/2022 , f/u in one monthDr Ross 03/03/2022 , f/u in 4 months, [facility] 12/24[facility] , stopped the plavix and f/u in 3 monthsDr Ross 03/25/2023 Dr Knight 10/21/2023 Dr Ross 02/22/2025 , f/u in 3 months Gout 23658657 M10.9 On allopurino Soy calcium Gastroesop hageal reflux disease without esophagitis 626997808 K21.9 S/p EGD 11/22/18 09/24/2020 : Dr Goode, EGD: esophagiti s, moniliasis , gastritisD oes well now Neuropathy 075630349 G62 .9 On gabapentin 300mg bid, decreased to 100mg bid by her palliative nurse 08/17/2022 but is now only taking it daily She does have foot pain and was told to restart this by Dr Bond, f/u 02/28/2024 Rectal hemorrhage 805527 02 K62.5 Does well Does see Dr Turner Cyst of ovary 50147819 N 83.[address] Gallagheryst of ovarySees OB [place] referred by Dr Hendrickson, is to see Jil Peters on 04/14/2020 04/14/2020 : Dr Peters: is to get more imaging and may need to get surgery for the jonny ovarian cysts as the CEA was elevated OV 08/27/2020 :She does see Dr Peters OV 11/26/2020 :She states that now she sees Sandra Daugherty OV 03/31/2021 :Get an apt with Kristina Daugherty OV 05/12/2021 :Does need to see Dr Peters OV 08/04/2021 :Needs to see Dr Peters, but she is very insistent that she does not want to see her anymoreDec lines any symptoms OV 02/02/2022 :No more complaints at this time OV 07/08/2022 : to 05/18/2022 : admitted for abd pain, diagnosed with adnexal mass, readmitted and d/c 06/01 to 06/08/2022 , f/u with Dr Lisseth Peters OV 09/09/2022 :Now see a palliative RNSees Dr Peters OV 06/02/2023 :See Dr Turner 09/08/2023 :Sees Dr Lorraine Peters 09/26/2023 Dr Peters 04/03/2024 , f/u in 3 monthsS/p CT C/A/P BJ 07/02/2024 : cystitis Dr Peters 04/01/2025 Chronic ob structive pulmonary disease 88300046 J44.9 On CPAPOn combiventO n HHNsOn singulairO n symbicortO n zyrtec PFT: 08/27/2021 LDCT 09/22/2021 : Next in one yearDorcas Barr CHIEF ORTHOPTIST next 09/13/2023 CT chest 10/27/2023 : Dorcas Mittal NPNow should see Dr Dorcas Barr CHIEF ORTHOPTIST again, referred 12/08/2023 Dr Fields: 02/02/2024 Genevieve Meza CHIEF ORTHOPTIST 03/20/2024 : Palliative care 04/17/2024 : Has noted a cough since about a week, got 'wet' in the rain, no fevers or chills, some wheezing is using her ventolin puffer, done with the z-pack given by Dr Michael BROWN, will start on augmentin 875mg po bid for 7 days, ER if worse, she is very appreciati ve and verbalized her understand ing of the above OV 07/24/2024 : Keep apt with Dorcas Corcoran OV 09/20/2024 : Needs to see pulmonary Dorcas Barr CHIEF ORTHOPTIST 10/18/2024 , to be on Symbicort, take Duonebs with Combivent, also on Otuvayre bid via nebs, to use her PAP and also started on prednisone Dorcas Barr CHIEF ORTHOPTIST 03/07/2025 , started on azithromyc in, 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 Dorcas Barr CHIEF ORTHOPTIST 05/06/2025 , to get on Yupelri and azithromyc in, but now takes symbicort Constipation [id number] K5 9.00 On linzessDoe s well on this Pain of le ft knee joint [id number] [address] Lepe last 07/15/2022 Jad Coleman PA 03/31/2023 Screening for osteoporosis [id number] Z13.820 Erythrocytosis [id number] D75.1 Repeat the labs, needs to see Dr Douglas Skin lesion [id number] L98 .9 Small very tender soft mobile cyst noted on the R anterior scalp just at the hair line, will get on augmentin, if not better then will need to see G surgery Skin tag [id number] L91.8 Small skin tag noted on the L cheek and L lower eyelidRefe r to Dr Clark referred again 09/20/2024 , was told he does not remove the skin tag Hypokalemia [id number] E87 .6 9791 Is on K, but was not taking the K renewed 06/27/2025 Check K again, given by Dr Michael BROWN Screening mammography 24 [id number] Z12.31 [id number] Pain of le ft shoulder joint [id number] M25.512 394064 S/p fall, [facility] a referral to orthoGet on meloxicam Sujatha Jorge CHIEF ORTHOPTIST 05/13/2025 , s/p steroid shot Hernia of anterior abdominal wall [id number] K43.9 9189 S/p surgery Dr Aldridge Wash U 05/21/2025 , f/u 06/21/2025 and f/u now in one year Adult [facility] th examination [id number] Z00.00 Screening for disorder [id number] Z13.9 [id number] Aashish Bond DPM [facility] [address] [phone] 06/25/2025 10:14:56 06/26/2025 16:40:14 Pain of toe of right foot [id number] 08708 M79.674 869884 minimal weight-aashish ringrice therapySup portive shoe gearObtain x-raysfoll ow-up x-rays [id number] Aashish Bond DPM [facility] [address] [place] [phone] 09/24/2025 09:22:38 09/26/2025 14:59:42 Pain of toe of right foot [id number] 79075 M79.674 395163 right 3rd toeminimal weight-aashish ringrice therapySup portive shoe gearObtain x-raysfoll ow-up x-rays Ingrowing toenail 066426 009 L60.0 1001 medial left great toenail debrided without incidentco ntinue to monitor if continues to be problemati c may require partial matrixecto my Type 2 kelly betes mellitus without complication [id number] E11.9 Z79.4 Continue with diabetic control per PCP recommenda tionsfollo w-up 3 months for diabetic foot care Health Concerns Section Related Observation LastModified by Organization Detai ls LastModified Time None Recorded Concern Status LastModified by Organization Details LastModified Time None Recorded Advance Directives Directive N: Information provided to manuel mcintosh. Payers Insurance Date Sequence Insurance Name Policy Number Policy Gates Covered Member ID Gates Member ID Guarantor Name 06/27/2025 2 [place] [employer] [place] PRIOR TO 2025 (MEDICAID REPLACEMENT - HMO) [id number] Tsering Parham [id number] Tsering Parham 06/27/2025 2 [place] PRIOR TO 2025 (MEDICAID REPLACEMENT - HMO) [id number] Tsering Parham [id number] Tsering Parham 09/21/2025 2 [place] WHEN MEDICARE OR MEDICARE REPLACEMENT PRIMARY) Tsering Parham [id number] Tsering Parham 09/21/2025 1 [facility] (MEDICARE REPLACEMENT/AD VANTAGE - PPO) [id number] Tsering Parham [id number] Tsering Parham 06/27/2025 2 [place] [employer] [place] PRIOR TO 2025 (MEDICAID REPLACEMENT - HMO) [id number] Tsering Parham [id number] Tsering Parham 06/27/2025 2 [place] [employer] [place] PRIOR TO 2025 (MEDICAID REPLACEMENT - HMO) [id number] Tsering Parham [id number] Tsering Parham Notes Date Note Type Note Provider Name and Address Organization Details Recorded Time 06/25/2025 text/html . Patient is a 70-year-old female she returns for follow-up on diabetic foot care and complaints of injury to her right 3rd toe she states that this happened a couple weeks ago she had swelling of the toe and pain she states that she is concerned that the toe is changed positioning and slightly deviates towards the 2nd toe. Patient is concerned due to the continued pain that she may have broke the toe. Patient denies any other complaints and has pain with weight-bearing. Aashish Bond, DPM [address] [facility], [address], [place], [address], [place] [facility] 06/25/2025 14:11:06 06/27/2025 text/html 11/20/16Here to establish careMnst PMD:Dr Ballesteros Hx:CADGERDAsthmaDMIII BSNeuropathyDepressio nHyperthyrodismEx-smo BozenaergiesReviewed her social family and surgical historyHere as a Dr Phillips transfer for an ACVShe states that she has had some issues with her abd especially when she eats, she has had IBS and she takes Linzess and this helps, she states that she has had that for a yearShe states that when she eats she feels a hard knot on top of the stomach, sometimes it hurts, and no N/V, no blood in the stools and blood from her mouthNo fevers or chills,She feels that the appetite is not that well OV 10/04/17:Here for her 2 week apt, states that she is doing well at this timeShe states that she has had some swelling and pain in the R side of the clavicular area, she would like to get an xray for this OV 10/13/17:Here to discuss her blood sugars, but she states that she does not want to start on any insulinShe did have a fracture of the L IF yesterday OV 10/27/17:Here to discuss her K issues, she also states that she does not want to see a 'liver doctor' and she also wants to discuss her thyroid noduleShe is also c/o cramping chest pain and hand pain, this is not like the chest pain she has had, it feels that it 'cramps' up the lower chest and back and then goes to the legs, she denies any SOB, PALENCIA, presyncope or syncope, no palpitations, no headaches, this is not related to activity and denies any chest pain at presentOV 12/08/17:Here for her routine labsShe did do the labs and does have some URI symptomsFeels that she has a URIHas horseness and feels that she has cough that is greenNo fevers or chillsNo bloody sputumNo rashesNo sinus headaches does have sinus congestionNo diarrhea, no N/VNo chest pain or SOBNo wheezingOV 01/03/18:Here for her DM appointment, she states that she did do the ACCU and they are in the 90sDoing well otherwiseOV 02/16/18:ACV:Here with URIOngoing for about a weekC/o cough with 'light green mucus'No blood in sputumNo chest painNo SOBNo rashNo N/V or diarrheaNo blood in stoolFeels that the head is 'congested'OV 03/14/18:ACV:Here with URIC/o coughNo blood in sputumNo chest painNo SOBNo rashNo N/V or diarrheaNo blood in stool OV 05/09/18:Here for her report on the bx done on the fatty tumor and also the US on the thyroid, this was done by Dorcas Mittal CHIEF ORTHOPTIST as a part of CT chest and then followed up with a US thyroid done on 05/01/18OV 05/30/18:ACV:Here with URI sxC/o coughProductive with greenish sputum, no bloodNo chest pain, no SOBNo N/V or diarrheaNo fevers or chillsFeels tiredNo rashNo headachesOV 06/20/18:Here for her routine aptShe feels that she is doing well at this timeShe did do the labs on 06/19/18till has some URI sx with dark green cough, no blood, no chest pain, no SOB, no wheezingOV 08/08/18:ACV:Here with c/o N/ VAlso has had some diarrheaNo blood in the stoolShe has also noted some cough, no fevers or chillsHas has a normal appetite and normal hydrationOV 09/19/18:Here for her 3 month aptShe states that she is doing wellShe did do the labs on 09/14/18 and on 09/08/18he is very confused about her medication list at this time OV 09/26/18:Here for her apt to go over her medicationsShe is doing well otherwiseHas noted some URI sxGreenish sputum, no bloodNo chest painNo SOBNo blood in the nose OV 11/23/18:Here for her routine aptShe feels that she is doing well at this timeShe did do the labs on 10/30/18OV 12/21/18:Here for her routine aptShe states that she did do the diabetes teaching with Sandra Bhandari would like to get some trulicity samples and feels that this is helping herShe has done labs on 12/04/18 and is here to review theseOV 03/20/19:Here for her routine aptShe states that she is doing wellShe did do the labs on 02/26/[address] Dominguez is to get a PFT also and see various MDsOV 06/19/19:Here for her routine aptShe did do the labsShe is to see Dr Ross tomorrow at 1.15 pmIs doing well other wiseOV 08/14/19:Here for routine aptShe did see Kristina and her Dr Siddiqi, she states that she is not on the glipizide and is now on another medicationAlso has a cough with greenish sputumHas had this for 3 weeksShe also has a headache hit her head on the car, in 07/02No syncope or presyncopeAlso has R leg pain, hit her leg on a potty seatNo limping gaitAlso need pull ups for fecal incontinence OV 09/18/19:Here for ACVC/o URI symptomsShe is on augmentin, still has some hoarsenessNo fevers or chillsNo chest pain or SOBShe does have some wheezingShe also has some nausea some vomitingNo blood in stool or urine OV 11/27/2019:Here for her routine 3 month aptShe states that she is doing well at this time, still has some coughShe did do the labs on 11/20/2019 and is here to review these OV 02/26/2020:televisit, she is agreeable to do the televisitShe still has some bleeding in the rectumShe feels well at this timeShe did do the labsOV 06/25/2020:Here for her routine aptShe is doing wellShe has to see nephrologyShe did do the labsOV 08/27/2020:Here for her routine aptShe did see Dr Siddiqi and has done new labs, she is now on tujeo and trulicityShe has also had a procedure done on the legs thru [facility]OV 10/01/2020:ACV:Tele visit and is agreeable to do the televisitSelisabeth is concerned for exposure to COVID 19 thru her transmitter supervisor 2 days agoOV 11/26/2020:Here for her routine aptShe feels well, but does have a 'itch' in the urineShe denies any fevers or chillsNo N/VNo blood in the urineShe has done her labs and is here to review theseOV 03/31/2021:Here for her routine aptShe is doing wellSelisabeth did do the labs for the kidney MDShe does c/o L knee painSince 2 weeks, states that she twisted the knee in her sleepPain is sharp and located on the either sides of the kneeHurts to walk OV 05/12/2021:Here for her 6 week aptShe does feel well, she has a wound to her wrist and this is healing nowShe did see Dr Siddiqi, and has also seen Dr Lepe , Dr Bond and Dorcas Barr CHIEF ORTHOPTIST and does have f/u apts with themOV 08/04/2021:Here for her routine aptShe feels wellSelisabeth did do the labs 07/21/2021OV 02/02/2022:Here for her routine aptShe is doing well, she is wondering about the diureticsShe is to get MWV alsoKime did do the labs on 2OV 07/08/2022:Here for her f/u apt, she feels well but now has been diagnosed with ovarian cancer, she did do the labs on 06/21/2022, is to now get chemoRxOV 09/09/2022:Here for her f/u apt, she is doing well today, did do the labs on 2OV 01/06/2023:Here for her routine apt, she feels well, did see Dr Siddiqi and Dr Peters OV 06/02/2023: Here for her f/u apt, has some URI sx with cough, greenish sputum, no blood, no chest pain, no SOB, no wheezing , no new labs, last labs 02/17/2023, but she did state that she did the labs with Dr Hurtado IJ OV 09/08/2023: Here for her f/u apt. she is doing well, still has some URI sx with whitish 'phlegm', No fevers or chillsNo chest pain or SOBShe does have some wheezingShe also has some nausea some vomitingNo blood in stool or urine OV 12/08/2023: Here for her f/u apt, she does c/o some UTI sx, some dysuria, no hematuria, no fevers or chills OV 04/17/2024: Here for her routine apt, C/o coughProductive with greenish sputum, no bloodNo chest pain, no SOBNo N/V or diarrheaNo fevers or chills , she did do the labs OV 07/24/2024: Here for her f/u apt, she is doing well today, does have dysuria and hesitancy, no fevers or chills, no gross hematuria, was treated recently by Dr Cobos for a UTI, wants to get another antibiotic, she did do the labs OV 09/20/2024: Here for her f/u apt, she feels well, she did do the labs OV 12/20/2024: Here for her f/u apt, she is doing well, no recent labs OV 03/21/2025: Here for her 3 month apt, she did have a fall last week and was seen in the ER, she states that she tripped and landed on her L shoulder on 03/19/2025, xrays were negative, now has dull ache in the L shoulder, no N/T or weakness in the L shoulderShe did do the labs OV 06/27/2025: Here for her f/u apt and MWV, is doing well today Maria A Reynolds MD [address] [place] [address], [facility], [place], [address], [place] [facility] 06/27/2025 14:03:32 09/24/2025 text/html patient here for diabetic foot exam. no issues. dr. schwarz is pcp and last seen on 06/27/25. Patient is a 70-year-old female diabetic who returns the office for diabetic foot care. Patient overall is doing well she denies any open wounds. Patient states she did stub her right 3rd toe a couple months ago and she has been having some continued pain in the toe. Patient has no swelling or bruising of the toe. Patient on x-ray on 01/21/2024 has no history of fracture. Patient states she also has pain and a incurvated nail border to the left medial great toe she denies any redness but has pain with palpation. Patient is unable to cut the toenail. Patient is worried she might develop an infection due to the incurvated nail corner and would like to have a cut-out. Patient denies any other complaints. Aashish Bond DPM [address] [address], [place], [address], [place] [facility] 09/24/2025 10:05:39 OBGyn Episode No OBEpisode recorded.
--- OUTSIDE RECORDS SUMMARY | 2025-10-04 12:55 | XMS_ITS | Patient Health Record ---
Demographics Address [facility] [address] [place] [id number] Mobile Preferred Language Unknown Marital Status Unknown Taoism Affiliation Unknown Race Unknown Ethnic Group Unknown Author Organization [facility] Address [address] [place], [place] [address] Care Team Providers Care Varnisher Name Role Phone Vicky Siddiqi Unavailable [phone] Allergies No Known Allergies Results Component Value Reference Range Flag Notes .COMPREHENSIVE METABOLIC CARRION EL ([id number]) CMP Reviewed date:08/11/2025 12:55:11 PM Interpretation: Performing Lab:CAROL [facility] CorporationScot[facility] HospitalXpkbk[address] [facility] CenterPqwgevbHL[address] [facility] Notes/Report: FASTING:YES COLLECTION KIT GIVEN TO PATIENT. PATIENT ADVISED TO RETURN. URINE VOLUME: 2000 FASTING: YES GLUCOSE 164 65-99 mg/dL H diabetes and this should be confirmed with a Fasting reference interval follow-up test. value >125 mg/dL indicates that they may have For someone without known diabetes, a glucose UREA NITROGEN (BUN) 30 7-25 mg/dL H CREATININE 1.38 0.50-1.05 mg/dL H EGFR 41 > OR = 60 mL/min/1.73m2 L BUN/CREATININE RATIO 22 6-22 (calc) N SODIUM 135 135-146 mmol/L N POTASSIUM 3.4 3.5-5.3 mmol/L L CHLORIDE 93 98-110 mmol/L L CARBON DIOXIDE 31 20-32 mmol/L N CALCIUM 9.9 8.6-10.4 mg/dL N PROTEIN, TOTAL 6.8 6.1-8.1 g/dL N ALBUMIN 4.3 3.6-5.1 g/dL N GLOBULIN 2.5 1.9-3.7 g/dL (calc) N ALBUMIN/GLOBULIN RATIO 1.7 1.0-2.5 (calc) N BILIRUBIN, TOTAL 0.5 0.2-1.2 mg/dL N ALKALINE PHOSPHATASE 76 37-153 U/L N AST 23 10-35 U/L N ALT 25 6-29 U/L N MAGNESIUM (622) Reviewed date:08/11/2025 12:55:12 PM Interpretation: Performing Lab:CAROL [facility] CorporationJ[place] [address] [address] [place] [address] Notes/Report: FASTING:YES COLLECTION KIT GIVEN TO PATIENT. PATIENT ADVISED TO RETURN. URINE VOLUME: 1999 FASTING: YES MAGNESIUM 2.3 1.5-2.5 mg/dL N .LIPID PANEL, STANDARD (7600 ) Reviewed date:08/11/2025 12:55:12 PM Interpretation: Performing Lab:CAROL [facility] CorporationJ[place] [address] [address] [place] [address] Notes/Report: FASTING:YES COLLECTION KIT GIVEN TO PATIENT. PATIENT ADVISED TO RETURN. URINE VOLUME: 1999 FASTING: YES CHOLESTEROL, TOTAL 115 <200 mg/dL N HDL CHOLESTEROL 52 > OR = 50 mg/dL N TRIGLYCERIDES 152 <150 mg/dL H LDL-CHOLESTEROL 40 N Reference range: <100 estimation of LDL-C. LDL-C is now calculated using the CaseySilva RUSHING et al. OLEKSANDR. 2013;310(19): 7926-5281 <70 mg/dL for patients with CHD or diabetic patients calculation, which is a validated novel method providing Desirable range <100 mg/dL for primary prevention; with > or = 2 CHD risk factors. better accuracy than the Friedewald equation in the (http://education.Roomer Travel/faq/ITM834) CHOL/HDLC RATIO 2.2 <5.0 (calc) N NON HDL CHOLESTEROL 63 <130 mg/dL (calc) N For patients with diabetes plus 1 major ASCVD risk option. factor, treating to a non-HDL-C goal of <100 mg/dL (LDL-C of <70 mg/dL) is considered a therapeutic .CBC (INCLUDES DIFF/PLT) (63 99) Reviewed date:08/11/2025 12:55:12 PM Interpretation: Performing Lab:CAROL [facility] CorporationJ[place] [address] [address] [place] [address] Notes/Report: FASTING:YES COLLECTION KIT GIVEN TO PATIENT. PATIENT ADVISED TO RETURN. URINE VOLUME: 1999 FASTING: YES WHITE BLOOD CELL COUNT 12.1 3.8-10.8 Thousand/uL H RED BLOOD CELL COUNT 5.21 3.80-5.10 Million/uL H HEMOGLOBIN 14.7 11.7-15.5 g/dL N HEMATOCRIT 47.0 35.0-45.0 % H MCV 90.2 80.0-100.0 fL N MCH 28.2 27.0-33.0 pg N MCHC 31.3 32.0-36.0 g/dL L condition. For adults, a slight decrease in the calculated MCHC not clinically significant; however, it should be red cell parameters and the patient's clinical value (in the range of 30 to 32 g/dL) is most likely interpreted with caution in correlation with other RDW 14.5 11.0-15.0 % N PLATELET COUNT 264 140-400 Thousand/uL N MPV 10.8 7.5-12.5 fL N ABSOLUTE NEUTROPHILS 8869 4104-6788 cells/uL H ABSOLUTE LYMPHOCYTES 2239 850-3900 cells/uL N ABSOLUTE MONOCYTES 774 200-950 cells/uL N ABSOLUTE EOSINOPHILS 169 15-500 cells/uL N ABSOLUTE BASOPHILS 48 0-200 cells/uL N NEUTROPHILS 73.3 N LYMPHOCYTES 18.5 N MONOCYTES 6.4 N EOSINOPHILS 1.4 N BASOPHILS 0.4 N .HEMOGLOBIN A1c (496) Reviewed date:08/11/2025 12:55:12 PM Interpretation: Performing Lab:CAROL Sphera CorporationSt [address] [facility] CenterAhdrlfxFG[address] Andra Macias Notes/Report: FASTING:YES COLLECTION KIT GIVEN TO PATIENT. PATIENT ADVISED TO RETURN. URINE VOLUME: 2000 FASTING: YES HEMOGLOBIN A1c 6.6 <5.7 % of total Hgb H greater than or equal to 7% indicates suboptimal that their diabetes is well controlled and a value Currently, no consensus exists regarding use of value of 6.5% or greater indicates that they may have duration of diabetes, age, comorbid conditions, and control. A1c targets should be individualized based on other considerations. For someone without known diabetes, a hemoglobin A1c hemoglobin A1c for diagnosis of diabetes for children. For someone with known diabetes, a value <7% indicates test. diabetes and this should be confirmed with a follow-up C-PEPTIDE (372) Reviewed date:08/11/2025 12:55:12 PM Interpretation: Performing Lab:GRANT [employer] [place]-Urppiv[address] Allan SummersaKS[address] Andra Macias MD Notes/Report: FASTING:YES COLLECTION KIT GIVEN TO PATIENT. PATIENT ADVISED TO RETURN. URINE VOLUME: 1999 FASTING: YES C-PEPTIDE 15.03 0.80-3.85 ng/mL H T4, FREE (866) Reviewed date:08/11/2025 12:55:12 PM Interpretation: Performing Lab:Christina MEDINAMonique [place] [id number] [address] [place] [address] PepperRukhsana Macias Notes/Report: FASTING:YES COLLECTION KIT GIVEN TO PATIENT. PATIENT ADVISED TO RETURN. URINE VOLUME: 1999 FASTING: YES T4, FREE 1.4 0.8-1.8 ng/dL N TSH (899) Reviewed date:08/11/2025 12:55:12 PM Interpretation: Performing Lab:Christina MEDINAJenna [place] [address] [address] [place] [address] PepperRukhsana Macias Notes/Report: FASTING:YES COLLECTION KIT GIVEN TO PATIENT. PATIENT ADVISED TO RETURN. URINE VOLUME: 1999 FASTING: YES TSH 0.25 0.40-4.50 mIU/L L T3, FREE ([id number]) Reviewed date:08/11/2025 12:55:12 PM Interpretation: Performing Lab:Christina BURNS-Snhbmz76984 Candelario SummersQymtvmJC[address] Andra Macias MD Notes/Report: FASTING:YES COLLECTION KIT GIVEN TO PATIENT. PATIENT ADVISED TO RETURN. URINE VOLUME: 1999 FASTING: YES T3, FREE 3.1 2.3-4.2 pg/mL N ACTH, PLASMA (211) Reviewed date:08/14/2025 01:37:18 PM Interpretation: Performing Lab:Christina BROWER/Ángela BarksdaleApolonia [id number] [facility] , OyhwxbgevEW[address] James Novak M.D.,PhD Notes/Report: FASTING:YES COLLECTION KIT GIVEN TO PATIENT. PATIENT ADVISED TO RETURN. URINE VOLUME: 1999 FASTING: YES ACTH, PLASMA 10 6-50 pg/mL between 7am-10am. Reference range applies only to specimens collected CORTISOL, TOTAL (367) Reviewed date:07/06/2025 09:27:35 PM Interpretation: Performing Lab:Christina BURNSa101Allan MaldonadoaKS[address] Andra Macias MD Notes/Report: FASTING:YES FASTING: YES CORTISOL, TOTAL 2.4 L Reference Range: For 4 p.m.(3-5 p.m.) Specimen: 3.0-17.0 * Please interpret above results accordingly * Reference Range: For 8 a.m.(7-9 a.m.) Specimen: 4.0-22.0 DEXAMETHASONE ([id number]) Reviewed date:07/15/2025 10:26:16 AM Interpretation: Performing Lab:EZ [employer]/[email or web address] [facility],[address] [facility] CenterCA[address] Stephanie Conner MD,PhD,[place] Notes/Report: FASTING:YES FASTING: YES DEXAMETHASONE 651 1 mg dexamethasone overnight: 180-550 ng/dL (8:00-10:00 AM) characteristics have been determined by [facility]. This test was developed and its analytical performance Baseline: Less than 20 ng/dL has been validated pursuant to the CLIA regulations and is It has not been cleared or approved by the FDA. This assay Reference Ranges for Dexamethasone: used for clinical purposes. CORTISOL, LC/MS, SALIVA, 2 S AMPLES ([id number]) Reviewed date:08/21/2025 12:47:24 PM Interpretation: Performing Lab:MEDINA [employer] [place]/[email or web address] [facility],[address] [facility] CenterCA[address] Stephanie Conner MD,PhD,DIE[place] Notes/Report: SPLIT 08/08/2025 FROM [id number] FASTING:NO URINE VOLUME: FASTING: NO DRAW DATE 1 08/11/2025 DRAW TIME 1 0920AM CORTISOL, SALIVA SAMPLE 1 0.20 characteristics have been determined by [facility]. 4-6 PM: < OR = 0.15 mcg/dL 10 PM-1 AM: < OR = 0.09 mcg/dL This test was developed and its analytical performance has been validated pursuant to the CLIA regulations and is noon-2 PM: < OR = 0.21 mcg/dL used for clinical purposes. It has not been cleared or approved by the FDA. This assay 8-10 AM: 0.04-0.56 mcg/dL DRAW DATE 2 08/12/2025 DRAW TIME 2 0715AM CORTISOL, SALIVA SAMPLE 2 0.24 used for clinical purposes. 10 PM-1 AM: < OR = 0.09 mcg/dL has been validated pursuant to the CLIA regulations and is 4-6 PM: < OR = 0.15 mcg/dL This test was developed and its analytical performance noon-2 PM: < OR = 0.21 mcg/dL characteristics have been determined by [employer]. It has not been cleared or approved by the FDA. This assay 8-10 AM: 0.04-0.56 mcg/dL CORTISOL, FREE, 24 HOUR URIN E ([id number]) Reviewed date:08/19/2025 08:31:42 PM Interpretation: Performing Lab:[facility] [employer]/[email or web address] [facility],[address] [facility] CenterCA[address] Stephanie Conner MD,PhD,[place]GO Notes/Report: SPLIT 08/08/2025 FROM [id number] FASTING:NO URINE VOLUME: 2000/24 FASTING: NO TOTAL VOLUME 2000 CORTISOL, FREE, URINE 6.8 4.0-50.0 mcg/24 h CORTISOL, FREE, URINE 9.0 Reference Range: ADULTS: 3.1-42.3 CREATININE, URINE 0.75 0.50-2.15 g/24 h used for clinical purposes. It has not been cleared or approved by the FDA. This assay has been validated pursuant to the CLIA regulations and is characteristics have been determined by [employer]. This test was developed and its analytical performance DEXAMETHASONE ([id number]) Reviewed date:08/22/2025 07:55:56 PM Interpretation: Performing Lab:MEDINA [employer]/[email or web address] [facility],[address] [facility] CenterCA[address] Stephanie Conner MD,PhD,D[place]GO Notes/Report: FASTING:YES FASTING: YES DEXAMETHASONE 640 has been validated pursuant to the CLIA regulations and is Reference Ranges for Dexamethasone: 1 mg dexamethasone overnight: 180-550 ng/dL (8:00-10:00 AM) characteristics have been determined by [employer]. used for clinical purposes. This test was developed and its analytical performance Baseline: Less than 20 ng/dL It has not been cleared or approved by the FDA. This assay CORTISOL, TOTAL (367) Reviewed date:08/14/2025 01:37:18 PM Interpretation: Performing Lab:GRANT, [employer]-Akblxj21109 Anderson Maykelarmani, JbirvcWJ[address] Andra Macias MD Notes/Report: FASTING:YES FASTING: YES CORTISOL, TOTAL 2.0 L The Cortisol result may be decreased on average 10-20% Reference Range: For 4 p.m.(3-5 p.m.) Specimen: 3.0-17.0 method due to a recent quality improvement relative to results previously obtained with this Reference Range: For 8 a.m.(7-9 a.m.) Specimen: 4.0-22.0 made in June 2025 by the reagent sheet metal work furnace installer. * Please interpret above results accordingly * Reason For Referral No Information Medications Medication SIG (Take, Route, Frequency, Duration) Notes Start Date End Date Status Linzess 290 MCG Capsule TAKE 1 CAPSULE BY MOUTH DAILY Oral; Duration: 90 Days Active Ipratropium [place] 06/24/2025 Active Dexcom G7 Sensor - Miscellaneous as directed every 10 days; Duration: 90 days 09/03/2025 Active Gabapentin 300 MG Capsule TAKE 1 CAPSULE BY MOUTH TWICE DAILY Oral; Duration: 90 Days Active Levothyroxine Sodium taking 25 m cg daily 06/24/2025 Active Toujeo SoloStar 300 UNIT/ML Solution Pen-injector INJECT UP TO 12 UNITS EVERY MORNING AND INJECT 14 UNITS EVERY NIGHT AT BEDTIME Subcutaneous; Duration: 75 Days Active Lisinopril 06/24/2025 Active Nitroglycerin 0.4 MG Tablet Sublingual Sublingual; Duration: 10 Days Active Metoprolol Succinate 06/24/2025 Active Albuterol Sulfate HFA 108 (90 Base) MCG/ACT Aerosol Solution INHALE 2 PUFFS BY MOUTH EVERY 4 HOURS NEEDED FOR WHEEZING Inhalation; Duration: 16 Days Active Montelukast Sodium 06/24/2025 Active Allopurinol 300 MG Tablet Oral; Duration: 90 Days Active Pantoprazole Sodium 40 MG Tablet Delayed Release TAKE 1 TABLET BY MOUTH EVERY DAY Oral; Duration: 90 Days Active Calcitriol 0.25 MCG Capsule Oral; Duration: 90 Days Active Potassium 06/24/2025 Active Torsemide 100 MG Tablet Oral; Duration: 90 Days Active Ozempic (0.25 or 0.5 MG/DOSE) 2 MG/3ML Solution Pen-injector 0.5 mg Subcutaneous once a week; Duration: 90 days 06/24/2025 Active BD Pen Needle Meg 2nd Gen 32G X 4 MM Miscellaneous USE WITH INSULIN INJECTIONS TWICE DAILY; Duration: 90 Days Active Dexcom G7 Sensor - Miscellaneous as directed every 10 days; Duration: 90 days 06/24/2025 Active Jardiance 10 MG Tablet Oral; Duration: 3 0 Days Active Rosuvastatin Calcium 20 MG Tablet TAKE 1 TABLET BY MOUTH EVERY DAY Oral; Duration: 90 Days Active Fluticasone Propionate 50 MCG/ACT Suspension SHAKE LIQUID AND USE 2 SPRAYS IN EACH NOSTRIL DAILY Nasal; Duration: 90 Days Active Aspirin 81 81 MG Tablet Delayed Release 1 tablet Orally Once a day; Duration: 30 day(s) 06/24/2025 Active Social History Section Notes: Non-Contributory Problems Problem Type SNOMED Code ICD Code Onset Dates Problem Status W/U Status Risk Notes Problem Hyperglycemia due to type 2 diabetes mellitus (341498494099160) Type 2 diabetes mellitus with hyperglycemia (E11.65) Active confirmed Problem Disorder of adrenal gland (49756933) Disorder of adrenal gland, unspecified (E27.9) Active confirmed Problem Long-term current use of insulin (044529698) 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 (Z79.4) Active confirmed Problem Dyslipidemia (006836845) Dyslipidemia (E78.5) Active confirmed Problem Obesity (044252091) Obesity (BMI 30-39.9) (E66.9) Active confirmed Problem 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 [address] [place] [phone] 09/06/2025 Vicky Siddiqi [facility] Dr. Siddiqi [address] [place] [phone] 09/09/2025 Vicky Siddiqi Assessments Encounter Date Diagnosis (ICD Code) Assessment Notes Treatment Notes Treatment Clinical Notes Section Notes 06/24/2025 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 (ICD-10 - Z79.4) 06/24/2025 Type 2 diabetes mellitus with hyperglycemia (ICD-10 - E11.65) 08/05/2025 Type 2 diabetes mellitus with hyperglycemia (ICD-10 - E11.65) will transition to freestyle elias 3 sensors as her dexcom is not staying in place and insurance will not provide coverage for all the defective sensors. She was reminded to contact the sheet metal work furnace installer and given number to call. She was advised to increase ozempic to 0.5 mg weekly and continue toujeo and continue monitoring. Will continue workup for high cortisol-given orders for urinary and salivary cortisol testing. 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 (ICD-10 - E06.3) 08/05/2025 Hypothyroidism due to Avelina thyroiditis (ICD-10 - E06.3) send for thyroid panel 06/24/2025 Hypothyroidism due to Avelina thyroiditis (ICD-10 - E06.3) 09/03/2025 Disorder of adrenal gland, unspecified (ICD-10 - E27.9) 08/05/2025 care home (current) use of insulin (ICD-10 - Z79.4) CGM reviewed and in range 81% of time with CGI of 6.9% 09/03/2025 Dietary counseling and surveillance (ICD-10 - Z71.3) Spent 15 minutes preventative counseling patient on dietary recommendations and changes in setting of hyperglycemia- need to restrict refined sugars and processed foods and incorporate up to 150 minutes of moderate level activity weekly. 08/05/2025 Dietary counseling and surveillance (ICD-10 - Z71.3) Spent 15 minutes preventative counseling patient on dietary recommendations and changes in setting of hyperglycemia- need to restrict refined sugars and processed foods and incorporate up to 150 minutes of moderate level activity weekly. 06/24/2025 Dietary counseling and surveillance (ICD-10 - Z71.3) Spent 15 minutes preventative counseling patient on dietary recommendations and changes in setting of hyperglycemia- need to restrict refined sugars and processed foods and incorporate up to 150 minutes of moderate level activity weekly. 09/03/2025 Neurologic abnormality (ICD-10 - R29.818) 30 second sit and stand test was suboptimal at 8 in 30 seconds indicative of poor muscle function and weakness as would be expected in hypercortisolism. Expected score would be 11 to 16 in her age group so patient is under expectations. 06/24/2025 Loli Cagle is a female patient [...] with pharmacy for insurance coverage - Discussed [employer] patient assistance program as a backup option- Continue Toujeo insulin at current doses (13 units AM, 15 units PM)- Initiate continuous glucose monitoring - Provided [employer] G7 sensor and reader device as patient doesn't have a compatible cell phone - Educated patient on sensor application, use of reader, and interpretation of results - Instructed to change sensor every 10 days- Follow up in 4-6 weeks Cardiovascular DiseaseAssessment: Patient has a history of myocardial infarction and coronary artery stents. Currently followed by a silk screen etcher. No recent cardiac symptoms reported.Plan:- Continue current [...] Instructed patient to schedule blood draw with [facility] Thyroid NoduleAssessment: Previous ultrasound from May 2024 showed a 0.8 cm nodule in the right posterior thyroid. Given the small size, no immediate intervention is required.Plan:- Continue monitoring; no immediate biopsy indicated due to small size Peripheral NeuropathyAssessmen t: Patient reports numbness in feet, which may [...] examination and/or evaluation, counseling and educating the patient/family/care transport nurse, ordering medications, tests, or procedures, referring and communicating with other health physician locums urgent care, documenting clinical information in the electronic or other health record, independently interpreting results and communicating results to the patient/family/care transport nurse and care coordinating patient plan. Patient alert and oriented x 4 and aware of discussion noted above and in agreeance to plan in management of uncontrolled type 2 dm/treatment resistant, hypertension, dyslipidemia, hx of heart disease, hypothyroidism and concern for hypercortisolism. 08/05/2025 Loli Cagle, a patient with long-standing diabetes, presents for follow-up of Ozempic treatment, with concerns about elevated blood glucose levels and weight management. Type 2 Diabetes MellitusAssessment: Patient reports suboptimal glycemic control despite current medication regimen including Ozempic, glimepiride, Jardiance, and insulin. Recent A1c is 6.9% (30-day average) to 7.1% (14-day average), with average glucose ranging from 150-156 mg/dL. Patient reports frequent hyperglycemia, with a recent post-prandial glucose of 142 mg/dL after consuming high-carbohydrate snacks. No hypoglycemic episodes reported. Continuous glucose monitoring shows 81% time in range over 90 days. Patient admits to poor dietary habits, stating I eat what I want because I know it ain't gonna change. Current Ozempic dose may be subtherapeutic as patient denies feeling full after administration.Plan :- Increase Ozempic to 0.5 mg subcutaneously weekly if tolerated (no significant nausea/vomiting)- Continue glimepiride (sliding scale before breakfast and dinner, do not take if blood glucose [id number] mg/dL)- Continue Jardiance- Continue insulin- Continue CPAP use for sleep apnea- Educate on importance of dietary modifications for glycemic control- Follow up on lab results and adjust treatment plan accordingly Suspected HypercortisolismAss essment: Recent cortisol level of 2.4 (cutoff 1.8) suggests possible hypercortisolism, which may be contributing to poor glycemic control and weight management issues. Patient reports good sleep patterns but has a history of sleep apnea requiring CPAP. Further evaluation is necessary to confirm diagnosis and determine appropriate management.Plan:- Order additional cortisol studies- Evaluate need for referral to endocrinology for further workup and potential treatment with cortisol blockers if hypercortisolism is confirmed- Discuss potential benefits of cortisol management, including possible reduction or elimination of insulin therapy Chronic EmesisAssessment: Patient reports a long-standing history of vomiting, frequency unclear. This symptom may be related to Ozempic use or could indicate an underlying gastrointestinal condition. Previous referral to gastroenterology (Dr. Alex Mcgill) noted, but current status of evaluation unclear.Plan:- Follow up on status of gastroenterology evaluation with Dr. Alex Mcgill- Monitor for exacerbation of symptoms with Ozempic dose increase- Consider alternative GLP-1 receptor agonists if vomiting persists or worsens Continuous Glucose Monitoring Device IssuesAssessment: Patient reports frequent detachment of Dexcom sensors, leading to inadequate supply and potential gaps in glucose monitoring data.Plan:- Provide Dexcom customer service contact information for replacement sensors- Explore insurance coverage for FreeStyle Elias as an alternative CGM system if Dexcom issues persist- Educate on proper sensor application and maintenance techniques Spent 25 minutes preparing to see the patient (ex review of tests/chart), obtaining and / or reviewing separately obtained history, performing a medically appropriate examination and/or evaluation, counseling and educating the patient/family/care transport nurse, ordering medications, tests, or procedures, referring and communicating with other health physician locums urgent care, documenting clinical information in the electronic or other health record, independently interpreting results and communicating results to the patient/family/care transport nurse and care coordinating patient plan. Patient alert and oriented x 4 and aware of discussion noted above and in agreeance to plan in management of type 2 DM on insulin, dyslipidemia, obesity/hunger issues, hypothyroidism. 09/03/2025 Other Tsering is an endocrinology patient with elevated cortisol levels (2.0 and 2.4), diabetes mellitus with suboptimal glycemic control (A1c 7.4%, average glucose 169), and multiple comorbidities including kidney tumor and chronic kidney disease. HypercortisolismAss essment: Patient has documented elevated cortisol levels on two occasions (2.0 and 2.4) with normal reference being 1.8. Clinical manifestations include poor sleep quality, frequent urination disrupting sleep, vivid dreams, and weakness affecting stair climbing and breathing. High cortisol poses significant cardiovascular and metabolic risks including heart attacks, strokes, osteoporosis, and neuropsychiatric symptoms such as difficulty with focus, ADHD-like symptoms, anxiety, worry, and depression.Plan:- Order CT scan of adrenals without contrast due to impaired kidney function- Consider cortisol-lowering medication (oral, twice daily dosing) pending insurance approval- Patient counseled that insurance authorization may take 6 months- Patient expressed preference to avoid new medications unless necessary Diabetes mellitusAssessment: Suboptimal glycemic control with current glucose reading of 160 mg/dL, average glucose 169 mg/dL, and A1c 7.4% (increased from previous 7.2%). Currently on Toujeo 13 units morning and 15 units bedtime with Ozempic 0.5 mg. Patient reports initial nausea with Ozempic for first two days but tolerating well since. GMI under 7.4% which is acceptable.Plan:- Adjust Toujeo: increase by 2 units every 3 days if morning glucose over 150 mg/dL- Consider increasing to 15-17 units of Toujeo- Discuss increasing Ozempic dose if patient can tolerate- Continue current diabetes medications Continuous glucose monitor issuesAssessment: Current Dexcom device inaccurate by approximately 20 points. Patient has visible inflammation at sensor site on arm from bending, creating discomfort when bumped. Unable to change sensor due to lack of replacement.Plan:- Provide replacement Dexcom G7 sensors- Consider alternative CGM device or contact insurance and [employer] regarding current device issues Kidney tumorAssessment: Patient has known kidney tumor with recommendation for conservative management (don't touch it). This affects imaging options due to need to avoid contrast with impaired kidney function.Plan:- Continue conservative management as previously recommended Spent 25 minutes preparing to see the patient (ex review of tests/chart), obtaining and / or reviewing separately obtained history, performing a medically appropriate examination and/or evaluation, counseling and educating the patient/family/care transport nurse, ordering medications, tests, or procedures, referring and communicating with other health physician locums urgent care, documenting clinical information in the electronic or other health record, independently interpreting results and communicating results to the patient/family/care transport nurse and care coordinating patient plan. Patient alert and oriented x 4 and aware of discussion noted above and in agreeance to plan in management of hypercortisolism, uncontrolled type 2 dM, weight gain, fatigue, hypothyroidism and concern for adrenal pathology. 30 second sit and stand test was suboptimal at 8 in 30 seconds indicative of poor muscle function and weakness as would be expected in hypercortisolism. Expected score would be 11 to 16 in her age group so patient is under expectations. Plan Of Treatment Pending Test Test Name Order Date *CT ABDOMEN W/O CONTRAST [id number] Insurance Providers Payer Name Payer Address Payer Phone Subscriber Number Group Number Insured Name Patient Relationship to Insured Coverage Start Date Coverage End Date [facility] ([facility]) [address] [address] [place] [address] [id number] Tsering Parham Self - patient is the insured Medical (General) History Medical History History ICD Code diabeties
--- OUTSIDE RECORDS SUMMARY | 2025-10-04 12:55 | XMS_ITS ---
Author Organization [facility] [address] [place] [id number] Care Team Providers Care Tenant Coordinator Name Role Phone Khalif Reynolds MD Primary Care Provide r Chriss Hendrickson MD Unavailable [phone] Zaid Adams MD Unavailable [phone] Nadir Ross MD Unavailable [phone] Asad Aldridge MD Unavailable [phone] Active Problems Problem Noted Date Diagnosed Date History of incisional hernia repair 06/21/2025 Cigarette nicotine dependence in remission 05/06 Assessment & Plan (08/06/2025 3:09 PM CDT): She quit in 2010 She is overdue for her annual screening (June of 2025) Assessment & Plan (05/06/2025 11:03 AM CDT): [...] stent 09/28 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 I will repeat levels in 3 months to ensure validity and would consider lead slot technician in the future Osteoarthritis of left knee 09/15/2023 Erythrocytosis 09/08/2023 [...] (05/18/2022): Added automatically from request for surgery [id number] Abdominal pain 05/17/2022 Malignant neoplasm of ovary [...] (gastroesophageal reflux disease) 9 Overview (04/14/2020): EGD 12/6/17 Gout 02/05/2019 Hyperlipidemia 02/05/2019 Hypertension 02/05/2019 IBS [...] medicine Assessment & Plan (10/18/2024 1:36 PM TURN OPERATOR): Continue PAP use with all sleep She [...] 11/22/2017 Assessment & Plan (11/22/2017 4:45 PM TURN OPERATOR): Ultrasound performed ( see report ) No solid nodules that need attention are visualized Continue to watch, no indication for any intervention at this point. Subclinical hyperthyroidism 11/22/2017 Assessment & Plan (02/21/2018 3:49 PM CDT): Check TFT's Start Tapazole if indicated Otherwise, f/u in 6 m Assessment & Plan (11/22/2017 4:44 PM TURN OPERATOR): Will check TFTs Stop PTU ( risk of liver damage ) If TFT's are normal, will recheck and reassess in 3 months Otherwise, will consider use of Tapazole Asthma 05/26/2017 Moderate chronic obstructive pulmonary disease 0 05/26/2017 Assessment & Plan (08/06/2025 3:07 PM CDT): Continue Symbicort 160/4.5 twice daily with an aerochamber Otuvayre was cost prohibitive She will continue Azithromycin 500 mg three times weekly I would also consider biologics cautiously based on frequent steroids use - her last eosinophil count was 220 We have discussed signs and symptoms that would require additional evaluation or change to her plan of care Assessment & Plan (05/06/2025 11:00 AM CDT): [...] care Assessment & Plan (10/18/2024 1:35 PM TURN OPERATOR): Continue Symbicort 160/4.5 twice daily While she [...] CARBOplatin (AUC 5) 21 [employer]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
--- OUTSIDE RECORDS SUMMARY | 2025-10-04 12:55 | XMS_ITS | Clinical Summary ---
Author Organization [facility] Phys[facility] Building [address] [place] [id number] Care Team Providers Care [employer] Starter Name Role Phone Khalif Reynolds MD Primary Care Provide r Chriss Hendrickson MD Unavailable [phone] Zaid Adams MD Unavailable [phone] Nadir Ross MD Unavailable [phone] Asad Aldridge MD Unavailable [phone] Allergies Active Allergy Reactions Criticality Noted Date [...] 1 tablet (20 mEq total) by mouth adult protective caseworker before breakfast 023 Active Prolia 60 mg/mL syringeIndicatio ns:postmenopausa l osteoporosis and high fracture risk Inject under the skin once Every 6 months for bone health 023 Active levothyroxine (SYNTHROID) 25 mcg tabletIndication s:hypothyroidism Take 1 tablet (25 mcg total) by mouth adult protective caseworker before breakfast 023 Active ipratropium (ATROVENT) 0.02 % nebulizer solution Take 2.5 mL (0.5 mg total) by nebulization adult protective caseworker before breakfast 023 Active Jardiance 10 mg tabletIndication s:type 2 diabetes mellitus Take 1 tablet (10 mg total) by mouth adult protective caseworker before breakfast Active rosuvastatin (CRESTOR) 40 mg tabletIndication s:hyperlipidemia Take 1 tablet (40 mg total) by mouth nightly 11/07/2 024 Active torsemide (DEMADEX) 100 mg tabletIndication s:Edema Take 1 tablet (100 mg total) by mouth 2 (two) times a day Active cetirizine (ZyrTEC) 10 mg tabletIndication s:Allergic Conjunctivitis,A llergic Rhinitis Take 1 tablet (10 mg total) by mouth adult protective caseworker before breakfast Active OneTouch Delica Plus Lancet 33 gauge misc USE TO TEST THREE TIMES DAILY Active lidocaine (LIDODERM) 5 %Indications:Alvarado ropathic Pain Place 1 patch on the skin adult protective caseworker before breakfast Active meloxicam (MOBIC) 7.5 mg tabletIndication s:Osteoarthritis Take 1 tablet (7.5 mg total) by mouth 2 (two) times a day as needed for pain Active OneTouch Verio test strips strip as directed Active TOUJEO 300 unit/mL (1.5 mL) pen for injection Inject 13 Units under the skin 2 (two) times a day 13 Units in the morning and 15 units in the Evening Active aspirin 81 mg chewable tabletIndication s:prevention of thrombosis Take 1 tablet (81 mg total) by mouth adult protective caseworker before breakfast Active senna (SENOKOT) 8.6 mg [...] 8 (eight) hours as needed for pain Active Ozempic 0.25 mg or 0.5 mg (2 mg/3 mL) pen injector injection Inject 0.25 mg under the skin once a week Active spironolactone (ALDACTONE) 25 mg tablet Take 1 tablet (25 mg total) by mouth daily Active ipratropium-albu teroL (COMBIVENT RESPIMAT) 20-100 mcg/actuation inhalerIndicatio ns:Chronic Obstructive Pulmonary Disease with Bronchospasms Inhale 1 puff 4 (four) times a day as needed for wheezing 4 g 11 025 2025 Active apixaban (ELIQUIS) 2.5 mg tablet Take 1 tablet (2.5 mg total) by mouth 2 (two) times a day for 28 days 56 tablet 022 2021 Discontinued ipratropium-albu teroL (COMBIVENT RESPIMAT) 20-100 mcg/actuation inhalerIndicatio ns:Chronic Obstructive Pulmonary Disease with Bronchospasms Inhale 1 puff 4 (four) times a day as needed for wheezing 4 g 11 024 2024 Discontinued(R jorge) Active Problems Problem Noted Date Diagnosed Date [...] months to ensure validity and would consider technician telecommunication systems in the future Osteoarthritis of left knee [...] (05/18/2022): Added automatically from request for surgery [id number] Abdominal pain 05/17/2022 Malignant neoplasm of ovary [...] medicine Assessment & Plan (10/18/2024 1:36 PM BIOMEDICAL SCIENTIST): Continue PAP use with all sleep She [...] 11/22/2017 Assessment & Plan (11/22/2017 4:45 PM BIOMEDICAL SCIENTIST): Ultrasound performed ( see report ) No solid nodules that need attention are visualized Continue to watch, no indication for any intervention at this point. Subclinical hyperthyroidism 11/22/2017 Assessment & Plan (02/21/2018 3:49 PM CDT): Check TFT's Start Tapazole if indicated Otherwise, f/u in 6 m Assessment & Plan (11/22/2017 4:44 PM BIOMEDICAL SCIENTIST): Will check TFTs Stop PTU ( risk [...] care Assessment & Plan (10/18/2024 1:35 PM BIOMEDICAL SCIENTIST): Continue Symbicort 160/4.5 twice daily While she [...] Encounters Date Type Department Care Team Description 10/01/2025 Telephone [facility] Pulmonary at [address] [place] [phone] Elizabeth Barr NP Med Refill 09/16/2025 Telephone [facility] 1 [place] [address] Elizabeth Bustillo RN 08/06/2025 10:30 AM CDT Office Visit [facility] Pulmonary at [address] [place] [address] Elizabeth Barr NP Cigarette nicotine dependence in remission (Primary Dx); Moderate chronic obstructive pulmonary disease (HCC); Immunoglobulin G subclass deficiency (HCC); Nicotine dependence, cigarettes, uncomplicated 07/29/2025 Telephone [facility] [address] [phone] Rosamaria Avendaño MD 07/12/2025 Results Follow-Up [facility] Emergency Department 1 [place] [phone] Ольга Patrick RN Urine culture Urine 07/09/2025 5:46 PM CDT - 07/09/2025 9:19 PM CDT Emergency [facility] Emergency Department 1 [place] [phone] Kala Hughes MD Cystitis (Primary Dx); History of hernia repair; Abdominal pain Discharge Disposition: Discharge to home or self care from Last 3 Months Immunizations Immunization Administration [...] 2000-uses cpap Hyperlipidemia H/O blood clots Diabetes CHF (congestive heart failure) (HCC) Irritable bowel [...] Past Smokeless Tobacco: Never Tobacco Cessation:Counseling Given: Not [...] making you feel afraid or unsafe? Denies 07/09/2025 Comments No Sex and Gender Information Value Date Recorded Sex Assigned at Not on file Legal Sex Female 12:59 PM BIOMEDICAL SCIENTIST Gender Identity Not on file Sexual Orientation Not on file Obstetrics History Para Term AB IAB SAB Ectopic Multiple Livin g Live Births 0 0 0 0 0 0 0 0 0 0 0 Last Filed Vital Signs Vital Sign Reading Time Taken Comments Blood Pressure 110/60 08/06/2025 10:08 AM CDT Pulse 85 08/06/2025 10:08 AM CDT Temperature 36.5 C (97.7 F) 08/06/2025 10:08 AM CDT Respiratory Rate 18 08/06/2025 10:08 AM CDT Oxygen Saturation 93% 08/06/2025 10:08 AM CDT Inhaled Oxygen Concentration - - Weight 80.7 kg (178 lb) 08/06/2025 10:08 AM CDT Height 157.5 cm (5' 2) 08/06/2025 10:08 AM CDT Body Mass Index 32.56 08/06/2025 10:08 AM CDT Plan of Treatment Health Maintenance [...] 05/17/2022, 04/14/2020 Lipid Panel 05/17/2023 05/17/2022, 02/15/2018 Osteoporosis Screening-Bone Density Scan 06/07/2025 06/07/2023, 09/21/2021, 08/25/2021 Covid-19 Vaccine (2024-2 6 season) 2025 09/06/2022, 09/06/2022, 03/01/2022, Additional history exists Influenza Vaccine (#1) 2025 , 08/15/2022, 09/07/2021, Additional history exists Fall Risk Assessment 05/22/2026 05/22/2025 eGFR 07/09/2026 07/09/2025, 07/06/2025, 10/02/2024, Additional history exists DTaP/Tdap/Td Vaccine (2 - Td or Tdap) 07/19/2029 07/19/2019 Medical Devices Implanted Type Area Optical Engineering Manager Device Identifier Shelf Expiration Date Model / Serial / Lot [employer]/C R Bard Mesh Surgical Hernia Synthetic Patch [id number] [id number] - [id number] Implanted:Qty: 1 on 05/21/2025 by Asad Aldridge MD at [facility] Mesh N/A: Abdomen [employer]/C R Bard [id number] 08/11/2029 [id number] / / Stent Stent Heart Stent Stent Bilateral: Leg Description:For DVT Explanted Type Area Optical Engineering Manager Device Identifier Shelf Expiration Date Model / Serial / Lot [employer] Xcela Power Port 8fr [id number] - [id number] Implanted:Qty: 1 on 07/09/2022 at [facility] [employer] 01/05/2027 [id number] / / [id number] Procedures Procedure Name Priority Date/Time Associated Diagnosis Comments ECG 12-LEAD STAT 07/10/2025 12:[address] ABDOMEN PELVIS W CONTRAST ED 07/09/2025 7:44 PM CDT POCT CREATININE - DEVICE Routine 07/09/2025 7:27 PM CDT URINALYSIS, MICROSCOPIC ONLY STAT 07/09/2025 7:20 PM CDT URINE CULTURE STAT 07/09/2025 7:20 PM CDT URINALYSIS AND REFLEX TO MICROSCOPIC AND CULTURE STAT 07/09/2025 7:20 PM CDT EGFR STAT 07/09/2025 6:41 PM CDT DIFFERENTIAL AUTO STAT 07/09/2025 6:4 1 PM CDT TROPONIN I HIGH-SENSITIVITY SERIES (BASELINE, 2HR, 4HR, 6HR) STAT 07/09/2025 6:41 PM CDT LIPASE STAT 07/09/2025 6:41 PM CDT COMPREHENSIVE METABOLIC PANEL STAT 07/09/2025 6:41 PM CDT CBC WITH AUTO DIFFERENTIAL STAT 07/09/2025 6:41 PM CDT XR CHEST 1 VIEW ED 07/09/2025 6:34 PM CDT POCT KETONE, BLOOD Routine 07/09/2025 4: 15 PM CDT POCT GLUCOSE DEVICE Routine 07/09/2025 4 :15 PM CDT HEMOGLOBIN A1C Timed 05/17/2022 12:15 AM CDT LIPID PANEL Timed 05/17/2022 12:15 AM CDT from Last 3 Months or Most Recently Relevant to Health Maintenance Results * ECG 12-LEAD (07/10/2025 12:43 AM CDT) Narrative [facility]USE [facility] - 07/10/2025 12:43 AM CDT Kala Hughes MD 07/10/2025 12:44 AM ECG 12 lead Date/Time: 07/10/2025 12:43 AM Performed by: Kala Hughes MD Authorized by: Jaylyn Vo MD Rate: ECG rate: 79 ECG rate assessment: normal Rhythm: Rhythm: sinus rhythm Ectopy: Ectopy: none QRS: QRS axis: Normal QRS intervals: Normal Conduction: Conduction: normal ST segments: ST segments: Normal T waves: T waves: normal Other findings: Other findings: low voltage Interpretation: Interpretation: normal Recommended Follow-up: Recommended follow up: further workup in the ED us Jaylyn Vo MD ECG ORDERABLES Final Resu lt [facility]USE [facility] * CT Abdomen Pelvis W Contrast (07/09/2025 7:44 PM CDT) Anatomical Region Laterality Modality Body N/A Computed Tomogra phy 07/09/2025 8:42 PM CDT Impressions 07/10/2025 12:15 PM CDT 1. No acute CT findings within the abdomen or pelvis. 2. Severe atherosclerosis of the abdominal aorta and its branches including the superior mesenteric artery without high grade stenosis of the superior mesenteric artery. 3. Unchanged ill-defined left retroperitoneal lipomatous lesion which was previously biopsied and determined to be benign. Dictated by: Junito Lee M.D. The radiology attending physician has personally reviewed this study, and had reviewed and/or edited this written report and agrees with it. Electronically signed by: Steven Macdonald M.D. Narrative 07/10/2025 12:15 PM CDT EXAMINATION: Computed tomography of the abdomen and pelvis with intravenous contrast HISTORY: Abdominal pain with history of incisional hernia repair in May. History of ovarian cancer status post salpingo-oophorectomy and hysterectomy. TECHNIQUE: Transaxial computed tomographic images of the abdomen and pelvis were obtained with intravenous contrast according to the standard protocol after the uneventful administration of 75 mL Opti-Ray 350 intravenous contrast. COMPARISON: Multiple prior CTs most recently 04/16/2025. FINDINGS: Heart size is normal. No pericardial effusion. Imaged lung bases are clear. Emphysema in lung bases. Mild steatosis of the liver. No suspicious hepatic lesions. Gallbladder is absent. Portal vein is patent. Pancreas, spleen, and adrenal glands are normal. These are symmetrically enhancing without evidence of hydronephrosis or nephrolithiasis. Urinary bladder is normal. Uterus is absent. No suspicious adnexal masses. Bowel is normal in course and caliber without evidence of obstruction. Stomach is normal. No pneumoperitoneum or free intraperitoneal fluid. Interval repair of fat-containing abdominal wall incisional hernia with scarring along the anterior abdominal wall. Severe atherosclerosis of the abdominal aorta without significant stenosis. There is also severe atherosclerosis of the bilateral iliac vessels. There is severe atherosclerotic calcifications within the proximal/mid superior mesenteric artery resulting in at least moderate stenosis. No suspicious osseous lesions. Unchanged ill-defined left retroperitoneal lipomatous lesion. Procedure Note Steven Macdonald MD - 07/10/2025 EXAMINATION: Computed tomography of the abdomen and pelvis with intravenous contrast HISTORY: Abdominal pain with history of incisional hernia repair in May. History of ovarian cancer status post salpingo-oophorectomy and hysterectomy. TECHNIQUE: Transaxial computed tomographic images of the abdomen and pelvis were obtained with intravenous contrast according to the standard protocol after the uneventful administration of 75 mL Opti-Ray 350 intravenous contrast. COMPARISON: Multiple prior CTs most recently 04/16/2025. FINDINGS: Heart size is normal. No pericardial effusion. Imaged lung bases are clear. Emphysema in lung bases. Mild steatosis of the liver. No suspicious hepatic lesions. Gallbladder is absent. Portal vein is patent. Pancreas, spleen, and adrenal glands are normal. These are symmetrically enhancing without evidence of hydronephrosis or nephrolithiasis. Urinary bladder is normal. Uterus is absent. No suspicious adnexal masses. Bowel is normal in course and caliber without evidence of obstruction. Stomach is normal. No pneumoperitoneum or free intraperitoneal fluid. Interval repair of fat-containing abdominal wall incisional hernia with scarring along the anterior abdominal wall. Severe atherosclerosis of the abdominal aorta without significant stenosis. There is also severe atherosclerosis of the bilateral iliac vessels. There is severe atherosclerotic calcifications within the proximal/mid superior mesenteric artery resulting in at least moderate stenosis. No suspicious osseous lesions. Unchanged ill-defined left retroperitoneal lipomatous lesion. IMPRESSION: 1. No acute CT findings within the abdomen or pelvis. 2. Severe atherosclerosis of the abdominal aorta and its branches including the superior mesenteric artery without high grade stenosis of the superior mesenteric artery. 3. Unchanged ill-defined left retroperitoneal lipomatous lesion which was previously biopsied and determined to be benign. Dictated by: Junito Lee M.D. The radiology attending physician has personally reviewed this study, and had reviewed and/or edited this written report and agrees with it. Electronically signed by: Steven Macdonald M.D. us Jaylyn Vo MD IMG CT PROCEDURES Final Re sult * POCT creatinine (07/09/2025 7:27 PM CDT) Creatinine POC 1.0 0.6 - 1.1 mg/dL Blood 07/09/2025 7:27 PM CDT 07/09/2025 7:27 PM CDT Kala Hughes MD LAB POCT ORDERABLES - DEVICE Final Result [facility] One [facility] Department [place] [address] * (ABNORMAL) Urinalysis reflex to microscopic and culture Urine (07/09/2025 7:20 PM CDT) Color, ur Yellow Yellow Clarity, ur Turbid(A) Clear [facility] Specific gravity, ur 1.022 1.003 - 1.030 [facility] pH, urine 6.0 [facility] Comment: Interpretive Data U rine pH is affected by diet, medications, systemic acid-base disturbances, and renal tubular function. pH may affect urinary stone formation. For example, urine pH below 6.0 may help reduce the tendency for calcium phosphate stones and pH greater than 6.0 may reduce the tendency for uric acid stone formation. Source: [facility] [employer] Current Interpretive Data was last revised on 2017 Protein, ur ql 1+(A) Negative [facility] Glucose, ur ql 4+(A) Negative [facility] Ketones, ur Negative Negative [facility] Bilirubin, ur Negative Negative [facility] Blood, ur 1+(A) Negative [facility] Urobilinogen, ur <2.0 <2.0 mg/dL [facility] Nitrite, ur Positive(A) Negative [facility] Leukocyte esterase, ur 3+(A) Negative [facility] UA reflex comment Reflex to microscopic UA will be performed. [facility] Urine 07/09/2025 7:20 PM CDT 07/09/2025 7:26 PM CDT Jaylyn Vo MD LAB MICROBIOLOGY - GENERAL ORDERABLES Final Result Performing Organization Address City/[facility] Co de Phone Number [facility] [place] [address] * (ABNORMAL) Urinalysis, microscopic only (07/09/2025 7:20 PM CDT) WBC, ur >50(A) 0 - 5 /HPF RBC, ur 0-2 0 - 2 /HPF [facility] Epithelial cells, squamous, ur 1-5 0 - 5 /HPF [facility] Bacteria, ur Trace(A) [facility] Yeast, ur 1+(A) [facility] Culture Reflex Comment Reflex to urine culture will be performed. [facility] Urine 07/09/2025 7:20 PM CDT 07/09/2025 7:26 PM CDT Jaylyn Vo MD LAB URINE ORDERABLES Final Result Performing Organization Address [facility] de Phone Number [facility] Department [place] [address] * (ABNORMAL) Urine culture Urine (07/09/2025 7:20 PM CDT) Report Final Report: Greater than or equal to 100,000 colonies/mL of Klebsiella pneumoniae (.) Organism KLEBSIELLA PNEUMONIAE [facility] Urine 07/09/2025 7:20 PM CDT 07/09/2025 11:11 PM CDT Narrative [facility] - 07/11/2025 5:34 PM CDT Urine culture reflexed based upon urinalysis results. Testing performed by [facility] ([phone]) Organism Antibiotic Method Susceptibility Klebsiella pneumoniae Ampicillin INTERPRETATION Resistant Klebsiella pneumoniae Cefazolin INTERPRETATION Susceptible Klebsiella pneumoniae Nitrofurantoin INTERPRETATION Susceptible Klebsiella pneumoniae Gentamicin INTERPRETATION Susceptible Klebsiella pneumoniae Trimethoprim with Sulfamethoxazole INTERPRETATION Susceptible Klebsiella pneumoniae Meropenem INTERPRETATION Susceptible Klebsiella pneumoniae Cefepime INTERPRETATION Susceptible Klebsiella pneumoniae Ciprofloxacin INTERPRETATION Susceptible Klebsiella pneumoniae Ceftazidime INTERPRETATION Susceptible Klebsiella pneumoniae Ceftriaxone INTERPRETATION Susceptible Klebsiella pneumoniae Piperacillin/Tazobactam INTERPRE TATION Intermediate Klebsiella pneumoniae Cephalexin INTERPRETATION Susceptible Klebsiella pneumoniae Cefuroxime-axetil INTERPRETATION Susceptible Klebsiella pneumoniae Cefdinir INTERPRETATION Susceptible Jaylyn Vo MD LAB MICROBIOLOGY - GENERAL ORDERABLES Final Result Performing Organization Address [facility] Co de Phone Number [facility] [place] [address] * Troponin I high-sensitivity series (baseline, 2hr, 4hr, 6hr) (07/09/2025 6:41 PM CDT) Trop I hs <4 <=17 ng/L Comment: Interpretive Data For further hscTnI resources including the diagnostic algorithm and an aid in interpretation, copy and paste this link: [email or web address] Current Interpretive Data last revised 2020. Blood 07/09/2025 6:41 PM CDT 07/09/2025 6:57 PM CDT Jaylyn Vo MD LAB BLOOD ORDERABLES Final Result Performing Organization Address [facility] de Phone Number [facility] Department [place] [address] * (ABNORMAL) eGFR (07/09/2025 6:41 PM CDT) eGFR 58(L) >=60 mL/min/1. 73 m2 Comment: Interpretive Data [...] of Race in Diagnosing Kidney Disease, JASN 202). The CKD-EPI equation should not be used for patients with unstable renal function and has not been validated in children and those over 70. Current interpretive data was last reviewed 2021. Blood 07/09/2025 6:41 PM CDT 07/09/2025 6:57 PM CDT us Jaylyn Vo MD LAB BLOOD ORDERABLES Final Result [facility] One [facility] Department [place] [address] * (ABNORMAL) Differential, auto (07/09/2025 6:41 PM CDT) Neutrophil abs 5.87 1.50 - 6.50 K/cumm Imm gran abs 0.05 0.00 - 0.10 K/cumm [facility] Lymphocyte abs 1.99 0.80 - 3.30 K/cumm [facility] Monocyte abs 0.88(H) 0.20 - 0.80 K/cumm [facility] Eosinophil abs 0.22 0.00 - 0.50 K/cumm [facility] Basophil abs 0.03 0.00 - 0.10 K/cumm [facility] Neutrophil pct 65.0 % [facility] Comment: Interpretive Data Percent cell count reference ranges are not reported, since discordance with absolute values may lead to misinterpretation of CBC data. Current Interpretive Data was last revised on 2018. Imm gran pct 0.6 % [facility] Comment: Interpretive Data Percent cell count reference ranges are not reported, since discordance with absolute values may lead to misinterpretation of CBC data. Current Interpretive Data was last revised on 2018. Lymphocyte pct 22.0 % [facility] Comment: Interpretive Data Percent cell count reference ranges are not reported, since discordance with absolute values may lead to misinterpretation of CBC data. Current Interpretive Data was last revised on 2018. Monocyte pct 9.7 % [facility] Comment: Interpretive Data Percent cell count reference ranges are not reported, since discordance with absolute values may lead to misinterpretation of CBC data. Current Interpretive Data was last revised on 2018. Eosinophil pct 2.4 % [facility] Comment: Interpretive Data Percent cell count reference ranges are not reported, since discordance with absolute values may lead to misinterpretation of CBC data. Current Interpretive Data was last revised on 2018. Basophil pct 0.3 % [facility] Comment: Interpretive Data Percent cell count reference ranges are not reported, since discordance with absolute values may lead to misinterpretation of CBC data. Current Interpretive Data was last revised on 2018. Blood 07/09/2025 6:41 PM CDT 07/09/2025 6:57 PM CDT us Jaylyn Vo MD LAB BLOOD ORDERABLES Final Result [facility] Department [place] [address] * (ABNORMAL) CBC with auto differential (07/09/2025 6:41 PM CDT) WBC 9.04 3.80 - 9.90 K/cumm Hgb 13.9 11.9 - 15.5 g/dL [facility] Hct 42.7 35.6 - 45.5 % [facility] Plt 348 150 - 400 K/cumm [facility] MPV 8.9(L) 9.1 - 12.3 fL [facility] RBC 4.93 3.90 - 5.20 M/cumm [facility] MCV 86.6 81.3 - 96.4 fL [facility] MCH 28.2 27.1 - 33.3 pg [facility] MCHC 32.6 32.3 - 35.7 g/dL [facility] RDW CV 15.8(H) 11.1 - 14.9 % [facility] RDW SD 49.6(H) 35.7 - 48.1 fL [facility] NRBC abs 0.00 0.00 - 0.01 K/cumm [facility] Blood 07/09/2025 6:41 PM CDT 07/09/2025 6:57 PM CDT Jaylyn Vo MD LAB BLOOD ORDERABLES Final Result Performing Organization Address [facility] Co de Phone Number [facility] Department [place] [address] * Lipase (07/09/2025 6:41 PM CDT) Pathologist [facility] Lipase 19 10 - 99 Units/L Blood 07/09/2025 6:41 PM CDT 07/09/2025 6:57 PM CDT Jaylyn Vo MD LAB BLOOD ORDERABLES Final Result Performing Organization Address [facility] de Phone Number [facility] Department [place] [address] * (ABNORMAL) Comprehensive metabolic panel (07/09/2025 6:41 PM CDT) [facility] [facility] Sodium 136 135 - 145 mmol/L Potassium, pl 4.7 3.3 - 4.9 mmol/L [facility] Chloride 101 97 - 110 mmol/L [facility] CO2 24 22 - 32 mmol/L [facility] Anion gap 11 2 - 15 mmol/L [facility] BUN 11 6 - 25 mg/dL [facility] Creatinine 1.05 0.60 - 1.10 mg/dL [facility] Glucose 108 70 - 199 mg/dL [facility] Comment: Interpretive Data Fasting glucose >/= 126 [...] interpretive data was last revised 2022. Calcium 10.2 8.5 - 10.3 mg/dL [facility] Bilirubin, total 0.6 0.1 - 1.2 mg/dL [facility] Protein, pl 7.7 6.5 - 8.5 g/dL [facility] Albumin 4.0 3.5 - 5.0 g/dL [facility] Alk phos 161(H) 40 - 130 Units/L [facility] ALT 42 7 - 45 Units/L [facility] AST 36 10 - 45 Units/L [facility] Blood 07/09/2025 6:41 PM CDT 07/09/2025 6:57 PM CDT us Jaylyn Vo MD LAB BLOOD ORDERABLES Final Result [facility] Department [place] [address] * XR Chest 1 Vw Portable (07/09/2025 6:34 PM CDT) Anatomical Region Laterality Modality Body, Chest N/A Computed Radiogr aphy 07/09/2025 8:17 PM CDT Impressions 07/09/2025 8:17 PM CDT Comparison is made a CT performed on 07/02/2024. There is no pleural effusion, pneumothorax, or pneumonic consolidation. Normal heart size. Electronically signed by: Rigoberto Cross M.D. Narrative 07/09/2025 8:17 PM CDT EXAMINATION: 1 view chest radiograph Procedure Note Rigoberto Cross MD - 07/09/2025 EXAMINATION: 1 view chest radiograph IMPRESSION: Comparison is made a CT performed on 07/02/2024. There is no pleural effusion, pneumothorax, or pneumonic consolidation. Normal heart size. Electronically signed by: Rigoberto Cross M.D. us Jaylyn Vo MD IMG XR PROCEDURES Final Re sult * POCT glucose (07/09/2025 4:15 PM CDT) Glucose, POC 115 70 - 199 mg/dL Blood 07/09/2025 4:15 PM CDT 07/09/2025 4:15 PM CDT Notinfile Unknown LAB POCT ORDERABLES - DEVICE F inal Result Performing Organization Address [facility] Co de Phone Number [facility] Department [place] [address] * POCT ketone, blood (07/09/2025 4:15 PM CDT) [facility] Signature Beta-Hydroxybut yrate, POC 0.3 0.0 - 0.5 mmol/L Blood 07/09/2025 4:15 PM CDT 07/09/2025 4:15 PM CDT Kala Hughes MD LAB POCT ORDERABLES - DEVICE Final Result Performing Organization Address [facility] de Phone Number [facility] Department [place] [address] * (ABNORMAL) Hemoglobin A1c (05/17/2022 12:15 AM CDT) [facility] Hgb A1C 6.0(H) 4.0 - 5.6 % [facility] Estimated Average Glucose 126 mg/dL [facility] Comment: The ADA recommends reporting an estimated [...] MD LAB BLOOD ORDERABLES Fin al Result [facility] Department [place] [address] * Lipid panel (05/17/2022 12:15 AM CDT) Cholesterol 88 30 - 199 mg/dL [facility] Comment: Interpretive Data Ages < or = [...] on 2018. Triglycerides 100 <=149 mg/dL [facility] Comment: Interpretive Data Ages < or = [...] on 2018. HDL 42 >=40 mg/dL [facility] Comment: Interpretive Data Ages < or = [...] on 2018. LDL, calculated 26 <=129 mg/dL [facility] Comment: Interpretive Data Ages < or = [...] revised on 2018. Non-HDL Cholesterol 46 mg/dL [facility] Comment: Interpretive Data Ages < or = [...] last revised on 2018. Chol/HDL ratio 2 [facility] Blood 05/17/2022 12:1 5 AM CDT 05/17/2022 1:26 AM CDT us Premga Willie Peters MD LAB BLOOD ORDERABLES Fin al Result [facility] [place] [address] from Last 3 Months or Most Recently Relevant to Health Maintenance Insurance * Guarantor: Tsering Parham Account Type Relation to Patient Date of Phone Billing Address Personal/Family Self 1955 [address] [place] [address] [facility] MEDICARE ADVANTAGE * Guarantor: Tsering Parham Account Type Relation to Patient Date of Phone Billing Address Personal/Family Self 1955 [address] [place] [address] [employer] [facility] MEDICARE ADVANTAGE * Guarantor: Tsering Parham Account Type Relation to Patient Date of Phone Billing Address Personal/Family Self 1955 [address] [place] [address] [facility] MEDICARE ADVANTAGE [facility] Address: [facility] [address] [place] [address] Advance Directives For more information, please contact: [phone] * Full Code (Latest Code Status on [...] 11:52 PM 05/18/2022 9:16 PM Care Teams Golf Course Starter Relationship Specialty Start Date End Date Khalif Reynolds MD [address] [facility] [place] [address] [place] [address] PCP - General Internal Medicine 10/28/17 Chriss Hendrickson MD [address] [place] [address] [place] [address] Referring Physician Obstetrics and Gynecology 01/18/20 Zaid Adams MD [address] [place] [address] Referring Physician Gastroenterology 02/14/23 Nadir Ross MD [address] [place] [address] Consulting Physician Cardiovascular Disease 02/14/23 Asad Aldridge MD [address] [facility] [place] [address] [place] [address] Consulting Physician General Surgery 05/08/25
--- OUTSIDE RECORDS SUMMARY | 2025-10-04 12:56 | XMS_ITS | Clinical Summary ---
Demographics Address [address] [place] [address] Home Phone Mobile Phone Preferred Language Unknown Marital Status Anglican Affiliation Unknown Race White Ethnic Group Not or Lati no Author Organization [facility] Address [address] [facility] [place] [address] Care Team Providers Care Landscaper Helper Name Role Phone Mar Reynolds MD Primary [...] Encounters Date Type Department Care Team Description 09/11/2025 External Device Data [facility] Provider, Abstract 09/11/2025 External Device Data [facility] Provider, Abstract 07/23/2025 External Device Data [facility] Provider, Abstract from Last 3 Months Family History Medical [...] on file Legal 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 Gender Identity Not on file Sexual Orientation [...] st Contact Info) Description 12/05/2025 10:15 AM 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 Office Visit [facility] H[facility]ology [facility] [place] [address] [facility] [address] [place] [address] Stephen Douglas MD [address] [facility] [address] [place] [address] Health Maintenance Due Date Last Done Comments DIABETES MICROALBUMIN ANNUAL SCREEN 1974 LDL CHOLESTEROL ANNUAL 1974 ZOSTER VACCINE (1 of 2) 1975 FIT-DNA Q 3 years 2001 FIT/FOBT Q 1 year 2001 Flex Sig/CT Colonography Q 5 years 2001 Lung Cancer Screening 2006 RSV VACCINE (60+ or ) (1 - Risk 50-74 years 1-dose series) 2006 PNEUMOCOCCAL VACCINE 50+ YEA RS (2 of 2 - PCV) 12/17/2016 12/17/2015 DIABETES ANNUAL FOOT EXAM 02/21/2019 02/21/2018 DIABETES ANNUAL RETINAL EXAM 03/31/2021, 03/31/2020, 03/07/2018, Additional history exists BREAST CANCER SCREENING 09/01/2021 09/01/20 20, 09/01/2020, 12/04/2018, Additional history exists DIABETES HBA1C Q 6 MONTHS 11/17/20222021, 01/26/2021, 11/25/2020, Additional history exists OSTEOPOROSIS SCREENING 08/20/2024 08/20/2019 INFLUENZA VACCINE (#1) 2025 , 09/07/2021, 08/27/2020, Additional history exists DTAP/TDAP/TD VACCINES (2 - T d or Tdap) 07/19/2029 07/19/2019 COLORECTAL SCREENING 08/31/2029 08/31/2019, 08/31/2019, 08/31/2019 Colorectal Cancer Screening 08/31/2029 Insurance DUAL COMPLETE PPO DSNP [facility] [id number] * Guarantor: Tsering Parham Account Type Relation to Patient Date of Phone Billing Address Personal/Family Self [address] [place] [address] DUAL COMPLETE PPO DSNP [facility] [id number] [facility] [employer] [place] Care Teams Landscaper Helper Relationship Specialty Start Date End Date Mar Reynolds MD PCP - General Internal Medicine 02/13/19
--- OUTSIDE RECORDS SUMMARY | 2025-10-04 12:56 | XMS_ITS | Continuity of Care Document ---
Demographics Address [address] [place] [address] Home Phone Mobile Phone Preferred Language en Marital Status Nondenominational Affiliation Unknown Race White Ethnic Group Not or Lati no Author Organization [place] [facility] [employer] [facility], [facility] [place] Address [address] [place] [address] Care Team Providers Care Tufter Operator Name Role Phone MAR PINTO Primary Care Provider MAR PINTO Referring Provider AMANDA HURTADO Press Tender ROMIE BOND Cuff Stitcher MIKI JOVEL Airfreight Loading Supervisor DORCAS DIEZ Curatorial Assistant Assessment Encounter Date Assessment Date Assessment LastModified by Organization Details LastModified Time 09/24/2025 09/24/2025 This note is dictated and transcribed by [employer]. Finishing Range Supervisor variances may occur. Despite proofreading, typographical errors may occur. Occasional wrong-word or '[id number]' substitutions may have occurred due to the inherent limitations of voice recording. Read the chart carefully and recognize, using context, where substitutions have occurred. [email or web address] Not available 09/24/2025 09:50:42 Plan of Treatment Reminders Order Date Submit Date Provider Last Modified By Organization Details Last Modified Time Details Appointments Any 15 2024 09:15A M Mar vasquez MD Not available Not available Not available Establish ed Patient 10 2025 10:00A M Romie Bond DPM Not available Not available Not available Lab None recorded. Referral None recorded. Procedures None recorded. Surgeries None recorded. Imaging XR, toe(s), 2 or more view 2024 025 [id number] [facility] [address], [place], [address], 10/01/2025 08:14:24 Medication Orders None recorded. Patient TargetsNo targets recorded. Patient InstructionsNo instructions recorded. Reason for Referral None Reported. Results Created Date Observation Date Name Description Value Unit Range Abnormal Flag Note LastModifiedBy Organization Detail LastModifiedTime 09/18/2009/06/2025 imagi ng/di agnos tic resul t No observ ation record ed. [facility] [address], [place], [address], 09/18/2025 09:48:05 09/18/2009/06/2025 imagi ng/di agnos tic resul t No observ ation record ed. [facility] [address], [place], [address], 09/18/2025 15:34:26 10/03/20 25 10/03/2025 imagi ng/di agnos tic resul t No observ ation record ed. [facility] [address], [place], [address], 10/03/2025 13:03:20 10/03/20 25 09/13/2025 imagi ng/di agnos tic resul t No observ ation record ed. [facility] [address], [place], [address], 10/03/2025 14:12:19 Result Notes None recorded. Problems Name Problem SNOMED Code Status Onset Date Resolution Date Notes Provider Name and Address Organization Details Recorded Time Acute bronchiti s 03589504 Active Not Available [facility] 3 00:51:38 Rectal hemorrhag e 76961845 Active Not Available [facility] 3 00:51:39 Chronic obstructi ve pulmonary disease 81329416 Active Not Available [facility] 3 00:51:39 Constipat ion 79154835 Active Not Available [facility] 3 00:51:39 Subclavia n steal syndrome 86618109 Active Not Available [facility] 3 00:51:39 Acute sinusitis 54400093 Active Not Available [facility] 3 00:51:39 Urinary incontine nce 491920862 Active Not Available [facility] 3 00:51:39 Acute exacerbat ion of chronic obstructi ve pulmonary disease 213846703 Active Not Available [facility] 3 00:51:39 Disorder of upper respirato ry system 763481406 Active Not Available [facility] 3 00:51:39 Neuropath y due to diabetes mellitus 532500863 Active Not Available [facility] 3 00:51:39 Gastroeso phageal reflux disease 983706358 Active Not Available [facility] 3 00:51:39 Syncope and collapse 283069795 Active Not Available [facility] 3 00:51:39 Bronchiti s 78146483 Active Not Available [facility] 3 00:51:39 Hyperthyr oidism 35809878 Active Not Available [facility] 3 00:51:39 Vitamin D deficienc y 70801821 Active Not Available [facility] 3 00:51:39 Depressiv e disorder 25542164 Active Not Available [facility] 3 00:51:39 Sinusitis 17204284 Active Not Available [facility] 3 00:51:39 Goiter 4567897 Active Not Available [facility] 3 00:51:39 Chronic pain syndrome 843152676 Active Not Available [facility] 3 00:51:39 Abnormal voice 45957290 Active Not Available [facility] 3 00:51:39 Disorder of vitamin D 823668986 Active Not Available [facility] 3 00:51:39 Osteoarth ritis 274993977 Active Not Available [facility] 3 00:51:39 Pharyngit is 988960196 Active Not Available [facility] 3 00:51:39 Obesity 357572910 Active Not Available [facility] 3 00:51:39 Onychomyc osis 402496063 Active Not Available [facility] 3 00:51:39 Swelling of upper arm 233462710 Active Not Available [facility] 3 00:51:40 Coronary arteriosc lerosis 50730922 Active s/p stent 09/28 Not Available [facility] 3 00:51:40 Upper respirato ry infection 29396061 Active Not Available [facility] 3 00:51:40 Essential hypertens ion 03210733 Active Not Available [facility] 3 00:51:40 Allergic rhinitis 41645790 Active Not Available [facility] 3 00:51:40 Closed traumatic dislocati on of joint of finger 68140059 Active Not Available [facility] 3 00:51:40 Obstructi ve sleep apnea syndrome 47837850 Active Not Available [facility] 3 00:51:40 Neck pain 87201021 Active Not Available [facility] 3 00:51:40 Tinea corporis 71484285 Active Not Available [facility] 3 00:51:40 Pain in limb 78933917 Active Not Available [facility] 3 00:51:40 Body mass index 30+ - obesity 913369818 Active 2016 Not Available [facility] 3 00:51:39 Moderate chronic obstructi ve pulmonary disease 612228577 Active 2016 Not Available [facility] 3 00:51:39 Former heavy tobacco smoker 12029233229 4100 Active 2016 Not Available [facility] 3 00:51:39 Fungal respirato ry infection 422546525 Active 2017 Not Available [facility] 3 00:51:39 Dyspnea on exertion 91147339 Active 2017 Not Available [facility] 3 00:51:40 Asthma-ch ronic obstructi ve pulmonary disease overlap syndrome 29573772147 019205 Active 2017 Not Available [facility] 3 00:51:38 Foot pain 47358710 Active 2018 Not Available [facility] 3 00:51:40 Foot pain 49523346 Completed 201809/25/2020 Not Available [facility] 3 02:56:01 Plantar fasciitis of right foot 40644528592 207077 Active 2019 Not Available [facility] 3 00:51:39 Injury of toe 249735038 Completed 201909/25/2020 Not Available [facility] 3 02:55:53 Injury of toe 503192331 Active 2019 Not Available [facility] 3 00:51:39 Avulsion of toenail 074296666 Active 2019 Not Available [facility] 3 00:51:39 Diabetic periphera l neuropath y 113508101 Active 2019 Not Available [facility] 3 00:51:39 Ganglion cyst 095349307 Active 2019 Not Available [facility] 3 00:51:40 Diabetes mellitus 30223356 Active 2019 Not Available [facility] 3 00:51:40 Dystrophi a unguium 37462726 Active 2020 Not Available [facility] 3 00:51:40 Selective immunoglo bulin G deficienc y 392528055 Active 2020 Not Available [facility] 3 00:51:39 Ex-smoker 8157438 Active 2020 Not Available [facility] 3 00:51:40 Pain of left knee joint 21809576090 4107 Active 2021 Not Available [facility] 3 00:51:40 Pain in left foot 89246697418 9107 Active 2021 Not Available [facility] 3 00:51:39 Dyslipide angela 935833438 Active 2021 Not Available [facility] 3 00:51:39 Hypothyro idism 97560364 Active 2021 Not Available [facility] 3 00:51:39 Well controlle d type 2 diabetes mellitus 523489031 Active 2021 Not Available [facility] 3 00:51:40 Cramp in lower limb 228117479 Active 2021 Not Available [facility] 3 00:51:40 Uncontrol led type 2 diabetes mellitus 082610880 Active 2021 Not Available [facility] 3 00:51:40 Chronic cough 86597658 Active 2021 Not Available [facility] 3 00:51:40 Foot pain 30306231 Active 2021 Not Available [facility] 3 00:51:40 Pain of left hip joint 92766305740 9100 Active 2021 Not Available [facility] 3 00:51:39 Pain in lower limb 66919551 Active 2021 Not Available [facility] 3 00:51:38 Acute upper respirato ry infection 28689168 Active 2021 Not Available [facility] 3 00:51:40 Bacterial infection caused by Pseudomon as 19619009 Active 2021 Not Available [facility] 3 00:51:40 Malignant neoplasm of ovary 000366565 Active 2021 Not Available [facility] 3 00:51:39 Urinary tract infectiou s disease 55873620 Active 2021 Not Available [facility] 3 00:51:40 Dry skin 57258569 Active 2021 Not Available [facility] 3 00:51:39 Hyperglyc emia 73916845 Active 2021 Not Available [facility] 3 00:51:40 Bacterial infection caused by Klebsiell a pneumonia e 076776755 Active 2021 Not Available [facility] 3 00:51:39 Multiple nodules of lung 354864457 Active 2021 Not Available [facility] 3 00:51:40 COVID-19 952268265 Active 2021 Not Available [facility] 3 00:51:40 Neuropath y 148349323 Active 2022 Not Available [facility] 3 00:51:39 Pruritic rash 04394286 Active 2022 Not Available [facility] 3 00:51:40 Type 2 diabetes mellitus without complicat ion 471540191 Active 2022 Not Available [facility] 3 00:51:39 Hyperlipi demia 78058776 Active 2022 Not Available [facility] 3 00:51:40 Leukocyto sis 532163554 Active 2022 Mar schneider MD [address], [place], [address] , [employer] [facility] [employer] 5 10:05:32 Steatotic liver disease 321132955 Active 2022 Not Available [facility] 3 00:51:39 Chronic kidney disease 576278021 Active 2022 Not Available [facility] 3 00:51:40 Gout 27142353 Active 2022 Not Available [facility] 3 00:51:40 Gastroeso phageal reflux disease without esophagit is 668494493 Active 2022 Not Available [facility] 3 00:51:39 Cyst of ovary 18603082 Active 2022 Not Available [facility] 3 00:51:40 Hypokalem ia 09933381 Active 2022 Mar schneider MD [address], [place], [address] , [employer] [facility] [email or web address] [facility] [employer] 5 10:16:58 Cough 06614516 Active 2022 JOJO Cabrera, [employer] [facility] [employer] [facility] 5 17:30:43 Infection caused by Pseudomon as aeruginos a 24268265 Active 2022 Not Available [facility] 3 00:51:39 Osteoporo sis 20506440 Active 2022 Not Available [facility] 3 00:51:40 Liver enzymes level above reference range 725915766 Active 2022 Not Available [facility] 3 00:51:40 Erythrocy tosis 373837980 Active 2022 Not Available [facility] 3 00:51:39 Osteoarth ritis of left knee joint 48785159561 9109 Active 2022 Not Available [facility] 3 00:51:39 Immunoglo bulin G subclass deficienc y 369262818 Active 2022 Not Available [facility] 3 00:51:39 Pneumonia caused by Streptoco ccus 55810682 Active 2022 Not Available [facility] 3 00:51:39 Acute urinary tract infection 433035986 Active 2023 JOJO Cabrera null, [place] [facility] 5 17:31:16 Skin lesion 29432887 Active 2023 Mar schneider MD [address], [place], [address] , [facility] - [facility] 4 10:10:19 Skin tag 288047467 Active 2023 Mar schneider MD [address], [place], [address] , [facility] 4 10:47:48 Plantar fasciitis of left foot 86338642485 566093 Active 2023 Romie Bond DPM [address], [place], [address] , [facility] 4 09:43:02 Pain of left heel 34257178765 83510 Active 2023 Romie Bond DPM [address], [place], [address] , [facility] 4 10:09:33 Knee pain Active 2023 Romie Bond DPM [address], [place], [address] , [facility] 4 10:15:40 Metatarsa lgia of left foot 00806391478 9106 Active 2023 Romie Bond DPM [address], [place], [address] , [facility] 4 14:58:03 Pain of left shoulder joint 21409659402 200679 Active 2024 Mar schneider MD [address], [place], [address] , [facility] 5 09:52:45 Pain of right shoulder region Active 2024 JOJO Cortés, [facility] 5 13:59:32 Pain of left shoulder region Active 2024 JOJO Cortés, [facility] 5 14:04:10 Productiv e cough 02530749 Active 2024 JOJO Cabrera, [facility] 5 14:51:14 Hypoglyce angela due to type 2 diabetes mellitus 75462594578 9103 Active 2024 JOJO Cabrera, [facility] 5 18:23:42 Hernia of anterior abdominal wall 845688710 Active 2024 Mar schneider MD [address], [place], [address] , [facility] 5 10:34:00 Pain of toe of right foot 40378428455 9101 Active 2024 Romie Bond DPM [address], [place], [address] , [facility] 5 10:55:53 Ingrowing toenail 354110557 Active 2024 Romie Bond DPM [address], [place], [address] , [employer] 09:50:35 Notes:Medical History: Depre ssion Rhinitis IgE 29 IU/mL Hypogammaglobulinemia (IgG2) Obesity with mild OSAHS, AHI = 11, 07/28/16, on CPAP c/o Provider Plus Hypothyroidism Hyperlipidemia Hypertension CAD s/p AL Alpha-1 antitrypsin PiMM 135 mg% Mod COPD T2DM with neuropathy DOLORES PLMD Iron deficiency Vit E deficiency Vit D deficiency Gout Osteoarthritis Tinea corporis Onychomycosis Medical History: Bilateral cataract extraction with IOL 2012 One coronary artery stent placement 2014 Some problems listed in Document: #[id number] could not be added to this patient's chart. Please review this document and add these problems to the patient's chart manually as needed. Problem Notes None recorded. Procedures Surgical History Date Name Laterality Status Provider Name and Address Organization Details Recorded Time 09/24/20 25 Nail Debridement completed Romie Bond DPM [address], [place], [address], [employer] 09/24/2025 10:04:48 06/27/20 25 Medicare Wellness CPT Code, subsequent completed Milka Fuentes [employer] 06/26/2025 08:09:53 05/13/20 25 Ortho - Cortisone Injection completed Sujatha Klein NP [address], [place], [address], [employer] 05/13/2025 09:50:39 05/29/20 24 Plantar Fascia Injection Left Foot completed Romie Bond DPM [address], [address], [place], [address], [employer] 05/29/2024 09:45:35 04/17/20 24 Medicare Wellness CPT Code, subsequent completed Jez Renee LPN [employer] 04/13/2024 09:51:17 04/17/20 24 Advanced Care Planning completed Jez Renee LPN [employer] 04/17/2024 10:30:52 02/28/20 24 Nail Debridement completed Romie Bond DPM [address], [place], [address], [employer] [facility] [employer] [facility] 02/28/2024 15:27:21 10/25/20 23 Nail Debridement completed Romie Bond DPM [address], [place], [address], [facility] [employer] [facility] [employer] [facility] 10/26/2023 11:48:42 06/28/20 23 Nail Debridement completed Romie Bond DPM [address], [place], [address], [employer] [facility] [employer] [facility] 07/14/2023 10:53:40 03/03/20 23 Nail Debridement completed Romie Bond DPM [address], [place], [address], [employer] [facility] [email or web address] 03/03/2023 10:48:06 06/01/20 22 Hysterectomy completed Not Available [facility] 01/12/2023 02:46:50 08/25/20 21 Most Recent Bone Density completed Not Available [facility] 01/12/2023 02:46:43 08/31/20 19 Date of Last Colonoscopy completed Not Available [facility] 01/12/2023 02:46:43 08/31/20 19 Colonoscopy with biopsy completed Not Available [facility] 01/12/2023 02:46:50 08/29/20 18 laparoscopic cholecystectomy completed Not Available [facility] 01/12/2023 02:46:50 Stent Placement completed Not Available [facility] 01/12/2023 02:46:50 Foot Surgery completed Not Available [facility] 01/12/2023 02:46:50 Knee Surgery completed Not Available [facility] 01/12/2023 02:46:50 Cataract Surgery completed Not Available [facility] 01/12/2023 02:46:50 fallopian tube excision completed Not Available [facility] 01/12/2023 02:46:50 removal of implantable venous access port completed JOJO Cabrera [employer] [facility] [employer] [facility] [employer] 06/02/2023 09:53:18 Imaging Results None recorded. Procedure [...] Not available Not available Not available 01/12/2023 64892 8003 SNOMED Not Available [facility] 3 03:14:06 5525 Levaquin medicatio n hives moderate Not available 01/12/2023 26462 2 RxNorm pt state s that she gets littl e bumps all over her body looks like she has chick en pox Not Available [facility] 3 03:14:06 5526 doxycycli ne Not available Not available Not available Not available 01/12/2023 3640 RxNorm Not Available [facility] 3 03:14:06 Medications Name Sig Start Date [...] mL by injectio n route. 06/27 completed [facility]: 0003-049 4-20 Not Available Not Available Not [...] administ ered by the provider 04/08 completed [facility]: 0409-427 17 Not Available Not Available Not Available calcium [...] %) injection solution in office 12/08 completed [facility] 91819-54 02-12 Not Available Not Available Not Available Adult [...] Not Available Not Available Not Available [facility] [employer] U-300 Insulin 300 unit/mL (1.5 mL) subcutane [...] Updated DateTime 5 160.02 cm 32.1 kg/m2 22900.2 2 g 83 /min 14 /min 98 % 89/53 mm[Hg] Pamela TYSON - [place] [email or web address] 5 09:26:57 Social History Question Answer Notes LastModified by Organizat ion Details LastModified Time Tobacco Smoking Status Former Smoker Not Available [facility] 01/12/2023 02:30:13 Do You Have An Advance Directive? No Information Provided To Patient. [id number].[id number] Information not available 01/12/2023 Are You Blind Or Do You Have Difficulty Seeing? No MIGRATION.53288 23999 Information not available 01/12/2023 What Is Your Level Of Caffeine Consumption? Moderate Coffee Daily And Soda Weekly MIGRATION.29227 65866 Information not available 01/12/2023 In The 14 Days Before Symptom Onset, Have You Had Close Contact With A Laboratory-confi rmed COVID-19 While That Case Was Ill? No MIGRATION.45935 54598 Information not available 01/12/2023 In The 14 Days Before Symptom Onset, Have You Had Close Contact With A Person Who Is Under Investigation For COVID-19 While That Person Was Ill? No MIGRATION.66715 04248 Information not available 01/12/2023 Are You Deaf Or Do You Have Serious Difficulty Hearing? No MIGRATION.46660 07107 Information not available 01/12/2023 What Type Of Diet Are You Following? REGULAR MIGRATION. 07395 Information not available 01/12/2023 What Is The Highest Grade Or Level Of School You Have Completed Or The Highest Degree You Have Received? [id number] MIGRATION.85807 16465 Information not available 01/12/2023 Have There Been Any Changes To Your Family Or Social Situation? No MIGRATION.03209 29482 Information not available 01/12/2023 What Is The Fluoride Status Of Your Home? Unknown MIGRATION.98348 64772 Information not available 01/12/2023 When Did You Quit Smoking? 6-10yearssi ncelastciga rette MIGRATION.09630 55449 Information not available 01/12/2023 Are There Any Guns Present In Your Home? Yes MIGRATION.18579 84282 Information not available 01/12/2023 Do You Use Insect Repellent Routinely? No MIGRATION.80710 88987 Information not available 01/12/2023 [address] Do You Live? [place] MIGRATION.31970 30411 Information not available 01/12/2023 Presence Of Domestic Violence No Information not available 04/17/2024 Guns Present In The Home? Yes Information not available 04/17/2024 Are You Able To Care For Yourself? Yes [email or web address] Information not available 04/17/2024 Are You Blind Or Do Yo Have Difficulty Seeing? No [email or web address] Information not available 04/17/2024 Are You Deaf Or Do You Have Serious Difficulty Hearing? No [email or web address] Information not available 04/17/2024 General Stress Level? Low [email or web address] Information not available 04/17/2024 Live Alone Of With Others? Alone [email or web address] Information not available 04/17/2024 Do You Have A Medical Power Of Chemist Food? No MIGRATION.11819 97564 Information not available 01/12/2023 What Was The Date Of Your Most Recent Tobacco Screening? 05/13/2025 [email or web address] Information not available 05/13/2025 What Is Your Current Pack Years? 30ormorepac kyears MIGRATION.71017 30680 Information not available 01/12/2023 Do You Have Any Pets? Yes MIGRATION.76591 55864 Information not available 01/12/2023 What Is Your Relationship Status? MIGRATION.79971 14650 Information not available 01/12/2023 Do You Use Your Seat Belt Or Car Seat Routinely? Yes MIGRATION.82475 61654 Information not available 01/12/2023 Do You Have Smoke And Carbon Monoxide Detectors In Your Home? Yes MIGRATION.79163 20336 Information not available 01/12/2023 At What Age Did You Start Smoking Tobacco? 10 MIGRATION.86840 37611 Information not available 01/12/2023 Are You Passively Exposed To Smoke? No MIGRATION.60660 87116 Information not available 01/12/2023 Are There Any Smokers In Your House? No MIGRATION.66986 69387 Information not available 01/12/2023 How Much Tobacco Do You Smoke? No MIGRATION.35775 72001 Information not available 01/12/2023 Do You Use Sunscreen Routinely? No MIGRATION.00453 26385 Information not available 01/12/2023 Has Tobacco Cessation Counseling Been Provided? No N/A MIGRATION.44875 05380 Information not available 01/12/2023 How Many Years Have You Smoked Tobacco? 46 MIGRATION.35188 94341 Information not available 01/12/2023 Have You Recently Traveled Abroad? No [id number] Information not available 01/12/2023 Do You Have Difficulty Walking Or Climbing Stairs? Yes MIGRATION.39967 [id number] Information not available 01/12/2023 Do You Have Any Dietary Restrictions? No MIGRATION.27644 95716 Information not available 01/12/2023 Sex: Female Functional Status Question Answer Note LastModified by [employer] ion Details LastModified Time Do you use any illicit or recreational drugs? No MIGRATION.82531 [id number] Information not available 01/12/2023 Do you or have you ever used any other forms of tobacco or nicotine? No MIGRATION.89785 60851 Information not available 01/12/2023 What is your level of alcohol consumption? Occasional MIGRATION.94709 98021 Information not available 01/12/2023 Do you or have you ever used smokeless tobacco? Never used smokeless tobacco MIGRATION.41963 63395 Information not available 01/12/2023 Are you currently employed? No Disabled [email or web address] Information not available 12/20/2024 Do you have transportation difficulties? No MIGRATION.04595 90710 Information not available 01/12/2023 Are you able to walk independently without assistance or assistive devices? [employer]WOREST MIGRATION.45092 00133 Information not available 01/12/2023 Do you have difficulty doing errands alone? No MIGRATION.20552 28495 Information not available 01/12/2023 Are you able to care for yourself independently? Yes MIGRATION.81286 80173 Information not available 01/12/2023 Do you have difficulty dressing, bathing, grooming, or toileting? No MIGRATION.99993 44443 Information not available 01/12/2023 Do you or have you ever used e-cigarettes or vape? Never used electronic cigarettes MIGRATION.40558 28793 Information not available 01/12/2023 What is your exercise level? Occasional walk MIGRATION.66987 77767 Information not available 01/12/2023 Mental Status Question Answer Note LastModified by Organizat ion Details LastModified Time Do you feel stressed (tense, restless, nervous, or anxious, or unable to sleep at night)? [id number] MIGRATION.[id number] 26 Information not available 01/12/2023 Do you have difficulty concentrating, remembering or making decisions? No MIGRATION.[id number] 26 Information not available 01/12/2023 Family History Relationship Description Onset Age of this Age Resolved Age Notes LastModified by Organization Details LastModified Time Unspecified Relation Heart disease MIGRATION.734 [id number] Not available 01/12/2023 02:46:52 Unspecified Relation Family history of stroke MIGRATION.335 [id number] Not available 01/12/2023 02:46:52 Unspecified Relation Family history of malignant neoplasm MIGRATION.797 [id number] Not available 01/12/2023 02:46:52 Unspecified Relation History of hypertension MIGRATION.617 [id number] Not available 01/12/2023 02:46:52 Unspecified Relation Diabetes mellitus MIGRATION.302 [id number] Not available 01/12/2023 02:46:52 Unspecified Relation Kidney disease MIGRATION.890 [id number] Not available 01/12/2023 02:46:52 Brother Myocardial infarction MIGRATION.266 [id number] Not available 01/12/2023 02:46:52 Brother Cirrhosis of liver MIGRATION.915 [id number] Not available 01/12/2023 02:46:52 Sister Myocardial infarction MIGRATION.321 [id number] Not available 01/12/2023 02:46:52 Sister Cerebrovascu lar accident MIGRATION.346 [id number] Not available 01/12/2023 02:46:52 Medical History Condition [...] HAVE YOU BEEN HOSPITALIZED OR SEEN IN [facility] IN THE PAST YEAR ? Y BURSITIS [...] B, unspecified formulation 3 completed Not Available [facility] 11/02/2023 00:51:44 Influenza, split virus, trivalent, preservative 1 completed Not Available [facility] 06/27/2025 09:24:40 HepB-CpG 3 completed Not Available [facility] 06/27/2025 09:24:40 COVID-19, mRNA, LNP-S, bivalent, PF, 30 mcg/0.3 mL dose 3 completed Not Available [facility] 06/27/2025 09:24:40 COVID-19, mRNA, LNP-S, PF, 50 mcg/0.5 mL 3 completed Not Available [facility] 06/27/2025 09:24:40 Influenza, high-dose, quadrivalent, PF 3 completed Not Available [facility] 06/27/2025 09:24:40 RSV, recombinant, protein subunit RSVpreF, adjuvant reconstituted, 0.5 mL, PF 3 completed Not Available [facility] 06/27/2025 09:24:40 Influenza, high-dose, trivalent, PF 4 completed Not Available [facility] 06/27/2025 09:24:40 COVID-19, mRNA, LNP-S, PF, 50 mcg/0.5 mL 4 completed Not Available [facility] 06/27/2025 09:24:40 COVID-19, mRNA, LNP-S, bivalent, PF, 50 mcg/0.5 mL or 25mcg/0.25 mL dose 2 completed Not Available [facility] 11/02/2023 00:51:44 COVID-19, mRNA, LNP-S, bivalent, PF, 50 mcg/0.5 mL or 25mcg/0.25 mL dose 2 completed Not Available [facility] 11/02/2023 00:51:44 Influenza, split virus, quadrivalent, PF 0 completed Not Available [facility] 11/02/2023 00:51:44 pneumococcal polysaccharide PPV23 6 completed Not Available [facility] 11/02/2023 00:51:44 COVID-19 vaccine, vector-nr, rS-Ad26, PF, 0.5 mL 1 completed Not Available [facility] 11/02/2023 00:51:44 Influenza, split virus, quadrivalent, preservative 9 completed Not Available [facility] 11/02/2023 00:51:44 Tdap 9 completed Not Available [facility] 11/02/2023 00:51:44 Influenza, high-dose, quadrivalent, PF 2 completed Not Available [facility] 11/02/2023 00:51:44 COVID-19, mRNA, LNP-S, PF, 100 mcg/0.5mL dose or 50 mcg/0.25mL dose 1 completed Not Available [facility] 11/02/2023 00:51:44 Influenza, split virus, trivalent, preservative 3 completed Not Available [facility] 11/02/2023 00:51:44 Past Encounters Encounter ID Performer Location Encounter Start Date Encounter Closed Date Diagnosis/Indication Diagnosis SNOMED-CT Code Diagnosis ICD10 Code Diagnosis IMO Codes Diagnosis Note [id number] Romie Bond DPM [facility] [place] [address] [facility] [address] [place] [address] 09/24/2025 09:22:38 09/26/2025 14:59:42 Pain of toe of right foot 1051923490 31838 M79.674 680487 right 3rd toeminimal weight-aashish ringrice therapySup portive shoe gearObtain x-raysfoll ow-up x-rays Ingrowing toenail 121853 009 L60.0 1001 medial left great toenail debrided without incidentco ntinue to monitor if continues to be problemati c may require partial matrixecto my Type 2 kelly betes mellitus without complication [id number] E11.9 Z79.4 Continue with diabetic control per PCP recommenda tionsfollo w-up 3 months for diabetic foot care Health Concerns Section Related Observation LastModified by Organization Detai ls LastModified Time None Recorded Concern Status LastModified by Organization Details LastModified Time None Recorded Payers Encounter Date Sequence Insurance Name Policy Number Policy Gates Covered Member ID Gates Member ID Guarantor Name 09/24/2025 1 [facility] (MEDICARE REPLACEMENT/AD VANTAGE - PPO) [id number] Tsering Parham [id number] Tsering Parham 09/24/2025 2 [place]SECOND[place]AN WHEN MEDICARE OR MEDICARE REPLACEMENT PRIMARY) Tsering Parham [id number] Tsering Parham Notes Date Note Type Note Provider Name and Address Organization Details Recorded Time 09/24/2025 text/html patient here for diabetic foot [...] a cut-out. Patient denies any other complaints. Romie Bond DPM [address] [facility], [place] [address], [place], [address], [place] - [facility] 09/24/2025 10:05:39 OBGyn Episode No OBEpisode recorded.
--- OUTSIDE RECORDS SUMMARY | 2025-10-04 12:56 | XMS_ITS | Clinical Summary ---
Author Organization [facility] [email or web address] Address [facility] [place] [address] Care Team Providers Care Brake Drum Lathe Operator Name Role Phone Mar Reynolds MD Primary Care Provider Source Comments [facility] [email or web address],non-owned Affiliates and Associated Physician Practices is amultiple site organization consisting of ambulatory clinics and hospital sitesin [place], [place], [place] and [place]. This disclosure is being madepursuant to the Care Everywhere program and may not contain all information available regarding this patient. Last updated 18.[facility] [email or web address] Allergies Active Allergy Reactions Criticality Noted Date [...] fluticasone propionate (FLONASE) 50 MCG/ACT nasal spray [place] 2 (two) sprays into each nostril once [...] on file Legal Sex Female 9:49 AM [employer] Gender Identity Not on file Sexual Orientation [...] 50+ (1 of 2 - PCV) 1975 Respiratory Syncytial Virus (RSV) Vaccine Pt: or over 60 yrs (1 - Risk 50-74 years 1-dose series) 2006 ZOSTER VACCINE (1 of 2) 2006 DIABETES RETINOPATHY SCREENING 02/05/2019 DIABETES-FOOT EXAM WITH MONOFILAMENT 02/05/2019 DIABETES-HGB A1C 07/11/2020 01/11/2020 DIABETES-SERUM CREATININE 01/11/2021 01/11/2020 HEPATITIS B VACCINE (2 of 3 - 19+ 3-dose series) 05/12/2023 04/14/2023 DEPRESSION SCREENING 11/14/2024 DIABETES - URINE PROTEIN SCREENING 11/14/2024 MEDICARE AWV CALENDAR YEAR 2024 COVID-19 VACCINE ( season) 2025 09/06/2022, 09/06/2022, 03/01/2022, Additional history exists INFLUENZA VACCINE (#1) 2025 , 08/27/2020, 07/19/2019, [...] On track( 025 8:23 AM CDT) Moises Butts RN Note: Expected end date: Interventions: Take [...] (EXTERNAL) Blood BLOOD SPECIMEN / Unknown 01/11/2020 Result [facility] Provider LAB - CHEMISTRY ORDERABLE S Final Result * (ABNORMAL) HEMOGLOBIN A1C (EXTERNAL RESULT ENTRY) (01/11/2020) Hemoglobin A1c (EXTERNAL RESULT) 7.4(A) 4.0 - 6.0 % Blood BLOOD SPECIMEN / Unknown 01/11/2020 Result [facility] Provider LAB - CHEMISTRY ORDERABLE S [...] (EXTERNAL) Blood 02/26/2019 3:06 PM CDT Result [facility] Provider LAB - CHEMISTRY ORDERABLE S Final Result from Last 3 Months or Most Recently Relevant to Health Maintenance Insurance MEDICAID - OUT OF STATE [facility] MANAGED MEDICARE ADV * Guarantor: Tsering Garza Account Type Relation to Patient Date of Phone Billing Address Personal/Family Self [address] [facility] [address] [place] [address] [facility] MANAGED MEDICARE ADV [facility] MEDICAID Care Teams Brake Drum Lathe Operator Relationship Specialty Start Date End Date Mar Reynolds MD [address] [address] PCP - General Internal Medicine 12/27/18
--- OUTSIDE RECORDS SUMMARY | 2025-10-04 12:56 | XMS_ITS | Patient Health Record ---
Author Organization [facility] Address [address] [place] [address] [place] [address] Care Team Providers Care Manager Department Name Role Phone Damian Rodriguez Unavailable [phone] Reason For Referral No Information Medications Medication SIG (Take, Route, Frequency, Duration) Notes Start Date End Date Status Ergocalciferol 1.25 MG (94117 UT) 1 capsule Orally Once a week; Duration: 30 days 07/03/2025 10/30/2025 Active Vitamin D (Ergocalciferol) 1.25 MG (12894 UT) TAKE 1 CAPSULE BY MOUTH 1 TIME A WEEK; Duration: 91 Active Klor-Con 20 MEQ MIX AND DRINK 1 PACK ET BY MOUTH DAILY WITH FOOD; Duration: 90 Active Calcitriol 0.25 MCG TAKE 1 CAPSULE BY MO UTH TWICE DAILY; Duration: 90 Active Potassium Chloride ER 20 MEQ TAKE 1 TABLET BY MOUTH TWICE DAILY WITH FOOD; Duration: 90 Active Cipro 500 MG 1 tablet Orally ever y 12 hrs; Duration: 10 01/18/2024 Active Jardiance 10 MG TAKE 1 TABLET BY MAY TH DAILY; Duration: 30 Active Allopurinol 300 MG TAKE 1 TABLET BY MAY TH DAILY; Duration: 90 Active Medrol 4 MG as directed Orally 03/10/2022 Active Protonix 40 MG 1 tablet Orally Once a day; Duration: 90 day(s) 03/10/2022 Active Allopurinol 300 MG 1 tablet Orally Once a day; Duration: 90 days 07/12/2025 01/07/2026 Active Torsemide 100 MG 1/2 tablet Orally tw ice a day; Duration: 90 days Active Azithromycin 1 GM 1 martina as directed 03/10/2022 Active Social History Sex Assigned At : Social History Observation Description Sex Assigned At Female Problems Problem Type SNOMED Code ICD Code Onset Dates Problem Status W/U Status Risk Notes Problem Hypothyroidism (18503055) Hypothyroidism, unspecified (E03.9) Active confirmed Problem Hyperglycemia due to type 2 diabetes mellitus (194058180792552) Type 2 diabetes mellitus with hyperglycemia (E11.65) Active confirmed Problem Primary hyperparathyroidism (14096191) Primary hyperparathyroidism (E21.0) Active confirmed Problem Secondary hyperparathyroidism (70129612) Secondary hyperparathyroidism, not elsewhere classified (E21.1) Active confirmed Problem Vitamin D deficiency (21032744) Vitamin D deficiency, unspecified (E55.9) Active confirmed Problem Hyperlipidemia (52296632) Hyperlipidemia, unspecified (E78.5) Active confirmed Problem Metabolic disorder (50716340) Metabolic disorder, unspecified (E88.9) Active confirmed Problem Hernia of abdominal cavity (disorder) (98476984) Unspecified abdominal hernia without obstruction or gangrene (K46.9) Active confirmed Problem Renal osteodystrophy (09640663) Renal osteodystrophy (N25.0) Active confirmed Problem History of malignant neoplasm of ovary (092069702) Personal history of malignant neoplasm of ovary (Z85.43) Active confirmed Problem Essential hypertension (26430630) Essential hypertension (I10) Active confirmed Problem Viral upper respiratory tract infection (550311628) Viral upper respiratory tract infection (J06.9) Active confirmed Problem Chronic kidney disease stage 3A (disorder) (595656925) Chronic kidney disease, stage 3a (N18.31) Active confirmed Problem Coronary artery disease (68766462) CAD (coronary artery disease) (I25.10) Active confirmed Encounters Encounter Location Date Provider Diagnosis [facility] [address] [address] 10/05/2024 Damian Rodriguez Chronic kidney disea se, stage 3 unspecified N18.30 ; Type 2 diabetes mellitus with hyperglycemia E11.65 ; Renal osteodystrophy N25.0 ; Secondary hyperparathyroidism, not elsewhere classified E21.1 ; Vitamin D deficiency, unspecified E55.9 ; Viral upper respiratory tract infection J06.9 and Essential hypertension I10 [facility] [address] [address] 11/30/2024 Damian Rodriguez Chronic kidney disea se, stage 3 unspecified N18.30 ; Type 2 diabetes mellitus with hyperglycemia E11.65 ; Hypokalemia E87.6 ; Edema, unspecified R60.9 ; Hyperlipidemia, unspecified E78.5 ; Renal osteodystrophy N25.0 and Secondary hyperparathyroidism, not elsewhere classified E21.1 [facility] [address] [place] [address] 01/18/2025 Damian Rodriguez Chronic kidney disea se, stage 3 unspecified N18.30 ; Type 2 diabetes mellitus with hyperglycemia E11.65 ; Renal osteodystrophy N25.0 ; Secondary hyperparathyroidism, not elsewhere classified E21.1 ; Vitamin D deficiency, unspecified E55.9 ; Viral upper respiratory tract infection J06.9 ; Essential hypertension I10 and Hyperlipidemia, unspecified E78.5 [facility] [address] [place] [address] 02/27/2025 Damian Rodriguez Chronic kidney disea se, [...] abdominal hernia without obstruction or gangrene K46.9 [facility] [address] [place] [address] 03/04/2025 Damian Rodriguez Chronic kidney disea se, [...] abdominal hernia without obstruction or gangrene K46.9 [facility] [address] [place] [address] 03/22/2025 Damian Rodriguez Chronic kidney disea se, [...] abdominal hernia without obstruction or gangrene K46.9 [facility] [address] [address] 04/24/2025 Damian Rodriguez Chronic kidney disea se, [...] Hypothyroidism, unspecified E03.9 and Primary hyperparathyroidism E21.0 [facility] [address] [address] 07/03/2025 Damian Rodriguez Chronic kidney disea se, [...] history of malignant neoplasm of ovary Z85.43 [facility] [address] [place] [address] 09/23/2025 Damian Rodriguez Chronic kidney disea se, [...] history of malignant neoplasm of ovary Z85.43 [facility] [address] [address] 11/30/2024 Damian [facility] [address] [address] 02/27/2025 Damian [facility] [address] [address] 02/27/2025 Damian [facility] [address] [address] 03/04/2025 Damian Rodriguez [facility] [place] [facility] [address] [place] [address] [place] [address] 03/05/2025 Damian Rodriguez [facility] [address] [place] [address] 07/03/2025 Damian Rodriguez [facility] [address] [address] 07/03/2025 [place] [address] [place] [address] 07/12/2025 Damian [facility] [address] [address] 07/23/[address] [place] [address] [place] [address] 07/30/2025 Damian Rodriguez [facility] [address] [address] 07/30/2025 Damian Rodriguez [facility] [place] [facility] [address] [place] [address] [place] [address] 09/23/2025 Damian Rodriguez Assessments Encounter Date Diagnosis (ICD Code) Assessment Notes Treatment Notes Treatment Clinical Notes Section Notes 10/05/2024 Chronic kidney disea se, stage 3 unspecified (ICD-10 - N18.30) 11/30/2024 Type 2 diabetes mellitus with hyperglycemia (ICD-10 - E11.65) 11/30/2024 Chronic kidney disea se, stage 3 unspecified (ICD-10 - N18.30) 01/18/2025 Chronic kidney disea se, stage 3 unspecified (ICD-10 - N18.30) 02/27/2025 Chronic kidney disea se, stage 3 unspecified (ICD-10 - N18.30) 03/04/2025 Chronic kidney disea se, stage 3 unspecified (ICD-10 - N18.30) 03/22/2025 Chronic kidney disea se, stage 3 unspecified (ICD-10 - N18.30) 04/24/2025 Essential hypertensi on (ICD-10 - I10) 04/24/2025 Chronic kidney disea se, stage 3a (ICD-10 - N18.31) 07/03/2025 Essential hypertensi on (ICD-10 - I10) 07/03/2025 Chronic kidney disea se, stage 3a (ICD-10 - N18.31) 09/23/2025 Essential hypertensi on (ICD-10 - I10) 09/23/2025 Chronic kidney disea se, stage 3a (ICD-10 - N18.31) 09/23/2025 Type 2 diabetes mellitus with hyperglycemia (ICD-10 - E11.65) 04/24/2025 Type 2 diabetes mellitus with hyperglycemia (ICD-10 - E11.65) 07/03/2025 Type 2 diabetes mellitus with hyperglycemia (ICD-10 - E11.65) 03/22/2025 Essential hypertensi on (ICD-10 - I10) 03/04/2025 Essential hypertensi on (ICD-10 - I10) 02/27/2025 Essential hypertensi on (ICD-10 - I10) 01/18/2025 Type 2 diabetes mellitus with hyperglycemia (ICD-10 - E11.65) 11/30/2024 Hypokalemia (ICD-10 - E87.6) 10/05/2024 Type 2 diabetes mellitus with hyperglycemia (ICD-10 - E11.65) 10/05/2024 Renal osteodystrophy (ICD-10 - N25.0) 03/04/2025 Type 2 diabetes mellitus with hyperglycemia (ICD-10 - E11.65) 02/27/2025 Type 2 diabetes mellitus with hyperglycemia (ICD-10 - E11.65) 11/30/2024 Edema, unspecified (ICD-10 - R60.9) 01/18/2025 Renal osteodystrophy (ICD-10 - N25.0) 03/22/2025 Type 2 diabetes mellitus with hyperglycemia (ICD-10 - E11.65) 09/23/2025 Renal osteodystrophy (ICD-10 - N25.0) 04/24/2025 Renal osteodystrophy (ICD-10 - N25.0) 07/03/2025 Renal osteodystrophy (ICD-10 - N25.0) 09/23/2025 Secondary hyperparathyroidism, not elsewhere classified (ICD-10 - E21.1) 03/04/2025 Renal osteodystrophy (ICD-10 - N25.0) 03/22/2025 Renal osteodystrophy (ICD-10 - N25.0) 04/24/2025 Secondary hyperparathyroidism, not elsewhere classified (ICD-10 - E21.1) 07/03/2025 Secondary hyperparathyroidism, not elsewhere classified (ICD-10 - E21.1) 11/30/2024 Hyperlipidemia, unspecified (ICD-10 - E78.5) 02/27/2025 Renal osteodystrophy (ICD-10 - N25.0) 10/05/2024 Secondary hyperparathyroidism, not elsewhere classified (ICD-10 - E21.1) 01/18/2025 Secondary hyperparathyroidism, not elsewhere classified (ICD-10 - E21.1) 01/18/2025 Vitamin D deficiency , unspecified (ICD-10 - E55.9) 11/30/2024 Renal osteodystrophy (ICD-10 - N25.0) 10/05/2024 Vitamin D deficiency , unspecified (ICD-10 - E55.9) 03/04/2025 Secondary hyperparathyroidism, not elsewhere classified (ICD-10 - E21.1) 02/27/2025 Secondary hyperparathyroidism, not elsewhere classified (ICD-10 - E21.1) 07/03/2025 Vitamin D deficiency , unspecified (ICD-10 - E55.9) 04/24/2025 Vitamin D deficiency , unspecified (ICD-10 - E55.9) 03/22/2025 Secondary hyperparathyroidism, not elsewhere classified (ICD-10 - E21.1) 09/23/2025 Vitamin D deficiency , unspecified (ICD-10 - E55.9) 07/03/2025 Viral upper respirat ory tract infection (ICD-10 - J06.9) 09/23/2025 Viral upper respirat ory tract infection (ICD-10 - J06.9) 03/22/2025 Vitamin D deficiency , unspecified (ICD-10 - E55.9) 04/24/2025 Viral upper respirat ory tract infection (ICD-10 - J06.9) 02/27/2025 Vitamin D deficiency , unspecified (ICD-10 - E55.9) 03/04/2025 Vitamin D deficiency , unspecified (ICD-10 - E55.9) 01/18/2025 Viral upper respirat ory tract infection (ICD-10 - J06.9) 10/05/2024 Viral upper respirat ory tract infection (ICD-10 - J06.9) 11/30/2024 Secondary hyperparathyroidism, not elsewhere classified (ICD-10 - E21.1) 10/05/2024 Essential hypertensi on (ICD-10 - I10) 02/27/2025 Viral upper respirat ory tract infection (ICD-10 - J06.9) 01/18/2025 Essential hypertensi on (ICD-10 - I10) 07/03/2025 Hyperlipidemia, unspecified (ICD-10 - E78.5) 03/04/2025 Viral upper respirat ory tract infection (ICD-10 - J06.9) 04/24/2025 Hyperlipidemia, unspecified (ICD-10 - E78.5) 03/22/2025 Viral upper respirat ory tract infection (ICD-10 - J06.9) 09/23/2025 Hyperlipidemia, unspecified (ICD-10 - E78.5) 09/23/2025 Metabolic disorder, unspecified (ICD-10 - E88.9) 03/22/2025 Hyperlipidemia, unspecified (ICD-10 - E78.5) 07/03/2025 Metabolic disorder, unspecified (ICD-10 - E88.9) 04/24/2025 Metabolic disorder, unspecified (ICD-10 - E88.9) 02/27/2025 Hyperlipidemia, unspecified (ICD-10 - E78.5) 03/04/2025 Hyperlipidemia, unspecified (ICD-10 - E78.5) 01/18/2025 Hyperlipidemia, unspecified (ICD-10 - E78.5) 03/04/2025 Metabolic disorder, unspecified (ICD-10 - E88.9) 02/27/2025 Metabolic disorder, unspecified (ICD-10 - E88.9) 04/24/2025 Unspecified abdomina l hernia without obstruction or gangrene (ICD-10 - K46.9) 07/03/2025 Unspecified abdomina l hernia without obstruction or gangrene (ICD-10 - K46.9) 03/22/2025 Metabolic disorder, unspecified (ICD-10 - E88.9) 09/23/2025 Unspecified abdomina l hernia without obstruction or gangrene (ICD-10 - K46.9) 09/23/2025 Hypothyroidism, unspecified (ICD-10 - E03.9) 03/22/2025 Unspecified abdomina l hernia without obstruction or gangrene (ICD-10 - K46.9) 04/24/2025 Hypokalemia (ICD-10 - E87.6) 07/03/2025 Hypothyroidism, unspecified (ICD-10 - E03.9) 02/27/2025 Unspecified abdomina l hernia without obstruction or gangrene (ICD-10 - K46.9) 03/04/2025 Unspecified abdomina l hernia without obstruction or gangrene (ICD-10 - K46.9) 07/03/2025 Primary hyperparathyroidism (ICD-10 - E21.0) 04/24/2025 Hypothyroidism, unspecified (ICD-10 - E03.9) 09/23/2025 Primary hyperparathyroidism (ICD-10 - E21.0) 09/23/2025 CAD (coronary artery disease) (ICD-10 - I25.10) 07/03/2025 Hypokalemia (ICD-10 - E87.6) 04/24/2025 Primary hyperparathyroidism (ICD-10 - E21.0) 09/23/2025 Personal history of malignant neoplasm of ovary (ICD-10 - Z85.43) 07/03/2025 CAD (coronary artery disease) (ICD-10 - I25.10) 07/03/2025 Glycosuria (ICD-10 - R81) 07/03/2025 Personal history of malignant neoplasm of ovary (ICD-10 - Z85.43) Plan Of Treatment Next Appt Details Provider Name:Damian Rodriguez , 10/18/2025 02:30:00 PM, [address], [facility] [address], [place], [address],
--- OUTSIDE RECORDS SUMMARY | 2025-10-04 12:56 | XMS_ITS | Clinical Summary ---
Author Organization [facility] Address [facility] [place] [address] Care Team Providers Care Rehabilitation Therapy Technician Name Role Phone Unavailable Primary Care Provider [...] HFA) 108 (90 Base) MCG/ACT inhalerIndicatio ns:Asthma ([facility]),COPD (chronic obstructive pulmonary disease) ([facility]) Inhale 2 puffs into the lungs every 6 (six) hours as needed for Wheezing. 12/01/2018 Active Active Problems Problem Noted Date Diagnosed Date Asthma 05/26/2017 COPD (chronic obstructive pulmonary disease) Social History Tobacco Use Types Packs/Day Years [...] 2006 Dexa Scan (General) 2021 COVID-19 Vaccine (2024-2 6 season) 2025 Influenza Adult (#1) 2025 RSV Immunization or 60+ Years (1 - 1-dose 75+ series) 2031 Hepatitis A Vaccines Aged Out No long er eligible based on patient's age to complete this topic Meningococcal B Vaccine Aged Out No l onger eligible based on patient's age to complete this topic Meningococcal Vaccine Aged Out No deneen marvin eligible based on patient's age to complete this topic RSV Immunizations Under 20 Months Aged Out No longer eligible based on patient's age to complete this topic
--- OUTSIDE RECORDS SUMMARY | 2025-10-04 12:56 | XMS_ITS | Encounter Summary ---
Demographics Address [address] [place] [address] Mobile Phone Home Phone Preferred Language Comoran Marital Status Single Anabaptist Affiliation Unknown Race White Ethnic Group Not or Lati no Author Organization [facility] Healthcare Address [address] [place] [address] Care Team Providers Care Manager Spa Name Role Phone Khalif Reynolds MD Primary Care Provide r Chriss Hendrickson MD Unavailable [phone] Zaid Adams MD Unavailable [phone] Nadir Ross MD Unavailable [phone] Asad Aldridge MD Unavailable [phone] Encounter Details Date Type Department Care Team (Late st Contact Info) Description 09/02/2022 Telephone [facility] Radiology [address] [place] [address] Nicolasa Gilbert, RN Social History Tobacco Use [...] on file Legal Sex Female 12:59 PM [employer] Gender Identity Not on file Sexual Orientation Not on file documented as of this encounter Functional Status * Question Answer Date of Assessment Author BP Location Right arm 09/03/2022 7:35 AM Lola Oleary RN BP Method Automatic 09/03/2022 7:35 AM Lola Oleary RN MAP (mmHg) 92 09/03/2022 7:35 AM Lola Oleary RN * Parks Fall Risk Question Answer Date of Assessment Author History of Falling 0 09/03/2022 7:35 AM Lola Dotson RN Secondary Diagnosis 15 09/03/2022 7:35 AM Lola Delacruz RN Ambulatory Aids 0 09/03/2022 7:35 AM BRANDON Br Lola edge RN Intravenous Therapy/Heparin/Saline Lock 20 09/03/2022 7:35 AM Lola Dotson RN Gait/Transferring 0 09/03/2022 7:35 AM Lola Dotson RN Mental Status 0 09/03/2022 7:35 AM CDLola Mondragon RN Parks Fall Risk Score (Score >= 45 places fall precaution order) 35 09/03/2022 7:35 AM Lola Dotson RN Prior Fall Event (Autopopulated from EMR) None found 09/03/2022 7:35 AM Estefania Dotson RN * Integumentary Question Answer Date of Assessment Author Integumentary (RAYA) RAYA 09/03/2022 7:35 AM Lola Delacruz RN documented as of this encounter Mental Status * Question Answer Entry Date Author Neuro (RAYA) RAYA 09/03/2022 7:35 AM Lola Oleary RN documented in this encounter Plan of Treatment Not on file documented as of this encounter Visit Diagnoses Not on filedocumented in this encounter Care Teams Manager Spa Relationship Specialty Start Date End Date Khalif Reynolds MD [address] [place] [address] PCP - General Internal Medicine 10/28/17 Chriss Hendrickson MD [address] [place] [address] [place] [address] Referring Physician Obstetrics and Gynecology 01/18/20 Zaid Adams MD [address] [place] [address] Referring Physician Gastroenterology 02/14/23 Nadir Ross MD [address] [place] [address] Consulting Physician Cardiovascular Disease 02/14/23 Asad Aldridge MD [address] [facility] [address] [place] [address] Consulting Physician General Surgery 05/08/25 documented as of this encounter
--- OUTSIDE RECORDS SUMMARY | 2025-10-04 12:56 | XMS_ITS | Encounter Summary ---
Demographics Address [address] [place] [address] Mobile Phone Home Phone Preferred Language Bangladeshi Marital Status Single Buddhist Affiliation Unknown Race White Ethnic Group Not or Lati no Author Organization [facility] Healthcare Address [address] [place] [address] Care Team Providers Care Food Service Representative Name Role Phone Khalif Reynolds MD Primary Care Provide r Chriss Hendrickson MD Unavailable [phone] Zaid Adasm MD Unavailable [phone] Nadir Ross MD Unavailable [phone] Asad Aldridge MD Unavailable [phone] Encounter Details Date Type Department Care Team (Late st Contact Info) Description 07/07/2022 Telephone [facility] [address] [place] [address] Mellissa Junior RN Social History [...] on file 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 Gender Identity Not on file Sexual Orientation Not on file documented as of this encounter Functional Status * Question Answer Date of Assessment Author BP Method Automatic 07/09/2022 8:45 AM MARIA LUISAT Mellissa Mitchell RN MAP (mmHg) 82 07/09/2022 8:45 AM CDT Mellissa Mitchell RN * Question Answer Date of Assessment Author BP Location Right arm 07/09/2022 9:00 AM CDT Mehreen Montanez RN * Parks Fall Risk Question Answer Date of Assessment Author History of Falling 0 07/09/2022 7:16 AM MARIA LUISAT Osiris Moses RN Secondary Diagnosis 15 07/09/2022 7:16 AM Osiris Bernal RN Ambulatory Aids 15 07/09/2022 7:16 AM MARIA LUISAT Osiris Jang RN Intravenous Therapy/Heparin/Saline Lock 0 07/09/2022 7:16 AM Alexandr Jones RN Gait/Transferring 0 07/09/2022 7:16 AM Osiris Jones RN Mental Status 0 07/09/2022 7:16 AM CDT Osiris Muir RN Parks Fall Risk Score (Score >= 45 places fall precaution order) 30 07/09/2022 7:16 AM Osiris Jones RN Prior Fall Event (Autopopulated from EMR) None found 07/09/2022 7:16 AM Pattie Jones, KARLA * Moises Scale Question Answer Date of Assessment Author Sensory Perceptions 4 07/09/2022 7:16 AM Osiris Bernal RN Moisture 4 07/09/2022 7:16 AM Osiris Jones RN Activity 4 07/09/2022 7:16 AM Osiris Jones RN Mobility 4 07/09/2022 7:16 AM Osiris Jones RN Nutrition 3 07/09/2022 7:16 AM Osiris Jones RN Friction and Shear 3 07/09/2022 7:16 AM Osiris Jones RN Moises Scale Score 22 07/09/2022 7:16 AM Osiris Jones RN * Question Answer Date of Assessment Author Skin Condition/Temp Warm;Dry 07/09/2022 10:05 AM Leeroy Lowe RN * Integumentary Question Answer Date of Assessment Author Integumentary (WDL) WDL 07/09/2022 9:00 AM CD T Mehreen Montanez RN * Moises Scale Question Answer Date of Assessment Author Moises Scale Used Moises 07/09/2022 7:16 AM CDT Oisris Moses RN documented as of this encounter Mental Status * Question Answer Entry Date Author Level of Consciousness Alert;Awake 9:00 AM CDT Mehreen Montanez RN Orientation Oriented X4 (person, place, time, situation) 07/09/2022 9:00 AM CDT Mehreen Montanez RN Neuro (WD) WD 07/09/2022 9:00 AM CDT Mehreen Montanez RN documented in this encounter Plan of Treatment Not on file documented as of this encounter Visit Diagnoses Not on filedocumented in this encounter Care Teams Food Service Representative Relationship Specialty Start Date End Date Khalif Reynolds MD [address] [facility] [place] [address] [place], [place] [id number] PCP - General Internal Medicine 10/28/17 Chriss Hendrickson MD [address] [place] [address] [place] [address] Referring Physician Obstetrics and Gynecology 01/18/20 Zaid Adams MD [address] [place] [address] Referring Physician Gastroenterology 02/14/23 Nadir Ross MD [address] [place] [address] Consulting Physician Cardiovascular Disease 02/14/23 Asad Aldridge MD [address] [facility] [place] [address] [place] [address] Consulting Physician General Surgery 05/08/25 documented as of this encounter
== END 2025-10-04 12:50 | disposition home or self-care (01) ==
LOC: ANHFOHIMG 12:50
PROVIDERS: PCP Internal Medicine; Visit Provider Internal Medicine
DX: M81.0 Age-related osteoporosis without current pathological fracture (principal); M85.89 Other specified disorders of bone density and structure, multiple sites; Z78.0 Asymptomatic menopausal state
CPT/HCPCS: 77080